=== PATIENT | male | born 1935 | race Caucasian/White ===

== ENCOUNTER → 2020-09-22 10:49 | Outpatient (BNVA) | payer MEDICARE, SELFPAY | PROVIDERS: Visit Provider Family Medicine | DX: Z79.01 Long term (current) use of anticoagulants (principal) | CPT/HCPCS: 85610 ==

== ENCOUNTER → 2020-10-21 08:36 | Outpatient (BNVA) | payer MEDICARE, SELFPAY | PROVIDERS: PCP Family Medicine; Visit Provider Emergency Medicine | DX: Z86.711 Personal history of pulmonary embolism (principal) | CPT/HCPCS: 85610 ==

== ENCOUNTER → 2020-11-01 10:21 | Outpatient (BNVA) | payer MEDICARE, SELFPAY | PROVIDERS: PCP Family Medicine; Visit Provider Student in an Organized Health Care Education/Training Program | DX: D89.89 Other specified disorders involving the immune mechanism, not elsewhere classified (principal); M32.19 Other organ or system involvement in systemic lupus erythematosus | CPT/HCPCS: 80053; 85025; 86140; 86160 ==

== ENCOUNTER → 2020-11-21 10:30 | Outpatient (BNVA) | payer MEDICARE, SELFPAY | PROVIDERS: PCP Family Medicine; Referring Provider Family Medicine; Visit Provider Family Medicine | DX: Z79.01 Long term (current) use of anticoagulants (principal) | CPT/HCPCS: 85610 ==

== ENCOUNTER → 2020-12-05 10:45 | Outpatient (BNVA) | payer MEDICARE, SELFPAY | PROVIDERS: PCP Family Medicine; Visit Provider Family Medicine | DX: Z79.01 Long term (current) use of anticoagulants (principal) | CPT/HCPCS: 85610 ==

== ENCOUNTER 2020-12-29 13:26 | Emergency (ER) | payer MEDICARE, SELFPAY ==
[2020-12-29 13:37] VITALS: BP 161/71; PULSE 69; RESP 16; TEMP 35.9; O2SAT 96; BMI 20.7
--- NOTE | 2020-12-29 14:05 | CT_ITS ---
WS: [id number] CT HEAD TECHNIQUE: Noncontrast CT of the head obtained from the skullbase to the vertex. CLINICAL INFORMATION: fall on coumadin COMPARISON: None. DLP: 914.[address] scans at [facility] use at least one of these dose optimization techniques: automated e xposure control; mA and/or kV adjustment per patient size (includes targeted exams where dose is matc hed to clinical indication); or iterative reconstruction. FINDINGS: No evidence of intracranial hemorrhage or mass effect. Ventricular system and basal cisterns are seg[place] nt. Moderate small vessel changes with moderate parenchymal volume loss. Tiny chronic lacunar infarct right thalamus. No extra-axial fluid collections. No evidence of mass or mass effect. Normal garcia-wh ite differentiation. Mastoid air cells are well aerated. Mild mucosal thickening paranasal sinuses. Partial opacification the right sphenoid sinus with inspissated secretions. CT/CT head wo con* [id number] IMPRESSION: 1. No evidence of intracranial hemorrhage or mass effect. 2. Moderate small vessel changes. Moderate parenchymal volume loss. 3. Inspissated secretions right sphenoid sinus. 4. No acute intracranial findings.
--- NOTE | 2020-12-29 14:05 | CT_ITS ---
WS: [id number] CT FACIAL BONES TECHNIQUE: Noncontrast facial bones with coronal and sagittal reformatted images. CLINICAL INFORMATION: fall COMPARISON: None. DLP: 744.[address] scans at [facility] use at least one of these dose optimization techniques: automated e xposure control; mA and/or kV adjustment per patient size (includes targeted exams where dose is matc hed to clinical indication); or iterative reconstruction. FINDINGS: Mild soft tissue edema overlying the right orbit. Frontal sinuses are well aerated. Mild mucosal thic kening in the ethmoid air cells. Inspissated secretions in the right sphenoid sinus. Nasal bones are normal. Normal pterygoid plates. No evidence of mandibular fracture dislocation. Lateral orbits are n ormal in appearance. Normal sphenoid wing. Orbits are normal in appearance. Normal lamina papyracea. Inferior orbits are normal in appearance. N o acute facial fractures. CT/CT facial bones wo con* [id number] IMPRESSION: 1. No acute facial fractures. 2. Soft tissue edema overlying the right orbit. 3. Inspissated secretions right sphenoid sinus.
--- NOTE | 2020-12-29 14:12 | ED_ITS ---
HPI - Fall General: Chief Complaint: Fall Stated Complaint: Fell, abrasions along left eye Time Seen by Provider: 12/29/20 13:48 History of Present Illness: HPI Narrative: 85-year-old male presents emergency room after a fall. Patient was at a he was standing outside of the [facility] service he felt hot and uncomfortable lightheaded and dizzy fell had a brief loss of consciousness. Bystanders assisted him. He is not sure how long he was down. He does have quite an abrasion with avulsion of skin above his left eye. Patient is normally on Coumadin for previous PE. He has no deficits has not had vomiting or diarrhea cough shortness of breath not had any chest pain at all. No difficulty with speech or swallowing. MD complaint: fall Fall from: standing Fall witnessed: yes, by bystander Place fall occurred: other Loss of consciousness: Unsure Prolonged down time: no Symptoms prior to fall: lightheadedness and dizziness Context: other (Prolonged standing in the heat, orthostatic) Location of injury: head Severity: mild Associated symptoms-after fall: Denies abdominal pain, chest pain, confusion, difficulty walking, headache(s), hematuria, lightheadedness, neck pain, numbness, short of breath, vertigo or weakness Review of Systems Const: Denies: fever(s), chills, body aches, change in appetite, fatigue or malaise ENMT: Denies: throat pain, ear or mastoid pain, nasal discharge or nasal congestion Card: Denies: chest pain or lightheadedness Resp: Denies: dyspnea, productive cough or non-productive cough GI: Denies: abdominal pain : Denies: hematuria Musc: Denies: neck pain Skin/Breast: Denies: rash or pruritus Neuro: Denies: headache(s), difficulty walking, vertigo or confusion PFSH ED PFSH: Medical History Allergic rhinitis Chronic anticoagulation INR goal 2-3 Chronic neck pain Hx of basal cell carcinoma Hx pulmonary embolism Hypertension Type 2 diabetes mellitus Diet managed Surgical History Hx of cataract surgery Family History Other CAD (coronary artery disease) Diabetes Social History Smoking and tobacco status: former smoker Alcohol intake: current Alcohol intake frequency: holidays/special occasions only Physical Exam Const: COMMON NORMALS: no acute distress GENERAL APPEARANCE: cooperative and comfortable ORIENTATION/CONSCIOUSNESS: Yes awake, Yes oriented to person, Yes oriented to place and Yes oriented to time HENMT: COMMON NORMALS: normocephalic, hearing grossly normal bilaterally, external ears normal, EAC's normal, TM's normal bilaterally, Normal nasal mucous membranes and turbinates present, moist oral mucous membranes and oropharynx normal HEAD & SCALP: normocephalic NOSE: Normal nasal mucous membranes and turbinates present EXTERNAL EAR: Yes external ears normal EXTERNAL AUDITORY CANAL: EAC's normal TYMPANIC MEMBRANE: TM's normal bilaterally OTHER: Overall nausea skin at the left lateral supraorbital ridge. Nothing amenable to suturing superficial skin is avulsed completely off in several areas very irregular Eye: COMMON NORMALS: Equal, round and reactive pupils present, EOMs intact bilaterally, conjunctivae normal and no scleral icterus CONJUNCTIVA: Yes conjunctivae normal PUPIL: Yes Equal, round and reactive pupils present Neck/C-Spine: COMMON NORMALS: full ROM, no lymphadenopathy, supple and no JVD OTHER: C-spine cleared clinically no range of motion pain or discomfort no pain on palpation Lymph: LYMPHATIC: no lymphadenopathy noted and no lymphedema noted Resp: COMMON NORMALS: normal respiratory effort, No retractions, No use of accessory muscles and clear to auscultation bilaterally AUSCULTATION: clear to auscultation bilaterally Cardio: COMMON NORMALS: no JVD, regular rate, regular rhythm and No murmurs present (Cardio) RATE: regular rate RHYTHM: regular rhythm GI: COMMON NORMALS: Soft to palpation and No hepatosplenomegaly present AUSCULTATION: Yes normoactive bowel sounds PALPATION: Yes Soft to palpation, No Tenderness to palpation present (GI), No Guarding due to palpation present (GI) and Yes No hepatosplenomegaly present Extremity: COMMON NORMALS: normal to inspection, capillary refill normal, no clubbing, cyanosis or edema, no calf tenderness and no pedal edema Neuro: SENSORIUM/ORIENTATION: Yes oriented to person, Yes oriented to place and Yes oriented to time Skin: COMMON NORMALS: no rashes or lesions noted GENERAL SKIN EXAM: no rashes or lesions noted Course Vital Signs: Vital signs: Vital Signs Temperature 96.7 F L 12/29/20 13:37 Pulse Rate 63 12/29/20 16:32 Respiratory Rate 19 H 12/29/20 16:32 Blood Pressure 160/78 12/29/20 16:32 Pulse Oximetry 96 12/29/20 16:32 MDM - Fall MDM Narrative: Medical decision making narrative: CTs are unremarkable patient awake alert and oriented no other injuries. We will go and discharge him home. Lab Data: Labs: Lab Results 12/29/20 12/29/20 12/29/20 Range/Units 14:47 14:47 14:47 WBC 8.5 (4.0-10.0) 10^3/ uL RBC 3.78 L (4.1-5.3) 10^6/u L Hgb 10.7 L (11.7-16.6) g/dL Hct 33.5 L (42.0-52.0) % MCV 88.6 (80-94) fl MCH 28.3 (28.0-34.0) pg MCHC 31.9 (30.0-36.0) g/dL RDW 14.6 (12.1-15.1) % Plt Count 230 (130-400) 10^3/c mm MPV 10.6 H (7.4-10.4) fL Neut % (Auto) 77.1 % Lymph % (Auto) 9.0 % [place] % (Auto) 9.6 % Eos % (Auto) 3.4 % Baso % (Auto) 0.4 % Neut # (Auto) 6.59 (1.8-7.7) 10^3/u L Lymph # (Auto) 0.8 (0.8-4.8) 10^3/u L [place] # (Auto) 0.8 (0.2-0.9) 10^3/u L Eos # (Auto) 0.3 (0.0-0.8) 10^3/u L Baso # (Auto) 0.0 (0.0-0.1) 10^3/u L Nucleated RBC % (a uto) 0 % Nucleated RBCs # 0.0 /100WBC PT 27.70 H (12.1-14.9) SECO NDS INR 2.53 H (0.8-1.2) Sodium 130 L (136-145) mmol/L Potassium 3.7 (3.5-5.1) mmol/L Chloride 97 L (98-107) mmol/L Carbon Dioxide 23 (22-29) mmol/L Anion Gap 13.7 (5-19) BUN 18 (8-23) mg/dL Creatinine 1.0 (0.7-1.2) mg/dL GFR Calculation Not Reportable Glucose 118 H (65-115) mg/dL Calculated Osmolal ity 273 L (285-295) mOsm/k g Calcium 8.3 L (8.5-10.5) mg/dL Total Bilirubin 0.2 (0.15-1.2) mg/dL AST 32 (0-40) U/L ALT 31 (0-41) U/L Alkaline Phosphata se 69 (40-130) IU/L Total Protein 7.1 (6.6-8.7) g/dL Albumin 3.7 (3.5-5.2) g/dL Globulin 3.4 (1.3-4.6) g/dL Discharge Plan Discharge Patient Disposition: Home Clinical Impression: Syncope Condition: Stable Prescriptions: New mupirocin 2 % ointment 1 applic topical BID Qty: 22 RF: 0 No Action lisinopril 40 mg tablet 40 mg PO DAILY RF: 0 amlodipine 5 mg tablet 5 mg PO DAILY RF: 0 metoprolol tartrate 25 mg tablet 25 mg PO DAILY RF: 0 fluoxetine 20 mg capsule 20 mg PO DAILY MDD see pharmacy comment RF: 0 warfarin 5 mg tablet See Rx Instructions mg PO DAILY RF: 0 hydroxychloroquine 200 mg tablet 200 mg PO BID RF: 0 Discharge Orders: Discharge ED (Routine); Ordered 12/29/20 Ordered By: Basilio Quintero Referrals: Giana Marie MD [Primary Care Provider] - Discharge Diet: Usual diet Discharge Activity: Increase activity as tolerated Patient Instructions: Opioid Safety Activity Restrictions/Additional Instructions: Follow-up with your primary care doctor in 5 to 7 days. Coding Level of Care Code ED Software Systems Engineer for Steffany Fwd Exam Comprehensive
[2020-12-29 14:21] VITALS: BP 160/73; PULSE 60; RESP 15; O2SAT 94
[2020-12-29 14:56] LABS: Basophils % 0.4 %; Eosinophils # 0.3 10^3/uL (0.0-0.8); Eosinophils % 3.4 %; Hematocrit 33.5 % (42.0-52.0); Hemoglobin 10.7 g/dL (11.7-16.6); Lymphocytes # 0.8 10^3/uL (0.8-4.8); Mean Corpuscular HGB Conc 31.9 g/dL (30.0-36.0); Mean Corpuscular Hemoglobin 28.3 pg (28.0-34.0); Mean Corpuscular Volume 88.6 fl (80-94); Mean Platelet Volume 10.6 fL (7.4-10.4); Monocytes # 0.8 10^3/uL (0.2-0.9); Monocytes % 9.6 %; Neutrophils # 6.59 10^3/uL (1.8-7.7); Neutrophils % 77.1 %; Nucleated Red Blood Cells % 0 %; Platelet Count 230 10^3/cmm (130-400); Red Blood Count 3.78 10^6/uL (4.1-5.3); Red Cell Distribution Width 14.6 % (12.1-15.1); White Blood Count 8.5 10^3/uL (4.0-10.0)
[2020-12-29 15:10] LABS: INR 2.53 (0.8-1.2)
[2020-12-29 15:14] LABS: Alanine Aminotransferase 31 U/L (0-41); Albumin Level 3.7 g/dL (3.5-5.2); Alkaline Phosphatase 69 IU/L (40-130); Anion Gap 13.7 (5-19); Aspartate Amino Transferase 32 U/L (0-40); Blood Urea Nitrogen 18 mg/dL (8-23); Calcium 8.3 mg/dL (8.5-10.5); Carbon Dioxide 23 mmol/L (22-29); Chloride 97 mmol/L (98-107); Globulin 3.4 g/dL (1.3-4.6); Glucose 118 mg/dL (65-115); Osmolality Calculated 273 mOsm/kg (285-295); Potassium 3.7 mmol/L (3.5-5.1); Sodium 130 mmol/L (136-145); Total Bilirubin 0.2 mg/dL (0.15-1.2); Total Protein 7.1 g/dL (6.6-8.7)
[2020-12-29 15:20] VITALS: PULSE 65; RESP 22; O2SAT 99
--- NOTE | 2020-12-29 15:22 | PC.NURSE ---
PATIENT ABRASION CLEANED WITH STERILE WATER AND STERILE 4X4 GAUZE. PATIENT SUTURE REMOVAL KIT USED TO REMOVE SCABBED SKIN. NEOSPORIN APPLIED TO LACERATION. PATIENT TOLERATED WELL.
[2020-12-29] MEDS: neomycin-poly-bacitracin oint 0.9 gm Pkt 2 APPLIC TOPICAL (15:25)
[2020-12-29 15:48] VITALS: BP 182/86; PULSE 65; RESP 17; O2SAT 98
[2020-12-29 16:32] VITALS: BP 160/78; PULSE 63; RESP 19; O2SAT 96
== END 2020-12-29 16:33 | disposition home or self-care (01) ==
PROVIDERS: Emergency Provider Family Medicine; PCP Family Medicine
DX: R55 Syncope and collapse (principal); Z79.01 Long term (current) use of anticoagulants; Z86.711 Personal history of pulmonary embolism; I10 Essential (primary) hypertension; E11.9 Type 2 diabetes mellitus without complications; Z87.891 Personal history of nicotine dependence
CPT/HCPCS: 70450; 70486; 80053; 85025; 85610; 99283

== ENCOUNTER → 2021-01-20 10:35 | Outpatient (BNVA) | payer MEDICARE, SELFPAY | PROVIDERS: PCP Family Medicine; Visit Provider Family Medicine | DX: Z79.01 Long term (current) use of anticoagulants (principal); Z86.711 Personal history of pulmonary embolism | CPT/HCPCS: 85610 ==

== ENCOUNTER → 2021-01-23 11:18 | Outpatient (BNVA) | payer MEDICARE, SELFPAY | PROVIDERS: PCP Family Medicine; Visit Provider Family Medicine | DX: K11.7 Disturbances of salivary secretion (principal) | CPT/HCPCS: 80053; 86235 ==

== ENCOUNTER → 2021-02-20 10:40 | Outpatient (BNVA) | payer MEDICARE, SELFPAY | PROVIDERS: PCP Family Medicine; Referring Provider Family Medicine; Visit Provider Family Medicine | DX: Z79.01 Long term (current) use of anticoagulants (principal) | CPT/HCPCS: 85610 ==

== ENCOUNTER → 2021-03-27 09:19 | Outpatient (BNVA) | payer MEDICARE, SELFPAY | PROVIDERS: PCP Family Medicine; Visit Provider Family Medicine | DX: Z86.711 Personal history of pulmonary embolism (principal); I34.0 Nonrheumatic mitral (valve) insufficiency | CPT/HCPCS: 85610 ==

== ENCOUNTER → 2021-04-23 10:30 | Outpatient (BNVA) | payer MEDICARE, SELFPAY | PROVIDERS: PCP Family Medicine; Visit Provider Emergency Medicine | DX: Z86.711 Personal history of pulmonary embolism (principal); I34.0 Nonrheumatic mitral (valve) insufficiency; I10 Essential (primary) hypertension; E11.9 Type 2 diabetes mellitus without complications; R10.9 Unspecified abdominal pain; R10.11 Right upper quadrant pain | CPT/HCPCS: 80053; 83690; 83880 ==

== ENCOUNTER → 2021-04-24 11:04 | Outpatient (BNVA) | payer MEDICARE, SELFPAY | PROVIDERS: PCP Family Medicine; Visit Provider Emergency Medicine | DX: E11.9 Type 2 diabetes mellitus without complications (principal); Z79.01 Long term (current) use of anticoagulants | CPT/HCPCS: 85610 ==

== ENCOUNTER → 2021-06-07 10:26 | Outpatient (BNVA) | payer MEDICARE, SELFPAY | PROVIDERS: PCP Family Medicine; Visit Provider Family Medicine | DX: Z79.01 Long term (current) use of anticoagulants (principal); Z86.711 Personal history of pulmonary embolism | CPT/HCPCS: 85610 ==

== ENCOUNTER → 2021-06-24 09:32 | Outpatient (BNVA) | payer MEDICARE, SELFPAY | PROVIDERS: PCP Family Medicine; Referring Provider Nurse Practitioner Family; Visit Provider Nurse Practitioner Family | DX: R19.8 Other specified symptoms and signs involving the digestive system and abdomen (principal); K21.9 Gastro-esophageal reflux disease without esophagitis; R14.3 Flatulence | CPT/HCPCS: 83630; 87338 ==

== ENCOUNTER → 2021-06-26 09:23 | Outpatient (BNVA) | payer MEDICARE, SELFPAY | PROVIDERS: PCP Family Medicine; Visit Provider Internal Medicine | DX: M35.0C Sjogren syndrome with dental involvement (principal); Z11.59 Encounter for screening for other viral diseases; Z11.1 Encounter for screening for respiratory tuberculosis; Z87.891 Personal history of nicotine dependence | CPT/HCPCS: 99204 ==

== ENCOUNTER → 2021-06-28 10:53 | Outpatient (BNVA) | payer MEDICARE, SELFPAY | PROVIDERS: PCP Family Medicine; Visit Provider Internal Medicine | DX: M35.0C Sjogren syndrome with dental involvement (principal); I10 Essential (primary) hypertension; Z79.01 Long term (current) use of anticoagulants; D89.89 Other specified disorders involving the immune mechanism, not elsewhere classified; Z11.59 Encounter for screening for other viral diseases | CPT/HCPCS: 84443; 85610; 85651; 86140; 86160; 86162; 86235; 86255; 86376; 86480; 86704; 86803; 87340 ==

== ENCOUNTER → 2021-07-18 09:56 | Outpatient (BNVA) | payer MEDICARE, SELFPAY | PROVIDERS: PCP Family Medicine; Visit Provider Family Medicine | DX: Z86.711 Personal history of pulmonary embolism (principal); Z79.01 Long term (current) use of anticoagulants; K63.89 Other specified diseases of intestine | CPT/HCPCS: 85610 ==

== ENCOUNTER 2021-08-08 12:26 | Outpatient (CLI) | payer MEDICARE, SELFPAY ==
--- NOTE | 2021-08-08 | USCV_ITS ---
Moiz Hernandez Age: 86 Gender: M : 1935 Exam Date: 08/08/2021 13:15 Ordering Phys: Giana Marie MD Technologist: VLADIMIR Exam Location: [facility] [place] Indication: NONRHEUMATIC MITRAL VALVE INSUFFICIENCY BP: 144 / 77 HR: 61 Rhythm: Sinus Technical Quality: Adequate MEASUREMENTS (Male / Female) Normal Values 2D ECHO LV Diastolic Diameter PLAX 5.3 cm 4.2 - 5.9 / 3.9 - 5.3 cm LV Systolic Diameter PLAX 3.2 cm IVS Diastolic Thickness 1.0 cm 0.6 - 1.0 / 0.6 - 0.9 cm IVS Systolic Thickness 1.9 cm LVPW Diastolic Thickness 1.3 cm 0.6 - 1.0 / 0.6 - 0.9 cm LVPW Systolic Thickness 1.4 cm RV Chamber Size 3.3 cm LVOT Diameter 2.1 cm LV Ejection Fraction 2D Teich 71.3 % LV Ejection Fraction MOD 2C 66.3 % LV Ejection Fraction 2C AL 66.4 % LA Diameter 4.7 cm LA Width 4.7 cm LA Height 5.1 cm RA Width 4.2 cm RA Height 6.2 cm Aorta at Sinotubular Diameter 3.2 cm M-MODE Aortic Annulus Diameter 3.2 cm LA Ao Ratio MM 1.4 MV E Point Septal Separation 0.5 cm DOPPLER AV Peak Velocity 314.0 cm/s LVOT Peak Velocity 109.0 cm/s AV Area Cont Eq vti 1.1 cm squared AV Area Cont Eq pk 1.2 cm squared MV Area PHT 5.0 cm squared MV E' Velocity 79.5 cm/s Mitral E to MV E' Ratio 10.0 Mitral E to LV E' Lateral Ratio 9.3 Mitral E to LV E' Septal Ratio 10.9 TR Peak Velocity 324.0 cm/s TR Peak Gradient 42.0 mmHg TR Mean Velocity 232.7 cm/s TR Mean Gradient 24.5 mmHg TR Velocity Time Integral 111.5 cm TV Peak E Velocity 62.0 cm/s PV Peak Velocity 89.0 cm/s RV Acceleration Time 0.1 s RV Ejection Time 0.3 s RV AcT/ET 0.3 FINDINGS Left Ventricle Normal left ventricular size. LV systolic function is normal with EF of 55-60%. No regional wall motion abnormalities. Right Ventricle The right ventricle is normal in size and function. Right Atrium The right atrium is normal in size. Left Atrium The left atrium is dilated Mitral Valve Moderate mitral annular calcification and thickened mitral valve without significant stenosis or prolapse. There is moderate to severe mitral regurgitation. Aortic Valve Aortic valve is thickened. Mild to moderarte aortic stenosis. Aortic valve area of 1.06cm2 with mean gradient of 20mmHg. There is mild to moderate aortic regurgitation. Tricuspid Valve Structurally normal tricuspid valve without significant stenosis. Moderate tricuspid regurgitation. RVSP is 40-45mmHg. This is consistent with mild pulmonary hypertension Pulmonic Valve Structurally normal pulmonic valve without significant stenosis. There is mild pulmonic regurgitation. Pericardium Normal pericardium without effusion. Aorta Normal ascending aorta dimension. CONCLUSIONS LV systolic function is normal with EF of 55-60% Left atrial enlargement Moderate mitral annular calcification and thickened mitral valve without significant stenosis or prolapse. There is moderate to severe mitral regurgitation. Aortic valve is thickened. Mild to moderarte aortic stenosis. Aortic valve area of 1.06cm2 with mean gradient of 20mmHg. There is mild to moderate aortic regurgitation. Structurally normal tricuspid valve without significant stenosis. Moderate tricuspid regurgitation. RVSP is 40-45mmHg. This is consistent with mild pulmonary hypertension There is mild pulmonic regurgitation. No comparison studies are available Andrew Decker MD (Electronically Signed) Final Date: 21 Aug 2021 10:14 S
--- NOTE | 2021-08-08 14:10 | XR_ITS ---
WS: [id number] LEFT RIBS, MULTIPLE VIEWS HISTORY: CHEST PAIN COMPARISON: None available. Ribs: No rib fractures or bone destruction identified. Lungs and mediastinum: Visualized lung is clear. Atherosclerotic changes within the aorta. Osteopenia. Moderate facet joint arthritis and spondylitic changes throughout the thoracic spine. XR/XR ribs LT 2V* [id number] IMPRESSION: No LEFT rib fractures identified.
== END 2021-08-08 12:27 | disposition home or self-care (01) ==
LOC: RAD 12:27
PROVIDERS: PCP Family Medicine; Visit Provider Family Medicine
DX: I34.0 Nonrheumatic mitral (valve) insufficiency (principal)
CPT/HCPCS: 71100; 93306

== ENCOUNTER → 2021-08-10 10:38 | Outpatient (BNVA) | payer MEDICARE, SELFPAY | PROVIDERS: PCP Family Medicine; Visit Provider Internal Medicine | DX: M35.0C Sjogren syndrome with dental involvement (principal); D89.89 Other specified disorders involving the immune mechanism, not elsewhere classified; Z79.899 Other long term (current) drug therapy; Z87.891 Personal history of nicotine dependence | CPT/HCPCS: 99214 ==

== ENCOUNTER → 2021-09-12 10:12 | Outpatient (BNVA) | payer MEDICARE, SELFPAY | PROVIDERS: PCP Family Medicine; Visit Provider Emergency Medicine | DX: Z79.01 Long term (current) use of anticoagulants (principal); Z86.711 Personal history of pulmonary embolism; I10 Essential (primary) hypertension | CPT/HCPCS: 85610 ==

== ENCOUNTER → 2021-10-20 09:52 | Outpatient (BNVA) | payer MEDICARE, SELFPAY | PROVIDERS: PCP Family Medicine; Visit Provider Family Medicine | DX: M35.0C Sjogren syndrome with dental involvement (principal); E11.9 Type 2 diabetes mellitus without complications; I10 Essential (primary) hypertension; Z13.220 Encounter for screening for lipoid disorders; Z13.6 Encounter for screening for cardiovascular disorders; Z79.01 Long term (current) use of anticoagulants | CPT/HCPCS: 80048; 80061; 83036; 85610; 85651; 86140 ==

== ENCOUNTER 2021-12-22 09:12 | Emergency (ER) | payer MEDICARE, SELFPAY ==
[2021-12-22 09:16] VITALS: BP 129/65; PULSE 80; RESP 18; TEMP 36.3; O2SAT 95
[2021-12-22 09:24] VITALS: O2SAT 95
--- NOTE | 2021-12-22 09:32 | XR_ITS ---
WS: [id number] Exam: XR chest 1V portable [id number] Date/Time of Exam: 12/22/2021 9:37 AM Reason For Exam: SOB, cough, probable COvid No priors. The lungs are fully expanded and clear. Normal cardiomediastinal silhouette. No pleural effusions. Re gional bony elements appear normal. XR/XR chest 1V portable [id number] IMPRESSION: 1. No acute cardiopulmonary finding.
--- NOTE | 2021-12-22 09:33 | ED_ITS ---
HPI - COVID General: Chief Complaint: COVID symptoms Stated Complaint: low o2, chills Time Seen by Provider: 12/22/21 09:13 Source: patient Mode of arrival: ambulatory Limitations: no limitations Triage information: No fever, cough or shortness of breath . Exposure to COVID + person last 14 days History of Present Illness: 86-year-old male presents to the ER today with for fever, body aches, chills, congestion, cough, chest congestion x24 hours. Patient reports his had COVID last week. He reports he has been not feeling well for couple of days but last night his symptoms really worsened. Patient reports he did not sleep much last night due to the chills and body aches. Patient reports he feels like his chest is tight and he has a nonproductive cough. Patient has been taking Mucinex at home but denies any other [id number] medications. COVID Results: SARS-CoV-2 Antigen (Rapid) Positive (Negative) H 12/22/21 10:0 0 Review of Systems General: Reports: 10 or more systems reviewed and unremarkable except in HPI and below PFSH ED PFSH: Medical History Allergic rhinitis Chronic anticoagulation INR goal 2-3 Chronic neck pain Hx of basal cell carcinoma Hx pulmonary embolism Hypertension Type 2 diabetes mellitus Diet managed Surgical History Hx of cataract surgery Family History Other CAD (coronary artery disease) Cancer Diabetes Heart attack Hyperlipidemia Hypertension Rheumatoid arthritis Stroke Denies family history of Lupus Chronic kidney disease (CKD) Social History Smoking and tobacco status: former smoker Alcohol intake: current Alcohol intake frequency: few times a week History of recent travel: No Physical Exam Const: COMMON NORMALS: no acute distress, average body habitus, patient orient ed x3, no limitations, healthy appearing, alert and well nourished HENMT: COMMON NORMALS: normocephalic, atraumatic, external ears normal, Normal external nose present, Normal nasal mucous membranes and turbinates present and moist oral mucous membranes HEAD & SCALP: normocephalic and atraumatic NOSE: Normal external nose present and Normal nasal mucous membranes and turbinates present EXTERNAL EAR: Yes external ears normal Eye: COMMON NORMALS: conjunctivae normal CONJUNCTIVA: Yes conjunctivae normal Neck/C-Spine: COMMON NORMALS: full ROM and no lymphadenopathy Resp: COMMON NORMALS: normal respiratory effort and No retractions AUSCULTATION: no rales, rhonchi lower bilaterally and no wheezes Cardio: COMMON NORMALS: regular rate and regular rhythm; negative for No murmurs present (Cardio) RATE: regular rate RHYTHM: regular rhythm HEART SOUNDS: Murmur heart sound present GI: COMMON NORMALS: Normal to inspection, nondistended, normoactive bowel soun ds present, Soft to palpation and non-tender PALPATION: Yes Soft to palpation Extremity: COMMON NORMALS: normal to inspection and full ROM Neuro: COMMON NORMALS: patient oriented x3 SENSORIUM/ORIENTATION: Yes alert Psych: COMMON NORMALS: mental status grossly normal, Normal thought process present and cooperative THOUGHT PROCESS: Normal thought process present Skin: COMMON NORMALS: no rashes or lesions noted GENERAL SKIN EXAM: no rashes or lesions noted Course ED course: 86-year-old male presents to the ER today with for possible COVID. Patient reports his had COVID last week. He reports last night his symptoms really worsened. He reports fever, chills, body aches, cough, congestion, chest congestion. Patient reports has been taken Mucinex with minimal improvement at home. We will do a COVID swab and labs today. Patient does have some abnormal breath sounds we will do a chest x-ray also. Vital Signs: Vital signs: Vital Signs Temperature 97.3 F L 12/22/21 09:16 Pulse Rate 80 12/22/21 10:58 Respiratory Rate 15 12/22/21 10:58 Blood Pressure 133/68 12/22/21 10:58 Pulse Oximetry 95 12/22/21 10:58 Oxygen Delivery Me thod 12/22/21 10:58 MDM - COVID Medical Decision Making 86-year-old male presents to the ER today with for possible COVID. Patient reports his had COVID last week. He reports last night his symptoms really worsened. He reports fever, chills, body aches, cough, congestion, chest congestion. Patient reports has been taken Mucinex with minimal improvement at home. We will do a COVID swab and labs today. Patient does have some abnormal breath sounds we will do a chest x-ray also. Labs are mostly unremarkable. Chest x-ray is normal. Patient was COVID+. He is stable and vitals are stable. We discussed treatments for COVID including Paxlovid that however patient does not wish to have the Paxlovid that at this time. Recommended patient take [id number] medications for symptomatic relief. Alternate Tylenol and ibuprofen for pain and chills. Take Mucinex 1200 mg twice daily. Follow-up with PCP in 5 to 7 days if no improvement. Return to the ER with any new or worsening symptoms. Patient verbalized understanding was in agreement with the treatment plan. Lab Data : 12/22/21 10:00 12/22/21 10:00 Radiology Impressions Chest X-Ray 12/22/21 09:32 IMPRESSION: 1. No acute cardiopulmonary finding. Laboratory Results WBC 9.4 10^3/uL (4.0-10.0) 12/22/21 10:00 RBC 4.37 10^6/uL (4.1-5.3) 12/22/21 10:00 Hgb 11.9 g/dL (11.7-16.6) 12/22/21 10:00 Hct 37.4 % (42.0-52.0) L 12/22/21 10:00 MCV 85.6 fl (80-94) 12/22/21 10:00 MCH 27.2 pg (28.0-34.0) L 12/22/21 10:00 MCHC 31.8 g/dL (30.0-36.0) 12/22/21 10:00 RDW 14.9 % (12.1-15.1) 12/22/21 10:00 Plt Count 273 10^3/cmm (130-400) 12/22/21 10:00 MPV 10.5 fL (7.4-10.4) H 12/22/21 10:00 Neut % (Auto) 85.1 % 12/22/21 10:00 Lymph % (Auto) 9.0 % 12/22/21 10:00 [place] % (Auto) 5.1 % 12/22/21 10:00 Eos % (Auto) 0.1 % 12/22/21 10:00 Baso % (Auto) 0.1 % 12/22/21 10:00 Neut # (Auto) 7.98 10^3/uL (1.8-7.7) H 12/22/21 10:00 Lymph # (Auto) 0.8 10^3/uL (0.8-4.8) 12/22/21 10:00 [place] # (Auto) 0.5 10^3/uL (0.2-0.9) 12/22/21 10:00 Eos # (Auto) 0.0 10^3/uL (0.0-0.8) 12/22/21 10:00 Baso # (Auto) 0.0 10^3/uL (0.0-0.1) 12/22/21 10:00 Nucleated RBC % (auto) 0 % 12/22/21 10:00 Nucleated RBCs # 0.0 /100WBC 12/22/21 10:00 Sodium 133 mmol/L (136-145) L 12/22/21 10:00 Potassium 4.6 mmol/L (3.5-5.1) 12/22/21 10:00 Chloride 97 mmol/L (98-107) L 12/22/21 10:00 Carbon Dioxide 24 mmol/L (22-29) 12/22/21 10:00 Anion Gap 16.6 (5-19) 12/22/21 10:00 BUN 23 mg/dL (8-23) 12/22/21 10:00 Creatinine 1.1 mg/dL (0.7-1.2) 12/22/21 10:00 GFR Calculation Not Reportable 12/22/21 10:00 Glucose 128 mg/dL (65-115) H 12/22/21 10:00 Calculated Osmolality 281 mOsm/kg (285-295) L 12/22/21 10:00 Calcium 8.7 mg/dL (8.5-10.5) 12/22/21 10:00 Total Bilirubin 0.4 mg/dL (0.15-1.2) 12/22/21 10:00 AST 38 U/L (0-40) 12/22/21 10:00 ALT 36 U/L (0-41) 12/22/21 10:00 Alkaline Phosphatase 82 U/L (40-130) 12/22/21 10:00 Total Protein 9.0 g/dL (6.6-8.7) H 12/22/21 10:00 Albumin 3.8 g/dL (3.5-5.2) 12/22/21 10:00 Globulin 5.2 g/dL (1.3-4.6) H 12/22/21 10:00 SARS-CoV-2 Ag (Rapid) Positive (Negative) H 12/22/21 10:00 SARS-CoV-2 Antigen (Rapid) Positive (Negative) H 12/22/21 10:0 0 Critical Care Time Critical Care Time: Critical Care Time: No Discharge Plan Discharge Patient Disposition: Home Clinical Impression: COVID-19 Condition: Stable Prescriptions: No Action warfarin 5 mg tablet See Rx Instructions PO DAILY Protocol: Dose Management Condition: Saturday Dose/Route: 5 mg Instruction: 1 x 5 mg tablet Condition: Saturday Dose/Route: 7.5 mg Instruction: 1.5 x 5 mg tablets Condition: Saturday Dose/Route: 5 mg Instruction: 1 x 5 mg tablet Condition: Saturday Dose/Route: 5 mg Instruction: 1 x 5 mg tablet Condition: Dose/Route: 5 mg Instruction: 1 x 5 mg tablet Condition: Saturday Dose/Route: 7.5 mg Instruction: 1.5 x 5 mg tablets Condition: Saturday Dose/Route: 5 mg Instruction: 1 x 5 mg tablet Protocol Text: Adjustment Start Date: Saturday07/18/21 INR Value: 27.1 Seconds INR Date: 07/18/21 Recheck Date: 08/17/21 Rx Instructions: 5mg on Sat, , , Sat, Sat 7.5mg on , & Sat tamsulosin [Flomax] 0.4 mg capsule 0.4 mg PO DAILY Qty: 60 0RF Hold Instructions: Home Medication placed on hold at Doctor's office hydroxychloroquine 200 mg tablet 200 mg PO BID Qty: 60 3RF amlodipine 10 mg tablet 10 mg PO DAILY 90 Days Qty: 90 1RF fluticasone propionate [Flonase Allergy Relief] 50 mcg/actuation spra y,suspension 1 spray intranasal BID Qty: 16 5RF Rx Instructions: administer into each nostril lisinopril 40 mg tablet 40 mg PO DAILY 90 Days Qty: 90 1RF metoprolol succinate 25 mg tablet extended release 24 hr 25 mg PO DAILY 90 Days Qty: 90 1RF omeprazole 40 mg capsule,delayed release(DR/EC) 40 mg PO BID 90 Days Qty: 180 1RF fluoxetine 20 mg capsule 20 mg PO DAILY 30 Days Qty: 30 1RF Hold Instructions: Home Medication placed on hold at Doctor's office Discharge Orders: Discharge ED (Routine); Ordered 12/22/21 Ordered By: Jo-Ann Kemp Referrals: Giana Marie MD [Primary Care Provider] - Discharge Diet: Usual diet Discharge Activity: Increase activity as tolerated Patient Instructions: Opioid Safety Activity Restrictions/Additional Instructions: Take Mucinex 1200 mg twice daily as discussed. Push fluids. Alternate Tylenol and ibuprofen for pain and fevers. Follow-up with PCP in 5 to 7 days if no improvement. Return to the ER with new or worsening symptoms. Coding Level of Care Code ED Organic Preparation Technician for Steffany Redmond Exam Comprehensive
[2021-12-22 10:10] LABS: Basophils % 0.1 %; Eosinophils % 0.1 %; Hematocrit 37.4 % (42.0-52.0); Hemoglobin 11.9 g/dL (11.7-16.6); Lymphocytes # 0.8 10^3/uL (0.8-4.8); Mean Corpuscular HGB Conc 31.8 g/dL (30.0-36.0); Mean Corpuscular Hemoglobin 27.2 pg (28.0-34.0); Mean Corpuscular Volume 85.6 fl (80-94); Mean Platelet Volume 10.5 fL (7.4-10.4); Monocytes # 0.5 10^3/uL (0.2-0.9); Monocytes % 5.1 %; Neutrophils # 7.98 10^3/uL (1.8-7.7); Neutrophils % 85.1 %; Nucleated Red Blood Cells % 0 %; Platelet Count 273 10^3/cmm (130-400); Red Blood Count 4.37 10^6/uL (4.1-5.3); Red Cell Distribution Width 14.9 % (12.1-15.1); White Blood Count 9.4 10^3/uL (4.0-10.0)
[2021-12-22 10:30] LABS: Alanine Aminotransferase 36 U/L (0-41); Albumin Level 3.8 g/dL (3.5-5.2); Alkaline Phosphatase 82 U/L (40-130); Blood Urea Nitrogen 23 mg/dL (8-23); Calcium 8.7 mg/dL (8.5-10.5); Carbon Dioxide 24 mmol/L (22-29); Chloride 97 mmol/L (98-107); Globulin 5.2 g/dL (1.3-4.6); Glucose 128 mg/dL (65-115); Osmolality Calculated 281 mOsm/kg (285-295); Sodium 133 mmol/L (136-145); Total Bilirubin 0.4 mg/dL (0.15-1.2)
[2021-12-22 10:41] LABS: Anion Gap 16.6 (5-19); Aspartate Amino Transferase 38 U/L (0-40); Potassium 4.6 mmol/L (3.5-5.1)
[2021-12-22 10:58] VITALS: BP 133/68; PULSE 80; RESP 15; O2SAT 95
[2021-12-22 11:04] LABS: SARS Covid-2 Antigen Positive (Negative)
== END 2021-12-22 11:00 | disposition home or self-care (01) ==
PROVIDERS: Emergency Provider Physician Assistant; PCP Family Medicine
DX: U07.1 COVID-19 (principal); Z79.01 Long term (current) use of anticoagulants; I10 Essential (primary) hypertension; E11.9 Type 2 diabetes mellitus without complications; Z87.891 Personal history of nicotine dependence
CPT/HCPCS: 71045; 80053; 85025; 87426; 99284

== ENCOUNTER → 2021-12-27 10:46 | Outpatient (BNVA) | payer MEDICARE, SELFPAY | PROVIDERS: PCP Family Medicine; Visit Provider Emergency Medicine | DX: R10.9 Unspecified abdominal pain (principal); R39.11 Hesitancy of micturition; R35.1 Nocturia; N39.9 Disorder of urinary system, unspecified; R19.8 Other specified symptoms and signs involving the digestive system and abdomen; R19.4 Change in bowel habit; Z79.01 Long term (current) use of anticoagulants | CPT/HCPCS: 80053; 81000; 85025; 85610; 87086; G0103 ==

== ENCOUNTER → 2021-12-28 09:27 | Outpatient (BNVA) | payer MEDICARE, SELFPAY | PROVIDERS: PCP Family Medicine; Visit Provider Emergency Medicine | DX: R10.9 Unspecified abdominal pain (principal); R39.11 Hesitancy of micturition; R35.1 Nocturia; N39.9 Disorder of urinary system, unspecified; R19.8 Other specified symptoms and signs involving the digestive system and abdomen; R19.4 Change in bowel habit; Z79.01 Long term (current) use of anticoagulants | CPT/HCPCS: 82270 ==

== ENCOUNTER → 2022-01-04 12:39 | Outpatient (BNVA) | payer MEDICARE, SELFPAY | PROVIDERS: PCP Family Medicine; Visit Provider Surgery | DX: R14.0 Abdominal distension (gaseous) (principal); R10.13 Epigastric pain | CPT/HCPCS: 99203 ==

== ENCOUNTER → 2022-01-12 10:10 | Outpatient (BNVA) | payer MEDICARE, SELFPAY | PROVIDERS: PCP Family Medicine; Visit Provider Family Medicine | DX: Z79.01 Long term (current) use of anticoagulants (principal) | CPT/HCPCS: 85610 ==

== ENCOUNTER 2022-02-05 10:04 | Outpatient (CLI) | payer MEDICARE, SELFPAY ==
--- NOTE | 2022-02-05 10:30 | US_ITS ---
WS: [id number] RIGHT UPPER QUADRANT ULTRASOUND HISTORY: abd discomfort COMPARISON: None available. Liver: 17.0 cm in length. Liver is slightly enlarged. No mass or bile duct dilatation. The entire latha er is difficult to visualize due to patient's body habitus. No bile duct dilatation. Portal Vein: Normal hepatopetal flow with monophasic waveform. Gallbladder: Normally distended gallbladder with no stones or wall thickening. CBD: 0.7 cm Pancreas: Poorly visualized. The head is obscured by bowel gas. Tail is also obscured. Body is normal . Right kidney: 11.4 cm in length. Normal size kidney. Simple cyst in the upper pole measures 2.7 x 3.5 x 2.5 cm. Aorta and IVC: Mild atherosclerosis aorta. No ascites. US/US gall bladder [id number] IMPRESSION: 1. Normal gallbladder. 2. Mild hepatomegaly. 3. Simple RIGHT renal cyst.
== END 2022-02-05 10:05 | disposition home or self-care (01) ==
LOC: RAD 10:05
PROVIDERS: PCP Family Medicine; Visit Provider Surgery
DX: R10.9 Unspecified abdominal pain (principal); N28.1 Cyst of kidney, acquired; R16.0 Hepatomegaly, not elsewhere classified
CPT/HCPCS: 76705

== ENCOUNTER → 2022-02-08 12:10 | Outpatient (BNVA) | payer MEDICARE, SELFPAY | PROVIDERS: PCP Family Medicine; Visit Provider Family Medicine | DX: Z79.01 Long term (current) use of anticoagulants (principal); I35.0 Nonrheumatic aortic (valve) stenosis | CPT/HCPCS: 85610 ==

== ENCOUNTER → 2022-02-14 10:04 | Outpatient (BNVA) | payer MEDICARE, SELFPAY | PROVIDERS: PCP Family Medicine; Visit Provider Surgery | DX: Z09 Encounter for follow-up examination after completed treatment for conditions other than malignant neoplasm (principal); R14.0 Abdominal distension (gaseous) | CPT/HCPCS: 99213 ==

== ENCOUNTER → 2022-02-22 11:46 | Outpatient (BNVA) | payer MEDICARE, SELFPAY | PROVIDERS: PCP Family Medicine; Visit Provider Family Medicine | DX: Z79.01 Long term (current) use of anticoagulants (principal); I35.0 Nonrheumatic aortic (valve) stenosis | CPT/HCPCS: 85610 ==

== ENCOUNTER 2022-03-02 08:22 | Outpatient (CLI) | payer MEDICARE, SELFPAY ==
--- NOTE | 2022-03-02 08:29 | FL_ITS ---
WS: [id number] Barium Enema TECHNICAL: Double contrast barium enema. FLUOROSCOPY TIME: 5min [id number] # of spot films: 29 CLINICAL INFORMATION: ABDOMINAL BLOATING COMPARISON: None. FINDINGS: Tortuous sigmoid colon. Prominent sigmoid and descending colon diverticulosis. Additional d iverticulosis in the transverse colon. No evidence of high-grade stricture or obstructing mass. Evide nce of prior diverticulitis with mild stricturing in the sigmoid colon. Normal ileocecal valve. Contr ast rapidly travels to the ileocecal valve without evidence of obstructing stricture or mass. No susp icious high-grade filling defects. Osteopenia. No other suspicious findings. FL/FL barium enema w air* [id number] IMPRESSION: 1. Extensive colonic diverticulosis more prominent in the descending colon and sigmoid colon. 2. Evidence of prior sigmoid diverticulitis with mild stricturing of the sigmo id colon. No obstruction. 3. Tortuous somewhat patulous sigmoid colon. 4. No evidence of high-grade stricture or obstructing mass. 5. Normal ileocecal valve. 6. No other significant findings.
== END 2022-03-02 08:23 | disposition home or self-care (01) ==
LOC: RAD 08:22
PROVIDERS: PCP Family Medicine; Visit Provider Surgery
DX: R14.0 Abdominal distension (gaseous) (principal); K57.90 Diverticulosis of intestine, part unspecified, without perforation or abscess without bleeding
CPT/HCPCS: 74280

== ENCOUNTER 2022-03-07 09:30 | Outpatient (CLI) | payer MEDICARE, SELFPAY ==
--- NOTE | 2022-03-07 10:00 | NM_ITS ---
WS: [id number] NUCLEAR MEDICINE HIDA SCAN CLINICAL INFORMATION: abd pain TECHNIQUE: Following intravenous administration of 4.8 mCi of technetium 99m mebrofenin, images of th e abdomen were obtained over the course of 60 minutes. Next, gallbladder ejection fraction was determ ined by obtaining preprandial and one-hour postprandial images of the gallbladder following oral janette stion of Ensure. COMPARISON: February 05, 2022 FINDINGS: Normal hepatic uptake at 5 minutes. Mild hepatomegaly. Normal hepatic excretion. Gallbladder is visua lized by 30 minutes. No evidence of acute cholecystitis. Normal common bile duct and small bowel acti vity. Gallbladder ejection fraction 94% within normal limits. No evidence of chronic cholecystitis. NM/NM hepatobiliary w phar* [id number] IMPRESSION: Normal HIDA scan
== END 2022-03-07 09:31 | disposition home or self-care (01) ==
LOC: RAD 09:31
PROVIDERS: PCP Family Medicine; Visit Provider Surgery
DX: R10.9 Unspecified abdominal pain (principal); R14.0 Abdominal distension (gaseous)
CPT/HCPCS: 78227; A9537

== ENCOUNTER → 2022-03-09 11:37 | Outpatient (BNVA) | payer MEDICARE, SELFPAY | PROVIDERS: PCP Family Medicine; Referring Provider Family Medicine; Visit Provider Family Medicine | DX: I35.0 Nonrheumatic aortic (valve) stenosis (principal); Z79.01 Long term (current) use of anticoagulants | CPT/HCPCS: 85610 ==

== ENCOUNTER → 2022-03-21 14:22 | Outpatient (BNVA) | payer MEDICARE, SELFPAY | PROVIDERS: PCP Family Medicine; Visit Provider Surgery | DX: Z09 Encounter for follow-up examination after completed treatment for conditions other than malignant neoplasm (principal); R14.0 Abdominal distension (gaseous) | CPT/HCPCS: 99213 ==

== ENCOUNTER 2022-03-29 15:38 | Emergency (ER) | payer MEDICARE, SELFPAY ==
[2022-03-29 15:51] VITALS: BP 167/83; PULSE 79; RESP 14; TEMP 36.9; O2SAT 98; BMI 20.7
--- NOTE | 2022-03-29 16:24 | CTR_ITS ---
PROCEDURE INFORMATION: Exam: CT Head Without Contrast Exam date and time: 03/29/2022 4:37 PM Age: 86 years old Clinical indication: Injury or trauma; Fall; Blunt trauma (contusions or hematomas); Additional info: Fall/trauma TECHNIQUE: Imaging protocol: Computed tomography of the head without contrast. Radiation optimization: All CT scans at this facility use at least one of these dose optimization techniques: automated exposure control; mA and/or kV adjustment per patient size (includes targeted exams where dose is matched to clinical indication); or iterative reconstruction. COMPARISON: CT head wo con* [id number] 12/29/2020 2:10 PM RADIATION DOSE METRICS: Total DLP (mGy-cm): 1049.58 FINDINGS: Brain: No hemorrhage. No edema. Moderate diffuse cerebral atrophy and mild sequela of chronic small vessel ischemic disease. No mass effect. Cerebral ventricles: No ventriculomegaly. Paranasal sinuses: Partially opacified right sphenoid sinus. The rest of the paranasal sinuses are well pneumatized. Mastoid air cells: Visualized mastoid air cells are well aerated. Bones/joints: Unremarkable. No acute fracture. Soft tissues: Right forehead/periorbital hematoma. CT/CT head wo con* [id number] IMPRESSION: No acute intracranial abnormality.
--- NOTE | 2022-03-29 16:24 | CTR_ITS ---
PROCEDURE INFORMATION: Exam: CT Maxillofacial Without Contrast Exam date and time: 03/29/2022 4:43 PM Age: 86 years old Clinical indication: Injury or trauma; Fall; Blunt trauma (contusions or hematomas); Ocular (eye or eyeball); Right; Additional info: Fall/trauma; R periorbital hematoma TECHNIQUE: Imaging protocol: Computed tomography of the face without contrast. Radiation optimization: All CT scans at this facility use at least one of these dose optimization techniques: automated exposure control; mA and/or kV adjustment per patient size (includes targeted exams where dose is matched to clinical indication); or iterative reconstruction. COMPARISON: CT head wo con* [id number] 03/29/2022 4:37 PM RADIATION DOSE METRICS: Total DLP (mGy-cm): 172.97 FINDINGS: Orbital cavities: Orbits are normal. Globes are unremarkable. Bones/joints: No acute fracture. Paranasal sinuses: Partially opacified right sphenoid sinus. The rest of the paranasal sinuses are well pneumatized. Soft tissues: Right forehead/periorbital hematoma. CT/CT facial bones wo con* [id number] IMPRESSION: No acute osseous abnormalities of the maxillofacial structures.
--- NOTE | 2022-03-29 16:24 | CTR_ITS ---
PROCEDURE INFORMATION: Exam: CT Cervical Spine Without Contrast Exam date and time: 03/29/2022 4:40 PM Age: 86 years old Clinical indication: Injury or trauma; Fall; Blunt trauma; Additional info: Fall/trauma TECHNIQUE: Imaging protocol: Computed tomography of the cervical spine without contrast. Radiation optimization: All CT scans at this facility use at least one of these dose optimization techniques: automated exposure control; mA and/or kV adjustment per patient size (includes targeted exams where dose is matched to clinical indication); or iterative reconstruction. COMPARISON: CT head wo con* [id number] 03/29/2022 4:37 PM RADIATION DOSE METRICS: Total DLP (mGy-cm): 172.97 FINDINGS: Bones/joints: No acute fracture. Normal alignment. No significant disc protrusion. No severe spinal canal stenosis. Lungs: Lung apices are normal. Soft tissues: Unremarkable. CT/CT cervical spin wo con* [id number] IMPRESSION: No acute findings.
--- NOTE | 2022-03-29 16:25 | ED_ITS ---
Documented by User: NAI Naranjo 03/31/22 07:03 HPI - Head Injury General: Chief complaint: Head Injury Stated complaint: fall, head injury Time Seen by Provider: 03/29/22 16:07 Source: patient and family Mode of arrival: ambulatory Limitations: no limitations History of Present Illness: Patient is a nice 86-year-old male who presents to ED today with a complaint of a head and face injury. Patient tells me earlier today he accidentally tripped stating I just did not pick my feet up far enough and fell face first onto the floor. Patient sustained a fairly large right periorbital hematoma. Patient states he is concerned because he is on warfarin and wanted to make sure he did not have an intracranial bleed. Patient has not had any altered mental status. No nausea or vomiting. He denies any other injuries sustained during his fall. Denied LOC. Denies neck pain. MD Complaint: head injury Onset (ago): hour(s) Mechanism of Injury: fall Place: home Loss of Consciousness: no Location of injury: face Radiation: none Other Injuries: none Context: on warfarin [facility] ED PFSH: Medical History Abdominal discomfort Allergic rhinitis Change in stool habits Chronic anticoagulation INR goal 2-3 Chronic neck pain Hx of basal cell carcinoma Hx pulmonary embolism Hypertension Nocturia more than twice per night Type 2 diabetes mellitus Diet managed Urinary hesitancy Surgical History Hx of cataract surgery Family History Other CAD (coronary artery disease) Cancer Diabetes Heart attack Hyperlipidemia Hypertension Rheumatoid arthritis Stroke Denies family history of Lupus Chronic kidney disease (CKD) Social History Smoking and tobacco status: never smoked Alcohol intake: current Alcohol intake frequency: few times a week History of recent travel: No Course ED course: Care was transferred to MARIA C Mcdonald pending CT imaging. Vital Signs: Vital signs: Vital Signs Temperature 98.5 F 03/29/22 15:51 Pulse Rate 76 03/29/22 17:57 Respiratory Rate 14 03/29/22 17:57 Blood Pressure 150/82 03/29/22 17:57 Pulse Oximetry 97 03/29/22 17:57 Oxygen Delivery Me thod 03/29/22 15:51 MDM - Head Injury Lab Data Radiology Impressions Cervical Spine CT 03/29/22 16:24 IMPRESSION: No acute findings. Face CT 03/29/22 16:24 IMPRESSION: No acute osseous abnormalities of the maxillofacial structures. Head CT 03/29/22 16:24 IMPRESSION: No acute intracranial abnormality. Discharge Plan Discharge Patient Disposition: Home Clinical Impression: Closed head injury Qualifiers: Encounter type: initial encounter Qualified Code(s): S09.90XA - Unspecified injury of head, initial encounter Facial hematoma Qualifiers: Encounter type: initial encounter Qualified Code(s): S00.83XA - Contusion of other part of head, initial encounter Condition: Stable Prescriptions: No Action warfarin 5 mg tablet See Rx Instructions PO DAILY Protocol: Dose Management Condition: Saturday Dose/Route: 5 mg Instruction: 1 x 5 mg tablet Condition: Saturday Dose/Route: 5 mg Instruction: 1 x 5 mg tablet Condition: Saturday Dose/Route: 7.5 mg Instruction: 1.5 x 5 mg tablets Condition: Saturday Dose/Route: 5 mg Instruction: 1 x 5 mg tablet Condition: Dose/Route: 5 mg Instruction: 1 x 5 mg tablet Condition: Saturday Dose/Route: 7.5 mg Instruction: 1.5 x 5 mg tablets Condition: Saturday Dose/Route: 5 mg Instruction: 1 x 5 mg tablet Protocol Text: Adjustment Start Date: 02/22/22 INR Value: 29.2 Seconds INR Date: 02/22/22 Recheck Date: 03/24/22 Rx Instructions: 5mg on Sat, , , Sat, Sun 7.5mg on , & Sat hydroxychloroquine 200 mg tablet 200 mg PO BID Qty: 60 3RF amlodipine 10 mg tablet 10 mg PO DAILY 90 Days Qty: 90 1RF fluticasone propionate [Flonase Allergy Relief] 50 mcg/actuation spray,suspension 1 spray intranasal BID Qty: 16 5RF Rx Instructions: administer into each nostril lisinopril 40 mg tablet 40 mg PO DAILY 90 Days Qty: 90 1RF metoprolol succinate 25 mg tablet extended release 24 hr 25 mg PO DAILY 90 Days Qty: 90 1RF omeprazole 40 mg capsule,delayed release(DR/EC) 40 mg PO BID 90 Days Qty: 180 1RF fluoxetine 20 mg capsule 20 mg PO DAILY 30 Days Qty: 30 1RF Hold Instructions: Home Medication placed on hold at Doctor's office tamsulosin [Flomax] 0.4 mg capsule 0.4 mg PO DAILY Qty: 60 0RF Hold Instructions: Home Medication placed on hold at Doctor's office Discharge Orders: Discharge ED (Routine); Ordered 03/29/22 Ordered By: Eva Ulrich Referrals: Giana Marie MD [Primary Care Provider] - Discharge Diet: Usual diet Discharge Activity: Increase activity as tolerated Patient Instructions: Head Injury (ED), Hematoma (ED) Activity Restrictions/Additional Instructions: [id number] Tylenol as needed for pain. Monitor closely for any worsening symptoms including, but not limited to, worsening head pain, confusion, weakness, visual disturbance. Return to the ER as needed for any new or worsening symptoms. Sign Out Sign Out Data: Patient Sign Out occurred on 03/30/22 at 06:45. Patient's care was discussed, and care was transferred from to Basilio Quintero DO. Coding Level of Care Code ED Wildlife Photographer for Chg Fwd Exam Expanded Problem Focused Documented by User: MITESH McdonaldP-Sarah 03/29/22 17:43 HPI - Head Injury General: Chief complaint: Head Injury Stated complaint: fall, head injury Time Seen by Provider: 03/29/22 16:07 History of Present Illness: Associated symptoms: Deny confusion, nausea or vomiting Review of Systems Const: Denies: fever(s) or chills ENMT: Reports: other (Large hematoma surrounding right orbit) Card: Denies: chest pain or palpitations Resp: Denies: dyspnea, productive cough or non-productive cough GI: Denies: abdominal pain, nausea or vomiting Neuro: Reports: headache(s) (Patient reports tolerable pain to her right orbit hematoma); Denies: numbness in extremities, sensory changes, lack of coordination, dizziness, confusion or Slurred speech present PFSH ED PFSH: Medical History Abdominal discomfort Allergic rhinitis Change in stool habits Chronic anticoagulation INR goal 2-3 Chronic neck pain Hx of basal cell carcinoma Hx pulmonary embolism Hypertension Nocturia more than twice per night Type 2 diabetes mellitus Diet managed Urinary hesitancy Surgical History Hx of cataract surgery Family History Other CAD (coronary artery disease) Cancer Diabetes Heart attack Hyperlipidemia Hypertension Rheumatoid arthritis Stroke Denies family history of Lupus Chronic kidney disease (CKD) Social History Smoking and tobacco status: never smoked Alcohol intake: current Alcohol intake frequency: few times a week History of recent travel: No Physical Exam Const: COMMON NORMALS: no acute distress, patient oriented x3 and alert HENMT: OTHER: Patient has large hematoma surrounding right orbit and above right eyebrow. This is slightly tender to palpation. EOMs within normal limits bilateral. Patient denies any visual disturbance. No subconjunctival hemorrhage noted to the eye. Resp: COMMON NORMALS: normal respiratory effort and No use of accessory muscles Neuro: COMMON NORMALS: patient oriented x3, CN's II-XII intact bilaterally, moves all extremities, no focal motor deficits and no sensory deficits noted SENSORIUM/ORIENTATION: Yes alert Course Vital Signs: Vital signs: Vital Signs Temperature 98.5 F 03/29/22 15:51 Pulse Rate 76 03/29/22 17:57 Respiratory Rate 14 03/29/22 17:57 Blood Pressure 150/82 03/29/22 17:57 Pulse Oximetry 97 03/29/22 17:57 Oxygen Delivery Me thod 03/29/22 15:51 MDM - Head Injury Medcial Decision Making Consider hematoma, long-term use of anticoagulants, intracranial bleed, fracture orbit CT cervical spine face and head?no acute findings. Patient reports he is up-to-date on tetanus vaccination Patient states his pain is tolerable and he just wanted to make sure he did not have a bleed in his brain given that he is on blood thinners. Patient request discharge to home. Discharge patient to home in stable condition. Discussed conservative care at home. Discussed monitoring for any changes in neurologic status, worsening symptoms. Lab Data Radiology Impressions Cervical Spine CT 03/29/22 16:24 IMPRESSION: No acute findings. Face CT 03/29/22 16:24 IMPRESSION: No acute osseous abnormalities of the maxillofacial structures. Head CT 03/29/22 16:24 IMPRESSION: No acute intracranial abnormality. Discharge Plan Discharge Patient Disposition: Home Clinical Impression: Closed head injury Qualifiers: Encounter type: initial encounter Qualified Code(s): S09.90XA - Unspecified injury of head, initial encounter Facial hematoma Qualifiers: Encounter type: initial encounter Qualified Code(s): S00.83XA - Contusion of other part of head, initial encounter Condition: Stable Prescriptions: No Action warfarin 5 mg tablet See Rx Instructions PO DAILY Protocol: Dose Management Condition: Saturday Dose/Route: 5 mg Instruction: 1 x 5 mg tablet Condition: Saturday Dose/Route: 5 mg Instruction: 1 x 5 mg tablet Condition: Saturday Dose/Route: 7.5 mg Instruction: 1.5 x 5 mg tablets Condition: Saturday Dose/Route: 5 mg Instruction: 1 x 5 mg tablet Condition: Dose/Route: 5 mg Instruction: 1 x 5 mg tablet Condition: Saturday Dose/Route: 7.5 mg Instruction: 1.5 x 5 mg tablets Condition: Saturday Dose/Route: 5 mg Instruction: 1 x 5 mg tablet Protocol Text: Adjustment Start Date: 02/22/22 INR Value: 29.2 Seconds INR Date: 02/22/22 Recheck Date: 03/24/22 Rx Instructions: 5mg on Sat, , , Sat, Sun 7.5mg on , & Sat hydroxychloroquine 200 mg tablet 200 mg PO BID Qty: 60 3RF amlodipine 10 mg tablet 10 mg PO DAILY 90 Days Qty: 90 1RF fluticasone propionate [Flonase Allergy Relief] 50 mcg/actuation spray,suspension 1 spray intranasal BID Qty: 16 5RF Rx Instructions: administer into each nostril lisinopril 40 mg tablet 40 mg PO DAILY 90 Days Qty: 90 1RF metoprolol succinate 25 mg tablet extended release 24 hr 25 mg PO DAILY 90 Days Qty: 90 1RF omeprazole 40 mg capsule,delayed release(DR/EC) 40 mg PO BID 90 Days Qty: 180 1RF fluoxetine 20 mg capsule 20 mg PO DAILY 30 Days Qty: 30 1RF Hold Instructions: Home Medication placed on hold at Doctor's office tamsulosin [Flomax] 0.4 mg capsule 0.4 mg PO DAILY Qty: 60 0RF Hold Instructions: Home Medication placed on hold at Doctor's office Discharge Orders: Discharge ED (Routine); Ordered 03/29/22 Ordered By: Eva Ulrich Referrals: Giana Marie MD [Primary Care Provider] - Discharge Diet: Usual diet Discharge Activity: Increase activity as tolerated Patient Instructions: Head Injury (ED), Hematoma (ED) Activity Restrictions/Additional Instructions: [id number] Tylenol as needed for pain. Monitor closely for any worsening symptoms including, but not limited to, worsening head pain, confusion, weakness, visual disturbance. Return to the ER as needed for any new or worsening symptoms. Sign Out Sign Out Data: Patient Sign Out occurred on 03/30/22 at 06:45. Patient's care was discussed, and care was transferred from to Basilio Quintero DO. Coding Level of Care Code ED Wildlife Photographer for Chg Fwd Exam Expanded Problem Focused Documented by User: Basilio Quintero DO 03/30/22 06:47 HPI - Head Injury General: Chief complaint: Head Injury Stated complaint: fall, head injury Time Seen by Provider: 03/29/22 16:07 PFSH ED PFSH: Medical History Abdominal discomfort Allergic rhinitis Change in stool habits Chronic anticoagulation INR goal 2-3 Chronic neck pain Hx of basal cell carcinoma Hx pulmonary embolism Hypertension Nocturia more than twice per night Type 2 diabetes mellitus Diet managed Urinary hesitancy Surgical History Hx of cataract surgery Family History Other CAD (coronary artery disease) Cancer Diabetes Heart attack Hyperlipidemia Hypertension Rheumatoid arthritis Stroke Denies family history of Lupus Chronic kidney disease (CKD) Social History Smoking and tobacco status: never smoked Alcohol intake: current Alcohol intake frequency: few times a week History of recent travel: No Course Vital Signs: Vital signs: Vital Signs Temperature 98.5 F 03/29/22 15:51 Pulse Rate 76 03/29/22 17:57 Respiratory Rate 14 03/29/22 17:57 Blood Pressure 150/82 03/29/22 17:57 Pulse Oximetry 97 03/29/22 17:57 Oxygen Delivery Me thod 03/29/22 15:51 MDM - Head Injury Medcial Decision Making Consider hematoma, long-term use of anticoagulants, intracranial bleed, fracture orbit CT cervical spine face and head?no acute findings. Patient reports he is up-to-date on tetanus vaccination Patient states his pain is tolerable and he just wanted to make sure he did not have a bleed in his brain given that he is on blood thinners. Patient request discharge to home. Discharge patient to home in stable condition. Discussed conservative care at home. Discussed monitoring for any changes in neurologic status, worsening symptoms. Chart reviewed and patient discussed with midlevel. Agree with assessment and plan. Lab Data Radiology Impressions Cervical Spine CT 03/29/22 16:24 IMPRESSION: No acute findings. Face CT 03/29/22 16:24 IMPRESSION: No acute osseous abnormalities of the maxillofacial structures. Head CT 03/29/22 16:24 IMPRESSION: No acute intracranial abnormality. Discharge Plan Discharge Patient Disposition: Home Clinical Impression: Closed head injury Qualifiers: Encounter type: initial encounter Qualified Code(s): S09.90XA - Unspecified injury of head, initial encounter Facial hematoma Qualifiers: Encounter type: initial encounter Qualified Code(s): S00.83XA - Contusion of other part of head, initial encounter Condition: Stable Prescriptions: No Action warfarin 5 mg tablet See Rx Instructions PO DAILY Protocol: Dose Management Condition: Saturday Dose/Route: 5 mg Instruction: 1 x 5 mg tablet Condition: Saturday Dose/Route: 5 mg Instruction: 1 x 5 mg tablet Condition: Saturday Dose/Route: 7.5 mg Instruction: 1.5 x 5 mg tablets Condition: Saturday Dose/Route: 5 mg Instruction: 1 x 5 mg tablet Condition: Dose/Route: 5 mg Instruction: 1 x 5 mg tablet Condition: Saturday Dose/Route: 7.5 mg Instruction: 1.5 x 5 mg tablets Condition: Saturday Dose/Route: 5 mg Instruction: 1 x 5 mg tablet Protocol Text: Adjustment Start Date: 02/22/22 INR Value: 29.2 Seconds INR Date: 02/22/22 Recheck Date: 03/24/22 Rx Instructions: 5mg on Sat, , , Sat, Sun 7.5mg on , & Sat hydroxychloroquine 200 mg tablet 200 mg PO BID Qty: 60 3RF amlodipine 10 mg tablet 10 mg PO DAILY 90 Days Qty: 90 1RF fluticasone propionate [Flonase Allergy Relief] 50 mcg/actuation spray,suspension 1 spray intranasal BID Qty: 16 5RF Rx Instructions: administer into each nostril lisinopril 40 mg tablet 40 mg PO DAILY 90 Days Qty: 90 1RF metoprolol succinate 25 mg tablet extended release 24 hr 25 mg PO DAILY 90 Days Qty: 90 1RF omeprazole 40 mg capsule,delayed release(DR/EC) 40 mg PO BID 90 Days Qty: 180 1RF fluoxetine 20 mg capsule 20 mg PO DAILY 30 Days Qty: 30 1RF Hold Instructions: Home Medication placed on hold at Doctor's office tamsulosin [Flomax] 0.4 mg capsule 0.4 mg PO DAILY Qty: 60 0RF Hold Instructions: Home Medication placed on hold at Doctor's office Discharge Orders: Discharge ED (Routine); Ordered 03/29/22 Ordered By: Eva Ulrich Referrals: Giana Marie MD [Primary Care Provider] - Discharge Diet: Usual diet Discharge Activity: Increase activity as tolerated Patient Instructions: Head Injury (ED), Hematoma (ED) Activity Restrictions/Additional Instructions: [id number] Tylenol as needed for pain. Monitor closely for any worsening symptoms including, but not limited to, worsening head pain, confusion, weakness, visual disturbance. Return to the ER as needed for any new or worsening symptoms. Sign Out Sign Out Data: Patient Sign Out occurred on 03/30/22 at 06:45. Patient's care was discussed, and care was transferred from to Basilio Quintero DO. Coding Level of Care Code ED Wildlife Photographer for Chg Fwd Exam Expanded Problem Focused
[2022-03-29 17:57] VITALS: BP 150/82; PULSE 76; RESP 14; O2SAT 97
== END 2022-03-29 17:54 | disposition home or self-care (01) ==
PROVIDERS: Emergency Provider Family Medicine; PCP Family Medicine
DX: S09.8XXA Other specified injuries of head, initial encounter (principal); S00.83XA Contusion of other part of head, initial encounter; I10 Essential (primary) hypertension; E11.9 Type 2 diabetes mellitus without complications; W01.0XXA Fall on same level from slipping, tripping and stumbling without subsequent striking against object, initial encounter; Z79.01 Long term (current) use of anticoagulants
CPT/HCPCS: 70450; 70486; 72125; 99284

== ENCOUNTER → 2022-04-26 09:47 | Outpatient (BNVA) | payer MEDICARE, SELFPAY | PROVIDERS: PCP Family Medicine; Visit Provider Emergency Medicine | DX: I35.0 Nonrheumatic aortic (valve) stenosis (principal) | CPT/HCPCS: 85610 ==

== ENCOUNTER → 2022-05-23 12:25 | Outpatient (BNVA) | payer MEDICARE, SELFPAY | PROVIDERS: PCP Family Medicine; Visit Provider Emergency Medicine | DX: I35.0 Nonrheumatic aortic (valve) stenosis (principal) | CPT/HCPCS: 85610 ==

== ENCOUNTER → 2022-05-31 10:49 | Outpatient (BNVA) | payer MEDICARE, SELFPAY | PROVIDERS: PCP Family Medicine; Visit Provider Internal Medicine | DX: M35.0C Sjogren syndrome with dental involvement (principal); M54.2 Cervicalgia; G89.29 Other chronic pain | CPT/HCPCS: 99213 ==

== ENCOUNTER 2022-06-02 07:39 | Emergency (ER) | payer MEDICARE, SELFPAY ==
[2022-06-02] VITALS (7 sets, daily range): BP systolic 133–157; BP diastolic 88–106; PULSE 106–121; RESP 13–19; TEMP 36.3; O2SAT 95–100
--- NOTE | 2022-06-02 07:40 | ED_ITS ---
HPI - Fall General: Chief Complaint: Fall Stated Complaint: RIB PAIN S/P FALL Time Seen by Provider: 06/02/22 07:40 History of Present Illness: Mr. Hernandez is a 86-year-old gentleman with history of diabetes, balance impairment, valvular heart disease, history of pulmonary embolism on chronic anticoagulation with warfarin presenting to the emergency department due to fall with loss of consciousness. He reports being out of his baseline health the past few days. He got up and felt okay and was in the kitchen starting the cushion mat maker when he had onset of lightheadedness and presyncopal type feeling. He must have walked the hallway however does not recall this and woke up on the ground. Currently endorses some left-sided head pain and left-sided rib/abdominal pain. Intensity symptoms moderate. Worse with palpation and movement. No other specific changes in health, exacerbating, or alleviating factors identified. Onset (ago): minute(s) Fall from: standing Place fall occurred: home Loss of consciousness: Yes Prolonged down time: no Symptoms prior to fall: lightheadedness Location of injury: head, chest and abdomen Severity: moderate Quality: sharp and aching Review of Systems General: Reports: 10 or more systems reviewed and unremarkable except in HPI and below PFSH ED PFSH: Medical History Abdominal discomfort Allergic rhinitis Change in stool habits Chronic anticoagulation INR goal 2-3 Chronic neck pain Hx of basal cell carcinoma Hx pulmonary embolism Hypertension Impairment of balance Left inguinal hernia Nocturia more than twice per night Sleeplessness Type 2 diabetes mellitus Diet managed Urinary hesitancy Surgical History Hx of cataract surgery Family History Other CAD (coronary artery disease) Cancer Diabetes Heart attack Hyperlipidemia Hypertension Rheumatoid arthritis Stroke Denies family history of Lupus Chronic kidney disease (CKD) Social History Smoking and tobacco status: never smoked Alcohol intake: current Alcohol intake frequency: few times a week Physical Exam Const: COMMON NORMALS: alert GENERAL APPEARANCE: cooperative and well developed HENMT: COMMON NORMALS: normocephalic HEAD & SCALP: normocephalic THROAT: posterior oropharynx normal OTHER: Contusion with small skin tear to left anterior temporal region. No hurtado signs or raccoon eyes. No hemotympanum. No otorrhea or rhinorrhea. Jaw alignment normal. Dentition baseline. No obvious bony step-offs. No septal hematoma. No evidence of ocular entrapment. Eye: COMMON NORMALS: conjunctivae normal CONJUNCTIVA: Yes conjunctivae normal SCLERA: sclerae normal Neck/C-Spine: COMMON NORMALS: supple GENERAL: Yes trachea midline CERVICAL SPINE: No Cervical spine tenderness Chest: OTHER: Left anterior lateral chest wall tenderness palpation without obvious deformity or crepitus Resp: COMMON NORMALS: clear to auscultation bilaterally EFFORT & INSP ECTION: Yes able to speak in complete sentences AUSCULTATION: clear to auscultation bilaterally Cardio: COMMON NORMALS: regular rate and regular rhythm RATE: regular rate RHYTHM: regular rhythm GI: COMMON NORMALS: Soft to palpation PALPATION: Yes Soft to palpation, Yes Tenderness to palpation present (GI) Details: LUQ, No Guarding due to palpation present (GI) and No Rigid due to palpation Back/Pelvis: COMMON NORMALS: no thoracic nor lumbar tenderness Extremity: GENERAL: Yes normal exam except as noted and No edema Neuro: COMMON NORMALS: moves all extremities SENSORIUM/ORIENTATION: Yes alert and No Orientation impaired Psych: COMMON NORMALS: mental status grossly normal and Normal thought process present THOUGHT PROCESS: Normal thought process present Skin: NARRATIVE SKIN EXAM: Skin tears bilateral upper extremities, contusions to bilateral upper extremities more prominent on the right than left Course Vital Signs: Vital signs: Vital Signs Temperature 97.3 F L 06/02/22 07:42 Pulse Rate 119 H 06/02/22 09:00 Respiratory Rate 16 06/02/22 09:08 Blood Pressure 142/100 06/02/22 09:00 Pulse Oximetry 98 06/02/22 09:08 Oxygen Delivery Me thod 06/02/22 08:38 MDM - Fall Medical Decision Making 86-year-old gentleman with history of anticoagulation for pulmonary embolism presenting to the emergency department due to fall. Patient does have history of falls. Patient had head strike and positive loss of consciousness. Otherwise reports some left-sided rib and abdominal pain. Skin tears without active hemorrhage requiring intervention. Neuro intact. Head to toe exam performed EKG notable for atrial fibrillation which may be new for patient, no STEMI Labs with no leukocytosis, normocytic anemia, normal platelet count. Anemia similar to prior. Electrolyte panel without significant derangement of electrolytes. BUN is elevated however creatinine is within normal range. Initial troponin elevated with repeat pending, no recent comparison. INR 2.46. CT head imaging notable for intraparenchymal hemorrhage. Given elevated INR and use of warfarin as well as intraparenchymal hemorrhage with potential worsening I believe that Kcentra is appropriate for reversal of anticoagulation. Discussed with patient and patient's family. Patient requires evaluation by neurosurgery which we do not have at our facility. Patient accepted as a trauma transfer to [facility] ER and given traumatic injury parenchymal hemorrhage requires expedient transfer for further evaluation. Medical Records I reviewed the patient's medical records. Lab Data I reviewed the patient's lab results. 06/02/22 07:50 06/02/22 07:50 Radiology Impressions Cervical Spine CT 06/02/22 07:44 IMPRESSION: 1. No acute cervical spine pathology. 2. Increased density seen within the right sphenoid sinus most likely represents inspissated secretions. Hemorrhage and or fungal sinusitis could give a similar appearance. Chest/Abdomen/Pelvis CT 06/02/22 07:44 IMPRESSION: 1. Acute nondisplaced left anterolateral 4th through 6th rib fractures. 2. No sign of significant intrathoracic injury. 3. Incidental findings above. IMPRESSION: 1. No sign of acute traumatic injury in the abdomen or pelvis. 2. 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 3. Incidental findings above. COMMENTS: Consistent with the [employer]'s Incidental Findings Committee white paper (J Am Zia Radiol 2018): Any incidental renal lesion less than 1 cm or classified as too small to characterize, or any incidental cystic renal lesion characterized as simple-appearing, is likely benign. No follow-up imaging is recommended for these lesions per consensus recommendations based on imaging criteria. Head CT 06/02/22 07:44 IMPRESSION: Two Intraparenchymal hematomas anteriorly within the left frontal lobe measures 1.3 x 1.2 x 1.6 cm and 1.8 x 0.9 x 1.5 cm. Both have a small amount of adjacent edema. ADDENDUM: 06/02/22 0829 THIS REPORT CONTAINS FINDINGS THAT MAY BE CRITICAL TO PATIENT CARE. 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 The findings were acknowledged and understood. Laboratory Results WBC 8.7 10^3/uL (4.0-10.0) 06/02/22 07:50 RBC 4.02 10^6/uL (4.1-5.3) L 06/02/22 07:50 Hgb 10.6 g/dL (11.7-16.6) L 06/02/22 07:50 Hct 34.1 % (42.0-52.0) L 06/02/22 07:50 MCV 84.8 fl (80-94) 06/02/22 07:50 MCH 26.4 pg (28.0-34.0) L 06/02/22 07:50 MCHC 31.1 g/dL (30.0-36.0) 06/02/22 07:50 RDW 14.4 % (12.1-15.1) 06/02/22 07:50 Plt Count 311 10^3/cmm (130-400) 06/02/22 07:50 MPV 10.0 fL (7.4-10.4) 06/02/22 07:50 Neut % (Auto) 76.2 % 06/02/22 07:50 Lymph % (Auto) 15.1 % 06/02/22 07:50 [place] % (Auto) 8.1 % 06/02/22 07:50 Eos % (Auto) 0.2 % 06/02/22 07:50 Baso % (Auto) 0.1 % 06/02/22 07:50 Neut # (Auto) 6.62 10^3/uL (1.8-7.7) 06/02/22 07:50 Lymph # (Auto) 1.3 10^3/uL (0.8-4.8) 06/02/22 07:50 [place] # (Auto) 0.7 10^3/uL (0.2-0.9) 06/02/22 07:50 Eos # (Auto) 0.0 10^3/uL (0.0-0.8) 06/02/22 07:50 Baso # (Auto) 0.0 10^3/uL (0.0-0.1) 06/02/22 07:50 Nucleated RBC % (auto) 0 % 06/02/22 07:50 Nucleated RBCs # 0.0 /100WBC 06/02/22 07:50 PT 27.60 SECONDS (12.1-14.9) H 06/02/22 07:50 INR 2.46 (0.8-1.2) H 06/02/22 07:50 Sodium 136 mmol/L (136-145) 06/02/22 07:50 Potassium 4.5 mmol/L (3.5-5.1) 06/02/22 07:50 Chloride 102 mmol/L (98-107) 06/02/22 07:50 Carbon Dioxide 22 mmol/L (22-29) 06/02/22 07:50 Anion Gap 16.5 (5-19) 06/02/22 07:50 BUN 29 mg/dL (8-23) H 06/02/22 07:50 Creatinine 1.2 mg/dL (0.7-1.2) 06/02/22 07:50 GFR Calculation Not Reportable 06/02/22 07:50 Glucose 125 mg/dL (65-115) H 06/02/22 07:50 Calculated Osmolality 289 mOsm/kg (285-295) 06/02/22 07:50 Calcium 8.7 mg/dL (8.5-10.5) 06/02/22 07:50 Total Bilirubin 0.2 mg/dL (0.15-1.2) 06/02/22 07:50 AST 23 U/L (0-40) 06/02/22 07:50 ALT 15 U/L (0-41) 06/02/22 07:50 Alkaline Phosphatase 100 U/L (40-130) 06/02/22 07:50 Troponin T Baseline 26 ng/L (0-15) H 06/02/22 07:50 Total Protein 8.5 g/dL (6.6-8.7) 06/02/22 07:50 Albumin 3.7 g/dL (3.5-5.2) 06/02/22 07:50 Globulin 4.8 g/dL (1.3-4.6) H 06/02/22 07:50 Discharge Plan Discharge Patient Disposition: Transfer to ED Clinical Impression: Traumatic cerebral intraparenchymal hemorrhage, Chronic anticoagulation, Atrial fibrillation, new onset, Atrial fibrillation with RVR, Chronic anemia, Multiple fractures of ribs of left side Condition: Stable Prescriptions: No Action warfarin 5 mg tablet See Rx Instructions PO DAILY Protocol: Dose Management Condition: Saturday Dose/Route: 5 mg Instruction: 1 x 5 mg tablet Condition: Saturday Dose/Route: 5 mg Instruction: 1 x 5 mg tablet Condition: Saturday Dose/Route: 7.5 mg Instruction: 1.5 x 5 mg tablets Condition: Saturday Dose/Route: 5 mg Instruction: 1 x 5 mg tablet Condition: Dose/Route: 5 mg Instruction: 1 x 5 mg tablet Condition: Saturday Dose/Route: 7.5 mg Instruction: 1.5 x 5 mg tablets Condition: Saturday Dose/Route: 5 mg Instruction: 1 x 5 mg tablet Protocol Text: Adjustment Start Date: Saturday05/23/22 INR Value: 31.50 SECONDS INR Date: 05/23/22 Recheck Date: 06/22/22 Rx Instructions: 5mg on Sat, , , Sat, Sun 7.5mg on , & Sat fluticasone propionate [Flonase Allergy Relief] 50 mcg/actuation spray,s uspension 1 spray intranasal BID Qty: 16 5RF Rx Instructions: administer into each nostril lisinopril 40 mg tablet 40 mg PO DAILY 90 Days Qty: 90 1RF metoprolol succinate 25 mg tablet extended release 24 hr 25 mg PO DAILY 90 Days Qty: 90 1RF omeprazole 40 mg capsule,delayed release(DR/EC) 40 mg PO BID 90 Days Qty: 180 1RF hydroxychloroquine 200 mg tablet 200 mg PO BID Qty: 60 3RF amoxicillin 500 mg tablet 500 mg PO BID 10 Days Qty: 20 0RF [id number] [Bromfed DM] 2-30-10 mg/5 mL syrup 5 ml PO Q6H PRN (Reason: cold symptoms) Qty: 118 0RF fluoxetine 20 mg capsule 20 mg PO DAILY 30 Days Qty: 30 1RF Hold Instructions: Home Medication placed on hold at Doctor's office tamsulosin [Flomax] 0.4 mg capsule 0.4 mg PO DAILY Qty: 60 0RF Hold Instructions: Home Medication placed on hold at Doctor's office (DME) Contour Next Test Strips Strip See Rx Instructions .Route Qty: 50 11RF Rx Instructions: use to test blood sugar once daily amlodipine 10 mg tablet See Rx Instructions .ROUTE .COMPLEX Qty: 30 0RF Dose Instruction: TAKE ONE TABLET BY MOUTH DAILY Rx Instructions: TAKE ONE TABLET BY MOUTH DAILY Referrals: Giana Marie MD [Primary Care Provider] - Coding Level of Care Code ED Military Source Operations Officer for Joseg Ruy
--- NOTE | 2022-06-02 07:44 | CTR_ITS ---
PROCEDURE INFORMATION: Exam: CT Head Without Contrast Exam date and time: 06/02/2022 8:08 AM Age: 86 years old Clinical indication: Injury or trauma; Fall; Blunt trauma (contusions or hematomas); With loss of consciousness; Loss of consciousness 31-59 minutes; Additional info: Fall on warfarin, loc TECHNIQUE: Imaging protocol: Computed tomography of the head without contrast. Total images: 2 Radiation optimization: All CT scans at this facility use at least one of these dose optimization techniques: automated exposure control; mA and/or kV adjustment per patient size (includes targeted exams where dose is matched to clinical indication); or iterative reconstruction. Other protocol: This patient has received 3 known CTs and 0 known cardiac nuclear medicine studies in the 12 months prior to the current study. COMPARISON: CT head wo con* [id number] 03/29/2022 4:37 PM RADIATION DOSE METRICS: Total DLP (mGy-cm): 1240.87 FINDINGS: Brain: Two Intraparenchymal hematomas anteriorly within the left frontal lobe measures 1.3 x 1.2 x 1.6 cm and 1.8 x 0.9 x 1.5 cm. Both have a small amount of adjacent edema. Global brain atrophy and chronic white matter ischemic changes are present. Cerebral ventricles: Ventricles are appropriate in size for degree of atrophy. Paranasal sinuses: Mild mucosal thickening of the paranasal sinuses. Mastoid air cells: Visualized mastoid air cells are well aerated. Bones/joints: Unremarkable. No acute fracture. Soft tissues: Unremarkable. CT/CT head wo con* [id number] IMPRESSION: Two Intraparenchymal hematomas anteriorly within the left frontal lobe measures 1.3 x 1.2 x 1.6 cm and 1.8 x 0.9 x 1.5 cm. Both have a small amount of adjacent edema.
--- NOTE | 2022-06-02 07:44 | CTR_ITS ---
PROCEDURE INFORMATION: Exam: CT Cervical Spine Without Contrast Exam date and time: 06/02/2022 8:08 AM Age: 86 years old Clinical indication: Injury or trauma; Fall; Blunt trauma; Additional info: Fall on warfarin, loc TECHNIQUE: Imaging protocol: Computed tomography of the cervical spine without contrast. Total images: 1 Radiation optimization: All CT scans at this facility use at least one of these dose optimization techniques: automated exposure control; mA and/or kV adjustment per patient size (includes targeted exams where dose is matched to clinical indication); or iterative reconstruction. Other protocol: This patient has received 5 known CTs and 0 known cardiac nuclear medicine studies in the 12 months prior to the current study. COMPARISON: CT cervical spin wo con* [id number] 03/29/2022 4:40 PM RADIATION DOSE METRICS: Total DLP (mGy-cm): 196.7 FINDINGS: Bones/joints: Facet joint degenerative changes are present. C2-4 and C5-7 degenerative disc disease with disc space narrowing and osteophyte formation. Uncovertebral joint degeneration is present. Paranasal sinuses: Mild mucosal thickening of the paranasal sinuses. Increased density seen within the right sphenoid sinus most likely represents inspissated secretions. Hemorrhage and or fungal sinusitis could give a similar appearance. Lungs: Benign granulomatous disease of the lung is noted. Vasculature: Moderate atherosclerotic disease is evident. Calcified atherosclerotic plaque is noted at the carotid bifurcations bilaterally. Soft tissues: Unremarkable. Other findings: Streak artifact from dental amalgam. CT/CT cervical spin wo con* [id number] IMPRESSION: 1. No acute cervical spine pathology. 2. Increased density seen within the right sphenoid sinus most likely represents inspissated secretions. Hemorrhage and or fungal sinusitis could give a similar appearance.
--- NOTE | 2022-06-02 07:44 | CTR_ITS ---
PROCEDURE INFORMATION: Exam: CT Chest Without Contrast; Diagnostic Exam date and time: 06/02/2022 8:15 AM Age: 86 years old Clinical indication: Injury or trauma; Fall; Generalized; Blunt trauma (contusions or hematomas); Additional info: Fall on warfarin, L sided rib/abd pain TECHNIQUE: Imaging protocol: Diagnostic computed tomography of the chest without contrast. Radiation optimization: All CT scans at this facility use at least one of these dose optimization techniques: automated exposure control; mA and/or kV adjustment per patient size (includes targeted exams where dose is matched to clinical indication); or iterative reconstruction. Other protocol: This patient has received 5 known CTs and 0 known cardiac nuclear medicine studies in the 12 months prior to the current study. COMPARISON: CR XR chest 1V portable [id number] 12/22/2021 9:42 AM RADIATION DOSE METRICS: Total DLP (mGy-cm): 658.19 FINDINGS: Lungs: There are scattered calcified granulomas in both lungs. There is subsegmental atelectasis in the lung bases. There is no consolidation. Pleural spaces: There is no pleural effusion or pneumothorax. Heart: There is mild cardiac enlargement. There is no pericardial effusion. Coronary arteries: There is severe coronary artery calcification. Mediastinal space: No mediastinal hematoma. Lymph nodes: There is no mediastinal or hilar lymphadenopathy. Vasculature: There is moderate aortic atherosclerotic disease. Bones/joints: There are chronic fractures of the posterior and posteromedial left 10th and 11th ribs. There are acute nondisplaced fractures of the left anterolateral 4th through 6th ribs. There is a healed fracture of the right distal clavicle. No acute fracture in the clavicles, shoulders, scapulae, sternum or spine. Soft tissues: The extrathoracic soft tissues are unremarkable. PROCEDURE INFORMATION: Exam: CT Abdomen And Pelvis Without Contrast Exam date and time: 06/02/2022 8:15 AM Age: 86 years old Clinical indication: Injury or trauma; Fall; Generalized; Blunt trauma (contusions or hematomas); Additional info: Fall on warfarin, L sided rib/abd pain TECHNIQUE: Imaging protocol: Computed tomography of the abdomen and pelvis without contrast. Radiation optimization: All CT scans at this facility use at least one of these dose optimization techniques: automated exposure control; mA and/or kV adjustment per patient size (includes targeted exams where dose is matched to clinical indication); or iterative reconstruction. Other protocol: This patient has received 5 known CTs and 0 known cardiac nuclear medicine studies in the 12 months prior to the current study. COMPARISON: NM hepatobiliary w phar* [id number] 03/07/2022 10:00 AM RADIATION DOSE METRICS: Total DLP (mGy-cm): 658.19 FINDINGS: Liver: There is a simple cyst in the liver. Gallbladder and bile ducts: The gallbladder is normal. There is no biliary dilation. Pancreas: The pancreas is unremarkable. Spleen: The spleen is unremarkable. Adrenal glands: The adrenal glands are unremarkable. Kidneys and ureters: There is a simple cyst in the right kidney. There is a 3 mm nonobstructive stone in the right upper pole collecting system. There is no hydronephrosis or ureteral dilation. There is a solitary nonobstructive 2 mm stone in the left lower pole collecting system. No hydronephrosis. Stomach and bowel: The stomach is decompressed, preventing meaningful evaluation of wall thickness. There is a non-inflamed diverticulum in the proximal duodenum. The small bowel is nondilated. There is moderate distal descending and sigmoid colonic diverticulosis without evidence of diverticulitis. Appendix: The appendix is normal. Intraperitoneal space: There is no free air or significant intraperitoneal free fluid. Vasculature: There is moderate aortic atherosclerotic disease. Lymph nodes: There is no lymphadenopathy in the retroperitoneum, mesentery, pelvis or inguinal regions. Urinary bladder: The urinary bladder is unremarkable. Reproductive: There is nonspecific moderate enlargement of the prostate gland. Bones/joints: There are chronic bilateral L5 pars defects with grade 2 anterolisthesis of L5 on S1. The pelvis and hips are unremarkable. No acute fracture. Soft tissues: There is a small fat containing right inguinal hernia. Moderate size left inguinal hernia containing nondistended sigmoid colon. There is a small fat containing umbilical hernia. There is laxity of the pelvic floor. CT/[place] [id number] IMPRESSION: 1. Acute nondisplaced left anterolateral 4th through 6th rib fractures. 2. No sign of significant intrathoracic injury. 3. Incidental findings above. IMPRESSION: 1. No sign of acute traumatic injury in the abdomen or pelvis. 2. 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 3. Incidental findings above. COMMENTS: Consistent with the [employer]'s Incidental Findings Committee white paper (J Am Zia Radiol 2018): Any incidental renal lesion less than 1 cm or classified as too small to characterize, or any incidental cystic renal lesion characterized as simple-appearing, is likely benign. No follow-up imaging is recommended for these lesions per consensus recommendations based on imaging criteria.
--- NOTE | 2022-06-02 07:45 | ECG_ITS ---
[facility] Test Date: 2022-06-02 Pat Name: Moiz Hernandez Department: Room: Gender: Male Director Client: : [id number] Requested By: Michael Connolly Order Number: [id number] [place] MD: Chidi Aguilar M.D. Measurements Intervals [place] Rate: 114 P: 0 WI: 0 QRS: 46 QRSD: 88 T: 42 QT: 326 QTc: 450 Interpretive Statements ATRIAL FIBRILLATION WITH RAPID VENTRICULAR RESPONSE MODERATE ST DEPRESSION [0.05+ mV ST DEPRESSION] No previous ECG available for comparison Electronically Signed On 06-02-2022 8:37:13 [employer]OKER[employer] AGENT by Chidi Aguilar M.D. [id number]
--- NOTE | 2022-06-02 07:57 | PC.NURSE ---
Patient has a moderate skin tear on his R upper arm, small skin tear on L forearm and a hematomy on his L forehead.
[2022-06-02 08:01] LABS: Basophils % 0.1 %; Eosinophils % 0.2 %; Hematocrit 34.1 % (42.0-52.0); Hemoglobin 10.6 g/dL (11.7-16.6); Lymphocytes # 1.3 10^3/uL (0.8-4.8); Lymphocytes % 15.1 %; Mean Corpuscular HGB Conc 31.1 g/dL (30.0-36.0); Mean Corpuscular Hemoglobin 26.4 pg (28.0-34.0); Mean Corpuscular Volume 84.8 fl (80-94); Monocytes # 0.7 10^3/uL (0.2-0.9); Monocytes % 8.1 %; Neutrophils # 6.62 10^3/uL (1.8-7.7); Neutrophils % 76.2 %; Nucleated Red Blood Cells % 0 %; Platelet Count 311 10^3/cmm (130-400); Red Blood Count 4.02 10^6/uL (4.1-5.3); Red Cell Distribution Width 14.4 % (12.1-15.1); White Blood Count 8.7 10^3/uL (4.0-10.0)
[2022-06-02 08:25] LABS: Alanine Aminotransferase 15 U/L (0-41); Albumin Level 3.7 g/dL (3.5-5.2); Alkaline Phosphatase 100 U/L (40-130); Anion Gap 16.5 (5-19); Aspartate Amino Transferase 23 U/L (0-40); Blood Urea Nitrogen 29 mg/dL (8-23); Calcium 8.7 mg/dL (8.5-10.5); Carbon Dioxide 22 mmol/L (22-29); Chloride 102 mmol/L (98-107); Globulin 4.8 g/dL (1.3-4.6); Glucose 125 mg/dL (65-115); Osmolality Calculated 289 mOsm/kg (285-295); Potassium 4.5 mmol/L (3.5-5.1); Sodium 136 mmol/L (136-145); Total Bilirubin 0.2 mg/dL (0.15-1.2); Total Protein 8.5 g/dL (6.6-8.7)
[2022-06-02 08:26] LABS: INR 2.46 (0.8-1.2); Troponin(5th) Baseline 26 ng/L (0-15)
[2022-06-02] MEDS: phytonadione (ADULT) 5 MG in sodium chloride 0.9% 50 ML 151.5 MG IV (08:36)
[2022-06-02] MEDS: tetanus-dipt-pertussis 0.5 mL SDV IM (08:42)
[2022-06-02] MEDS: metoprolol tartrate 1 mg/1 mL SDV 5 mL 2.5 MG IVP ×2 (08:49→09:20)
[2022-06-02] MEDS: fentaNYL 50 mcg/mL INJ 2mL 25 MCG IVP (09:08)
--- NOTE | 2022-06-02 09:25 | PC.NURSE ---
Used one ABD pad to cover the patient's skin tear on his R upper arm.
[2022-06-02] MEDS: hum prothrombin cplx(pcc)4fact 1,000 UNIT, hum prothrombin cplx(pcc)4fact 500 UNIT in e... 400 UNIT IV (09:30)
== END 2022-06-02 09:28 ==
PROVIDERS: Emergency Provider Emergency Medicine; PCP Family Medicine
DX: S06.2X9A Diffuse traumatic brain injury with loss of consciousness of unspecified duration, initial encounter (principal); Z79.01 Long term (current) use of anticoagulants; I48.20 Chronic atrial fibrillation, unspecified; D64.89 Other specified anemias; S22.42XA Multiple fractures of ribs, left side, initial encounter for closed fracture; W18.39XA Other fall on same level, initial encounter; I10 Essential (primary) hypertension; E11.9 Type 2 diabetes mellitus without complications; Z23 Encounter for immunization
CPT/HCPCS: 70450; 71250; 72125; 74176; 80053; 84484; 85025; 85610; 90471; 90715; 93005; 96365; 96375; 96376; 99285; J3010; J3430; J3490; J7168

== ENCOUNTER 2022-07-02 11:05 | Outpatient (CLI) | payer MEDICARE, SELFPAY ==
--- NOTE | 2022-07-02 11:25 | CT_ITS ---
WS: [id number] CT HEAD TECHNIQUE: Noncontrast CT of the head obtained from the skullbase to the vertex. CLINICAL INFORMATION: TRAUMATIC HEMORRHAGE OF CEREBRUM W/LOSS OF CONSCIOUSNESS COMPARISON: CT June 02, 2022 DLP: 1041.[address] scans at [facility] use at least one of these dose optimization techniques: automated e xposure control; mA and/or kV adjustment per patient size (includes targeted exams where dose is matc hed to clinical indication); or iterative reconstruction. FINDINGS: Previously described intraparenchymal hemorrhage in the LEFT frontal lobe has essentially resolved si nce June 02, 2022. Small amount of associated encephalomalacia. No evidence of new or progressive hemorrhage. Moderate to advanced small vessel changes. Moderate parenchymal volume loss. Mastoid air cells are well aerated. Inspissated secretions in the RIGHT sphenoid sinus. Paranasal sin uses are well aerated. Normal posterior nasopharynx. Vascular calcification. Tiny chronic lacunar inf arct in the RIGHT thalamus. CT/CT head wo con* [id number] IMPRESSION: 1. Previously described intraparenchymal hematomas in the LEFT frontal lobe cantu ve essentially resolved compared to previous. 2. No new or progressive hemorrhage. 3. Associated encephalomalacia in the LEFT frontal lobe. 4. Moderate to advanced small vessel changes with moderate parenchymal volume loss unchanged. 5. Inspissated secretions in the RIGHT sphenoid sinus.
== END 2022-07-02 11:06 | disposition home or self-care (01) ==
PROVIDERS: PCP Family Medicine; Visit Provider Physician Assistant
DX: S06.361A Traumatic hemorrhage of cerebrum, unspecified, with loss of consciousness of 30 minutes or less, initial encounter (principal); G93.89 Other specified disorders of brain; X58.XXXA Exposure to other specified factors, initial encounter
CPT/HCPCS: 70450

== ENCOUNTER 2023-01-03 15:23 | Emergency (ER) | payer MEDICARE, SELFPAY ==
[2023-01-03] VITALS (8 sets, daily range): BP systolic 115–132; BP diastolic 56–68; PULSE 50–60; RESP 18; TEMP 36.6–36.8; O2SAT 96–100; BMI 21.2
[2023-01-03 16:03] LABS: Basophils % 0.4 %; Eosinophils % 0.2 %; Lymphocytes # 1.2 10^3/uL (0.8-4.8); Lymphocytes % 22.3 %; Mean Corpuscular HGB Conc 29.6 g/dL (30-55); Mean Corpuscular Hemoglobin 23.1 pg (27-33); Mean Corpuscular Volume 78.2 fl (82-101); Mean Platelet Volume 10.6 fL (7.4-10.4); Monocytes # 0.8 10^3/uL (0.2-0.9); Monocytes % 13.6 %; Neutrophils # 3.49 10^3/uL (1.8-7.7); Neutrophils % 63.1 %; Nucleated Red Blood Cells % 0 %; Platelet Count 241 10^3/cmm (157-399); Red Blood Count 2.94 10^6/uL (3.85-5.65); Red Cell Distribution Width 19.6 % (12.1-15.1); White Blood Count 5.52 10^3/uL (3.29-11.43)
[2023-01-03 16:30] LABS: Alanine Aminotransferase 17 U/L (0-41); Albumin Level 3.4 g/dL (3.5-5.2); Alkaline Phosphatase 113 U/L (40-130); Anion Gap 15.5 (5-19); Aspartate Amino Transferase 25 U/L (0-40); Blood Urea Nitrogen 55 mg/dL (8-23); Calcium 8.4 mg/dL (8.5-10.5); Carbon Dioxide 24 mmol/L (22-29); Chloride 97 mmol/L (98-107); Globulin 6.4 g/dL (1.3-4.6); Glucose 95 mg/dL (65-115); Osmolality Calculated 291 mOsm/kg (285-295); Potassium 3.5 mmol/L (3.5-5.1); Sodium 133 mmol/L (136-145); Total Bilirubin 1.2 mg/dL (0.15-1.2); Total Protein 9.8 g/dL (6.6-8.7)
--- NOTE | 2023-01-03 17:50 | W.ED.RECABL ---
HPI - Recheck/Abnormal Lab/Rx General: Chief Complaint: Recheck/Abnormal Lab/Rx Stated Complaint: blood transfusion Time Seen by Provider: 01/03/23 17:34 History of Present Illness: 87-year-old male presents emergency room due to abnormal labs. Patient reviews that he was seen and evaluated by his cardiology Saturday and received a call today due to abnormal labs. According to patient he was told he has low hemoglobin. Patient denies any abdominal pain, rectal bleeding, coughing up blood or vomiting blood. Patient had colonoscopy done few months ago which was negative according to the patient. Patient denies any shortness of breath, chest pain, fever or chills. Review of Systems General: Reports: 10 or more systems reviewed and unremarkable except in HPI and below Const: Reports: fatigue; Denies: fever(s), chills, body aches, change in appetite, change in weight, malaise, night sweats, diaphoresis, change in sleep pattern, daytime sleepiness or snoring Card: Denies: chest pain or palpitations Resp: Denies: dyspnea, productive cough, non-productive cough, wheezing, stridor, pain on inspiration, change in phlegm color, hemoptysis or chest congestion GI: Denies: abdominal pain, nausea, vomiting, hematemesis, coffee ground emesis, dysphagia, heartburn, early satiety, diarrhea, constipation, bloating, GI cramping, belching, excessive flatus, fecal incontinence, change in bowel habits, pain on defecation or rectal pain Neuro: Reports: dizziness; Denies: headache(s), sensory changes, lack of coordination, difficulty walking or confusion PFS ED PFSH: Medical History (Updated 01/03/23 @ 22:58 by Gladis Scott MD) Abdominal discomfort Allergic rhinitis Change in stool habits Chronic anticoagulation INR goal 2-3 Chronic neck pain History of colon polyps Hx of basal cell carcinoma Hx pulmonary embolism Hypertension Impairment of balance Left inguinal hernia Nocturia more than twice per night Sleeplessness Type 2 diabetes mellitus Diet managed Urinary hesitancy Surgical History (Updated 06/30/22 @ 11:44 by Giana Marie MD) History of colonoscopy History of esophagogastroduodenoscopy Hx of cataract surgery Family History Other CAD (coronary artery disease) Cancer Diabetes Heart attack Hyperlipidemia Hypertension Rheumatoid arthritis Stroke Denies family history of Lupus Chronic kidney disease (CKD) Social History Smoking and tobacco status: never smoked Alcohol intake: current Alcohol intake frequency: few times a week Substance/Drug Use: never Physical Exam Const: COMMON NORMALS: no acute distress, average body habitus, patient oriented x3, no limitations, healthy appearing, alert and well nourished HENMT: COMMON NORMALS: normocephalic, atraumatic, hearing grossly normal bilaterally, external ears normal, EAC's normal, TM's normal bilaterally, Normal external nose present, Normal nasal mucous membranes and turbinates present, moist oral mucous membranes, oropharynx normal, dentition normal and gingiva normal HEAD & SCALP: normocephalic and atraumatic NOSE: Normal external nose present and Normal nasal mucous membranes and turbinates present EXTERNAL EAR: Yes external ears normal EXTERNAL AUDITORY CANAL: EAC's normal TYMPANIC MEMBRANE: TM's normal bilaterally Chest: COMMONS NORMALS: normal inspection of the chest, normal palpation of entire chest wall, normal inspection of the breasts and normal palpation of the breasts Breast/axilla inspection: Yes normal inspection of the breasts BREAST/AXILLA PALPATION: Yes normal palpation of the breasts Resp: COMMON NORMALS: normal respiratory effort, No retractions, No use of accessory muscles, clear to auscultation bilaterally and percussion normal AUSCULTATION: clear to auscultation bilaterally PERCUSSION: percussion normal GI: COMMON NORMALS: Normal to inspection, nondistended, normoactive bowel sounds present, Soft to palpation, non-tender, No hepatosplenomegaly present, no masses and no bruits PALPATION: Yes Soft to palpation and Yes No hepatosplenomegaly present Extremity: COMMON NORMALS: normal to inspection, full ROM, capillary refill normal, no joint enlargement, no clubbing, cyanosis or edema, no calf tenderness and no pedal edema Neuro: COMMON NORMALS: patient oriented x3 SENSORIUM/ORIENTATION: Yes alert Course Vital Signs: Vital signs: Vital Signs Temperature 98.0 F 01/03/23 21:29 Pulse Rate 50 L 01/03/23 21:29 Respiratory Rate 18 01/03/23 21:29 Blood Pressure 123/58 01/03/23 21:29 Pulse Oximetry 96 09/14/23 21:29 Oxygen Delivery Me thod Room Air 01/03/23 18:29 MDM - Recheck/Abnormal Lab/Rx Medical Decision Making Patient was made comfortable emergency room. Patient had extensive work-up including CBC, CMP and was given 1 unit of packed red blood cells. Hemoglobin improved with current treatment. Differential Diagnosis Likely warfarin-induced coagulopathy (Upper GI bleed, lower GI bleed anemia) Lab Data 01/03/23 22:06 01/03/23 15:42 Laboratory Results WBC 5.52 10^3/uL (3.29-11.43) 01/03/23 15:42 RBC 2.94 10^6/uL (3.85-5.65) L 01/03/23 15:42 Hgb 7.30 g/dL (11.27-16.99) L 01/03/23 22:06 Hct 24.2 % (37-53) L 01/03/23 22:06 MCV 78.2 fl (82-101) L 01/03/23 15:42 MCH 23.1 pg (27-33) L 01/03/23 15:42 MCHC 29.6 g/dL (30-55) L 01/03/23 15:42 RDW 19.6 % (12.1-15.1) H 01/03/23 15:42 Plt Count 241 10^3/cmm (157-399) 01/03/23 15:42 MPV 10.6 fL (7.4-10.4) H 01/03/23 15:42 Neut % (Auto) 63.1 % 01/03/23 15:42 Lymph % (Auto) 22.3 % 01/03/23 15:42 [place] % (Auto) 13.6 % 01/03/23 15:42 Eos % (Auto) 0.2 % 01/03/23 15:42 Baso % (Auto) 0.4 % 01/03/23 15:42 Neut # (Auto) 3.49 10^3/uL (1.8-7.7) 01/03/23 15:42 Lymph # (Auto) 1.2 10^3/uL (0.8-4.8) 01/03/23 15:42 [place] # (Auto) 0.8 10^3/uL (0.2-0.9) 01/03/23 15:42 Eos # (Auto) 0.0 10^3/uL (0.0-0.8) 01/03/23 15:42 Baso # (Auto) 0.0 10^3/uL (0.0-0.1) 01/03/23 15:42 Nucleated RBC % (auto) 0 % 01/03/23 15:42 Nucleated RBCs # 0.0 /100WBC 01/03/23 15:42 Sodium 133 mmol/L (136-145) L 01/03/23 15:42 Potassium 3.5 mmol/L (3.5-5.1) 01/03/23 15:42 Chloride 97 mmol/L (98-107) L 01/03/23 15:42 Carbon Dioxide 24 mmol/L (22-29) 01/03/23 15:42 Anion Gap 15.5 (5-19) 01/03/23 15:42 BUN 55 mg/dL (8-23) H 01/03/23 15:42 Creatinine 1.5 mg/dL (0.7-1.2) H 01/03/23 15:42 GFR Calculation Not Reportable 01/03/23 15:42 Glucose 95 mg/dL (65-115) 01/03/23 15:42 Calculated Osmolality 291 mOsm/kg (285-295) 01/03/23 15:42 Calcium 8.4 mg/dL (8.5-10.5) L 01/03/23 15:42 Total Bilirubin 1.2 mg/dL (0.15-1.2) 01/03/23 15:42 AST 25 U/L (0-40) 01/03/23 15:42 ALT 17 U/L (0-41) 01/03/23 15:42 Alkaline Phosphatase 113 U/L (40-130) 01/03/23 15:42 Total Protein 9.8 g/dL (6.6-8.7) H 01/03/23 15:42 Albumin 3.4 g/dL (3.5-5.2) L 01/03/23 15:42 Globulin 6.4 g/dL (1.3-4.6) H 01/03/23 15:42 Blood Type A Negative 01/03/23 17:50 Rho(D) Type Negative 01/03/23 17:50 Antibody Screen Negative 01/03/23 17:50 Crossmatch See Detail 01/03/23 17:50 No radiology studies performed this visit Critical Care Time Critical Care Time: Critical Care Time: Yes Total Critical Care Time: 40 Attestation: Patient was made comfortable emergency room. Patient was given 1 unit of packed red blood cells. Patient reassessed while emergency room Discharge Plan Discharge Patient Disposition: Home Clinical Impression: Anemia Condition: Stable Prescriptions: No Action fluticasone propionate [Flonase Allergy Relief] 50 mcg/actuation spray,suspension 1 spray intranasal BID Qty: 16 5RF Rx Instructions: administer into each nostril lisinopril 40 mg tablet 40 mg PO DAILY 90 Days Qty: 90 1RF omeprazole 40 mg capsule,delayed release(DR/EC) 40 mg PO BID 90 Days Qty: 180 1RF fluoxetine 20 mg capsule 20 mg PO DAILY 30 Days Qty: 30 1RF Hold Instructions: Home Medication placed on hold at Doctor's office tamsulosin [Flomax] 0.4 mg capsule 0.4 mg PO DAILY Qty: 60 0RF Hold Instructions: Home Medication placed on hold at Doctor's office (DME) Contour Next Test Strips Strip See Rx Instructions .Route Qty: 50 11RF Rx Instructions: use to test blood sugar once daily amlodipine 10 mg tablet See Rx Instructions .ROUTE .COMPLEX Qty: 30 0RF Dose Instruction: TAKE ONE TABLET BY MOUTH DAILY Rx Instructions: TAKE ONE TABLET BY MOUTH DAILY metoprolol succinate 25 mg tablet extended release 24 hr See Rx Instructions .ROUTE .COMPLEX Qty: 90 0RF Dose Instruction: TAKE ONE TABLET BY MOUTH DAILY Rx Instructions: TAKE ONE TABLET BY MOUTH DAILY hydroxychloroquine 200 mg tablet 200 mg PO BID Qty: 60 3RF Discharge Orders: Discharge ED (Routine); Ordered 01/03/23 Ordered By: Gladis Scott Referrals: Srinivasa Anderson MD [Primary Care Provider] - Discharge Diet: Advance as tolerated Discharge Activity: Resume usual activity Patient Instructions: Opioid Safety, Pain Management Coding Level of Care Code [facility] [employer] for Steffany Redmond
--- NOTE | 2023-01-03 20:16 | PC.NURSE ---
Blood administration started. Pt. is alert and oriented and has no complaints or needs. Nurse is at bedside for initial 15 minutes of transfusion for observation.
[2023-01-03 22:21] LABS: Hematocrit 24.2 % (37-53)
== END 2023-01-03 23:42 | disposition home or self-care (01) ==
PROVIDERS: Emergency Medicine; Emergency Provider Family Medicine; PCP Family Medicine
DX: D64.9 Anemia, unspecified (principal); Z86.711 Personal history of pulmonary embolism; I10 Essential (primary) hypertension; E11.9 Type 2 diabetes mellitus without complications
CPT/HCPCS: 36415; 36430; 80053; 85014; 85018; 85025; 86850; 86900; 86920; 99284; P9016

== ENCOUNTER 2024-01-24 04:55 | Observation (INO) | payer MEDICARE, SELFPAY ==
[2024-01-24] VITALS (10 sets, daily range): BP systolic 153–200; BP diastolic 77–102; PULSE 48–61; RESP 15–20; TEMP 36.4–36.6; O2SAT 96–98; BMI 21.9
--- NOTE | 2024-01-24 05:23 | W.ED.GIBLEED ---
Documented by User: Judson Anaya DO 01/24/24 05:26 HPI - GI Bleed General: Chief complaint: GI Bleed Stated complaint: bleeding from rectum Time Seen by Provider: 01/24/24 05:10 History of Present Illness: Patient woke this morning approximate 330 with bright red blood coming out of his rectum. Patient does state he has a history of hemorrhoids. Patient denies any abdominal pain rectal pain nausea vomiting diarrhea constipation fever chills. Patient is on no anticoagulation. Related Data Home Medications Medication Instructions Recorded Confirmed acetaminophen 325 mg tablet 325 mg PO QID PRN Pain 01/24/24 01/24/24 (Tylenol) fluticasone propionate 50 1 spray intranasal BID PRN 01/24/24 01/24/24 mcg/actuation nasal allergies spray,suspension (Flonase Allergy Relief) losartan 100 mg tablet 100 mg PO DAILY 01/24/24 01/24/24 prednisone 5 mg tablet 5 mg PO DAILY 01/24/24 01/24/24 tamsulosin 0.4 mg capsule 0.4 mg PO DAILY 01/24/24 01/24/24 trazodone 100 mg tablet 100 mg PO DAILY PRN sleep 01/24/24 01/24/24 Previous Rx's Medication Instructions Recorded blood sugar diagnostic (Contour #50 ea 05/18/22 Next Test Strips) Allergies Allergy/AdvReac Type Severity Reaction Status Date / Time No Known Allergies Allergy Verified 01/03/23 16:00 Review of Systems General: Reports: 10 or more systems reviewed and unremarkable except in HPI and below PFSH ED PFSH: Medical History (Updated 01/24/24 @ 10:42 by Basilio Quintero DO) History of transcatheter aortic valve replacement (TAVR) History of colon polyps Impairment of balance Sleeplessness Left inguinal hernia Urinary hesitancy Nocturia more than twice per night Change in stool habits Abdominal discomfort Hx of basal cell carcinoma Allergic rhinitis Chronic neck pain Type 2 diabetes mellitus Diet managed Chronic anticoagulation INR goal 2-3 Hx pulmonary embolism Hypertension Surgical History (Updated 01/24/24 @ 10:08 by PAULO Sterling) History of inguinal hernia repair History of mitral valve repair History of colonoscopy History of esophagogastroduodenoscopy Hx of cataract surgery Family History Other CAD (coronary artery disease) Cancer Diabetes Heart attack Hyperlipidemia Hypertension Rheumatoid arthritis Stroke Denies family history of Lupus Chronic kidney disease (CKD) Social History (Updated 01/24/24 @ 10:05 by PAULO Sterling STD) Smoking and tobacco/nicotine status: former use of tobacco/nicotine Quit status (tobacco/nicotine): has quit using Former quit date comment: over 40 years ago Alcohol intake: current Alcohol intake frequency: few times a week Substance/Drug Use: never Physical Exam Const: COMMON NORMALS: no acute distress, average body habitus, patient oriented x3, no limitations, healthy appearing, alert and well nourished HENMT: COMMON NORMALS: normocephalic, atraumatic, hearing grossly normal bilaterally, external ears normal, Normal external nose present and moist oral mucous membranes HEAD & SCALP: normocephalic and atraumatic NOSE: Normal external nose present EXTERNAL EAR: Yes external ears normal Neck/C-Spine: COMMON NORMALS: no JVD Chest: COMMONS NORMALS: normal inspection of the chest and normal palpation of entire chest wall Resp: COMMON NORMALS: normal respiratory effort, No retractions, No use of accessory muscles and clear to auscultation bilaterally AUSCULTATION: clear to auscultation bilaterally Cardio: COMMON NORMALS: no JVD, regular rate, regular rhythm, S1 normal heart sound present, S2 normal heart sound present, No gallops present (Cardio), No clicks present (Cardio), No murmurs present (Cardio) and No rub (Cardio) RATE: regular rate RHYTHM: regular rhythm HEART SOUNDS: S1 normal heart sound present and S2 normal heart sound present GI: COMMON NORMALS: Normal to inspection, nondistended, normoactive bowel sounds present, Soft to palpation, non-tender, No hepatosplenomegaly present and no masses PALPATION: Yes Soft to palpation and Yes No hepatosplenomegaly present Neuro: COMMON NORMALS: patient oriented x3 SENSORIUM/ORIENTATION: Yes alert Course Vital Signs: Vital signs: Vital Signs Temperature 98 F 01/24/24 05:16 Pulse Rate 60 01/24/24 10:00 Respiratory Rate 20 H 01/24/24 05:16 Blood Pressure 167/94 01/24/24 10:00 Pulse Oximetry 98 01/24/24 10:00 MDM - GI Bleed Medical Records I reviewed the patient's medical records. Lab Data I reviewed the patient's lab results. 01/24/24 08:24 01/24/24 05:30 Radiology Impressions Abdomen/Pelvis CT 01/24/24 05:42 IMPRESSION: 1. Diverticulosis without secondary evidence of acute diverticulitis. Multiple radiodense foci within the colon primarily within the diverticuli. Please note that these cannot be fully differentiated from hemorrhage, if there is concern for ongoing hemorrhage would recommend consideration for formal pre and post-contrast GI bleeding CT scan or nuclear GI bleeding scan. 2. Cholelithiasis without secondary evidence of acute cholecystitis. Stable 6 mm right lower lobe pulmonary nodule as this is stable from 06/02/2022, it fulfills the relevant Fleischner guidelines which are given below for reference: For patients at low risk (minimal or absent history of smoking and of other known risk factors), recommend CT Chest at 6-12 months, then consider CT Chest at 18-24 months. For patients at high risk (history of smoking or of other known risk factors), recommend CT Chest at 6-12 months, then CT Chest at 18-24 months. Please note that these recommendations do not apply to lung cancer screening, patients with immunosuppression, or patients with known primary cancer. (Reference: Drew). 4. Please see above additional comments. References: Drew H, et al. Guidelines for Management of Incidental Pulmonary Nodules Detected on CT Images: From the Fleischner Society 2017. Radiology. 2017;284(1):228-243. . Laboratory Results WBC 4.62 10^3/uL (3.29-11.43) 01/24/24 08:24 RBC 3.55 10^6/uL (3.85-5.65) L 01/24/24 08:24 Hgb 10.00 g/dL (11.27-16.99) L 01/24/24 08:24 Hct 32.2 % (37-53) L 01/24/24 08:24 MCV 90.7 fl (82-101) 01/24/24 08:24 MCH 28.2 pg (27-33) 01/24/24 08:24 MCHC 31.1 g/dL (30-55) 01/24/24 08:24 RDW 16.0 % (12.1-15.1) H 01/24/24 08:24 Plt Count 125 10^3/cmm (157-399) L 01/24/24 08:24 MPV 11.1 fL (7.4-10.4) H 01/24/24 08:24 Neut % (Auto) 65.9 % 01/24/24 08:24 Lymph % (Auto) 22.1 % 01/24/24 08:24 [place] % (Auto) 10.8 % 01/24/24 08:24 Eos % (Auto) 0.4 % 01/24/24 08: Baso % (Auto) 0.4 % 01/24/24 08:24 Neut # (Auto) 3.04 10^3/uL (1.8-7.7) 01/24/24 08: Lymph # (Auto) 1.0 10^3/uL (0.8-4.8) 01/24/24 08:24 [place] # (Auto) 0.5 10^3/uL (0.2-0.9) 01/24/24 08: Eos # (Auto) 0.0 10^3/uL (0.0-0.8) 01/24/24 08: Baso # (Auto) 0.0 10^3/uL (0.0-0.1) 01/24/24 08:24 Nucleated RBC % (auto) 0 % 01/24/24 08: Nucleated RBCs # 0.0 /100WBC 01/24/24 08:24 PT 15.50 SECONDS (12.1-14.9) H 01/24/24 05:30 INR 1.19 (0.8-1.2) 01/24/24 05:30 Sodium 142 mmol/L (136-145) 01/24/24 05:30 Potassium 4.5 mmol/L (3.5-5.1) 01/24/24 05:30 Chloride 109 mmol/L (98-107) H 01/24/24 05:30 Carbon Dioxide 24 mmol/L (22-29) 01/24/24 05:30 Anion Gap 13.5 (5-19) 01/24/24 05:30 BUN 32 mg/dL (8-23) H 01/24/24 05:30 Creatinine 1.3 mg/dL (0.7-1.2) H 01/24/24 05:30 GFR Calculation Not Reportable 01/24/24 05:30 Glucose 101 mg/dL (65-115) 01/24/24 05:30 Calculated Osmolality 301 mOsm/kg (285-295) H 01/24/24 05:30 Calcium 8.6 mg/dL (8.5-10.5) 01/24/24 05:30 Total Bilirubin 0.6 mg/dL (0.15-1.2) 01/24/24 05:30 AST 29 U/L (0-40) 01/24/24 05:30 ALT 27 U/L (0-41) 01/24/24 05:30 Alkaline Phosphatase 108 U/L (40-130) 01/24/24 05:30 Total Protein 8.5 g/dL (6.6-8.7) 01/24/24 05:30 Albumin 3.7 g/dL (3.5-5.2) 01/24/24 05:30 Globulin 4.8 g/dL (1.3-4.6) H 01/24/24 05:30 Discharge Plan Discharge Patient Disposition: Placed in Observation Admit Provider: Elie Rosario Clinical Impression: GI bleed, Anemia, A-fib Condition: Stable Sign Out Sign Out Data: Patient Sign Out occurred on 01/24/24 at 06:13. Patient's care was discussed, and care was transferred from Judson Anaya DO to Basilio Quintero DO. Coding Level of Care Code ED Asset Protection Detective for Chg Fwd Documented by User: Basilio Quintero DO 01/24/24 10:42 HPI - GI Bleed General: Chief complaint: GI Bleed Stated complaint: bleeding from rectum Time Seen by Provider: 01/24/24 05:10 Related Data Home Medications Medication Instructions Recorded Confirmed acetaminophen 325 mg tablet 325 mg PO QID PRN Pain 01/24/24 01/24/24 (Tylenol) fluticasone propionate 50 1 spray intranasal BID PRN 01/24/24 01/24/24 mcg/actuation nasal allergies spray,suspension (Flonase Allergy Relief) losartan 100 mg tablet 100 mg PO DAILY 01/24/24 01/24/24 prednisone 5 mg tablet 5 mg PO DAILY 01/24/24 01/24/24 tamsulosin 0.4 mg capsule 0.4 mg PO DAILY 01/24/24 01/24/24 trazodone 100 mg tablet 100 mg PO DAILY PRN sleep 01/24/24 01/24/24 Previous Rx's Medication Instructions Recorded blood sugar diagnostic (Contour #50 ea 05/18/22 Next Test Strips) Allergies Allergy/AdvReac Type Severity Reaction Status Date / Time No Known Allergies Allergy Verified 01/03/23 16:00 [facility] ED PFSH: Medical History (Updated 01/24/24 @ 10:42 by Basilio Quintero DO) History of transcatheter aortic valve replacement (TAVR) History of colon polyps Impairment of balance Sleeplessness Left inguinal hernia Urinary hesitancy Nocturia more than twice per night Change in stool habits Abdominal discomfort Hx of basal cell carcinoma Allergic rhinitis Chronic neck pain Type 2 diabetes mellitus Diet managed Chronic anticoagulation INR goal 2-3 Hx pulmonary embolism Hypertension Surgical History (Updated 01/24/24 @ 10:08 by Arcelia Todd MED STDSANG) History of inguinal hernia repair History of mitral valve repair History of colonoscopy History of esophagogastroduodenoscopy Hx of cataract surgery Family History Other CAD (coronary artery disease) Cancer Diabetes Heart attack Hyperlipidemia Hypertension Rheumatoid arthritis Stroke Denies family history of Lupus Chronic kidney disease (CKD) Social History (Updated 01/24/24 @ 10:05 by Arcelia Todd MED STDNT) Smoking and tobacco/nicotine status: former use of tobacco/nicotine Quit status (tobacco/nicotine): has quit using Former quit date comment: over 40 years ago Alcohol intake: current Alcohol intake frequency: few times a week Substance/Drug Use: never Course Vital Signs: Vital signs: Vital Signs Temperature 98 F 01/24/24 05:16 Pulse Rate 60 01/24/24 10:00 Respiratory Rate 20 H 01/24/24 05:16 Blood Pressure 167/94 01/24/24 10:00 Pulse Oximetry 98 01/24/24 10:00 MDM - GI Bleed Medical Decision Making Care assumed at change of shift. Patient has not had any further bleeding but did have significant amount when he woke up in the large amount shortly after he woke up and he went to the shower. He has had significant bleeding the past point was gotten down to a hemoglobin of 6. He currently has a Watchman device he has previously been on Coumadin but was taken off because of frequent falls in addition he has had a TAVR done is also had mitral valve procedure done. None of them are mechanical valves. CT did not show any acute diverticulitis but did show diverticulosis. Suspect he may be bleeding from the diverticuli may have a subclinical infection we will start him on Cipro and Flagyl metronidazole. Will place him on observation on recheck was hemoglobin had dropped nearly a point. He did have a colonoscopy within the last year and a half and prior to that had a barium enema those were reviewed on the chart. Discussed with the hospitalist orders written. Lab Data 01/24/24 08:24 01/24/24 05:30 Radiology Impressions Abdomen/Pelvis CT 01/24/24 05:42 IMPRESSION: 1. Diverticulosis without secondary evidence of acute diverticulitis. Multiple radiodense foci within the colon primarily within the diverticuli. Please note that these cannot be fully differentiated from hemorrhage, if there is concern for ongoing hemorrhage would recommend consideration for formal pre and post-contrast GI bleeding CT scan or nuclear GI bleeding scan. 2. Cholelithiasis without secondary evidence of acute cholecystitis. Stable 6 mm right lower lobe pulmonary nodule as this is stable from 06/02/2022, it fulfills the relevant Fleischner guidelines which are given below for reference: For patients at low risk (minimal or absent history of smoking and of other known risk factors), recommend CT Chest at 6-12 months, then consider CT Chest at 18-24 months. For patients at high risk (history of smoking or of other known risk factors), recommend CT Chest at 6-12 months, then CT Chest at 18-24 months. Please note that these recommendations do not apply to lung cancer screening, patients with immunosuppression, or patients with known primary cancer. (Reference: Drew). 4. Please see above additional comments. References: Drew Ponce, et al. Guidelines for Management of Incidental Pulmonary Nodules Detected on CT Images: From the Fleischner Society 2017. Radiology. 2017;284(1):228-243. . Laboratory Results WBC 4.62 10^3/uL (3.29-11.43) 01/24/24 08: RBC 3.55 10^6/uL (3.85-5.65) L 01/24/24 08:24 Hgb 10.00 g/dL (11.27-16.99) L 01/24/24 08:24 Hct 32.2 % (37-53) L 01/24/24 08:24 MCV 90.7 fl (82-101) 01/24/24 08: MCH 28.2 pg (27-33) 01/24/24 08: MCHC 31.1 g/dL (30-55) 01/24/24 08: RDW 16.0 % (12.1-15.1) H 01/24/24 08:24 Plt Count 125 10^3/cmm (157-399) L 01/24/24 08:24 MPV 11.1 fL (7.4-10.4) H 01/24/24 08:24 Neut % (Auto) 65.9 % 01/24/24 08:24 Lymph % (Auto) 22.1 % 01/24/24 08: [place] % (Auto) 10.8 % 01/24/24 08: Eos % (Auto) 0.4 % 01/24/24:24 Baso % (Auto) 0.4 % 01/24/24 08:24 Neut # (Auto) 3.04 10^3/uL (1.8-7.7) 01/24/24 08:24 Lymph # (Auto) 1.0 10^3/uL (0.8-4.8) 01/24/24 08:24 [place] # (Auto) 0.5 10^3/uL (0.2-0.9) 01/24/24 08: Eos # (Auto) 0.0 10^3/uL (0.0-0.8) 01/24/24 08:24 Baso # (Auto) 0.0 10^3/uL (0.0-0.1) 01/24/24 08:24 Nucleated RBC % (auto) 0 % 01/24/24 08:24 Nucleated RBCs # 0.0 /100WBC 01/24/24 08:24 PT 15.50 SECONDS (12.1-14.9) H 01/24/24 05:30 INR 1.19 (0.8-1.2) 01/24/24 05:30 Sodium 142 mmol/L (136-145) 01/24/24 05:30 Potassium 4.5 mmol/L (3.5-5.1) 01/24/24 05:30 Chloride 109 mmol/L (98-107) H 01/24/24 05:30 Carbon Dioxide 24 mmol/L (22-29) 01/24/24 05:30 Anion Gap 13.5 (5-19) 01/24/24 05:30 BUN 32 mg/dL (8-23) H 01/24/24 05:30 Creatinine 1.3 mg/dL (0.7-1.2) H 01/24/24 05:30 GFR Calculation Not Reportable 01/24/24 05:30 Glucose 101 mg/dL (65-115) 01/24/24 05:30 Calculated Osmolality 301 mOsm/kg (285-295) H 01/24/24 05:30 Calcium 8.6 mg/dL (8.5-10.5) 01/24/24 05:30 Total Bilirubin 0.6 mg/dL (0.15-1.2) 01/24/24 05:30 AST 29 U/L (0-40) 01/24/24 05:30 ALT 27 U/L (0-41) 01/24/24 05:30 Alkaline Phosphatase 108 U/L (40-130) 01/24/24 05:30 Total Protein 8.5 g/dL (6.6-8.7) 01/24/24 05:30 Albumin 3.7 g/dL (3.5-5.2) 01/24/24 05:30 Globulin 4.8 g/dL (1.3-4.6) H 01/24/24 05:30 All radiology interpretation(s) finalized by discharge Discharge Plan Discharge Patient Disposition: Placed in Observation Admit Provider: Elie Rosario Clinical Impression: GI bleed, Anemia, A-fib Condition: Stable Sign Out Sign Out Data: Patient Sign Out occurred on 01/24/24 at 06:13. Patient's care was discussed, and care was transferred from Judson Anaya DO to Basilio Quintero DO. Coding Level of Care Code ED Asset Protection Detective for Steffany Redmond
[2024-01-24] MEDS: cloNIDine 0.1 mg Tablet 0.2 MG PO (05:40)
[2024-01-24 05:41] LABS: Basophils % 0.2 %; Eosinophils # 0.1 10^3/uL (0.0-0.8); Eosinophils % 1.4 %; Hematocrit 34.5 % (37-53); Lymphocytes # 1.4 10^3/uL (0.8-4.8); Lymphocytes % 31.4 %; Mean Corpuscular HGB Conc 31.6 g/dL (30-55); Mean Corpuscular Hemoglobin 28.3 pg (27-33); Mean Corpuscular Volume 89.6 fl (82-101); Mean Platelet Volume 10.4 fL (7.4-10.4); Monocytes # 0.4 10^3/uL (0.2-0.9); Neutrophils # 2.54 10^3/uL (1.8-7.7); Neutrophils % 57.5 %; Nucleated Red Blood Cells % 0 %; Platelet Count 138 10^3/cmm (157-399); Red Blood Count 3.85 10^6/uL (3.85-5.65); White Blood Count 4.42 10^3/uL (3.29-11.43)
--- NOTE | 2024-01-24 05:42 | CTR_ITS ---
PROCEDURE INFORMATION: Exam: CT Abdomen And Pelvis With Contrast Exam date and time: 01/24/2024 6:13 AM Age: 88 years old Clinical indication: Other: Lower gi bleed; Prior surgery; Surgery date: 6+ months; Surgery type: Hernia TECHNIQUE: Imaging protocol: Computed tomography of the abdomen and pelvis with contrast. Total images: 231 Radiation optimization: All CT scans at this facility use at least one of these dose optimization techniques: automated exposure control; mA and/or kV adjustment per patient size (includes targeted exams where dose is matched to clinical indication); or iterative reconstruction. Contrast material: OMNI 350; Contrast volume: 75 ml; Contrast route: INTRAVENOUS (IV); COM[place]ISON: [place] [id number] 06/02/2022 8:15 AM RADIATION DOSE METRICS: Total DLP (mGy-cm): 569.92 FINDINGS: Tubes, catheters and devices: An aortic valve prosthesis is present. Implanted device within the right ventricle is also newly demonstrated from previous. Lungs: The imaged lung bases demonstrate bibasilar densities suggesting atelectasis and/or scarring. A stable 6 mm right lower lobe nodule is present at the costophrenic angle. There is a small area of consolidation within the inferior lingula now demonstrated. Pleural spaces: Minimal bilateral pleural effusions. Heart: Heart is incompletely imaged but is enlarged. Coronary arteries: Coronary artery atherosclerosis. Liver: The liver contains a 4.2 cm water attenuation cyst. The liver appears mildly enlarged measuring approximately 16 cm in span along the midclavicular line. Gallbladder and biliary ducts: Phrygian cap of the gallbladder. Small calcified gallstones without definite secondary acute inflammatory changes. The gallbladder is mildly distended however. No biliary ductal dilatation identified. Pancreas: The pancreas appears unremarkable. Spleen: Unremarkable. Adrenal glands: Not enlarged. Kidneys and ureters: No hydronephrosis of either kidney. Punctate nonobstructive right intrarenal calculus. 3.4 cm water attenuation right renal cyst with no complicating features identified. Stomach and bowel: A medial duodenal diverticulum is present. No small bowel obstruction identified. Large amount of retained stool. Colonic diverticulosis. Multiple diverticuli containing radiodense material. Appendix: No acute inflammatory change of the appendix identified. Intraperitoneal space: No significant volume of free fluid identified. Vasculature: Atherosclerosis present in major vasculature with mild atherosclerotic ectasia of the infrarenal abdominal aorta at 2.4 cm diameter and of the proximal aorta at 2.5 cm diameter. Consider follow-up imaging in five years for further assessment of this finding. Lymph nodes: No adenopathy noted. Urinary bladder: Unremarkable as visualized. Reproductive: Prostate gland is moderately enlarged. Bones/joints: Osseous structures demonstrate osteopenia. 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 There is also mild retrolisthesis of L4 on L5 which also appears similar to previous. Scattered age consistent degenerative changes. Soft tissues: Prominent fat within the inguinal canals bilaterally. CT/CT abdomen pelvis w con* [id number] IMPRESSION: 1. Diverticulosis without secondary evidence of acute diverticulitis. Multiple radiodense foci within the colon primarily within the diverticuli. Please note that these cannot be fully differentiated from hemorrhage, if there is concern for ongoing hemorrhage would recommend consideration for formal pre and post-contrast GI bleeding CT scan or nuclear GI bleeding scan. 2. Cholelithiasis without secondary evidence of acute cholecystitis. Stable 6 mm right lower lobe pulmonary nodule as this is stable from 06/02/2022, it fulfills the relevant Fleischner guidelines which are given below for reference: For patients at low risk (minimal or absent history of smoking and of other known risk factors), recommend CT Chest at 6-12 months, then consider CT Chest at 18-24 months. For patients at high risk (history of smoking or of other known risk factors), recommend CT Chest at 6-12 months, then CT Chest at 18-24 months. Please note that these recommendations do not apply to lung cancer screening, patients with immunosuppression, or patients with known primary cancer. (Reference: Drew). 4. Please see above additional comments. References: Drew Ponce et al. Guidelines for Management of Incidental Pulmonary Nodules Detected on CT Images: From the Fleischner Society 2017. Radiology. 2017;284(1):228-243. .
[2024-01-24 05:53] LABS: INR 1.19 (0.8-1.2)
[2024-01-24 05:57] LABS: Alanine Aminotransferase 27 U/L (0-41); Albumin Level 3.7 g/dL (3.5-5.2); Alkaline Phosphatase 108 U/L (40-130); Anion Gap 13.5 (5-19); Aspartate Amino Transferase 29 U/L (0-40); Blood Urea Nitrogen 32 mg/dL (8-23); Calcium 8.6 mg/dL (8.5-10.5); Carbon Dioxide 24 mmol/L (22-29); Chloride 109 mmol/L (98-107); Creatinine Clr Calc Pharmacy 48.8878; Globulin 4.8 g/dL (1.3-4.6); Glucose 101 mg/dL (65-115); Osmolality Calculated 301 mOsm/kg (285-295); Potassium 4.5 mmol/L (3.5-5.1); Sodium 142 mmol/L (136-145); Total Bilirubin 0.6 mg/dL (0.15-1.2); Total Protein 8.5 g/dL (6.6-8.7)
[2024-01-24] MEDS: iohexol 350 mg/mL 500 mL Btl (per mL) IV (06:17)
[2024-01-24 08:30] LABS: Basophils % 0.4 %; Eosinophils % 0.4 %; Hematocrit 32.2 % (37-53); Lymphocytes % 22.1 %; Mean Corpuscular HGB Conc 31.1 g/dL (30-55); Mean Corpuscular Hemoglobin 28.2 pg (27-33); Mean Corpuscular Volume 90.7 fl (82-101); Mean Platelet Volume 11.1 fL (7.4-10.4); Monocytes # 0.5 10^3/uL (0.2-0.9); Monocytes % 10.8 %; Neutrophils # 3.04 10^3/uL (1.8-7.7); Neutrophils % 65.9 %; Nucleated Red Blood Cells % 0 %; Platelet Count 125 10^3/cmm (157-399); Red Blood Count 3.55 10^6/uL (3.85-5.65); White Blood Count 4.62 10^3/uL (3.29-11.43)
[2024-01-24] MEDS: ciprofloxacin 400 MG/200 ML PREMIX 200 MG IV (09:35)
--- NOTE | 2024-01-24 09:45 | P.HP_ITS ---
Documented by User: PAULO Sterling STD 01/24/24 10:58 Providers/Chief Complaint 2 Primary Care Provider: Srinivasa Anderson MD Chief Complaint: bleeding from rectum History of Present Illness Moiz Hernandez is a 88 year old male with PMH of TAVR, Mitral valve repair, HTN, GERD, history of PE, history GI ulcers, and history of diverticulitis, represents for bleeding from rectal. Patient reports that he woke up around 3:30am and found a small pool on blood on the bed. Patient went to the shower to clean up and experienced an episode of rapid, nonpainful burst of a quart of bright red blood from his rectal without voluntary straining, lose of consciousness, or dizziness. Patient states he has not experienced this amount of blood from rectum before. Patient denies chest pain, SOB, headache, lightheadedness, vision changes, fever, diarrhea, constipation, Nausea, vomiting, abdominal or rectal pain. Patient is not on aspirin or anticoagulants. Review of Systems 2 General: Reports: 10 or more systems reviewed and unremarkable except in HPI and below Medications/Allergies Home Medications Medication Instructions Recorded Confirmed Last Taken Type blood sugar diagnostic (Contour #50 ea 05/18/22 01/24/24 Unknown Rx Next Test Strips) acetaminophen 325 mg tablet 325 mg PO QID PRN Pain 01/24/24 01/24/24 Unknown History (Tylenol) fluticasone propionate 50 1 spray intranasal BID PRN 01/24/24 01/24/24 Unknown History mcg/actuation nasal allergies spray,suspension (Flonase Allergy Relief) losartan 100 mg tablet 100 mg PO DAILY 01/24/24 01/24/24 01/23/24 History prednisone 5 mg tablet 5 mg PO DAILY 01/24/24 01/24/24 01/23/24 History tamsulosin 0.4 mg capsule 0.4 mg PO DAILY 01/24/24 01/24/24 01/23/24 History trazodone 100 mg tablet 100 mg PO DAILY PRN sleep 01/24/24 01/24/24 Unknown History Allergies Allergy/AdvReac Type Severity Reaction Status Date / Time No Known Allergies Allergy Verified 01/03/23 16:00 PFSH Acute 2 PFSH: Medical History History of transcatheter aortic valve replacement (TAVR) History of colon polyps Impairment of balance Sleeplessness Left inguinal hernia Urinary hesitancy Nocturia more than twice per night Change in stool habits Abdominal discomfort Hx of basal cell carcinoma Allergic rhinitis Chronic neck pain Type 2 diabetes mellitus Diet managed Chronic anticoagulation INR goal 2-3 Hx pulmonary embolism Hypertension Surgical History History of inguinal hernia repair History of mitral valve repair History of colonoscopy History of esophagogastroduodenoscopy Hx of cataract surgery Family History Other CAD (coronary artery disease) Cancer Diabetes Heart attack Hyperlipidemia Hypertension Rheumatoid arthritis Stroke Denies family history of Lupus Chronic kidney disease (CKD) Social History Smoking and tobacco/nicotine status: former use of tobacco/nicotine Quit status (tobacco/nicotine): has quit using Former quit date comment: over 40 years ago Alcohol intake: current Alcohol intake frequency: few times a week Substance/Drug Use: never Vitals/I&O/Wt Last Vital Signs Temp 98 F 01/24/24 05:16 Pulse 60 01/24/24 06:45 Resp 20 H 01/24/24 05:16 BP 157/82 01/24/24 06:45 Pulse Ox 97 01/24/24 06:45 Weight last 48 hrs Weight 180 lb Physical Exam 2 Eye: OTHER: Bilateral watering Neck/C-Spine: OTHER: Supple without thyromegaly Resp: OTHER: Bilateral breath sounds, clear to auscultation with normal chest wall movement Cardio: OTHER: Normal rate and rhythm without gallops or rubs. Systolic murmurs at apex consistent with mitral regurgitation history. Normal radial pulses. GI: OTHER: Soft, nondistended, nontender with bowel sounds : OTHER: Deferred Extremity: OTHER: No significant edema or cyanosis Data 01/24/24 08:24 01/24/24 05:30 A&P Assessment and plan (1) GI bleed: Patient presents with acute onset of bright red blood from rectum that occurred this morning without any more noted being since admission to ED Patient had a colonoscopy and EGD within the last few years CT Abdomen/Pelvis is consistent with diverticulosis without diverticulitis, cholithiasis, and stable solitary lower lobe pulmonary nodule with no changes since 05/2022 CBC shows anemia with hgb of 10 with normal MCV and low platelets Admit for observation Give IV NS 100ml/hr Place on clear liquid diet Avoid GI bleed inducing drugs such as NSAIDs or Aspirin CBC and CMP tomorrow Evaluate for possible need of pill endoscopy outpatient (2) Anemia: Patient has anemia with Hgb of 10 with normal MCV and low platelets, this finding is not new as patient has had anemia for at least 1 year now. Perform iron studies to determine the need for supplementation Monitor for additional acute blood loss and need to transfusion CBC tomorrow (3) Hypertension: Patient has history of HTN Received one dose of clonidine 0.2mg po in the ED BP has remained in 150s-160s/80-90s Start losartan po daily Qualifiers: Hypertension type: essential hypertension Qualified Code(s): I10 - Essential (primary) hypertension Plan Patient has a history of PE, but with current GI bleed, do not give any anticoagulants or aspirin CT Abdomen/Pelvis shows cholithiasis, f/u outpatient for need of cholecystectomy Full code Coding Level of Care Code 49538 Diagnoses GI bleed K92.2 Anemia D64.9 Essential hypertension I10 Hypertension type: essential hypertension Time Spent (min) 47 Documented by User: Elie Rosario MD 01/24/24 10:58 Providers/Chief Complaint 2 Admitting Physician: Elie Rosario MD, hospitalist Chief Complaint: bleeding from rectum History of Present Illness Moiz Hernandez is a 88 year old male with PMH of TAVR, Mitral valve repair, HTN, GERD, history of PE, history GI ulcers, and history of diverticulitis, represents for bleeding from rectum. Patient reports that he woke up around 3:30am and found a small pool on blood on the bed. Patient went to the shower to clean up and experienced an episode of rapid, nonpainful burst of a quart of bright red blood from his rectal without voluntary straining, lose of consciousness, or dizziness. Patient states he has not experienced this amount of blood from rectum before. Patient denies chest pain, SOB, headache, lightheadedness, vision changes, fever, diarrhea, constipation, Nausea, vomiting, abdominal or rectal pain. Patient is not on aspirin or anticoagulants. Patient reports a previous extensive workup for anemia, with upper and lower endoscopy. He has not had a recent endoscopy in the last year but did have a colonoscopy last year. It was recommended he have a pill endoscopy but he never completed this. He cannot tell me confidently his baseline hemoglobin in the last 6 months. Medications/Allergies Home Medications Medication Instructions Recorded Confirmed Last Taken Type blood sugar diagnostic (Contour #50 ea 05/18/22 01/24/24 Unknown Rx Next Test Strips) acetaminophen 325 mg tablet 325 mg PO QID PRN Pain 01/24/24 01/24/24 Unknown History (Tylenol) fluticasone propionate 50 1 spray intranasal BID PRN 01/24/24 01/24/24 Unknown History mcg/actuation nasal allergies spray,suspension (Flonase Allergy Relief) losartan 100 mg tablet 100 mg PO DAILY 01/24/24 01/24/24 01/23/24 History prednisone 5 mg tablet 5 mg PO DAILY 01/24/24 01/24/24 01/23/24 History tamsulosin 0.4 mg capsule 0.4 mg PO DAILY 01/24/24 01/24/24 01/23/24 History trazodone 100 mg tablet 100 mg PO DAILY PRN sleep 01/24/24 01/24/24 Unknown History Allergies Allergy/AdvReac Type Severity Reaction Status Date / Time No Known Allergies Allergy Verified 01/03/23 16:00 PFSH Acute 2 PFSH: Medical History History of transcatheter aortic valve replacement (TAVR) History of colon polyps Impairment of balance Sleeplessness Left inguinal hernia Urinary hesitancy Nocturia more than twice per night Change in stool habits Abdominal discomfort Hx of basal cell carcinoma Allergic rhinitis Chronic neck pain Type 2 diabetes mellitus Diet managed Chronic anticoagulation INR goal 2-3 Hx pulmonary embolism Hypertension Surgical History History of inguinal hernia repair History of mitral valve repair History of colonoscopy History of esophagogastroduodenoscopy Hx of cataract surgery Family History Other CAD (coronary artery disease) Cancer Diabetes Heart attack Hyperlipidemia Hypertension Rheumatoid arthritis Stroke Denies family history of Lupus Chronic kidney disease (CKD) Social History Smoking and tobacco/nicotine status: former use of tobacco/nicotine Quit status (tobacco/nicotine): has quit using Former quit date comment: over 40 years ago Alcohol intake: current Alcohol intake frequency: few times a week Substance/Drug Use: never Physical Exam 2 : OTHER: Deferred I was not able to do an external anal exam at time of interview, but will go back and do so when patient arrives on the floor. Data 01/24/24 08:24 01/24/24 05:30 Other Labs: INR is normal LFTs are normal Albumin and calcium is normal CT abdomen pelvis which I reviewed demonstrates diverticulosis, cholelithiasis. No diverticulitis. Liver cyst and atherosclerotic disease is also noted A&P Assessment and plan (1) GI bleed: History is consistent with a lower GI bleed. Most common would be diverticular bleed followed by AVM in this patient. He had a colonoscopy last year so malignancy is thought less likely. Patient presents with acute onset of bright red blood from rectum that occurred this morning without any more noted being since admission to ED Patient had a colonoscopy and EGD within the last few years CT Abdomen/Pelvis is consistent with diverticulosis without diverticulitis, cholithiasis, and stable solitary lower lobe pulmonary nodule with no changes since 05/2022 CBC shows anemia with hgb of 10 with normal MCV and low platelets Admit for observation Give IV NS 100ml/hr Place on clear liquid diet Serial hemoglobin testing Avoid GI bleed inducing drugs such as NSAIDs or Aspirin CBC and CMP tomorrow Evaluate for possible need of pill endoscopy outpatient Zosyn empirically (2) Anemia: (3) Hypertension: Qualifiers: Hypertension type: essential hypertension Qualified Code(s): I10 - Essential (primary) hypertension Attestations 2 Medical Necessity Statement*: Will need less than 2 midnight stay for evaluation and treatment of GI bleeding, likely lower with need for close follow-up of hemoglobin and assessment of stability. Diagnoses GI bleed K92.2 Anemia D64.9 Essential hypertension I10 Hypertension type: essential hypertension Time Spent (min) 47
[2024-01-24] MEDS: metroNIDAZOLE IV 500 MG/100 ML PREMIX 100 MG IV (10:43)
[2024-01-24 11:12] LABS: Ferritin 416 ng/mL (30-400); Iron 53 ug/dL (59-158); Percent Saturation 21.2 % (20-50); Total Iron Binding Capacity 249 mcg/dl; Unsaturated Iron Binding 196 ug/dL (112-347)
[2024-01-24 12:26] LABS: Hematocrit 35.5 % (37-53)
[2024-01-24] MEDS: sodium chloride 0.9% 1,000 ML 75 ML IV (12:58)
[2024-01-24] MEDS: pantoprazole 40 mg SDV IVP ×2 (12:58→23:23)
[2024-01-24] MEDS: piperacillin-tazobactam 3.375 GM in sodium chloride 0.9% (plus) 50 ML IV ×2 (12:58→20:26)
--- NOTE | 2024-01-24 14:13 | PC.NURSE ---
Notified Dr. Rosario of increased BP, one time dose of Losartan 100mg ordered.
[2024-01-24] MEDS: losartan 50 mg Tablet 100 MG PO (14:51)
[2024-01-24 17:55] LABS: Hematocrit 33.7 % (37-53)
--- NOTE | 2024-01-24 18:14 | PC.NURSE ---
Pt up and down out of bed multiple times to go to restroom, for this reason, pt not on SCDs.
[2024-01-24] MEDS: trazodone 100 mg Tablet PO (22:22)
[2024-01-24 23:32] LABS: Hematocrit 31.5 % (37-53)
[2024-01-25] VITALS: BP 160/83; PULSE 60; RESP 14; TEMP 36.4; O2SAT 97
[2024-01-25] MEDS: sodium chloride 0.9% 1,000 ML 75 ML IV (01:46)
[2024-01-25 03:41] LABS: Basophils % 0.3 %; Eosinophils # 0.1 10^3/uL (0.0-0.8); Eosinophils % 1.5 %; Hematocrit 32.8 % (37-53); Lymphocytes # 0.5 10^3/uL (0.8-4.8); Lymphocytes % 15.6 %; Mean Corpuscular HGB Conc 31.4 g/dL (30-55); Mean Corpuscular Hemoglobin 28.1 pg (27-33); Mean Corpuscular Volume 89.6 fl (82-101); Mean Platelet Volume 10.3 fL (7.4-10.4); Monocytes # 0.3 10^3/uL (0.2-0.9); Neutrophils # 2.45 10^3/uL (1.8-7.7); Nucleated Red Blood Cells % 0 %; Platelet Count 129 10^3/cmm (157-399); Red Blood Count 3.66 10^6/uL (3.85-5.65); Red Cell Distribution Width 15.9 % (12.1-15.1)
[2024-01-25 04:00] VITALS: BP 170/83; PULSE 60; RESP 13; TEMP 36.6; O2SAT 97
[2024-01-25 04:07] LABS: Alanine Aminotransferase 24 U/L (0-41); Albumin Level 3.1 g/dL (3.5-5.2); Alkaline Phosphatase 96 U/L (40-130); Anion Gap 11.9 (5-19); Aspartate Amino Transferase 26 U/L (0-40); Blood Urea Nitrogen 20 mg/dL (8-23); Calcium 8.1 mg/dL (8.5-10.5); Carbon Dioxide 23 mmol/L (22-29); Chloride 110 mmol/L (98-107); Creatinine Clr Calc Pharmacy 63.5541; Globulin 4.4 g/dL (1.3-4.6); Glucose 88 mg/dL (65-115); Osmolality Calculated 294 mOsm/kg (285-295); Potassium 3.9 mmol/L (3.5-5.1); Sodium 141 mmol/L (136-145); Total Bilirubin 0.8 mg/dL (0.15-1.2); Total Protein 7.5 g/dL (6.6-8.7)
[2024-01-25] MEDS: piperacillin-tazobactam 3.375 GM in sodium chloride 0.9% (plus) 50 ML IV ×2 (04:09→11:38)
[2024-01-25 08:00] VITALS: BP 178/81; PULSE 60; RESP 16; TEMP 36.4; O2SAT 97
[2024-01-25 08:58] VITALS: BP 178/81
[2024-01-25] MEDS: losartan 50 mg Tablet 100 MG PO (08:58)
[2024-01-25] MEDS: predniSONE 5 mg Tablet PO (08:58)
[2024-01-25] MEDS: tamsulosin 0.4 mg Capsule PO (08:58)
[2024-01-25] MEDS: amlodipine 5 mg Tablet PO (08:58)
--- NOTE | 2024-01-25 10:55 | P.DS_ITS ---
Discharge Providers Date of Admission: 01/24/24 09:50 Date of Discharge: January 25, 2024 Attending Provider at Admission: Elie Rosario MD Attending Provider at Discharge: Dov Briggs MD Primary Care Provider: Srinivasa Anderson MD Diagnoses at Discharge Discharge Diagnosis (1) GI bleed: Status: Acute (2) Anemia: Status: Acute (3) Hypertension: Status: Acute Qualifiers: Hypertension type: essential hypertension Qualified Code(s): I10 - Essential (primary) hypertension Reason for Visit Reason for Visit: bleeding from rectum Hospital Course Hospital Course This is a 88-year-old male with a past medical history of TAVR, mitral valve repair, hypertension, GERD, history of PE, history of diverticulitis, history of GI ulcers, who presents [facility] for bright red blood per rectum Patient was admitted to [facility] for concerns for lower GI bleed, bright red blood per rectum, likely diverticular bleed, was monitored as inpatient, no bloody or black stools reported, no hemodynamic compromise, also concerns for diverticulitis managed on broad-spectrum antibacterial P, IV fluids CT scan as below CT/CT abdomen pelvis w con* [id number] IMPRESSION: 1. Diverticulosis without secondary evidence of acute diverticulitis. Multiple radiodense foci within the colon primarily within the diverticuli. Please note that these cannot be fully differentiated from hemorrhage, if there is concern for ongoing hemorrhage would recommend consideration for formal pre and post-contrast GI bleeding CT scan or nuclear GI bleeding scan. 2. Cholelithiasis without secondary evidence of acute cholecystitis. Stable 6 mm right lower lobe pulmonary nodule as this is stable from 06/02/2022, it fulfills the relevant Fleischner guidelines which are given below for reference: For patients at low risk (minimal or absent history of smoking and of other known risk factors), recommend CT Chest at 6-12 months, then consider CT Chest at 18-24 months. For patients at high risk (history of smoking or of other known risk factors), recommend CT Chest at 6-12 months, then CT Chest at 18-24 months. Please note that these recommendations do not apply to lung cancer screening, patients with immunosuppression, or patients with known primary cancer. (Reference: Drew). 4. Please see above additional comments. References: Drew Ponce, et al. Guidelines for Management of Incidental Pulmonary Nodules Detected on CT Images: From the Fleischner Society 2017. Radiology. 2017;284(1):228-243. -Patient was seen the morning of 01/25/2024, patient was adamant about going home, I discussed my concerns of him going home early, risk of worsening GI bleed, worsening diverticulitis, morbidity and mortality associated, but was adamant that he was going to go home today, as he could monitor himself at home -On examination he had good bowel sounds in all 4 quadrants, no guarding, rebound, rigidity, no significant abdominal tenderness, no nausea, vomiting, but has not had a bowel movement as of yet, but no blood or black stools reported -On discharge Augmentin for 10 days, GI soft diet, hydrate well, follow-up with general surgery in 2 weeks -Patient was advised if he were to have a lack of stooling over the next 48 hours come back to emergency room if any worsening abdominal pain, bloody stools go to the emergency room - I did also discharge him on MiraLAX to be used as needed if he remains constipated until tomorrow -Patient was also found to have cholelithiasis, no evidence of cholecystitis, no right upper quadrant pain, monitor -Also has a pulmonary nodule, which needs to be followed through primary care as outpatient Physical Exam Const: COMMON NORMALS: no acute distress and patient oriented x3 Resp: COMMON NORMALS: normal respiratory effort, No retractions, No use of accessory muscles and clear to auscultation bilaterally AUSCULTATION: clear to auscultation bilaterally Cardio: COMMON NORMALS: regular rate, regular rhythm, S1 normal heart sound present and S2 normal heart sound present RATE: regular rate RHYTHM: regular rhythm HEART SOUNDS: S1 normal heart sound present and S2 normal heart sound present GI: COMMON NORMALS: Normal to inspection, nondistended, normoactive bowel sounds present and non-tender Extremity: COMMON NORMALS: no pedal edema Neuro: COMMON NORMALS: patient oriented x3 Psych: COMMON NORMALS: mental status grossly normal Discharge Data Studies Completed and Pending Completed Studies During Hospitalization Category Date Time Status CT abdomen pelvis w con* [id number] Stat Cat Scan 01/24/24 05:42 Completed Radiology Impressions Abdomen/Pelvis CT 01/24/24 05:42 IMPRESSION: 1. Diverticulosis without secondary evidence of acute diverticulitis. Multiple radiodense foci within the colon primarily within the diverticuli. Please note that these cannot be fully differentiated from hemorrhage, if there is concern for ongoing hemorrhage would recommend consideration for formal pre and post-contrast GI bleeding CT scan or nuclear GI bleeding scan. 2. Cholelithiasis without secondary evidence of acute cholecystitis. Stable 6 mm right lower lobe pulmonary nodule as this is stable from 06/02/2022, it fulfills the relevant Fleischner guidelines which are given below for reference: For patients at low risk (minimal or absent history of smoking and of other known risk factors), recommend CT Chest at 6-12 months, then consider CT Chest at 18-24 months. For patients at high risk (history of smoking or of other known risk factors), recommend CT Chest at 6-12 months, then CT Chest at 18-24 months. Please note that these recommendations do not apply to lung cancer screening, patients with immunosuppression, or patients with known primary cancer. (Reference: Drew). 4. Please see above additional comments. References: Drew Ponec, et al. Guidelines for Management of Incidental Pulmonary Nodules Detected on CT Images: From the Fleischner Society 2017. Radiology. 2017;284(1):228-243. . Laboratory Results WBC 3.40 10^3/uL (3.29-11.43) 01/25/24 02:55 RBC 3.66 10^6/uL (3.85-5.65) L 01/25/24 02:55 Hgb 10.30 g/dL (11.27-16.99) L 01/25/24 02:55 Hct 32.8 % (37-53) L 01/25/24 02:55 MCV 89.6 fl (82-101) 01/25/24 02:55 MCH 28.1 pg (27-33) 01/25/24 02:55 MCHC 31.4 g/dL (30-55) 01/25/24 02:55 RDW 15.9 % (12.1-15.1) H 01/25/24 02:55 Plt Count 129 10^3/cmm (157-399) L 01/25/24 02:55 MPV 10.3 fL (7.4-10.4) 01/25/24 02:55 Neut % (Auto) 72.0 % 01/25/24 02:55 Lymph % (Auto) 15.6 % 01/25/24 02:55 Major % (Auto) 10.0 % 01/25/24 02:55 Eos % (Auto) 1.5 % 01/25/24 02:55 Baso % (Auto) 0.3 % 01/25/24 02:55 Neut # (Auto) 2.45 10^3/uL (1.8-7.7) 01/25/24 02:55 Lymph # (Auto) 0.5 10^3/uL (0.8-4.8) L 01/25/24 02:55 Major # (Auto) 0.3 10^3/uL (0.2-0.9) 01/25/24 02:55 Eos # (Auto) 0.1 10^3/uL (0.0-0.8) 01/25/24 02:55 Baso # (Auto) 0.0 10^3/uL (0.0-0.1) 01/25/24 02:55 Nucleated RBC % (auto) 0 % 01/25/24 02:55 Nucleated RBCs # 0.0 /100WBC 01/25/24 02:55 PT 15.50 SECONDS (12.1-14.9) H 01/24/24 05:30 INR 1.19 (0.8-1.2) 01/24/24 05:30 Sodium 141 mmol/L (136-145) 01/25/24 02:55 Potassium 3.9 mmol/L (3.5-5.1) 01/25/24 02:55 Chloride 110 mmol/L (98-107) H 01/25/24 02:55 Carbon Dioxide 23 mmol/L (22-29) 01/25/24 02:55 Anion Gap 11.9 (5-19) 01/25/24 02:55 BUN 20 mg/dL (8-23) 01/25/24 02:55 Creatinine 1.0 mg/dL (0.7-1.2) 01/25/24 02:55 GFR Calculation Not Reportable 01/25/24 02:55 Glucose 88 mg/dL (65-115) 01/25/24 02:55 Calculated Osmolality 294 mOsm/kg (285-295) 01/25/24 02:55 Calcium 8.1 mg/dL (8.5-10.5) L 01/25/24 02:55 Iron 53 ug/dL (59-158) L 01/24/24 05:30 TIBC 249 mcg/dl 01/24/24 05:30 % Saturation 21.2 % (20-50) 01/24/24 05:30 Unsat Iron Binding 196 ug/dL (112-347) 01/24/24 05:30 Ferritin 416 ng/mL (30-400) H 01/24/24 05:30 Total Bilirubin 0.8 mg/dL (0.15-1.2) 01/25/24 02:55 AST 26 U/L (0-40) 01/25/24 02:55 ALT 24 U/L (0-41) 01/25/24 02:55 Alkaline Phosphatase 96 U/L (40-130) 01/25/24 02:55 Total Protein 7.5 g/dL (6.6-8.7) 01/25/24 02:55 Albumin 3.1 g/dL (3.5-5.2) L 01/25/24 02:55 Globulin 4.4 g/dL (1.3-4.6) 01/25/24 02:55 Vitals Last Vital Signs Temp 97.6 F 01/25/24 08:00 Pulse 60 01/25/24 08:00 Resp 16 01/25/24 08:00 BP 178/81 01/25/24 08:58 Pulse Ox 97 01/25/24 08:00 O2 Del Method Room Air 01/25/24 08:00 Discharge Plan Discharge Patient Disposition: Home Condition: Stable Prescriptions: New amlodipine 5 mg Tablet 5 mg PO DAILY 30 Days Qty: 30 0RF polyethylene glycol 3350 [Miralax] 17 gram powder in packet 17 g PO DAILY PRN (Reason: constipation) 30 Days Qty: 30 0RF amoxicillin-pot clavulanate 875-125 mg tablet 1 tab PO BID 10 Days Qty: 20 0RF Continued (DME) Contour Next Test Strips Strip See Rx Instructions .Route Qty: 50 11RF Rx Instructions: use to test blood sugar once daily prednisone 5 mg tablet 5 mg PO DAILY tamsulosin 0.4 mg capsule 0.4 mg PO DAILY trazodone 100 mg tablet 100 mg PO DAILY PRN (Reason: sleep ) losartan 100 mg tablet 100 mg PO DAILY fluticasone propionate [Flonase Allergy Relief] 50 mcg/actuation spray,suspens ion 1 spray intranasal BID PRN (Reason: allergies) Rx Instructions: administer into each nostril acetaminophen [Tylenol] 325 mg Tablet 325 mg PO QID PRN (Reason: Pain) Discharge Orders: Discharge Order (Routine); Ordered 01/25/24 Ordered By: Dov Briggs Referrals: Antonio Valdez MD [Physician] - 1 week Srinivasa Anderson MD [Primary Care Provider] - 1-3 days Discharge Diet: GI Soft Discharge Activity: Resume usual activity Patient Instructions: GI (Gastrointestinal) Soft Diet (ED), Opioid Safety Activity Restrictions/Additional Instructions: - Please avoid any NSAIDs -Please monitor for bowel movements -If you have any bloody and black stools go to emergency room -Please take antibiotics as prescribed -If you have any worsening abdominal pain, or bloody stools go to the emergency room -Adhere to a GI soft diet for the next 2 weeks, then advance to a high-fiber diet Discharge Attestations Time Spent in Discharge Care*: greater than 30 min Quality Metrics Clinical Quality Measures [ No reported AMI, CVA or VTE this stay] Coding Level of Care Code 06055 Total time (in minutes) for Discharge: 45 Diagnoses GI bleed K92.2 Anemia D64.9 Essential hypertension I10 Hypertension type: essential hypertension
[2024-01-25] MEDS: pantoprazole 40 mg SDV IVP (11:38)
[2024-01-25 11:54] VITALS: BP 183/88; PULSE 79; RESP 16; TEMP 36.4; O2SAT 97
[2024-01-25 14:18] VITALS: BP 183/88; PULSE 79; RESP 16; TEMP 36.4; O2SAT 97
== END 2024-01-25 14:14 | disposition home or self-care (01) ==
LOC: ER 06:13 → MEDSURG 09:51
PROVIDERS: Emergency Medicine; Admitting Provider Internal Medicine; Emergency Provider Family Medicine; PCP Family Medicine; Visit Provider Family Medicine
DX: K92.2 Gastrointestinal hemorrhage, unspecified (principal); I10 Essential (primary) hypertension; D64.9 Anemia, unspecified; K21.9 Gastro-esophageal reflux disease without esophagitis; Z95.2 Presence of prosthetic heart valve; Z86.711 Personal history of pulmonary embolism; Z79.899 Other long term (current) drug therapy; Z86.0100 Personal history of colon polyps, unspecified; E11.9 Type 2 diabetes mellitus without complications; Z87.891 Personal history of nicotine dependence; Z85.828 Personal history of other malignant neoplasm of skin; R91.1 Solitary pulmonary nodule; K80.20 Calculus of gallbladder without cholecystitis without obstruction; R29.6 Repeated falls; I48.91 Unspecified atrial fibrillation
CPT/HCPCS: 36415; 74177; 80053; 82728; 83540; 83550; 85014; 85018; 85025; 85610; 96365; 96367; 96375; 99285; G0378; J0744; J2470; J2543; J3490; J7030; J7512

== ENCOUNTER → 2024-01-30 14:07 | Outpatient (BNVA) | payer MEDICARE, SELFPAY | PROVIDERS: PCP Family Medicine; Visit Provider Student in an Organized Health Care Education/Training Program | DX: Z09 Encounter for follow-up examination after completed treatment for conditions other than malignant neoplasm (principal) | CPT/HCPCS: 99204; 99214 ==

== ENCOUNTER 2024-03-17 09:07 | Emergency (ER) | payer MEDICARE, SELFPAY ==
--- NOTE | 2024-03-17 09:08 | XRR_ITS ---
PROCEDURE INFORMATION: Exam: XR Abdomen Exam date and time: 03/17/2024 9:27 AM Age: 88 years old Clinical indication: Constipation TECHNIQUE: Imaging protocol: Radiologic exam of the abdomen. Views: Frontal supine view of the abdomen. 1 View. COMPARISON: CT abdomen pelvis w con* [id number] 01/24/2024 6:13 AM FINDINGS: Gastrointestinal tract: No dilated loops of large or small bowel is appreciated. There is a moderate amount of stool within the colon. No pathologic calcifications are noted. Bones/joints: Unremarkable. XR/XR KUB [id number] IMPRESSION: 1. Fecal stasis.
[2024-03-17 09:18] VITALS: BP 165/79; PULSE 78; RESP 18; TEMP 36.7; O2SAT 99; BMI 21.2
[2024-03-17 09:42] VITALS: BP 140/104; PULSE 92; O2SAT 100
--- NOTE | 2024-03-17 09:57 | ED_ITS ---
HPI - Abdominal Pain General: Chief Complaint: Abdominal Pain Stated Complaint: 1wk since bowl movement Time Seen by Provider: 03/17/24 09:11 Source: patient Mode of arrival: ambulatory Limitations: no limitations History of Present Illness: Patient is a nice 88-year-old male who presents to ED today with complaint of constipation. He states this has been a ongoing problem but can normally alleviate his bowels at home. He states he has not had a bowel movement a week. He is not having any abdominal pain. He states he is not had much of an appetite stating I do not want to put anything in if nothing is coming out . He is still passing flatulence. No vomiting. He arrives in no acute distress with stable vital signs. Tried a suppository at home with no relief. MD elicited complaint: other (constipation) Onset (ago): day(s) Pain Consistency: other (no abdominal pain) Radiation: none Migration to: no migration Exacerbating factors: nothing Relieving factors: nothing Associated Symptoms: Reports no associated symptoms and constipation; Denies belching, dysuria, fever(s), hematochezia, fecal incontinence, melena, nausea and vomiting Related Data Home Medications Medication Instructions Recorded Confirmed acetaminophen 325 mg tablet 325 mg PO QID PRN Pain 01/24/24 03/17/24 (Tylenol) fluticasone propionate 50 1 spray intranasal BID PRN 01/24/24 03/17/24 mcg/actuation nasal allergies spray,suspension (Flonase Allergy Relief) losartan 100 mg tablet 100 mg PO DAILY 01/24/24 03/17/24 prednisone 5 mg tablet 5 mg PO DAILY 01/24/24 03/17/24 tamsulosin 0.4 mg capsule 0.4 mg PO DAILY 01/24/24 03/17/24 trazodone 100 mg tablet 100 mg PO DAILY PRN sleep 01/24/24 03/17/24 amlodipine 10 mg tablet 10 mg PO DAILY 03/17/24 03/17/24 furosemide 40 mg tablet 80 mg PO DAILY 03/17/24 03/17/24 Previous Rx's Medication Instructions Recorded blood sugar diagnostic (Contour #50 ea 05/18/22 Next Test Strips) Allergies Allergy/AdvReac Type Severity Reaction Status Date / Time No Known Allergies Allergy Verified 01/30/24 14:09 Review of Systems Const: Denies: fever(s) Card: Denies: chest pain Resp: Denies: dyspnea GI: Reports: constipation; Denies: abdominal pain, nausea, vomiting, belching, fecal incontinence, hematochezia or melena : Denies: flank pain or dysuria Musc: Denies: back pain Neuro: Denies: headache(s) or dizziness PFS ED PFSH: Medical History History of transcatheter aortic valve replacement (TAVR) History of colon polyps Impairment of balance Sleeplessness Left inguinal hernia Urinary hesitancy Nocturia more than twice per night Change in stool habits Abdominal discomfort Hx of basal cell carcinoma Allergic rhinitis Chronic neck pain Type 2 diabetes mellitus Diet managed Chronic anticoagulation INR goal 2-3 Hx pulmonary embolism Hypertension Surgical History History of inguinal hernia repair History of mitral valve repair History of colonoscopy History of esophagogastroduodenoscopy Hx of cataract surgery Family History Other CAD (coronary artery disease) Cancer Diabetes Heart attack Hyperlipidemia Hypertension Rheumatoid arthritis Stroke Denies family history of Lupus Chronic kidney disease (CKD) Social History Smoking and tobacco/nicotine status: former use of tobacco/nicotine Quit status (tobacco/nicotine): has quit using Former quit date comment: over 40 years ago Alcohol intake: current Alcohol intake frequency: few times a week Substance/Drug Use: never Physical Exam Const: COMMON NORMALS: no acute distress, average body habitus, patient oriented x3, no limitations, healthy appearing, alert and well nourished Eye: COMMON NORMALS: no scleral icterus Resp: COMMON NORMALS: normal respiratory effort and clear to auscultation bilaterally AUSCULTATION: clear to auscultation bilaterally Cardio: COMMON NORMALS: regular rate and regular rhythm RATE: regular rate RHYTHM: regular rhythm GI: COMMON NORMALS: Normal to inspection, nondistended, normoactive bowel sounds present, Soft to palpation, non-tender, No hepatosplenomegaly present and no masses INSPECTION: Yes normal to inspection PALPATION: Yes Soft to palpation and Yes No hepatosplenomegaly present : COMMON NORMALS: Yes no CVA tenderness BLADDER/KIDNEY EXAM: Yes no CVA tenderness Back/Pelvis: COMMON NORMALS: no CVA tenderness Neuro: COMMON NORMALS: patient oriented x3 SENSORIUM/ORIENTATION: Yes alert Course Vital Signs: Vital signs: Vital Signs Temperature 98.1 F 03/17/24 09:18 Pulse Rate 92 03/17/24 09:42 Respiratory Rate 18 03/17/24 09:18 Blood Pressure 140/104 03/17/24 09:42 Pulse Oximetry 100 03/17/24 09:42 Oxygen Delivery Me thod Room Air 03/17/24 09:42 MDM - Abdominal Pain Medical Decision Making Patient has no complaints of abdominal pain. KUB XR showing fecal stasis. He was treated with a Fleet enema here with decent results. Patient feels com fortable going home. He was given a mixture of milk of magnesia, mineral oil, lactulose to take when he gets home. Further bowel evacuation instructions were given. Return to ED precautions discussed. Medical Records I reviewed the patient's medical records. Lab Data Labs/Radiology: Radiology Impressions KUB X-Ray 03/17/24 09:08 IMPRESSION: 1. Fecal stasis. All radiology interpretation(s) finalized by discharge Discharge Plan Discharge Patient Disposition: Home Clinical Impression: Constipation Qualifiers: Constipation type: unspecified constipation type Qualified Code(s): K59.00 - Constipation, unspecified Condition: Stable Prescriptions: No Action (DME) Contour Next Test Strips Strip See Rx Instructions .Route Qty: 50 11RF Rx Instructions: use to test blood sugar once daily prednisone 5 mg tablet 5 mg PO DAILY tamsulosin 0.4 mg capsule 0.4 mg PO DAILY trazodone 100 mg tablet 100 mg PO DAILY PRN (Reason: sleep ) losartan 100 mg tablet 100 mg PO DAILY fluticasone propionate [Flonase Allergy Relief] 50 mcg/actuation spray,suspension 1 spray intranasal BID PRN (Reason: allergies) Rx Instructions: administer into each nostril acetaminophen [Tylenol] 325 mg Tablet 325 mg PO QID PRN (Reason: Pain) furosemide 40 mg tablet 80 mg PO DAILY amlodipine 10 mg tablet 10 mg PO DAILY Discharge Orders: Discharge ED (Routine); Ordered 03/17/24 Ordered By: Shira Rivera Referrals: Srinivasa Anderson MD [Primary Care Provider] - Patient Instructions: Constipation (DC) Activity Restrictions/Additional Instructions: Your x-ray today did confirm constipation. You were given an enema with some degree of relief here. We have mixed up an oral solution for you to drink when you get home. Following this you need to begin taking a capful of MiraLAX twice a daily over the next week. You also need to begin taking Colace twice daily as well for the next week to help continue further evacuation of your bowels. You may follow-up with your primary care provider. You may return to the emergency department for onset of severe abdominal pain, inability to pass stool or gas, repetitive episodes of vomiting, fevers, or any other concerns you may have. Coding Level of Care Code ED [place] Program Coordinator for Steffany Redmond
[2024-03-17] MEDS: Fleet Enema 133 mL Enema PR (10:44)
[2024-03-17] MEDS: magnesium hydroxide 30 mL UDC PO (11:49)
[2024-03-17] MEDS: lactulose oral liq 20 gm/30 mL UDC 30 GM PO (11:49)
[2024-03-17] MEDS: mineral oil 30 mL UDC PO (11:49)
[2024-03-17 11:53] VITALS: BP 125/59; PULSE 64; O2SAT 98
== END 2024-03-17 11:54 | disposition home or self-care (01) ==
PROVIDERS: Emergency Provider Physician Assistant; PCP Family Medicine
DX: K59.00 Constipation, unspecified (principal); Z87.891 Personal history of nicotine dependence; E11.9 Type 2 diabetes mellitus without complications; I10 Essential (primary) hypertension; Z86.711 Personal history of pulmonary embolism
CPT/HCPCS: 74018; 99283

== ENCOUNTER 2024-03-22 09:44 | Emergency (ER) | payer MEDICARE, SELFPAY ==
[2024-03-22 10:05] VITALS: BP 139/73; PULSE 74; RESP 16; TEMP 36.6; O2SAT 98; BMI 21.2
[2024-03-22 11:30] LABS: Covid PCR NEGATIVE (Negative); Influenza A NEGATIVE (Negative); Influenza B NEGATIVE (Negative); Respiratory Syncytial Virus Ce NEGATIVE (Negative)
[2024-03-22 12:09] VITALS: BP 144/84; PULSE 60; O2SAT 98
--- NOTE | 2024-03-22 12:20 | XRR_ITS ---
PROCEDURE INFORMATION: Exam: XR Chest Exam date and time: 03/22/2024 1:24 PM Age: 88 years old Clinical indication: Cough TECHNIQUE: Imaging protocol: Radiologic exam of the chest. Views: 2 views. COMPARISON: [place] [id number] 06/02/2022 8:15 AM FINDINGS: Lungs: No pulmonary consolidation. Pleural spaces: No pneumothorax or pleural effusion. Heart/Mediastinum: Cardiomegaly. Vasculature: Postsurgical changes suggesting aortic valve repair. There is a 1.8 x 0.7 cm device overlapping a cardiac ventricle. These both appear new from prior comparison. Correlate clinically for recent prior procedure. Bones/joints: Scattered spinal degenerative changes. XR/XR chest 2V* [id number] IMPRESSION: 1. Interval aortic valve repair and small device which appears to be overlapping/within a cardiac ventricle requiring clinical correlation for recent prior procedure. 2. No evidence of acute pulmonary disease.
[2024-03-22 13:16] LABS: Basophils % 0.1 %; Eosinophils % 0.2 %; Hematocrit 38.2 % (37-53); Lymphocytes # 1.4 10^3/uL (0.8-4.8); Lymphocytes % 17.6 %; Mean Corpuscular HGB Conc 32.5 g/dL (30-55); Mean Corpuscular Hemoglobin 29.4 pg (27-33); Mean Corpuscular Volume 90.5 fl (82-101); Monocytes # 0.8 10^3/uL (0.2-0.9); Monocytes % 9.2 %; Neutrophils # 5.85 10^3/uL (1.8-7.7); Nucleated Red Blood Cells % 0 %; Platelet Count 215 10^3/cmm (157-399); Red Blood Count 4.22 10^6/uL (3.85-5.65); Red Cell Distribution Width 14.9 % (12.1-15.1); White Blood Count 8.13 10^3/uL (3.29-11.43)
[2024-03-22 13:39] LABS: Alanine Aminotransferase 30 U/L (0-41); Alkaline Phosphatase 150 U/L (40-130); Aspartate Amino Transferase 34 U/L (0-40); Blood Urea Nitrogen 28 mg/dL (8-23); Calcium 9.1 mg/dL (8.5-10.5); Carbon Dioxide 23 mmol/L (22-29); Chloride 101 mmol/L (98-107); Creatinine Clr Calc Pharmacy 57.1579; Globulin 5.3 g/dL (1.3-4.6); Glucose 125 mg/dL (65-115); Osmolality Calculated 289 mOsm/kg (285-295); Sodium 136 mmol/L (136-145); Total Bilirubin 0.8 mg/dL (0.15-1.2); Total Protein 9.3 g/dL (6.6-8.7)
--- NOTE | 2024-03-22 13:49 | ED_ITS ---
HPI - URI/Sore Throat 2 General: Chief Complaint: Upper Respiratory Infection Stated Complaint: severe congestion Time Seen by Provider: 03/22/24 12:14 History of Present Illness: This patient is an 88 year old presenting with cough and URI symptoms. He reports symptoms for over a week, and they have now settled in his chest. He denies SOB or fever. Normal appetite. He says that his made him come in. He thinks that he needs an antibiotic. Related Data Home Medications Medication Instructions Recorded Confirmed acetaminophen 325 mg tablet 325 mg PO QID PRN Pain 01/24/24 03/17/24 (Tylenol) fluticasone propionate 50 1 spray intranasal BID PRN 01/24/24 03/17/24 mcg/actuation nasal allergies spray,suspension (Flonase Allergy Relief) losartan 100 mg tablet 100 mg PO DAILY 01/24/24 03/17/24 prednisone 5 mg tablet 5 mg PO DAILY 01/24/24 03/17/24 tamsulosin 0.4 mg capsule 0.4 mg PO DAILY 01/24/24 03/17/24 trazodone 100 mg tablet 100 mg PO DAILY PRN sleep 01/24/24 03/17/24 amlodipine 10 mg tablet 10 mg PO DAILY 03/17/24 03/17/24 furosemide 40 mg tablet 80 mg PO DAILY 03/17/24 03/17/24 Previous Rx's Medication Instructions Recorded blood sugar diagnostic (Contour #50 ea 05/18/22 Next Test Strips) azithromycin 250 mg tablet See Rx Instructions PO .COMPLEX #6 03/22/24 (Zithromax Z-Sarkis) tabs Allergies Allergy/AdvReac Type Severity Reaction Status Date / Time No Known Allergies Allergy Verified 01/30/24 14:09 [facility] ED 2 PFSH: Medical History History of transcatheter aortic valve replacement (TAVR) History of colon polyps Impairment of balance Sleeplessness Left inguinal hernia Urinary hesitancy Nocturia more than twice per night Change in stool habits Abdominal discomfort Hx of basal cell carcinoma Allergic rhinitis Chronic neck pain Type 2 diabetes mellitus Diet managed Chronic anticoagulation INR goal 2-3 Hx pulmonary embolism Hypertension Surgical History History of inguinal hernia repair History of mitral valve repair History of colonoscopy History of esophagogastroduodenoscopy Hx of cataract surgery Family History Other CAD (coronary artery disease) Cancer Diabetes Heart attack Hyperlipidemia Hypertension Rheumatoid arthritis Stroke Denies family history of Lupus Chronic kidney disease (CKD) Social History Smoking and tobacco/nicotine status: former use of tobacco/nicotine Quit status (tobacco/nicotine): has quit using Former quit date comment: over 40 years ago Alcohol intake: current Alcohol intake frequency: few times a week Substance/Drug Use: never Physical Exam 2 Const: COMMON NORMALS: no acute distress, patient oriented x3, no limitations and alert GENERAL APPEARANCE: cooperative and comfortable HENMT: HEAD & SCALP: normal to inspection FACE & SINUS: normal facial exam Eye: GENERAL EYE: appearance normal, both eyes and all related structures Neck/C-Spine: COMMON NORMALS: supple, no meningeal signs and no JVD Chest: COMMONS NORMALS: normal inspection of the chest Resp: COMMON NORMALS: normal respiratory effort, No use of accessory muscles and clear to auscultation bilaterally AUSCULTATION: clear to auscultation bilaterally Cardio: COMMON NORMALS: no JVD, regular rate, regular rhythm and No murmurs present (Cardio) RATE: regular rate RHYTHM: regular rhythm GI: COMMON NORMALS: Normal to inspection, nondistended, normoactive bowel sounds present, Soft to palpation and non-tender INSPECTION: Yes normal to inspection AUSCULTATION: Yes normoactive bowel sounds PALPATION: Yes Soft to palpation Back/Pelvis: COMMON NORMALS: thoracic and lumbar spine normal to inspection Extremity: COMMON NORMALS: normal to inspection Neuro: COMMON NORMALS: patient oriented x3, moves all extremities, no focal motor deficits and no sensory deficits noted SENSORIUM/ORIENTATION: Yes alert MENINGEAL SIGNS: Yes no meningeal signs Psych: COMMON NORMALS: mental status grossly normal, cooperative and normal affect Skin: COMMON NORMALS: no rashes or lesions noted and turgor normal GENERAL SKIN EXAM: no rashes or lesions noted and turgor normal Course 2 Vital Signs: Vital signs: Vital Signs Temperature 97.9 F 03/22/24 10:05 Pulse Rate 60 03/22/24 12:09 Respiratory Rate 16 03/22/24 10:05 Blood Pressure 144/84 03/22/24 12:09 Pulse Oximetry 98 03/22/24 12:09 Oxygen Delivery Me thod Room Air 03/22/24 12:09 MDM - URI/Sore Throat Medical Decision Making Benign physical exam. CXR without an obvious infiltrate. He has had ongoing symptoms and an antibiotic is not unreasonable. Outpatient management and close follow up with PCP. Lab Data 03/22/24 13:04 03/22/24 13:04 Radiology Impressions Chest X-Ray 03/22/24 12:20 IMPRESSION: 1. Interval aortic valve repair and small device which appears to be overlapping/within a cardiac ventricle requiring clinical correlation for recent prior procedure. 2. No evidence of acute pulmonary disease. Laboratory Results WBC 8.13 10^3/uL (3.29-11.43) 03/22/24 13:04 RBC 4.22 10^6/uL (3.85-5.65) 03/22/24 13:04 Hgb 12.40 g/dL (11.27-16.99) 03/22/24 13:04 Hct 38.2 % (37-53) 03/22/24 13:04 MCV 90.5 fl (82-101) 03/22/24 13:04 MCH 29.4 pg (27-33) 03/22/24 13:04 MCHC 32.5 g/dL (30-55) 03/22/24 13:04 RDW 14.9 % (12.1-15.1) 03/22/24 13:04 Plt Count 215 10^3/cmm (157-399) 03/22/24 13:04 MPV 10.0 fL (7.4-10.4) 03/22/24 13:04 Neut % (Auto) 72.0 % 03/22/24 13:04 Lymph % (Auto) 17.6 % 03/22/24 13:04 Webb % (Auto) 9.2 % 03/22/24 13:04 Eos % (Auto) 0.2 % 03/22/24 13:04 Baso % (Auto) 0.1 % 03/22/24 13:04 Neut # (Auto) 5.85 10^3/uL (1.8-7.7) 03/22/24 13:04 Lymph # (Auto) 1.4 10^3/uL (0.8-4.8) 03/22/24 13:04 Webb # (Auto) 0.8 10^3/uL (0.2-0.9) 03/22/24 13:04 Eos # (Auto) 0.0 10^3/uL (0.0-0.8) 03/22/24 13:04 Baso # (Auto) 0.0 10^3/uL (0.0-0.1) 03/22/24 13:04 Nucleated RBC % (auto) 0 % 03/22/24 13:04 Nucleated RBCs # 0.0 /100WBC 03/22/24 13:04 Sodium 136 mmol/L (136-145) 03/22/24 13:04 Potassium 4.0 mmol/L (3.5-5.1) 03/22/24 13:04 Chloride 101 mmol/L (98-107) 03/22/24 13:04 Carbon Dioxide 23 mmol/L (22-29) 03/22/24 13:04 Anion Gap 16.0 (5-19) 03/22/24 13:04 BUN 28 mg/dL (8-23) H 03/22/24 13:04 Creatinine 1.1 mg/dL (0.7-1.2) 03/22/24 13:04 GFR Calculation Not Reportable 03/22/24 13:04 Glucose 125 mg/dL (65-115) H 03/22/24 13:04 Calculated Osmolality 289 mOsm/kg (285-295) 03/22/24 13:04 Calcium 9.1 mg/dL (8.5-10.5) 03/22/24 13:04 Total Bilirubin 0.8 mg/dL (0.15-1.2) 03/22/24 13:04 AST 34 U/L (0-40) 03/22/24 13:04 ALT 30 U/L (0-41) 03/22/24 13:04 Alkaline Phosphatase 150 U/L (40-130) H 03/22/24 13:04 Total Protein 9.3 g/dL (6.6-8.7) H 03/22/24 13:04 Albumin 4.0 g/dL (3.5-5.2) 03/22/24 13:04 Globulin 5.3 g/dL (1.3-4.6) H 03/22/24 13:04 Coronavirus (PCR) Negative (Negative) 03/22/24 10:51 Influenza A (PCR) Negative (Negative) 03/22/24 10:51 Influenza Type B (PCR) Negative (Negative) 03/22/24 10:51 RSV (PCR) Negative (Negative) 03/22/24 10:51 All radiology interpretation(s) finalized by discharge Discharge Plan Discharge Patient Disposition: Home Clinical Impression: Bronchitis, Upper respiratory infection Condition: Stable Prescriptions: New azithromycin [Zithromax Z-Sarkis] 250 mg tablet See Rx Instructions .ROUTE .COMPLEX Qty: 6 0RF Rx Instructions: For 250 mg dose pack: take 500 mg today (day 1), then 250 mg for 4 days (days 2-5) No Action (DME) Contour Next Test Strips Strip See Rx Instructions .Route Qty: 50 11RF Rx Instructions: use to test blood sugar once daily prednisone 5 mg tablet 5 mg PO DAILY tamsulosin 0.4 mg capsule 0.4 mg PO DAILY trazodone 100 mg tablet 100 mg PO DAILY PRN (Reason: sleep ) losartan 100 mg tablet 100 mg PO DAILY fluticasone propionate [Flonase Allergy Relief] 50 mcg/actuation spray,suspension 1 spray intranasal BID PRN (Reason: allergies) Rx Instructions: administer into each nostril acetaminophen [Tylenol] 325 mg Tablet 325 mg PO QID PRN (Reason: Pain) furosemide 40 mg tablet 80 mg PO DAILY amlodipine 10 mg tablet 10 mg PO DAILY Discharge Orders: Discharge ED (Routine); Ordered 03/22/24 Ordered By: Chetna Reddy Referrals: Srinivasa Anderson MD [Primary Care Provider] - Patient Instructions: Opioid Safety, Pain Management Coding Level of Care Code ED Formula Technician for Steffany Redmond
== END 2024-03-22 14:03 | disposition home or self-care (01) ==
PROVIDERS: Emergency Medicine; Emergency Provider Emergency Medicine; PCP Family Medicine
DX: J40 Bronchitis, not specified as acute or chronic (principal); J06.9 Acute upper respiratory infection, unspecified; Z11.52 Encounter for screening for COVID-19; Z87.891 Personal history of nicotine dependence; Z85.828 Personal history of other malignant neoplasm of skin; E11.9 Type 2 diabetes mellitus without complications; I10 Essential (primary) hypertension; Z86.711 Personal history of pulmonary embolism
CPT/HCPCS: 0241U; 71046; 80053; 85025; 99284

== ENCOUNTER → 2024-04-02 14:07 | Outpatient (BNVA) | payer MEDICARE, SELFPAY | PROVIDERS: PCP Family Medicine; Visit Provider Podiatrist Foot & Ankle Surgery | DX: L60.3 Nail dystrophy (principal); G62.9 Polyneuropathy, unspecified; I73.9 Peripheral vascular disease, unspecified; M20.41 Other hammer toe(s) (acquired), right foot; M20.42 Other hammer toe(s) (acquired), left foot; L97.512 Non-pressure chronic ulcer of other part of right foot with fat layer exposed; E11.42 Type 2 diabetes mellitus with diabetic polyneuropathy; E11.621 Type 2 diabetes mellitus with foot ulcer; L84 Corns and callosities | CPT/HCPCS: 11055; 11721; 99213 ==

== ENCOUNTER → 2024-04-29 10:15 | Outpatient (BNVA) | payer MEDICARE, SELFPAY | PROVIDERS: PCP Family Medicine; Referring Provider Family Medicine; Visit Provider Nurse Practitioner Family | DX: H02.105 Unspecified ectropion of left lower eyelid (principal); L82.1 Other seborrheic keratosis; Z85.820 Personal history of malignant melanoma of skin; Z08 Encounter for follow-up examination after completed treatment for malignant neoplasm; Z85.828 Personal history of other malignant neoplasm of skin; L57.0 Actinic keratosis; D48.5 Neoplasm of uncertain behavior of skin | CPT/HCPCS: 11102; 17004; 99203 ==

== ENCOUNTER 2024-06-01 10:02 | Emergency (ER) | payer MEDICARE, SELFPAY ==
--- NOTE | 2024-06-01 10:19 | XR_ITS ---
WS: [id number] XR chest 1V portable [id number] REASON FOR EXAM: cough FINDINGS: Aortic valve stent graft. Left endobronchial occlusive device. Small left chest wall implanted cardiac device. Moderate tortuosity of the thoracic aorta. The heart is at the upper limits of normal in size. Calcified granulomatous disease bilaterally. There is blunting of the right costophrenic angle and an opacity in the right lower lung laterally which may represent atelectasis. These right chest findings were not present on previous examination of 03/22/2024. XR/XR chest 1V portable [id number] IMPRESSION: Interval change in the right lower hemithorax suggestive of right pleural effus ion and right lower lung atelectasis.
[2024-06-01 10:34] VITALS: BP 152/72; PULSE 85; RESP 20; TEMP 36.5; O2SAT 98; BMI 21.2
--- NOTE | 2024-06-01 10:55 | ECG_ITS ---
[facility] Pat Name: Moiz Hernandez Department: Room: Gender: Male Resort Host: : [id number] Requested By: Basilio Davis Order Number: [id number] [place] MD: Patricia Soto M.D. Measurements Intervals [place] Rate: 63 P: 0 DC: 0 QRS: -89 QRSD: 173 T: 91 QT: 487 QTc: 499 Interpretive Statements ELECTRONIC VENTRICULAR PACEMAKER ABNORMAL RHYTHM ECG Compared to ECG 06/02/2022 08:01:39 Atrial fibrillation no longer present ST (T wave) deviation no longer present Electronically Signed On 06-03-2024 17:59:59 CARDIOVASCULAR OPERATING ROOM NURSE by Patricia Soto M.D. [email or web address]
--- NOTE | 2024-06-01 12:46 | W.ED.URI ---
HPI - URI/Sore Throat General: Chief Complaint: Upper Respiratory Infection Stated Complaint: deep cough, thick mucas Time Seen by Provider: 06/01/24 12:38 Source: patient Mode of arrival: ambulatory Limitations: no limitations History of Present Illness: Patient is a nice 88-year-old male who presents to ED today along with his significant other for a complaint of a productive cough and congestion over the past week. He has not been running fevers. No known sick contacts. He is not a smoker. Patient feels like his phlegm is dark yellow and thick. He denies significant shortness of breath or chest pain. States he had similar symptoms a few months ago and was seen here. MD elicited complaint: cough and nasal congestion Onset (ago): week(s) Consistency: constant Severity: mild Description of mucous: yellow Able to tolerate fluids by mouth: Yes Exacerbating factors: nothing Relieving factors: nothing Associated symptoms: Reports nasal congestion; Deny abdominal pain, chills, chest pain, diarrhea, ear or mastoid pain, fever(s), headache(s), nausea, sinus pain or vomiting Treatments prior to arrival: none Related Data Home Medications ?Medication ?Instructions ?Recorded ?Confirmed acetaminophen 325 mg tablet 325 mg PO QID PRN Pain 01/24/24 04/02/24 (Tylenol) fluticasone propionate 50 1 spray intranasal BID PRN 01/24/24 04/02/24 mcg/actuation nasal allergies spray,suspension (Flonase Allergy Relief) losartan 100 mg tablet 100 mg PO DAILY 01/24/24 04/02/24 prednisone 5 mg tablet 5 mg PO DAILY 01/24/24 04/02/24 tamsulosin 0.4 mg capsule 0.4 mg PO DAILY 01/24/24 04/02/24 trazodone 100 mg tablet 100 mg PO DAILY PRN sleep 01/24/24 04/02/24 amlodipine 10 mg tablet 10 mg PO DAILY 03/17/24 04/02/24 furosemide 40 mg tablet 80 mg PO DAILY 03/17/24 04/02/24 Previous Rx's ?Medication ?Instructions ?Recorded blood sugar diagnostic (Contour #50 ea 05/18/22 Next Test Strips) azithromycin 250 mg tablet See Rx Instructions PO .COMPLEX #6 06/01/24 tabs doxycycline monohydrate 100 mg 100 mg PO Q12H 7 days #14 caps 06/01/24 capsule Allergies Allergy/AdvReac Type Severity Reaction Status Date / Time No Known Allergies Allergy Verified 04/02/24 14:20 Review of Systems Const: Denies: fever(s), chills, body aches, fatigue or malaise Eyes: Denies: change in vision, blurry vision or photophobia ENMT: Reports: throat pain, odynophagia, nasal discharge and nasal congestion; Denies: ear or mastoid pain or sinus pain Card: Denies: chest pain, palpitations, irregular heart rhythm, lightheadedness, syncope or dyspnea on exertion Resp: Reports: dyspnea, non-productive cough, change in phlegm color and chest congestion; Denies: productive cough, wheezing, pain on inspiration or hemoptysis GI: Denies: abdominal pain, nausea, vomiting, heartburn or diarrhea : Denies: difficulty urinating or dysuria Musc: Denies: neck pain, back pain or joint pain Skin/Breast: Denies: rash Neuro: Denies: headache(s), numbness in extremities, weakness in extremities, sensory changes or dizziness PFS ED PFSH: Medical History History of transcatheter aortic valve replacement (TAVR) History of colon polyps Impairment of balance Sleeplessness Left inguinal hernia Urinary hesitancy Nocturia more than twice per night Change in stool habits Abdominal discomfort Hx of basal cell carcinoma Allergic rhinitis Chronic neck pain Type 2 diabetes mellitus Diet managed Chronic anticoagulation INR goal 2-3 Hx pulmonary embolism Hypertension Surgical History History of inguinal hernia repair History of mitral valve repair History of colonoscopy History of esophagogastroduodenoscopy Hx of cataract surgery Family History Other CAD (coronary artery disease) Cancer Diabetes Heart attack Hyperlipidemia Hypertension Rheumatoid arthritis Stroke Denies family history of Lupus Chronic kidney disease (CKD) Social History Smoking and tobacco/nicotine status: never used tobacco/nicotine Quit status (tobacco/nicotine): has quit using Former quit date comment: over 40 years ago Alcohol intake: current Alcohol intake frequency: few times a week Substance/Drug Use: never Course Vital Signs: Vital signs: Vital Signs Temperature 97.7 F 06/01/24 10:34 Pulse Rate 66 06/01/24 13:09 Respiratory Rate 18 06/01/24 13:09 Blood Pressure 152/72 06/01/24 10:34 Pulse Oximetry 99 06/01/24 13:09 Oxygen Delivery Me thod Room Air 06/01/24 13:09 MDM - URI/Sore Throat Medical Decision Making Patient clinically appears well. His vital signs are stable. Results of his COVID/influenza/RSV are still pending. He does not want to stay for these results. Will contact if positive. Due to age and underlying comorbidities, we will go ahead and treat symptoms with antibiotics. Recommend follow up with PCP in 1-2 weeks if symptoms are not improving. Differential Diagnosis Likely upper respiratory infection, viral infection and bronchitis Medical Records I reviewed the patient's medical records. Lab Data I reviewed the patient's lab results. Radiology Impressions Chest X-Ray 06/01/24 10:19 IMPRESSION: Interval change in the right lower hemithorax suggestive of right pleural effusion and right lower lung atelectasis. All radiology interpretation(s) finalized by discharge Discharge Plan Discharge Patient Disposition: Home Clinical Impression: Bronchitis Condition: Stable Prescriptions: New azithromycin 250 mg tablet See Rx Instructions .ROUTE .COMPLEX Qty: 6 0RF Rx Instructions: take 500 mg today (day 1), then 250 mg for 4 days (days 2-5) doxycycline monohydrate 100 mg capsule 100 mg PO Q12H 7 Days Qty: 14 0RF No Action (DME) Contour Next Test Strips Strip See Rx Instructions .Route Qty: 50 11RF Rx Instructions: use to test blood sugar once daily prednisone 5 mg tablet 5 mg PO DAILY tamsulosin 0.4 mg capsule 0.4 mg PO DAILY trazodone 100 mg tablet 100 mg PO DAILY PRN (Reason: sleep ) losartan 100 mg tablet 100 mg PO DAILY fluticasone propionate [Flonase Allergy Relief] 50 mcg/actuation spray,suspension 1 spray intranasal BID PRN (Reason: allergies) Rx Instructions: administer into each nostril acetaminophen [Tylenol] 325 mg Tablet 325 mg PO QID PRN (Reason: Pain) furosemide 40 mg tablet 80 mg PO DAILY amlodipine 10 mg tablet 10 mg PO DAILY Discharge Orders: Discharge ED (Routine); Ordered 06/01/24 Ordered By: Shira Rivera Referrals: Srinivasa Anderson MD [Primary Care Provider] - Patient Instructions: Bronchitis (Acute) - Adult, Acute Bronchitis (ED) Print Language: French Coding Level of Care Code ED Sewer Separation Designer for Steffany Redmond
[2024-06-01 13:09] VITALS: PULSE 66; RESP 18; O2SAT 99
[2024-06-01 13:46] LABS: Covid PCR NEGATIVE (Negative); Influenza A NEGATIVE (Negative); Influenza B NEGATIVE (Negative)
[2024-06-01 13:52] LABS: Respiratory Syncytial Virus Ce POSITIVE (Negative)
[2024-06-01 14:16] VITALS: BP 145/75; PULSE 61; O2SAT 96
== END 2024-06-01 14:10 | disposition home or self-care (01) ==
PROVIDERS: Emergency Provider Physician Assistant; PCP Family Medicine
DX: J40 Bronchitis, not specified as acute or chronic (principal); Z87.891 Personal history of nicotine dependence; I10 Essential (primary) hypertension; E11.9 Type 2 diabetes mellitus without complications
CPT/HCPCS: 71045; 87637; 93005; 99284

== ENCOUNTER → 2024-06-24 08:39 | Outpatient (BNVA) | payer MEDICARE, SELFPAY | PROVIDERS: PCP Family Medicine; Visit Provider Podiatrist Foot & Ankle Surgery | DX: E11.42 Type 2 diabetes mellitus with diabetic polyneuropathy (principal); L60.3 Nail dystrophy; E11.621 Type 2 diabetes mellitus with foot ulcer; L97.512 Non-pressure chronic ulcer of other part of right foot with fat layer exposed; G62.9 Polyneuropathy, unspecified; I73.9 Peripheral vascular disease, unspecified; M20.41 Other hammer toe(s) (acquired), right foot; M20.42 Other hammer toe(s) (acquired), left foot | CPT/HCPCS: 11721; 87070; 87075; 87205; 99213 ==

== ENCOUNTER → 2024-07-07 09:25 | Outpatient (BNVA) | payer MEDICARE, SELFPAY | PROVIDERS: PCP Family Medicine; Visit Provider Podiatrist Foot & Ankle Surgery | DX: M20.41 Other hammer toe(s) (acquired), right foot (principal); M20.42 Other hammer toe(s) (acquired), left foot; E11.42 Type 2 diabetes mellitus with diabetic polyneuropathy; L60.3 Nail dystrophy; G62.9 Polyneuropathy, unspecified; I73.9 Peripheral vascular disease, unspecified; L97.512 Non-pressure chronic ulcer of other part of right foot with fat layer exposed; E11.621 Type 2 diabetes mellitus with foot ulcer | CPT/HCPCS: 28011 ==

== ENCOUNTER → 2024-07-16 09:58 | Outpatient (BNVA) | payer MEDICARE, SELFPAY | PROVIDERS: PCP Family Medicine; Visit Provider Podiatrist Foot & Ankle Surgery | DX: M20.41 Other hammer toe(s) (acquired), right foot (principal); M20.42 Other hammer toe(s) (acquired), left foot; L60.3 Nail dystrophy; E11.9 Type 2 diabetes mellitus without complications; G62.9 Polyneuropathy, unspecified; I73.9 Peripheral vascular disease, unspecified; L97.512 Non-pressure chronic ulcer of other part of right foot with fat layer exposed; E11.42 Type 2 diabetes mellitus with diabetic polyneuropathy; E11.621 Type 2 diabetes mellitus with foot ulcer | CPT/HCPCS: 99024 ==

== ENCOUNTER → 2024-08-26 08:52 | Outpatient (BNVA) | payer MEDICARE, SELFPAY | PROVIDERS: PCP Family Medicine; Visit Provider Podiatrist Foot & Ankle Surgery | DX: E11.42 Type 2 diabetes mellitus with diabetic polyneuropathy (principal); L60.3 Nail dystrophy; L84 Corns and callosities; E11.8 Type 2 diabetes mellitus with unspecified complications; M20.41 Other hammer toe(s) (acquired), right foot; M20.42 Other hammer toe(s) (acquired), left foot; G62.9 Polyneuropathy, unspecified; I73.9 Peripheral vascular disease, unspecified; E11.621 Type 2 diabetes mellitus with foot ulcer; L97.512 Non-pressure chronic ulcer of other part of right foot with fat layer exposed; G57.90 Unspecified mononeuropathy of unspecified lower limb | CPT/HCPCS: 11056; 11721; 99213 ==

== ENCOUNTER 2024-09-02 13:09 | Inpatient (IN) | payer MEDICARE, SELFPAY ==
[2024-09-02] VITALS (9 sets, daily range): BP systolic 117–127; BP diastolic 49–96; PULSE 60–94; RESP 14–27; TEMP 36.9–39.3; O2SAT 90–93; BMI 20.7
--- NOTE | 2024-09-02 13:29 | ECG_ITS ---
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
--- NOTE | 2024-09-02 13:29 | XR_ITS ---
WS: [id number] Exam: XR chest 2V* [id number] Date/Time of Exam: 09/02/2024 2:01 PM Reason For Exam: shortness of breath x 3 weeks Comparison 06/01/2024. The lungs are fully expanded and clear. Heart size top limits normal. Signs of previous cardiac valve replacement. Chronic changes in the RIGHT base. Bony structures are intact. XR/XR chest 2V* [id number] IMPRESSION: 1. No acute process noted. 2. Chronic RIGHT basilar changes noted.
--- NOTE | 2024-09-02 13:44 | W.ED.URI ---
HPI - URI/Sore Throat General: Chief Complaint: Upper Respiratory Infection Stated Complaint: high fever, green mucus Time Seen by Provider: 09/02/24 13:12 History of Present Illness: Patient is a 89-year-old gentleman with history of hypertension, RA, on Prednisone 5 mg, TAVR, secondary DM, presented to the ED due to 2-3 weeks of cough, fever, green mucus. Patient is having coughing fits associated with incontinence, and chest tightness. Denies specific chest discomfort. Shortness of breath is worse with exertion. Endorses upper respiratory symptoms, runny nose, watery eyes. He has not seen a doctor/pcp prior to evaluation today Associated symptoms: Reports chills, fever(s) and nausea; Deny abdominal pain, chest pain, headache(s) or vomiting Related Data Home Medications ?Medication ?Instructions ?Recorded ?Confirmed acetaminophen 325 mg tablet 325 mg PO QID PRN Pain 01/24/24 09/02/24 (Tylenol) fluticasone propionate 50 1 spray intranasal BID PRN 01/24/24 09/02/24 mcg/actuation nasal allergies spray,suspension (Flonase Allergy Relief) losartan 100 mg tablet 100 mg PO DAILY 01/24/24 09/02/24 prednisone 5 mg tablet 5 mg PO DAILY 01/24/24 09/02/24 tamsulosin 0.4 mg capsule 0.4 mg PO DAILY 01/24/24 09/02/24 trazodone 100 mg tablet 100 mg PO DAILY PRN sleep 01/24/24 09/02/24 amlodipine 10 mg tablet 10 mg PO DAILY 03/17/24 09/02/24 furosemide 40 mg tablet 40 mg PO DAILY 03/17/24 09/02/24 guaifenesin 600 mg tablet, 600 mg PO BID 09/02/24 09/02/24 extended release 12 hr (Mucinex) Previous Rx's ?Medication ?Instructions ?Recorded blood sugar diagnostic (Contour #50 ea 05/18/22 Next Test Strips) Allergies Allergy/AdvReac Type Severity Reaction Status Date / Time No Known Allergies Allergy Verified 09/02/24 13:19 Review of Systems General: Reports: 10 or more systems reviewed and unremarkable except in HPI and below Const: Reports: fever(s), chills, body aches, change in appetite and malaise Eyes: Reports: increased production of tears; Denies: change in vision or blurry vision ENMT: Denies: throat pain or odynophagia Card: Reports: dyspnea on exertion, orthopnea and other (chest tightness with coughing); Denies: chest pain, palpitations, swelling of feet/ankles or leg pain with exertion Resp: Reports: dyspnea, productive cough, wheezing and chest congestion GI: Reports: nausea; Denies: abdominal pain or vomiting : Reports: urinary incontinence (with coughing); Denies: flank pain or difficulty urinating Musc: Denies: neck pain, back pain or joint pain Neuro: Denies: headache(s) or lack of coordination Psych: Denies: anxiety or depression PFSH ED PFSH: Medical History History of transcatheter aortic valve replacement (TAVR) History of colon polyps Impairment of balance Sleeplessness Left inguinal hernia Urinary hesitancy Nocturia more than twice per night Change in stool habits Abdominal discomfort Hx of basal cell carcinoma Allergic rhinitis Chronic neck pain Type 2 diabetes mellitus Diet managed Chronic anticoagulation INR goal 2-3 Hx pulmonary embolism Hypertension Surgical History History of inguinal hernia repair History of mitral valve repair History of colonoscopy History of esophagogastroduodenoscopy Hx of cataract surgery Family History Other CAD (coronary artery disease) Cancer Diabetes Heart attack Hyperlipidemia Hypertension Rheumatoid arthritis Stroke Denies family history of Lupus Chronic kidney disease (CKD) Social History Smoking and tobacco/nicotine status: former use of tobacco/nicotine Quit status (tobacco/nicotine): has quit using Former quit date comment: over 40 years ago Alcohol intake: current Alcohol intake frequency: few times a week Substance/Drug Use: never Physical Exam Const: COMMON NORMALS: patient oriented x3 HENMT: COMMON NORMALS: normocephalic, atraumatic, hearing grossly normal bilaterally, external ears normal, EAC's normal, TM's normal bilaterally, Normal nasal mucous membranes and turbinates present and oropharynx normal; oral mucous membranes not moist (dry) HEAD & SCALP: normocephalic and atraumatic FACE & SINUS: normal facial exam NOSE: Normal nasal mucous membranes and turbinates present EXTERNAL EAR: Yes external ears normal EXTERNAL AUDITORY CANAL: EAC's normal TYMPANIC MEMBRANE: TM's normal bilaterally Eye: COMMON NORMALS: Equal, round and reactive pupils present and EOMs intact bilaterally CONJUNCTIVA: Yes conjunctival abnormal positive left discharge SCLERA: scleral abnormal PUPIL: Yes Equal, round and reactive pupils present Neck/C-Spine: COMMON NORMALS: no JVD Chest: COMMONS NORMALS: normal inspection of the chest Resp: EFFORT & INSPECTION: Yes able to speak in complete sentences and Yes respiratory distress (conversational dyspnea) AUSCULTATION: rales (LLL, RLL, KAMARI) and wheezes (mild expiratory) Cardio: COMMON NORMALS: no JVD, regular rate, regular rhythm and Peripheral pulses 2+ throughout RATE: regular rate RHYTHM: regular rhythm HEART SOUNDS: Murmur heart sound present PERIPHERAL PULSES: Peripheral pulses 2+ throughout GI: COMMON NORMALS: Normal to inspection, nondistended, normoactive bowel sounds present and Soft to palpation PALPATION: Yes Soft to palpation and No Tenderness to palpation present (GI) : COMMON NORMALS: Yes no CVA tenderness BLADDER/KIDNEY EXAM: Yes no CVA tenderness Back/Pelvis: COMMON NORMALS: no CVA tenderness Extremity: COMMON NORMALS: normal to inspection and full ROM Neuro: COMMON NORMALS: patient oriented x3, CN's II-XII intact bilaterally and moves all extremities Psych: COMMON NORMALS: mental status grossly normal and Normal thought process present THOUGHT PROCESS: Normal thought process present Skin: COMMON NORMALS: no rashes or lesions noted and no wounds GENERAL SKIN EXAM: no rashes or lesions noted Course Reevaluation(s): Reevaluation #1: [id number]: improved per patient. O2 Sao2 89% on O2, will ask for hospitalist c/s for admission Consultations: Consultation #1: [id number]: Dr. Dillon with hospitalist group did accept patient Vital Signs: Vital signs: Vital Signs Temperature 102.8 F H 09/02/24 13:14 Pulse Rate 60 09/02/24 15:24 Respiratory Rate 27 H 09/02/24 14:19 Blood Pressure 121/61 09/02/24 14:19 Pulse Oximetry 90 09/02/24 15:24 Oxygen Delivery Me thod Room Air 09/02/24 15:24 MDM - URI/Sore Throat Medical Decision Making Patient is a 89-year-old gentleman with multiple comorbidities that presents with 2-3 weeks, and patient thinks closer to 3 weeks, with cough, fever, now sputum change associated with fever. He does not have chest discomfort however he has chest tightness. EKG shows AV paced A-fib. Breath sounds are C/W multilobar pneumonia. Chest x-ray is pending. Initial O2 sat is 91% on room air. Suspect patient will need admission, antibiotic coverage. Blood cultures will be drawn, sputum, lactic acid. Will start coverage with cefepime and doxycycline. Given his wheezing, and long-term use of prednisone, will utilize Solu-Medrol for stress dose, as well as treatment. Since he does not have any chest pain, will await further cardiac enzymes for any concern of adding aspirin. Considerations are CHF, however mucous membranes are dry, and HJR is negative as well as JVD. Discussed with hospitalist, that has excepted admission. Clinically, patient has pneumonia with fever, sputum change. This is worsened over the course the last 3 weeks. On physical examination Multi lobar what is suspected given breath sounds. Given his chronic prednisone, immunosuppression, started with cefepime for coverage, and doxycycline. As well, patient has conjunctival injection left eye therefore pseudomonal coverage was utilized. Differential Diagnosis Likely upper respiratory infection and viral infection Lab Data 09/02/24 13:53 09/02/24 13:53 Radiology Impressions Chest X-Ray 09/02/24 13:29 IMPRESSION: 1. No acute process noted. 2. Chronic RIGHT basilar changes noted. Laboratory Results WBC 11.00 10^3/uL (3.29-11.43) 09/02/24 13:53 RBC 3.99 10^6/uL (3.85-5.65) 09/02/24 13:53 Hgb 11.00 g/dL (11.27-16.99) L 09/02/24 13:53 Hct 34.7 % (37-53) L 09/02/24 13:53 MCV 87.0 fl (82-101) 09/02/24 13:53 MCH 27.6 pg (27-33) 09/02/24 13:53 MCHC 31.7 g/dL (30-55) 09/02/24 13:53 RDW 15.7 % (12.1-15.1) H 09/02/24 13:53 Plt Count 201 10^3/cmm (157-399) 09/02/24 13:53 MPV 10.4 fL (7.4-10.4) 09/02/24 13:53 Neut % (Auto) 93.5 % 09/02/24 13:53 Lymph % (Auto) 2.7 % 09/02/24 13:53 [place] % (Auto) 3.2 % 09/02/24 13:53 Eos % (Auto) 0.0 % 09/02/24 13:53 Baso % (Auto) 0.1 % 09/02/24 13:53 Neut # (Auto) 10.28 10^3/uL (1.8-7.7) H 09/02/24 13:53 Lymph # (Auto) 0.3 10^3/uL (0.8-4.8) L 09/02/24 13:53 [place] # (Auto) 0.4 10^3/uL (0.2-0.9) 09/02/24 13:53 Eos # (Auto) 0.0 10^3/uL (0.0-0.8) 09/02/24 13:53 Baso # (Auto) 0.0 10^3/uL (0.0-0.1) 09/02/24 13:53 Nucleated RBC % (auto) 0 % 09/02/24 13:53 Nucleated RBCs # 0.0 /100WBC 09/02/24 13:53 D-Dimer 2.24 ug/mLFEU (0-0.59) H 09/02/24 13:53 Sodium 137 mmol/L (136-145) 09/02/24 13:53 Potassium 4.2 mmol/L (3.5-5.1) 09/02/24 13:53 Chloride 102 mmol/L (98-107) 09/02/24 13:53 Carbon Dioxide 22 mmol/L (22-29) 09/02/24 13:53 Anion Gap 17.2 (5-19) 09/02/24 13:53 BUN 38 mg/dL (8-23) H 09/02/24 13:53 Creatinine 1.5 mg/dL (0.7-1.2) H 09/02/24 13:53 GFR Calculation Not Reportable 09/02/24 13:53 Glucose 135 mg/dL (65-115) H 09/02/24 13:53 Calculated Osmolality 295 mOsm/kg (285-295) 09/02/24 13:53 Lactic Acid 1.9 mmol/L (0.5-2.2) 09/02/24 13:53 Calcium 8.7 mg/dL (8.5-10.5) 09/02/24 13:53 Magnesium 2.0 mg/dL (1.7-2.3) 09/02/24 13:53 Total Bilirubin 1.0 mg/dL (0.15-1.2) 09/02/24 13:53 AST 36 U/L (0-40) 09/02/24 13:53 ALT 33 U/L (0-41) 09/02/24 13:53 Alkaline Phosphatase 131 U/L (40-130) H 09/02/24 13:53 Troponin T Baseline 102 ng/L (0-15) H* 09/02/24 13:53 NT-Pro-B Natriuret Pep 5079 pg/mL (0-450) H 09/02/24 13:53 Total Protein 9.4 g/dL (6.6-8.7) H 09/02/24 13:53 Albumin 3.6 g/dL (3.5-5.2) 09/02/24 13:53 Globulin 5.8 g/dL (1.3-4.6) H 09/02/24 13:53 XR interpretation done by ED provider, pending radiology final review ED provider radiology interpretation(s): multilobar infiltrate EKG Data EKG 1: Interpretation: av paced, afib, left axis, rate 61, qtc 457, no st elevation Computer Generated Interpretation: Electronic ventricular pacemaker, abnormal rhythm EKG, unconfirmed report Discharge Plan Discharge Patient Disposition: Admitted As Inpatient Clinical Impression: Multilobar lung infiltrate, Acute non-ST elevation myocardial infarction (NSTEMI) Condition: Stable Coding Level of Care Code ED School Psychometrist for Steffany Redmond
[2024-09-02] MEDS: methylPREDNISolone sod succ 125 mg/2 mL INJ 80 MG IV (13:55)
[2024-09-02 14:04] LABS: Basophils % 0.1 %; Hematocrit 34.7 % (37-53); Lymphocytes # 0.3 10^3/uL (0.8-4.8); Lymphocytes % 2.7 %; Mean Corpuscular HGB Conc 31.7 g/dL (30-55); Mean Corpuscular Hemoglobin 27.6 pg (27-33); Mean Platelet Volume 10.4 fL (7.4-10.4); Monocytes # 0.4 10^3/uL (0.2-0.9); Monocytes % 3.2 %; Neutrophils # 10.28 10^3/uL (1.8-7.7); Neutrophils % 93.5 %; Nucleated Red Blood Cells % 0 %; Platelet Count 201 10^3/cmm (157-399); Red Blood Count 3.99 10^6/uL (3.85-5.65); Red Cell Distribution Width 15.7 % (12.1-15.1)
[2024-09-02 14:24] LABS: Lactic Sepsis W/Reflex 1.9 mmol/L (0.5-2.2)
[2024-09-02 14:29] LABS: Alanine Aminotransferase 33 U/L (0-41); Albumin Level 3.6 g/dL (3.5-5.2); Alkaline Phosphatase 131 U/L (40-130); Anion Gap 17.2 (5-19); Aspartate Amino Transferase 36 U/L (0-40); Blood Urea Nitrogen 38 mg/dL (8-23); Calcium 8.7 mg/dL (8.5-10.5); Carbon Dioxide 22 mmol/L (22-29); Chloride 102 mmol/L (98-107); Creatinine Clr Calc Pharmacy 41.8168; Globulin 5.8 g/dL (1.3-4.6); Glucose 135 mg/dL (65-115); NT Pro B Type Natriuretic Pept 5079 pg/mL (0-450); Osmolality Calculated 295 mOsm/kg (285-295); Potassium 4.2 mmol/L (3.5-5.1); Sodium 137 mmol/L (136-145); Total Protein 9.4 g/dL (6.6-8.7)
[2024-09-02 14:33] LABS: Troponin(5th) Baseline 102 ng/L (0-15)
--- NOTE | 2024-09-02 15:09 | USCV_ITS ---
Moiz Hernandez Age: 89 Gender: M : 1935 Exam Date: 09/02/2024 19:04 Ordering Phys: Marissa Joel MD Technologist: RICHELLE Exam Location: [facility] [place] Indication: NSTEMI, hx TAVR with MV stapling 2022, HTN, febrile 102, SOB, bilateral LE 3+ pitting edema BP: 125 / 69 HR: 58 Rhythm: Paced rhythm with Atrial fibrillation Technical Quality: Adequate MEASUREMENTS (Male / Female) Normal Values 2D ECHO LV Diastolic Diameter PLAX 4.8 cm 4.2 - 5.9 / 3.9 - 5.3 cm IVS Diastolic Thickness 1.4 cm 0.6 - 1.0 / 0.6 - 0.9 cm IVS Systolic Thickness 1.1 cm LVPW Diastolic Thickness 1.3 cm 0.6 - 1.0 / 0.6 - 0.9 cm LVPW Systolic Thickness 2.0 cm LVOT Diameter 2.3 cm LV Ejection Fraction 2D Teich 58.4 % LV Ejection Fraction MOD 4C 56.9 % LV Ejection Fraction MOD 2C 66.6 % LV Ejection Fraction 2C AL 67.4 % LA Diameter 6.5 cm Aorta at Sinotubular Diameter 2.9 cm IVC Diameter 3.0 cm M-MODE LA Ao Ratio MM 1.8 AV Cusp Separation MM 1.5 cm DOPPLER AV Peak Velocity 197.7 cm/s LVOT Peak Velocity 72.0 cm/s AV Area Cont Eq vti 1.6 cm squared AV Area Cont Eq pk 1.5 cm squared MV Peak Velocity 207.0 cm/s MV Area PHT 1.6 cm squared Mitral E to A Ratio 0.0 TV Peak Velocity 247.3 cm/s TR Peak Velocity 300.0 cm/s TR Peak Gradient 36.0 mmHg TV Peak E Velocity 81.0 cm/s PV Peak Velocity 98.0 cm/s FINDINGS Left Ventricle Normal left ventricular size, systolic function and wall thickness, with no regional wall motion abnormalities. Left ventricular ejection fraction is estimated at 60 %. Grade III/IV diastolic dysfunction (restrictive filling pattern), severely elevated filling pressures. Grade IV/IV diastolic dysfunction (irreversible restrictive filling pattern), severely elevated filling pressures. Right Ventricle Moderately increased right ventricular size. Right Atrium Moderately increased right atrial size. Left Atrium The left atrium is normal in size. Mitral Valve Severely thickened mitral valve. Severe mitral annular calcification. Aortic Valve Normal prosthetic aortic valve sitting in a normal position without valvular and paravalvular leak. Tricuspid Valve Thickened tricuspid valve. Severe tricuspid valve regurgitation. Pulmonic Valve pulmonary valve regurgitation. Pericardium Normal pericardium without effusion. Aorta Normal ascending aorta dimension. IVC Dilated IVC with decreased respiratory variation. CONCLUSIONS Normal left ventricular size, systolic function and wall thickness, with no regional wall motion abnormalities. Left ventricular ejection fraction is estimated at 60 %. Grade III/IV diastolic dysfunction (restrictive filling pattern), severely elevated filling pressures. Grade IV/IV diastolic dysfunction (irreversible restrictive filling pattern), severely elevated filling pressures. Moderately increased right atrial size. Severely thickened mitral valve. Severe mitral annular calcification. Normal prosthetic aortic valve sitting in a normal position without valvular and paravalvular leak. Thickened tricuspid valve. Severe tricuspid valve regurgitation. There is no pericardial effusion. Right atrial pressure is around 10 mm of mercury. Cely Nguyễn MD (Electronically Signed) Final Date: 03 Sep 2024 12:59 S
[2024-09-02] MEDS: doxycycline 100 MG in sodium chloride 0.9% (plus) 100 ML IV (15:11)
[2024-09-02] MEDS: aspirin 81 mg Chew Tablet 324 MG PO (15:11)
[2024-09-02] MEDS: cefepime 2,000 mg SDV 2000 MG IVP (15:11)
--- NOTE | 2024-09-02 15:13 | PM.HP ---
Providers/Chief Complaint Primary Care Provider: Srinivasa Anderson MD Chief Complaint: high fever, green mucus History of Present Illness Moiz Hernandez is a 89 year old male with a past medical history of TAVR, mitral valve repair, hypertension, GERD, history of PE, history of diverticulitis, history of GI ulcers presenting to the hospital with cough and shortness of breath. Patient states he has been unwell for the last 2 weeks. He started to have cough and expectoration over the past 2 weeks along with generalized weakness. Today he developed a fever up to 102 Fahrenheit and developed more shortness of breath therefore presented into the emergency room. He was noted to have O2 sat of 90% on room air, however dropping to about 87% with minimal exertion. He takes as needed Lasix at home. He has noticed increasing swelling over his lower extremity with pitting edema therefore he took Lasix 40 mg orally overnight however states that the swelling has not gone down this time. He denies any chest pain. Denies any palpitations. Denies any nausea vomiting or diarrhea. Past medical history is notable for Sjogren syndrome for which patient is on prednisone 5 mg p.o. daily. Denies any recent use of high-dose steroids. Review of Systems General: Reports: 10 or more systems reviewed and unremarkable except in HPI and below Const: Denies: fever(s), chills or body aches Eyes: Denies: change in vision, blurry vision or photophobia ENMT: Reports: hoarseness; Denies: throat pain, enlarged tonsils, odynophagia or nasal congestion Card: Denies: chest pain, palpitations, irregular heart rhythm, edema, swelling of feet/ankles, lightheadedness, pre-syncope, dyspnea on exertion or orthopnea Resp: Denies: dyspnea, productive cough, non-productive cough, wheezing, stridor, pain on inspiration, change in phlegm color, hemoptysis or chest congestion GI: Denies: abdominal pain, nausea, vomiting, hematemesis, coffee ground emesis, dysphagia, heartburn, diarrhea, constipation, GI cramping, change in stool character, hematochezia or melena : Denies: flank pain, dysuria, urinary frequency, urinary urgency, urinary hesitancy or hematuria Musc: Denies: neck pain, back pain, extremity pain, joint swelling, joint warmth or deformity Neuro: Denies: headache(s), numbness in extremities, weakness in extremities, sensory changes, difficulty walking, frequent falls, dizziness, vertigo, behavioral changes, Slurred speech present or seizure-like activity Psych: Denies: anxiety, depression, suicidal ideation or homicidal ideation Endo: Denies: polyuria, polydipsia, tired all the time, cold intolerance or hot flashes Rajan/Lymph: Denies: easy bruising or easy bleeding Medications/Allergies Home Medications ?Medication ?Instructions ?Recorded ?Confirmed ?Last Taken ?Type blood sugar diagnostic (Contour #[id number] ea 05/18/22 09/02/24 Unknown Rx Next Test Strips) acetaminophen 325 mg tablet 325 mg PO QID PRN Pain 01/24/24 09/02/24 09/02/24 History (Tylenol) fluticasone propionate 50 1 spray intranasal BID PRN 01/24/24 09/02/24 Unknown History mcg/actuation nasal allergies spray,suspension (Flonase Allergy Relief) losartan 100 mg tablet 100 mg PO DAILY 01/24/24 09/02/24 09/02/24 History prednisone 5 mg tablet 5 mg PO DAILY 01/24/24 09/02/24 09/02/24 History tamsulosin 0.4 mg capsule 0.4 mg PO DAILY 01/24/24 09/02/24 03/16/24 History trazodone 100 mg tablet 100 mg PO DAILY PRN sleep 01/24/24 09/02/24 03/16/24 History amlodipine 10 mg tablet 10 mg PO DAILY 03/17/24 09/02/24 09/02/24 History furosemide 40 mg tablet 40 mg PO DAILY 03/17/24 09/02/24 09/02/24 History guaifenesin 600 mg tablet, 600 mg PO BID 09/02/24 09/02/24 09/02/24 History extended release 12 hr (Mucinex) Allergies Allergy/AdvReac Type Severity Reaction Status Date / Time No Known Allergies Allergy Verified 09/02/24 13:19 PFSH Acute PFSH: Medical History History of transcatheter aortic valve replacement (TAVR) History of colon polyps Impairment of balance Sleeplessness Left inguinal hernia Urinary hesitancy Nocturia more than twice per night Change in stool habits Abdominal discomfort Hx of basal cell carcinoma Allergic rhinitis Chronic neck pain Type 2 diabetes mellitus Diet managed Chronic anticoagulation INR goal 2-3 Hx pulmonary embolism Hypertension Surgical History History of inguinal hernia repair History of mitral valve repair History of colonoscopy History of esophagogastroduodenoscopy Hx of cataract surgery Family History Other CAD (coronary artery disease) Cancer Diabetes Heart attack Hyperlipidemia Hypertension Rheumatoid arthritis Stroke Denies family history of Lupus Chronic kidney disease (CKD) Social History Smoking and tobacco/nicotine status: former use of tobacco/nicotine Quit status (tobacco/nicotine): has quit using Former quit date comment: over 40 years ago Alcohol intake: current Alcohol intake frequency: few times a week Substance/Drug Use: never Vitals/I&O/Wt Last Vital Signs Temp 102.8 F H 09/02/24 13:14 Pulse 60 09/02/24 14:19 Resp 27 H 09/02/24 14:19 BP 121/61 09/02/24 14:19 Pulse Ox 90 09/02/24 14:19 O2 Del Method Room Air 09/02/24 14:19 09/02/24 09/02/24 09/02/24 06:59 14:59 22:59 Intake Total 0 / 0 Balance 0 / 0 Weight last 48 hrs Weight 79.379 kg Physical Exam Narrative: General: No acute distress, AO x3 HEENT: PERRLA, pupils bilaterally equal and reactive, pallors not present Chest: Normal vesicular breath sounds, no added sounds, equal good air entry bilaterally CVS: S1-S2 regular, no murmurs, no tachycardia, no gallops, no rubs Abdomen: Soft, nontender, no organomegaly, bowel sounds present Neuro: No focal deficits, no facial deformity, AO x3, power 5/5 in all limbs Data 09/02/24 13:53 09/02/24 13:53 Micro: Microbiology 09/02/24 14:16 Blood Culture - Preliminary Blood SPECIMEN COLLECTED 09/02/24 13:53 Blood Culture - Preliminary Blood SPECIMEN COLLECTED Other data: Radiology Impressions Chest X-Ray 09/02/24 13:29 IMPRESSION: 1. No acute process noted. 2. Chronic RIGHT basilar changes noted. Chest CT 09/02/24 15:48 IMPRESSION: 1. Patchy opacification in the superior segment of the left lower lobe concerning for an infiltrate. 2. Moderate cardiomegaly. 3. Trace right-sided pleural effusion. 4. Other nonacute findings as above. COMMENTS: Consistent with the [employer]'s Incidental Findings Committee white paper (J Am Zia Radiol 2018): Any incidental renal lesion less than 1 cm or classified as too small to characterize, or any incidental cystic renal lesion characterized as simple-appearing, is likely benign. No follow-up imaging is recommended for these lesions per consensus recommendations based on imaging criteria. Laboratory Results WBC 11.00 10^3/uL (3.29-11.43) 09/02/24 13:53 RBC 3.99 10^6/uL (3.85-5.65) 09/02/24 13:53 Hgb 11.00 g/dL (11.27-16.99) L 09/02/24 13:53 Hct 34.7 % (37-53) L 09/02/24 13:53 MCV 87.0 fl (82-101) 09/02/24 13:53 MCH 27.6 pg (27-33) 09/02/24 13:53 MCHC 31.7 g/dL (30-55) 09/02/24 13:53 RDW 15.7 % (12.1-15.1) H 09/02/24 13:53 Plt Count 201 10^3/cmm (157-399) 09/02/24 13:53 MPV 10.4 fL (7.4-10.4) 09/02/24 13:53 Neut % (Auto) 93.5 % 09/02/24 13:53 Lymph % (Auto) 2.7 % 09/02/24 13:53 [place] % (Auto) 3.2 % 09/02/24 13:53 Eos % (Auto) 0.0 % 09/02/24 13:53 Baso % (Auto) 0.1 % 09/02/24 13:53 Neut # (Auto) 10.28 10^3/uL (1.8-7.7) H 09/02/24 13:53 Lymph # (Auto) 0.3 10^3/uL (0.8-4.8) L 09/02/24 13:53 [place] # (Auto) 0.4 10^3/uL (0.2-0.9) 09/02/24 13:53 Eos # (Auto) 0.0 10^3/uL (0.0-0.8) 09/02/24 13:53 Baso # (Auto) 0.0 10^3/uL (0.0-0.1) 09/02/24 13:53 Nucleated RBC % (auto) 0 % 09/02/24 13:53 Nucleated RBCs # 0.0 /100WBC 09/02/24 13:53 D-Dimer 2.24 ug/mLFEU (0-0.59) H 09/02/24 13:53 Sodium 137 mmol/L (136-145) 09/02/24 13:53 Potassium 4.2 mmol/L (3.5-5.1) 09/02/24 13:53 Chloride 102 mmol/L (98-107) 09/02/24 13:53 Carbon Dioxide 22 mmol/L (22-29) 09/02/24 13:53 Anion Gap 17.2 (5-19) 09/02/24 13:53 BUN 38 mg/dL (8-23) H 09/02/24 13:53 Creatinine 1.5 mg/dL (0.7-1.2) H 09/02/24 13:53 GFR Calculation Not Reportable 09/02/24 13:53 Glucose 135 mg/dL (65-115) H 09/02/24 13:53 Calculated Osmolality 295 mOsm/kg (285-295) 09/02/24 13:53 Lactic Acid 1.9 mmol/L (0.5-2.2) 09/02/24 13:53 Calcium 8.7 mg/dL (8.5-10.5) 09/02/24 13:53 Magnesium 2.0 mg/dL (1.7-2.3) 09/02/24 13:53 Total Bilirubin 1.0 mg/dL (0.15-1.2) 09/02/24 13:53 AST 36 U/L (0-40) 09/02/24 13:53 ALT 33 U/L (0-41) 09/02/24 13:53 Alkaline Phosphatase 131 U/L (40-130) H 09/02/24 13:53 Troponin T Baseline 102 ng/L (0-15) H* 09/02/24 13:53 NT-Pro-B Natriuret Pep 5079 pg/mL (0-450) H 09/02/24 13:53 Total Protein 9.4 g/dL (6.6-8.7) H 09/02/24 13:53 Albumin 3.6 g/dL (3.5-5.2) 09/02/24 13:53 Globulin 5.8 g/dL (1.3-4.6) H 09/02/24 13:53 A&P Assessment and plan (1) Left lower lobe pneumonia: 89-year-old male with Sjogren syndrome, chronically on prednisone 5 mg p.o. daily presenting to the hospital with chief complaints of 2 weeks of worsening cough, sputum production and shortness of breath. Today he has been noted to have left lower lobe pneumonia. In the emergency room, he was noted to be having O2 saturation dropped to 87%. Patient typically is not on any oxygen. Does not have any known history of COPD. CT of the chest showing left lower lobe consolidation. Fever 102.8 Fahrenheit at the time of this exam Since patient has been worsening over the past 2 weeks, now with fever, elevated troponins r and evidence of consolidation with underlying risk factors for Sjogren disease and chronic prednisone use which makes him at a higher risk of complications, we will admit him and start treatment with IV antibiotics. Admit to [facility] Start IV ceftriaxone 1 g every 24 hours and levofloxacin 500 mg p.o. daily for treatment. Sputum culture and Gram stain to be obtained Check respiratory viral panel Check MRSA nasal screen Holding off on systemic steroids for now, closely monitor duoneb q6h as needed (2) Elevated troponin: Elevated baseline troponin of 102 , pending 2-hour and 6-hour trend. Patient denies any current chest pain EKG is showing paced rhythm. Aspirin 325 mg given now. Patient has a history of GI bleeding therefore we need to be very cautious with initiating anticoagulation. Since patient is currently chest pain-free, favor his elevated troponins to be a result of CHF versus type II OR from acute infection. Obtain echocardiogram. In reviewing prior records patient has a history of diverticular bleeding And he states that he has been recommended not to even take aspirin in the past. It appears he was on anticoagulation with warfarin previously but was taken off for this reason. Patient typically follows with cardiology at [place] (3) Chronic CHF: chronic diastolic CHF LE pitting edema noted, will hold off on lasix for now as patient appears clinically dehydrated. (4) A-fib: currently paced off a/c due to history of diverticular GI bleeding. (5) JOSSELYN (acute kidney injury): Creatinine at 1.5 today Bladder scan showing only 150 cc of urine. UA, urine culture Hold off on Lasix today and trend creatinine. Plan DVT prophylaxis: Holding off for now pending creatinine trend given history of GI bleed, if troponin continues to trend up will need to be initiated on full dose anticoagulation versus heparin drip Full code PDMP PDMP Reviewed: Not Reviewed Attestations Medical Necessity Statement*: Greater than 2 midnight stay is anticipated Coding Level of Care Code Acute Code for [facility] Fwd Diagnoses Pneumonia of left lower lobe due to infectious organism J18.9 Pneumonia type: due to unspecified organism Elevated troponin R79.89 Chronic diastolic congestive heart failure I50.32 Heart failure type: diastolic Persistent atrial fibrillation I48.19 Atrial fibrillation type: persistent (not longstanding) JOSSELYN (acute kidney injury) N17.9
[2024-09-02 15:35] LABS: D Dimer 2.24 ug/mLFEU (0-0.59)
--- NOTE | 2024-09-02 15:48 | CTR_ITS ---
PROCEDURE INFORMATION: Exam: CT Chest Without Contrast; Diagnostic Exam date and time: 09/02/2024 3:59 PM Age: 89 years old Clinical indication: Abnormal findings; Abnormal radiologic exam of lung or chest; Prior surgery; Surgery date: 6+ months; Surgery type: Pig valve, watchman; Additional info: Evalute atypical pna, sjogren syndrome on chronic steroids, lll crepts on exam, TECHNIQUE: Imaging protocol: Diagnostic computed tomography of the chest without contrast. Radiation optimization: All CT scans at this facility use at least one of these dose optimization techniques: automated exposure control; mA and/or kV adjustment per patient size (includes targeted exams where dose is matched to clinical indication); or iterative reconstruction. COMPARISON: 1[place] [id number] 06/02/2022 8:15 AM 2. CR XR chest 2V* [id number] 09/02/2024 2:02 PM RADIATION DOSE METRICS: Total DLP (mGy-cm): 424.83 FINDINGS: Lungs: Patchy opacification in the superior segment of the left lower lobe concerning for an infiltrate. No suspicious masses or nodules. Calcified granulomas in the anterior segment of the left upper lobe and in the right middle lobe. Pleural spaces: Trace right-sided pleural effusion. No pneumothorax. Heart: Moderate cardiomegaly. TAVR in place. Left atrial appendage occlusion device in place. No pericardial effusions. Prominent IVC suggestive of right heart dysfunction. Coronary arteries: Moderate atherosclerotic coronary artery calcifications. Lymph nodes: Unremarkable. No enlarged lymph nodes. Vasculature: Atherosclerotic calcifications thoracic aorta without aneurysmal dilatation. Liver: Simple cyst in the left lobe of the liver measuring 4.8 cm. No follow-up indicated. Kidneys: Simple cyst in the posterior aspect of the right kidney measuring 3.1 cm. No follow-up indicated. Bones/joints: Unremarkable. No acute fracture. Soft tissues: Unremarkable. CT/CT chest wo con [id number] IMPRESSION: 1. Patchy opacification in the superior segment of the left lower lobe concerning for an infiltrate. 2. Moderate cardiomegaly. 3. Trace right-sided pleural effusion. 4. Other nonacute findings as above. COMMENTS: Consistent with the [employer]'s Incidental Findings Committee white paper (J Am Zia Radiol 2018): Any incidental renal lesion less than 1 cm or classified as too small to characterize, or any incidental cystic renal lesion characterized as simple-appearing, is likely benign. No follow-up imaging is recommended for these lesions per consensus recommendations based on imaging criteria.
--- NOTE | 2024-09-02 15:55 | PC.NURSE ---
pt had urine output, but forgot about UA sample & dumped down sink; educated again on need for urine sample.
[2024-09-02] MEDS: cefTRIAXone 1,000 mg SDV 1000 MG IVP (16:10)
--- NOTE | 2024-09-02 16:26 | USR_ITS ---
PROCEDURE INFORMATION: Exam: US Duplex Lower Extremity Veins, Bilateral Exam date and time: 09/02/2024 5:42 PM Age: 89 years old Clinical indication: Screening exam; R/O dvt; Additional info: Assess for dvt TECHNIQUE: Imaging protocol: Real-time duplex ultrasound of the bilateral extremities with 2-D garcia scale, color Doppler flow and spectral waveform analysis including responses to compression and other maneuvers (when performed) with image documentation. Complete exam focused on the lower extremity veins. COMPARISON: CT abdomen pelvis w con* [id number] 01/24/2024 6:13 AM FINDINGS: Right deep veins: Unremarkable. The common femoral, femoral, proximal profunda femoral and popliteal veins are patent without thrombus. Normal Doppler waveforms. Normal compressibility and/or augmentation response. Left deep veins: Unremarkable. The common femoral, femoral, proximal profunda femoral and popliteal veins are patent without thrombus. Normal Doppler waveforms. Normal compressibility and/or augmentation response. Superficial veins: Greater saphenous veins at the saphenofemoral junctions are patent bilaterally without thrombus. Soft tissues: Subcutaneous edema at the level of the calves bilaterally. US/CV venous duplex [facility] [id number] IMPRESSION: 1. No evidence of deep vein thrombosis. 2. Subcutaneous edema at the level of the calves bilaterally.
[2024-09-02 16:35] LABS: Troponin 5 2HR 129.1 ng/L (0-15); Troponin 5 2HR Delta 27.1 ABS# (0-10)
[2024-09-02 17:12] LABS: MRSA PCR OZH (swab) NOT DETECTED (Negative)
[2024-09-02 17:50] LABS: Adenovirus Not Detected (NOT DETECT); Chlamydia Pneumoniae Not Detected (NOT DETECT); Coronavirus 229E,HKU1,NL63,OC4 Not Detected (NOT DETECT); Human Metapneumovirus Not Detected (NOT DETECT); Human Rhinovirus/Enterovirus Not Detected (NOT DETECT); Influenza A Not Detected (NOT DETECT); Influenza A H1 Not Detected (NOT DETECT); Influenza A H1-2009 Not Detected (NOT DETECT); Influenza A H3 Not Detected (NOT DETECT); Influenza B Not Detected (NOT DETECT); Mycoplasma Pneumoniae Not Detected (NOT DETECT); Parainfluenza Virus Type 1 Not Detected (NOT DETECT); Parainfluenza Virus Type 2 Not Detected (NOT DETECT); Parainfluenza Virus Type 3 Not Detected (NOT DETECT); Parainfluenza Virus Type 4 Not Detected (NOT DETECT); Respiratory Syncytial Virus A Not Detected (NOT DETECT); Respiratory Syncytial Virus B Not Detected (NOT DETECT); SARS-COV-2 Not Detected (NOT DETECT)
[2024-09-02 20:34] LABS: Glucose Point of Care 187 mg/dL (70-110)
[2024-09-02] MEDS: ciprofloxacin 0.3% Op Soln 2.5 mL Btl 1 DROP EYE-BOTH ×2 (20:49→22:56)
[2024-09-02] MEDS: ipratropium-albuterol 3 mL Neb INHALATION (21:10)
[2024-09-02] MEDS: trazodone 100 mg Tablet PO (22:56)
[2024-09-03] VITALS (13 sets, daily range): BP systolic 106–140; BP diastolic 54–71; PULSE 60–61; RESP 16–26; TEMP 36.3–37.4; O2SAT 93–98
[2024-09-03 00:06] LABS: Troponin T (5th) Once 108 ng/L (0-15)
[2024-09-03] MEDS: ipratropium-albuterol 3 mL Neb INHALATION ×4 (02:26→20:45)
[2024-09-03] MEDS: ciprofloxacin 0.3% Op Soln 2.5 mL Btl 1 DROP EYE-BOTH ×5 (03:35→23:04)
[2024-09-03 04:19] LABS: Basophils % 0.1 %; Hematocrit 30.8 % (37-53); Lymphocytes # 0.5 10^3/uL (0.8-4.8); Mean Corpuscular HGB Conc 32.1 g/dL (30-55); Mean Corpuscular Hemoglobin 27.8 pg (27-33); Mean Corpuscular Volume 86.5 fl (82-101); Mean Platelet Volume 10.8 fL (7.4-10.4); Monocytes # 0.2 10^3/uL (0.2-0.9); Monocytes % 1.1 %; Neutrophils # 15.17 10^3/uL (1.8-7.7); Neutrophils % 95.4 %; Nucleated Red Blood Cells % 0 %; Platelet Count 155 10^3/cmm (157-399); Red Blood Count 3.56 10^6/uL (3.85-5.65); Red Cell Distribution Width 15.7 % (12.1-15.1); White Blood Count 15.89 10^3/uL (3.29-11.43)
[2024-09-03 04:37] LABS: Alanine Aminotransferase 28 U/L (0-41); Albumin Level 3.1 g/dL (3.5-5.2); Alkaline Phosphatase 106 U/L (40-130); Aspartate Amino Transferase 28 U/L (0-40); Blood Urea Nitrogen 44 mg/dL (8-23); Calcium 8.1 mg/dL (8.5-10.5); Carbon Dioxide 20 mmol/L (22-29); Chloride 105 mmol/L (98-107); Creatinine Clr Calc Pharmacy 39.5121; Globulin 4.9 g/dL (1.3-4.6); Glucose 275 mg/dL (65-115); Osmolality Calculated 307 mOsm/kg (285-295); Sodium 138 mmol/L (136-145); Total Bilirubin 0.5 mg/dL (0.15-1.2)
[2024-09-03 05:47] LABS: Glucose Point of Care 293 mg/dL (70-110)
[2024-09-03] MEDS: levoFLOXacin 500 mg Tablet PO (08:21)
[2024-09-03] MEDS: pantoprazole DR 40 mg Tablet PO (08:21)
--- NOTE | 2024-09-03 09:57 | P.CONIM_ITS ---
<Statement entered by Andrew Decker M.D - 09/05/24 13:51> Patient was evaluated and cared for in conjunction with an advanced practice practitioner.? I personally examined the patient and reviewed the chart and all pertinent data including imaging, telemetry, and laboratory results.? I discussed the patient in detail with the advanced practice practitioner.? Please see? their note for complete H&P, testing results and agreed upon plan of care for the patient. Troponin elevation secondary to demand ischemia. no chest pain. EF is normal on echocardiogram. Continue medical therapy with outpatient cardiology follpw up. GENERAL: Patient is alert, awake and oriented x3. HEART: Grade 3/6 systolic murmur LUNGS: Clear to auscultate bilaterally. CENTRAL NERVOUS SYSTEM: Grossly nonfocal. EXTREMITIES: Lower extremities with out edema bilaterally. Providers/Reason For Consult 2 Consulting Physician/Specialty*: Dr Decker, cardiology Reason for Consult*: troponin elevation Requesting Physician: Dr Joel Attending Physician: Marissa Joel MD Primary Care Provider: Srinivasa Anderson MD History of Present Illness History of Present Illness Moiz Hernandez is a 89 year old male with history of TAVR, mitral valve repair (clip), hypertension, PE, history of GI bleed, atrial fibrillation, Micra pacemaker, Sjogren syndrome. He presented to the emergency room yesterday due to weakness, fever, increased edema, worsening shortness of breath. EKG in the emergency room showed ventricular pacing. Labs: Hemoglobin initially 11, down to 9.9 today. WBC 15 today. Today BUN 44, creatinine 1.6 no history of CKD. Troponin series: 102-> 129. BNP 5079. Viral panel negative. Chest CT yesterday showed left lower lobe opacification, trace right-sided pleural effusion. Currently being treated for pneumonia. Of note the CT shows a left atrial appendage occlusion device. Prominent IVC agrees with volume overload. Echocardiogram is pending read. He did not have any chest pain, decreased activity tolerance, worsening shortness of breath prior to this pneumonia illness. He reports some intermittent difficulties with volume overload at times. He notes he did have a coronary angiogram at the time that the valve procedures were done, by his report it was a normal cath, no stenosis. Review of Systems 2 Const: Denies: fever(s), chills, change in weight, fatigue or diaphoresis Eyes: Denies: change in vision ENMT: Denies: epistaxis Card: Reports: edema and dyspnea on exertion; Denies: chest pain, palpitations, irregular heart rhythm, syncope, pre-syncope, orthopnea or leg pain with exertion Resp: Denies: dyspnea, productive cough or wheezing GI: Denies: nausea, vomiting, hematemesis, hematochezia or melena : Denies: hematuria Rajan/Lymph: Denies: easy bruising or easy bleeding Medications/Allergies Home Medications ?Medication ?Instructions ?Recorded ?Confirmed ?Last Taken ?Type blood sugar diagnostic (Contour #[phone] ea 05/18/22 Unknown Rx Next Test Strips) acetaminophen 325 mg tablet 325 mg PO QID PRN Pain 08/1309/02/24 09/02/24 History (Tylenol) fluticasone propionate 50 1 spray intranasal BID PRN 1 09/02/24 Unknown History mcg/actuation nasal allergies spray,suspension (Flonase Allergy Relief) losartan 100 mg tablet 100 mg PO DAILY 01/24/2409/02/24 History prednisone 5 mg tablet 5 mg PO DAILY 01/24/2409/0209/02/24 History tamsulosin 0.4 mg capsule 0.4 mg PO DAILY 01/24/2403/16/24 History trazodone 100 mg tablet 100 mg PO DAILY PRN sleep 09/02/24 03/16/24 History amlodipine 10 mg tablet 10 mg PO DAILY 03/17/2408/2009/02/24 History furosemide 40 mg tablet 40 mg PO DAILY 03/17/2408/2009/02/24 History guaifenesin 600 mg tablet, 600 mg PO BID 09/02/2408/2009/02/24 History extended release 12 hr (Mucinex) Allergies Allergy/AdvReac Type Severity Reaction Status Date / Time No Known Allergies Allergy Verified 09/02/24 13:19 Current Medications Generic Name Dose Route Start Last Admin Trade Name Freq PRN Reason Stop Dose Admin Albuterol/Ipratropium 3 ml 09/02/24 20:00 09/03/24 07:53 Ipratropium-Albuterol 3 Ml Neb INHALATION 3 ml Q6H.RESP BIRDIE Administration Ceftriaxone Sodium 1,000 mg 09/02/24 15:15 09/02/24 16:10 Ceftriaxone 1,000 Mg Sdv IVP 1,000 mg Q24H BIRDIE Administration Protocol Ciprofloxacin HCl 1 drop 09/02/24 19:00 09/03/24 08:20 Ciprofloxacin 0.3% Op Soln 2.5 Ml Btl EYE-BOTH 1 drop Q4H BIRDIE Administration Protocol Levofloxacin 500 mg 09/03/24 09:00 09/03/24 08:21 Levofloxacin 500 Mg Tablet PO 500 mg DAILY BIRDIE Administration Protocol Pantoprazole Sodium 40 mg 09/03/24 09:00 09/03/24 08:[address] 40 Mg Tablet PO 40 mg DAILY BIRDIE Administration Trazodone HCl 100 mg 09/02/24 22:28 09/02/24 22:56 Trazodone 100 Mg Tablet PO 100 mg BEDTIME PRN Administration SLEEP PFSH Acute 2 PFSH: Medical History (Updated 09/03/24 @ 10:11 by MARIA C Piña) History of transcatheter aortic valve replacement (TAVR) History of colon polyps Impairment of balance Sleeplessness Left inguinal hernia Urinary hesitancy Nocturia more than twice per night Change in stool habits Abdominal discomfort Hx of basal cell carcinoma Allergic rhinitis Chronic neck pain Type 2 diabetes mellitus Diet managed Chronic anticoagulation INR goal 2-3 Hx pulmonary embolism Hypertension Surgical History (Updated 09/03/24 @ 10:11 by MARIA C Piña) History of inguinal hernia repair History of mitral valve repair History of colonoscopy History of esophagogastroduodenoscopy Hx of cataract surgery Family History Other CAD (coronary artery disease) Cancer Diabetes Heart attack Hyperlipidemia Hypertension Rheumatoid arthritis Stroke Denies family history of Lupus Chronic kidney disease (CKD) Social History Smoking and tobacco/nicotine status: former use of tobacco/nicotine Quit status (tobacco/nicotine): has quit using Former quit date comment: over 40 years ago Alcohol intake: current Alcohol intake frequency: few times a week Substance/Drug Use: never Vitals/I&O/Wt Last Vital Signs Temp 98.7 F 09/03/24 08:00 Pulse 60 09/03/24 08:00 Resp 24 H 09/03/24 08:00 BP 123/61 09/03/24 08:00 Pulse Ox 95 09/03/24 08:00 O2 Del Method Room Air 09/03/24 08:00 09/02/24 09/03/24 09/03/24 22:59 06:59 14:59 Intake Total 350 / 350 0 / 350 480 / 480 Output Total 600 / 800 200 / 800 120 / 120 Balance -250 / -450 -200 / -450 360 / 360 Weight last 48 hrs Weight 178 lb 11.2 oz Weight 175 lb Physical Exam 2 Const: COMMON NORMALS: no acute distress and patient oriented x3 GENERAL APPEARANCE: cooperative and comfortable ORIENTATION/CONSCIOUSNESS: Yes awake, Yes oriented to person, Yes oriented to place and Yes oriented to time Chest: COMMONS NORMALS: normal inspection of the chest and normal palpation of entire chest wall CHEST: Yes Symmetrical chest wall rise Resp: COMMON NORMALS: normal respiratory effort, No retractions and No use of accessory muscles EFFORT & INSPECTION: Yes symmetric chest movement A USCULTATION: rhonchi Cardio: COMMON NORMALS: regular rate, regular rhythm, S1 normal heart sound present, S2 normal heart sound present, No gallops present (Cardio), No clicks present (Cardio), No murmurs present (Cardio) and No rub (Cardio) RATE: r egular rate RHYTHM: regular rhythm HEART SOUNDS: S1 normal heart sound present and S2 normal heart sound present PERIPHERAL PULSES: radial pulses present Extremity: GENERAL: No edema Neuro: COMMON NORMALS: patient oriented x3 and moves all extremities S ENSORIUM/ORIENTATION: Yes oriented to person, Yes oriented to place and Yes oriented to time Data 09/03/24 03:36 09/03/24 03:36 Micro: Microbiology 09/02/24 14:16 Blood Culture - Preliminary Blood SPECIMEN COLLECTED 09/02/24 13:53 Blood Culture - Preliminary Blood SPECIMEN COLLECTED A&P Assessment and plan (1) Elevated troponin: (2) A-fib: (3) S/P TAVR (transcatheter aortic valve replacement): (4) Presence of Watchman left atrial appendage closure device: (5) Hypertension: Plan Suspect demand ischemia from pneumonia. Will wait for read on echocardiogram, if LV function is normal we will continue with medical management. If LV function has decreased will recommend a stress test. He has good ventricular rates, without a AV ermelinda casey. I do not suspect any A-fib with RVR, interrogation of the device today does not show any arrhythmia events. He appeared volume overloaded yesterday, is better now. BNP may be difficult to interpret with the elevated creatinine. Clinically he does not appear volume overloaded today. Recommend to hold losartan until creatinine improves. If blood pressure becomes elevated could resume amlodipine from his home med list. PDMP PDMP Reviewed: Not Reviewed Consult Attestations 2 Medical Necessity Statement: Per hospitalist Coding Level of Care Code Acute Code for Chg Fwd Diagnoses Elevated troponin R79.89 Persistent atrial fibrillation I48.19 Atrial fibrillation type: persistent (not longstanding) S/P TAVR (transcatheter aortic valve replacement) Z95.2 Presence of Watchman left atrial appendage closure device Z95.818 Essential hypertension I10 Hypertension type: essential hypertension
--- NOTE | 2024-09-03 10:30 | P.PN_ITS ---
Subjective 2 Subjective: Patient states he is breathing easier today. Saturating 96% room air. Troponins continue to be trending at 102--> 120--> 108. Echocardiogram currently pending. Tmax 102.8 Fahrenheit last 24 hours. Wbc count up to 15.8 today Medications: Reviewed: Yes Vitals/I&O/Wt Last Vital Signs Temp 97.6 F 09/03/24 12:00 Pulse 60 09/03/24 13:41 Resp 16 09/03/24 13:41 BP 130/64 09/03/24 12:00 Pulse Ox 96 09/03/24 13:41 O2 Del Method Room Air 09/03/24 13:41 09/02/24 09/03/24 09/03/24 22:59 06:59 14:59 Intake Total 350 / 350 0 / 350 600 / 600 Output Total 600 / 600 200 / 800 240 / 240 Balance -250 / -250 -200 / -450 360 / 360 Weight last 48 hrs Weight 81.057 kg Weight 79.379 kg Physical Exam 2 Narrative: General: No acute distress, AO x3 HEENT: PERRLA, pupils bilaterally equal and reactive, pallors not present Chest: Normal vesicular breath sounds, no added sounds, equal good air entry bilaterally CVS: S1-S2 regular, no murmurs, no tachycardia, no gallops, no rubs Abdomen: Soft, nontender, no organomegaly, bowel sounds present Neuro: No focal deficits, no facial deformity, AO x3, power 5/5 in all limbs Data 09/03/24 03:36 09/03/24 03:36 Micro: Microbiology 09/02/24 14:16 Blood Culture - Preliminary Blood SPECIMEN COLLECTED 09/02/24 13:53 Blood Culture - Preliminary Blood SPECIMEN COLLECTED A&P Assessment and plan (1) Left lower lobe pneumonia: 89-year-old male with Sjogren syndrome, chronically on prednisone 5 mg p.o. daily presenting to the hospital with chief complaints of 2 weeks of worsening cough, sputum production and shortness of breath. Today he has been noted to have left lower lobe pneumonia. In the emergency room, he was noted to be having O2 saturation dropped to 87%. Patient typically is not on any oxygen. Does not have any known history of COPD. CT of the chest showing left lower lobe consolidation. Fever 102.8 Fahrenheit at the time of this exam Since patient has been worsening over the past 2 weeks, now with fever, elevated troponins r and evidence of consolidation with underlying risk factors for Sjogren disease and chronic prednisone use which makes him at a higher risk of complications, we will admit him and start treatment with IV antibiotics. Admit to [facility] Start IV ceftriaxone 1 g every 24 hours and levofloxacin 500 mg p.o. daily for treatment. Sputum culture and Gram stain to be obtained Check respiratory viral panel Check MRSA nasal screen Holding off on systemic steroids for now, closely monitor duoneb q6h as needed (2) Elevated troponin: Elevated baseline troponin of 102 , pending 2-hour and 6-hour trend. Patient denies any current chest pain EKG is showing paced rhythm. Aspirin 325 mg given now. Patient has a history of GI bleeding therefore we need to be very cautious with initiating anticoagulation. Since patient is currently chest pain-free, favor his elevated troponins to be a result of CHF versus type II MS from acute infection. Obtain echocardiogram. In reviewing prior records patient has a history of diverticular bleeding And he states that he has been recommended not to even take aspirin in the past. It appears he was on anticoagulation with warfarin previously but was taken off for this reason. Patient typically follows with cardiology at [place] (3) Chronic CHF: chronic diastolic CHF LE pitting edema noted, will hold off on lasix for now as patient appears clinically dehydrated. (4) A-fib: currently paced off a/c due to history of diverticular GI bleeding. (5) JOSSELYN (acute kidney injury): Creatinine at 1.5 today Bladder scan showing only 150 cc of urine. UA, urine culture Hold off on Lasix today and trend creatinine. Plan DVT prophylaxis: Holding off for now pending creatinine trend given history of GI bleed, if troponin continues to trend up will need to be initiated on full dose anticoagulation versus heparin drip Full code 09/03/2024 Tmax of 102.8 Fahrenheit last 24 hours. White count up to 15,000 today. States that his breathing is feeling slightly better today. Continue IV antibiotics as started yesterday. Echocardiogram currently remains pending. Overnight troponin trend was at 102--> 120--> 108. Echocardiogram currently pending. Favored this to be a type II MS due to acute infection. Patient is currently chest pain-free. Will consult cardiology given elevated troponins. Holding off on anticoagulation until cardiology recommendations as overall patient reports a history of GI bleed and is very hesitant to begin anticoagulation. DVT prophylaxis with SCDs only for this reason. PDMP PDMP Reviewed: Not Reviewed Attestations 2 Medical Necessity Statement*: pending echo, awaiting 24 hr afebrile period, awaiting downtrending leukocytosis Coding Level of Care Code Acute Code for Chg Fwd Diagnoses Pneumonia of left lower lobe due to infectious organism J18.9 Pneumonia type: due to unspecified organism Elevated troponin R79.89 Chronic diastolic congestive heart failure I50.32 Heart failure type: diastolic Persistent atrial fibrillation I48.19 Atrial fibrillation type: persistent (not longstanding) JOSSELYN (acute kidney injury) N17.9
--- NOTE | 2024-09-03 11:05 | PC.CHAP ---
Pastoral Care Encounter/Spiritual Assessment Type of Contact [] Declined acetylene cylinder packing mixer visit [] Patient/Family/Request visit [] Outpatient visit [] Follow-up visit [] Physician referral [] Code/Alert [x] Routine visit [] Staff referral [] Actively dying [] Patient sleeping [] Family support [] [] Out of room [] Palliative care [] [] Receiving care in room [] Pre-surgical visit [] Trauma [] Long length of stay [] ICU visit [] Other: Relational/Emotional Strength [x] Patient feels connected with others/family/visitors/staff [] Distress [] Loneliness/isolation [] Abandonment Spirituality of Patient [x] Person of Sultana [] Attends Hoahaoism of their Sultana [x] Believes in Prayer [] Reads Bible or Voodoo materials [] There are Spiritual issues to be addressed Sat Math Tutor Interventions [x] Prayer [x] Active listening [] Non-anxious presence [x] Spiritual/emotional support [] Crisis/trauma care [] Spiritual counseling [] Bereavement support [] Provided bereavement packet [] Provided Bible/devotional materials [] Provided toy/stuffed animal, coloring book to patient or family member [] Provided Communion [] Anointing/[place] [] Salvation [x] Completed spiritual assessment [] Other: Impact on Illness or Injury [] Angry [] Fearful [] Anxious [] Often cries [] Exhaustion [] Unable to work [] Unable to attend presybeterian [] Unable to walk/stand [] Unable to read [] Unable to drive [] Unable to eat/drink [] Unable to sleep [] Unable to be with family [] Patient intubated [] Other: Summary Time spent with patient 5 min
[2024-09-03 12:04] LABS: Glucose Point of Care 181 mg/dL (70-110)
[2024-09-03] MEDS: cefTRIAXone 1,000 mg SDV 1000 MG IVP (15:22)
[2024-09-03] MEDS: predniSONE 5 mg Tablet PO (15:23)
[2024-09-03 17:38] LABS: Glucose Point of Care 179 mg/dL (70-110)
[2024-09-03] MEDS: trazodone 100 mg Tablet PO (23:04)
[2024-09-04] VITALS: BP 120/64; PULSE 60; RESP 24; TEMP 36.7; O2SAT 91
[2024-09-04 02:04] VITALS: PULSE 60; RESP 17; O2SAT 94
[2024-09-04] MEDS: ipratropium-albuterol 3 mL Neb INHALATION ×2 (02:04→08:47)
[2024-09-04 02:10] VITALS: PULSE 60
[2024-09-04 04:00] VITALS: BP 121/63; PULSE 60; RESP 22; TEMP 37.1; O2SAT 90
[2024-09-04 05:02] LABS: Basophils % 0.1 %; Hematocrit 29.5 % (37-53); Lymphocytes # 0.4 10^3/uL (0.8-4.8); Lymphocytes % 3.2 %; Mean Corpuscular HGB Conc 30.8 g/dL (30-55); Mean Corpuscular Hemoglobin 27.2 pg (27-33); Mean Corpuscular Volume 88.3 fl (82-101); Mean Platelet Volume 10.9 fL (7.4-10.4); Monocytes # 0.6 10^3/uL (0.2-0.9); Monocytes % 4.1 %; Neutrophils # 12.57 10^3/uL (1.8-7.7); Nucleated Red Blood Cells % 0 %; Platelet Count 157 10^3/cmm (157-399); Red Blood Count 3.34 10^6/uL (3.85-5.65); Red Cell Distribution Width 15.9 % (12.1-15.1); White Blood Count 13.66 10^3/uL (3.29-11.43)
[2024-09-04 05:12] LABS: Alanine Aminotransferase 30 U/L (0-41); Alkaline Phosphatase 94 U/L (40-130); Aspartate Amino Transferase 28 U/L (0-40); Blood Urea Nitrogen 51 mg/dL (8-23); Calcium 8.5 mg/dL (8.5-10.5); Carbon Dioxide 20 mmol/L (22-29); Chloride 106 mmol/L (98-107); Creatinine Clr Calc Pharmacy 39.6039; Globulin 4.8 g/dL (1.3-4.6); Glucose 142 mg/dL (65-115); Osmolality Calculated 300 mOsm/kg (285-295); Sodium 137 mmol/L (136-145); Total Bilirubin 0.3 mg/dL (0.15-1.2); Total Protein 7.8 g/dL (6.6-8.7)
[2024-09-04] MEDS: ciprofloxacin 0.3% Op Soln 2.5 mL Btl 1 DROP EYE-BOTH ×2 (05:12→09:12)
[2024-09-04 08:00] VITALS: BP 140/71; PULSE 60; RESP 18; RESP 20; TEMP 36.6; O2SAT 96
[2024-09-04] MEDS: levoFLOXacin 250 mg Tablet PO (09:13)
[2024-09-04] MEDS: FUROsemide 40 mg Tablet 20 MG PO (09:13)
[2024-09-04] MEDS: tamsulosin 0.4 mg Capsule PO (09:14)
[2024-09-04] MEDS: predniSONE 5 mg Tablet PO (09:14)
[2024-09-04] MEDS: amlodipine 10 mg Tablet PO (09:14)
[2024-09-04] MEDS: pantoprazole DR 40 mg Tablet PO (09:14)
--- NOTE | 2024-09-04 09:21 | PC.SOCIAL ---
IMM Update Pg 2 of IMM updated and reviewed with patient, who verbalized understanding. Copy provided.
[2024-09-04 10:18] VITALS: BP 140/71; PULSE 60; RESP 20; O2SAT 96
--- NOTE | 2024-09-04 11:15 | PC.NURSE ---
discharge medications provided by meds to beds.discharge instructions given and explained.pt and son verb understanding of instructions.discharged via w/c to exit at this time.
--- NOTE | 2024-09-04 15:32 | P.DS_ITS ---
Discharge Providers Date of Admission: 09/02/24 17:26 Date of Discharge: September 04, 2024 Attending Provider at Admission: Marissa Joel MD Attending Provider at Discharge: Marissa Joel MD Primary Care Provider: Srinivasa Anderson MD Diagnoses at Discharge Discharge Diagnosis (1) Left lower lobe pneumonia: Status: Acute Qualifiers: Pneumonia type: due to unspecified organism Qualified Code(s): J18.9 - Pneumonia, unspecified organism (2) Elevated troponin: Status: Acute (3) Chronic CHF: Status: Acute Qualifiers: Heart failure type: diastolic Qualified Code(s): I50.32 - Chronic diastolic (congestive) heart failure (4) A-fib: Status: Acute Qualifiers: Atrial fibrillation type: persistent (not longstanding) Qualified Cod e(s): I48.19 - Other persistent atrial fibrillation (5) JOSSELYN (acute kidney injury): Status: Acute Reason for Visit Reason for Visit: high fever, green mucus Brief History: 89 year old male with a past medical his tory of TAVR, mitral valve repair, hypertension, GERD, history of PE, history of diverticulitis, history of GI ulcers presented to the hospital with cough and shortness of breath. Patient had been unwell for the last 2 weeks. He started to have cough and expectoration over the past 2 weeks along with generalized weakness. Then he developed a fever up to 102 Fahrenheit and developed more shortness of breath therefore presented into the emergency room. He was noted to have O2 sat of 90% on room air, however dropping to about 87% with minimal exertion therefore he was admitted. Ct chest revealed a LLL pneumonia. He was started on treatment for community-acquired pneumonia with ceftriaxone 1 g IV every 24 hours and levofloxacin 750 mg p.o. daily. Sputum culture remains pending at the time of this discharge. His white count bumped up to 15.8, now downtrending at 13.6. Patient was febrile to 102 Fahrenheit, however has been afebrile after the first day of admission. Patient's course was also notable for elevated troponins with a trend of 102--120--108. Echocardiogram was performed which showed normal left ventricular size systolic function and wall thickness without regional wall motion abnormalities. LVEF was at 60%. Grade 3 diastolic dysfunction was noted, however patient did not have any current signs of decompensated heart failure. He was maintained on his usual dose of Lasix 40 mg p.o. daily. He had severe tricuspid valve regurgitation which was not new. Cardiology service was consulted. Patient remained chest pain-free during the course of entire admission. Elevated troponins were thought to be a result of type II IA from acute infection. No ischemic evaluation was indicated for now. Patient declined addition of aspirin to his regimen stating he had a history of GI bleed and is not comfortable taking any antiplatelet agents. He is recommended to follow-up with his primary care physician within 3 to 4 days of discharge and then with cardiology as an outpatient Physical Exam Narrative: General: No acute distress, AO x3 HEENT: PERRLA, pupils bilaterally equal and reactive, pallors not present Chest: Normal vesicular breath sounds, no added sounds, equal good air entry bilaterally CVS: S1-S2 regular, no murmurs, no tachycardia, no gallops, no rubs Abdomen: Soft, nontender, no organomegaly, bowel sounds present Neuro: No focal deficits, no facial deformity, AO x3, power 5/5 in all limbs Discharge Data Studies Completed and Pending Completed Studies During Hospitalization Category Date Time Status CT chest wo con [id number] Routine Cat Scan 09/02/24 15:48 Completed XR chest 2V* [id number] Stat Exams 09/02/24 13:29 [place] [id number] Routine Ultrasound 09/02/24 16:26 Completed CV. echo complete* [id number] Routine Ultrasound 09/02/24 15:09 Completed Pending at discharge Category Date Time Status Blood Culture Stat Lab 09/02/24 14:16 Results Sputum Culture and Gram Stain Stat Lab 09/02/24 23:26 Results Radiology Impressions Chest X-Ray 09/02/24 13:29 IMPRESSION: 1. No acute process noted. 2. Chronic RIGHT basilar changes noted. Chest CT 09/02/24 15:48 IMPRESSION: 1. Patchy opacification in the superior segment of the left lower lobe concerning for an infiltrate. 2. Moderate cardiomegaly. 3. Trace right-sided pleural effusion. 4. Other nonacute findings as above. COMMENTS: Consistent with the [employer]'s Incidental Findings Committee white paper (J Am Zia Radiol 2018): Any incidental renal lesion less than 1 cm or classified as too small to characterize, or any incidental cystic renal lesion characterized as simple-appearing, is likely benign. No follow-up imaging is recommended for these lesions per consensus recommendations based on imaging criteria. Venous Duplex 09/02/24 16:26 IMPRESSION: 1. No evidence of deep vein thrombosis. 2. Subcutaneous edema at the level of the calves bilaterally. Laboratory Results WBC 13.66 10^3/uL (3.29-11.43) H 09/04/24 04:37 RBC 3.34 10^6/uL (3.85-5.65) L 09/04/24 04:37 Hgb 9.10 g/dL (11.27-16.99) L 09/04/24 04:37 Hct 29.5 % (37-53) L 09/04/24 04:37 MCV 88.3 fl (82-101) 09/04/24 04:37 MCH 27.2 pg (27-33) 09/04/24 04:37 MCHC 30.8 g/dL (30-55) 09/04/24 04:37 RDW 15.9 % (12.1-15.1) H 09/04/24 04:37 Plt Count 157 10^3/cmm (157-399) 09/04/24 04:37 MPV 10.9 fL (7.4-10.4) H 09/04/24 04:37 Neut % (Auto) 92.0 % 09/04/24 04:37 Lymph % (Auto) 3.2 % 09/04/24 04:37 [place] % (Auto) 4.1 % 09/04/24 04:37 Eos % (Auto) 0.0 % 09/04/24 04:37 Baso % (Auto) 0.1 % 09/04/24 04:37 Neut # (Auto) 12.57 10^3/uL (1.8-7.7) H 09/04/24 04:37 Lymph # (Auto) 0.4 10^3/uL (0.8-4.8) L 09/04/24 04:37 [place] # (Auto) 0.6 10^3/uL (0.2-0.9) 09/04/24 04:37 Eos # (Auto) 0.0 10^3/uL (0.0-0.8) 09/04/24 04:37 Baso # (Auto) 0.0 10^3/uL (0.0-0.1) 09/04/24 04:37 Nucleated RBC % (auto) 0 % 09/04/24 04:37 Nucleated RBCs # 0.0 /100WBC 09/04/24 04:37 D-Dimer 2.24 ug/mLFEU (0-0.59) H 09/02/24 13:53 Sodium 137 mmol/L (136-145) 09/04/24 04:37 Potassium 4.0 mmol/L (3.5-5.1) 09/04/24 04:37 Chloride 106 mmol/L (98-107) 09/04/24 04:37 Carbon Dioxide 20 mmol/L (22-29) L 09/04/24 04:37 Anion Gap 15.0 (5-19) 09/04/24 04:37 BUN 51 mg/dL (8-23) H 09/04/24 04:37 Creatinine 1.6 mg/dL (0.7-1.2) H 09/04/24 04:37 GFR Calculation Not Reportable 09/04/24 04:37 Glucose 142 mg/dL (65-115) H 09/04/24 04:37 POC Glucose 179 mg/dL (70-110) H 09/03/24 16:34 Calculated Osmolality 300 mOsm/kg (285-295) H 09/04/24 04:37 Lactic Acid 1.9 mmol/L (0.5-2.2) 09/02/24 13:53 Calcium 8.5 mg/dL (8.5-10.5) 09/04/24 04:37 Magnesium 2.0 mg/dL (1.7-2.3) 09/02/24 13:53 Total Bilirubin 0.3 mg/dL (0.15-1.2) 09/04/24 04:37 AST 28 U/L (0-40) 09/04/24 04:37 ALT 30 U/L (0-41) 09/04/24 04:37 Alkaline Phosphatase 94 U/L (40-130) 09/04/24 04:37 Troponin T 5th Gen ng/L 108 ng/L (0-15) H* 09/02/24 23:20 Troponin T Baseline 102 ng/L (0-15) H* 09/02/24 13:53 Troponin T 120 Minute 129.1 ng/L (0-15) H 09/02/24 15:43 Delta Troponin T 27.1 ABS# (0-10) H* 09/02/24 15:43 NT-Pro-B Natriuret Pep 5079 pg/mL (0-450) H 09/02/24 13:53 Total Protein 7.8 g/dL (6.6-8.7) 09/04/24 04:37 Albumin 3.0 g/dL (3.5-5.2) L 09/04/24 04:37 Globulin 4.8 g/dL (1.3-4.6) H 09/04/24 04:37 Nasal MRSA (PCR) Not detected (Negative) 09/02/24 15:54 Adenovirus (PCR) Not detected (NOT DETECT) 09/02/24 15:54 C. pneumoniae DNA (PCR) Not detected (NOT DETECT) 09/02/24 15:54 Coronavirus 229E (PCR) Not detected (NOT DETECT) 09/02/24 15:54 Human Metapneumovir PCR Not detected (NOT DETECT) 09/02/24 15:54 Influenza A (H1) PCR Not detected (NOT DETECT) 09/02/24 15:54 Influ A (H1/09) PCR Not detected (NOT DETECT) 09/02/24 15:54 Influenza A (H3) PCR Not detected (NOT DETECT) 09/02/24 15:54 Influenza Type A (PCR) Not detected (NOT DETECT) 09/02/24 15:54 Influenza Type B (PCR) Not detected (NOT DETECT) 09/02/24 15:54 M. pneumoniae (PCR) Not detected (NOT DETECT) 09/02/24 15:54 Parainfluenza 1 (PCR) Not detected (NOT DETECT) 09/02/24 15:54 Parainfluenza 2 (PCR) Not detected (NOT DETECT) 09/02/24 15:54 Parainfluenza 3 (PCR) Not detected (NOT DETECT) 09/02/24 15:54 Parainfluenza 4 (PCR) Not detected (NOT DETECT) 09/02/24 15:54 RSV Type A (PCR) Not detected (NOT DETECT) 09/02/24 15:54 RSV Type B (PCR) Not detected (NOT DETECT) 09/02/24 15:54 Entero/Rhino (PCR) Not detected (NOT DETECT) 09/02/24 15:54 SARS-CoV-2 (PCR) Not detected (NOT DETECT) 09/02/24 15:54 Vitals Last Vital Signs Temp 97.8 F 09/04/24 08:00 Pulse 60 09/04/24 10:18 Resp 20 H 09/04/24 10:18 BP 140/71 09/04/24 10:18 Pulse Ox 96 09/04/24 10:18 O2 Del Method Room Air 09/04/24 08:00 Discharge Plan Discharge Patient Disposition: Home Condition: Stable Prescriptions: New levofloxacin 250 mg Tablet 250 mg PO DAILY 5 Days Qty: 5 0RF amoxicillin-pot clavulanate 875-125 mg tablet 1 tab PO BID 5 Days Qty: 10 0RF fluticasone propion-salmeterol [Advair Diskus] 500-50 mcg/dose blister with device 1 inh inhalation BID 7 Days Qty: 60 0RF Continued (DME) Contour Next Test Strips Strip See Rx Instructions .Route Qty: 50 11RF Rx Instructions: use to test blood sugar once daily prednisone 5 mg tablet 5 mg PO DAILY tamsulosin 0.4 mg capsule 0.4 mg PO DAILY trazodone 100 mg tablet 100 mg PO DAILY PRN (Reason: sleep ) losartan 100 mg tablet 100 mg PO DAILY fluticasone propionate [Flonase Allergy Relief] 50 mcg/actuation spray,suspension 1 spray intranasal BID PRN (Reason: allergies) Rx Instructions: administer into each nostril acetaminophen [Tylenol] 325 mg Tablet 325 mg PO QID PRN (Reason: Pain) furosemide 40 mg tablet 40 mg PO DAILY amlodipine 10 mg tablet 10 mg PO DAILY guaifenesin [Mucinex] 600 mg Tablet Extended Release 12hr 600 mg PO BID Discharge Orders: Discharge Order (Routine); Ordered 09/04/24 Ordered By: Marissa Joel Referrals: Srinivasa Anderson MD [Primary Care Provider, Family Practice] - 09/07/24 1:00 pm Referral Note: hospital discharge follow up for pneumonia Discharge Diet: Cardiac Discharge Activity: Resume usual activity Patient Instructions: Amoxicillin (By mouth), Fluticasone (By breathing), Levofloxacin (By mouth), Heart Failure (DC), Acute Kidney Injury (DC), Community Acquired Pneumonia (DC), CHF Stoplight, Chest Pain Stoplight, Opioid Safety, Pneumonia Stoplight Discharge Attestations Time Spent in Discharge Care*: greater than 30 min Quality Metrics Clinical Quality Measures [ No reported AMI, CVA or VTE this stay] Coding Level of Care Code Acute Code for Chg Fwd Diagnoses Pneumonia of left lower lobe due to infectious organism J18.9 Pneumonia type: due to unspecified organism Elevated troponin R79.89 Chronic diastolic congestive heart failure I50.32 Heart failure type: diastolic Persistent atrial fibrillation I48.19 Atrial fibrillation type: persistent (not longstanding) JOSSELYN (acute kidney injury) N17.9
== END 2024-09-04 11:16 | disposition home or self-care (01) | DRG 193 ==
LOC: ER 15:19 → CSU 17:27
PROVIDERS: Admitting Provider Student in an Organized Health Care Education/Training Program; Emergency Provider Physician Assistant; PCP Family Medicine; Visit Provider Student in an Organized Health Care Education/Training Program
DX: J18.9 Pneumonia, unspecified organism (principal); I21.A1 Myocardial infarction type 2; I48.19 Other persistent atrial fibrillation; N17.9 Acute kidney failure, unspecified; I50.32 Chronic diastolic (congestive) heart failure; I11.0 Hypertensive heart disease with heart failure; Z95.2 Presence of prosthetic heart valve; E11.9 Type 2 diabetes mellitus without complications; K21.9 Gastro-esophageal reflux disease without esophagitis; Z86.711 Personal history of pulmonary embolism; Z87.11 Personal history of peptic ulcer disease; Z79.891 Long term (current) use of opiate analgesic; M06.9 Rheumatoid arthritis, unspecified; M35.00 Sjogren syndrome, unspecified; Z87.891 Personal history of nicotine dependence
CPT/HCPCS: 36415; 36416; 51798; 71046; 71250; 80053; 82962; 83605; 83735; 83880; 84484; 85025; 85378; 87040; 87070; 87086; 87205; 87486; 87581; 87633; 93005; 93306; 93970; 94640; 96365; 96375; 99285; J0692; J0696; J2919; J3490; J7512; J9999

== ENCOUNTER 2024-09-20 12:08 | Emergency (ER) | payer MEDICARE, SELFPAY ==
[2024-09-20 12:10] VITALS: BP 117/64; PULSE 69; RESP 16; TEMP 36.7; O2SAT 97; BMI 21.2
--- NOTE | 2024-09-20 13:06 | W.ED.SKABFB ---
HPI - Skin/Abscess/Foreign Bdy General: Chief complaint: Skin/Abscess/Foreign Body Stated complaint: insect bite rt ankle Time Seen by Provider: 09/20/24 13:02 History of Present Illness: 89-year-old male patient presents to the emergency department complaints of bug bite to left lower extremity patient states he woke up today and there was some redness and warmth around the bug bite and he is concerned for infection. Patient denies any denies any calf pain patient denies any history of blood clots. Patient denies any chest pain or shortness of breath. Patient denies any fevers. Related Data Home Medications ?Medication ?Instructions ?Recorded ?Confirmed acetaminophen 325 mg tablet 325 mg PO QID PRN Pain 01/24/24 09/02/24 (Tylenol) fluticasone propionate 50 1 spray intranasal BID PRN 01/24/24 09/02/24 mcg/actuation nasal allergies spray,suspension (Flonase Allergy Relief) losartan 100 mg tablet 100 mg PO DAILY 01/24/24 09/02/24 prednisone 5 mg tablet 5 mg PO DAILY 01/24/24 09/02/24 tamsulosin 0.4 mg capsule 0.4 mg PO DAILY 01/24/24 09/02/24 trazodone 100 mg tablet 100 mg PO DAILY PRN sleep 01/24/24 09/02/24 amlodipine 10 mg tablet 10 mg PO DAILY 03/17/24 09/02/24 furosemide 40 mg tablet 40 mg PO DAILY 03/17/24 09/02/24 guaifenesin 600 mg tablet, 600 mg PO BID 09/02/24 09/02/24 extended release 12 hr (Mucinex) Previous Rx's ?Medication ?Instructions ?Recorded blood sugar diagnostic (Contour #50 ea 05/18/22 Next Test Strips) clindamycin HCl 300 mg capsule 300 mg PO Q8H 10 days #30 caps 09/20/24 (Cleocin HCl) Allergies Allergy/AdvReac Type Severity Reaction Status Date / Time No Known Allergies Allergy Verified 09/20/24 12:17 Review of Systems General: Reports: 10 or more systems reviewed and unremarkable except in HPI and below PFSH ED PFSH: Medical History (Updated 09/20/24 @ 13:12 by Rebekah Rich NP) History of transcatheter aortic valve replacement (TAVR) History of colon polyps Impairment of balance Sleeplessness Left inguinal hernia Urinary hesitancy Nocturia more than twice per night Change in stool habits Abdominal discomfort Hx of basal cell carcinoma Allergic rhinitis Chronic neck pain Type 2 diabetes mellitus Diet managed Chronic anticoagulation INR goal 2-3 Hx pulmonary embolism Hypertension Surgical History (Updated 09/05/24 @ 00:00 by AUTUMN Horton) History of inguinal hernia repair History of mitral valve repair History of colonoscopy History of esophagogastroduodenoscopy Hx of cataract surgery Family History Other CAD (coronary artery disease) Cancer Diabetes Heart attack Hyperlipidemia Hypertension Rheumatoid arthritis Stroke Denies family history of Lupus Chronic kidney disease (CKD) Social History Smoking and tobacco/nicotine status: former use of tobacco/nicotine Quit status (tobacco/nicotine): has quit using Former quit date comment: over 40 years ago Alcohol intake: current Alcohol intake frequency: few times a week Substance/Drug Use: never Physical Exam Const: COMMON NORMALS: patient oriented x3 Cardio: COMMON NORMALS: regular rate and regular rhythm RATE: regular rate RHYTHM: regular rhythm Extremity: COMMON NORMALS: normal to inspection and full ROM Neuro: COMMON NORMALS: patient oriented x3, CN's II-XII intact bilaterally and moves all extremities Psych: COMMON NORMALS: mental status grossly normal and Normal thought process present THOUGHT PROCESS: Normal thought process present Skin: COMMON NORMALS: no wounds Course Vital Signs: Vital signs: Vital Signs Temperature 98.1 F 09/20/24 12:10 Pulse Rate 69 09/20/24 12:10 Respiratory Rate 16 09/20/24 12:10 Blood Pressure 117/64 09/20/24 12:10 Pulse Oximetry 97 09/20/24 12:10 MDM - Skin/Abscess/Foreign Bdy Medicial Decision Making Patient is well-appearing nontoxic in no acute distress. 89-year-old male patient presents to the emergency department complaints of bug bite to left lower extremity patient states he woke up today and there was some redness and warmth around the bug bite and he is concerned for infection. Patient denies any denies any calf pain patient denies any history of blood clots. Patient denies any chest pain or shortness of breath. Patient denies any fevers. Patient has about a 4 cm erythemic area surrounding what patient suspects to be a bug bite. I have marked this for reference for patient to monitor for spreading of cellulitis. Patient does not have any calf tenderness or calf swelling the erythema is isolated to the area of concern for a bug bite. Patient is afebrile. Patient vital signs are stable. Given the concerns for cellulitis I will go ahead and place patient on clindamycin at this time. I have advised patient of home care instructions as well as follow-up and return precautions. No radiology studies performed this visit Discharge Plan Discharge Patient Disposition: Home Clinical Impression: Cellulitis Condition: Stable Prescriptions: New clindamycin HCl [Cleocin HCl] 300 mg capsule 300 mg PO Q8H 10 Days Qty: 30 0RF No Action (DME) Contour Next Test Strips Strip See Rx Instructions .Route Qty: 50 11RF Rx Instructions: use to test blood sugar once daily prednisone 5 mg tablet 5 mg PO DAILY tamsulosin 0.4 mg capsule 0.4 mg PO DAILY trazodone 100 mg tablet 100 mg PO DAILY PRN (Reason: sleep ) losartan 100 mg tablet 100 mg PO DAILY fluticasone propionate [Flonase Allergy Relief] 50 mcg/actuation spray,suspension 1 spray intranasal BID PRN (Reason: allergies) Rx Instructions: administer into each nostril acetaminophen [Tylenol] 325 mg Tablet 325 mg PO QID PRN (Reason: Pain) furosemide 40 mg tablet 40 mg PO DAILY amlodipine 10 mg tablet 10 mg PO DAILY guaifenesin [Mucinex] 600 mg Tablet Extended Release 12hr 600 mg PO BID Discharge Orders: Discharge ED (Routine); Ordered 09/20/24 Ordered By: Rebekah Rich Referrals: Srinivasa Anderson MD [Primary Care Provider, Family Practice] Discharge Diet: Advance as tolerated Discharge Activity: Increase activity as tolerated Patient Instructions: Opioid Safety, Pain Management, Cellulitis (ED) Activity Restrictions/Additional Instructions: Please take medications as prescribed. Please follow discharge care instructions as well as home care. Please return to the emergency department with any worsening of symptoms or concerns. Print Language: Spanish Coding Level of Care Code ED Geology Technician for Steffany Redmond
[2024-09-20 13:21] VITALS: BP 137/64; PULSE 66; O2SAT 96
--- NOTE | 2024-09-20 13:23 | PC.NURSE ---
PT WOUND BORDERS MARKED PRIOR TO D/C.
== END 2024-09-20 13:23 | disposition home or self-care (01) ==
PROVIDERS: Emergency Provider Registered Nurse; PCP Family Medicine
DX: L03.116 Cellulitis of left lower limb (principal); E11.9 Type 2 diabetes mellitus without complications; I10 Essential (primary) hypertension; Z87.891 Personal history of nicotine dependence
CPT/HCPCS: 99283

== ENCOUNTER 2024-09-25 21:24 | Emergency (ER) | payer MEDICARE, SELFPAY ==
[2024-09-25 21:25] VITALS: BP 156/81; PULSE 67; RESP 16; TEMP 36.7; O2SAT 98; BMI 21.2
--- NOTE | 2024-09-26 00:27 | W.ED.SKABFB ---
HPI - Skin/Abscess/Foreign Bdy General: Chief complaint: Skin/Abscess/Foreign Body Stated complaint: recluse bite worse since antibiotics Time Seen by Provider: 09/26/24 00:02 History of Present Illness: Patient comes in with concerns for possible worsening infection of his lower right leg. States that he was seen here about 6 days ago after what he suspects was a brown recluse bite. At that time he had erythema surrounding the bite region and was started on clindamycin. He states that the redness does not seem to be getting better. On physical exam he does have a less than half centimeter indurated region on his right lower anterior leg with surrounding erythema. It does not look significantly worse than the description from 6 days ago. He however does have some fluctuance in the middle of the indurated region. Related Data Home Medications ?Medication ?Instructions ?Recorded ?Confirmed acetaminophen 325 mg tablet 325 mg PO QID PRN Pain 01/24/24 09/02/24 (Tylenol) fluticasone propionate 50 1 spray intranasal BID PRN 01/24/24 09/02/24 mcg/actuation nasal allergies spray,suspension (Flonase Allergy Relief) losartan 100 mg tablet 100 mg PO DAILY 01/24/24 09/02/24 prednisone 5 mg tablet 5 mg PO DAILY 01/24/24 09/02/24 tamsulosin 0.4 mg capsule 0.4 mg PO DAILY 01/24/24 09/02/24 trazodone 100 mg tablet 100 mg PO DAILY PRN sleep 01/24/24 09/02/24 amlodipine 10 mg tablet 10 mg PO DAILY 03/17/24 09/02/24 furosemide 40 mg tablet 40 mg PO DAILY 03/17/24 09/02/24 guaifenesin 600 mg tablet, 600 mg PO BID 09/02/24 09/02/24 extended release 12 hr (Mucinex) Previous Rx's ?Medication ?Instructions ?Recorded blood sugar diagnostic (Contour #50 ea 05/18/22 Next Test Strips) clindamycin HCl 300 mg capsule 300 mg PO Q8H 10 days #30 caps 09/20/24 (Cleocin HCl) cephalexin 500 mg capsule 500 mg PO BID 10 days #20 caps 09/26/24 Allergies Allergy/AdvReac Type Severity Reaction Status Date / Time No Known Allergies Allergy Verified 09/20/24 12:17 Review of Systems Skin/Breast: Reports: other (Redness, swelling of right lower leg, with abscess) PFSH ED PFSH: Medical History (Updated 09/26/24 @ 00:31 by Onesimo Pinto MD) History of transcatheter aortic valve replacement (TAVR) History of colon polyps Impairment of balance Sleeplessness Left inguinal hernia Urinary hesitancy Nocturia more than twice per night Change in stool habits Abdominal discomfort Hx of basal cell carcinoma Allergic rhinitis Chronic neck pain Type 2 diabetes mellitus Diet managed Chronic anticoagulation INR goal 2-3 Hx pulmonary embolism Hypertension Surgical History (Updated 09/05/24 @ 00:00 by AUTUMN Horton) History of inguinal hernia repair History of mitral valve repair History of colonoscopy History of esophagogastroduodenoscopy Hx of cataract surgery Family History Other CAD (coronary artery disease) Cancer Diabetes Heart attack Hyperlipidemia Hypertension Rheumatoid arthritis Stroke Denies family history of Lupus Chronic kidney disease (CKD) Social History Smoking and tobacco/nicotine status: former use of tobacco/nicotine Quit status (tobacco/nicotine): has quit using Former quit date comment: over 40 years ago Alcohol intake: current Alcohol intake frequency: few times a week Substance/Drug Use: never Physical Exam Const: COMMON NORMALS: no acute distress and healthy appearing HENMT: COMMON NORMALS: normocephalic and atraumatic HEAD & SCALP: normocephalic and atraumatic Extremity: COMMON NORMALS: full ROM Skin: NARRATIVE SKIN EXAM: less than half centimeter indurated region on his right lower anterior leg with surrounding erythema Procedures Abscess I/D Site: lower extremity Side (if applicable): right Technique: incised with #11 blade Amount of fluid expressed (mL): 2 Packing used?: none Complications: other (None) Course Vital Signs: Vital signs: Vital Signs Temperature 98.0 F 09/25/24 21:25 Pulse Rate 67 09/25/24 21:25 Respiratory Rate 16 09/25/24 21:25 Blood Pressure 156/81 09/25/24 21:25 Pulse Oximetry 98 09/25/24 21:25 Oxygen Delivery Me thod Room Air 09/25/24 21:25 MDM - Skin/Abscess/Foreign Bdy Medicial Decision Making I gently opened the indurated region and expressed purulent material. We will change him to Keflex and discharged with precautions to return for worsening or changing symptoms. We discussed wound care. We also discussed symptoms that should prompt immediate return to the emergency department. No radiology studies performed this visit Discharge Plan Discharge Patient Disposition: Home Clinical Impression: Cellulitis Condition: Stable Prescriptions: New cephalexin 500 mg capsule 500 mg PO BID 10 Days Qty: 20 0RF No Action (DME) Contour Next Test Strips Strip See Rx Instructions .Route Qty: 50 11RF Rx Instructions: use to test blood sugar once daily prednisone 5 mg tablet 5 mg PO DAILY tamsulosin 0.4 mg capsule 0.4 mg PO DAILY trazodone 100 mg tablet 100 mg PO DAILY PRN (Reason: sleep ) losartan 100 mg tablet 100 mg PO DAILY fluticasone propionate [Flonase Allergy Relief] 50 mcg/actuation spray,suspension 1 spray intranasal BID PRN (Reason: allergies) Rx Instructions: administer into each nostril acetaminophen [Tylenol] 325 mg Tablet 325 mg PO QID PRN (Reason: Pain) furosemide 40 mg tablet 40 mg PO DAILY amlodipine 10 mg tablet 10 mg PO DAILY guaifenesin [Mucinex] 600 mg Tablet Extended Release 12hr 600 mg PO BID clindamycin HCl [Cleocin HCl] 300 mg capsule 300 mg PO Q8H 10 Days Qty: 30 0RF Discharge Orders: Discharge ED (Routine); Ordered 09/26/24 Ordered By: Onesimo Pinto Referrals: Srinivasa Anderson MD [Primary Care Provider, Family Practice] Patient Instructions: Cellulitis Print Language: Jamaican Coding Level of Care Code ED Guzzler Builder for Steffany Redmond
[2024-09-26 00:47] LABS: Basophils % 0.3 %; Eosinophils # 0.2 10^3/uL (0.0-0.8); Eosinophils % 3.1 %; Hematocrit 30.2 % (37-53); Lymphocytes # 0.9 10^3/uL (0.8-4.8); Lymphocytes % 14.1 %; Mean Corpuscular HGB Conc 31.8 g/dL (30-55); Mean Corpuscular Volume 85.1 fl (82-101); Mean Platelet Volume 9.6 fL (7.4-10.4); Monocytes # 0.7 10^3/uL (0.2-0.9); Monocytes % 11.1 %; Neutrophils # 4.31 10^3/uL (1.8-7.7); Neutrophils % 70.4 %; Nucleated Red Blood Cells % 0 %; Platelet Count 200 10^3/cmm (157-399); Red Blood Count 3.55 10^6/uL (3.85-5.65); Red Cell Distribution Width 15.6 % (12.1-15.1); White Blood Count 6.12 10^3/uL (3.29-11.43)
[2024-09-26] MEDS: cephALEXin 500 mg Capsule PO (00:51)
[2024-09-26 01:05] LABS: Anion Gap 14.4 (5-19); Blood Urea Nitrogen 30 mg/dL (8-23); Calcium 8.7 mg/dL (8.5-10.5); Carbon Dioxide 22 mmol/L (22-29); Chloride 104 mmol/L (98-107); Creatinine Clr Calc Pharmacy 47.4687; Glucose 112 mg/dL (65-115); Osmolality Calculated 289 mOsm/kg (285-295); Potassium 4.4 mmol/L (3.5-5.1); Sodium 136 mmol/L (136-145)
[2024-09-26 01:22] VITALS: BP 153/74; PULSE 60; RESP 17; O2SAT 97
--- NOTE | 2024-09-26 01:25 | PC.NURSE ---
Wound dressed with non adherent dressing and held in place with leoncio wrap.
== END 2024-09-26 01:15 | disposition home or self-care (01) ==
PROVIDERS: Emergency Provider Emergency Medicine; PCP Family Medicine
DX: L03.115 Cellulitis of right lower limb (principal); Z87.891 Personal history of nicotine dependence; E11.9 Type 2 diabetes mellitus without complications; I10 Essential (primary) hypertension
CPT/HCPCS: 10060; 36415; 80048; 85025; 99283; J9999

== ENCOUNTER → 2024-09-29 10:48 | Outpatient (BNVA) | payer MEDICARE, SELFPAY | PROVIDERS: PCP Family Medicine; Visit Provider Nurse Practitioner Family | DX: L72.0 Epidermal cyst (principal); H02.105 Unspecified ectropion of left lower eyelid; L82.1 Other seborrheic keratosis; D18.01 Hemangioma of skin and subcutaneous tissue; Z85.820 Personal history of malignant melanoma of skin; Z08 Encounter for follow-up examination after completed treatment for malignant neoplasm; Z85.828 Personal history of other malignant neoplasm of skin; T63.331A Toxic effect of venom of brown recluse spider, accidental (unintentional), initial encounter; X58.XXXA Exposure to other specified factors, initial encounter; L57.0 Actinic keratosis | CPT/HCPCS: 17000; 99213 ==

== ENCOUNTER 2024-10-05 09:09 | Emergency (ER) | payer MEDICARE, SELFPAY ==
[2024-10-05 09:22] VITALS: BP 147/59; PULSE 77; RESP 17; TEMP 36.4; O2SAT 99; BMI 21.2
--- NOTE | 2024-10-05 10:16 | XRR_ITS ---
PROCEDURE INFORMATION: Exam: XR Right Ankle Exam date and time: 10/05/2024 10:38 AM Age: 89 years old Clinical indication: Pain; Ankle; Right TECHNIQUE: Imaging protocol: Radiologic exam of the right ankle. Views: 3 or more views. COMPARISON: [place] [id number] 09/02/2024 5:42 PM FINDINGS: Bones/joints: Negative for acute bone abnormality. Soft tissues: Vascular calcifications posterior ankle XR/XR ankle RT min 3V* [id number] IMPRESSION: 1. No acute findings. 2. Vascular calcifications posterior ankle
[2024-10-05 11:34] LABS: Basophils % 0.5 %; Eosinophils % 0.3 %; Hematocrit 36.5 % (37-53); Lymphocytes # 1.4 10^3/uL (0.8-4.8); Lymphocytes % 24.1 %; Mean Corpuscular HGB Conc 30.7 g/dL (30-55); Mean Platelet Volume 12.9 fL (7.4-10.4); Monocytes # 0.5 10^3/uL (0.2-0.9); Monocytes % 8.1 %; Neutrophils % 65.7 %; Nucleated Red Blood Cells % 0 %; Platelet Count 129 10^3/cmm (157-399); Positive C 1; Red Blood Count 4.15 10^6/uL (3.85-5.65); Red Cell Distribution Width 16.2 % (12.1-15.1); White Blood Count 5.94 10^3/uL (3.29-11.43)
[2024-10-05 11:54] LABS: Alanine Aminotransferase 19 U/L (0-41); Albumin Level 3.6 g/dL (3.5-5.2); Alkaline Phosphatase 125 U/L (40-130); Anion Gap 16.3 (5-19); Aspartate Amino Transferase 27 U/L (0-40); Blood Urea Nitrogen 21 mg/dL (8-23); Calcium 9.2 mg/dL (8.5-10.5); Carbon Dioxide 20 mmol/L (22-29); Chloride 107 mmol/L (98-107); Creatinine Clr Calc Pharmacy 61.7094; Globulin 5.6 g/dL (1.3-4.6); Glucose 105 mg/dL (65-115); Osmolality Calculated 291 mOsm/kg (285-295); Potassium 4.3 mmol/L (3.5-5.1); Sodium 139 mmol/L (136-145); Total Bilirubin 0.6 mg/dL (0.15-1.2); Total Protein 9.2 g/dL (6.6-8.7)
--- NOTE | 2024-10-05 12:12 | W.ED.EXTPRO ---
HPI - Extremity Problem General: Chief complaint: Extremity Problem,Nontraumatic Stated complaint: Cellulitis Time Seen by Provider: 10/05/24 09:10 Source: patient Mode of arrival: ambulatory Limitations: no limitations History of Present Illness: 89-year-old male states he been having some erythema to his right lower leg over the last 2 weeks states has been on antibiotics did not had improved but overnight had some slight more erythema he denies any fevers. Has had no drainage denies any pain. Denies any injuries Associated symptoms: Reports rash; Deny chest pain or fever(s) Related Data Home Medications ?Medication ?Instructions ?Recorded ?Confirmed acetaminophen 325 mg tablet 325 mg PO QID PRN Pain 01/24/24 09/02/24 (Tylenol) fluticasone propionate 50 1 spray intranasal BID PRN 01/24/24 09/02/24 mcg/actuation nasal allergies spray,suspension (Flonase Allergy Relief) losartan 100 mg tablet 100 mg PO DAILY 01/24/24 09/02/24 prednisone 5 mg tablet 5 mg PO DAILY 01/24/24 09/02/24 tamsulosin 0.4 mg capsule 0.4 mg PO DAILY 01/24/24 09/02/24 trazodone 100 mg tablet 100 mg PO DAILY PRN sleep 01/24/24 09/02/24 amlodipine 10 mg tablet 10 mg PO DAILY 03/17/24 09/02/24 furosemide 40 mg tablet 40 mg PO DAILY 03/17/24 09/02/24 guaifenesin 600 mg tablet, 600 mg PO BID 09/02/24 09/02/24 extended release 12 hr (Mucinex) Previous Rx's ?Medication ?Instructions ?Recorded blood sugar diagnostic (Contour #[id number] ea 05/18/22 Next Test Strips) cephalexin 500 mg capsule 500 mg PO BID 10 days #20 caps 09/26/24 amoxicillin 500 mg-potassium 1 tab PO BID #14 tabs 10/05/24 clavulanate 125 mg tablet (Augmentin) Allergies Allergy/AdvReac Type Severity Reaction Status Date / Time No Known Allergies Allergy Verified 09/20/24 12:17 Review of Systems Const: Denies: fever(s), chills, body aches or change in appetite ENMT: Denies: throat pain or dental pain Card: Denies: chest pain Resp: Denies: dyspnea GI: Denies: abdominal pain, nausea, vomiting or diarrhea Musc: Denies: neck pain or back pain Skin/Breast: Reports: rash and erythema Neuro: Denies: headache(s) PFSH ED PFSH: Medical History History of transcatheter aortic valve replacement (TAVR) History of colon polyps Impairment of balance Sleeplessness Left inguinal hernia Urinary hesitancy Nocturia more than twice per night Change in stool habits Abdominal discomfort Hx of basal cell carcinoma Allergic rhinitis Chronic neck pain Type 2 diabetes mellitus Diet managed Chronic anticoagulation INR goal 2-3 Hx pulmonary embolism Hypertension Surgical History History of inguinal hernia repair History of mitral valve repair History of colonoscopy History of esophagogastroduodenoscopy Hx of cataract surgery Family History Other CAD (coronary artery disease) Cancer Diabetes Heart attack Hyperlipidemia Hypertension Rheumatoid arthritis Stroke Denies family history of Lupus Chronic kidney disease (CKD) Social History Smoking and tobacco/nicotine status: former use of tobacco/nicotine Quit status (tobacco/nicotine): has quit using Former quit date comment: over 40 years ago Alcohol intake: current Alcohol intake frequency: few times a week Substance/Drug Use: never Physical Exam Const: COMMON NORMALS: no acute distress, patient oriented x3 and healthy appearing HENMT: COMMON NORMALS: normocephalic and atraumatic HEAD & SCALP: normocephalic and atraumatic Eye: COMMON NORMALS: conjunctivae normal CONJUNCTIVA: Yes conjunctivae normal Neck/C-Spine: COMMON NORMALS: full ROM and supple Chest: COMMONS NORMALS: normal inspection of the chest Resp: COMMON NORMALS: normal respiratory effort Cardio: COMMON NORMALS: regular rate RATE: regular rate Extremity: NARRATIVE EXTREMITY EXAM: Erythema noted to right lower ankle slightly warm to touch distal pulse sensation intact no abscess formation Neuro: COMMON NORMALS: patient oriented x3, moves all extremities and no focal motor deficits Psych: COMMON NORMALS: mental status grossly normal, Normal thought process present and cooperative THOUGHT PROCESS: Normal thought process present Skin: COMMON NORMALS: no rashes or lesions noted and no wounds GENERAL SKIN EXAM: no rashes or lesions noted Course Vital Signs: Vital signs: Vital Signs Temperature 97.6 F 10/05/24 09:22 Pulse Rate 77 10/05/24 09:22 Respiratory Rate 17 10/05/24 09:22 Blood Pressure 147/59 10/05/24 09:22 Pulse Oximetry 99 10/05/24 09:22 Oxygen Delivery Me thod Room Air 10/05/24 09:22 MDM - Extremity (Nontraumatic) Medical Decision Making Patient presents here with mild cellulitis white counts normal we will start him on Augmentin he is follow-up with PCP and returning worsening. Medical Records I reviewed the patient's medical records. Lab Data I reviewed the patient's lab results. 10/05/24 11:00 10/05/24 11:00 Radiology Impressions Ankle X-Ray 10/05/24 10:16 IMPRESSION: 1. No acute findings. 2. Vascular calcifications posterior ankle Laboratory Results WBC 5.94 10^3/uL (3.29-11.43) 10/05/24 11:00 RBC 4.15 10^6/uL (3.85-5.65) 10/05/24 11:00 Hgb 11.20 g/dL (11.27-16.99) L 10/05/24 11:00 Hct 36.5 % (37-53) L 10/05/24 11:00 MCV 88.0 fl (82-101) 10/05/24 11:00 MCH 27.0 pg (27-33) 10/05/24 11:00 MCHC 30.7 g/dL (30-55) 10/05/24 11:00 RDW 16.2 % (12.1-15.1) H 10/05/24 11:00 Plt Count 129 10^3/cmm (157-399) L 10/05/24 11:00 MPV 12.9 fL (7.4-10.4) H 10/05/24 11:00 Neut % (Auto) 65.7 % 10/05/24 11:00 Lymph % (Auto) 24.1 % 10/05/24 11:00 [place] % (Auto) 8.1 % 10/05/24 11:00 Eos % (Auto) 0.3 % 10/05/24 11:00 Baso % (Auto) 0.5 % 10/05/24 11:00 Neut # (Auto) 3.90 10^3/uL (1.8-7.7) 10/05/24 11:00 Lymph # (Auto) 1.4 10^3/uL (0.8-4.8) 10/05/24 11:00 [place] # (Auto) 0.5 10^3/uL (0.2-0.9) 10/05/24 11:00 Eos # (Auto) 0.0 10^3/uL (0.0-0.8) 10/05/24 11:00 Baso # (Auto) 0.0 10^3/uL (0.0-0.1) 10/05/24 11:00 Nucleated RBC % (auto) 0 % 10/05/24 11:00 Nucleated RBCs # 0.0 /100WBC 10/05/24 11:00 Sodium 139 mmol/L (136-145) 10/05/24 11:00 Potassium 4.3 mmol/L (3.5-5.1) 10/05/24 11:00 Chloride 107 mmol/L (98-107) 10/05/24 11:00 Carbon Dioxide 20 mmol/L (22-29) L 10/05/24 11:00 Anion Gap 16.3 (5-19) 10/05/24 11:00 BUN 21 mg/dL (8-23) 10/05/24 11:00 Creatinine 1.0 mg/dL (0.7-1.2) 10/05/24 11:00 GFR Calculation Not Reportable 10/05/24 11:00 Glucose 105 mg/dL (65-115) 10/05/24 11:00 Calculated Osmolality 291 mOsm/kg (285-295) 10/05/24 11:00 Calcium 9.2 mg/dL (8.5-10.5) 10/05/24 11:00 Total Bilirubin 0.6 mg/dL (0.15-1.2) 10/05/24 11:00 AST 27 U/L (0-40) 10/05/24 11:00 ALT 19 U/L (0-41) 10/05/24 11:00 Alkaline Phosphatase 125 U/L (40-130) 10/05/24 11:00 Total Protein 9.2 g/dL (6.6-8.7) H 10/05/24 11:00 Albumin 3.6 g/dL (3.5-5.2) 10/05/24 11:00 Globulin 5.6 g/dL (1.3-4.6) H 10/05/24 11:00 All radiology interpretation(s) finalized by discharge Discharge Plan Discharge Patient Disposition: Home Clinical Impression: Cellulitis of leg, right Condition: Stable Prescriptions: New amoxicillin-pot clavulanate [Augmentin] 500-125 mg tablet 1 tab PO BID Qty: 14 0RF No Action (DME) Contour Next Test Strips Strip See Rx Instructions .Route Qty: 50 11RF Rx Instructions: use to test blood sugar once daily prednisone 5 mg tablet 5 mg PO DAILY tamsulosin 0.4 mg capsule 0.4 mg PO DAILY trazodone 100 mg tablet 100 mg PO DAILY PRN (Reason: sleep ) losartan 100 mg tablet 100 mg PO DAILY fluticasone propionate [Flonase Allergy Relief] 50 mcg/actuation spray,suspension 1 spray intranasal BID PRN (Reason: allergies) Rx Instructions: administer into each nostril acetaminophen [Tylenol] 325 mg Tablet 325 mg PO QID PRN (Reason: Pain) furosemide 40 mg tablet 40 mg PO DAILY amlodipine 10 mg tablet 10 mg PO DAILY guaifenesin [Mucinex] 600 mg Tablet Extended Release 12hr 600 mg PO BID cephalexin 500 mg capsule 500 mg PO BID 10 Days Qty: 20 0RF Discharge Orders: Discharge ED (Routine); Ordered 10/05/24 Ordered By: Allyssa Chaves Referrals: Srinivasa Anderson MD [Primary Care Provider, Family Practice] - 4-7 days Discharge Diet: Advance as tolerated Discharge Activity: Resume usual activity Patient Instructions: Cellulitis (ED) Print Language: Telugu Coding Level of Care Code ED Mailing Machine Helper for Steffany Redmond
[2024-10-05 12:23] VITALS: BP 141/65; PULSE 62; RESP 16; O2SAT 96
== END 2024-10-05 12:31 | disposition home or self-care (01) ==
PROVIDERS: Family Medicine; Emergency Provider Emergency Medicine; PCP Family Medicine
DX: L03.115 Cellulitis of right lower limb (principal); Z87.891 Personal history of nicotine dependence; E11.9 Type 2 diabetes mellitus without complications; I10 Essential (primary) hypertension
CPT/HCPCS: 36415; 73610; 80053; 85025; 99284

== ENCOUNTER → 2024-10-08 10:11 | Outpatient (BNVA) | payer MEDICARE, SELFPAY | PROVIDERS: PCP Family Medicine; Visit Provider Podiatrist Foot & Ankle Surgery | DX: L97.512 Non-pressure chronic ulcer of other part of right foot with fat layer exposed (principal); G62.9 Polyneuropathy, unspecified; I73.9 Peripheral vascular disease, unspecified | CPT/HCPCS: 99214 ==

== ENCOUNTER → 2024-10-22 09:03 | Outpatient (BNVA) | payer MEDICARE, SELFPAY | PROVIDERS: PCP Family Medicine; Visit Provider Podiatrist Foot & Ankle Surgery | DX: I73.9 Peripheral vascular disease, unspecified (principal); L97.512 Non-pressure chronic ulcer of other part of right foot with fat layer exposed; G62.9 Polyneuropathy, unspecified | CPT/HCPCS: 11721; 99214 ==

== ENCOUNTER → 2024-10-28 10:33 | Outpatient (BNVA) | payer MEDICARE, SELFPAY | PROVIDERS: PCP Family Medicine; Visit Provider Nurse Practitioner Family | DX: L57.8 Other skin changes due to chronic exposure to nonionizing radiation (principal); Z85.820 Personal history of malignant melanoma of skin; Z08 Encounter for follow-up examination after completed treatment for malignant neoplasm; Z85.828 Personal history of other malignant neoplasm of skin; T63.331A Toxic effect of venom of brown recluse spider, accidental (unintentional), initial encounter; L82.0 Inflamed seborrheic keratosis; R58 Hemorrhage, not elsewhere classified; R20.8 Other disturbances of skin sensation; L53.8 Other specified erythematous conditions; L29.89 Other pruritus; Z78.9 Other specified health status; L57.0 Actinic keratosis | CPT/HCPCS: 17000; 17110; 99214 ==

== ENCOUNTER 2024-11-02 09:09 | Emergency (ER) | payer MEDICARE, SELFPAY ==
[2024-11-02 09:13] VITALS: BP 147/70; PULSE 64; RESP 16; TEMP 36.4; O2SAT 97; BMI 21.2
--- OUTSIDE RECORDS SUMMARY | 2024-11-02 09:15 | XMS_ITS | Encounter Summary ---
Author Organization [facility] Address [address] [place] [address] Care Team Providers Care Drapery And Upholstery Measurer Name Role Phone Srinivasa Anderson MD Primary Care Provider [phone] Reason for Visit * Reason Comments Needs Orders Written Encounter Details Date Type Department Care Team (Late st Contact Info) Description 10/30/2024 Telephone [facility] [employer]*[facility] [place] [place] [phone] rSinivasa Anderson MD [address] [place] [address] Needs Orders Written Social History Tobacco Use Types Packs/Day Years Used Date Smoking Tobacco: Never Smokeless Tobacco: Former Alcohol Use Standard Drinks/Week Comments Yes 0 (1 standard drink = 0.6 oz pur e alcohol) occ Feeling Safe Answer Date Recorded Are you in a relationship wi th someone who hurts you emotionally and/or physically? 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 The extent of imaging needed will depend a bit on his examination * Telephone Encounter - Giana Chapa LPN - 10/30/2024 9:35 AM CDT 10/30/2024 9:35 AM Person calling: Sultana Provider: Dr Anderson Called and talked to patients and she states that he slipped and twisted his left knee last week. He states that its still painful after a week of resting it. She states that he is able to walk on it but it is painful. She reports that its still swollen and discolored. She is requesting a CT or MRI of the knee. Advised that he will need to be evaluated before imagining. She states that she can't drive in [place] and wants Dr Anderson to order imaging at [facility]. Requesting: Advise. Giana CRAIN * Telephone Encounter - Elisa Lai - 10/30/2024 9:01 AM CDT Copied from [facility] #[id number]. Topic: CPA Information Request - Order or Referral Request >> Oct 30, 2024 9:00 AM Elisa Suero wrote: Caller Name: Sultana (Spouse) on [facility] Patient/Caregiver Callback Number: [phone] Call Notes: Spouse would like a call. Caller is requesting: New Non Lab Order Has the patient been seen for this issue? Yes Order: MRI or CT Scan on L Knee Reason for Request: Soft Tissue Damage, Fall from last week Preferred Facility/Location: [facility] documented in this encounter Plan of Treatment Upcoming Encounters Date Type Department Care Team (Late st Contact Info) Description 11/20/2024 9:20 AM CDT Office Visit [facility] [address] [place] [phone] Giana FowlerMARIA C [address] [place] [phone] 12/25/2024 1:30 PM CDT Office Visit [facility] [place] [facility] [place] [address] [place] [address] Srinivasa Anderson MD [address] [place] [address] 03/04/2025 11:00 AM ARMORED VEHICLE OFFICER Office Visit [facility] [address] [place] [address] [phone] Kodak Samuel MD [address] [place] [phone] 03/11/2025 1:00 PM ARMORED VEHICLE OFFICER Office Visit [facility] [address] [place] [phone] Mariela Stone MD [address] [place] [address] [phone] Bennett NP NO ADDRESS ON FILE documented as of this encounter Visit Diagnoses Not on filedocumented in this encounter Care Teams Drapery And Upholstery Measurer Relationship Specialty Start Date End Date Srinivasa Anderson MD [address] [place] [address] PCP - General Family Practice 05/18/24 documented as of this encounter
--- OUTSIDE RECORDS SUMMARY | 2024-11-02 09:15 | XMS_ITS | Encounter Summary ---
Author Organization [facility] Address [address] [place] [address] Care Team Providers Care Product Specialist Name Role Phone Srinivasa Anderson MD Primary Care Provider [phone] Encounter Details Date Type Department Care Team (Latest Contact Info) Description 09/26/2006 Outpatient Historical [facility] [place] [place] [address] Srinivasa Anderson MD [address] [place] [address] Other Testicular Hypofunction (Primary Dx) Social History Tobacco Use Types Packs/Day Years Used Date Smoking Tobacco: Never Assessed Sex and Gender Information Value Date Recorded Sex Assigned at Not on file 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
--- OUTSIDE RECORDS SUMMARY | 2024-11-02 09:15 | XMS_ITS | Encounter Summary ---
Author Organization [facility] Address [address] [place] [address] Care Team Providers Care Corn Miller Name Role Phone Srinivasa Anderson MD Primary Care Provider [phone] Encounter Details Date Type Department Care Team (Latest Contact Info) Description 01/16/2007 Outpatient Historical [facility] [place] [place] [address] Srinivasa Anderson MD [address] [place] [address] Other Abnormal Blood Chemistry (Primary Dx); Iatrogenic Pulmonary Embolism and Infarction (CMS/HCC); Other and Unspecified Hyperlipidemia; Other Testicular Hypofunction Social History Tobacco Use Types Packs/Day Years Used Date Smoking Tobacco: Never Assessed Sex and Gender Information Value Date Recorded Sex Assigned at Not on file 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 Gender Identity Not on file Sexual Orientation Not on file documented as of this encounter Plan of Treatment Not on file documented as of this encounter Visit Diagnoses Diagnosis Other abnormal blood chemistry- Primary Iatrogenic pulmonary embolism and infarction (CMS/HCC) Iatrogenic pulmonary embolism and infarction Other and unspecified hyperlipidemia Other testicular hypofunction documented in this encounter Care Teams Corn Miller Relationship Specialty Start Date End Date Srinivasa Anderson MD [address] [place] [phone] PCP - General 07/18/04 documented as of this encounter
--- OUTSIDE RECORDS SUMMARY | 2024-11-02 09:15 | XMS_ITS | Encounter Summary ---
Author Organization [facility] Address [address] [facility] [place] [address] Care Team Providers Care Oyster Farmer Name Role Phone Srinivasa Anderson MD Primary Care Provider [phone] Encounter Details Date Type Department Care Team (Latest Contact Info) Description 10/24/2006 Outpatient Historical [facility] [place] [place] [address] Srinivasa Anderson MD [address] [place] [address] Other Testicular Hypofunction (Primary Dx) Social History Tobacco Use Types Packs/Day Years Used Date Smoking Tobacco: Never Assessed Sex and Gender Information Value Date Recorded Sex Assigned at Not on file 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
--- OUTSIDE RECORDS SUMMARY | 2024-11-02 09:15 | XMS_ITS | Encounter Summary ---
Author Organization [facility] Address [address] [place] [address] Care Team Providers Care Supervisor [place] Name Role Phone Srinivasa Anderson MD Primary Care Provider [phone] Encounter Details Date Type Department Care Team (Latest Contact Info) Description 11/21/2006 Outpatient Historical [facility] [place] [place] [address] Srinivasa Anderson MD [address] [place] [address] Other Testicular Hypofunction (Primary Dx) Social History Tobacco Use Types Packs/Day Years Used Date Smoking Tobacco: Never Assessed Sex and Gender Information Value Date Recorded Sex Assigned at Not on file Legal Sex Male 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
--- OUTSIDE RECORDS SUMMARY | 2024-11-02 09:15 | XMS_ITS | Encounter Summary ---
Author Organization [facility] Address [address] [facility] [address] Care Team Providers Care Manager Retirement Name Role Phone Srinivasa Anderson MD Primary Care Provider Encounter Details Date Type Department Care Team (Latest Contact Info) Description 10/10/2006 Outpatient Historical [facility] D[facility]- [facility] [place] [address] [place] [phone] Zoltan Mahoney MD NO ADDRESS ON FILE Actinic Keratosis (Primary Dx); Other Seborrheic Keratosis; Benign John Scalp/Skin Neck Social History Tobacco Use Types Packs/Day Years Used Date Smoking Tobacco: Never Assessed Sex and Gender Information Value Date Recorded Sex Assigned at Not on file Legal Sex Male 3:08 AM CONTACT CENTER MANAGER Gender Identity Not on file Sexual Orientation Not on file documented as of this encounter Plan of Treatment Not on file documented as of this encounter Visit Diagnoses Diagnosis Actinic keratosis- Primary Other seborrheic keratosis Benign john scalp/skin neck Benign neoplasm of scalp and skin of neck documented in this encounter Care Teams Manager Retirement Relationship Specialty Start Date End Date Srinivasa Anderson MD [address] [place] [phone] PCP - General 07/18/04 documented as of this encounter
--- OUTSIDE RECORDS SUMMARY | 2024-11-02 09:15 | XMS_ITS | Encounter Summary ---
Author Organization [facility] Address [address] [place] [address] Care Team Providers Care Lead Instructor/Flight Attendant Name Role Phone Srinivasa Anderson MD Primary Care Provider [phone] Encounter Details Date Type Department Care Team (Latest Contact Info) Description 12/19/2006 Outpatient Historical [facility] [place] [place] [address] Srinivasa Anderson MD [address] [place] [address] Other Testicular Hypofunction (Primary Dx) Social History Tobacco Use Types Packs/Day Years Used Date Smoking Tobacco: Never Assessed Sex and Gender Information Value Date Recorded Sex Assigned at Not on file 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
--- NOTE | 2024-11-02 09:16 | XR_ITS ---
WS: [id number] XR knee LT 1-2V [id number] REASON FOR EXAM: PAIN, FALL FINDINGS: Possible small joint effusion. No acute fracture identified. Tibial plateaus and patella are intact. 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 Extensive arterial vascular calcifications of the SFA, popliteal, and distal arterial branches. XR/XR knee LT 1-2V [id number] IMPRESSION: No acute abnormality.
--- OUTSIDE RECORDS SUMMARY | 2024-11-02 09:16 | XMS_ITS | Encounter Summary ---
Author Organization [facility] Address [address] [place] [address] Care Team Providers Care Trapeze Artist Name Role Phone Srinivasa Anderson MD Primary Care Provider [phone] Encounter Details Date Type Department Care Team (Latest Contact Info) Description 03/20/2007 Outpatient Historical [facility] [place] [place] [address] Srinivasa Anderson MD [address] [place] [address] Other Testicular Hypofunction (Primary Dx) Social History Tobacco Use Types Packs/Day Years Used Date Smoking Tobacco: Never Assessed Sex and Gender Information Value Date Recorded Sex Assigned at Not on file Legal Sex Male 3:08 AM TABLE HAND Gender Identity Not on file Sexual Orientation Not on file documented as of this encounter Plan of Treatment Not on file documented as of this encounter Visit Diagnoses Diagnosis Other testicular hypofunction- Primary documented in this encounter Care Teams Trapeze Artist Relationship Specialty Start Date End Date Srinivasa Anderson MD [address] [place] [address] PCP - General 07/18/04 documented as of this encounter
--- OUTSIDE RECORDS SUMMARY | 2024-11-02 09:16 | XMS_ITS | Encounter Summary ---
Author Organization [facility] Address [address] [facility] [address] Care Team Providers Care Restaurant Cook Name Role Phone Srinivasa Anderson MD Primary Care Provider [phone] Encounter Details Date Type Department Care Team (Latest Contact Info) Description 07/25/2006 Outpatient Historical [facility] [place] [place] [address] Srinivasa Anderson MD [address] [place] [address] Other Abnormal Blood Chemistry (Primary Dx); Osteoarth NOS-Unspec; 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 Social History Tobacco Use Types Packs/Day Years Used Date Smoking Tobacco: Never Assessed Sex and Gender Information Value Date Recorded Sex Assigned at Not on file Legal Sex Male 3:08 AM CAPACITY PLANNING ENGINEER Gender Identity Not on file Sexual Orientation Not on file documented as of this encounter Plan of Treatment Not on file documented as of this encounter Visit Diagnoses Diagnosis Other abnormal blood chemistry- Primary Osteoarthrosis, unspecified whether generalized or localized, unspecified site Unspecified disorder of male genital organs documented in this encounter Care Teams Restaurant Cook Relationship Specialty Start Date End Date Srinivasa Anderson MD [address] [place] [address] PCP - General 07/18/04 documented as of this encounter
--- OUTSIDE RECORDS SUMMARY | 2024-11-02 09:16 | XMS_ITS | Encounter Summary ---
Author Organization [facility] Address [address] [place] [address] Care Team Providers Care Cinder Man Name Role Phone Srinivasa Anderson MD Primary Care Provider [phone] Encounter Details Date Type Department Care Team (Latest Contact Info) Description 07/25/2005 Outpatient Historical [facility] Dermatology- [facility] [address] [place] [address] Zoltan Mahoney MD NO ADDRESS ON FILE Malig John Skin Arm (Primary Dx); Other Seborrheic Keratosis Social History Tobacco Use Types Packs/Day Years Used Date Smoking Tobacco: Never Assessed Sex and Gender Information Value Date Recorded Sex Assigned at Not on file Legal Sex Male 3:08 AM HAND FORMER Gender Identity Not on file Sexual Orientation Not on file documented as of this encounter Plan of Treatment Not on file documented as of this encounter Visit Diagnoses Diagnosis Malig john skin arm- Primary 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
--- OUTSIDE RECORDS SUMMARY | 2024-11-02 09:16 | XMS_ITS | Encounter Summary ---
Author Organization [facility] Address [address] [place] [address] Care Team Providers Care Documentation Consultant Name Role Phone Srinivasa Anderson MD Primary Care Provider [phone] Encounter Details Date Type Department Care Team (Late st Contact Info) Description 05/15/2007 Outpatient [facility] [place] [place] [address] Srinivasa Anderson MD [address] [place] [address] Social History Tobacco Use Types Packs/Day Years Used Date Smoking Tobacco: Never Assessed Sex and Gender Information Value Date Recorded Sex Assigned at Not on file 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
--- OUTSIDE RECORDS SUMMARY | 2024-11-02 09:16 | XMS_ITS | Encounter Summary ---
Author Organization [facility] Address [address] [place] [address] Care Team Providers Care Marketing Campaign Analyst Name Role Phone Srinivasa Anderson MD Primary Care Provider [phone] Encounter Details Date Type Department Care Team (Latest Contact Info) Description 04/11/2006 Outpatient Historical [facility] Dermatology- [facility] [address] [place] [address] Zoltan Mahoney MD NO ADDRESS ON FILE Malig John Skin Ear (Primary Dx); Actinic Keratosis; Other Seborrheic Keratosis Social History Tobacco Use Types Packs/Day Years Used Date Smoking Tobacco: Never Assessed Sex and Gender Information Value Date Recorded Sex Assigned at Not on file 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
--- OUTSIDE RECORDS SUMMARY | 2024-11-02 09:16 | XMS_ITS | Encounter Summary ---
Author Organization [facility] Address [address] [place] [address] Care Team Providers Care Caramel Candy Maker Helper Name Role Phone Srinivasa Anderson MD Primary Care Provider [phone] Encounter Details Date Type Department Care Team (Latest Contact Info) Description 09/27/2005 Outpatient Historical [facility] Dermatology- [facility] [address] [place] [address] Zoltan Mahoney MD NO ADDRESS ON FILE Malig John Skin Arm (Primary Dx); Actinic Keratosis; Other Seborrheic Keratosis Social History Tobacco Use Types Packs/Day Years Used Date Smoking Tobacco: Never Assessed Sex and Gender Information Value Date Recorded Sex Assigned at Not on file 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
--- OUTSIDE RECORDS SUMMARY | 2024-11-02 09:16 | XMS_ITS | Encounter Summary ---
Author Organization [facility] Address [address] [place] [address] Care Team Providers Care Supervisor Elementary Education Name Role Phone Srinivasa Anderson MD Primary Care Provider [phone] Encounter Details Date Type Department Care Team (Latest Contact Info) Description 11/22/2005 Outpatient Historical [facility] [place] [place] [address] Nati Espinoza MD [address] [place] [address] Other Testicular Hypofunction (Primary Dx) Social History Tobacco Use Types Packs/Day Years Used Date Smoking Tobacco: Never Assessed Sex and Gender Information Value Date Recorded Sex Assigned at Not on file 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
--- OUTSIDE RECORDS SUMMARY | 2024-11-02 09:16 | XMS_ITS | Encounter Summary ---
Author Organization [facility] Address [address] [place] [address] Care Team Providers Care Talent Acquisition Lead Name Role Phone Srinivasa Anderson MD Primary Care Provider [phone] Encounter Details Date Type Department Care Team (Latest Contact Info) Description 03/10/2007 Outpatient Historical [facility] [address] 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
--- OUTSIDE RECORDS SUMMARY | 2024-11-02 09:16 | XMS_ITS | Encounter Summary ---
Author Organization [facility] Address [address] [facility] [place] [address] Care Team Providers Care Observation Assistant Name Role Phone Srinivasa Anderson MD Primary Care Provider [phone] Encounter Details Date Type Department Care Team (Latest Contact Info) Description 09/04/2005 Outpatient Historical [facility] [place] [place] [address] Srinivasa Anderson MD [address] [place] [address] Unspecified Essential Hypertension (Primary Dx); Other and Unspecified Hyperlipidemia; Abdominal Pain, Unspecified Site; Depressive Disorder, not Elsewhere Classified Social History Tobacco Use Types Packs/Day Years Used Date Smoking Tobacco: Never Assessed Sex and Gender Information Value Date Recorded Sex Assigned at Not on file 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
--- OUTSIDE RECORDS SUMMARY | 2024-11-02 09:16 | XMS_ITS ---
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 There was mild stenosis. Mean gradient: 11mm Hg (S). Peak gradient: 22mm Hg (S). 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 Past Treatment and Therapy Plans No past plan information found. Lifetime Dose Tracking * Chemical Lifetime Dose Automatic Entry Manual Entr y Effective Dose 1.8 mSv 1.8 mSv 0 mSv Total DLP 756 DLP 756 DLP 0 DLP CTDIvol Max 93.7 mGy 93.7 mGy 0 mGy CTDIvol Min 27.8 mGy 27.8 mGy 0 mGy Resolved Problems Problem Noted Date Diagnosed Date Resolved Date Nummular eczema 08/18/2009 06/30/2010 Intradermal nevus 11/30/2008 06/30/2010 Actinic keratosis 10/16/2007 06/30/2010 Inflamed seborrheic keratosis 10/16/2007 06/30/2010 Other seborrheic keratosis 10/16/2007 0 06/30/2010 Anxiety state, unspecified 0 04/30/2018 Other abnormal blood chemistry 12/23/2013
--- OUTSIDE RECORDS SUMMARY | 2024-11-02 09:16 | XMS_ITS | Encounter Summary ---
Author Organization [facility] Address [address] [place] [address] Care Team Providers Care Manager Mobility Name Role Phone Srinivasa Anderson MD Primary Care Provider [phone] Encounter Details Date Type Department Care Team (Latest Contact Info) Description 04/11/2006 Outpatient Historical [facility] [address] 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
--- OUTSIDE RECORDS SUMMARY | 2024-11-02 09:16 | XMS_ITS | Encounter Summary ---
Author Organization [facility] Address [address] [place] [address] Care Team Providers Care Medical Office Administrator Name Role Phone Srinivasa Anderson MD Primary Care Provider [phone] Encounter Details Date Type Department Care Team (Latest Contact Info) Description 04/25/2006 Outpatient Historical [facility] [place] [place] [address] Srinivasa Anderson MD [address] [place] [address] Acute Sinusitis, Unspecified (Primary Dx) Social History Tobacco Use Types Packs/Day Years Used Date Smoking Tobacco: Never Assessed Sex and Gender Information Value Date Recorded Sex Assigned at Not on file 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
--- OUTSIDE RECORDS SUMMARY | 2024-11-02 09:16 | XMS_ITS | Clinical Summary ---
Author Organization [facility] Address [address] [place] [address] Care Team Providers Care Vegetable Washing Machine Operator Name Role Phone Srinivasa Anderson MD Primary Care Provider [phone] Allergies No known active allergies Medications SACCHAROMYCES BOULARDII (PROBIOTIC, S.BOULARDII, ORAL) Take by mouth. Activ e TRUEPLUS LANCETS 28 gauge TESTING GLUCOSE TWICE DAILY 100 Each 12 8 Active acetaminophen (TYLENOL) 500 mg tablet Take 500 mg by mouth every 6 hours as needed. Active clobetasoL (TEMOVATE) 0.05 % Cream 0 Active Syringe with Needle, Disp, (BD Luer-Adi Syringe) 3 mL 25 x 5/8 Syringe Inject 1ml every 30 days 50 Each 0 Active predniSONE (DELTASONE) 5 mg tablet Take 0.5-1 Tablets (2.5-5 mg) by mouth daily. 90 Tablet 0 Active amLODIPine (NORVASC) 5 mg tablet Take 1 tablet by mouth once daily 90 Tablet 3 1 Active cyanocobalamin (VITAMIN B-12) 1,000 mcg/mL Solution Inject 1 mL (1,000 mcg) by intramuscular injection every 30 days. INJECT 1 ML BY IM EVERY 30 DAYS 10 mL 1 1 Active warfarin (COUMADIN) 5 mg tablet Take 1 Tablet (5 mg) by mouth daily. Except 7.5 mg on Sundays 145 Tablet 5 1 Active metoprolol succinate (TOPROL XL) 25 mg Extended Release 24 hour tablet Take 1 Tablet (25 mg) by mouth daily. 90 Tablet 3 1 Active lisinopriL (PRINIVIL) 40 mg tablet Take 1 Tablet (40 mg) by mouth daily. 90 Tablet 3 1 Active FLUoxetine (PROzac) 20 mg capsule Take 2 Capsules (40 mg) by mouth daily. 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 (CMS/HCC),Rash 60 mg IM ONE TIME ONLY 12/09/2019 Active Active Problems Problem Noted Date Diagnosed Date [...] Other testicular hypofunction Hyperlipidemia Essential hypertension, benign Resolved Problems Problem Noted Date Diagnosed Date Resolved Date Nummular eczema 08/18/2009 06/30/2010 Intradermal nevus 11/30/2008 06/30/2010 Actinic keratosis 10/16/2007 06/30/2010 Inflamed seborrheic keratosis 10/16/2007 06/30/2010 Other seborrheic keratosis 10/16/2007 0 06/30/2010 Anxiety state, unspecified 0 04/30/2018 Other abnormal blood chemistry 12/23/2013 Immunizations Immunization Administration Dates Next Due (ADACEL/BOOSTRIX)(10 YR UP) TDAP VACCINE, 0.5ML, IM 05/25/2008 (PNEUMOVAX 23)(50 YRS UP) PN EUMOCOCCAL POLYSACCHARIDE (PPV23) 0.5 ML, IM 06/23/2009,11/06/2002 (PREVNAR 13)(6 WKS UP) PNEUM OCOCCAL CONJUGATE (PCV13) 0.5 ML, IM 01/12/2020,06/03/2014 Influenza Seasonal Unspecifi ed Formulation IM 02/20/2007,03/26/2006,02/14/2005,02/07,02/11/2003,02/24/2001 Influenza Vaccine High Dose 65+ Yrs IM 0 01/12/2020,01/21/2019,01/24/2018,12/31,01/26/2016,02/01/2015,01/28/2014 ,01/16/2011 Influenza Vaccine Split 3+ Yrs IM 02/24/2009, Influenza Vaccine Split 3+ Yrs PF IM 01/22/2013, 01/31/2012,01/18/2010 Zoster Vaccine Live SQ Patie nt Supplied 12/20/2011 Family History Medical History Relation Name Comments Cancer Father Diabetes Mother Heart Disease Mother Macular Degen Mother Breast Cancer Neg Hx Relation Name Status Comments Father Mother Social History Tobacco Use Types Packs/Day Years Used Date Smoking Tobacco: Former Cigarettes 0.5 30 0 04/22/1962 - 04/22/1992 Smokeless Tobacco: Former Tobacco Cessation:Counseling Given: No Alcohol Use Standard Drinks/Week Comments Yes 0 (1 standard drink = 0.6 oz pur e alcohol) Sex and Gender Information Value Date Recorded Sex Assigned at Not on file 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 Gender Identity Not on file Sexual Orientation Not on file Occupation Industry Job Start Date Job End Date Not on file Not on file Not on file Not on file Last Filed Vital Signs Vital Sign Reading Time Taken Comments Blood Pressure 118/84 06/23/2020 11:43 AM [employer] HAZMAT TANKER DRIVER Pulse 60 06/23/2020 11:43 AM [employer] HA[employer]MAT TANKER DRIVER Temperature 36.4 C (97.6 F) 02/19/2020 3:25 PM CDT Respiratory Rate 16 02/19/2020 3:25 PM CDT Oxygen Saturation 99% 06/23/2020 11:43 AM [employer] HAZMAT TANKER DRIVER Inhaled Oxygen Concentration - - Weight 78.5 kg (173 lb) 06/23/2020 11:43 AM [employer] HAZMAT TANKER DRIVER Height 191.8 cm (6' 3.5 ) 06/23/2020 11:43 AM CS T Body Mass Index 21.34 06/23/2020 11:43 AM [employer] HAZMAT TANKER DRIVER Plan of Treatment Health Maintenance Due Date Last Done Comments ZOSTER VACCINE (1 of 2) 02/14/2012 12/20/2011 RSV VACCINE (60+ or ) (1 - 1-dose 75+ series) 2012 DIABETES ANNUAL FOOT EXAM 03/19/20182016, 01/26/2016, 08/01/2010, Additional history exists DTAP/TDAP/TD VACCINES (2 - T d or Tdap) 05/25/2018 05/25/2008 Traditional Medicare (O) A nnual Wellness Visit 10/15/2020 10/15/2019, 10/09/2018, 10/03/2017, Additional history exists DIABETES MICROALBUMIN ANNUAL SCREEN 11/08/2020 11/09/2019, 12/19/2018, 08/20/2018, Additional history exists LDL CHOLESTEROL ANNUAL 11/08/2020 0, 10/09/2018, 03/19/2017, Additional history exists DIABETES HBA1C Q 6 MONTHS 05/31/20232022, 11/09/2019, 11/09/2019, Additional history exists DIABETES ANNUAL RETINAL EXAM 07/17/2023, 05/01/2021, 09/03/2019, Additional history exists INFLUENZA VACCINE (#1) 2024 0, 01/21/2019, 01/24/2018, Additional history exists COLORECTAL SCREENING 12/01/2027 11/30/2022, 08/12/2009, 08/12/2009, Additional history exists PNEUMOCOCCAL VACCINE 50+ YEARS Completed 0 01/12/2020, 06/03/2014, 06/23/2009, Additional history exists Medical Devices Implanted Type Area Animal Husbandry Worker Device Identifier Shelf Expiration Date Model / Serial / Lot Lens Io Tecnis 1pc 22.0 [id number] - [id number] Implanted:Qty: 1 on 08/23/2016 by Dominic Peralta MD at [facility] Left: Eye [employer] 10/20/2019 [id number] / [id number] / Lens Io Tecnis 1pc 22.5 [id number] - [id number] Implanted:Qty: 1 on 09/06/2016 by Dominic Peralta MD at [facility] Right: Eye [employer] 12/19/2019 [id number] / [id number] / Procedures Procedure Name Priority Date/Time Associated Diagnosis Comments MICROALBUMIN/CREATI NINE RATIO, RANDOM UR Routine 11/09/2019 9:43 AM CDT Diabetic polyneuropathy associated with type 2 diabetes mellitus ([facility]) LIPID PANEL Routine 11/09/2019 9:43 AM CDT Diabetic polyneuropathy associated with type 2 diabetes mellitus ([facility]/HCC) HEMOGLOBIN A1C Routine 11/09/2019 9:43 AM CDT Diabetic polyneuropathy associated with type 2 diabetes mellitus ([facility]/HCC) HM DIABETES EYE EXAM Routine 11/17/2018 ENDOSCOPY, COLON, SCREENING Routine 08/12/2009 10:57 AM CDT Special Screening for Malignant Neoplasms, Colon from Last 3 Months or Most Recently Relevant to Health Maintenance Results * (ABNORMAL) MICROALBUMIN/CREATININE RATIO, RANDOM UR (11/09/2019 9:43 AM CDT) MICROALBUMIN, URINE 5.3 No Reference Range mg/dL 11/09/2019 9:33 PM CDT [facility] CREATININE, URINE 139.7 40.0 - 278.0 mg/dL 11/09/2019 9:33 PM CDT [facility] Comment:Reference Range vari es with fluid intake and diet. MICROALBUMIN/ CREAT RATIO, UR 37.9(H) <17.0 mg/g 11/09/2019 9:33 PM CDT [facility] Urine URINE SPECIMEN OBTAINED BY CLEAN CATCH PROCEDURE / Unknown Collection / Unknown 11/09/2019 9:43 AM CDT 11/09/2019 8:[address] [facility] - 11/09/2019 9:33 PM CDT Condition Microalbumin/Creat ratio Normal Males <17 Normal Females <25 Microalbuminuria Males 17-299 Microalbuminuria Females 25-299 Overt proteinuria >=300 us Srinivasa Anderson MD URINE ORDERABLES Final Result [facility] CLIA# [id number] [facility] [place] [address] * (ABNORMAL) HEMOGLOBIN A1C (11/09/2019 9:43 AM CDT) HEMOGLOBIN A1C 6.2(H) See Comment % 11/09/2019 9:37 PM CDT [facility] EST. AVG GLUCOSE, A1C 131 mg/dL 11/09/2019 9:37 PM CDT [facility] Blood Venipuncture / Unknown 11/09/2019 9:43 AM CDT 11/09/2019 8:23 PM CDT Narrative [facility] - 11/09/2019 9:37 PM CDT HGB A1C INTERPRETATION NORMAL: <5.7% PRE-DIABETES: 5.7 - 6.4% DIABETES: 6.5% OR GREATER Falsely low A1C measurements can occur when: 1. Anemia and/or hemolytic anemia is present. 2. Hemoglobin variants present. 3. Renal failure. 4. Transfusion of blood product in the last 120 days. We recommend ordering a fructosamine test([id number]) to more accurately assess glycemic status if any of the above conditions are present. us Srinivasa Anderson MD CHEMISTRY ORDERABLES Final Resul t [facility] CLIA# [id number] [address] [place] [address] * (ABNORMAL) LIPID PANEL (11/09/2019 9:43 AM CDT) [facility] CHOLESTEROL 189 <200 mg/dL 11/09/2019 9:10 PM CDT [facility] TRIGLYCERIDE 102 <150 mg/dL 11/09/2019 9:10 PM T [facility] HDL 47 40 - 59 mg/dL 11/09/2019 9:10 PM T [facility] LDL CALCULATED 122(H) <100 mg/dL 11/09/2019 9:10 PM T [facility] NON-HDL CHOLESTEROL 142(H) <130 mg/dL 11/09/2019 9:10 PM T [facility] Blood Venipuncture / Unknown 11/09/2019 9:43 AM CDT 11/09/2019 8:[address] [facility] - 11/09/2019 9:10 PM CDT TOTAL CHOLESTEROL mg/dL Desirable <200 Borderline high 200-239 High >=240 TRIGLYCERIDES mg/dL Normal <150 Borderline high 150-199 High 200-499 Very high >=500 HDL CHOLESTEROL mg/dL Low <40 Normal 40-59 Desirable >=60 NON HDL CHOLESTEROL mg/dL Optimal <130 Near Optimal 130-159 Borderline High 160-189 Very High >=190 CALCULATED LDL mg/dL LDL <70, OPTIMAL if have Atherosclerotic cardiovascular disease (ASCVD) or intermediate or higher (>7.5%) 10 year risk of ASCVD including most adults with diabetes. LDL <100, Optimal in adult patients with low (<7.5%) 10 year ASCVD risk LDL 100-160, Suboptimal LDL >160, High LDL >190, Very high ATPIII Guidelines Reference Ranges for Lipid Panels (NCEP/AMA) . us Srinivasa Anderson MD CHEMISTRY ORDERABLES Final Resul t [facility]# [id number] [address] [place] [address] * DIABETES EYE EXAM (11/17/2018) us Abstract Spg Provider HEALTH MAINTENANCE Final R esult from Last 3 Months or Most Recently Relevant to Health Maintenance Insurance [address] [place] [address] MEDICARE PART A AND B [facility] [address] [place] [address] RX [employer] RX Member Subscriber Plan / Payer (Ef fective 2005-Present) Name:Moiz Hernandez Relation to Subscriber:Self Name:Moiz Hernandez Payer ID:Not on file Group ID:[id number] Type:RX Medicare Part D Address: [place] [place] [address] [facility] DATA Medicare Part B Advance Directives For more information, please contact: [phone] Documents on File Type Date Recorded Patient Research Greenhouse Supervisor Expl anation Advance Directive Living Will 07/23/2012 9:25 AM Advance Directive Living Will (Signed0 08/04/1992 Advance Directive POA 01/03/2012 12:13 PM Advance Directive POA (signed) 08/04/1992 * Full Code (Latest Code Status on File) Date Activated Date Inactivated Comments 09/06/2016 9:22 AM 09/06/2016 12:23 PM * Full Code Date Activated Date Inactivated Comments 08/23/2016 9:48 AM 08/23/2016 1:48 PM * Full Code Date Activated Date Inactivated Comments 08/12/2009 10:57 AM 08/13/2009 2:32 AM Care Teams Vegetable Washing Machine Operator Relationship Specialty Start Date End Date Srinivasa Anderson MD [address] [place] [address] PCP - General 07/18/04
--- OUTSIDE RECORDS SUMMARY | 2024-11-02 09:16 | XMS_ITS | Encounter Summary ---
Author Organization [facility] Address [address] [place] [address] Care Team Providers Care Financial Services Officer Name Role Phone Srinivasa Anderson MD Primary Care Provider [phone] Encounter Details Date Type Department Care Team (Latest Contact Info) Description 02/07/2006 Outpatient Historical [facility] [address] [place] [address] Srinivasa Anderson MD [address] [place] [phone] Other Testicular Hypofunction (Primary Dx) Social History Tobacco Use Types Packs/Day Years Used Date Smoking Tobacco: Never Assessed Sex and Gender Information Value Date Recorded Sex Assigned at Not on file Legal Sex Male 3:08 AM EXTENSION ASSOCIATE Gender Identity Not on file Sexual Orientation Not on file documented as of this encounter Plan of Treatment Not on file documented as of this encounter Visit Diagnoses Diagnosis Other testicular hypofunction- Primary documented in this encounter Care Teams Financial Services Officer Relationship Specialty Start Date End Date Srinivasa Anderson MD [address] [place] [address] PCP - General 07/18/04 documented as of this encounter
--- OUTSIDE RECORDS SUMMARY | 2024-11-02 09:16 | XMS_ITS | Encounter Summary ---
Author Organization [facility] Address [address] [facility] [place] [address] Care Team Providers Care C Web Developer Name Role Phone Srinivasa Anderson MD Primary Care Provider [phone] Encounter Details Date Type Department Care Team (Latest Contact Info) Description 07/25/2005 Outpatient Historical [facility] [address] 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
--- OUTSIDE RECORDS SUMMARY | 2024-11-02 09:16 | XMS_ITS | Encounter Summary ---
Author Organization 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
--- OUTSIDE RECORDS SUMMARY | 2024-11-02 09:16 | XMS_ITS | Encounter Summary ---
Author Organization [facility] Address [address] [place] [address] Care Team Providers Care Upsetter Helper Name Role Phone Srinivasa Anderson MD Primary Care Provider [phone] Encounter Details Date Type Department Care Team (Latest Contact Info) Description 06/19/2006 Outpatient Historical [facility] [address] [place] [address] Srinivasa Anderson MD [address] [place] [address] Other Testicular Hypofunction (Primary Dx) Social History Tobacco Use Types Packs/Day Years Used Date Smoking Tobacco: Never Assessed Sex and Gender Information Value Date Recorded Sex Assigned at Not on file Legal Sex Male 3:08 AM RECONDITIONER Gender Identity Not on file Sexual Orientation Not on file documented as of this encounter Plan of Treatment Not on file documented as of this encounter Visit Diagnoses Diagnosis Other testicular hypofunction- Primary documented in this encounter Care Teams Upsetter Helper Relationship Specialty Start Date End Date Srinivasa Anderson MD [address] [place] [address] PCP - General 07/18/04 documented as of this encounter
--- OUTSIDE RECORDS SUMMARY | 2024-11-02 09:16 | XMS_ITS | Encounter Summary ---
Author Organization [facility] Address [address] [facility] [place] [address] Care Team Providers Care Lvn Lpn Name Role Phone Srinivasa Anderson MD Primary Care Provider [phone] Encounter Details Date Type Department Care Team (Latest Contact Info) Description 01/18/2006 Outpatient Historical [facility] [address] [place] [address] Srinivasa Anderson MD [address] [place] [address] Other Testicular Hypofunction (Primary Dx) Social History Tobacco Use Types Packs/Day Years Used Date Smoking Tobacco: Never Assessed Sex and Gender Information Value Date Recorded Sex Assigned at Not on file Legal Sex Male 3:08 AM SITE SUPERVISOR Gender Identity Not on file Sexual Orientation Not on file documented as of this encounter Plan of Treatment Not on file documented as of this encounter Visit Diagnoses Diagnosis Other testicular hypofunction- Primary documented in this encounter Care Teams Lvn Lpn Relationship Specialty Start Date End Date Srinivasa Anderson MD [address] [place] [address] PCP - General 07/18/04 documented as of this encounter
--- OUTSIDE RECORDS SUMMARY | 2024-11-02 09:16 | XMS_ITS | Encounter Summary ---
Author Organization [facility] Address [address] [facility] [place] [address] Care Team Providers Care Child Care Worker Name Role Phone Srinivasa Anderson MD Primary Care Provider [phone] Encounter Details Date Type Department Care Team (Late st Contact Info) Description 04/02/2006 Outpatient Historical [facility] Social History Tobacco Use Types Packs/Day Years Used Date Smoking Tobacco: Never Assessed Sex and Gender Information Value Date Recorded Sex Assigned at Not on file Legal Sex Male 3:08 AM TEST DECK SUPERVISOR Gender Identity Not on file Sexual Orientation Not on file documented as of this encounter Plan of Treatment Not on file documented as of this encounter Visit Diagnoses Not on filedocumented in this encounter Care Teams Child Care Worker Relationship Specialty Start Date End Date Srinivasa Anderson MD [address] [place] [phone] PCP - General 07/18/04 documented as of this encounter
--- OUTSIDE RECORDS SUMMARY | 2024-11-02 09:16 | XMS_ITS | Encounter Summary ---
Author Organization [facility] Address [address] [place] [address] Care Team Providers Care Flour Broker Name Role Phone Srinivasa Anderson MD Primary Care Provider [phone] Encounter Details Date Type Department Care Team (Late st Contact Info) Description 04/17/2007 Outpatient Historical [facility] [place] [phone] Srinivasa Anderson MD [address] [place] [address] Social History Tobacco Use Types Packs/Day Years Used Date Smoking Tobacco: Never Assessed Sex and Gender Information Value Date Recorded Sex Assigned at Not on file Legal Sex Male 3:08 AM AUTHORS MOTIVATIONAL Gender Identity Not on file Sexual Orientation Not on file documented as of this encounter Plan of Treatment Not on file documented as of this encounter Visit Diagnoses Not on filedocumented in this encounter Care Teams Flour Broker Relationship Specialty Start Date End Date Srinivasa Anderson MD [address] [place] [phone] PCP - General 07/18/04 documented as of this encounter
--- OUTSIDE RECORDS SUMMARY | 2024-11-02 09:16 | XMS_ITS | Encounter Summary ---
Author Organization [facility] Address [address] [place] [address] Care Team Providers Care Police Lieutenant Name Role Phone Srinivasa Anderson MD Primary Care Provider [phone] Reason for Referral * Outpatient Services (Routine) - Closed Specialty Diagnoses / Procedures Referred By Contac t Referred To Contact Diagnoses Breast swelling Procedures MAMMO DIGITAL DIAG BILAT Srinivasa Anderson MD [address] [place] [address] Phone: tel: fax: Referral ID Status Reason Start Date Expiration Date Visits Re quested Visits Authorized [id number] Closed 04/08/2012 04/08/2013 1 1 ING MACHINE SET UP MECHANIC Encounter Details Date Type Department Care Team (Late st Contact Info) Description 04/08/2012 Ancillary Orders [facility] [place] [place] [address] Srinivasa Anderson MD [address] [place] [address] Breast swelling Social History Tobacco Use Types Packs/Day Years Used Date Smoking Tobacco: Former Cigarettes 0.5 30 0 04/22/1962 - 04/22/1992 Smokeless Tobacco: Never Alcohol Use Standard Drinks/Week Comments No 0 (1 standard drink = 0.6 oz pur e alcohol) Sex and Gender Information Value Date Recorded Sex Assigned at Not on file Legal Sex Male 3:08 AM FILLING MACHINE SET UP MECHANIC Gender Identity Not on file Sexual Orientation Not on file Occupation Industry Job Start Date Job End Date Not on file Not on file Not on file Not on file documented as of this encounter Plan of Treatment Not on file documented as of this encounter Results * MAMMO DIGITAL DIAG BILAT (04/08/2012 11:03 AM FILLING MACHINE SET UP MECHANIC) Anatomical Region Laterality Modality Breast Bilateral Mammography 04/08/2012 10:0 1 AM FILLING MACHINE SET UP MECHANIC Impressions 04/08/2012 8:55 PM FILLING MACHINE SET UP MECHANIC IMPRESSION: Bilateral diagnostic exam and directed left breast ultrasound was performed today. The mammogram is unremarkable as well as the directed left breast ultrasound. Therefore clinical correlation is recommended regarding the reported symptoms. Patient received the result and recommendation letter. Spencer 1140 AM - uploaded from [employer] - Narrative 04/08/2012 8:55 PM FILLING MACHINE SET UP MECHANIC REASON FOR EXAM: Patient is reporting to the [facility] because of left pain and swelling approximately at the 2 to 3 o'clock location. I did review the recent clinical breast exam performed 04/04/2012. IMAGING PERFORMED: Standard bilateral four view mammogram plus exaggerated left lateral CC view. COMPARISON(S): There are no prior films for comparison. TISSUE COMPOSITION: Fatty. FAMILY HX.-BREAST Ca: Negative. MAMMOGRAPHIC FINDINGS: RIGHT BREAST: There is a minimal amount of gynecomastia in the subareolar region on the right. No suspicious findings are identified. LEFT BREAST: The left breast is predominantly fatty replaced. There are no suspicious masses or calcifications identified. This digital mammogram was also analyzed by the Computer Aided Detection System (CAD), Alere ImageChecker, Version 8.3. LEFT BREAST ULTRASOUND: Sonographic evaluation was carried out in the upper outer quadrant and there were no cystic or solid masses identified. PHYSICAL EXAM: On physical exam, no suspicious palpable lumps were noted. Procedure Note Gwen Ortega MD - 04/08/2012 REASON FOR EXAM: Patient is reporting to the Breast Center because of left pain and swelling approximately at the 2 to 3 o'clock location. I did review the recent clinical breast exam performed 04/04/2012. IMAGING PERFORMED: Standard bilateral four view mammogram plus exaggerated left lateral CC view. COMPARISON(S): There are no prior films for comparison. TISSUE COMPOSITION: Fatty. FAMILY HX.-BREAST Ca: Negative. MAMMOGRAPHIC FINDINGS: RIGHT BREAST: There is a minimal amount of gynecomastia in the subareolar region on the right. No suspicious findings are identified. LEFT BREAST: The left breast is predominantly fatty replaced. There are no suspicious masses or calcifications identified. This digital mammogram was also analyzed by the Computer Aided Detection System (CAD), Alere ImageiCrumzcker, Version 8.3. LEFT BREAST ULTRASOUND: Sonographic evaluation was carried out in the upper outer quadrant and there were no cystic or solid masses identified. PHYSICAL EXAM: On physical exam, no suspicious palpable lumps were noted. IMPRESSION IMPRESSION: Bilateral diagnostic exam and directed left breast ultrasound was performed today. The mammogram is unremarkable as well as the directed left breast ultrasound. Therefore clinical correlation is recommended regarding the reported symptoms. Patient received the result and recommendation letter. DB/allie 1140 AM - uploaded from [employer] - us Srinivasa Anderson MD MAMMO ORDERABLES Final Result documented in this encounter Visit Diagnoses Diagnosis Breast swelling Lump or mass in breast Breast swelling Lump or mass in breast documented in this encounter Care Teams Police Lieutenant Relationship Specialty Start Date End Date Srinivasa Andreson MD [address] [address] PCP - General 07/18/04 documented as of this encounter
--- OUTSIDE RECORDS SUMMARY | 2024-11-02 09:16 | XMS_ITS | Encounter Summary ---
Author Organization [facility] Address [address] [place] [address] Care Team Providers Care Inkjet Operator Name Role Phone Srinivasa Anderson MD Primary Care Provider [phone] Encounter Details Date Type Department Care Team (Latest Contact Info) Description 04/02/2006 Outpatient Historical [facility] [address] 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, Uncontrolled (Primary Dx) Social History Tobacco Use Types Packs/Day Years Used Date Smoking Tobacco: Never Assessed Sex and Gender Information Value Date Recorded Sex Assigned at Not on file Legal Sex Male 3:08 AM PRODUCT SAFETY TECHNICAL ASSISTANT Gender Identity Not on file Sexual Orientation Not on file documented as of this encounter Plan of Treatment Not on file documented as of this encounter Visit Diagnoses Diagnosis Type I (juvenile type) diabetes mellitus without mention of complication, uncontrolled- Primary documented in this encounter Care Teams Inkjet Operator Relationship Specialty Start Date End Date Srinivasa Anderson MD [address] [facility] [address] [place] [address] PCP - General 07/18/04 documented as of this encounter
--- OUTSIDE RECORDS SUMMARY | 2024-11-02 09:16 | XMS_ITS | Encounter Summary ---
Author Organization [facility] Address [address] [place] [address] Care Team Providers Care Horticultural Agent Name Role Phone Srinivasa Anderson MD Primary Care Provider [phone] Encounter Details Date Type Department Care Team (Latest Contact Info) Description 04/19/2006 Outpatient Historical [facility] [place] [place] [address] Srinivasa Anderson MD [address] [place] [address] Other Testicular Hypofunction (Primary Dx) Social History Tobacco Use Types Packs/Day Years Used Date Smoking Tobacco: Never Assessed Sex and Gender Information Value Date Recorded Sex Assigned at Not on file Legal Sex Male 3:08 AM PAINTINGS CONSERVATOR Gender Identity Not on file Sexual Orientation Not on file documented as of this encounter Plan of Treatment Not on file documented as of this encounter Visit Diagnoses Diagnosis Other testicular hypofunction- Primary documented in this encounter Care Teams Horticultural Agent Relationship Specialty Start Date End Date Srinivasa Anderson MD [address] [place] [address] PCP - General 07/18/04 documented as of this encounter
--- OUTSIDE RECORDS SUMMARY | 2024-11-02 09:16 | XMS_ITS | Encounter Summary ---
Author Organization [facility] Address [address] [address] Care Team Providers Care Chemist Water Purification Name Role Phone Srinivasa Anderson MD Primary Care Provider [phone] Encounter Details Date Type Department Care Team (Latest Contact Info) Description 08/16/2005 Outpatient Historical [facility] [place] [place] [address] Srinivasa Anderson MD [address] [place] [address] Other Testicular Hypofunction (Primary Dx) Social History Tobacco Use Types Packs/Day Years Used Date Smoking Tobacco: Never Assessed Sex and Gender Information Value Date Recorded Sex Assigned at Not on file 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
--- OUTSIDE RECORDS SUMMARY | 2024-11-02 09:16 | XMS_ITS | Encounter Summary ---
Author Organization [facility] Address [address] [facility] [place] [address] Care Team Providers Care Cigar Making Machine Supervisor Name Role Phone Srinivasa Anderson MD Primary Care Provider [phone] Encounter Details Date Type Department Care Team (Latest Contact Info) Description 2006 Outpatient Historical [facility] [place] [place] [address] Srinivasa Anderson MD [address] [place] [address] Other Testicular Hypofunction (Primary Dx) Social History Tobacco Use Types Packs/Day Years Used Date Smoking Tobacco: Never Assessed Sex and Gender Information Value Date Recorded Sex Assigned at Not on file Legal Sex Male 3:08 AM SCRAP METAL BURNER Gender Identity Not on file Sexual Orientation Not on file documented as of this encounter Plan of Treatment Not on file documented as of this encounter Visit Diagnoses Diagnosis Other testicular hypofunction- Primary documented in this encounter Care Teams Cigar Making Machine Supervisor Relationship Specialty Start Date End Date Srinivasa Anderson MD [address] [place] [address] PCP - General 07/18/04 documented as of this encounter
--- OUTSIDE RECORDS SUMMARY | 2024-11-02 09:16 | XMS_ITS | Encounter Summary ---
Author Organization [facility] Address [address] [place] [address] Care Team Providers Care Adult Live In Caregiver Name Role Phone Srinivasa Anderson MD Primary Care Provider [phone] Encounter Details Date Type Department Care Team (Latest Contact Info) Description 10/10/2005 Outpatient Historical [facility] [address] [place] [address] [place] [id number] Zoltan Mahoney MD NO ADDRESS ON FILE Actinic Keratosis (Primary Dx) Social History Tobacco Use Types Packs/Day Years Used Date Smoking Tobacco: Never Assessed Sex and Gender Information Value Date Recorded Sex Assigned at Not on file Legal Sex Male 3:08 AM PATHOLOGIST Gender Identity Not on file Sexual Orientation Not on file documented as of this encounter Plan of Treatment Not on file documented as of this encounter Visit Diagnoses Diagnosis Actinic keratosis- Primary documented in this encounter Care Teams Adult Live In Caregiver Relationship Specialty Start Date End Date Srinivasa Anderson MD [address] [address] PCP - General 07/18/04 documented as of this encounter
--- OUTSIDE RECORDS SUMMARY | 2024-11-02 09:16 | XMS_ITS | Encounter Summary ---
Author Organization [facility] Address [address] [address] Care Team Providers Care Hat Copyist Name Role Phone Srinivasa Anderson MD Primary Care Provider [phone] Encounter Details Date Type Department Care Team (Latest Contact Info) Description 08/15/2006 Outpatient Historical [facility] [place] [place] [address] Srinivasa Anderson MD [address] [place] [address] Other Testicular Hypofunction (Primary Dx) Social History Tobacco Use Types Packs/Day Years Used Date Smoking Tobacco: Never Assessed Sex and Gender Information Value Date Recorded Sex Assigned at Not on file Legal Sex Male 3:08 AM SPRING MACHINE OPERATOR Gender Identity Not on file Sexual Orientation Not on file documented as of this encounter Plan of Treatment Not on file documented as of this encounter Visit Diagnoses Diagnosis Other testicular hypofunction- Primary documented in this encounter Care Teams Hat Copyist Relationship Specialty Start Date End Date Srinivasa Anderson MD [address] [place] [address] PCP - General 07/18/04 documented as of this encounter
--- OUTSIDE RECORDS SUMMARY | 2024-11-02 09:16 | XMS_ITS | Encounter Summary ---
Author Organization [facility] Address [address] [facility] [place] [address] Care Team Providers Care Printing Machinist Name Role Phone Srinivasa Anderson MD Primary Care Provider [phone] Encounter Details Date Type Department Care Team (Latest Contact Info) Description 12/21/2005 Outpatient Historical [facility] [place] [place] [address] Srinivasa Anderson MD [address] [place] [address] Other Malaise and Fatigue (Primary Dx); Other Testicular Hypofunction; Depressive Disorder, not Elsewhere Classified Social History Tobacco Use Types Packs/Day Years Used Date Smoking Tobacco: Never Assessed Sex and Gender Information Value Date Recorded Sex Assigned at Not on file Legal Sex Male 3:08 AM HOSPITAL DIRECTOR Gender Identity Not on file Sexual Orientation Not on file documented as of this encounter Plan of Treatment Not on file documented as of this encounter Visit Diagnoses Diagnosis Other malaise and fatigue- Primary Other testicular hypofunction Depressive disorder, not elsewhere classified documented in this encounter Care Teams Printing Machinist Relationship Specialty Start Date End Date Srinivasa Anderson MD [address] [place] [address] PCP - General 07/18/04 documented as of this encounter
--- OUTSIDE RECORDS SUMMARY | 2024-11-02 09:16 | XMS_ITS | Encounter Summary ---
Author Organization [facility] Address [address] [place] [address] Care Team Providers Care Patient Svcs Mgr Name Role Phone Srinivasa Anderson MD Primary Care Provider Encounter Details Date Type Department Care Team (Latest Contact Info) Description 05/15/2006 Outpatient Historical [facility] [place] [place] [address] Srinivasa Anderson MD [address] [place] [address] Other Testicular Hypofunction (Primary Dx) Social History Tobacco Use Types Packs/Day Years Used Date Smoking Tobacco: Never Assessed Sex and Gender Information Value Date Recorded Sex Assigned at Not on file Legal Sex Male 3:08 AM GEAR ROLLER Gender Identity Not on file Sexual Orientation Not on file documented as of this encounter Plan of Treatment Not on file documented as of this encounter Visit Diagnoses Diagnosis Other testicular hypofunction- Primary documented in this encounter Care Teams Patient Svcs Mgr Relationship Specialty Start Date End Date Srinivasa Anderson MD [address] [place] [address] PCP - General 07/18/04 documented as of this encounter
--- OUTSIDE RECORDS SUMMARY | 2024-11-02 09:16 | XMS_ITS | Encounter Summary ---
Author Organization [facility] Address [address] [facility] [place] [address] Care Team Providers Care Lathe Mechanic Name Role Phone Srinivasa Anderson MD Primary Care Provider [phone] Encounter Details Date Type Department Care Team (Latest Contact Info) Description 03/26/2006 Outpatient [facility] [place] [place] [address] Srinivasa Anderson MD [address] [place] [address] Other Testicular Hypofunction (Primary Dx); Vaccine for influenza; Lumbago Social History Tobacco Use Types Packs/Day Years Used Date Smoking Tobacco: Never Assessed Sex and Gender Information Value Date Recorded Sex Assigned at Not on file Legal Sex Male 3:08 AM DIRECTOR NEW PRODUCT Gender Identity Not on file Sexual Orientation Not on file documented as of this encounter Plan of Treatment Not on file documented as of this encounter Visit Diagnoses Diagnosis Other testicular hypofunction- Primary Vaccine for influenza Need for prophylactic vaccination and inoculation against influenza Lumbago documented in this encounter Care Teams Lathe Mechanic Relationship Specialty Start Date End Date Srinivasa Anderson MD [address] [place] [address] PCP - General 07/18/04 documented as of this encounter
--- OUTSIDE RECORDS SUMMARY | 2024-11-02 09:16 | XMS_ITS | Encounter Summary ---
Author Organization [facility] Address [address] [facility] [facility] [place] [address] Care Team Providers Care Peripheral Equipment Operator Name Role Phone Srinivasa Anderson MD Primary Care Provider [phone] Encounter Details Date Type Department Care Team (Latest Contact Info) Description 10/19/2005 Outpatient Historical [facility] [place] [place] [address] Srinivasa Anderson MD [address] [place] [address] Other Testicular Hypofunction (Primary Dx) Social History Tobacco Use Types Packs/Day Years Used Date Smoking Tobacco: Never Assessed Sex and Gender Information Value Date Recorded Sex Assigned at Not on file Legal Sex Male 3:08 AM SAFETY SPECIALIST Gender Identity Not on file Sexual Orientation Not on file documented as of this encounter Plan of Treatment Not on file documented as of this encounter Visit Diagnoses Diagnosis Other testicular hypofunction- Primary documented in this encounter Care Teams Peripheral Equipment Operator Relationship Specialty Start Date End Date Srinivasa Anderson MD [address] [place] [address] PCP - General 07/18/04 documented as of this encounter
--- OUTSIDE RECORDS SUMMARY | 2024-11-02 09:16 | XMS_ITS | Encounter Summary ---
Author Organization [facility] Address [address] [place] [address] Care Team Providers Care Engraver Tire Mold Name Role Phone Srinivasa Anderson MD Primary Care Provider [phone] Reason for Referral * Outpatient Services (Routine) - Closed Specialty Diagnoses / Procedures Referred By Contac t Referred To Contact Diagnoses Breast swelling Procedures MAMMO BREAST US LT Srinivasa Anderson MD [address] [place] [address] Phone: tel: fax: Referral ID Status Reason Start Date Expiration Date Visits Re quested Visits Authorized [id number] Closed 04/08/2012 04/08/2013 1 1 EMIC COMPUTING DIRECTOR Encounter Details Date Type Department Care Team (Late st Contact Info) Description 04/08/2012 [facility] [place] [place] [address] Srinivasa Anderson MD [address] [place] [address] Breast swelling Social History Tobacco Use Types Packs/Day Years Used Date Smoking Tobacco: Former Cigarettes 0.5 30 0 04/22/1962 - 04/22/1992 Smokeless Tobacco: Never Alcohol Use Standard Drinks/Week Comments No 0 (1 standard drink = 0.6 oz pur e alcohol) Sex and Gender Information Value Date Recorded Sex Assigned at Not on file Legal Sex Male 3:08 AM ACADEMIC COMPUTING DIRECTOR Gender Identity Not on file Sexual Orientation Not on file Occupation Industry Job Start Date Job End Date Not on file Not on file Not on file Not on file documented as of this encounter Plan of Treatment Not on file documented as of this encounter Results * MAMMO BREAST US LT (04/08/2012 11:31 AM ACADEMIC COMPUTING DIRECTOR) Anatomical Region Laterality Modality Breast Left Ultrasound 04/08/2012 11:1 3 AM ACADEMIC COMPUTING DIRECTOR Impressions 04/08/2012 8:55 PM ACADEMIC COMPUTING DIRECTOR IMPRESSION: Bilateral diagnostic exam and directed left breast ultrasound was performed today. The mammogram is unremarkable as well as the directed left breast ultrasound. Therefore clinical correlation is recommended regarding the reported symptoms. Patient received the result and recommendation letter. Spencer 1140 AM - uploaded from [employer] 04/08/2012 8:55 PM ACADEMIC COMPUTING DIRECTOR REASON FOR EXAM: Patient is reporting to [...] by the Computer Aided Detection System (CAD), twtrland ImageChecker, Version 8.3. LEFT BREAST ULTRASOUND: Sonographic [...] by the Computer Aided Detection System (CAD), twtrland [employer]cker, Version 8.3. LEFT BREAST ULTRASOUND: Sonographic evaluation [...] letter. DB/allie 1140 AM - uploaded from [employer] - us Srinivasa Anderson MD MAMMO ORDERABLES Final Result documented in this encounter Visit Diagnoses Diagnosis Breast swelling Lump or mass in breast Breast swelling Lump or mass in breast documented in this encounter Care Teams Engraver Tire Mold Relationship Specialty Start Date End Date Srinivasa Anderson MD [address] [address] PCP - General 07/18/04 documented as of this encounter
--- OUTSIDE RECORDS SUMMARY | 2024-11-02 09:16 | XMS_ITS | Encounter Summary ---
Author Organization 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); Depressive Disorder, not Elsewhere Classified Social History Tobacco Use Types Packs/Day Years Used Date Smoking Tobacco: Never Assessed Sex and Gender Information Value Date Recorded Sex Assigned at Not on file Legal Sex Male 3:08 AM FBI SPECIAL AGENT Gender Identity Not on file Sexual Orientation Not on file documented as of this encounter Plan of Treatment Not on file documented as of this encounter Visit Diagnoses Diagnosis Type II or unspecified type diabetes mellitus without mention of complication, not stated as uncontrolled- Primary Depressive disorder, not elsewhere classified documented in this encounter Care Teams Television Servicer Relationship Specialty Start Date End Date Srinivasa Anderson MD [address] [place] [address] PCP - General 07/18/04 documented as of this encounter
--- OUTSIDE RECORDS SUMMARY | 2024-11-02 09:16 | XMS_ITS | Encounter Summary ---
Author Organization [facility] Address [address] [place] [address] Care Team Providers Care Control System Computer Scientist Name Role Phone Srinivasa Anderson MD Primary Care Provider [phone] Encounter Details Date Type Department Care Team (Late st Contact Info) Description 05/03/2006 Outpatient Historical [facility] [address] [place] [address] Srinivasa Anderson MD [address] [id number] Social History Tobacco Use Types Packs/Day Years Used Date Smoking Tobacco: Never Assessed Sex and Gender Information Value Date Recorded Sex Assigned at Not on file Legal Sex Male 3:08 AM VIDEO GAME REPAIR TECHNICIAN Gender Identity Not on file Sexual Orientation Not on file documented as of this encounter Plan of Treatment Not on file documented as of this encounter Visit Diagnoses Not on filedocumented in this encounter Care Teams Control System Computer Scientist Relationship Specialty Start Date End Date Srinivasa Anderson MD [address] [facility] [address] [place] [address] PCP - General 07/18/04 documented as of this encounter
--- OUTSIDE RECORDS SUMMARY | 2024-11-02 09:16 | XMS_ITS | Encounter Summary ---
Author Organization [facility] Address [address] [facility] [place] [facility] [place] [address] Care Team Providers Care Reagent Tender Name Role Phone Srinivasa Anderson MD Primary Care Provider [phone] Encounter Details Date Type Department Care Team (Latest Contact Info) Description 10/10/2005 Outpatient Historical [facility] Dermatology- [facility] Marek [address] [place] [address] Zoltan Mahoney MD NO ADDRESS ON FILE Malig John Skin Ear (Primary Dx); Malig John Skin Arm Social History Tobacco Use Types Packs/Day Years Used Date Smoking Tobacco: Never Assessed Sex and Gender Information Value Date Recorded Sex Assigned at Not on file Legal Sex Male 3:08 AM DRAW END HAND Gender Identity Not on file Sexual Orientation Not on file documented as of this encounter Plan of Treatment Not on file documented as of this encounter Visit Diagnoses Diagnosis Malig john skin ear- Primary 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
--- OUTSIDE RECORDS SUMMARY | 2024-11-02 09:17 | XMS_ITS | Encounter Summary ---
Author Organization [facility] Address [address] [facility] [place] [address] Care Team Providers Care Freelance Operator Name Role Phone Srinivasa Anderson MD Primary Care Provider [phone] Encounter Details Date Type Department Care Team (Latest Contact Info) Description 12/27/2004 Outpatient Historical [facility] [place] [place] [address] Srinivasa Anderson MD [address] [place] [address] TESTICULAR HYPOFUNC NEC (Primary Dx) Social History Tobacco Use Types Packs/Day Years Used Date Smoking Tobacco: Never Assessed Sex and Gender Information Value Date Recorded Sex Assigned at Not on file Legal Sex Male 3:08 AM CURING ROOM WORKER Gender Identity Not on file Sexual Orientation Not on file documented as of this encounter Plan of Treatment Not on file documented as of this encounter Visit Diagnoses Diagnosis Other testicular hypofunction- Primary documented in this encounter Care Teams Freelance Operator Relationship Specialty Start Date End Date Srinivasa Anderson MD [address] [place] [address] PCP - General 07/18/04 documented as of this encounter
--- OUTSIDE RECORDS SUMMARY | 2024-11-02 09:17 | XMS_ITS | Encounter Summary ---
Author Organization [facility] Address [address] [facility] [place] [address] Care Team Providers Care Look Out Tower Fire Watcher Name Role Phone Srinivasa Anderson MD Primary Care Provider [phone] Encounter Details Date Type Department Care Team (Latest Contact Info) Description 08/30/2003 Outpatient Historical [facility] Int [facility] [place] [place] [address] Mark Lux MD [address] [place] [address] ABDOMINAL PAIN UNSPEC SITE (Primary Dx) Social History Tobacco Use Types Packs/Day Years Used Date Smoking Tobacco: Never Assessed Sex and Gender Information Value Date Recorded Sex Assigned at Not on file Legal Sex Male 3:08 AM BOBBIN LOOSE END FINDER Gender Identity Not on file Sexual Orientation Not on file documented as of this encounter Plan of Treatment Not on file documented as of this encounter Visit Diagnoses Diagnosis Abdominal pain, unspecified site- Primary documented in this encounter Care Teams Look Out Tower Fire Watcher Relationship Specialty Start Date End Date Srinivasa Anderson MD [address] [place] [address] PCP - General 07/18/04 documented as of this encounter
--- OUTSIDE RECORDS SUMMARY | 2024-11-02 09:17 | XMS_ITS | Encounter Summary ---
Author Organization [facility] Address [address] [facility] [address] [place] [address] Care Team Providers Care Barrel Cap Setter Name Role Phone Srinivasa Anderson MD Primary Care Provider [phone] Encounter Details Date Type Department Care Team (Latest Contact Info) Description 11/10/2003 Outpatient Historical [facility] Imaging Services-Nilay Robles [place] [address] [place] [address] Mark Lux MD [address] [place] [address] HYPERTENSION NOS (Primary Dx) Social History Tobacco Use Types Packs/Day Years Used Date Smoking Tobacco: Never Assessed Sex and Gender Information Value Date Recorded Sex Assigned at Not on file Legal Sex Male 3:08 AM ASSOCIATE PROFESSOR OF VIOLIN Gender Identity Not on file Sexual Orientation Not on file documented as of this encounter Plan of Treatment Not on file documented as of this encounter Visit Diagnoses Diagnosis Unspecified essential hypertension- Primary documented in this encounter Care Teams Barrel Cap Setter Relationship Specialty Start Date End Date Srinivasa Anderson MD [address] [place] [address] PCP - General 07/18/04 documented as of this encounter
--- OUTSIDE RECORDS SUMMARY | 2024-11-02 09:17 | XMS_ITS | Encounter Summary ---
Author Organization [facility] Address [address] [facility] [address] Care Team Providers Care Private Chef Name Role Phone Srinivasa Anderson MD Primary Care Provider [phone] Encounter Details Date Type Department Care Team (Latest Contact Info) Description 05/30/1998 Outpatient Historical [facility] Dermatology- [facility] Marek [address] [place] [address] Zoltan Mahoney MD NO ADDRESS ON FILE Other seborrheic keratosis (Primary Dx) Social History Tobacco Use Types Packs/Day Years Used Date Smoking Tobacco: Never Assessed Sex and Gender Information Value Date Recorded Sex Assigned at Not on file Legal Sex Male 3:08 AM FIRE PROTECTION ENGINEER Gender Identity Not on file Sexual Orientation Not on file documented as of this encounter Plan of Treatment Not on file documented as of this encounter Visit Diagnoses Diagnosis Other seborrheic keratosis- Primary documented in this encounter Care Teams Private Chef Relationship Specialty Start Date End Date Srinivasa Anderson MD [address] [place] [address] PCP - General 07/18/04 documented as of this encounter
--- OUTSIDE RECORDS SUMMARY | 2024-11-02 09:17 | XMS_ITS | Encounter Summary ---
Author Organization [facility] Address [address] [facility] [address] Care Team Providers Care Child And Family Therapist Name Role Phone Srinivasa Anderson MD Primary Care Provider Encounter Details Date Type Department Care Team (Latest Contact Info) Description 06/29/1999 Outpatient Historical [facility] Dermatology- [facility] Marek [address] [place] [address] Zoltan Mahoney MD NO ADDRESS ON FILE Actinic keratosis (Primary Dx); Malig amado skin arm; Inflamed seborr keratos Social History Tobacco Use Types Packs/Day Years Used Date Smoking Tobacco: Never Assessed Sex and Gender Information Value Date Recorded Sex Assigned at Not on file Legal Sex Male 3:08 AM SHIPPING ROOM HELPER Gender Identity Not on file Sexual Orientation Not on file documented as of this encounter Plan of Treatment Not on file documented as of this encounter Visit Diagnoses Diagnosis Actinic keratosis- Primary Malig amado skin arm 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
--- OUTSIDE RECORDS SUMMARY | 2024-11-02 09:17 | XMS_ITS | Encounter Summary ---
Author Organization [facility] Address [address] [place] [address] Care Team Providers Care Procurement Consultant Name Role Phone Srinivasa Anderson MD Primary Care Provider [phone] Encounter Details Date Type Department Care Team (Latest Contact Info) Description 11/06/2002 Outpatient [facility] Int [facility] [place] [place] [address] Mark Lux MD [address] [place] [address] HYPERTENSION NOS (Primary Dx); Pure hypercholesterolem; OTHER MALAISE AND FATIGUE; VACCINE FOR STREP PNEUMONIAE Social History Tobacco Use Types Packs/Day Years Used Date Smoking Tobacco: Never Assessed Sex and Gender Information Value Date Recorded Sex Assigned at Not on file Legal Sex Male 3:08 AM CORRECTIONAL SUBSTANCE ABUSE COUNSELOR Gender Identity Not on file Sexual Orientation Not on file documented as of this encounter Plan of Treatment Not on file documented as of this encounter Visit Diagnoses Diagnosis Unspecified essential hypertension- Primary Pure hypercholesterolem Pure hypercholesterolemia Other malaise and fatigue Need for prophylactic vaccination against Streptococcus pneumoniae (pneumococcus) Need for prophylactic vaccination against streptococcus pneumoniae (pneumococcus) documented in this encounter Care Teams Procurement Consultant Relationship Specialty Start Date End Date Srinivasa Anderson MD [address] [place] [address] PCP - General 07/18/04 documented as of this encounter
--- OUTSIDE RECORDS SUMMARY | 2024-11-02 09:17 | XMS_ITS | Encounter Summary ---
Author Organization [facility] Address [address] [facility] [place] [address] Care Team Providers Care Underwear Hemmer Name Role Phone Srinivasa Anderson MD Primary Care Provider [phone] Encounter Details Date Type Department Care Team (Latest Contact Info) Description 02/08/2004 Outpatient Historical [facility] Imaging Services-Nilay Robles [place] [address] [place] [address] Mark Lux MD [address] [place] [address] HEMATURIA (Primary Dx) Social History Tobacco Use Types Packs/Day Years Used Date Smoking Tobacco: Never Assessed Sex and Gender Information Value Date Recorded Sex Assigned at Not on file Legal Sex Male 3:08 AM NETWORK OPERATIONS CENTER ENGINEER Gender Identity Not on file Sexual Orientation Not on file documented as of this encounter Plan of Treatment Not on file documented as of this encounter Visit Diagnoses Diagnosis Hematuria- Primary documented in this encounter Care Teams Underwear Hemmer Relationship Specialty Start Date End Date Srinivasa Anderson MD [address] [place] [address] PCP - General 07/18/04 documented as of this encounter
--- OUTSIDE RECORDS SUMMARY | 2024-11-02 09:17 | XMS_ITS | Encounter Summary ---
Author Organization [facility] Address [address] [place] [facility] [place] [address] Care Team Providers Care Sampler Ovens Name Role Phone Srinivasa Anderson MD Primary Care Provider [phone] Encounter Details Date Type Department Care Team (Late st Contact Info) Description 03/30/2004 Outpatient Historical [facility]rology- [place] [address] [facility] [address] 3[address] [place] [address] Erasmo Rosas MD NO ADDRESS ON FILE OTHER SPEC DISORDER URINARY TRACT (Primary Dx) Social History Tobacco Use Types Packs/Day Years Used Date Smoking Tobacco: Never Assessed Sex and Gender Information Value Date Recorded Sex Assigned at Not on file Legal Sex Male 3:08 AM DIRECTOR FURNITURE Gender Identity Not on file Sexual Orientation Not on file documented as of this encounter Plan of Treatment Not on file documented as of this encounter Visit Diagnoses Diagnosis Other specified disorders of urinary tract- Primary documented in this encounter Care Teams Sampler Ovens Relationship Specialty Start Date End Date Srinivasa Anderson MD [address] [place] [address] PCP - General 07/18/04 documented as of this encounter
--- OUTSIDE RECORDS SUMMARY | 2024-11-02 09:17 | XMS_ITS | Encounter Summary ---
Author Organization [facility] Address [address] [facility] [place] [address] Care Team Providers Care Fashion Designer Name Role Phone Srinivasa Anderson MD Primary Care Provider [phone] Encounter Details Date Type Department Care Team (Late st Contact Info) Description 02/17/[address] [facility] Imaging Services-[place] Carrie [address] [place] [address] Yfn Hahn MD [address] [place] [address] COUGH (Primary Dx); RESPIRATORY ABNORM NEC Social History Tobacco Use Types Packs/Day Years Used Date Smoking Tobacco: Never Assessed Sex and Gender Information Value Date Recorded Sex Assigned at Not on file Legal Sex Male 3:08 AM RN TELEPHONIC Gender Identity Not on file Sexual Orientation Not on file documented as of this encounter Plan of Treatment Not on file documented as of this encounter Visit Diagnoses Diagnosis Cough- Primary Other dyspnea and respiratory abnormality documented in this encounter Care Teams Fashion Designer Relationship Specialty Start Date End Date Srinivasa Anderson MD [address] [place] [address] PCP - General 07/18/04 documented as of this encounter
--- OUTSIDE RECORDS SUMMARY | 2024-11-02 09:17 | XMS_ITS | Encounter Summary ---
Author Organization [facility] Address [address] [place] [address] Care Team Providers Care Performing Artist Name Role Phone Srinivasa Anderson MD Primary Care Provider [phone] Encounter Details Date Type Department Care Team (Latest Contact Info) Description 09/01/2002 Outpatient Historical [facility] Imaging Services [address] [place] [address] Mark Lux MD [address] [place] [address] JOINT PAIN-PELVIS (Primary Dx) Social History Tobacco Use Types Packs/Day Years Used Date Smoking Tobacco: Never Assessed Sex and Gender Information Value Date Recorded Sex Assigned at Not on file Legal Sex Male 3:08 AM E COMMERCE DIRECTOR Gender Identity Not on file Sexual Orientation Not on file documented as of this encounter Plan of Treatment Not on file documented as of this encounter Visit Diagnoses Diagnosis Pain in joint, pelvic region and thigh- Primary documented in this encounter Care Teams Performing Artist Relationship Specialty Start Date End Date Srinivasa Anderson MD [address] [place] [address] PCP - General 07/18/04 documented as of this encounter
--- OUTSIDE RECORDS SUMMARY | 2024-11-02 09:17 | XMS_ITS | Encounter Summary ---
Author Organization [facility] Address [address] [facility] [place] [address] Care Team Providers Care Second Ride Fare Collector Name Role Phone Srinivasa Anderson MD Primary Care Provider [phone] Encounter Details Date Type Department Care Team (Latest Contact Info) Description 04/05/2003 Outpatient Historical [facility] Imaging Services-Nilay Robles [place] [address] [place] [address] Mark Lux MD [address] [place] [address] ABDOMINAL PAIN EPIGASTRIC (Primary Dx) Social History Tobacco Use Types Packs/Day Years Used Date Smoking Tobacco: Never Assessed Sex and Gender Information Value Date Recorded Sex Assigned at Not on file Legal Sex Male 3:08 AM FERMENTER WINE Gender Identity Not on file Sexual Orientation Not on file documented as of this encounter Plan of Treatment Not on file documented as of this encounter Visit Diagnoses Diagnosis Abdominal pain, epigastric- Primary documented in this encounter Care Teams Second Ride Fare Collector Relationship Specialty Start Date End Date Srinivasa Anderson MD [address] [place] [address] PCP - General 07/18/04 documented as of this encounter
--- OUTSIDE RECORDS SUMMARY | 2024-11-02 09:17 | XMS_ITS | Encounter Summary ---
Author Organization [facility] Address [address] [facility] [place] [address] Care Team Providers Care Newcomer Hostess Name Role Phone Srinivasa Anderson MD Primary Care Provider [phone] Encounter Details Date Type Department Care Team (Latest Contact Info) Description 05/07/2003 Outpatient Historical [facility] Int [facility] [place] [place] [address] Mark Lux MD [address] [place] [address] HYPERTENSION NOS (Primary Dx); Pure hypercholesterolem Social History Tobacco Use Types Packs/Day Years Used Date Smoking Tobacco: Never Assessed Sex and Gender Information Value Date Recorded Sex Assigned at Not on file Legal Sex Male 3:08 AM PLYWOOD LAYUP LINE BACK FEEDER Gender Identity Not on file Sexual Orientation Not on file documented as of this encounter Plan of Treatment Not on file documented as of this encounter Visit Diagnoses Diagnosis Unspecified essential hypertension- Primary Pure hypercholesterolem Pure hypercholesterolemia documented in this encounter Care Teams Newcomer Hostess Relationship Specialty Start Date End Date Srinivasa Anderson MD [address] [place] [address] PCP - General 07/18/04 documented as of this encounter
--- OUTSIDE RECORDS SUMMARY | 2024-11-02 09:17 | XMS_ITS | Encounter Summary ---
Author Organization [facility] Address [address] [facility] [address] Care Team Providers Care Mobile Manager Name Role Phone Srinivasa Anderson MD Primary Care Provider Encounter Details Date Type Department Care Team (Late st Contact Info) Description 11/27/2000 Outpatient Historical [facility] Yfn Hahn MD [address] [place], [place] [id number] Other pulmonary embolism and infarction (CMS/HCC) (Primary Dx) Social History Tobacco Use Types Packs/Day Years Used Date Smoking Tobacco: Never Assessed Sex and Gender Information Value Date Recorded Sex Assigned at Not on file Legal Sex Male 3:08 AM JAVASCRIPT UI DEVELOPER Gender Identity Not on file Sexual Orientation Not on file documented as of this encounter Plan of Treatment Not on file documented as of this encounter Visit Diagnoses Diagnosis Other pulmonary embolism and infarction (CMS/HCC)- Primary Other pulmonary embolism and infarction documented in this encounter Care Teams Mobile Manager Relationship Specialty Start Date End Date Srinivasa Anderson MD [address] [place] [address] PCP - General 07/18/04 documented as of this encounter
--- OUTSIDE RECORDS SUMMARY | 2024-11-02 09:17 | XMS_ITS | Encounter Summary ---
Author Organization [facility] Address [address] [facility] [place] [address] Care Team Providers Care Oracle Adf Developer Name Role Phone Srinivasa Anderson MD Primary Care Provider [phone] Encounter Details Date Type Department Care Team (Latest Contact Info) Description 06/03/1997 Outpatient Historical [facility] [address] [place] [address] Zoltan Mahoney MD NO ADDRESS ON FILE 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 (Primary Dx); Inflamed seborr keratos; Other seborrheic keratosis Social History Tobacco Use Types Packs/Day Years Used Date Smoking Tobacco: Never Assessed Sex and Gender Information Value Date Recorded Sex Assigned at Not on file 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 Sex 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
--- OUTSIDE RECORDS SUMMARY | 2024-11-02 09:17 | XMS_ITS | Encounter Summary ---
Author Organization [facility] Address [address] [place] [address] Care Team Providers Care Stock Patch Sawyer Name Role Phone Srinivasa Anderson MD Primary Care Provider Encounter Details Date Type Department Care Team (Latest Contact Info) Description 10/26/2004 Outpatient Historical [facility] [address] [place] 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
--- OUTSIDE RECORDS SUMMARY | 2024-11-02 09:17 | XMS_ITS | Encounter Summary ---
Author Organization [facility] Address [address] [place] [address] Care Team Providers Care Electrical Lineman Name Role Phone Srinivasa Anderson MD Primary Care Provider [phone] Encounter Details Date Type Department Care Team (Latest Contact Info) Description 09/23/2002 Outpatient Historical [facility] Dermatology- [facility] [place] [address] [place] [id number] Zoltan Mahoney MD NO ADDRESS ON FILE ACTINIC KERATOSIS (Primary Dx); MALIG NEOPLASM SKIN FACE NEC; Inflamed seborr keratos Social History Tobacco Use Types Packs/Day Years Used Date Smoking Tobacco: Never Assessed Sex and Gender Information Value Date Recorded Sex Assigned at Not on file Legal Sex Male 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
--- OUTSIDE RECORDS SUMMARY | 2024-11-02 09:17 | XMS_ITS | Encounter Summary ---
Author Organization [facility] Address [address] [place] [address] Care Team Providers Care Sales Development Representative Name Role Phone Srinivasa Anderson MD Primary Care Provider [phone] Encounter Details Date Type Department Care Team (Late st Contact Info) Description 11/05/2000 Outpatient Historical [facility] [place] [place] [address] Yfn Hahn MD [address] [place] [address] Allergic rhinitis, cause unspecified (Primary Dx); Unspecified essential hypertension Social History Tobacco Use Types Packs/Day Years Used Date Smoking Tobacco: Never Assessed Sex and Gender Information Value Date Recorded Sex Assigned at Not on file 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
--- OUTSIDE RECORDS SUMMARY | 2024-11-02 09:17 | XMS_ITS | Encounter Summary ---
Author Organization [facility] Address [address] [place] [address] Care Team Providers Care Regulatory Affairs Internship Name Role Phone Srinivasa Anderson MD Primary Care Provider [phone] Encounter Details Date Type Department Care Team (Latest Contact Info) Description 08/04/2002 Outpatient Historical [facility] Imaging Services-Nilay Robles [place] [address] [place] [address] Mark Lux MD [address] [place] [address] JOINT PAIN-PELVIS (Primary Dx) Social History Tobacco Use Types Packs/Day Years Used Date Smoking Tobacco: Never Assessed Sex and Gender Information Value Date Recorded Sex Assigned at Not on file 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
--- OUTSIDE RECORDS SUMMARY | 2024-11-02 09:17 | XMS_ITS | Encounter Summary ---
Author Organization [facility] Address [address] [facility] [place] [address] Care Team Providers Care Foot Press Operator Name Role Phone Srinivasa Anderson MD Primary Care Provider [phone] Encounter Details Date Type Department Care Team (Latest Contact Info) Description 09/11/2002 Outpatient Historical [facility] Dermatology- [facility] M[address] [place] [id number] Zoltan Mahoney MD NO ADDRESS ON FILE ACTINIC KERATOSIS (Primary Dx); Malig amado scalp/skin neck; SEBORRHEIC KERATOSIS NOS Social History Tobacco Use Types Packs/Day Years Used Date Smoking Tobacco: Never Assessed Sex and Gender Information Value Date Recorded Sex Assigned at Not on file 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
--- OUTSIDE RECORDS SUMMARY | 2024-11-02 09:17 | XMS_ITS | Encounter Summary ---
Author Organization [facility] Address [address] 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
--- OUTSIDE RECORDS SUMMARY | 2024-11-02 09:17 | XMS_ITS | Encounter Summary ---
Author Organization [facility] Address [address] [facility] [place] [address] Care Team Providers Care Reinforcing Steel Worker Name Role Phone Srinivasa Anderson MD Primary Care Provider [phone] Encounter Details Date Type Department Care Team (Latest Contact Info) Description 02/08/2004 Outpatient Historical [facility] Int [facility] [place] [place] [address] Mark Lux MD [address] [place] [address] HEMATURIA (Primary Dx); LUMBAGO; Vaccine for influenza Social History Tobacco Use Types Packs/Day Years Used Date Smoking Tobacco: Never Assessed Sex and Gender Information Value Date Recorded Sex Assigned at Not on file Legal Sex Male 3: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
--- OUTSIDE RECORDS SUMMARY | 2024-11-02 09:17 | XMS_ITS ---
Author Organization [facility] Address [address] [place] [address] Phone Care Team Providers Care Track Fitter Name Role Phone Srinivasa Anderson MD Primary Care Provider [phone] Active Problems Problem Noted Date Diagnosed Date Urinary hesitancy 07/02/2023 Aortic stenosis 07/02/2023 Nocturia more than twice per night 07/02/2023 Depression 07/02/2023 Chronic neck pain 07/02/2023 Allergic rhinitis 07/02/2023 Abdominal discomfort 07/02/2023 Bilateral inguinal hernia 05/29/2023 Status post implantation of mitral valve leaflet clip 03/29/2023 Cardiac pacemaker in situ 03/21/2023 Syncope and collapse 03/21/2023 Pulmonary hypertension 01/25/2023 Other ascites 01/24/2023 Acute cystitis 01/24/2023 Acute on chronic combined sy stolic and diastolic congestive heart failure 01/24/2023 Stage 3a chronic kidney disease 01/21/2023 Pulmonary emphysema 01/21/2023 Lupus erythematosus overlap syndrome 01/21/2023 Hiatal hernia 01/21/2023 Peripheral edema 01/21/2023 S/P placement of leadless cardiac pacemaker 11/20 Anemia 11/29/2022 JOSSELYN (acute kidney injury) 11/29/2022 Acute blood loss anemia 11/29/2022 Complete heart block 10/30/2022 Chronic diastolic congestive heart failure 10/30 Presence of Watchman left atrial appendage closu re device 08/14/2022 At high risk for bleeding 08/14/2022 Persistent atrial fibrillation 06/11/2022 Fall 06/02/2022 Intraparenchymal hemorrhage of brain 06/02/2022 HTN (hypertension), benign 06/02/2022 DM (diabetes mellitus), type 2 06/02/2022 Closed fracture of multiple ribs of left side Skin tear of upper extremity--small, bilateral 0 06/02/2022 Contusion of face 06/02/2022 Vertigo 06/02/2022 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 Pseudophakia of right eye 09/06/2016 Combined forms of age-related cataract of right eye 08/30/2016 Pseudophakia of left eye 08/23/2016 Severe mitral valve regurgitation 06/15/2016 Weight loss, non-intentional 05/29/2016 History of pulmonary embolus (PE) 01/27/2016 Diabetic polyneuropathy asso ciated with type 2 diabetes mellitus 01/26/2016 S/P TAVR (transcatheter aortic valve replacement ) 06/30/2015 Overview (01/23/2023): >>OVERVIEW FOR SEVERE AORTIC VALVE STENOSIS WRITTEN ON 10/31/2022 11:36 AM BY GABRIELA EWING FNP 10/30/22: 34 mm Medtronic EvolutFx porcine prosthesis Pernicious anemia 01/28/2014 Dupuytren's disease of palm 01/14/2014 Rheumatoid arthritis 01/31/2012 Other and unspecified malign ant neoplasm of scalp and skin of neck 12/01/2009 Basal cell epithelioma, face 12/01/2009 Other malignant neoplasm of skin of trunk, excep t scrotum 12/01/2009 Asteatosis 06/02/2009 Personal history of other malignant neoplasm of skin 06/02/2009 Basal cell epithelioma, ear 01/27/2008 Squamous cell carcinoma, trunk 01/27/2008 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 Past Treatment and Therapy Plans Lifetime Dose Tracking * Chemical Lifetime Dose Automatic Entry Manual Entr y Effective Dose 146.42 mSv 144.62 mSv 1.8 mSv Total DLP 7,964.98 DLP 7,208.98 DLP 756 DLP CTDIvol Max 290.34 mGy 196.64 mGy 93.7 mGy CTDIvol Min 55.66 mGy 27.86 mGy 27.8 mGy Air Kerma 1,300 mGy 0 mGy 1,300 mGy Dose Area Product (DAP) 4,115.13 Gy-cm2 0 Gy-cm2 4 ,115.13 Gy-cm2 Resolved Problems Problem Noted Date Diagnosed Date Resolved Date Moderate protein-calorie malnutrition 01/29/2023 02/01/2023 Cirrhosis of liver with ascites 01/25/2023 02/01/2023 Thrombocytopenia 01/21/2023 11/19/2023 Atrial fibrillation with RVR 06/02/2022 06/06/2022 Traumatic hemorrhage of cere helio with loss of consciousness of 30 minutes or less 06/02/2022 07/3 Chronic anticoagulation 03/20/2016 07/0 05/2022 Nummular eczema 08/18/2009 06/30/2010 Intradermal nevus 11/30/2008 06/30/2010 Actinic keratosis 10/16/2007 06/30/2010 Inflamed seborrheic keratosis 10/16/2007 06/30/2010 Other seborrheic keratosis 10/16/2007 0 06/30/2010 Other abnormal blood chemistry 12/23/2013 Anxiety state, unspecified 0 04/30/2018
--- OUTSIDE RECORDS SUMMARY | 2024-11-02 09:17 | XMS_ITS | Encounter Summary ---
Author Organization [facility] Address [address] [place] [address] Care Team Providers Care Radio News Writer Name Role Phone Srinivasa Anderson MD Primary Care Provider [phone] Encounter Details Date Type Department Care Team (Latest Contact Info) Description 02/08/2004 Outpatient Historical [facility] Imaging Services-Nilay Robles [place] [address] [place] [address] Mark Lux MD [address] [place] [address] HEMATURIA (Primary Dx) Social History Tobacco Use Types Packs/Day Years Used Date Smoking Tobacco: Never Assessed Sex and Gender Information Value Date Recorded Sex Assigned at Not on file Legal Sex Male 3:08 AM 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
--- OUTSIDE RECORDS SUMMARY | 2024-11-02 09:17 | XMS_ITS | Encounter Summary ---
Author Organization [facility] Address [address] [facility] [place] [address] Care Team Providers Care Abstract Manager Name Role Phone Srinivasa Anderson MD Primary Care Provider [phone] Encounter Details Date Type Department Care Team (Latest Contact Info) Description 04/18/2005 Outpatient Historical [facility] [place] [place] [address] Srinivasa Anderson MD [address] [place] [address] TESTICULAR HYPOFUNC NEC (Primary Dx) Social History Tobacco Use Types Packs/Day Years Used Date Smoking Tobacco: Never Assessed Sex and Gender Information Value Date Recorded Sex Assigned at Not on file Legal Sex Male 3:08 AM 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
--- OUTSIDE RECORDS SUMMARY | 2024-11-02 09:17 | XMS_ITS | Encounter Summary ---
Author Organization [facility] Address [address] [place] [address] Care Team Providers Care Motor Grader Operator Name Role Phone Srinivasa Anderson MD Primary Care Provider [phone] Encounter Details Date Type Department Care Team (Latest Contact Info) Description 07/18/2004 Outpatient Historical 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
--- OUTSIDE RECORDS SUMMARY | 2024-11-02 09:17 | XMS_ITS | Encounter Summary ---
Author Organization [facility] Address [address] [facility] [place] [address] Care Team Providers Care Financial Cost Analyst Name Role Phone Srinivasa Anderson MD Primary Care Provider [phone] Encounter Details Date Type Department Care Team (Latest Contact Info) Description 01/17/2005 Outpatient Historical [facility] Imaging Services-Nilay Robles [place] [address] [place] [address] Juma Eng, DPM [address] [place] [address] BUNION (Primary Dx) Social History Tobacco Use Types Packs/Day Years Used Date Smoking Tobacco: Never Assessed Sex and Gender Information Value Date Recorded Sex Assigned at Not on file Legal Sex Male 3:08 AM RENEWALS SPECIALIST Gender Identity Not on file Sexual Orientation Not on file documented as of this encounter Plan of Treatment Not on file documented as of this encounter Visit Diagnoses Diagnosis Bunion- Primary documented in this encounter Care Teams Financial Cost Analyst Relationship Specialty Start Date End Date Srinivasa Anderson MD [address] [place] [address] PCP - General 07/18/04 documented as of this encounter
--- OUTSIDE RECORDS SUMMARY | 2024-11-02 09:17 | XMS_ITS | Encounter Summary ---
Author Organization [facility] Address [address] [facility] [place] [address] Care Team Providers Care Trucksmith Name Role Phone Srinivasa Anderson MD Primary Care Provider [phone] Encounter Details Date Type Department Care Team (Latest Contact Info) Description 11/24/2004 Outpatient Historical [facility] [place] [place] [address] Srinivasa Anderson MD [address] [place] [address] TESTICULAR HYPOFUNC NEC (Primary Dx) Social History Tobacco Use Types Packs/Day Years Used Date Smoking Tobacco: Never Assessed Sex and Gender Information Value Date Recorded Sex Assigned at Not on file 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
--- OUTSIDE RECORDS SUMMARY | 2024-11-02 09:17 | XMS_ITS | Encounter Summary ---
Author Organization [facility] Address [address] 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
--- OUTSIDE RECORDS SUMMARY | 2024-11-02 09:17 | XMS_ITS | Encounter Summary ---
Author Organization [facility] Address [address] [facility] [address] Care Team Providers Care Cream Buyer Name Role Phone Srinivasa Anderson MD Primary Care Provider [phone] Encounter Details Date Type Department Care Team (Latest Contact Info) Description 06/28/2004 Outpatient Historical [facility] [place] [place] [address] Srinivasa Anderson MD [address] [place] [address] PULM EMBOLISM/INFARCT IATROGENIC (CMS/HCC) (Primary Dx); PERNICIOUS ANEMIA; Benign amado lg bowel; NOCTURIA Social History Tobacco Use Types Packs/Day Years Used Date Smoking Tobacco: Never Assessed Sex and Gender Information Value Date Recorded Sex Assigned at Not on file Legal Sex Male 3:08 AM STAFF 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
--- OUTSIDE RECORDS SUMMARY | 2024-11-02 09:17 | XMS_ITS | Encounter Summary ---
Author Organization [facility] Address [address] [place] [address] Care Team Providers Care Inset Cutter Name Role Phone Srinivasa Anderson MD Primary Care Provider [phone] Encounter Details Date Type Department Care Team (Latest Contact Info) Description 02/18/[address] [facility] [address] [place] [address] Zoltan Mahoney MD NO ADDRESS ON FILE PERS HX SKIN MALIGNANCY NEC (Primary Dx); SEBORRHEIC KERATOSIS NOS; ACTINIC KERATOSIS Social History Tobacco Use Types Packs/Day Years Used Date Smoking Tobacco: Never Assessed Sex and Gender Information Value Date Recorded Sex Assigned at Not on file Legal Sex Male 3:08 AM VP COMPLIANCE Gender Identity Not on file Sexual Orientation Not on file documented as of this encounter Plan of Treatment Not on file documented as of this encounter Visit Diagnoses Diagnosis Personal history of other malignant neoplasm of skin- Primary Other seborrheic keratosis Actinic keratosis documented in this encounter Care Teams Inset Cutter Relationship Specialty Start Date End Date Srinivasa Anderson MD [address] [place] [address] PCP - General 07/18/04 documented as of this encounter
--- OUTSIDE RECORDS SUMMARY | 2024-11-02 09:17 | XMS_ITS | Encounter Summary ---
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 Social History Tobacco Use Types Packs/Day Years Used Date Smoking Tobacco: Never Assessed Sex and Gender Information Value Date Recorded Sex Assigned at Not on file 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
--- OUTSIDE RECORDS SUMMARY | 2024-11-02 09:17 | XMS_ITS | Encounter Summary ---
Author Organization [facility] Address [address] [facility] [place] [address] Care Team Providers Care Technical Intern Name Role Phone Srinivasa Anderson MD Primary Care Provider [phone] Encounter Details Date Type Department Care Team (Latest Contact Info) Description 01/17/2005 Outpatient Historical [facility] Podiatry-Nilay Robles [address] [place] [address] Juma Eng, DPM [address] [place] [address] GANGLION OF JOINT (Primary Dx); BUNION; EXOSTOSIS, SITE NOS Social History Tobacco Use Types Packs/Day Years Used Date Smoking Tobacco: Never Assessed Sex and Gender Information Value Date Recorded Sex Assigned at Not on file 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
--- OUTSIDE RECORDS SUMMARY | 2024-11-02 09:17 | XMS_ITS | Encounter Summary ---
Author Organization [facility] Address [address] [place] [address] Care Team Providers Care Seamless Tube Mill Operator Name Role Phone Srinivasa Anderson MD Primary Care Provider [phone] Encounter Details Date Type Department Care Team (Latest Contact Info) Description 05/08/2001 Outpatient Historical [facility] Int [facility] [place] [place] [address] Mark Lux MD [address] [place] [address] HYPERTENSION NOS (Primary Dx); 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 ANTICOAG USE; PULM EMBOLISM/INFARCT IATROGENIC (CMS/HCC) Social History Tobacco Use Types Packs/Day Years Used Date Smoking Tobacco: Never Assessed Sex and Gender Information Value Date Recorded Sex Assigned at Not on file 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 Gender Identity Not on file Sexual Orientation Not on file documented as of this encounter Plan of Treatment Not on file documented as of this encounter Visit Diagnoses Diagnosis Unspecified essential hypertension- Primary skilled nursing (current) use of anticoagulants Long-term (current) use of anticoagulants 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
--- OUTSIDE RECORDS SUMMARY | 2024-11-02 09:17 | XMS_ITS | Encounter Summary ---
Author Organization [facility] Address [address] [place] [address] Care Team Providers Care Home Weatherizing Worker Name Role Phone Srinivasa Anderson MD Primary Care Provider [phone] Encounter Details Date Type Department Care Team (Latest Contact Info) Description 11/06/2002 Outpatient Historical [facility] Imaging Services-Nilay Robles [place] [address] [place] [address] Mark Lux MD [address] [place] [address] HYPERTENSION NOS (Primary Dx) Social History Tobacco Use Types Packs/Day Years Used Date Smoking Tobacco: Never Assessed Sex and Gender Information Value Date Recorded Sex Assigned at Not on file 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
--- OUTSIDE RECORDS SUMMARY | 2024-11-02 09:17 | XMS_ITS | Encounter Summary ---
Author Organization [facility] Address [address] [facility] [place] [address] Care Team Providers Care Hobbies And Crafts Sales Representative Name Role Phone Srinivasa Anderson MD Primary Care Provider [phone] Encounter Details Date Type Department Care Team (Latest Contact Info) Description 09/08/2002 Outpatient Historical [facility] Robbi Post MD [address] [place] [phone] Spondylolisthesis (Primary Dx); JOINT PAIN-PELVIS; LUMBAGO Social History Tobacco Use Types Packs/Day Years Used Date Smoking Tobacco: Never Assessed Sex and Gender Information Value Date Recorded Sex Assigned at Not on file 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
--- OUTSIDE RECORDS SUMMARY | 2024-11-02 09:17 | XMS_ITS | Encounter Summary ---
Author Organization [facility] Address [address] [facility] [place] [address] Care Team Providers Care Journeyman Wireman Name Role Phone Srinivasa Anderson MD Primary Care Provider [phone] Encounter Details Date Type Department Care Team (Latest Contact Info) Description 01/26/2005 Outpatient Historical [facility] [place] [place] [address] Srinivasa Anderson MD [address] [place] [address] ANXIETY STATE NOS (Primary Dx); IMPOTENCE, ORGANIC ORIGN; MALAISE AND FATIGUE NEC; TESTICULAR HYPOFUNC NEC Social History Tobacco Use Types Packs/Day Years Used Date Smoking Tobacco: Never Assessed Sex and Gender Information Value Date Recorded Sex Assigned at Not on file 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
--- OUTSIDE RECORDS SUMMARY | 2024-11-02 09:17 | XMS_ITS | Encounter Summary ---
Author Organization [facility] Address [address] [facility] [place] [address] Care Team Providers Care Log Peeler Name Role Phone Srinivasa Anderson MD Primary Care Provider [phone] Encounter Details Date Type Department Care Team (Latest Contact Info) Description 10/26/2004 Outpatient Historical [facility] [place] [place] [address] Srinivasa Anderson MD [address] [place] [address] TESTICULAR HYPOFUNC NEC (Primary Dx) Social History Tobacco Use Types Packs/Day Years Used Date Smoking Tobacco: Never Assessed Sex and Gender Information Value Date Recorded Sex Assigned at Not on file 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
--- OUTSIDE RECORDS SUMMARY | 2024-11-02 09:17 | XMS_ITS | Encounter Summary ---
Author Organization [facility] Address [address] [facility] [place] [address] Care Team Providers Care Restaurant Service Manager Name Role Phone Srinivasa Anderson MD Primary Care Provider [phone] Encounter Details Date Type Department Care Team (Late st Contact Info) Description 10/21/2000 Outpatient Historical [facility] Int [facility] [place] [place] [address] Yfn Hahn MD [address] [place] [address] Routine medical exam (Primary Dx) Social History Tobacco Use Types Packs/Day Years Used Date Smoking Tobacco: Never Assessed Sex and Gender Information Value Date Recorded Sex Assigned at Not on file 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
--- OUTSIDE RECORDS SUMMARY | 2024-11-02 09:17 | XMS_ITS | Encounter Summary ---
Author Organization [facility] Address [address] [place] [address] Care Team Providers Care Wax Blender Name Role Phone Srinivasa Anderson MD Primary Care Provider [phone] Encounter Details Date Type Department Care Team (Latest Contact Info) Description 09/23/2002 Outpatient Historical [facility] Dermatology- [facility] [address] [place] [address] Zoltan Mahoney MD NO ADDRESS ON FILE MALIG NEOPLASM SKIN EAR (Primary Dx) Social History Tobacco Use Types Packs/Day Years Used Date Smoking Tobacco: Never Assessed Sex and Gender Information Value Date Recorded Sex Assigned at Not on file Legal Sex Male 3: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
--- OUTSIDE RECORDS SUMMARY | 2024-11-02 09:17 | XMS_ITS | Encounter Summary ---
Author Organization [facility] Address [address] [facility] [place] [address] Care Team Providers Care Supermarket Manager Name Role Phone Srinivasa Anderson MD Primary Care Provider [phone] Encounter Details Date Type Department Care Team (Latest Contact Info) Description 08/04/2002 Outpatient Historical [facility] Int [facility] [place] [place] [address] Mark Lux MD [address] [place] [address] JOINT PAIN-PELVIS (Primary Dx) Social History Tobacco Use Types Packs/Day Years Used Date Smoking Tobacco: Never Assessed Sex and Gender Information Value Date Recorded Sex Assigned at Not on file 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
--- OUTSIDE RECORDS SUMMARY | 2024-11-02 09:17 | XMS_ITS | Encounter Summary ---
Author Organization [facility] Address [address] [facility] [place] [address] Care Team Providers Care Lens Blocker Name Role Phone Srinivasa Anderson MD Primary Care Provider [phone] Encounter Details Date Type Department Care Team (Latest Contact Info) Description 12/02/2001 Outpatient Historical [facility] Int [facility] [place] [place] [address] Mark Lux MD [address] [place] [address] Pure hypercholesterolem (Primary Dx); HYPERTENSION NOS Social History Tobacco Use Types Packs/Day Years Used Date Smoking Tobacco: Never Assessed Sex and Gender Information Value Date Recorded Sex Assigned at Not on file 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
--- OUTSIDE RECORDS SUMMARY | 2024-11-02 09:17 | XMS_ITS | Encounter Summary ---
Author Organization [facility] Address [address] [facility] [place] [address] Care Team Providers Care Eyeglass Cutter Name Role Phone Srinivasa Anderson MD Primary Care Provider [phone] Encounter Details Date Type Department Care Team (Latest Contact Info) Description 03/27/2005 Outpatient Historical [facility] Dermatology- 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 Gender Identity Not on file Sexual Orientation Not on file documented as of this encounter Plan of Treatment Not on file documented as of this encounter Visit Diagnoses Diagnosis Actinic keratosis- Primary Inflamed seborr keratos Inflamed seborrheic keratosis Other seborrheic keratosis Malig amado skin arm 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
--- OUTSIDE RECORDS SUMMARY | 2024-11-02 09:17 | XMS_ITS | Encounter Summary ---
Author Organization [facility] Address [address] [facility] [place] [address] Care Team Providers Care Bowling Floor Manager Name Role Phone Srinivasa Anderson MD Primary Care Provider [phone] Encounter Details Date Type Department Care Team (Late st Contact Info) Description 10/21/2000 Outpatient Historical [facility] Yfn Hahn MD [address] [place], [place] [id number] Unspecified essential hypertension (Primary Dx); Other vitamin B12 deficiency anemia; Routine medical exam; Special screening for malignant neoplasm of prostate; Femoral vein phlebitis (CMS/HCC) Social History Tobacco Use Types Packs/Day Years Used Date Smoking Tobacco: Never Assessed Sex and Gender Information Value Date Recorded Sex Assigned at Not on file 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 Gender Identity Not on file Sexual Orientation Not on file documented as of this encounter Plan of Treatment Not on file documented as of this encounter Visit Diagnoses Diagnosis Unspecified essential hypertension- Primary Other vitamin B12 deficiency anemia Routine medical exam Routine general medical examination at a health care facility Special screening for malignant neoplasm of prostate Femoral vein phlebitis (CMS/HCC) Phlebitis and thrombophlebitis of femoral vein (deep) (superficial) documented in this encounter Care Teams Bowling Floor Manager Relationship Specialty Start Date End Date Srinivasa Anderson MD [address] [address] PCP - General 07/18/04 documented as of this encounter
--- OUTSIDE RECORDS SUMMARY | 2024-11-02 09:17 | XMS_ITS | Encounter Summary ---
Author Organization [facility] Address [address] [place] [facility] [address] Care Team Providers Care Cloth Covered Helmet Puller Name Role Phone Srinivasa Anderson MD Primary Care Provider [phone] Encounter Details Date Type Department Care Team (Late st Contact Info) Description 02/17/2001 Outpatient [facility] [place] [address] Yfn Hahn MD [address] [place] [address] ACUTE BRONCHITIS (Primary Dx); THROMBOPHLEBITIS LEG NOS Social History Tobacco Use Types Packs/Day Years Used Date Smoking Tobacco: Never Assessed Sex and Gender Information Value Date Recorded Sex Assigned at Not on file 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
--- OUTSIDE RECORDS SUMMARY | 2024-11-02 09:17 | XMS_ITS | Encounter Summary ---
Author Organization [facility] Address [address] [place] [address] Care Team Providers Care Cyber Security Administrator Name Role Phone Srinivasa Anderson MD Primary Care Provider [phone] Encounter Details Date Type Department Care Team (Latest Contact Info) Description 02/15/2004 Outpatient Historical [facility] Imaging Services-Nilay Robles [place] [address] [place] [address] Mark Lux MD [address] [place] [address] HEMATURIA (Primary Dx) Social History Tobacco Use Types Packs/Day Years Used Date Smoking Tobacco: Never Assessed Sex and Gender Information Value Date Recorded Sex Assigned at Not on file Legal Sex Male 3:08 AM SURG RN Gender Identity Not on file Sexual Orientation Not on file documented as of this encounter Plan of Treatment Not on file documented as of this encounter Visit Diagnoses Diagnosis Hematuria- Primary documented in this encounter Care Teams Cyber Security Administrator Relationship Specialty Start Date End Date Srinivasa Anderson MD [address] [place] [address] PCP - General 07/18/04 documented as of this encounter
--- OUTSIDE RECORDS SUMMARY | 2024-11-02 09:17 | XMS_ITS | Encounter Summary ---
Author Organization [facility] Address [address] [facility] [place] [address] Care Team Providers Care Wet Process Technician Name Role Phone Srinivasa Anderson MD Primary Care Provider [phone] Encounter Details Date Type Department Care Team (Latest Contact Info) Description 10/14/2001 Outpatient Historical [facility] Imaging Services-Nilay Robles [place] [address] [place] [address] Mark Lux MD [address] [place] [address] HYPERTENSION NOS (Primary Dx) Social History Tobacco Use Types Packs/Day Years Used Date Smoking Tobacco: Never Assessed Sex and Gender Information Value Date Recorded Sex Assigned at Not on file 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
--- OUTSIDE RECORDS SUMMARY | 2024-11-02 09:17 | XMS_ITS | Encounter Summary ---
Author Organization [facility] Address [address] [place] [address] Care Team Providers Care Home Organizer Name Role Phone Srinivasa Anderson MD Primary Care Provider Encounter Details Date Type Department Care Team (Latest Contact Info) Description 10/26/2004 Outpatient Historical [facility] Dermatology- [facility] [address] [place] [phone] Zoltan Mahoney MD NO ADDRESS ON FILE Malig amado skin arm (Primary Dx); ACTINIC KERATOSIS; Inflamed seborr keratos; SEBORRHEIC KERATOSIS NOS Social History Tobacco Use Types Packs/Day Years Used Date Smoking Tobacco: Never Assessed Sex and Gender Information Value Date Recorded Sex Assigned at Not on file 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 Gender Identity Not on file Sexual Orientation Not on file documented as of this encounter Plan of Treatment Not on file documented as of this encounter Visit Diagnoses Diagnosis Malig amado skin arm- Primary 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
--- OUTSIDE RECORDS SUMMARY | 2024-11-02 09:17 | XMS_ITS | Encounter Summary ---
Author Organization [facility] Address [address] [place] [address] Care Team Providers Care Laborer Airport Maintenance Name Role Phone Srinivasa Anderson MD Primary Care Provider Encounter Details Date Type Department Care Team (Latest Contact Info) Description 04/25/2004 Outpatient Historical [facility] [place] [place] [address] Srinivasa Anderson MD [address] [place] [address] PULM EMBOLISM/INFARCT NOS (CMS/HCC) (Primary Dx); HYPERTENSION NOS Social History Tobacco Use Types Packs/Day Years Used Date Smoking Tobacco: Never Assessed Sex and Gender Information Value Date Recorded Sex Assigned at Not on file 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
--- OUTSIDE RECORDS SUMMARY | 2024-11-02 09:17 | XMS_ITS | Encounter Summary ---
Author Organization [facility] Address [address] [facility] [place] [address] Care Team Providers Care Insurance Claims Examiner Name Role Phone Srinivasa Anderson MD Primary Care Provider [phone] Encounter Details Date Type Department Care Team (Latest Contact Info) Description 10/24/2001 Outpatient Historical [facility] [place] [place] [address] Mark Lux MD [address] [place] [address] HYPERTENSION NOS (Primary Dx); Pure hypercholesterolem; OSTEOARTHROS NOS-UNSPEC Social History Tobacco Use Types Packs/Day Years Used Date Smoking Tobacco: Never Assessed Sex and Gender Information Value Date Recorded Sex Assigned at Not on file 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
--- OUTSIDE RECORDS SUMMARY | 2024-11-02 09:17 | XMS_ITS | Encounter Summary ---
Author Organization [facility] Address [address] [place] [address] Care Team Providers Care Protection Engineer Name Role Phone Srinivasa Anderson MD Primary Care Provider [phone] Encounter Details Date Type Department Care Team (Latest Contact Info) Description 11/10/2003 Outpatient Historical [facility] [place] [place] [address] Mark Lux MD [address] [place] [address] HYPERTENSION NOS (Primary Dx); Pure hypercholesterolem; B12 DEFIC ANEMIA NEC Social History Tobacco Use Types Packs/Day Years Used Date Smoking Tobacco: Never Assessed Sex and Gender Information Value Date Recorded Sex Assigned at Not on file 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
--- OUTSIDE RECORDS SUMMARY | 2024-11-02 09:17 | XMS_ITS | Encounter Summary ---
Author Organization [facility] Address [address] [place] [address] Care Team Providers Care Electronic Technician Name Role Phone Srinivasa Anderson MD Primary Care Provider [phone] Encounter Details Date Type Department Care Team (Latest Contact Info) Description 02/17/2004 Outpatient Historical [facility] [address] [place] [address] Mark Lux MD [address] [place] [address] ABNORMAL FINDINGS- ORGANS (Primary Dx) Social History Tobacco Use Types Packs/Day Years Used Date Smoking Tobacco: Never Assessed Sex and Gender Information Value Date Recorded Sex Assigned at Not on file 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
--- OUTSIDE RECORDS SUMMARY | 2024-11-02 09:17 | XMS_ITS | Encounter Summary ---
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 Social History Tobacco Use Types Packs/Day Years Used Date Smoking Tobacco: Never Assessed Sex and Gender Information Value Date Recorded Sex Assigned at Not on file 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
--- OUTSIDE RECORDS SUMMARY | 2024-11-02 09:17 | XMS_ITS | Encounter Summary ---
Author Organization [facility] Address [address] [facility] [place] [place] [address] Care Team Providers Care Energy Risk Management Analyst Name Role Phone Srinivasa Anderson MD Primary Care Provider [phone] Encounter Details Date Type Department Care Team (Late st Contact Info) Description 12/30/2000 Outpatient Historical [facility] Yfn Hahn MD [address] [place], [place] [id number] Other pulmonary embolism and infarction (CMS/HCC) (Primary Dx) Social History Tobacco Use Types Packs/Day Years Used Date Smoking Tobacco: Never Assessed Sex and Gender Information Value Date Recorded Sex Assigned at Not on file 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
--- OUTSIDE RECORDS SUMMARY | 2024-11-02 09:17 | XMS_ITS | Encounter Summary ---
Author Organization [facility] Address [address] [place] [address] Care Team Providers Care Factory Superintendent Name Role Phone Srinivasa Anderson MD Primary Care Provider [phone] Encounter Details Date Type Department Care Team (Latest Contact Info) Description 03/04/2003 Outpatient Historical [facility] [place] [place] [address] Mark Lux MD [address] [place] [address] ABDOMINAL PAIN UNSPEC SITE (Primary Dx); LUMBAGO; ANXIETY STATE NOS Social History Tobacco Use Types Packs/Day Years Used Date Smoking Tobacco: Never Assessed Sex and Gender Information Value Date Recorded Sex Assigned at Not on file 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
--- OUTSIDE RECORDS SUMMARY | 2024-11-02 09:17 | XMS_ITS | Encounter Summary ---
Author Organization [facility] Address [address] [address] Care Team Providers Care Flight Technician Name Role Phone Srinivasa Anderson MD Primary Care Provider [phone] Encounter Details Date Type Department Care Team (Latest Contact Info) Description 08/19/2001 Outpatient Historical [facility] Dermatology- [facility] [address] [place] [phone] Zoltan Mahoney MD NO ADDRESS ON FILE Malig amado scalp/skin neck (Primary Dx); SEBORRHEIC KERATOSIS NOS Social History Tobacco Use Types Packs/Day Years Used Date Smoking Tobacco: Never Assessed Sex and Gender Information Value Date Recorded Sex Assigned at Not on file 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
--- OUTSIDE RECORDS SUMMARY | 2024-11-02 09:17 | XMS_ITS | Encounter Summary ---
Author Organization [facility] Address [address] [facility] [address] Care Team Providers Care Etl Consultant Name Role Phone Srinivasa Anderson MD Primary Care Provider [phone] Encounter Details Date Type Department Care Team (Latest Contact Info) Description 11/30/2003 Outpatient Historical [facility] Dermatology- [facility] [address] [place] [address] Zoltan Mahoney MD NO ADDRESS ON FILE ACTINIC KERATOSIS (Primary Dx); Inflamed seborr keratos; SEBORRHEIC KERATOSIS NOS Social History Tobacco Use Types Packs/Day Years Used Date Smoking Tobacco: Never Assessed Sex and Gender Information Value Date Recorded Sex Assigned at Not on file 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
--- OUTSIDE RECORDS SUMMARY | 2024-11-02 09:17 | XMS_ITS | Clinical Summary ---
Author Organization [facility] Address [address] [place] [address] Phone Care Team Providers Care Foxer Name Role Phone Srinivasa Anderson MD Primary Care Provider [phone] Allergies No known active allergies Medications Syringe with Needle, Disp, (BD Luer-Adi Syringe) 3 mL 25 x 5/8 Syringe Inject 1ml every 30 days 50 Each 0 0 Active acetaminophen (TYLENOL) 500 mg tablet Take 500 mg by mouth every 6 hours as needed. 0 Active blood sugar diagnostic (Contour Next Test Strips) Strip CHECK BLOOD SUGAR 2 TIMES DAILY DIRECTED DXE11.9 100 Strip 12 1 Active cyanocobalamin (VITAMIN B-12) 1,000 mcg/mL Solution INJECT 1 ML BY IM EVERY 30 DAYS. 10 mL 11 1 Active lancets (TRUEplus Lancets) 28 gauge TESTING GLUCOSE TWICE DAILY 100 Each 12 8 Active carboxymethylcell ulose sodium (REFRESH PLUS) 0.5 % solution Administer 2 Drops in left eye every 4 hours as needed for Discomfort. 1 Each 3 Active fluticasone propionate (FLONASE) 50 mcg/spray [place], Suspension nasal inhaler 1 SPRAY EACH NOSTRIL TWICE A DAY 2 Active traMADoL (ULTRAM) 50 mg tablet Take 50 mg by mouth every 6 hours as needed for Pain. Active polyethylene glycol 3350 (MIRALAX) 17 gram/dose PowderIndications :Constipation, unspecified constipation type Take 1 Scoop (17 Grams) by mouth 2 times daily. Dissolve in 8 ounces of fluid and drink entire liquid 510 Gram 1 4 Active losartan (COZAAR) 100 mg tablet Take 1 Tablet (100 mg) by mouth daily. 90 Tablet 3 4 Active amLODIPine (NORVASC) 10 mg tablet Take 1 Tablet (10 mg) by mouth daily. 90 Tablet 3 4 Active predniSONE (DELTASONE) 5 mg tablet TAKE 1 TABLET BY MOUTH DAILY 90 Tablet 1 5 Active tamsulosin (FLOMAX) 0.4 mg capsule TAKE ONE CAPSULE BY MOUTH DAILY 90 Capsule 1 5 Active traZODone (DESYREL) 100 mg tablet TAKE ONE TABLET DAILY AT BEDTIME 30 Tablet 5 5 Active levoFLOXacin (LEVAQUIN) 250 mg tablet Take 1 Tablet by mouth daily. 5 Active Breo Ellipta 100-25 mcg/dose Disk with Device INHALE 1 PUFF BY MOUTH DAILY for 30 days 5 Active amoxicillin-clavu lanate (AUGMENTIN) 875-125 mg tablet Take 1 Tablet by mouth 2 times daily. 5 Active Active Problems Problem Noted Date Diagnosed [...] STENOSIS WRITTEN ON 10/31/2022 11:36 AM BY NUBIA EWING, MARIA C 10/30/22: 34 mm Medtronic EvolutFx porcine prosthesis [...] history of unspecified circulatory dise ase Hyperlipidemia Resolved Problems Problem Noted Date Diagnosed Date Resolved Date Moderate protein-calorie malnutrition 01/29/2023 02/01/2023 Cirrhosis of liver with ascites 01/25/2023 02/01/2023 Thrombocytopenia 01/21/2023 11/19/2023 Atrial fibrillation with RVR 06/02/2022 06/06/2022 Traumatic hemorrhage of cere helio with loss of consciousness of 30 minutes or less 06/02/2022 073 Chronic anticoagulation 03/20/2016 07/0 05/2022 Nummular eczema 08/18/2009 06/30/2010 Intradermal nevus 11/30/2008 06/30/2010 Actinic keratosis 10/16/2007 06/30/2010 Inflamed seborrheic keratosis 10/16/2007 06/30/2010 Other seborrheic keratosis 10/16/2007 0 06/30/2010 Other abnormal blood chemistry 12/23/2013 Anxiety state, unspecified 0 04/30/2018 Encounters Date Type Department Care Team Description 10/30/2024 Telephone [facility] [place] [phone] [place] [address] Srinivasa Anderson MD Needs Orders Written 10/27/2024 External Device Data [facility] ABSTRACTION Provider, Abstract 10/12/2024 Orders Only [facility] [address] [place] [address] Provider, Abstract 09/29/2024 External Device Data [place] ABSTRACTION Provider, Abstract 09/15/2024 Orders Only [facility] [address] [place] [address] Provider, Abstract 09/10/2024 External Device Data [facility] [place]STRACTION Provider, Abstract 09/07/2024 1:00 PM CDT Video Visit [facility] [place] [phone] [place] [address] Srinivasa Anderson MD Rheumatoid arthritis, involving unspecified site, unspecified whether rheumatoid factor present (CMS/HCC) (Primary Dx); Persistent atrial fibrillation ([facility]); Type 2 diabetes mellitus without complication, without long-term current use of insulin ([facility]); Pulmonary emphysema, unspecified emphysema type ([facility]); Lupus erythematosus overlap syndrome ([facility]); S/P placement of leadless cardiac pacemaker; Acute on chronic combined systolic and diastolic congestive heart failure ([facility]); Type 2 diabetes mellitus with diabetic polyneuropathy, without long-term current use of insulin ([facility]); Stage 3a chronic kidney disease ([facility]) 09/07/2024 Telephone [facility] Fannin [phone] [place] [address] Srinivasa Anderson MD Primary Care Outreach 09/07/2024 Telephone [facility] [place] [phone] [place] [phone] Srinivasa Anderson MD Appointment Notification 08/25/2024 External Device Data ST[place] ABSTRACTION Provider, Abstract 08/20/2024 1:00 PM CDT Office Visit [facility] [address] [place] [address] Nubia Ewing FNP S/P TAVR (transcatheter aortic valve replacement) (Primary Dx) 08/20/2024 Telephone [facility] [address] [place] [address] Master Brown, RN Information 08/19/2024 Telephone [facility] [address] [place] [phone] Master Brown, RN Follow Up 08/10/2024 Refill [facility]annin [place] [phone] [place] [phone] Srinivasa Anderson MD 08/04/2024 Results Follow-Up [facility] Travis [phone] [place] [address] Srinivasa Anderson MD HEMOGLOBIN A1C, CBC WITH DIFFERENTIAL, COMPREHENSIVE METABOLIC PANEL, LIPID PANEL from Last 3 Months Immunizations Immunization Administration Dates Next Due (ADACEL/BOOSTRIX)(10 YR UP) TDAP VACCINE, 0.5ML, IM 06/02/2022,05/25/2008 (PNEUMOVAX 23)(50 YRS UP) PN EUMOCOCCAL POLYSACCHARIDE (PPV23) 0.5 ML, IM 06/23/2009,11/06/2002 (PREVNAR 13)(6 WKS UP) PNEUM OCOCCAL CONJUGATE (PCV13) 0.5 ML, IM 01/12/2020,06/03/2014 INFLUENZA VACCINE HIGH DOSE QUADRIVALENT 65 YR UP PF IM 03/25/2023,02/08/2022,01/21/2019,01/24,12/31/2016,01/26/2016,02/01/2015 INFLUENZA VACCINE HIGH DOSE TRIVALENT SPLIT VIRUS, (65 YR UP), 0.5ML (PF), IM 02/03/2024 INFLUENZA VACCINE QUADRIVALE NT ADJ 65 YR UP PF IM 02/09/2021 Influenza Seasonal Unspecifi ed Formulation IM 02/20/2007,03/26/2006,02/14/2005,02/07,02/11/2003,02/24/2001 Influenza Vaccine High Dose 65+ Yrs IM 0 01/12/2020,01/21/2019,01/24/2018,12/31,01/26/2016,02/01/2015,01/28/2014 ,01/16/2011 Influenza Vaccine Split 3+ Yrs IM 02/24/2009, Influenza Vaccine Split 3+ Yrs PF IM 01/22/2013, 01/31/2012,01/18/2010 PREVNAR (PCV13) pneumococcal 13-valent conjugate Vaccine 01/12/2020,06/03/2014 Zoster Vaccine Live SQ Patie nt Supplied 12/20/2011 Family History Medical History Relation Name Comments No Known Problems Daughter Cancer Father small intestine Diabetes Mother Heart Disease Mother Macular Degen Mother No Known Problems Son Breast Cancer Neg Hx Relation Name Status Comments Daughter Alive Father Mother Son Alive Social History Tobacco Use Types Packs/Day Years Used Date Smoking Tobacco: Never Smokeless Tobacco: Former Tobacco Cessation:Counseling Given: Not Answered Alcohol Use Standard Drinks/Week Comments Yes 0 [...] on file 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 Gender Identity Not on file Sexual Orientation Not on file Last Filed Vital Signs Vital Sign Reading Time Taken Comments Blood Pressure 136/74 08/20/2024 12:51 PM CDT Pulse 64 08/20/2024 12:51 PM CDT Temperature 36.3 C (97.3 F) 02/03/2024 11:27 AM CDT Respiratory Rate 16 02/03/2024 11:27 AM CDT Oxygen Saturation 99% 02/03/2024 11:27 AM CDT Inhaled Oxygen Concentration - - Weight 78 kg (172 lb) 09/07/2024 12:07 PM CDT Height 193 cm (6' 4 ) 09/07/2024 12:07 PM CDT Body Mass Index 20.94 09/07/2024 12:07 PM CDT Plan of Treatment Upcoming Encounters Date Type Department Care Team (Late st Contact Info) Description 11/20/2024 9:20 AM CDT Office Visit [facility] [address] [place] [address] Giana Fowler FNP [address] [place] [address] 12/25/2024 1:30 PM CDT Office Visit [facility] Jeffrey Robles [phone] [place] [phone] Srinivasa Anderson MD [address] [place] [address] 03/04/2025 11:00 AM 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 PRODUCTION OPERATOR Office Visit [facility] [address] [place] [address] Kodak Samuel MD [address] [place] [address] 03/11/2025 1:00 PM 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 PRODUCTION OPERATOR Office Visit [facility] [address] [place] [address] Mariela Stone MD [address] [place] [address] Kay Bennett NP NO ADDRESS ON FILE Health Maintenance Due Date Last Done Comments ZOSTER VACCINE (2 of 3) 02/14/2012 12/20/2011 RSV VACCINE (60+ or ) (1 - 1-dose 75+ series) 2012 DIABETES ANNUAL FOOT EXAM 03/19/2018 03/19/2017, 09/2015 DIABETES MICROALBUMIN ANNUAL SCREEN 11/08/2020 11/09/2019, 12/19/2018, 08/20/2018, Additional history exists DIABETES ANNUAL RETINAL EXAM 07/17/2023, 05/01/2021, 09/03/2019, Additional history exists COVID-19 Vaccine (3 2023-2 5 season) 2023 11/08/2020, 07/15/2020 Traditional Medicare (ACO) A nnual Wellness Visit 06/13/2024 06/12/2023 INFLUENZA VACCINE (#1) 2024 , 03/25/2023, 02/08/2022, Additional history exists DIABETES HBA1C Q 6 MONTHS 02/02/20252024, 12/18/2023, 11/28/2022, Additional history exists DIABETES: A1C (Auto Order) 08/03/202508/03, 12/18/2023, 11/28/2022, Additional history exists LDL CHOLESTEROL ANNUAL 08/03/2025 , 11/09/2019, 10/09/2018, Additional history exists COLORECTAL SCREENING 12/01/2027 11/30/2022, 11/30/2022, 08/12/2009 DTAP/TDAP/TD VACCINES (3 - T d or Tdap) 06/02/2032 06/02/2022, 05/25/2008 PNEUMOCOCCAL VACCINE 50+ YEARS Completed 0 01/12/2020, 01/12/2020, 06/03/2014, Additional history exists Medical Devices Implanted Type Area Footwear Machinery Instructor Device Identifier Shelf Expiration Date Model / Serial / Lot Dev Naomi Closure 35mm Watchman Flx [id number] - [id number] Implanted:Qty : 1 on 08/13/2022 at [facility] Cardiovascular Device N/A: Heart [employer] MARIE 10/25/2023 [id number] / [id number] / [id number] Mitraclip G4 Dlvry Sys Ntw No Chrg [id number] - [id number] Implanted:Qty : 1 on 02/18/2023 at [facility] Cardiovascular Device Right: Heart [employer] 08/22/2023 [id number] / [id number] / [id number] Closure Perclose Prostyle Sut Mediate 68439-99 - [id number] Implanted:Qty : 1 on 08/13/2022 by Jaden Vital MD at [facility] Closure Device Right: Groin [employer]- VASC DEVICE 04/21/2024 [id number] / / [id number] Manta Vasc Closure 18fr 211 - [id number] Implanted:Qty : 1 on 10/30/2022 at [facility] Closure Device Right: Groin [employer]LE[employer] INC 04/05/2023 [id number] / / [id number] Dev Sealangio Vip 8fr [id number] - [id number] Implanted:Qty : 1 on 10/30/2022 at [facility] Closure Device Left: Groin [employer] 11/19/2022 [id number] / / [id number] Closure Perclose Prostyle Sut Mediate 08492-64 - [id number] Implanted:Qty : 1 on 02/18/2023 at [facility] Closure Device Right: Groin [employer]- VASC DEVICE 10/19/2024 23180-43 / / [id number] Closure Perclose Prostyle Sut Mediate 09651-75 - [id number] Implanted:Qty : 1 on 02/18/2023 at [facility] Closure Device Right: Groin [employer]- VASC DEVICE 10/19/2024 54235-12 / / [id number] Lens Io Tecnis 1pc 22.0 [id number] - [id number] Implanted:Qty : 1 on 08/23/2016 by Dominic Peralta MD Eye Left: Eye [employer] 10/20/2019 [id number] 20 / [id number] / Lens Io Tecnis 1pc 22.5 [id number] - [id number] Implanted:Qty : 1 on 09/06/2016 by Dominic Peralta MD Eye Right: Eye [employer] 12/19/2019 [id number] 25 / [id number] / Mesh Plug Perfix Xlg [id number] - [id number] Implanted:Qty : 1 on 08/13/2023 by Franci Kaplan Jr., MD at [facility] Mesh Left: Abdomen BARD DAVOL [id number] 01/18/2028 [id number] / / [id number] Pacemaker Micra Vr 23fr 105cm Transcath Pacing Sys [id number] - [id number] Implanted:Qty : 1 on 10/30/2022 by Mariela Stone MD at [facility] Pacemaker Heart [employer] 01/04/2024 [id number] / [id number] / Vlv Aort Evolut Fx Tavr 34mm Evolutfx-34 - [id number] Implanted:Qty : 1 on 10/30/2022 at [facility] Valve N/A: Heart [employer]- HEART VALVE 06/07/2024 EVOLUTFX -34 / [id number] / Dlvry Sys Evolut Fx 34mm [id number] - S\E\240d-Evol utfx-34 Implanted:Qty : 1 on 10/30/2022 at [facility] Valve N/A: Heart [employer]- HEART VALVE 02/02/2024 D-EVOLUT FX-34 / \E\240D- EVOLUTFX -34 / [id number] Leadless Ppm Procedures Procedure Name Priority Date/Time Associated Diagnosis Comments COMPREHENSIVE METABOLIC PANEL Routine 10/05/2024 9:58 AM CDT COMPREHENSIVE METABOLIC PANEL Routine 09/02/2024 9:11 AM CDT LIPID PANEL Routine 08/03/2024 11:38 AM CDT Mixed hyperlipidemia COMPREHENSIVE METABOLIC PANEL Routine 08/03/2024 11:38 AM CDT Essential hypertension, benign CBC WITH DIFFERENTIAL Routine 08/03/2024 11:38 AM CDT Essential hypertension, benign HEMOGLOBIN A1C Routine 08/03/2024 11:38 AM CDT Type 2 diabetes mellitus without complication, without long-term current use of insulin ([facility]) COLONOSCOPY REPORT 11/30/2022 11 :16 AM CDT HM DIABETES EYE EXAM Routine 07/16/2022 10:57 AM CDT MICROALBUMIN/CREATINI NE RATIO, RANDOM UR Routine 11/09/2019 9:43 AM CDT from Last 3 Months or Most Recently Relevant to Health Maintenance Results * COMPREHENSIVE METABOLIC PANEL (10/05/2024 9:58 AM CDT) Only the most recent of3 resultswithin the time period is included. Blood us Abstract Provider CHEMISTRY ORDERABLES Final Res ult * (ABNORMAL) CBC WITH DIFFERENTIAL (08/03/2024 11:38 AM CDT) WBC 5.0 3.8 - 10.8 Thousand/u L [facility] RBC 3.88(L) 4.20 - 5.80 Million/uL [facility] HEMOGLOBIN 10.6(L) 13.2 - 17.1 g/dL [facility] HEMATOCRIT 34.6(L) 38.5 - 50.0 % [facility] MCV 89.2 80.0 - 100.0 fL [facility] MCH 27.3 27.0 - 33.0 pg [facility] MCHC 30.6(L) 32.0 - 36.0 g/dL [facility] Comment: For adults, a slight decrease in the calculated MCHC value (in the range of 30 to 32 g/dL) is most likely not clinically significant; however, it should be interpreted with caution in correlation with other red cell parameters and the patient's clinical condition. RDW 15.2(H) 11.0 - 15.0 % [facility] PLATELETS 211 140 - 400 Thousand/u L [facility] MPV 10.9 7.5 - 12.5 fL [facility] NEUTROPHIL ABSOLUTE 3,170 1,500 - 7,800 cells/uL [facility] LYMPHOCYTE ABSOLUTE 1,350 850 - 3,900 cells/uL [facility] MONOCYTE ABSOLUTE 450 200 - 950 cells/uL [facility] EOSINOPHIL ABSOLUTE 10(L) 15 - 500 cells/uL [facility] BASOPHILS ABSOLUTE 20 0 - 200 cells/uL [facility] NEUTROPHIL 63.4 % [facility] LYMPHOCYTES 27.0 % [facility] MONOCYTE 9.0 % [facility] EOSINOPHILS 0.2 % [facility] BASOPHILS 0.4 % [facility] Comment: FASTING:YES FASTING: YES Test Performed at: [facility] [address] [place] [address] Александр Oviedo Blood 08/03/2024 11:3 8 AM CDT 08/03/2024 11:38 AM CDT us Srinivasa Anderson MD HEMATOLOGY ORDERABLES Final Resu lt Performing Organization Address City/[facility]/ZIP Co de Phone Number [facility] [phone] [facility] [address] [place] [address] * (ABNORMAL) HEMOGLOBIN A1C (08/03/2024 11:38 AM CDT) HEMOGLOBIN A1C 6.2(H) <5.7 % [facility] Comment: For someone without known diabetes, a hemoglobin A1c value between 5.7% and 6.4% is consistent with prediabetes and should be confirmed with a follow-up test. For someone with known diabetes, a value <7% indicates that their diabetes is well controlled. A1c targets should be individualized based on duration of diabetes, age, comorbid conditions, and other considerations. This assay result is consistent with an increased risk of diabetes. Currently, no consensus exists regarding use of hemoglobin A1c for diagnosis of diabetes for children. ESTIMATED AVERAGE GLUCOSE (MG/DL) 131 mg/dL [facility] ESTIMATED AVERAGE GLUCOSE (MMOL/L) 7.3 mmol/L [facility] Comment: FASTING:YES FASTING: YES Test Performed at: [facility] [address] [place] [address] Arminda Velasco MD Blood 08/03/2024 11:3 8 AM CDT 08/03/2024 11:38 AM CDT us Srinivasa Anderson MD CHEMISTRY ORDERABLES Final Resul t [facility] [phone] [facility] [address] [place] [address] * (ABNORMAL) LIPID PANEL (08/03/2024 11:38 AM CDT) CHOLESTEROL 133 <200 mg/dL [facility] HDL 36(L) > OR = 40 mg/dL [facility] RR TRIGLYCERIDE 71 <150 mg/dL [facility] RR LDL CALCULATED 82 mg/dL (calc) [facility] Comment: Reference range: <100 Desirable range <100 mg/dL for primary prevention; <70 mg/dL for patients with CHD or diabetic patients with > or = 2 CHD risk factors. LDL-C is now calculated using the Celine calculation, which is a validated novel method providing better accuracy than the Friedewald equation in the estimation of LDL-C. Wilber SS et al. MAGDA. 2013;310(19): 0854-3582 (http://education.TribeHR/faq/NEE627) CHOL/HDL RATIO 3.7 <5.0 (calc) [facility] NON-HDL CHOLESTEROL 97 <130 mg/dL (calc) [facility] Comment: For patients with diabetes plus 1 major ASCVD risk factor, treating to a non-HDL-C goal of <100 mg/dL (LDL-C of <70 mg/dL) is considered a therapeutic option. Test Performed at: [facility] [address] [place] [address] Александр Oviedo Blood 08/03/2024 11:3 8 AM CDT 08/03/2024 11:38 AM CDT Srinivasa Anderson MD CHEMISTRY ORDERABLES Final Resul t [facility] [phone] [facility] [address] [place] [address] * COLONOSCOPY REPORT (11/30/2022 11:16 AM CDT) Narrative Procedure Note Herman Schmitz MD - 11/30/2022 11:16 AM CDT [facility] GI Patient Name: Franci Hernandez Procedure Date: 11/30/2022 Date of : 1935 Admit Type: Outpatient Age: 87 Attending MD: Herman Schmitz , , Procedure: Colonoscopy Indications: Iron deficiency anemia Providers: Herman Schmitz Referring MD: Medicines: Monitored Anesthesia Care Complications: No immediate complications. Procedure: After I obtained informed consent, the scope was passed under direct vision. Throughout the procedure, the patient's blood pressure, pulse, and oxygen saturations were monitored continuously. The Colonoscope was introduced through the anus and advanced to the terminal ileum, with identification of the appendiceal orifice and IC valve. The colonoscopy was performed without difficulty. The patient tolerated the procedure well. The quality of the bowel preparation was evaluated using the BBPS ([place] Bowel Preparation Scale) with scores of: Right Colon = 2 (minor amount of residual staining, small fragments of stool and/or opaque liquid, but mucosa seen well), Transverse Colon = 2 (minor amount of residual staining, small fragments of stool and/or opaque liquid, but mucosa seen well) and Left Colon = 2 (minor amount of residual staining, small fragments of stool and/or opaque liquid, but mucosa seen well). The total BBPS score equals 6. The quality of the bowel preparation was fair. Estimated Blood Loss: Estimated blood loss was minimal. Findings: Many small-mouthed diverticula were found in the sigmoid colon. Internal hemorrhoids were found during retroflexion. The hemorrhoids were moderate. Six sessile polyps were found in the transverse colon, ascending colon and cecum. The polyps were 3 to 20 mm in size. These polyps were removed with a cold snare. Resection and retrieval were complete. Four sessile polyps were found in the descending colon. The polyps were 3 to 5 mm in size. These polyps were removed with a cold snare. Resection and retrieval were complete. The exam was otherwise without abnormality on direct and retroflexion views. Impression: - Preparation of the colon was fair. - Diverticulosis in the sigmoid colon. - Internal hemorrhoids. - Six 3 to 20 mm polyps in the transverse colon, in the ascending colon and in the cecum, removed with a cold snare. Resected and retrieved. - Four 3 to 5 mm polyps in the descending colon, removed with a cold snare. Resected and retrieved. - The examination was otherwise normal on direct and retroflexion views. Recommendation: - Await pathology results. - Pending path from the upper will consider outpatient capsule study. - Ok for diet and discharge from a GI standpoint, will sign off, call back if issues arise. Herman Schmitz, 11/30/2022 11:16:37 AM Number of Addenda: 0 Note Initiated On: 11/30/2022 10:45 AM Scope Withdrawal Time 0 hours 18 minutes 26 seconds Scope In: 10:47:43 AM Scope Out: 11:13:34 AM [address] [place], [place] Herman Schmitz MD GI PROCEDURE ORDERABLES Final Result * DIABETES EYE EXAM (07/16/2022 10:57 AM CDT) Abstract Provider HEALTH MAINTENANCE Final Resul t * (ABNORMAL) MICROALBUMIN/CREATININE RATIO, RANDOM UR (11/09/2019 9:43 AM CDT) MICROALBUMIN, URINE 5.3 No Reference Range mg/dL 11/09/2019 9:33 PM CDT [facility] CREATININE, URINE 139.7 40.0 - 278.0 mg/dL 11/09/2019 9:33 PM CDT [facility] Comment:Reference Range vari es with fluid intake and diet. MICROALBUMIN/ CREAT RATIO, UR 37.9(H) <17.0 mg/g 11/09/2019 9:33 PM CDT [facility] Urine URINE SPECIMEN OBTAINED BY CLEAN CATCH PROCEDURE / Unknown Collection / Unknown 11/09/2019 9:43 AM CDT 11/09/2019 8:19 PM CDT Narrative [facility] - 11/09/2019 9:33 PM CDT Condition Microalbumin/Creat ratio Normal Males <17 Normal Females <25 Microalbuminuria Males 17-299 Microalbuminuria Females 25-299 Overt proteinuria >=300 us Srinivasa Anderson MD URINE ORDERABLES Final Result [facility] IBARRA# [id number] [place] [place] [address] from Last 3 Months or Most Recently Relevant to Health Maintenance Insurance [address] [place] [id number] [facility] [address] [place] [address] MEDICARE PART A AND B * Guarantor: FRANCI HERNANDEZ Account Type Relation to Patient Date of Phone Billing Address Personal/Family [address] [place] [address] RX ALLWIN DATA Medicare Part B RX DANIELS PLANS (INTERNAL) [facility] RX EXPRESS SCRIPTS Medicare Part D Advance Directives For more information, please contact: [phone] * Full Code (Latest Code Status on File) Date Activated Date Inactivated Comments 08/13/2023 5:27 AM 08/13/2023 4:13 PM * Full Code Date Activated Date Inactivated Comments 07/02/2023 1:35 PM 07/02/2023 11:23 PM * Full Code Date Activated Date Inactivated Comments 07/02/2023 12:21 PM 07/02/2023 1:35 PM * Full Code Date Activated Date Inactivated Comments 02/18/2023 6:09 AM 02/19/2023 7:39 PM * Full Code Date Activated Date Inactivated Comments 01/21/2023 5:53 PM 01/29/2023 5:47 PM Care Teams Foxer Relationship Specialty Start Date End Date Srinivasa Anderson MD [address] [address] PCP - General Family Practice 05/18/24
--- OUTSIDE RECORDS SUMMARY | 2024-11-02 09:17 | XMS_ITS | Encounter Summary ---
Author Organization [facility] Address [address] [facility] [place] [address] Care Team Providers Care Scenery Builder Name Role Phone Srinivasa Anderson MD Primary Care Provider Encounter Details Date Type Department Care Team (Latest Contact Info) Description 03/25/2003 Outpatient Historical [facility]- [facility] [place] [address] [place] [phone] Zoltan Mahoney MD NO ADDRESS ON FILE ACTINIC KERATOSIS (Primary Dx); Inflamed seborr keratos; SEBORRHEIC KERATOSIS NOS Social History Tobacco Use Types Packs/Day Years Used Date Smoking Tobacco: Never Assessed Sex and Gender Information Value Date Recorded Sex Assigned at Not on file 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
--- OUTSIDE RECORDS SUMMARY | 2024-11-02 09:17 | XMS_ITS | Encounter Summary ---
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 (Primary Dx); Other seborrheic keratosis Social History Tobacco Use Types Packs/Day Years Used Date Smoking Tobacco: Never Assessed Sex and Gender Information Value Date Recorded Sex Assigned at Not on file 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
--- OUTSIDE RECORDS SUMMARY | 2024-11-02 09:17 | XMS_ITS | Encounter Summary ---
Author Organization [facility] Address [address] [facility] [place] [address] Care Team Providers Care Rn Teacher Name Role Phone Srinivasa Anderson MD Primary Care Provider [phone] Encounter Details Date Type Department Care Team (Latest Contact Info) Description 07/18/2004 Outpatient [facility]- [place] [address] [place] [address] Ar Stanton MD NO ADDRESS ON FILE FOLLOW-UP EXAM NOS (Primary Dx); PERS HX COLONIC POLYPS; Diverticulosis of colon; INT HEMORRHOID W/O COMPL Social History Tobacco Use Types Packs/Day Years Used Date Smoking Tobacco: Never Assessed Sex and Gender Information Value Date Recorded Sex Assigned at Not on file 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 Gender Identity Not on file Sexual Orientation Not on file documented as of this encounter Plan of Treatment Not on file documented as of this encounter Visit Diagnoses Diagnosis Unspecified follow-up examination- Primary Personal history of colonic polyps Diverticulosis of colon Diverticulosis of colon (without mention of hemorrhage) Internal hemorrhoids without mention of complication documented in this encounter Care Teams Rn Teacher Relationship Specialty Start Date End Date Srinivasa Anderson MD [address] [place] [phone] PCP - General 07/18/04 documented as of this encounter
--- OUTSIDE RECORDS SUMMARY | 2024-11-02 09:17 | XMS_ITS | Encounter Summary ---
Author Organization [facility] Address [address] [facility] [place] [address] Care Team Providers Care Cooker Meal Name Role Phone Srinivasa Anderson MD Primary Care Provider Encounter Details Date Type Department Care Team (Latest Contact Info) Description 10/03/2004 Outpatient Historical [facility] [place] [place] [address] Srinivasa Anderson MD [address] [place] [address] HYPERTENSION NOS (Primary Dx); Plantar fibromatosis; OTHER MALAISE AND FATIGUE; Toxic effect venom Social History Tobacco Use Types Packs/Day Years Used Date Smoking Tobacco: Never Assessed Sex and Gender Information Value Date Recorded Sex Assigned at Not on file Legal Sex Male 3:08 AM L D RN Gender Identity Not on file Sexual Orientation Not on file documented as of this encounter Plan of Treatment Not on file documented as of this encounter Visit Diagnoses Diagnosis Unspecified essential hypertension- Primary Plantar fibromatosis Plantar fascial fibromatosis Other malaise and fatigue Toxic effect venom Toxic effect of venom documented in this encounter Care Teams Cooker Meal Relationship Specialty Start Date End Date Srinivasa Anderson MD [address] [place] [address] PCP - General 07/18/04 documented as of this encounter
--- OUTSIDE RECORDS SUMMARY | 2024-11-02 09:18 | XMS_ITS | Encounter Summary ---
Author Organization [facility] Address [address] [place] [address] Care Team Providers Care Smooth Plater Name Role Phone Srinivasa Anderson MD Primary Care Provider [phone] Reason for Visit * Reason Onset Date Comments Question 09/13/2022 Encounter Details Date Type Department Care Team (Late st Contact Info) Description 09/13/2022 Telephone [facility] [address] [facility] [address] [place] [address] Jaden Vital MD NO ADDRESS ON FILE Question Social History Tobacco Use Types Packs/Day Years Used Date Smoking Tobacco: Never Smokeless Tobacco: Former Alcohol Use Standard Drinks/Week Comments Yes 1 (1 standard drink = 0.6 oz pur e alcohol) Sex and Gender Information Value Date Recorded Sex Assigned at Not on file Legal Sex Male 6:28 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 No / Unsure 08/17/2022 9:12 AM CDT documented as of this encounter Miscellaneous Notes * Telephone Encounter - Lesley Knapp - 09/13/2022 10:36 AM CDT Provider: Zahraa Person calling: Sultana Phone #: [phone] Relationship to patient: , PHI not signed by pt, signed by Post op watchman 08/27/22 Pt's states her is doing ok in the morning but she has been having him take 40 mg of Lasix at that time because he starts having swelling in late afternoon, SOB and is exhausted. She says he then has to prop himself up on 3 pillows to breathe at night and has swelling is in his fee. states he needs some help. -Lesley Knapp documented in this encounter Plan of Treatment Upcoming Encounters Date Type Department Care Team (Late st Contact Info) Description 11/20/2024 9:20 AM CDT Office Visit [facility] [address] [place] [address] Giana Fowelr FNP [address] [place] [address] 12/25/2024 1:30 PM CDT Office Visit [facility] Juan Luis-Nilay Robles [address] [place] [address] Srinivasa Anderson MD [address] [place] [address] 03/04/2025 11:00 AM LITHOGRAPH PRESS OPERATOR Office Visit [facility] [address] [place] [address] Kodak Samuel MD [address] [place] [address] 03/11/2025 1:00 PM LITHOGRAPH PRESS OPERATOR Office Visit [facility] [address] [place] [address] Mariela Stone MD [address] [place] [address] Kay Bennett, VERONIQUE NO ADDRESS ON FILE documented as of this encounter Visit Diagnoses Not on filedocumented in this encounter Care Teams Smooth Plater Relationship Specialty Start Date End Date Srinivasa Anderson MD [address] [phone] PCP - General Family Practice 05/18/24 documented as of this encounter
--- OUTSIDE RECORDS SUMMARY | 2024-11-02 09:18 | XMS_ITS | Encounter Summary ---
Author Organization [facility] Address [address] [place] [address] Care Team Providers Care Die Drawing Checker Name Role Phone Srinivasa Anderson MD Primary Care Provider [phone] Encounter Details Date Type Department Care Team (Late st Contact Info) Description 10/27/2024 External Device Data [facility] ABSTRACTION Provider, Abstract NO ADDRESS ON FILE Social History Tobacco [...] on file Legal Sex Male 6:28 AM TECHNICAL SERVICES ANALYST Gender Identity Not on file Sexual Orientation Not on file documented as of this encounter Plan of Treatment Upcoming Encounters Date Type Department Care Team (Late st Contact Info) Description 11/20/2024 9:20 AM CDT Office Visit [facility] [address] [facility] [address] [place] [address] Giana Fowler FNP [address] [place] [address] 12/25/2024 1:30 PM CDT Office Visit [facility] [place] [place] [address] Srinivasa Anderson MD [address] [place] [address] 03/04/2025 11:00 AM TECHNICAL SERVICES ANALYST Office Visit [facility] [address] [place] [address] Kodak Samuel MD [address] [place] [address] 03/11/2025 1:00 PM TECHNICAL SERVICES ANALYST Office Visit [facility] [address] [place] [address] Mariela Stone MD [address] [place] [address] Kay Bennett NP NO ADDRESS ON FILE documented as of this encounter Visit Diagnoses Not on filedocumented in this encounter Care Teams Die Drawing Checker Relationship Specialty Start Date End Date Srinivasa Anderson MD [address] [place] [address] PCP - General Family Practice 05/18/24 documented as of this encounter
--- OUTSIDE RECORDS SUMMARY | 2024-11-02 09:18 | XMS_ITS | Encounter Summary ---
Author Organization [facility] Address [address] [place] [address] Care Team Providers Care Accounts Payable Clerk Name Role Phone Srinivasa Anderson MD Primary Care Provider [phone] Encounter Details Date Type Department Care Team (Latest Contact Info) Description 03/27/2005 Outpatient Historical [facility] [address] 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
--- OUTSIDE RECORDS SUMMARY | 2024-11-02 09:18 | XMS_ITS | Encounter Summary ---
Author Organization [facility] Address [address] [place] [address] Care Team Providers Care Teamcenter Consultant Name Role Phone Srinivasa Anderson MD Primary Care Provider [phone] Encounter Details Date Type Department Care Team (Latest Contact Info) Description 06/13/2005 Outpatient Historical [facility] [place] [place] [address] Srinivasa Anderson MD [address] [place] [address] TESTICULAR HYPOFUNC NEC (Primary Dx) Social History Tobacco Use Types Packs/Day Years Used Date Smoking Tobacco: Never Assessed Sex and Gender Information Value Date Recorded Sex Assigned at Not on file 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
--- OUTSIDE RECORDS SUMMARY | 2024-11-02 09:18 | XMS_ITS | Encounter Summary ---
Author Organization [facility] Address [address] [facility] [place] [address] Care Team Providers Care Extrusion Supervisor Name Role Phone Srinivasa Anderson MD Primary Care Provider [phone] Encounter Details Date Type Department Care Team (Latest Contact Info) Description 05/22/2005 Outpatient Historical [facility] [place] [place] [address] Srinivasa Anderson MD [address] [place] [address] TESTICULAR HYPOFUNC NEC (Primary Dx); FOLLOW-UP EXAM NOS Social History Tobacco Use Types Packs/Day Years Used Date Smoking Tobacco: Never Assessed Sex and Gender Information Value Date Recorded Sex Assigned at Not on file 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
--- OUTSIDE RECORDS SUMMARY | 2024-11-02 09:18 | XMS_ITS | Encounter Summary ---
Author Organization [facility] Address [address] [place] [address] Care Team Providers Care Contact Center Consultant Name Role Phone Srinivasa Anderson MD Primary Care Provider [phone] Encounter Details Date Type Department Care Team (Latest Contact Info) Description 2005 Outpatient Historical [facility] [place] [place] [address] Srinivasa Anderson MD [address] [place] [address] Other Testicular Hypofunction (Primary Dx) Social History Tobacco Use Types Packs/Day Years Used Date Smoking Tobacco: Never Assessed Sex and Gender Information Value Date Recorded Sex Assigned at Not on file 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
--- OUTSIDE RECORDS SUMMARY | 2024-11-02 09:18 | XMS_ITS | Encounter Summary ---
Author Organization [facility] Address [address] [place] [address] Care Team Providers Care Truck Rental Clerk Name Role Phone Srinivasa Anderson MD Primary Care Provider [phone] Encounter Details Date Type Department Care Team (Latest Contact Info) Description 02/14/2005 Outpatient Historical [facility] [place] [place] [address] Srinivasa Anderson MD [address] [place] [address] TESTICULAR HYPOFUNC NEC (Primary Dx); Vaccine for influenza Social History Tobacco Use Types Packs/Day Years Used Date Smoking Tobacco: Never Assessed Sex and Gender Information Value Date Recorded Sex Assigned at Not on file 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
--- OUTSIDE RECORDS SUMMARY | 2024-11-02 09:18 | XMS_ITS | Encounter Summary ---
Author Organization [facility] Address [address] [place] [address] Care Team Providers Care Financial Planning Assistant Name Role Phone Srinivasa Anderson MD Primary Care Provider [phone] Encounter Details Date Type Department Care Team (Latest Contact Info) Description 02/14/2005 Outpatient Historical [facility] Services [address] [place] [address] Shelia Alberto, RN NO ADDRESS ON FILE SCREENING-CARDIOVAS C NEC (Primary Dx) Social History Tobacco Use Types Packs/Day Years Used Date Smoking Tobacco: Never Assessed Sex and Gender Information Value Date Recorded Sex Assigned at Not on file 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
--- OUTSIDE RECORDS SUMMARY | 2024-11-02 09:18 | XMS_ITS | Encounter Summary ---
Author Organization [facility] Address [address] [facility] [place] [address] Care Team Providers Care Drawing Instructor Name Role Phone Srinivasa Anderson MD Primary Care Provider [phone] Encounter Details Date Type Department Care Team (Latest Contact Info) Description 03/09/2005 Outpatient Historical [facility] [place] [place] [address] Srinivasa Anderson MD [address] [place] [address] TESTICULAR HYPOFUNC NEC (Primary Dx) Social History Tobacco Use Types Packs/Day Years Used Date Smoking Tobacco: Never Assessed Sex and Gender Information Value Date Recorded Sex Assigned at Not on file Legal Sex Male 3:08 AM DIRECT SUPPORT PROFESSIONAL Gender Identity Not on file Sexual Orientation Not on file documented as of this encounter Plan of Treatment Not on file documented as of this encounter Visit Diagnoses Diagnosis Other testicular hypofunction- Primary documented in this encounter Care Teams Drawing Instructor Relationship Specialty Start Date End Date Srinivasa Anderson MD [address] [place] [address] PCP - General 07/18/04 documented as of this encounter
--- NOTE | 2024-11-02 10:15 | W.ED.EXTPRO ---
HPI - Extremity Problem General: Chief complaint: Extremity Injury, Lower Stated complaint: fall, L leg pain Time Seen by Provider: 11/02/24 09:14 History of Present Illness: 89-year-old male fell about a week ago has been ambulating since he still has some pain in the medial aspect of his knee. No further injury no previous injury to the knee or surgery to that particular knee he has been ambulating although it has mild pain particularly later in the day first thing the morning he states it does not bother her nearly as much. No swelling in the leg. Associated symptoms: Deny chest pain, fever(s) or rash Related Data Home Medications ?Medication ?Instructions ?Recorded ?Confirmed acetaminophen 325 mg tablet 325 mg PO QID PRN Pain 01/24/24 11/02/24 (Tylenol) fluticasone propionate 50 1 spray intranasal BID PRN 01/24/24 11/02/24 mcg/actuation nasal allergies spray,suspension (Flonase Allergy Relief) losartan 100 mg tablet 100 mg PO DAILY 01/24/24 11/02/24 prednisone 5 mg tablet 5 mg PO DAILY 01/24/24 11/02/24 tamsulosin 0.4 mg capsule 0.4 mg PO DAILY 01/24/24 11/02/24 trazodone 100 mg tablet 100 mg PO DAILY PRN sleep 01/24/24 11/02/24 amlodipine 10 mg tablet 10 mg PO DAILY 03/17/24 11/02/24 guaifenesin 600 mg tablet, 600 mg PO BID 09/02/24 11/02/24 extended release 12 hr (Mucinex) fluorouracil 5 % topical cream 1 applic topical BID 11/02/24 11/02/24 Previous Rx's ?Medication ?Instructions ?Recorded blood sugar diagnostic (Contour #50 ea 05/18/22 Next Test Strips) diclofenac sodium 75 mg 75 mg PO Q12H PRN pain #20 tabs 11/02/24 tablet,delayed release Allergies Allergy/AdvReac Type Severity Reaction Status Date / Time No Known Allergies Allergy Verified 10/22/24 09:05 Review of Systems Const: Denies: fever(s) or chills Card: Denies: chest pain Resp: Denies: dyspnea GI: Denies: abdominal pain : Denies: dysuria, urinary frequency or urinary urgency Musc: Denies: neck pain or back pain Skin/Breast: Denies: rash PFSH ED PFSH: Medical History History of transcatheter aortic valve replacement (TAVR) History of colon polyps Impairment of balance Sleeplessness Left inguinal hernia Urinary hesitancy Nocturia more than twice per night Change in stool habits Abdominal discomfort Hx of basal cell carcinoma Allergic rhinitis Chronic neck pain Type 2 diabetes mellitus Diet managed Chronic anticoagulation INR goal 2-3 Hx pulmonary embolism Hypertension Surgical History History of inguinal hernia repair History of mitral valve repair History of colonoscopy History of esophagogastroduodenoscopy Hx of cataract surgery Family History Other CAD (coronary artery disease) Cancer Diabetes Heart attack Hyperlipidemia Hypertension Rheumatoid arthritis Stroke Denies family history of Lupus Chronic kidney disease (CKD) Social History Smoking and tobacco/nicotine status: never used tobacco/nicotine Quit status (tobacco/nicotine): has quit using Former quit date comment: over 40 years ago Alcohol intake: current Alcohol intake frequency: few times a week Substance/Drug Use: never Physical Exam Const: GENERAL APPEARANCE: cooperative ORIENTATION/CONSCIOUSNESS: Yes awake, Yes oriented to person, Yes oriented to place and Yes oriented to time HENMT: COMMON NORMALS: normocephalic, atraumatic and hearing grossly normal bilaterally HEAD & SCALP: normocephalic and atraumatic Resp: COMMON NORMALS: normal respiratory effort, No retractions, No use of accessory muscles and clear to auscultation bilaterally AUSCULTATION: clear to auscultation bilaterally Cardio: COMMON NORMALS: regular rate, regular rhythm and No murmurs present (Cardio) RATE: regular rate RHYTHM: regular rhythm GI: COMMON NORMALS: Soft to palpation and No hepatosplenomegaly present AUSCULTATION: Yes normoactive bowel sounds PALPATION: Yes Soft to palpation, No Tenderness to palpation present (GI), No Guarding due to palpation present (GI) and Yes No hepatosplenomegaly present Extremity: COMMON NORMALS: normal to inspection, capillary refill normal, no clubbing, cyanosis or edema, no calf tenderness and no pedal edema OTHER: Examination of the patient's left knee no ligamentous instability or laxity drawer Akbar's negative no laxity with varus or valgus stress. No joint effusion no obvious deformity Neuro: SENSORIUM/ORIENTATION: Yes oriented to person, Yes oriented to place and Yes oriented to time Skin: COMMON NORMALS: no rashes or lesions noted GENERAL SKIN EXAM: no rashes or lesions noted Course Vital Signs: Vital signs: Vital Signs Temperature 97.5 F L 11/02/24 09:13 Pulse Rate 60 11/02/24 10:21 Respiratory Rate 16 11/02/24 09:13 Blood Pressure 147/70 11/02/24 10:21 Pulse Oximetry 96 11/02/24 10:21 Oxygen Delivery Me thod Room Air 11/02/24 09:13 MDM - Extremity (Nontraumatic) Medical Decision Making Fall with left knee pain. Ground-level mechanical fall. No evidence of fracture on the x-ray. On exam there is no evidence of ligamentous injury or instability. His plain film does have a large amount of osteoarthritis and a very impressive amount of peripheral vascular disease. Encourage patient to take 81 mg aspirin daily follow-up with his primary care doctor think his pain is a combination of acute injury and chronic arthritis follow-up with his primary care regarding this as well. Can use diclofenac prescribed Lab Data Radiology Impressions Knee X-Ray 11/02/24 09:16 IMPRESSION: No acute abnormality. All radiology interpretation(s) finalized by discharge Discharge Plan Discharge Patient Disposition: Home Clinical Impression: Left knee sprain Condition: Stable Prescriptions: New diclofenac sodium 75 mg tablet,delayed release (DR/EC) 75 mg PO Q12H PRN (Reason: pain) Qty: 20 0RF No Action (DME) Contour Next Test Strips Strip See Rx Instructions .Route Qty: 50 11RF Rx Instructions: use to test blood sugar once daily prednisone 5 mg tablet 5 mg PO DAILY tamsulosin 0.4 mg capsule 0.4 mg PO DAILY trazodone 100 mg tablet 100 mg PO DAILY PRN (Reason: sleep ) losartan 100 mg tablet 100 mg PO DAILY fluticasone propionate [Flonase Allergy Relief] 50 mcg/actuation spray,suspension 1 spray intranasal BID PRN (Reason: allergies) Rx Instructions: administer into each nostril acetaminophen [Tylenol] 325 mg Tablet 325 mg PO QID PRN (Reason: Pain) fluorouracil 5 % cream 1 applic TOPICAL BID amlodipine 10 mg tablet 10 mg PO DAILY guaifenesin [Mucinex] 600 mg Tablet Extended Release 12hr 600 mg PO BID Discharge Orders: Discharge ED (Routine); Ordered 11/02/24 Ordered By: Basilio Quintero Referrals: Srinivasa Anderson MD [Primary Care Provider, Family Practice] Patient Instructions: Opioid Safety, Pain Management, Patient Portal & Jenna Instructions Activity Restrictions/Additional Instructions: Thank you for choosing [facility] for your healthcare needs today. It is very important that you follow up as instructed or that you return to the Emergency Department should you have concerns or if your condition changes or worsens in any way. You are seen with knee pain. X-ray was normal. Exam does not show any ligamentous injury. Print Language: Israeli Coding Level of Care Code ED Resident Care Associate for Steffany Redmond
[2024-11-02 10:21] VITALS: BP 147/70; PULSE 60; O2SAT 96
== END 2024-11-02 10:22 | disposition home or self-care (01) ==
PROVIDERS: Emergency Provider Family Medicine; PCP Family Medicine
DX: S83.92XA Sprain of unspecified site of left knee, initial encounter (principal); Z87.891 Personal history of nicotine dependence; E11.9 Type 2 diabetes mellitus without complications; I10 Essential (primary) hypertension; W19.XXXA Unspecified fall, initial encounter
CPT/HCPCS: 73560; 99283

== ENCOUNTER 2024-11-06 12:50 | Emergency (ER) | payer MEDICARE, SELFPAY ==
[2024-11-06 12:53] VITALS: BP 124/63; PULSE 69; RESP 16; TEMP 36.4; O2SAT 98; BMI 21.2
--- OUTSIDE RECORDS SUMMARY | 2024-11-06 12:55 | XMS_ITS | Encounter Summary ---
Author Organization [facility] Address [address] [facility] [place] [address] Care Team Providers Care Epic Prelude Analyst Name Role Phone Srinivasa Anderson MD Primary Care Provider [phone] Encounter Details Date Type Department Care Team (Latest Contact Info) Description 04/19/2006 Outpatient Historical [facility] [place] [place] [address] Srinivasa Anderson MD [address] [place] [address] Other Testicular Hypofunction (Primary Dx) Social History Tobacco Use Types Packs/Day Years Used Date Smoking Tobacco: Never Assessed Sex and Gender Information Value Date Recorded Sex Assigned at Not on file 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
--- OUTSIDE RECORDS SUMMARY | 2024-11-06 12:55 | XMS_ITS | Encounter Summary ---
Author Organization [facility] Address [address] [facility] [place] [address] Care Team Providers Care Door Machine Operator Name Role Phone Srinivasa Anderson MD Primary Care Provider [phone] Encounter Details Date Type Department Care Team (Latest Contact Info) Description 11/21/2006 Outpatient Historical [facility] [place] [place] [address] Srinivasa Anderson MD [address] [place] [address] Other Testicular Hypofunction (Primary Dx) Social History Tobacco Use Types Packs/Day Years Used Date Smoking Tobacco: Never Assessed Sex and Gender Information Value Date Recorded Sex Assigned at Not on file 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
--- OUTSIDE RECORDS SUMMARY | 2024-11-06 12:55 | XMS_ITS | Encounter Summary ---
Author Organization [facility] Address [address] [facility] [place] [address] Care Team Providers Care Shuttle Fitting Supervisor Name Role Phone Srinivasa Anderson MD Primary Care Provider [phone] Encounter Details Date Type Department Care Team (Latest Contact Info) Description 08/15/2006 Outpatient Historical [facility] [place] [place] [address] Srinivasa Anderson MD [address] [place] [address] Other Testicular Hypofunction (Primary Dx) Social History Tobacco Use Types Packs/Day Years Used Date Smoking Tobacco: Never Assessed Sex and Gender Information Value Date Recorded Sex Assigned at Not on file 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
--- OUTSIDE RECORDS SUMMARY | 2024-11-06 12:55 | XMS_ITS | Encounter Summary ---
Author Organization [facility] Address [address] [facility] [place] [address] Care Team Providers Care Automobile Body Customizer Name Role Phone Srinivasa Anderson MD Primary Care Provider [phone] Encounter Details Date Type Department Care Team (Latest Contact Info) Description 04/11/2006 Outpatient Historical [facility] Dermatology- [facility] [address] [place] [address] Zoltan Mahoney MD NO ADDRESS ON FILE Malig John Skin Ear (Primary Dx); Actinic Keratosis; Other Seborrheic Keratosis Social History Tobacco Use Types Packs/Day Years Used Date Smoking Tobacco: Never Assessed Sex and Gender Information Value Date Recorded Sex Assigned at Not on file 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
--- OUTSIDE RECORDS SUMMARY | 2024-11-06 12:55 | XMS_ITS | Encounter Summary ---
Author Organization [facility] Address [address] [place] [address] Care Team Providers Care Stone Sandblaster Name Role Phone Srinivasa Anderson MD Primary Care Provider [phone] Encounter Details Date Type Department Care Team (Latest Contact Info) Description 11/22/2005 Outpatient Historical [facility] [place] [place] [address] Nati Espinoza MD [address] [place] [address] Other Testicular Hypofunction (Primary Dx) Social History Tobacco Use Types Packs/Day Years Used Date Smoking Tobacco: Never Assessed Sex and Gender Information Value Date Recorded Sex Assigned at Not on file 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
--- OUTSIDE RECORDS SUMMARY | 2024-11-06 12:55 | XMS_ITS | Encounter Summary ---
Author Organization [facility] Address [address] [place] [address] Care Team Providers Care Associate Property Manager Name Role Phone Srinivasa Anderson MD Primary Care Provider [phone] Encounter Details Date Type Department Care Team (Latest Contact Info) Description 10/10/2006 Outpatient Historical [facility] Dermatology- [facility] [address] [place] [id number] Zoltan Mahoney MD NO ADDRESS ON FILE Actinic Keratosis (Primary Dx); Other Seborrheic Keratosis; Benign John Scalp/Skin Neck Social History Tobacco Use Types Packs/Day Years Used Date Smoking Tobacco: Never Assessed Sex and Gender Information Value Date Recorded Sex Assigned at Not on file 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
--- OUTSIDE RECORDS SUMMARY | 2024-11-06 12:55 | XMS_ITS | Encounter Summary ---
Author Organization [facility] Address [address] [facility] [facility] [place] [address] Care Team Providers Care Director Of Student Affairs Name Role Phone Srinivasa Anderson MD Primary Care Provider [phone] Encounter Details Date Type Department Care Team (Latest Contact Info) Description 07/25/2006 Outpatient Historical [facility] [place] [place] [address] Srinivasa Anderson MD [address] [place] [address] Other Abnormal Blood Chemistry (Primary Dx); Osteoarth NOS-Unspec; 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 Social History Tobacco Use Types Packs/Day Years Used Date Smoking Tobacco: Never Assessed Sex and Gender Information Value Date Recorded Sex Assigned at Not on file 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
--- OUTSIDE RECORDS SUMMARY | 2024-11-06 12:55 | XMS_ITS | Encounter Summary ---
Author Organization [facility] Address [address] [place] [address] Care Team Providers Care Roller Die Cutting Machine Operator Name Role Phone Srinivasa Anderson MD Primary Care Provider [phone] Encounter Details Date Type Department Care Team (Latest Contact Info) Description 04/25/2006 Outpatient Historical [facility] [place] [place] [address] Srinivasa Anderson MD [address] [place] [address] Acute Sinusitis, Unspecified (Primary Dx) Social History Tobacco Use Types Packs/Day Years Used Date Smoking Tobacco: Never Assessed Sex and Gender Information Value Date Recorded Sex Assigned at Not on file 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
--- OUTSIDE RECORDS SUMMARY | 2024-11-06 12:55 | XMS_ITS | Encounter Summary ---
Author Organization [facility] Address [address] [place] [address] Care Team Providers Care Corporate Webmaster Name Role Phone Srinivasa Anderson MD Primary Care Provider [phone] Encounter Details Date Type Department Care Team (Late st Contact Info) Description 05/03/2006 Outpatient Historical [facility] [address] [place] [address] Srinivasa Anderson MD [address] [address] Social History Tobacco Use Types Packs/Day Years Used Date Smoking Tobacco: Never Assessed Sex and Gender Information Value Date Recorded Sex Assigned at Not on file 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
--- OUTSIDE RECORDS SUMMARY | 2024-11-06 12:55 | XMS_ITS | Encounter Summary ---
Author Organization [facility] Address [address] [place] [address] Care Team Providers Care Dance Hall Host/Hostess Name Role Phone Srinivasa Anderson MD Primary Care Provider [phone] Encounter Details Date Type Department Care Team (Latest Contact Info) Description 12/21/2005 Outpatient Historical [facility] [place] [place] [address] Srinivasa Anderson MD [address] [place] [address] Other Malaise and Fatigue (Primary Dx); Other Testicular Hypofunction; Depressive Disorder, not Elsewhere Classified Social History Tobacco Use Types Packs/Day Years Used Date Smoking Tobacco: Never Assessed Sex and Gender Information Value Date Recorded Sex Assigned at Not on file 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
--- OUTSIDE RECORDS SUMMARY | 2024-11-06 12:55 | XMS_ITS | Encounter Summary ---
Author Organization [facility] Address [address] [place] [address] Care Team Providers Care Laundry Operator Name Role Phone Srinivasa Anderson MD Primary Care Provider [phone] Encounter Details Date Type Department Care Team (Latest Contact Info) Description 10/10/2005 Outpatient Historical [facility] [address] 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
--- OUTSIDE RECORDS SUMMARY | 2024-11-06 12:55 | XMS_ITS | Encounter Summary ---
Author Organization [facility] Address [address] [facility] [facility] [place] [address] Care Team Providers Care Buttonhole Maker Hand Name Role Phone Srinivasa Anderson MD Primary Care Provider [phone] Encounter Details Date Type Department Care Team (Latest Contact Info) Description 09/27/2005 Outpatient Historical [facility] Dermatology- [facility] [address] [place] [address] Zoltan Mahoney MD NO ADDRESS ON FILE Malig John Skin Arm (Primary Dx); Actinic Keratosis; Other Seborrheic Keratosis Social History Tobacco Use Types Packs/Day Years Used Date Smoking Tobacco: Never Assessed Sex and Gender Information Value Date Recorded Sex Assigned at Not on file 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
--- OUTSIDE RECORDS SUMMARY | 2024-11-06 12:55 | XMS_ITS | Encounter Summary ---
Author Organization [facility] Address [address] [place] [address] Care Team Providers Care Body Hanger Name Role Phone Srinivasa Anderson MD Primary Care Provider [phone] Encounter Details Date Type Department Care Team (Latest Contact Info) Description 12/19/2006 Outpatient Historical [facility] [place] [place] [address] Srinivasa Anderson MD [address] [place] [address] Other Testicular Hypofunction (Primary Dx) Social History Tobacco Use Types Packs/Day Years Used Date Smoking Tobacco: Never Assessed Sex and Gender Information Value Date Recorded Sex Assigned at Not on file 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
--- OUTSIDE RECORDS SUMMARY | 2024-11-06 12:55 | XMS_ITS | Encounter Summary ---
Author Organization [facility] Address [address] [facility] [place] [address] Care Team Providers Care Gas Tester Name Role Phone Srinivasa Anderson MD Primary Care Provider [phone] Encounter Details Date Type Department Care Team (Latest Contact Info) Description 06/19/2006 Outpatient Historical [facility] [place] [place] [address] Srinivasa Anderson MD [address] [place] [address] Other Testicular Hypofunction (Primary Dx) Social History Tobacco Use Types Packs/Day Years Used Date Smoking Tobacco: Never Assessed Sex and Gender Information Value Date Recorded Sex Assigned at Not on file 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
--- OUTSIDE RECORDS SUMMARY | 2024-11-06 12:55 | XMS_ITS | Encounter Summary ---
Author Organization [facility] Address [address] [place] [address] Care Team Providers Care Outsole Cementer Name Role Phone Srinivasa Anderson MD Primary Care Provider [phone] Encounter Details Date Type Department Care Team (Latest Contact Info) Description 07/25/2005 Outpatient Historical [facility] Dermatology- [facility] [address] [place] [address] Zoltan Mahoney MD NO ADDRESS ON FILE Malig John Skin Arm (Primary Dx); Other Seborrheic Keratosis Social History Tobacco Use Types Packs/Day Years Used Date Smoking Tobacco: Never Assessed Sex and Gender Information Value Date Recorded Sex Assigned at Not on file 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
--- OUTSIDE RECORDS SUMMARY | 2024-11-06 12:55 | XMS_ITS | Encounter Summary ---
Author Organization [facility] Address [address] [place] [place] [address] Care Team Providers Care Trust Manager Name Role Phone Srinivasa Anderson MD Primary Care Provider Encounter Details Date Type Department Care Team (Latest Contact Info) Description 07/25/2005 Outpatient Historical [facility] [address] 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
--- OUTSIDE RECORDS SUMMARY | 2024-11-06 12:55 | XMS_ITS | Encounter Summary ---
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, Uncontrolled (Primary Dx) Social History Tobacco Use Types Packs/Day Years Used Date Smoking Tobacco: Never Assessed Sex and Gender Information Value Date Recorded Sex Assigned at Not on file 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
--- OUTSIDE RECORDS SUMMARY | 2024-11-06 12:55 | XMS_ITS | Encounter Summary ---
Author Organization [facility] Address [address] [facility] [address] Care Team Providers Care Director Of Email Marketing Name Role Phone Srinivasa Anderson MD Primary Care Provider [phone] Encounter Details Date Type Department Care Team (Latest Contact Info) Description 10/24/2006 Outpatient Historical [facility] [place] [place] [address] Srinivasa Anderson MD [address] [place] [address] Other Testicular Hypofunction (Primary Dx) Social History Tobacco Use Types Packs/Day Years Used Date Smoking Tobacco: Never Assessed Sex and Gender Information Value Date Recorded Sex Assigned at Not on file 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
--- OUTSIDE RECORDS SUMMARY | 2024-11-06 12:55 | XMS_ITS | Encounter Summary ---
Author Organization [facility] Address [address] [place] [facility] [place] [address] Care Team Providers Care Mobile Equipment Mechanic Name Role Phone Srinivasa Anderson MD Primary Care Provider [phone] Encounter Details Date Type Department Care Team (Latest Contact Info) Description 01/16/2007 Outpatient Historical [facility] [place] [place] [address] Srinivasa Anderson MD [address] [place] [address] Other Abnormal Blood Chemistry (Primary Dx); Iatrogenic Pulmonary Embolism and Infarction (CMS/HCC); Other and Unspecified Hyperlipidemia; Other Testicular Hypofunction Social History Tobacco Use Types Packs/Day Years Used Date Smoking Tobacco: Never Assessed Sex and Gender Information Value Date Recorded Sex Assigned at Not on file 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 TECHNICIAN Gender Identity Not on file Sexual Orientation Not on file documented as of this encounter Plan of Treatment Not on file documented as of this encounter Visit Diagnoses Diagnosis Other abnormal blood chemistry- Primary 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
--- OUTSIDE RECORDS SUMMARY | 2024-11-06 12:55 | XMS_ITS | Encounter Summary ---
Author Organization [facility] Address [address] [place] [address] Care Team Providers Care Voip Engineer Name Role Phone Srinivasa Anderson MD Primary Care Provider [phone] Encounter Details Date Type Department Care Team (Latest Contact Info) Description 09/26/2006 Outpatient Historical [facility] [place] [place] [address] Srinivasa Anderson MD [address] [place] [address] Other Testicular Hypofunction (Primary Dx) Social History Tobacco Use Types Packs/Day Years Used Date Smoking Tobacco: Never Assessed Sex and Gender Information Value Date Recorded Sex Assigned at Not on file 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
--- OUTSIDE RECORDS SUMMARY | 2024-11-06 12:55 | XMS_ITS | Encounter Summary ---
Author Organization [facility] Address [address] [place] [address] Care Team Providers Care Lead Data Entry Operator Name Role Phone Srinivasa Anderson MD Primary Care Provider [phone] Encounter Details Date Type Department Care Team (Late st Contact Info) Description 06/03/2006 Outpatient Historical [facility] [address] [place] [address] Srinivasa Anderson MD [address] [phone] Social History Tobacco Use Types Packs/Day Years Used Date Smoking Tobacco: Never Assessed Sex and Gender Information Value Date Recorded Sex Assigned at Not on file 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
--- OUTSIDE RECORDS SUMMARY | 2024-11-06 12:55 | XMS_ITS | Encounter Summary ---
Author Organization [facility] Address [address] [place] [address] Care Team Providers Care Pizza Cook Name Role Phone Srinivasa Anderson MD Primary Care Provider [phone] Encounter Details Date Type Department Care Team (Latest Contact Info) Description 08/16/2005 Outpatient Historical [facility] [place] [place] [address] Srinivasa Anderson MD [address] [place] [address] Other Testicular Hypofunction (Primary Dx) Social History Tobacco Use Types Packs/Day Years Used Date Smoking Tobacco: Never Assessed Sex and Gender Information Value Date Recorded Sex Assigned at Not on file 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
--- OUTSIDE RECORDS SUMMARY | 2024-11-06 12:55 | XMS_ITS | Encounter Summary ---
Author Organization [facility] Address [address] [facility] [facility] [place] [address] Care Team Providers Care Medical Billing And Coding Specialist Name Role Phone Srinivasa Anderson MD Primary Care Provider [phone] Encounter Details Date Type Department Care Team (Latest Contact Info) Description 10/10/2005 Outpatient Historical [facility] Dermatology- [facility] [address] [place] [address] Zoltan Mahoney MD NO ADDRESS ON FILE Malig John Skin Ear (Primary Dx); Malig John Skin Arm Social History Tobacco Use Types Packs/Day Years Used Date Smoking Tobacco: Never Assessed Sex and Gender Information Value Date Recorded Sex Assigned at Not on file 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
--- OUTSIDE RECORDS SUMMARY | 2024-11-06 12:55 | XMS_ITS | Encounter Summary ---
Author Organization [facility] Address [address] [facility] [place] [address] Care Team Providers Care Security Alarm Technician Name Role Phone Srinivasa Anderson MD Primary Care Provider [phone] Encounter Details Date Type Department Care Team (Latest Contact Info) Description 01/18/2006 Outpatient Historical [facility] [place] [place] [address] Srinivasa Anderson MD [address] [place] [address] Other Testicular Hypofunction (Primary Dx) Social History Tobacco Use Types Packs/Day Years Used Date Smoking Tobacco: Never Assessed Sex and Gender Information Value Date Recorded Sex Assigned at Not on file 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
--- OUTSIDE RECORDS SUMMARY | 2024-11-06 12:55 | XMS_ITS | Encounter Summary ---
Author Organization [facility] Address [address] [place] [address] Care Team Providers Care Auto Slip Cover Installer Name Role Phone Srinivasa Anderson MD Primary Care Provider [phone] Encounter Details Date Type Department Care Team (Latest Contact Info) Description 2006 Outpatient Historical [facility] [place] [place] [address] Srinivasa Anderson MD [address] [place] [address] Other Testicular Hypofunction (Primary Dx) Social History Tobacco Use Types Packs/Day Years Used Date Smoking Tobacco: Never Assessed Sex and Gender Information Value Date Recorded Sex Assigned at Not on file 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
--- OUTSIDE RECORDS SUMMARY | 2024-11-06 12:55 | XMS_ITS | Encounter Summary ---
Author Organization [facility] Address [address] [facility] [place] [address] Care Team Providers Care Reconciliation Accountant Name Role Phone Srinivasa Anderson MD Primary Care Provider [phone] Encounter Details Date Type Department Care Team (Latest Contact Info) Description 09/04/2005 Outpatient Historical [facility] [place] [place] [address] Srinivasa Anderson MD [address] [place] [address] Unspecified Essential Hypertension (Primary Dx); Other and Unspecified Hyperlipidemia; Abdominal Pain, Unspecified Site; Depressive Disorder, not Elsewhere Classified Social History Tobacco Use Types Packs/Day Years Used Date Smoking Tobacco: Never Assessed Sex and Gender Information Value Date Recorded Sex Assigned at Not on file 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
--- OUTSIDE RECORDS SUMMARY | 2024-11-06 12:55 | XMS_ITS | Encounter Summary ---
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); Depressive Disorder, not Elsewhere Classified Social History Tobacco Use Types Packs/Day Years Used Date Smoking Tobacco: Never Assessed Sex and Gender Information Value Date Recorded Sex Assigned at Not on file 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
--- OUTSIDE RECORDS SUMMARY | 2024-11-06 12:55 | XMS_ITS | Encounter Summary ---
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
--- OUTSIDE RECORDS SUMMARY | 2024-11-06 12:55 | XMS_ITS | Encounter Summary ---
Author Organization [facility] Address [address] [place] [address] Care Team Providers Care Registered Dietetic Technician Name Role Phone Srinivasa Anderson MD Primary Care Provider [phone] Encounter Details Date Type Department Care Team (Latest Contact Info) Description 03/10/2007 Outpatient Historical [facility] [address] 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
--- OUTSIDE RECORDS SUMMARY | 2024-11-06 12:55 | XMS_ITS | Encounter Summary ---
Author Organization [facility] Address [address] [place] [address] Care Team Providers Care Stamping Die Try Out Worker Name Role Phone Srinivasa Anderson MD Primary Care Provider [phone] Reason for Visit * Reason Comments Needs Orders Written Encounter Details Date Type Department Care Team (Late st Contact Info) Description 10/30/2024 Telephone [facility] [place] [place] [address] Srinivasa Anderson MD [address] [place] [address] Needs Orders Written Social History Tobacco Use Types Packs/Day Years Used Date Smoking Tobacco: Never Smokeless Tobacco: Former Alcohol Use Standard Drinks/Week Comments Yes 0 (1 standard drink = 0.6 oz pur e alcohol) occ Sex and Gender Information Value Date Recorded Sex Assigned at Not on file Legal Sex Male 6:28 AM CURRICULUM COUNSELOR Gender Identity Not on file Sexual Orientation Not on file documented as of this encounter Miscellaneous Notes * Telephone Encounter - Giana Chapa LPN - 11/03/2024 10:15 AM CDT 11/03/2024 10:15 AM Patient called and updated. Giana CRAIN * Telephone Encounter - Srinivasa Anderson MD - 10/30/2024 11:28 AM CDT I think it would be best to have him evaluated at the ER in [place]. The extent of imaging needed will depend [...] She states that she [place] drive in [place] and wants Dr Anderson to order imaging at [facility]. Requesting: Advise. Giana CRAIN * Telephone Encounter - Elisa Lai - 10/30/2024 9:01 AM CDT Copied from [facility] #[id number]. Topic: CPA Information Request - Order or Referral Request >> Oct 30, 2024 9:00 AM Elisa Suero wrote: Caller Name: Sultana (Spouse) on [facility] Patient/Caregiver Callback Number: [phone] Call Notes: Spouse would like a call. Caller is requesting: New Non Lab Order Has the patient been seen for this issue? Yes Order: MRI or CT Scan on L Knee Reason for Request: Soft Tissue Damage, Fall from last week Preferred Facility/Location: [facility] documented in this encounter Plan of Treatment Upcoming Encounters Date Type Department Care Team (Late st Contact Info) Description 11/20/2024 9:20 AM CDT Office Visit [facility] [address] [place] [phone] Giana FowlerMARIA C [address] [place] [phone] 12/25/2024 1:30 PM CDT Office Visit [facility] [place] [place] [address] Srinivasa Anderson MD [address] [place] [address] 03/04/2025 11:00 AM CURRICULUM COUNSELOR Office Visit [facility] [address] [place] [phone] Kodak Samuel MD [address] [place] [phone] 03/11/2025 1:00 PM CURRICULUM COUNSELOR Office Visit [facility] [address] [place] [phone] Mariela Stone MD [address] [place] [phone] Kay Bennett NP NO ADDRESS ON FILE documented as of this encounter Visit Diagnoses Not on filedocumented in this encounter Care Teams Stamping Die Try Out Worker Relationship Specialty Start Date End Date Srinivasa Anderson MD [address] [place] [address] PCP - General Family Practice 05/18/24 documented as of this encounter
--- OUTSIDE RECORDS SUMMARY | 2024-11-06 12:55 | XMS_ITS | Encounter Summary ---
Author Organization [facility] Address [address] [place] [address] Care Team Providers Care Industrial Chemist Name Role Phone Srinivasa Anderson MD Primary Care Provider [phone] Encounter Details Date Type Department Care Team (Latest Contact Info) Description 02/07/2006 Outpatient Historical [facility] [place] [place] [address] Srinivasa Anderson MD [address] [place] [address] Other Testicular Hypofunction (Primary Dx) Social History Tobacco Use Types Packs/Day Years Used Date Smoking Tobacco: Never Assessed Sex and Gender Information Value Date Recorded Sex Assigned at Not on file 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
--- OUTSIDE RECORDS SUMMARY | 2024-11-06 12:55 | XMS_ITS | Encounter Summary ---
Author Organization [facility] Address [address] [place] [address] Care Team Providers Care Key Person Name Role Phone Srinivasa Anedrson MD Primary Care Provider [phone] Encounter Details Date Type Department Care Team (Latest Contact Info) Description 03/26/2006 Outpatient [facility] [place] [place] [address] Srinivasa Anderson MD [address] [place] [address] Other Testicular Hypofunction (Primary Dx); Vaccine for influenza; Lumbago Social History Tobacco Use Types Packs/Day Years Used Date Smoking Tobacco: Never Assessed Sex and Gender Information Value Date Recorded Sex Assigned at Not on file 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
--- OUTSIDE RECORDS SUMMARY | 2024-11-06 12:55 | XMS_ITS | Encounter Summary ---
Author Organization [facility] Address [address] [place] [address] Care Team Providers Care Glaze Grinder Name Role Phone Srinivasa Anderson MD Primary Care Provider [phone] Encounter Details Date Type Department Care Team (Latest Contact Info) Description 05/15/2006 Outpatient Historical [facility] [place] [place] [address] Srinivasa Anderson MD [address] [place] [address] Other Testicular Hypofunction (Primary Dx) Social History Tobacco Use Types Packs/Day Years Used Date Smoking Tobacco: Never Assessed Sex and Gender Information Value Date Recorded Sex Assigned at Not on file 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
--- OUTSIDE RECORDS SUMMARY | 2024-11-06 12:55 | XMS_ITS | Encounter Summary ---
Author Organization [facility] Address [address] [facility] [place] [address] Care Team Providers Care Fruit Or Nut Grower Name Role Phone Srinivasa Anderson MD Primary Care Provider [phone] Encounter Details Date Type Department Care Team (Latest Contact Info) Description 10/19/2005 Outpatient Historical [facility] [place] [place] [address] Srinivasa Anderson MD [address] [place] [address] Other Testicular Hypofunction (Primary Dx) Social History Tobacco Use Types Packs/Day Years Used Date Smoking Tobacco: Never Assessed Sex and Gender Information Value Date Recorded Sex Assigned at Not on file 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
--- OUTSIDE RECORDS SUMMARY | 2024-11-06 12:55 | XMS_ITS | Encounter Summary ---
Author Organization [facility] Address [address] [place] [address] Care Team Providers Care Sales Agent Insurance Name Role Phone Srinivasa Anderson MD Primary Care Provider [phone] Encounter Details Date Type Department Care Team (Latest Contact Info) Description 04/11/2006 Outpatient Historical [facility] [address] 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
--- OUTSIDE RECORDS SUMMARY | 2024-11-06 12:55 | XMS_ITS | Encounter Summary ---
Author Organization [facility] Address [address] [facility] [address] Care Team Providers Care Quality Assurance Representative Name Role Phone Srinivasa Anderson MD Primary Care Provider [phone] Reason for Referral * Outpatient Services (Routine) - Closed Specialty Diagnoses / Procedures Referred By Contac t Referred To Contact Diagnoses Breast swelling Procedures MAMMO DIGITAL DIAG BILAT Srinivasa Anderson MD [address] [place] [address] Phone: tel: fax: Referral ID Status Reason Start Date Expiration Date Visits Re quested Visits Authorized [id number] Closed 04/08/2012 04/08/2013 1 1 PLATE PLYWOOD PRESS OPERATOR Encounter Details Date Type Department Care Team (Late st Contact Info) Description 04/08/2012 Ancillary Orders [facility] [place] [place] [address] Srinivasa Anderson MD [address] [place] [address] Breast swelling Social History Tobacco Use Types Packs/Day Years Used Date Smoking Tobacco: Former Cigarettes 0.5 30 0 04/22/1962 - 04/22/1992 Smokeless Tobacco: Never Alcohol Use Standard Drinks/Week Comments No 0 (1 standard drink = 0.6 oz pur e alcohol) Sex and Gender Information Value Date Recorded Sex Assigned at Not on file Legal Sex Male 3:08 AM HOT PLATE PLYWOOD PRESS OPERATOR Gender Identity Not on file Sexual Orientation Not on file Occupation Industry Job Start Date Job End Date Not on file Not on file Not on file Not on file documented as of this encounter Plan of Treatment Not on file documented as of this encounter Results * MAMMO DIGITAL DIAG BILAT (04/08/2012 11:03 AM HOT PLATE PLYWOOD PRESS OPERATOR) Anatomical Region Laterality Modality Breast Bilateral Mammography 04/08/2012 10:0 1 AM HOT PLATE PLYWOOD PRESS OPERATOR Impressions 04/08/2012 8:55 PM HOT PLATE PLYWOOD PRESS OPERATOR IMPRESSION: Bilateral diagnostic exam and directed left breast ultrasound was performed today. The mammogram is unremarkable as well as the directed left breast ultrasound. Therefore clinical correlation is recommended regarding the reported symptoms. Patient received the result and recommendation letter. Spencer 1140 AM - uploaded from [employer] - Narrative 04/08/2012 8:55 PM HOT PLATE PLYWOOD PRESS OPERATOR REASON FOR EXAM: Patient is reporting to [...] by the Computer Aided Detection System (CAD), E[employer] Gl[employer] ImageChecker, Version 8.3. LEFT BREAST ULTRASOUND: Sonographic [...] by the Computer Aided Detection System (CAD), Ebook Glue Image360Tcker, Version 8.3. LEFT BREAST ULTRASOUND: Sonographic evaluation [...] letter. DB/allie 1140 AM - uploaded from [employer] - us Srinivasa Anderson MD MAMMO ORDERABLES Final Result documented in this encounter Visit Diagnoses Diagnosis Breast swelling Lump or mass in breast Breast swelling Lump or mass in breast documented in this encounter Care Teams Quality Assurance Representative Relationship Specialty Start Date End Date Srinivasa Anderson MD [address] [address] PCP - General 07/18/04 documented as of this encounter
--- OUTSIDE RECORDS SUMMARY | 2024-11-06 12:55 | XMS_ITS | Encounter Summary ---
Author Organization [facility] Address [address] [place] [address] Care Team Providers Care Galley Stripper Name Role Phone Srinivasa Anderson MD Primary Care Provider [phone] Reason for Referral * Outpatient Services (Routine) - Closed Specialty Diagnoses / Procedures Referred By Contac t Referred To Contact Diagnoses Breast swelling Procedures MAMMO BREAST US LT Srinivasa Anderson MD [address] [place] [address] Phone: tel: fax: Referral ID Status Reason Start Date Expiration Date Visits Re quested Visits Authorized [id number] Closed 04/08/2012 04/08/2013 1 1 LIFE MANAGER Encounter Details Date Type Department Care Team (Late st Contact Info) Description 04/08/2012 [facility] [place] [place] [address] Srinivasa Anderson MD [address] [place] [address] Breast swelling Social History Tobacco Use Types Packs/Day Years Used Date Smoking Tobacco: Former Cigarettes 0.5 30 0 04/22/1962 - 04/22/1992 Smokeless Tobacco: Never Alcohol Use Standard Drinks/Week Comments No 0 (1 standard drink = 0.6 oz pur e alcohol) Sex and Gender Information Value Date Recorded Sex Assigned at Not on file Legal Sex Male 3:08 AM WILDLIFE MANAGER Gender Identity Not on file Sexual Orientation Not on file Occupation Industry Job Start Date Job End Date Not on file Not on file Not on file Not on file documented as of this encounter Plan of Treatment Not on file documented as of this encounter Results * MAMMO BREAST US LT (04/08/2012 11:31 AM WILDLIFE MANAGER) Anatomical Region Laterality Modality Breast Left Ultrasound 04/08/2012 11:1 3 AM WILDLIFE MANAGER Impressions 04/08/2012 8:55 PM WILDLIFE MANAGER IMPRESSION: Bilateral diagnostic exam and directed left breast ultrasound was performed today. The mammogram is unremarkable as well as the directed left breast ultrasound. Therefore clinical correlation is recommended regarding the reported symptoms. Patient received the result and recommendation letter. Spencer 1140 AM - uploaded from [email or web address] 04/08/2012 8:55 PM WILDLIFE MANAGER REASON FOR EXAM: Patient is reporting to [...] by the Computer Aided Detection System (CAD), Renrendai ImageChecker, Version 8.3. LEFT BREAST ULTRASOUND: Sonographic [...] by the Computer Aided Detection System (CAD), Renrendai ImageFlocationscker, Version 8.3. LEFT BREAST ULTRASOUND: Sonographic evaluation [...] letter. DB/allie 1140 AM - uploaded from [email or web address] - us Srinivasa Anderson MD MAMMO ORDERABLES Final Result documented in this encounter Visit Diagnoses Diagnosis Breast swelling Lump or mass in breast Breast swelling Lump or mass in breast documented in this encounter Care Teams Galley Stripper Relationship Specialty Start Date End Date Srinivasa Anderson MD [address] [address] PCP - General 07/18/04 documented as of this encounter
--- OUTSIDE RECORDS SUMMARY | 2024-11-06 12:56 | XMS_ITS | Encounter Summary ---
Author Organization [facility] Address [address] [facility] [place] [address] Care Team Providers Care Wire Frame Lamp Shade Maker Name Role Phone Srinivasa Anderson MD Primary Care Provider [phone] Encounter Details Date Type Department Care Team (Latest Contact Info) Description 08/04/2002 Outpatient Historical [facility] Int [facility] [place] [place] [address] Mark Lux MD [address] [place] [address] JOINT PAIN-PELVIS (Primary Dx) Social History Tobacco Use Types Packs/Day Years Used Date Smoking Tobacco: Never Assessed Sex and Gender Information Value Date Recorded Sex Assigned at Not on file 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
--- OUTSIDE RECORDS SUMMARY | 2024-11-06 12:56 | XMS_ITS | Encounter Summary ---
Author Organization [facility] Address [address] [facility] [place] [address] Care Team Providers Care Adult Neurologist Name Role Phone Srinivasa Anderson MD Primary Care Provider [phone] Encounter Details Date Type Department Care Team (Latest Contact Info) Description 11/10/2003 Outpatient Historical [facility] Int [facility] [place] [place] [address] Mark Lux MD [address] [place] [address] HYPERTENSION NOS (Primary Dx); Pure hypercholesterolem; B12 DEFIC ANEMIA NEC Social History Tobacco Use Types Packs/Day Years Used Date Smoking Tobacco: Never Assessed Sex and Gender Information Value Date Recorded Sex Assigned at Not on file Legal Sex Male 3:08 AM DETAIL MANAGER Gender Identity Not on file Sexual Orientation Not on file documented as of this encounter Plan of Treatment Not on file documented as of this encounter Visit Diagnoses Diagnosis Unspecified essential hypertension- Primary Pure hypercholesterolem Pure hypercholesterolemia Other vitamin B12 deficiency anemia documented in this encounter Care Teams Adult Neurologist Relationship Specialty Start Date End Date Srinivasa Anderson MD [address] [place] [address] PCP - General 07/18/04 documented as of this encounter
--- OUTSIDE RECORDS SUMMARY | 2024-11-06 12:56 | XMS_ITS | Encounter Summary ---
Author Organization [facility] Address [address] [place] [address] Care Team Providers Care Tombstone Erector Helper Name Role Phone Srinivasa Anderson MD Primary Care Provider Encounter Details Date Type Department Care Team (Latest Contact Info) Description 10/26/2004 Outpatient Historical [facility] [address] 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
--- OUTSIDE RECORDS SUMMARY | 2024-11-06 12:56 | XMS_ITS | Encounter Summary ---
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); Inflamed seborr keratos; Other seborrheic keratosis Social History Tobacco Use Types Packs/Day Years Used Date Smoking Tobacco: Never Assessed Sex and Gender Information Value Date Recorded Sex Assigned at Not on file 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 Male 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 Gender Identity Not on file Sexual Orientation Not on file documented as of this encounter Plan of Treatment Not on file documented as of this encounter Visit Diagnoses Diagnosis 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
--- OUTSIDE RECORDS SUMMARY | 2024-11-06 12:56 | XMS_ITS | Encounter Summary ---
Author Organization [facility] Address [address] [facility] [place] [address] Care Team Providers Care Windows Support Engineer Name Role Phone Srinivasa Anderson MD Primary Care Provider [phone] Encounter Details Date Type Department Care Team (Latest Contact Info) Description 08/30/2003 Outpatient Historical [facility] Int [facility] [place] [place] [address] Mark Lux MD [address] [place] [address] ABDOMINAL PAIN UNSPEC SITE (Primary Dx) Social History Tobacco Use Types Packs/Day Years Used Date Smoking Tobacco: Never Assessed Sex and Gender Information Value Date Recorded Sex Assigned at Not on file Legal Sex Male 3:08 AM 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
--- OUTSIDE RECORDS SUMMARY | 2024-11-06 12:56 | XMS_ITS | Encounter Summary ---
Author Organization [facility] Address [address] [facility] [facility] [place] [address] Care Team Providers Care Legal Receptionist Name Role Phone Srinivasa Anderson MD Primary Care Provider [phone] Encounter Details Date Type Department Care Team (Late st Contact Info) Description 10/21/2000 Outpatient Historical [facility] Int [facility] [address] [place] [address] Yfn Hahn MD [address] [place] [address] Routine medical exam (Primary Dx) Social History Tobacco Use Types Packs/Day Years Used Date Smoking Tobacco: Never Assessed Sex and Gender Information Value Date Recorded Sex Assigned at Not on file Legal Sex Male 3:08 AM 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
--- OUTSIDE RECORDS SUMMARY | 2024-11-06 12:56 | XMS_ITS | Encounter Summary ---
Author Organization [facility] Address [address] [place] [address] Care Team Providers Care Adoption Agent Name Role Phone Srinivasa Anderson MD Primary Care Provider [phone] Encounter Details Date Type Department Care Team (Latest Contact Info) Description 02/08/2004 Outpatient Historical [facility] Imaging Services-Nilay Robles [place] [address] [place] [address] Mark Lux MD [address] [place] [address] HEMATURIA (Primary Dx) Social History Tobacco Use Types Packs/Day Years Used Date Smoking Tobacco: Never Assessed Sex and Gender Information Value Date Recorded Sex Assigned at Not on file 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
--- OUTSIDE RECORDS SUMMARY | 2024-11-06 12:56 | XMS_ITS | Encounter Summary ---
Author Organization [facility] Address [address] [place] [address] Care Team Providers Care Center Receptionist Name Role Phone Srinivasa Anderson MD Primary Care Provider [phone] Encounter Details Date Type Department Care Team (Latest Contact Info) Description 08/04/2002 Outpatient Historical [facility] Imaging Services-Nilay Robles [place] [address] [place] [address] Mark Lux MD [address] [place] [address] JOINT PAIN-PELVIS (Primary Dx) Social History Tobacco Use Types Packs/Day Years Used Date Smoking Tobacco: Never Assessed Sex and Gender Information Value Date Recorded Sex Assigned at Not on file 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
--- OUTSIDE RECORDS SUMMARY | 2024-11-06 12:56 | XMS_ITS | Encounter Summary ---
Author Organization [facility] Address [address] [facility] [address] Care Team Providers Care Epic Ambulatory Analyst Name Role Phone Srinivasa Anderson MD Primary Care Provider [phone] Encounter Details Date Type Department Care Team (Late st Contact Info) Description 03/30/2004 Outpatient Historical [facility] Urology- [place] [address], 3rd [place] [address] Erasmo Rosas MD NO ADDRESS ON FILE OTHER SPEC DISORDER URINARY TRACT (Primary Dx) Social History Tobacco Use Types Packs/Day Years Used Date Smoking Tobacco: Never Assessed Sex and Gender Information Value Date Recorded Sex Assigned at Not on file Legal Sex Male 3:08 AM CAKE STRIPPER Gender Identity Not on file Sexual Orientation Not on file documented as of this encounter Plan of Treatment Not on file documented as of this encounter Visit Diagnoses Diagnosis Other specified disorders of urinary tract- Primary documented in this encounter Care Teams Epic Ambulatory Analyst Relationship Specialty Start Date End Date Srinivasa Anderson MD [address] [place] [address] PCP - General 07/18/04 documented as of this encounter
--- OUTSIDE RECORDS SUMMARY | 2024-11-06 12:56 | XMS_ITS | Encounter Summary ---
Author Organization [facility] Address [address] [place] [address] Care Team Providers Care Lumber Carrier Operator Name Role Phone Srinivasa Andersno MD Primary Care Provider Encounter Details Date Type Department Care Team (Late st Contact Info) Description 04/17/2007 Outpatient Historical [facility] [address] [place] [address] Srinivasa Anderson MD [address] [place] [address] Social History Tobacco Use Types Packs/Day Years Used Date Smoking Tobacco: Never Assessed Sex and Gender Information Value Date Recorded Sex Assigned at Not on file Legal Sex Male 3:08 AM ADMINISTRATIVE SUPPORT ASSOCIATE Gender Identity Not on file Sexual Orientation Not on file documented as of this encounter Plan of Treatment Not on file documented as of this encounter Visit Diagnoses Not on filedocumented in this encounter Care Teams Lumber Carrier Operator Relationship Specialty Start Date End Date Srinivasa Anderson MD [address] [place] [address] PCP - General 07/18/04 documented as of this encounter
--- OUTSIDE RECORDS SUMMARY | 2024-11-06 12:56 | XMS_ITS | Encounter Summary ---
Author Organization [facility] Address [address] [facility] [place] [address] Care Team Providers Care Special Education Tutor Name Role Phone Srinivasa Anderson MD Primary Care Provider [phone] Encounter Details Date Type Department Care Team (Late st Contact Info) Description 02/17/2001 Outpatient Historical [facility] Imaging Services-[place] [address] [place] [address] Yfn Hahn MD [address] [place] [address] COUGH (Primary Dx); RESPIRATORY ABNORM NEC Social History Tobacco Use Types Packs/Day Years Used Date Smoking Tobacco: Never Assessed Sex and Gender Information Value Date Recorded Sex Assigned at Not on file Legal Sex Male 3: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
--- OUTSIDE RECORDS SUMMARY | 2024-11-06 12:56 | XMS_ITS | Encounter Summary ---
Author Organization [facility] Address [address] [place] [address] Care Team Providers Care Physical Therapy Supervisor Name Role Phone Srinivasa Anderson MD Primary Care Provider [phone] Encounter Details Date Type Department Care Team (Latest Contact Info) Description 10/01/1997 Outpatient Historical [facility] [address] [address] [place] [address] Zoltan Mahoney MD NO ADDRESS ON FILE Actinic keratosis (Primary Dx); 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 Social History Tobacco Use Types Packs/Day Years Used Date Smoking Tobacco: Never Assessed Sex and Gender Information Value Date Recorded Sex Assigned at Not on file Legal Sex Male 3:08 AM SEAL SKINNER Gender Identity Not on file Sexual Orientation Not on file documented as of this encounter Plan of Treatment Not on file documented as of this encounter Visit Diagnoses Diagnosis Actinic keratosis- Primary 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
--- OUTSIDE RECORDS SUMMARY | 2024-11-06 12:56 | XMS_ITS | Encounter Summary ---
Author Organization [facility] Address [address] [facility] [place] [address] Care Team Providers Care Skatesman Name Role Phone Srinivasa Anderson MD Primary Care Provider [phone] Encounter Details Date Type Department Care Team (Latest Contact Info) Description 07/18/2004 Outpatient [facility] Gastroenterology- [place] [address] [address] [place] [address] Ar Stanton MD NO ADDRESS ON FILE FOLLOW-UP EXAM NOS (Primary Dx); PERS HX COLONIC POLYPS; Diverticulosis of colon; INT HEMORRHOID W/O COMPL Social History Tobacco Use Types Packs/Day Years Used Date Smoking Tobacco: Never Assessed Sex and Gender Information Value Date Recorded Sex Assigned at Not on file 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 Male 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 Gender Identity Not on file Sexual Orientation Not on file documented as of this encounter Plan of Treatment Not on file documented as of this encounter Visit Diagnoses Diagnosis Unspecified follow-up examination- Primary Personal history of colonic polyps Diverticulosis of colon Diverticulosis of colon (without mention of hemorrhage) Internal hemorrhoids without mention of complication documented in this encounter Care Teams Skatesman Relationship Specialty Start Date End Date Srinivasa Anderson MD [address] [place] [address] PCP - General 07/18/04 documented as of this encounter
--- OUTSIDE RECORDS SUMMARY | 2024-11-06 12:56 | XMS_ITS | Encounter Summary ---
Author Organization [facility] Address [address] [place] [address] Care Team Providers Care Labor And Delivery Registered Nurse Name Role Phone Srinivasa Anderson MD Primary Care Provider [phone] Encounter Details Date Type Department Care Team (Latest Contact Info) Description 02/15/2004 Outpatient Historical [facility] Imaging Services-Nilay Robles [place] [address] [place] [address] Mark Lux MD [address] [place] [address] HEMATURIA (Primary Dx) Social History Tobacco Use Types Packs/Day Years Used Date Smoking Tobacco: Never Assessed Sex and Gender Information Value Date Recorded Sex Assigned at Not on file 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
--- OUTSIDE RECORDS SUMMARY | 2024-11-06 12:56 | XMS_ITS | Encounter Summary ---
Author Organization [facility] Address [address] [place] [address] Care Team Providers Care Manager Sales Training Name Role Phone Srinivasa Anderson MD Primary Care Provider [phone] Encounter Details Date Type Department Care Team (Late st Contact Info) Description 10/21/2000 Outpatient Historical [facility] Yfn Hahn MD [address] [place], [place] [id number] Unspecified essential hypertension (Primary Dx); Other vitamin B12 deficiency anemia; Routine medical exam; Special screening for malignant neoplasm of prostate; Femoral vein phlebitis (CMS/HCC) Social History Tobacco Use Types Packs/Day Years Used Date Smoking Tobacco: Never Assessed Sex and Gender Information Value Date Recorded Sex Assigned at Not on file Legal Sex Male 3:08 AM 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
--- OUTSIDE RECORDS SUMMARY | 2024-11-06 12:56 | XMS_ITS | Encounter Summary ---
Author Organization [facility] Address [address] [facility] [place] [address] Care Team Providers Care Certified Surgical Tech/First Assistant Name Role Phone Srinivasa Anderson MD Primary Care Provider [phone] Encounter Details Date Type Department Care Team (Latest Contact Info) Description 06/28/2004 Outpatient Historical [facility] [place] [place] [address] Srinivasa Anderson MD [address] [place] [address] PULM EMBOLISM/INFARCT IATROGENIC (CMS/HCC) (Primary Dx); PERNICIOUS ANEMIA; Benign amado lg bowel; NOCTURIA Social History Tobacco Use Types Packs/Day Years Used Date Smoking Tobacco: Never Assessed Sex and Gender Information Value Date Recorded Sex Assigned at Not on file Legal Sex Male 3:08 AM PACK CHANGER Gender Identity Not on file Sexual Orientation Not on file documented as of this encounter Plan of Treatment Not on file documented as of this encounter Visit Diagnoses Diagnosis 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
--- OUTSIDE RECORDS SUMMARY | 2024-11-06 12:56 | XMS_ITS | Encounter Summary ---
Author Organization [facility] Address [address] [facility] [address] Care Team Providers Care Sheet Metal Supervisor Name Role Phone Srinivasa Anderson MD Primary Care Provider [phone] Encounter Details Date Type Department Care Team (Latest Contact Info) Description 04/05/2003 Outpatient Historical [facility] Imaging Services-Nilay Robles [place] [address] [place] [address] Mark Lux MD [address] [place] [address] ABDOMINAL PAIN EPIGASTRIC (Primary Dx) Social History Tobacco Use Types Packs/Day Years Used Date Smoking Tobacco: Never Assessed Sex and Gender Information Value Date Recorded Sex Assigned at Not on file Legal Sex Male 3:08 AM RN TRAUMA Gender Identity Not on file Sexual Orientation Not on file documented as of this encounter Plan of Treatment Not on file documented as of this encounter Visit Diagnoses Diagnosis Abdominal pain, epigastric- Primary documented in this encounter Care Teams Sheet Metal Supervisor Relationship Specialty Start Date End Date Srinivasa Anderson MD [address] [place] [address] PCP - General 07/18/04 documented as of this encounter
--- OUTSIDE RECORDS SUMMARY | 2024-11-06 12:56 | XMS_ITS | Encounter Summary ---
Author Organization [facility] Address [address] [facility] [place] [address] Care Team Providers Care Creative Strategist Name Role Phone Srinivasa Anderson MD Primary Care Provider [phone] Encounter Details Date Type Department Care Team (Late st Contact Info) Description 11/05/2000 Outpatient Historical [facility] Int [facility] [address] [place] [address] Yfn Hahn MD [address] [place] [address] Allergic rhinitis, cause unspecified (Primary Dx); Unspecified essential hypertension Social History Tobacco Use Types Packs/Day Years Used Date Smoking Tobacco: Never Assessed Sex and Gender Information Value Date Recorded Sex Assigned at Not on file 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
--- OUTSIDE RECORDS SUMMARY | 2024-11-06 12:56 | XMS_ITS | Encounter Summary ---
Author Organization [facility] Address [address] [facility] [place] [place] [address] Care Team Providers Care Millstone Cleaner Name Role Phone Srinivasa Anderson MD Primary Care Provider [phone] Encounter Details Date Type Department Care Team (Latest Contact Info) Description 10/03/2004 Outpatient [facility] [place] [place] [address] Srinivasa Anderson MD [address] [place] [address] HYPERTENSION NOS (Primary Dx); Plantar fibromatosis; OTHER MALAISE AND FATIGUE; Toxic effect venom Social History Tobacco Use Types Packs/Day Years Used Date Smoking Tobacco: Never Assessed Sex and Gender Information Value Date Recorded Sex Assigned at Not on file 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 Sex Male 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
--- OUTSIDE RECORDS SUMMARY | 2024-11-06 12:56 | XMS_ITS | Encounter Summary ---
Author Organization [facility] Address [address] [place] [address] Care Team Providers Care Leather Production Artisan Name Role Phone Srinivasa Anderson MD Primary Care Provider [phone] Encounter Details Date Type Department Care Team (Latest Contact Info) Description 11/30/2003 Outpatient Historical [facility] Dermatology- [facility] [address] [place] [address] Zoltan Mahoney MD NO ADDRESS ON FILE ACTINIC KERATOSIS (Primary Dx); Inflamed seborr keratos; SEBORRHEIC KERATOSIS NOS Social History Tobacco Use Types Packs/Day Years Used Date Smoking Tobacco: Never Assessed Sex and Gender Information Value Date Recorded Sex Assigned at Not on file 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
--- OUTSIDE RECORDS SUMMARY | 2024-11-06 12:56 | XMS_ITS | Encounter Summary ---
Author Organization [facility] Address [address] [place] [address] Care Team Providers Care Senior Sales Operations Manager Name Role Phone Srinivasa Anderson MD Primary Care Provider Encounter Details Date Type Department Care Team (Latest Contact Info) Description 11/06/2002 Outpatient Historical [facility] Int [facility] [place] [place] [address] Mark Lux MD [address] [place] [address] HYPERTENSION NOS (Primary Dx); Pure hypercholesterolem; OTHER MALAISE AND FATIGUE; VACCINE FOR STREP PNEUMONIAE Social History Tobacco Use Types Packs/Day Years Used Date Smoking Tobacco: Never Assessed Sex and Gender Information Value Date Recorded Sex Assigned at Not on file 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 Gender Identity Not on file Sexual Orientation Not on file documented as of this encounter Plan of Treatment Not on file documented as of this encounter Visit Diagnoses Diagnosis Unspecified essential hypertension- Primary Pure hypercholesterolem Pure hypercholesterolemia Other malaise and fatigue Need for prophylactic vaccination against Streptococcus pneumoniae (pneumococcus) Need for prophylactic vaccination against streptococcus pneumoniae (pneumococcus) documented in this encounter Care Teams Senior Sales Operations Manager Relationship Specialty Start Date End Date Srinivasa Anderson MD [address] [place] [address] PCP - General 07/18/04 documented as of this encounter
--- OUTSIDE RECORDS SUMMARY | 2024-11-06 12:56 | XMS_ITS | Encounter Summary ---
Author Organization [facility] Address [address] [facility] [address] Care Team Providers Care Driver Courier Name Role Phone Srinivasa Anderson MD Primary Care Provider [phone] Encounter Details Date Type Department Care Team (Latest Contact Info) Description 08/19/2001 Outpatient Historical [facility] Dermatology- [facility] [address] [place] [address] Zoltan Mahoney MD NO ADDRESS ON FILE Malig amado scalp/skin neck (Primary Dx); SEBORRHEIC KERATOSIS NOS Social History Tobacco Use Types Packs/Day Years Used Date Smoking Tobacco: Never Assessed Sex and Gender Information Value Date Recorded Sex Assigned at Not on file 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
--- OUTSIDE RECORDS SUMMARY | 2024-11-06 12:56 | XMS_ITS | Encounter Summary ---
Author Organization [facility] Address [address] [place] [address] Care Team Providers Care Steamboat Pilot Name Role Phone Srinivasa Anderson MD Primary Care Provider [phone] Encounter Details Date Type Department Care Team (Latest Contact Info) Description 05/07/2003 Outpatient Historical [facility] [place] [place] [address] Mark Lux MD [address] [place] [address] HYPERTENSION NOS (Primary Dx); Pure hypercholesterolem Social History Tobacco Use Types Packs/Day Years Used Date Smoking Tobacco: Never Assessed Sex and Gender Information Value Date Recorded Sex Assigned at Not on file Legal Sex Male 3:[address] Gender Identity Not on file Sexual Orientation Not on file documented as of this encounter Plan of Treatment Not on file documented as of this encounter Visit Diagnoses Diagnosis Unspecified essential hypertension- Primary Pure hypercholesterolem Pure hypercholesterolemia documented in this encounter Care Teams Steamboat Pilot Relationship Specialty Start Date End Date Srinivasa Anderson MD [address] [place] [address] PCP - General 07/18/04 documented as of this encounter
--- OUTSIDE RECORDS SUMMARY | 2024-11-06 12:56 | XMS_ITS | Encounter Summary ---
Author Organization [facility] Address [address] [facility] [place] [address] Care Team Providers Care Food And Beverage Director Name Role Phone Srinivasa Anderson MD Primary Care Provider [phone] Encounter Details Date Type Department Care Team (Latest Contact Info) Description 02/08/2004 Outpatient Historical [facility] Imaging Services-Nilay Robles Sharkey [address] [place] [address] Mark Lux MD [address] [place] [address] HEMATURIA (Primary Dx) Social History Tobacco Use Types Packs/Day Years Used Date Smoking Tobacco: Never Assessed Sex and Gender Information Value Date Recorded Sex Assigned at Not on file 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
--- OUTSIDE RECORDS SUMMARY | 2024-11-06 12:56 | XMS_ITS | Encounter Summary ---
Author Organization [facility] Address [address] [facility] [place] [address] Care Team Providers Care Professor Of Fine Art Name Role Phone Srinivasa Anderson MD Primary Care Provider [phone] Encounter Details Date Type Department Care Team (Latest Contact Info) Description 02/08/2004 Outpatient Historical [facility] [place] [place] [address] Mark Lux MD [address] [place] [address] HEMATURIA (Primary Dx); LUMBAGO; Vaccine for influenza Social History Tobacco Use Types Packs/Day Years Used Date Smoking Tobacco: Never Assessed Sex and Gender Information Value Date Recorded Sex Assigned at Not on file 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
--- OUTSIDE RECORDS SUMMARY | 2024-11-06 12:56 | XMS_ITS | Encounter Summary ---
Author Organization [facility] Address [address] [facility] [place] [address] Care Team Providers Care Concrete Batching Plant Operator Name Role Phone Srinivasa Anderson MD Primary Care Provider [phone] Encounter Details Date Type Department Care Team (Late st Contact Info) Description 02/17/2001 Outpatient -[address] [place] [address] Yfn Hahn MD [address] [place] [address] ACUTE BRONCHITIS (Primary Dx); THROMBOPHLEBITIS LEG NOS Social History Tobacco Use Types Packs/Day Years Used Date Smoking Tobacco: Never Assessed Sex and Gender Information Value Date Recorded Sex Assigned at Not on file 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
--- OUTSIDE RECORDS SUMMARY | 2024-11-06 12:56 | XMS_ITS | Encounter Summary ---
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 (Primary Dx); Other seborrheic keratosis Social History Tobacco Use Types Packs/Day Years Used Date Smoking Tobacco: Never Assessed Sex and Gender Information Value Date Recorded Sex Assigned at Not on file 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
--- OUTSIDE RECORDS SUMMARY | 2024-11-06 12:56 | XMS_ITS | Encounter Summary ---
Author Organization [facility] Address [address] [facility] [facility] [place] [place] [address] Care Team Providers Care Curator Herbarium Name Role Phone Srinivasa Anderson MD Primary Care Provider [phone] Encounter Details Date Type Department Care Team (Latest Contact Info) Description 03/25/2003 Outpatient Historical [facility] Derm[facility]- [facility] M[address] [place] [address] Zoltan Mahoney MD NO ADDRESS ON FILE ACTINIC KERATOSIS (Primary Dx); Inflamed seborr keratos; SEBORRHEIC KERATOSIS NOS Social History Tobacco Use Types Packs/Day Years Used Date Smoking Tobacco: Never Assessed Sex and Gender Information Value Date Recorded Sex Assigned at Not on file 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
--- OUTSIDE RECORDS SUMMARY | 2024-11-06 12:56 | XMS_ITS | Encounter Summary ---
Author Organization [facility] Address [address] [facility] [place] [address] Care Team Providers Care Christian Ministries Professor Name Role Phone Srinivasa Anderson MD Primary Care Provider [phone] Encounter Details Date Type Department Care Team (Latest Contact Info) Description 12/27/2004 Outpatient Historical [facility] [place] [place] [address] Srinivasa Anderson MD [address] [place] [address] TESTICULAR HYPOFUNC NEC (Primary Dx) Social History Tobacco Use Types Packs/Day Years Used Date Smoking Tobacco: Never Assessed Sex and Gender Information Value Date Recorded Sex Assigned at Not on file Legal Sex Male 3: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
--- OUTSIDE RECORDS SUMMARY | 2024-11-06 12:56 | XMS_ITS | Encounter Summary ---
Author Organization [facility] Address [address] [place] [address] Care Team Providers Care Burial Vault Maker Name Role Phone Srinivasa Anderson MD Primary Care Provider [phone] Encounter Details Date Type Department Care Team (Latest Contact Info) Description 09/01/2002 Outpatient Historical [facility] Imaging Services [address] 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
--- OUTSIDE RECORDS SUMMARY | 2024-11-06 12:56 | XMS_ITS | Encounter Summary ---
Author Organization [facility] Address [address] [facility] [place] [address] Care Team Providers Care Adobe Ball Mixer Name Role Phone Srinivasa Anderson MD Primary Care Provider [phone] Encounter Details Date Type Department Care Team (Latest Contact Info) Description 09/23/2002 Outpatient [facility] [address] [place] [address] Zoltan Mahoney MD NO ADDRESS ON FILE ACTINIC KERATOSIS (Primary Dx); MALIG NEOPLASM SKIN FACE NEC; Inflamed seborr keratos Social History Tobacco Use Types Packs/Day Years Used Date Smoking Tobacco: Never Assessed Sex and Gender Information Value Date Recorded Sex Assigned at Not on file 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 Sex Male 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
--- OUTSIDE RECORDS SUMMARY | 2024-11-06 12:56 | XMS_ITS | Encounter Summary ---
Author Organization [facility] Address [address] [facility] [place] [address] Care Team Providers Care Tester Sound Name Role Phone Srinivasa Anderson MD Primary Care Provider [phone] Encounter Details Date Type Department Care Team (Latest Contact Info) Description 10/24/2001 Outpatient Historical [facility] [place] [place] [address] Mark Lux MD [address] [place] [address] HYPERTENSION NOS (Primary Dx); Pure hypercholesterolem; OSTEOARTHROS NOS-UNSPEC Social History Tobacco Use Types Packs/Day Years Used Date Smoking Tobacco: Never Assessed Sex and Gender Information Value Date Recorded Sex Assigned at Not on file 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
--- OUTSIDE RECORDS SUMMARY | 2024-11-06 12:56 | XMS_ITS | Encounter Summary ---
Author Organization [facility] Address [address] [place] [address] Care Team Providers Care Oim Architect Name Role Phone Srinivasa Anderson MD Primary Care Provider [phone] Encounter Details Date Type Department Care Team (Latest Contact Info) Description 11/10/2003 Outpatient Historical [facility] Imaging Services-Nilay Robles [place] [address] [place] [address] Mark Lux MD [address] [place] [address] HYPERTENSION NOS (Primary Dx) Social History Tobacco Use Types Packs/Day Years Used Date Smoking Tobacco: Never Assessed Sex and Gender Information Value Date Recorded Sex Assigned at Not on file 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
--- OUTSIDE RECORDS SUMMARY | 2024-11-06 12:56 | XMS_ITS | Encounter Summary ---
Author Organization [facility] Address [address] [facility] [place] [address] Care Team Providers Care Armature Inspector Name Role Phone Srinivasa Anderson MD Primary Care Provider [phone] Encounter Details Date Type Department Care Team (Latest Contact Info) Description 09/08/2002 Outpatient Historical [facility] Robbi Post MD [address] [facility] [place] [phone] Spondylolisthesis (Primary Dx); JOINT PAIN-PELVIS; LUMBAGO Social History Tobacco Use Types Packs/Day Years Used Date Smoking Tobacco: Never Assessed Sex and Gender Information Value Date Recorded Sex Assigned at Not on file 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
--- OUTSIDE RECORDS SUMMARY | 2024-11-06 12:56 | XMS_ITS | Encounter Summary ---
Author Organization [facility] Address [address] [place] [place] [address] Care Team Providers Care Oil Well Engineer Name Role Phone Srinivasa Anderson MD Primary Care Provider [phone] Encounter Details Date Type Department Care Team (Late st Contact Info) Description 05/15/2007 Outpatient [facility] [place] [place] [address] Srinivasa Anderosn MD [address] [place] [address] Social History Tobacco Use Types Packs/Day Years Used Date Smoking Tobacco: Never Assessed Sex and Gender Information Value Date Recorded Sex Assigned at Not on file 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
--- OUTSIDE RECORDS SUMMARY | 2024-11-06 12:56 | XMS_ITS | Encounter Summary ---
Author Organization [facility] Address [address] [place] [place] [address] Care Team Providers Care Labor Gang Supervisor Name Role Phone Srinivasa Anderson MD Primary Care Provider [phone] Encounter Details Date Type Department Care Team (Latest Contact Info) Description 10/26/2004 Outpatient Historical [facility] Dermatology- [facility] Marek [address] [place] [address] Zoltan Mahoney MD NO ADDRESS ON FILE Malig amado skin arm (Primary Dx); ACTINIC KERATOSIS; Inflamed seborr keratos; SEBORRHEIC KERATOSIS NOS Social History Tobacco Use Types Packs/Day Years Used Date Smoking Tobacco: Never Assessed Sex and Gender Information Value Date Recorded Sex Assigned at Not on file 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 Gender Identity Not on file Sexual Orientation Not on file documented as of this encounter Plan of Treatment Not on file documented as of this encounter Visit Diagnoses Diagnosis Malig amado skin arm- Primary 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
--- OUTSIDE RECORDS SUMMARY | 2024-11-06 12:56 | XMS_ITS | Encounter Summary ---
Author Organization [facility] Address [address] [place] [address] Care Team Providers Care Casino Cashier Manager Name Role Phone Srinivasa Anderson MD Primary Care Provider [phone] Encounter Details Date Type Department Care Team (Latest Contact Info) Description 10/26/2004 Outpatient Historical [facility] [place]-[address] [place] [address] Srinivasa Anderson MD [address] [place] [address] TESTICULAR HYPOFUNC NEC (Primary Dx) Social History Tobacco Use Types Packs/Day Years Used Date Smoking Tobacco: Never Assessed Sex and Gender Information Value Date Recorded Sex Assigned at Not on file Legal Sex Male 3:08 AM PLEATER Gender Identity Not on file Sexual Orientation Not on file documented as of this encounter Plan of Treatment Not on file documented as of this encounter Visit Diagnoses Diagnosis Other testicular hypofunction- Primary documented in this encounter Care Teams Casino Cashier Manager Relationship Specialty Start Date End Date Srinivasa Anderson MD [address] [place] [address] PCP - General 07/18/04 documented as of this encounter
--- OUTSIDE RECORDS SUMMARY | 2024-11-06 12:56 | XMS_ITS | Encounter Summary ---
Author Organization [facility] Address [address] Kenny: Epic Prelude [place]T [place] [address] Care Team Providers Care Emergency Medical Service Coordinator Name Role Phone Srinivasa Anderson MD Primary Care Provider [phone] Encounter Details Date Type Department Care Team (Late st Contact Info) Description 08/20/2001 Outpatient Historical Zoltan Mahoney MD NO ADDRESS ON FILE Social History Tobacco Use Types Packs/Day Years Used Date Smoking Tobacco: Never Assessed Sex and Gender Information Value Date Recorded Sex Assigned at Not on file Legal Sex Male 3:08 AM PATHOLOGY TRANSCRIPTIONIST Gender Identity Not on file Sexual Orientation Not on file documented as of this encounter Plan of Treatment Not on file documented as of this encounter Visit Diagnoses Not on filedocumented in this encounter Care Teams Emergency Medical Service Coordinator Relationship Specialty Start Date End Date Srinivasa Anderson MD [address] [facility] [address] [place] [address] PCP - General 07/18/04 documented as of this encounter
--- OUTSIDE RECORDS SUMMARY | 2024-11-06 12:56 | XMS_ITS | Encounter Summary ---
Author Organization [facility] Address [address] [place] [address] Care Team Providers Care Poultry Husbandman Name Role Phone Srinivasa Anderson MD Primary Care Provider [phone] Encounter Details Date Type Department Care Team (Latest Contact Info) Description 02/17/2004 Outpatient Historical [facility] Imaging Services-Nilay Gantaway [address] [place] [address] Mark Lux MD [address] [place] [address] ABNORMAL FINDINGS- ORGANS (Primary Dx) Social History Tobacco Use Types Packs/Day Years Used Date Smoking Tobacco: Never Assessed Sex and Gender Information Value Date Recorded Sex Assigned at Not on file Legal Sex Male 3:08 AM 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
--- OUTSIDE RECORDS SUMMARY | 2024-11-06 12:56 | XMS_ITS | Clinical Summary ---
Author Organization [facility] Address [address] [place] [address] Phone Care Team Providers Care Cloth Handler Name Role Phone Srinivasa Anderson MD Primary Care Provider [phone] Allergies No known active allergies Medications Syringe [...] 3 Active fluticasone propionate (FLONASE) 50 mcg/spray [place], Suspension nasal inhaler 1 SPRAY EACH NOSTRIL [...] Type Department Care Team Description 10/30/2024 Telephone [facility] Eve Cannon-Mohit [address] [place] [address] Srinivasa Anderson MD Needs Orders Written 10/27/2024 External Device Data STL ABSTRACTION Provider, Abstract 10/12/2024 Orders Only [facility] Scopis Denton [address] [place] [address] Provider, Abstract 09/29/2024 External Device Data STL ABSTRACTION Provider, Abstract 09/15/2024 Orders Only [facility] Scopis Denton [address] [place] [address] Provider, Abstract 09/10/2024 External Device Data STL ABSTRACTION Provider, Abstract 09/07/2024 1:00 PM CDT Video Visit [facility] Eve Cannon-Mohit [address] [place] [address] Srinivasa Anderson MD Rheumatoid arthritis, involving unspecified site, unspecified whether rheumatoid factor present (CMS/HCC) (Primary Dx); Persistent atrial fibrillation ([facility]); Type 2 diabetes mellitus without complication, without long-term current use of insulin ([facility]); Pulmonary emphysema, unspecified emphysema type ([facility]); Lupus erythematosus overlap syndrome ([facility]); S/P placement of leadless cardiac pacemaker; Acute on chronic combined systolic and diastolic congestive heart failure ([facility]); Type 2 diabetes mellitus with diabetic polyneuropathy, without long-term current use of insulin ([facility]); Stage 3a chronic kidney disease ([facility]) 09/07/2024 Telephone [facility] Marek-Mohit [address] [facility] [address] [place] [address] Srinivasa Anderson MD Primary Care Outreach 09/07/2024 Telephone [facility] Overhead[facility]fmnn Cannon-Mohit [address] [address] Srinivasa Anderson MD Appointment Notification 08/25/2024 External Device Data STL ABSTRACTION Provider, Abstract 08/20/2024 1:00 PM CDT Office Visit [place] [address] [place] [address] Nubia Ewing FNP S/P TAVR (transcatheter aortic valve replacement) (Primary Dx) 08/20/2024 Telephone [place] [address] [place] [address] Master Brown, RN Information 08/19/[address] [facility] [address] [place] [phone] Master Brown, RN Follow Up 08/10/2024 Refill [facility] Overhead[facility]nn Cannon-[address]it [address] [phone] Srinivasa Anderson MD from Last 3 Months Immunizations Immunization Administration [...] on file Legal Sex Male 6:28 AM RENT CONTROL OFFICE MANAGER Gender Identity Not on file Sexual [...] 11/20/2024 9:20 AM CDT Office Visit [facility] [address] [place] [address] Giana Fowler FNP [address] [place] [address] 12/25/2024 1:30 PM CDT Office Visit [facility] Marek-Mohit [address] [place] [address] Srinivasa Anderson MD [address] [place] [address] 03/04/2025 11:00 AM RENT CONTROL OFFICE MANAGER Office Visit [facility] [address] [place] [address] Kodak Samuel MD [address] [place] [address] 03/11/2025 1:00 PM RENT CONTROL OFFICE MANAGER Office Visit [facility] [address] [place] [address] Mariela Stone MD [address] [place] [address] Kay Bennett NP NO ADDRESS [...] 05/01/2021, 09/03/2019, Additional history exists COVID-19 Vaccine ( - 2023-2 5 season) 2023 11/08/2020, 07/15/2020 Traditional Medicare (ACO) A nnual Wellness Visit 06/13/2024 06/12/2023 INFLUENZA VACCINE (#1) 2024 4, 03/25/2023, 02/08/2022, Additional history exists DIABETES HBA1C Q 6 MONTHS 02/02/20252024, 12/18/2023, 11/28/2022, Additional history exists DIABETES: A1C (Auto Order) 08/03/202508/03, 12/18/2023, 11/28/2022, Additional history exists LDL CHOLESTEROL ANNUAL 08/03/2025 5, 11/09/2019, 10/09/2018, Additional history exists COLORECTAL SCREENING 12/01/2027 11/30/2022, 11/30/2022, 08/12/2009 DTAP/TDAP/TD VACCINES (3 - T d or Tdap) 06/02/2032 06/02/2022, 05/25/2008 PNEUMOCOCCAL VACCINE 50+ YEARS Completed 0 01/12/2020, 01/12/2020, 06/03/2014, Additional history exists Medical Devices Implanted Type Area Recruiting Manager Device Identifier Shelf Expiration Date Model / Serial / Lot Dev Naomi Closure 35mm Watchman Flx [id number] - [id number] Implanted:Qty : 1 on 08/13/2022 at [facility] Cardiovascular Device N/A: Heart [employer] 10/25/2023 [id number] 350 / [id number] / [id number] Mitraclip G4 Dlvry Sys Ntw No Chrg [id number] - [id number] Implanted:Qty : 1 on 02/18/2023 at [facility] Cardiovascular Device Right: Heart [employer] 08/22/2023 [id number] / [id number] / [id number] Closure Perclose Prostyle Sut Mediate 12418-19 - [id number] Implanted:Qty : 1 on 08/13/2022 by Jaden Vital MD at [facility] Closure Device Right: Groin [employer]- VASC DEVICE 04/21/2024 [id number] / / [id number] Dev Manta Vasc Closure 18fr 2114 [id number] Implanted:Qty : 1 on 10/30/2022 at [facility] Closure Device Right: Groin [employer] 04/05/2023 [id number] / / [id number] Dev Sealangio Vip 8fr [id number] - [id number] Implanted:Qty : 1 on 10/30/2022 at [facility] Closure Device Left: Groin [facility] 11/19/2022 [id number] / / [id number] Closure Perclose Prostyle Sut Mediate 39465-50 - [id number] Implanted:Qty : 1 on 02/18/2023 at [facility] Closure Device Right: Groin [employer] VASC DEV[employer] 10/19/2024 39159-65 / / [id number] Closure Perclose Prostyle Sut Mediate 96966-95 - [id number] Implanted:Qty : 1 on 02/18/2023 at [facility] Closure Device Right: Groin [employer]- VASC DEV[employer] 10/19/2024 14237-19 / / [id number] Lens Io Tecnis 1pc 22.0 [id number] - [id number] Implanted:Qty : 1 on 08/23/2016 by Dominic Peralta MD Eye Left: Eye [employer] 10/20/2019 [id number] 20 / [id number] / Lens Io Tecnis 1pc 22.5 [id number] - [id number] Implanted:Qty : 1 on 09/06/2016 by Dominic Peralta MD Eye Right: Eye [employer] 12/19/2019 [id number] / [id number] / Mesh Plug Perfix Xlg [id number] - [id number] Implanted:Qty : 1 on 08/13/2023 by Franci Kaplan Jr., MD at [facility] Mesh Left: Abdomen BARD [employer] [id number] 01/18/2028 [id number] / / [id number] Pacemaker Micra Vr 23fr 105cm Transcath Pacing Sys [id number] - [id number] Implanted:Qty : 1 on 10/30/2022 by Mariela Stone MD at [facility] Pacemaker Heart [employer] 01/04/2024 [id number] S / [id number] / Vlv Aort Evolut Fx Tavr 34mm Evolutfx-34 - [id number] Implanted:Qty : 1 on 10/30/2022 at [facility] Valve N/A: Heart [employer]- HEART VALVE 06/07/2024 EVOLUTFX -34 / [id number] / Dlvry Sys Evolut Fx 34mm Y-Dhsznsom-13 - S\E\240d-Evol utfx-34 Implanted:Qty : 1 on 10/30/2022 at [facility] Valve N/A: Heart [employer]- HEART VALVE 02/02/2024 D-EVOLUT FX-34 / \E\240D- EVOLUTFX -34 / [id number] Leadless Ppm Procedures Procedure Name Priority Date/Time Associated Diagnosis Comments COMPREHENSIVE METABOLIC PANEL Routine 10/05/2024 9:58 AM CDT COMPREHENSIVE METABOLIC PANEL Routine 09/02/2024 9:11 AM CDT LIPID PANEL Routine 08/03/2024 11:38 AM CDT Mixed hyperlipidemia HEMOGLOBIN A1C Routine 08/03/2024 11:38 AM CDT Type 2 diabetes mellitus without complication, without long-term current use of insulin ([facility]) COLONOSCOPY REPORT 11/30/2022 11 :16 AM CDT HM DIABETES EYE EXAM Routine 07/16/2022 10:57 AM CDT MICROALBUMIN/CREATINI NE RATIO, RANDOM UR Routine 11/09/2019 9:43 AM CDT from Last 3 Months or Most Recently Relevant to Health Maintenance Results * COMPREHENSIVE METABOLIC PANEL (10/05/2024 9:58 AM CDT) Only the most recent of2 resultswithin the time period is included. Blood us Abstract Provider CHEMISTRY ORDERABLES Final Res ult * (ABNORMAL) HEMOGLOBIN A1C (08/03/2024 11:38 AM CDT) HEMOGLOBIN A1C 6.2(H) <5.7 % [facility] Comment: For someone without known diabetes, [...] Comment: FASTING:YES FASTING: YES Test Performed at: [facility] [address] [address] Arminda Velasco MD Blood 08/03/2024 11:3 8 AM CDT 08/03/2024 11:38 AM CDT us Srinivasa Anderson MD CHEMISTRY ORDERABLES Final Resul t Performing Organization Address City/[facility]/ZIP Co de Phone Number [facility] [phone] [facility] [address] [address] [facility] [place] [address] * (ABNORMAL) LIPID PANEL (08/03/2024 11:38 AM CDT) CHOLESTEROL 133 <200 mg/dL [facility] HDL 36(L) > OR = 40 mg/dL [facility] TRIGLYCERIDE 71 <150 mg/dL [facility] LDL CALCULATED 82 mg/dL (calc) [facility] Comment: Reference range: <100 Desirable range <100 mg/dL for primary prevention; <70 mg/dL for patients with CHD or diabetic patients with > or = 2 CHD risk factors. LDL-C is now calculated using the Celine calculation, which is a validated novel method providing better accuracy than the Friedewald equation in the estimation of LDL-C. Wilber HOOD et al. MAGDA. 2013;310(19): 1583-6213 (http://education.Askablogr/faq/RUG340) CHOL/HDL RATIO 3.7 <5.0 (calc) [facility] NON-HDL CHOLESTEROL 97 <130 mg/dL (calc) [facility] Comment: For patients with diabetes plus 1 major ASCVD risk factor, treating to a non-HDL-C goal of <100 mg/dL (LDL-C of <70 mg/dL) is considered a therapeutic option. Test Performed at: [facility] [address] [place] [address] Александр Oviedo Blood 08/03/2024 11:3 8 AM CDT 08/03/2024 11:38 AM CDT us Srinivasa Anderson MD CHEMISTRY ORDERABLES Final Resul t [facility] [phone] [facility] [address] [place] [address] * COLONOSCOPY REPORT (11/30/2022 11:16 AM CDT) Narrative Procedure Note Herman Schmitz MD - 11/30/2022 11:16 AM CDT [facility] GI Patient Name: Franci Hernandez Procedure [...] bowel preparation was evaluated using the BBPS ([place] Bowel Preparation Scale) with scores of: Right [...] AM Scope Out: 11:13:34 AM [address] [place], [place] Herman Schmitz MD GI PROCEDURE ORDERABLES Final Result * DIABETES EYE EXAM (07/16/2022 10:57 AM CDT) Abstract Provider HEALTH MAINTENANCE Final Resul t * (ABNORMAL) MICROALBUMIN/CREATININE RATIO, RANDOM UR (11/09/2019 9:43 AM CDT) MICROALBUMIN, URINE 5.3 No Reference Range mg/dL 11/09/2019 9:33 PM T [facility] CREATININE, URINE 139.7 40.0 - 278.0 mg/dL 11/09/2019 9:33 PM T [facility] Comment:Reference Range vari es with fluid intake and diet. MICROALBUMIN/ CREAT RATIO, UR 37.9(H) <17.0 mg/g 11/09/2019 9:33 PM T [facility] Urine URINE SPECIMEN OBTAINED BY CLEAN CATCH PROCEDURE / Unknown Collection / Unknown 11/09/2019 9:43 AM CDT 11/09/2019 8:19 PM CDT Narrative [facility] - 11/09/2019 9:33 PM CDT Condition Microalbumin/Creat ratio Normal Males <17 Normal Females <25 Microalbuminuria Males 17-299 Microalbuminuria Females 25-299 Overt proteinuria >=300 Srinivasa Anderson MD URINE ORDERABLES Final Result [facility] CLIA# [id number] [address] [address] [id number] from Last 3 Months or Most Recently Relevant to Health Maintenance Insurance [address] [place] [address] [facility] [id number] MEDICARE PART A AND B * Guarantor: FRANCI HERNANDEZ Account Type Relation to Patient Date of Phone Billing Address Personal/Family [address] [place] [address] [facility] DATA Medicare Part B RX [employer] PLANS (INTERNAL) [facility] Internal Plans RX [employer] Medicare Part D Advance Directives For more information, please contact: [phone] * Full Code (Latest Code Status on [...] 5:53 PM 01/29/2023 5:47 PM Care Teams Cloth Handler Relationship Specialty Start Date End Date Srinivasa Anderson MD [address] [address] PCP - General Family Practice 05/18/24
--- OUTSIDE RECORDS SUMMARY | 2024-11-06 12:56 | XMS_ITS | Encounter Summary ---
Author Organization [facility] Address [address] [facility] [place] [address] Care Team Providers Care Director Of Restaurant Name Role Phone Srinivasa Anderson MD Primary Care Provider [phone] Encounter Details Date Type Department Care Team (Latest Contact Info) Description 12/02/2001 Outpatient [facility] Mckenna-Mohit [address] [place] [address] Mark Lux MD [address] [place] [address] Pure hypercholesterolem (Primary Dx); HYPERTENSION NOS Social History Tobacco Use Types Packs/Day Years Used Date Smoking Tobacco: Never Assessed Sex and Gender Information Value Date Recorded Sex Assigned at Not on file Legal Sex Male 3:08 AM BUILDING AND CONSTRUCTION MANAGER Gender Identity Not on file Sexual Orientation Not on file documented as of this encounter Plan of Treatment Not on file documented as of this encounter Visit Diagnoses Diagnosis Pure hypercholesterolem- Primary Pure hypercholesterolemia Unspecified essential hypertension documented in this encounter Care Teams Director Of Restaurant Relationship Specialty Start Date End Date Srinivasa Anderson MD [address] [place] [address] PCP - General 07/18/04 documented as of this encounter
--- OUTSIDE RECORDS SUMMARY | 2024-11-06 12:56 | XMS_ITS | Encounter Summary ---
Author Organization [facility] Address [address] [place] [address] Care Team Providers Care Electric Meter Reader Name Role Phone Srinivasa Anderson MD Primary Care Provider [phone] Encounter Details Date Type Department Care Team (Latest Contact Info) Description 05/08/2001 Outpatient Historical [facility] Int [facility] Cato[address] [place] [address] Mark Lux MD [address] [place] [address] HYPERTENSION NOS (Primary Dx); AFTERCARE PROGRESS MAN ANTICOAG USE; PULM EMBOLISM/INFARCT IATROGENIC (CMS/HCC) Social History Tobacco Use Types Packs/Day Years Used Date Smoking Tobacco: Never Assessed Sex and Gender Information Value Date Recorded Sex Assigned at Not on file Legal Sex Male 3:08 AM 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 SLICING MACHINE OPERATOR Gender Identity Not on file Sexual Orientation Not on file documented as of this encounter Plan of Treatment Not on file documented as of this encounter Visit Diagnoses Diagnosis Unspecified essential hypertension- Primary halfway (current) use of anticoagulants Long-term (current) use of anticoagulants 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
--- OUTSIDE RECORDS SUMMARY | 2024-11-06 12:56 | XMS_ITS | Encounter Summary ---
Author Organization [facility] Address [address] [facility] [place] [address] Care Team Providers Care Electrical Controls Technician Name Role Phone Srinivasa Anderson MD Primary Care Provider [phone] Encounter Details Date Type Department Care Team (Latest Contact Info) Description 10/14/2001 Outpatient Historical [facility] Imaging Services-[facility]ay Robles [place] [address] [place] [address] Mark Lux MD [address] [place] [address] HYPERTENSION NOS (Primary Dx) Social History Tobacco Use Types Packs/Day Years Used Date Smoking Tobacco: Never Assessed Sex and Gender Information Value Date Recorded Sex Assigned at Not on file Legal Sex Male 3:08 AM LAY OUT MACHINE OPERATOR Gender Identity Not on file Sexual Orientation Not on file documented as of this encounter Plan of Treatment Not on file documented as of this encounter Visit Diagnoses Diagnosis Unspecified essential hypertension- Primary documented in this encounter Care Teams Electrical Controls Technician Relationship Specialty Start Date End Date Srinivasa Anderson MD [address] [place] [address] PCP - General 07/18/04 documented as of this encounter
--- OUTSIDE RECORDS SUMMARY | 2024-11-06 12:56 | XMS_ITS | Encounter Summary ---
Author Organization [facility] Address [address] [facility] [place] [address] Care Team Providers Care Granulator Operator Name Role Phone Srinivasa Anderson MD Primary Care Provider [phone] Encounter Details Date Type Department Care Team (Latest Contact Info) Description 05/30/1998 Outpatient Historical [facility] Derm[facility]- [facility] Marek [address] [place] [address] Zoltan Mahoney MD NO ADDRESS ON FILE Other seborrheic keratosis (Primary Dx) Social History Tobacco Use Types Packs/Day Years Used Date Smoking Tobacco: Never Assessed Sex and Gender Information Value Date Recorded Sex Assigned at Not on file Legal Sex Male 3:08 AM TAPPER SUPERVISOR Gender Identity Not on file Sexual Orientation Not on file documented as of this encounter Plan of Treatment Not on file documented as of this encounter Visit Diagnoses Diagnosis Other seborrheic keratosis- Primary documented in this encounter Care Teams Granulator Operator Relationship Specialty Start Date End Date Srinivasa Anderson MD [address] [place] [address] PCP - General 07/18/04 documented as of this encounter
--- OUTSIDE RECORDS SUMMARY | 2024-11-06 12:56 | XMS_ITS | Encounter Summary ---
Author Organization [facility] Address [address] [place] [address] Care Team Providers Care Reservoir Caretaker Name Role Phone Srinivasa Anderson MD Primary Care Provider [phone] Encounter Details Date Type Department Care Team (Latest Contact Info) Description 09/23/2002 Outpatient Historical [facility] Dermatology- [facility] Marek [address] [place] [address] Zoltan Mahoney MD NO ADDRESS ON FILE MALIG NEOPLASM SKIN EAR (Primary Dx) Social History Tobacco Use Types Packs/Day Years Used Date Smoking Tobacco: Never Assessed Sex and Gender Information Value Date Recorded Sex Assigned at Not on file Legal Sex Male 3:08 AM HONING MACHINE SET UP OPERATOR Gender Identity Not on file Sexual Orientation Not on file documented as of this encounter Plan of Treatment Not on file documented as of this encounter Visit Diagnoses Diagnosis 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
--- OUTSIDE RECORDS SUMMARY | 2024-11-06 12:56 | XMS_ITS | Encounter Summary ---
Author Organization [facility] Address [address] [place] [address] Care Team Providers Care Telegraphic Service Dispatcher Name Role Phone Srinivasa Anderson MD Primary Care Provider [phone] Encounter Details Date Type Department Care Team (Latest Contact Info) Description 01/17/2005 Outpatient Historical [facility] Podiatry-Nilay Robles Marek [address] [place] [address] Juma Eng, DPM [address] [place] [address] GANGLION OF JOINT (Primary Dx); BUNION; EXOSTOSIS, SITE NOS Social History Tobacco Use Types Packs/Day Years Used Date Smoking Tobacco: Never Assessed Sex and Gender Information Value Date Recorded Sex Assigned at Not on file Legal Sex Male 3: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
--- OUTSIDE RECORDS SUMMARY | 2024-11-06 12:56 | XMS_ITS | Encounter Summary ---
Author Organization [facility] Address [address] 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
--- OUTSIDE RECORDS SUMMARY | 2024-11-06 12:56 | XMS_ITS ---
Author Organization [facility] Address [address] [place] [address] Phone Care Team Providers Care Store Leader Name Role Phone Srinivasa Anderson MD Primary Care Provider [phone] Active Problems Problem Noted Date Diagnosed Date [...]
--- OUTSIDE RECORDS SUMMARY | 2024-11-06 12:56 | XMS_ITS | Encounter Summary ---
Author Organization [facility] Address [address] [place] [address] Care Team Providers Care Forms Examiner Name Role Phone Srinivasa Anderson MD Primary Care Provider [phone] Encounter Details Date Type Department Care Team (Latest Contact Info) Description 07/18/2004 Outpatient Historical [facility] [place] [address] [facility] [address] [place] [address] Ar Stanton MD NO ADDRESS ON FILE INT HEMORRHOID W/O COMPL (Primary Dx) Social History Tobacco Use Types Packs/Day Years Used Date Smoking Tobacco: Never Assessed Sex and Gender Information Value Date Recorded Sex Assigned at Not on file 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
--- OUTSIDE RECORDS SUMMARY | 2024-11-06 12:56 | XMS_ITS | Encounter Summary ---
Author Organization [facility] Address [address] [place] [address] Care Team Providers Care Bender Hand Name Role Phone Srinivasa Anderson MD Primary Care Provider [phone] Encounter Details Date Type Department Care Team (Latest Contact Info) Description 04/25/2004 Outpatient Historical [facility] [place] [place] [address] Srinivasa Anderson MD [address] [place] [address] PULM EMBOLISM/INFARCT NOS (CMS/HCC) (Primary Dx); HYPERTENSION NOS Social History Tobacco Use Types Packs/Day Years Used Date Smoking Tobacco: Never Assessed Sex and Gender Information Value Date Recorded Sex Assigned at Not on file 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
--- OUTSIDE RECORDS SUMMARY | 2024-11-06 12:56 | XMS_ITS | Encounter Summary ---
Author Organization [facility] Address [address] [facility] [place] [address] Care Team Providers Care Wood Club Neck Whipper Name Role Phone Srinivasa Anderson MD Primary Care Provider [phone] Encounter Details Date Type Department Care Team (Latest Contact Info) Description 03/20/2007 Outpatient Historical [facility] [place] [place] [address] Srinivasa Anderson MD [address] [place] [address] Other Testicular Hypofunction (Primary Dx) Social History Tobacco Use Types Packs/Day Years Used Date Smoking Tobacco: Never Assessed Sex and Gender Information Value Date Recorded Sex Assigned at Not on file Legal Sex Male 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
--- OUTSIDE RECORDS SUMMARY | 2024-11-06 12:56 | XMS_ITS | Encounter Summary ---
Author Organization [facility] Address [address] [facility] [address] Care Team Providers Care Hadoop Developer Name Role Phone Srinivasa Anderson MD Primary Care Provider [phone] Encounter Details Date Type Department Care Team (Latest Contact Info) Description 11/06/2002 Outpatient Historical [facility] Imaging Services-Nilay Robles Hodgeman [address] [place] [address] Mark Lux MD [address] [place] [address] HYPERTENSION NOS (Primary Dx) Social History Tobacco Use Types Packs/Day Years Used Date Smoking Tobacco: Never Assessed Sex and Gender Information Value Date Recorded Sex Assigned at Not on file 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
--- OUTSIDE RECORDS SUMMARY | 2024-11-06 12:56 | XMS_ITS | Encounter Summary ---
Author Organization [facility] Address [address] [facility] [place] [address] Care Team Providers Care Account Executive Metalworking Name Role Phone Srinivasa Anderson MD Primary Care Provider Encounter Details Date Type Department Care Team (Latest Contact Info) Description 01/26/2005 Outpatient Historical [facility] [place] [place] [address] Srinivasa Anderson MD [address] [place] [address] ANXIETY STATE NOS (Primary Dx); IMPOTENCE, ORGANIC ORIGN; MALAISE AND FATIGUE NEC; TESTICULAR HYPOFUNC NEC Social History Tobacco Use Types Packs/Day Years Used Date Smoking Tobacco: Never Assessed Sex and Gender Information Value Date Recorded Sex Assigned at Not on file 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
--- OUTSIDE RECORDS SUMMARY | 2024-11-06 12:56 | XMS_ITS | Encounter Summary ---
Author Organization [facility] Address [address] [facility] [place] [address] Care Team Providers Care Muffler Tender Name Role Phone Srinivasa Anderson MD Primary Care Provider [phone] Encounter Details Date Type Department Care Team (Latest Contact Info) Description 11/24/2004 Outpatient Historical [facility] [place] [place] [address] Srinivasa Anderson MD [address] [place] [address] TESTICULAR HYPOFUNC NEC (Primary Dx) Social History Tobacco Use Types Packs/Day Years Used Date Smoking Tobacco: Never Assessed Sex and Gender Information Value Date Recorded Sex Assigned at Not on file 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
--- OUTSIDE RECORDS SUMMARY | 2024-11-06 12:56 | XMS_ITS | Clinical Summary ---
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 Gender Identity Not on file Sexual Orientation Not on file Occupation Industry Job Start Date Job End Date Not on file Not on file Not on file Not on file Last Filed Vital Signs Vital Sign Reading Time Taken Comments Blood Pressure 118/84 06/23/2020 11:43 AM INSULATION BOARD BACK TENDER Pulse 60 06/23/2020 11:43 AM INSULATION BOARD BACK TENDER Temperature 36.4 C (97.6 F) 02/19/2020 3:25 PM CDT Respiratory Rate 16 02/19/2020 3:25 PM CDT Oxygen Saturation 99% 06/23/2020 11:43 AM INSULATION BOARD BACK TENDER Inhaled Oxygen Concentration - - Weight 78.5 kg (173 lb) 06/23/2020 11:43 AM INSULATION BOARD BACK TENDER Height 191.8 cm (6' 3.5 ) 06/23/2020 11:43 AM CS T Body Mass Index 21.34 06/23/2020 11:43 AM INSULATION BOARD BACK TENDER Plan of Treatment Health Maintenance Due Date [...] history exists Medical Devices Implanted Type Area Gold Charmer Device Identifier Shelf Expiration Date Model / Serial / Lot Lens Io Tecnis 1pc 22.0 [id number] - [id number] Implanted:Qty: 1 on 08/23/2016 by Dominic Peralta MD at [facility] Left: Eye [employer] 10/20/2019 [id number] / [id number] / Lens Io Tecnis 1pc 22.5 [id number] - [id number] Implanted:Qty: 1 on 09/06/2016 by Dominic Peralta MD at [facility] Right: Eye [employer] 12/19/2019 [id number] / [id number] / Procedures Procedure Name Priority Date/Time Associated Diagnosis Comments MICROALBUMIN/CREATI NINE RATIO, RANDOM UR Routine 11/09/2019 9:43 AM CDT Diabetic polyneuropathy associated with type 2 diabetes mellitus ([facility]/HCC) LIPID PANEL Routine 11/09/2019 9:43 AM CDT Diabetic polyneuropathy associated with type 2 diabetes mellitus ([facility]/HCC) HEMOGLOBIN A1C Routine 11/09/2019 9:43 AM CDT Diabetic polyneuropathy associated with type 2 diabetes mellitus ([facility]/HCC) HM DIABETES EYE EXAM Routine 11/17/2018 ENDOSCOPY, COLON, SCREENING Routine 08/12/2009 10:57 AM CDT Special Screening for Malignant Neoplasms, Colon from Last 3 Months or Most Recently Relevant to Health Maintenance Results * (ABNORMAL) MICROALBUMIN/CREATININE RATIO, RANDOM UR (11/09/2019 9:43 AM CDT) MICROALBUMIN, URINE 5.3 No Reference Range mg/dL 11/09/2019 9:33 PM CDT [facility] CREATININE, URINE 139.7 40.0 - 278.0 mg/dL 11/09/2019 9:33 PM CDT [facility] Comment:Reference Range vari es with fluid intake and diet. MICROALBUMIN/ CREAT RATIO, UR 37.9(H) <17.0 mg/g 11/09/2019 9:33 PM CDT [facility] Urine URINE SPECIMEN OBTAINED BY CLEAN CATCH PROCEDURE / Unknown Collection / Unknown 11/09/2019 9:43 AM CDT 11/09/2019 8:19 PM CDT [facility]AT[facility] - 11/09/2019 9:33 PM CDT Condition Microalbumin/Creat ratio Normal Males <17 Normal Females <25 Microalbuminuria Males 17-299 Microalbuminuria Females 25-299 Overt proteinuria >=300 us Srinivasa Anderson MD URINE ORDERABLES Final Result [facility] CLIA# [id number] [facility] [place] [address] * (ABNORMAL) HEMOGLOBIN A1C (11/09/2019 9:43 AM CDT) HEMOGLOBIN A1C 6.2(H) See Comment % 11/09/2019 9:37 PM CDT [facility] EST. AVG GLUCOSE, A1C 131 mg/dL 11/09/2019 9:37 PM CDT [facility] Blood Venipuncture / Unknown 11/09/2019 9:43 AM CDT 11/09/2019 8:23 PM CDT Narrative [facility] - 11/09/2019 9:37 PM CDT HGB A1C INTERPRETATION NORMAL: <5.7% PRE-DIABETES: 5.7 - 6.4% DIABETES: 6.5% OR GREATER Falsely low A1C measurements can occur when: 1. Anemia and/or hemolytic anemia is present. 2. Hemoglobin variants present. 3. Renal failure. 4. Transfusion of blood product in the last 120 days. We recommend ordering a fructosamine test([id number]) to more accurately assess glycemic status if any of the above conditions are present. us Srinivasa Anderson MD CHEMISTRY ORDERABLES Final Resul t [facility] CLIA# [id number] [address] [place] [address] * (ABNORMAL) LIPID PANEL (11/09/2019 9:43 AM CDT) [facility] CHOLESTEROL 189 <200 mg/dL 11/09/2019 9:10 PM CDT [facility] TRIGLYCERIDE 102 <150 mg/dL 11/09/2019 9:10 PM T [facility] HDL 47 40 - 59 mg/dL 11/09/2019 9:10 PM T [facility] LDL CALCULATED 122(H) <100 mg/dL 11/09/2019 9:10 PM T [facility] NON-HDL CHOLESTEROL 142(H) <130 mg/dL 11/09/2019 9:10 PM T [facility] Blood Venipuncture / Unknown 11/09/2019 9:43 AM CDT 11/09/2019 8:24 PM CDT [facility]ATORY SERVICES-[facility] B[facility] - 11/09/2019 9:10 PM [...] Anderson MD CHEMISTRY ORDERABLES Final Resul t [facility]# [id number] [address] [place] [address] * DIABETES EYE EXAM (11/17/2018) us Abstract Spg Provider HEALTH MAINTENANCE Final R esult from Last 3 Months or Most Recently Relevant to Health Maintenance Insurance [address] [place] [address] MEDICARE PART A AND B [facility] [address] [place] [address] RX [employer] RX Member Subscriber Plan / Payer (Ef fective 2005-Present) Name:Moiz Hernandez Relation to Subscriber:Self Name:Moiz Hernandez Payer ID:Not on file Group ID:[id number] Type:RX Medicare Part D Address: [place] RX [facility] DATA Medicare Part B Advance Directives For more information, please contact: [phone] Documents on File Type Date Recorded Patient Environmental Protection Economist Expl anation Advance Directive Living Will 07/23/2012 [...] 10:57 AM 08/13/2009 2:32 AM Care Teams Leather Cleaner Relationship Specialty Start Date End Date Srinivasa Anderson MD [address] [place] [address] PCP - General 07/18/04
--- OUTSIDE RECORDS SUMMARY | 2024-11-06 12:56 | XMS_ITS | Encounter Summary ---
Author Organization [facility] Address [address] [facility] [place] [address] Care Team Providers Care Hay Stacker Name Role Phone Srinivasa Anderson MD Primary Care Provider [phone] Encounter Details Date Type Department Care Team (Late st Contact Info) Description 11/27/2000 Outpatient Historical [facility] Yfn Hahn MD [address] [place], [place] [id number] Other pulmonary embolism and infarction (CMS/HCC) (Primary Dx) Social History Tobacco Use Types Packs/Day Years Used Date Smoking Tobacco: Never Assessed Sex and Gender Information Value Date Recorded Sex Assigned at Not on file 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
--- OUTSIDE RECORDS SUMMARY | 2024-11-06 12:56 | XMS_ITS | Encounter Summary ---
Author Organization [facility] Address [address] [place] [address] Care Team Providers Care Radiation Technician Name Role Phone Srinivasa Anderson MD Primary Care Provider [phone] Encounter Details Date Type Department Care Team (Latest Contact Info) Description 02/18/2001 Outpatient Historical [facility] [address] [place] [address] Zoltan Mahoney MD NO ADDRESS ON FILE PERS HX SKIN MALIGNANCY NEC (Primary Dx); SEBORRHEIC KERATOSIS NOS; ACTINIC KERATOSIS Social History Tobacco Use Types Packs/Day Years Used Date Smoking Tobacco: Never Assessed Sex and Gender Information Value Date Recorded Sex Assigned at Not on file 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
--- OUTSIDE RECORDS SUMMARY | 2024-11-06 12:56 | XMS_ITS | Encounter Summary ---
Author Organization [facility] Address [address] [facility] [place] [address] Care Team Providers Care Hunting And Fishing Guide Name Role Phone Srinivasa Anderson MD Primary Care Provider [phone] Encounter Details Date Type Department Care Team (Latest Contact Info) Description 09/11/2002 Outpatient Historical [facility] Dermatology- [facility] Marek [address] [place] [address] Zoltan Mahoney MD NO ADDRESS ON FILE ACTINIC KERATOSIS (Primary Dx); Malig amado scalp/skin neck; SEBORRHEIC KERATOSIS NOS Social History Tobacco Use Types Packs/Day Years Used Date Smoking Tobacco: Never Assessed Sex and Gender Information Value Date Recorded Sex Assigned at Not on file 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
--- OUTSIDE RECORDS SUMMARY | 2024-11-06 12:56 | XMS_ITS | Encounter Summary ---
Author Organization [facility] Address [address] [facility] [place] [address] Care Team Providers Care Mud Logger Name Role Phone Srinivasa Anderson MD Primary Care Provider [phone] Encounter Details Date Type Department Care Team (Latest Contact Info) Description 01/17/2005 Outpatient Historical [facility] Imaging Services-Nilay Robles Levy [address] [place] [address] Juma Eng, DPM [address] [place] [address] BUNION (Primary Dx) Social History Tobacco Use Types Packs/Day Years Used Date Smoking Tobacco: Never Assessed Sex and Gender Information Value Date Recorded Sex Assigned at Not on file 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
--- OUTSIDE RECORDS SUMMARY | 2024-11-06 12:56 | XMS_ITS ---
Author Organization [facility] Address [address] [address] Care Team Providers Care Clinical Nutrition Manager Name Role Phone Srinivasa Anderson MD Primary Care Provider [phone] Active Problems Problem Noted Date Diagnosed Date [...]
--- OUTSIDE RECORDS SUMMARY | 2024-11-06 12:56 | XMS_ITS | Encounter Summary ---
Author Organization [facility] Address [address] [facility] [place] [address] Care Team Providers Care Category Specialist Name Role Phone Srinivasa Anderson MD Primary Care Provider [phone] Encounter Details Date Type Department Care Team (Late st Contact Info) Description 12/30/2000 Outpatient Historical [facility] Yfn Hahn MD [address] [place], [place] [id number] Other pulmonary embolism and infarction (CMS/HCC) (Primary Dx) Social History Tobacco Use Types Packs/Day Years Used Date Smoking Tobacco: Never Assessed Sex and Gender Information Value Date Recorded Sex Assigned at Not on file 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
--- OUTSIDE RECORDS SUMMARY | 2024-11-06 12:56 | XMS_ITS | Encounter Summary ---
Author Organization [facility] Address [address] [place] [address] Care Team Providers Care Information Systems Coordinator Name Role Phone Srinivasa Anderson MD Primary Care Provider [phone] Encounter Details Date Type Department Care Team (Latest Contact Info) Description 06/29/1999 Outpatient Historical [facility] Dermatology- [facility] [address] [place] [address] Zoltan Mahoney MD NO ADDRESS ON FILE Actinic keratosis (Primary Dx); Malig amado skin arm; Inflamed seborr keratos Social History Tobacco Use Types Packs/Day Years Used Date Smoking Tobacco: Never Assessed Sex and Gender Information Value Date Recorded Sex Assigned at Not on file 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 Sex Male 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
--- OUTSIDE RECORDS SUMMARY | 2024-11-06 12:56 | XMS_ITS | Encounter Summary ---
Author Organization [facility] Address [address] [address] Care Team Providers Care Roll Forming Supervisor Name Role Phone Srinivasa Anderson MD Primary Care Provider [phone] Encounter Details Date Type Department Care Team (Latest Contact Info) Description 03/04/2003 Outpatient Historical [facility] Int [facility] [place] [place] [address] Mark Lux MD [address] [place] [address] ABDOMINAL PAIN UNSPEC SITE (Primary Dx); LUMBAGO; ANXIETY STATE NOS Social History Tobacco Use Types Packs/Day Years Used Date Smoking Tobacco: Never Assessed Sex and Gender Information Value Date Recorded Sex Assigned at Not on file 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
--- OUTSIDE RECORDS SUMMARY | 2024-11-06 12:57 | XMS_ITS | Encounter Summary ---
Author Organization [facility] Address [address] [place] [address] Care Team Providers Care Credit Negotiator Name Role Phone Srinivasa Anderson MD Primary Care Provider [phone] Reason for Visit * Reason Onset Date Comments Question 09/13/2022 Encounter Details Date Type Department Care Team (Late st Contact Info) Description 09/13/2022 Telephone [facility] [address] [address] [facility] [address] [place] [address] Jaden Vital MD NO ADDRESS ON FILE Question Social History Tobacco Use Types Packs/Day Years Used Date Smoking Tobacco: Never Smokeless Tobacco: Former Alcohol Use Standard Drinks/Week Comments Yes 1 (1 standard drink = 0.6 oz pur e alcohol) Sex and Gender Information Value Date Recorded Sex Assigned at Not on file Legal Sex Male 6:28 AM GELATIN PLANT SUPERVISOR Gender Identity Not on file [...] Provider: Zahraa Person calling: Sultana Phone #: [phone] Relationship to patient: , PHI not signed [...] Description 11/20/2024 9:20 AM CDT Office Visit [facility] [address] [place] [address] Giana Fowler FNP [address] [place] [address] 12/25/2024 1:30 PM CDT Office Visit [facility] Juan Luis-Nilay Robles [address] [place] [address] Srinivasa Anderson MD [address] [place] [address] 03/04/2025 11:00 AM GELATIN PLANT SUPERVISOR Office Visit [facility] [address] [place] [address] Kodak Samuel MD [address] [place] [address] 03/11/2025 1:00 PM GELATIN PLANT SUPERVISOR Office Visit [facility] [address] [place] [address] Mariela Stone MD [address] [place] [address] Kay Bennett, VERONIQUE NO ADDRESS ON FILE documented as of this encounter Visit Diagnoses Not on filedocumented in this encounter Care Teams Credit Negotiator Relationship Specialty Start Date End Date Srinivasa Anderson MD [address] [phone] PCP - General Family Practice 05/18/24 documented as of this encounter
--- OUTSIDE RECORDS SUMMARY | 2024-11-06 12:57 | XMS_ITS | Encounter Summary ---
Author Organization [facility] Address [address] [place] [address] Care Team Providers Care Nurse Behavioral Health Care Name Role Phone Srinivasa Anderson MD Primary Care Provider [phone] Encounter Details Date Type Department Care Team (Latest Contact Info) Description 2005 Outpatient Historical [facility] [place] [place] [address] Srinivasa Anderson MD [address] [place] [address] Other Testicular Hypofunction (Primary Dx) Social History Tobacco Use Types Packs/Day Years Used Date Smoking Tobacco: Never Assessed Sex and Gender Information Value Date Recorded Sex Assigned at Not on file 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
--- OUTSIDE RECORDS SUMMARY | 2024-11-06 12:57 | XMS_ITS | Encounter Summary ---
Author Organization [facility] Address [address] [facility] [address] [place] [address] Care Team Providers Care Horseshoer Name Role Phone Srinivasa Anderson MD Primary Care Provider [phone] Encounter Details Date Type Department Care Team (Latest Contact Info) Description 02/14/2005 Outpatient Historical [facility] [place] [place] [address] Srinivasa Anderson MD [address] [place] [address] TESTICULAR HYPOFUNC NEC (Primary Dx); Vaccine for influenza Social History Tobacco Use Types Packs/Day Years Used Date Smoking Tobacco: Never Assessed Sex and Gender Information Value Date Recorded Sex Assigned at Not on file 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
--- OUTSIDE RECORDS SUMMARY | 2024-11-06 12:57 | XMS_ITS | Encounter Summary ---
Author Organization [facility] Address [address] [facility] [place] [address] Care Team Providers Care Cracking Unit Operator Name Role Phone Srinivasa Anderson MD Primary Care Provider Encounter Details Date Type Department Care Team (Latest Contact Info) Description 06/13/2005 Outpatient Historical [facility] [place] [place] [address] Srinivasa Anderson MD [address] [place] [address] TESTICULAR HYPOFUNC NEC (Primary Dx) Social History Tobacco Use Types Packs/Day Years Used Date Smoking Tobacco: Never Assessed Sex and Gender Information Value Date Recorded Sex Assigned at Not on file 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
--- OUTSIDE RECORDS SUMMARY | 2024-11-06 12:57 | XMS_ITS | Encounter Summary ---
Author Organization [facility] Address [address] [facility] [place] [address] Care Team Providers Care Melt House Centrifugal Operator Name Role Phone Srinivasa Anderson MD Primary Care Provider [phone] Encounter Details Date Type Department Care Team (Latest Contact Info) Description 03/09/2005 Outpatient Historical [facility] [place] [place] [address] Srinivasa Anderson MD [address] [place] [address] TESTICULAR HYPOFUNC NEC (Primary Dx) Social History Tobacco Use Types Packs/Day Years Used Date Smoking Tobacco: Never Assessed Sex and Gender Information Value Date Recorded Sex Assigned at Not on file 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
--- OUTSIDE RECORDS SUMMARY | 2024-11-06 12:57 | XMS_ITS | Encounter Summary ---
Author Organization [facility] Address [address] [facility] [place] [address] Care Team Providers Care Chicken Cleaner Name Role Phone Srinivasa Anderson MD Primary Care Provider [phone] Encounter Details Date Type Department Care Team (Latest Contact Info) Description 04/18/2005 Outpatient Historical [facility] [place] [place] [address] Srinivasa Anderson MD [address] [place] [address] TESTICULAR HYPOFUNC NEC (Primary Dx) Social History Tobacco Use Types Packs/Day Years Used Date Smoking Tobacco: Never Assessed Sex and Gender Information Value Date Recorded Sex Assigned at Not on file 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
--- OUTSIDE RECORDS SUMMARY | 2024-11-06 12:57 | XMS_ITS | Encounter Summary ---
Author Organization [facility] Address [address] [place] [address] Care Team Providers Care Machine Sole Leveler Name Role Phone Srinivasa Anderson MD Primary Care Provider [phone] Encounter Details Date Type Department Care Team (Latest Contact Info) Description 03/27/2005 Outpatient Historical [facility] [address] 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
--- OUTSIDE RECORDS SUMMARY | 2024-11-06 12:57 | XMS_ITS | Encounter Summary ---
Author Organization [facility] Address [address] [place] [address] Care Team Providers Care Grades 7 And 8 Teacher Name Role Phone Srinivasa Anderson MD Primary Care Provider [phone] Encounter Details Date Type Department Care Team (Latest Contact Info) Description 02/14/2005 Outpatient Historical [facility] [address] [place] [address] Shelia Alberto, RN NO ADDRESS ON FILE SCREENING-CARDIOVAS C NEC (Primary Dx) Social History Tobacco Use Types Packs/Day Years Used Date Smoking Tobacco: Never Assessed Sex and Gender Information Value Date Recorded Sex Assigned at Not on file 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
--- OUTSIDE RECORDS SUMMARY | 2024-11-06 12:57 | XMS_ITS | Encounter Summary ---
Author Organization [facility] Address [address] [facility] [place] [address] Care Team Providers Care Buffing Wheel Operator Name Role Phone Srinivasa Anderson MD Primary Care Provider [phone] Encounter Details Date Type Department Care Team (Latest Contact Info) Description 03/27/2005 Outpatient Historical [facility] Dermatology- [facility] [address] [place] [address] Zoltan Mahoney MD NO ADDRESS ON FILE ACTINIC KERATOSIS (Primary Dx); Inflamed seborr keratos; SEBORRHEIC KERATOSIS NOS; Malig amado skin arm Social History Tobacco Use Types Packs/Day Years Used Date Smoking Tobacco: Never Assessed Sex and Gender Information Value Date Recorded Sex Assigned at Not on file 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 Gender Identity Not on file Sexual Orientation Not on file documented as of this encounter Plan of Treatment Not on file documented as of this encounter Visit Diagnoses Diagnosis Actinic keratosis- Primary Inflamed seborr keratos Inflamed seborrheic keratosis Other seborrheic keratosis Malig amado skin arm 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
--- OUTSIDE RECORDS SUMMARY | 2024-11-06 12:57 | XMS_ITS | Encounter Summary ---
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 Social History Tobacco Use Types Packs/Day Years Used Date Smoking Tobacco: Never Assessed Sex and Gender Information Value Date Recorded Sex Assigned at Not on file 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
--- OUTSIDE RECORDS SUMMARY | 2024-11-06 12:57 | XMS_ITS | Encounter Summary ---
Author Organization [facility] Address [address] [place] [address] Care Team Providers Care Tie Puller Name Role Phone Srinivasa Anderson MD Primary Care Provider [phone] Encounter Details Date Type Department Care Team (Latest Contact Info) Description 05/22/2005 Outpatient Historical [facility] [place] [place] [address] Srinivasa Anderson MD [address] [place] [address] TESTICULAR HYPOFUNC NEC (Primary Dx); FOLLOW-UP EXAM NOS Social History Tobacco Use Types Packs/Day Years Used Date Smoking Tobacco: Never Assessed Sex and Gender Information Value Date Recorded Sex Assigned at Not on file 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
--- NOTE | 2024-11-06 14:48 | W.ED.SKABFB ---
HPI - Skin/Abscess/Foreign Bdy General: Chief complaint: Skin/Abscess/Foreign Body Stated complaint: lt leg pain Time Seen by Provider: 11/06/24 14:15 Source: patient and family Mode of arrival: ambulatory Limitations: no limitations History of Present Illness: Patient is an 89-year-old male resents to ED today for evaluation of a skin lesion to his left lower leg. Patient states about a month ago he feels like he was bit to something. He feels like the area formed a small pustule and then became very red and hot surrounding it. He states he was treated for cellulitis successfully with antibiotics. He feels like lesion has vastly improved but never fully went away. He states over the past few days it has began draining again and thinks it might be starting to get infected again. states area was warm this morning but this has subsided. MD complaint: lesion Onset (ago): week(s) Tetanus up to date: yes Location: LLE Severity: mild Relieving factors: none Exacerbating factors: none Associated symptoms: Reports no associated symptoms Treatments prior to arrival: none Related Data Home Medications ?Medication ?Instructions ?Recorded ?Confirmed acetaminophen 325 mg tablet 325 mg PO QID PRN Pain 01/24/24 11/02/24 (Tylenol) fluticasone propionate 50 1 spray intranasal BID PRN 01/24/24 11/02/24 mcg/actuation nasal allergies spray,suspension (Flonase Allergy Relief) losartan 100 mg tablet 100 mg PO DAILY 01/24/24 11/02/24 prednisone 5 mg tablet 5 mg PO DAILY 01/24/24 11/02/24 tamsulosin 0.4 mg capsule 0.4 mg PO DAILY 01/24/24 11/02/24 trazodone 100 mg tablet 100 mg PO DAILY PRN sleep 01/24/24 11/02/24 amlodipine 10 mg tablet 10 mg PO DAILY 03/17/24 11/02/24 guaifenesin 600 mg tablet, 600 mg PO BID 09/02/24 11/02/24 extended release 12 hr (Mucinex) fluorouracil 5 % topical cream 1 applic topical BID 11/02/24 11/02/24 Previous Rx's ?Medication ?Instructions ?Recorded blood sugar diagnostic (Contour #50 ea 05/18/22 Next Test Strips) diclofenac sodium 75 mg 75 mg PO Q12H PRN pain #20 tabs 11/02/24 tablet,delayed release doxycycline monohydrate 100 mg 100 mg PO Q12H 7 days #14 caps 11/06/24 capsule Allergies Allergy/AdvReac Type Severity Reaction Status Date / Time No Known Allergies Allergy Verified 11/06/24 12:55 Review of Systems Musc: Reports: extremity swelling (mild leg swelling-chronic); Denies: extremity pain, joint pain or joint swelling Skin/Breast: Reports: new lesions Neuro: Denies: headache(s), numbness in extremities, weakness in extremities or sensory changes PFSH ED PFSH: Medical History History of transcatheter aortic valve replacement (TAVR) History of colon polyps Impairment of balance Sleeplessness Left inguinal hernia Urinary hesitancy Nocturia more than twice per night Change in stool habits Abdominal discomfort Hx of basal cell carcinoma Allergic rhinitis Chronic neck pain Type 2 diabetes mellitus Diet managed Chronic anticoagulation INR goal 2-3 Hx pulmonary embolism Hypertension Surgical History History of inguinal hernia repair History of mitral valve repair History of colonoscopy History of esophagogastroduodenoscopy Hx of cataract surgery Family History Other CAD (coronary artery disease) Cancer Diabetes Heart attack Hyperlipidemia Hypertension Rheumatoid arthritis Stroke Denies family history of Lupus Chronic kidney disease (CKD) Social History Smoking and tobacco/nicotine status: never used tobacco/nicotine Quit status (tobacco/nicotine): has quit using Former quit date comment: over 40 years ago Alcohol intake: current Alcohol intake frequency: few times a week Substance/Drug Use: never Physical Exam Const: COMMON NORMALS: no acute distress, average body habitus, no limitations, healthy appearing, alert and well nourished Extremity: GENERAL: Yes normal exam except as noted OTHER: chronic varicosities; mild symmetrical lower extremity edema; small skin lesion to anterior L lower leg about 4mm that is ulcerative; not actively draining; no surrounding cellulitis/warmth/streaking Neuro: COMMON NORMALS: moves all extremities, no focal motor deficits and no sensory deficits noted SENSORIUM/ORIENTATION: Yes alert Course Vital Signs: Vital signs: Vital Signs Temperature 97.5 F L 11/06/24 12:53 Pulse Rate 73 11/06/24 15:00 Respiratory Rate 16 11/06/24 15:00 Blood Pressure 118/60 11/06/24 15:00 Pulse Oximetry 99 11/06/24 15:00 Oxygen Delivery Me thod Room Air 11/06/24 12:53 MDM - Skin/Abscess/Foreign Bdy Medicial Decision Making Discussed at this time I do not see any evidence of active cellulitis. Told him I would write for some antibiotics but that I would not recommend taking them unless lesion began to appear red and warm. Patient is agreeable to this plan. He can otherwise follow-up with primary care if lesion continues to not improve. Medical Records I reviewed the patient's medical records. No radiology studies performed this visit Discharge Plan Discharge Patient Disposition: Home Clinical Impression: Skin lesion Condition: Stable Prescriptions: New doxycycline monohydrate 100 mg capsule 100 mg PO Q12H 7 Days Qty: 14 0RF No Action (DME) Contour Next Test Strips Strip See Rx Instructions .Route Qty: 50 11RF Rx Instructions: use to test blood sugar once daily prednisone 5 mg tablet 5 mg PO DAILY tamsulosin 0.4 mg capsule 0.4 mg PO DAILY trazodone 100 mg tablet 100 mg PO DAILY PRN (Reason: sleep ) losartan 100 mg tablet 100 mg PO DAILY fluticasone propionate [Flonase Allergy Relief] 50 mcg/actuation spray,suspension 1 spray intranasal BID PRN (Reason: allergies) Rx Instructions: administer into each nostril acetaminophen [Tylenol] 325 mg Tablet 325 mg PO QID PRN (Reason: Pain) diclofenac sodium 75 mg tablet,delayed release (DR/EC) 75 mg PO Q12H PRN (Reason: pain) Qty: 20 0RF fluorouracil 5 % cream 1 applic TOPICAL BID amlodipine 10 mg tablet 10 mg PO DAILY guaifenesin [Mucinex] 600 mg Tablet Extended Release 12hr 600 mg PO BID Discharge Orders: Discharge ED (Routine); Ordered 11/06/24 Ordered By: Shira Rivera Referrals: Srinivasa Anderson MD [Primary Care Provider, Family Practice] Patient Instructions: Patient Portal & Jenna Instructions Print Language: Hebrew Coding Level of Care Code ED Post Partum Nurse for Steffany Redmond
[2024-11-06 15:00] VITALS: BP 118/60; PULSE 73; RESP 16; O2SAT 99
== END 2024-11-06 15:00 | disposition home or self-care (01) ==
PROVIDERS: Emergency Provider Physician Assistant; PCP Family Medicine
DX: L98.8 Other specified disorders of the skin and subcutaneous tissue (principal); Z87.891 Personal history of nicotine dependence; E78.5 Hyperlipidemia, unspecified; I10 Essential (primary) hypertension
CPT/HCPCS: 99283

== ENCOUNTER → 2024-11-26 12:45 | Outpatient (BNVA) | payer MEDICARE, SELFPAY | PROVIDERS: PCP Family Medicine; Visit Provider Podiatrist Foot & Ankle Surgery | DX: L97.512 Non-pressure chronic ulcer of other part of right foot with fat layer exposed (principal); G62.9 Polyneuropathy, unspecified; I73.9 Peripheral vascular disease, unspecified | CPT/HCPCS: 99214 ==

== ENCOUNTER → 2024-12-04 09:04 | Outpatient (BNVA) | payer MEDICARE, SELFPAY | PROVIDERS: PCP Family Medicine; Visit Provider Podiatrist Foot & Ankle Surgery | DX: M20.41 Other hammer toe(s) (acquired), right foot (principal); I73.9 Peripheral vascular disease, unspecified; G62.9 Polyneuropathy, unspecified | CPT/HCPCS: 28011; 99214; A6219 ==

== ENCOUNTER 2024-12-09 12:44 | Emergency (ER) | payer MEDICARE, SELFPAY ==
[2024-12-09 12:48] VITALS: BP 142/68; PULSE 85; RESP 16; TEMP 36.5; O2SAT 96
--- OUTSIDE RECORDS SUMMARY | 2024-12-09 12:53 | XMS_ITS | Encounter Summary ---
Author Organization [facility] Address [address] [place] [address] Care Team Providers Care Telephone Appointment Clerk Name Role Phone Srinivasa Anderson MD Primary Care Provider [phone] Encounter Details Date Type Department Care Team (Latest Contact Info) Description 12/19/2006 Outpatient Historical [facility] [place] [place] [address] Srinivasa Anderson MD [address] [place] [address] Other Testicular Hypofunction (Primary Dx) Social History Tobacco Use Types Packs/Day Years Used Date Smoking Tobacco: Never Assessed Sex and Gender Information Value Date Recorded Sex Assigned at Not on file 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
--- OUTSIDE RECORDS SUMMARY | 2024-12-09 12:53 | XMS_ITS | Encounter Summary ---
Author Organization [facility] Address [address] [facility] [place] [address] Care Team Providers Care Varitype Operator Name Role Phone Srinivasa Anderson MD Primary Care Provider [phone] Encounter Details Date Type Department Care Team (Latest Contact Info) Description 12/21/2005 Outpatient Historical [facility] [place] [place] [address] Srinivasa Anderson MD [address] [place] [address] Other Malaise and Fatigue (Primary Dx); Other Testicular Hypofunction; Depressive Disorder, not Elsewhere Classified Social History Tobacco Use Types Packs/Day Years Used Date Smoking Tobacco: Never Assessed Sex and Gender Information Value Date Recorded Sex Assigned at Not on file 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
--- OUTSIDE RECORDS SUMMARY | 2024-12-09 12:53 | XMS_ITS | Encounter Summary ---
Author Organization [facility] Address [address] [facility] [address] [place] [address] Care Team Providers Care Chief Resource Officer Name Role Phone Srinivasa Anderson MD Primary Care Provider [phone] Reason for Referral * Outpatient Services (Routine) - Closed Specialty Diagnoses / Procedures Referred By Contac t Referred To Contact Diagnoses Breast swelling Procedures MAMMO BREAST US LT Srinivasa Anderson MD [address] [place] [address] Phone: tel: fax: Referral ID Status Reason Start Date Expiration Date Visits Re quested Visits Authorized [id number] Closed 04/08/2012 04/08/2013 1 1 TYPE TECHNICIAN Encounter Details Date Type Department Care Team (Late st Contact Info) Description 04/08/2012 [facility] [place] [place] [address] Srinivasa Anderson MD [address] [place] [address] Breast swelling Social History Tobacco Use Types Packs/Day Years Used Date Smoking Tobacco: Former Cigarettes 0.5 30 0 04/22/1962 - 04/22/1992 Smokeless Tobacco: Never Alcohol Use Standard Drinks/Week Comments No 0 (1 standard drink = 0.6 oz pur e alcohol) Sex and Gender Information Value Date Recorded Sex Assigned at Not on file 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 Sex Male 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 The mammogram is unremarkable as well as the directed left breast ultrasound. Therefore clinical correlation is recommended regarding the reported symptoms. Patient received the result and recommendation letter. Spencer 1140 AM - uploaded from [employer] - WP Fail-Safe 04/08/2012 8:55 PM TELETYPE TECHNICIAN REASON FOR EXAM: Patient is reporting to [...] by the Computer Aided Detection System (CAD), [employer] ImageChecker, Version 8.3. LEFT BREAST ULTRASOUND: Sonographic [...] by the Computer Aided Detection System (CAD), [employer] ImageImagine Communicationscker, Version 8.3. LEFT BREAST ULTRASOUND: Sonographic evaluation [...] letter. DB/allie 1140 AM - uploaded from [employer] - us Srinivasa Anderson MD MAMMO ORDERABLES Final Result documented in this encounter Visit Diagnoses Diagnosis Breast swelling Lump or mass in breast Breast swelling Lump or mass in breast documented in this encounter Care Teams Chief Resource Officer Relationship Specialty Start Date End Date Srinivasa Anderson MD [address] [address] PCP - General 07/18/04 documented as of this encounter
--- OUTSIDE RECORDS SUMMARY | 2024-12-09 12:53 | XMS_ITS | Encounter Summary ---
Author Organization [facility] Address [address] [place] [place] [address] Care Team Providers Care Salesperson Automobiles Name Role Phone Srinivasa Anderson MD Primary Care Provider [phone] Encounter Details Date Type Department Care Team (Latest Contact Info) Description 09/27/2005 Outpatient Historical [facility] [place] [address] [place] [address] Zoltan Mahoney MD NO ADDRESS ON FILE Malig John Skin Arm (Primary Dx); Actinic Keratosis; Other Seborrheic Keratosis Social History Tobacco Use Types Packs/Day Years Used Date Smoking Tobacco: Never Assessed Sex and Gender Information Value Date Recorded Sex Assigned at Not on file 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
--- OUTSIDE RECORDS SUMMARY | 2024-12-09 12:53 | XMS_ITS | Encounter Summary ---
Author Organization [facility] Address [address] [place] [address] Care Team Providers Care Form Presser Name Role Phone Srinivasa Anderson MD Primary Care Provider [phone] Encounter Details Date Type Department Care Team (Latest Contact Info) Description 10/19/2005 Outpatient Historical [facility] [place] [place] [address] Srinivasa Anderson MD [address] [place] [address] Other Testicular Hypofunction (Primary Dx) Social History Tobacco Use Types Packs/Day Years Used Date Smoking Tobacco: Never Assessed Sex and Gender Information Value Date Recorded Sex Assigned at Not on file 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
--- OUTSIDE RECORDS SUMMARY | 2024-12-09 12:53 | XMS_ITS | Encounter Summary ---
Author Organization [facility] Address [address] [facility] [address] Care Team Providers Care Yarn Winder Name Role Phone Srinivasa Anderson MD Primary Care Provider [phone] Encounter Details Date Type Department Care Team (Latest Contact Info) Description 02/07/2006 Outpatient Historical [facility] [place] [place] [address] Srinivasa Anderson MD [address] [place] [address] Other Testicular Hypofunction (Primary Dx) Social History Tobacco Use Types Packs/Day Years Used Date Smoking Tobacco: Never Assessed Sex and Gender Information Value Date Recorded Sex Assigned at Not on file 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
--- OUTSIDE RECORDS SUMMARY | 2024-12-09 12:53 | XMS_ITS | Encounter Summary ---
Author Organization [facility] Address [address] [facility] [place] [address] Care Team Providers Care Director Of Publications Name Role Phone Srinivasa Anderson MD Primary Care Provider [phone] Encounter Details Date Type Department Care Team (Latest Contact Info) Description 11/22/2005 Outpatient Historical [facility] [place] [place] [address] Nati Espinoza MD [address] [place] [address] Other Testicular Hypofunction (Primary Dx) Social History Tobacco Use Types Packs/Day Years Used Date Smoking Tobacco: Never Assessed Sex and Gender Information Value Date Recorded Sex Assigned at Not on file 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
--- OUTSIDE RECORDS SUMMARY | 2024-12-09 12:53 | XMS_ITS | Encounter Summary ---
Author Organization [facility] Address [address] [place] [address] Care Team Providers Care Suit Attendant Name Role Phone Srinivasa Anderson MD Primary Care Provider [phone] Encounter Details Date Type Department Care Team (Late st Contact Info) Description 05/03/2006 Outpatient Historical [facility] [address] [place] [address] Srinivasa Anderson MD [address] [phone] Social History Tobacco Use Types Packs/Day Years Used Date Smoking Tobacco: Never Assessed Sex and Gender Information Value Date Recorded Sex Assigned at Not on file Legal Sex Male 3:08 AM TANK SHOP SUPERVISOR Gender Identity Not on file Sexual Orientation Not on file documented as of this encounter Plan of Treatment Not on file documented as of this encounter Visit Diagnoses Not on filedocumented in this encounter Care Teams Suit Attendant Relationship Specialty Start Date End Date Srinivasa Anderson MD [address] [facility] [address] [place] [address] PCP - General 07/18/04 documented as of this encounter
--- OUTSIDE RECORDS SUMMARY | 2024-12-09 12:53 | XMS_ITS | Encounter Summary ---
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
--- OUTSIDE RECORDS SUMMARY | 2024-12-09 12:53 | XMS_ITS | Encounter Summary ---
Author Organization [facility] Address [address] [place] [address] Care Team Providers Care Automotive Upholsterer Name Role Phone Srinivasa Anderson MD Primary Care Provider [phone] Encounter Details Date Type Department Care Team (Latest Contact Info) Description 05/15/2006 Outpatient Historical [facility] [place] [place] [address] Srinivasa Anderson MD [address] [place] [address] Other Testicular Hypofunction (Primary Dx) Social History Tobacco Use Types Packs/Day Years Used Date Smoking Tobacco: Never Assessed Sex and Gender Information Value Date Recorded Sex Assigned at Not on file Legal Sex Male 3:08 AM CUT OFF MAN Gender Identity Not on file Sexual Orientation Not on file documented as of this encounter Plan of Treatment Not on file documented as of this encounter Visit Diagnoses Diagnosis Other testicular hypofunction- Primary documented in this encounter Care Teams Automotive Upholsterer Relationship Specialty Start Date End Date Srinivasa Anderson MD [address] [place] [address] PCP - General 07/18/04 documented as of this encounter
--- OUTSIDE RECORDS SUMMARY | 2024-12-09 12:53 | XMS_ITS | Encounter Summary ---
Author Organization [facility] Address [address] [place] [address] Care Team Providers Care Delivery Lead Name Role Phone Srinivasa Anderson MD Primary Care Provider [phone] Encounter Details Date Type Department Care Team (Latest Contact Info) Description 11/21/2006 Outpatient Historical [facility] 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
--- OUTSIDE RECORDS SUMMARY | 2024-12-09 12:53 | XMS_ITS | Encounter Summary ---
Author Organization [facility] Address [address] [facility] [address] [place] [address] Care Team Providers Care Proposal Rep Name Role Phone Srinivasa Anderson MD Primary Care Provider [phone] Encounter Details Date Type Department Care Team (Latest Contact Info) Description 2006 Outpatient Historical [facility] [place] [place] [address] Srinivasa Anderson MD [address] [place] [address] Other Testicular Hypofunction (Primary Dx) Social History Tobacco Use Types Packs/Day Years Used Date Smoking Tobacco: Never Assessed Sex and Gender Information Value Date Recorded Sex Assigned at Not on file 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
--- OUTSIDE RECORDS SUMMARY | 2024-12-09 12:53 | XMS_ITS | Encounter Summary ---
Author Organization [facility] Address [address] [facility] [place] [address] Care Team Providers Care Sheriff Detective Name Role Phone Srinivasa Anderson MD Primary Care Provider [phone] Encounter Details Date Type Department Care Team (Latest Contact Info) Description 09/04/2005 Outpatient Historical [facility] [place] [place] [address] Srinivasa Anderson MD [address] [place] [address] Unspecified Essential Hypertension (Primary Dx); Other and Unspecified Hyperlipidemia; Abdominal Pain, Unspecified Site; Depressive Disorder, not Elsewhere Classified Social History Tobacco Use Types Packs/Day Years Used Date Smoking Tobacco: Never Assessed Sex and Gender Information Value Date Recorded Sex Assigned at Not on file 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 Sex Male 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
--- OUTSIDE RECORDS SUMMARY | 2024-12-09 12:53 | XMS_ITS | Encounter Summary ---
Author Organization [facility] Address [address] [place] [address] Care Team Providers Care Electric Frying Pan Repairer Name Role Phone Srinivasa Anderson MD Primary Care Provider [phone] Encounter Details Date Type Department Care Team (Latest Contact Info) Description 10/10/2005 Outpatient Historical [facility] [address] [place] [address] Zoltan Mahoney MD NO ADDRESS ON FILE Actinic Keratosis (Primary Dx) Social History Tobacco Use Types Packs/Day Years Used Date Smoking Tobacco: Never Assessed Sex and Gender Information Value Date Recorded Sex Assigned at Not on file Legal Sex Male 3:08 AM CERTIFIED NURSING ASSISTANT Gender Identity Not on file Sexual Orientation Not on file documented as of this encounter Plan of Treatment Not on file documented as of this encounter Visit Diagnoses Diagnosis Actinic keratosis- Primary documented in this encounter Care Teams Electric Frying Pan Repairer Relationship Specialty Start Date End Date Srinivasa Anderson MD [address] [address] PCP - General 07/18/04 documented as of this encounter
--- OUTSIDE RECORDS SUMMARY | 2024-12-09 12:53 | XMS_ITS | Encounter Summary ---
Author Organization [facility] Address [address] [facility] [place] [address] Care Team Providers Care Block Sawyer Name Role Phone Srinivasa Anderson MD Primary Care Provider [phone] Encounter Details Date Type Department Care Team (Latest Contact Info) Description 06/19/2006 Outpatient Historical [facility] [place] [place] [address] Srinivasa Anderson MD [address] [place] [address] Other Testicular Hypofunction (Primary Dx) Social History Tobacco Use Types Packs/Day Years Used Date Smoking Tobacco: Never Assessed Sex and Gender Information Value Date Recorded Sex Assigned at Not on file Legal Sex Male 3:08 AM CLOTH 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
--- OUTSIDE RECORDS SUMMARY | 2024-12-09 12:53 | XMS_ITS | Encounter Summary ---
Author Organization [facility] Address [address] [facility] [place] [address] Care Team Providers Care Promotions Assistant Name Role Phone Srinivasa Anderson MD Primary Care Provider [phone] Encounter Details Date Type Department Care Team (Latest Contact Info) Description 01/16/2007 Outpatient Historical [facility] [place] [place] [address] Srinivasa Anderson MD [address] [place] [address] Other Abnormal Blood Chemistry (Primary Dx); Iatrogenic Pulmonary Embolism and Infarction (CMS/HCC); Other and Unspecified Hyperlipidemia; Other Testicular Hypofunction Social History Tobacco Use Types Packs/Day Years Used Date Smoking Tobacco: Never Assessed Sex and Gender Information Value Date Recorded Sex Assigned at Not on file 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 Gender Identity Not on file Sexual Orientation Not on file documented as of this encounter Plan of Treatment Not on file documented as of this encounter Visit Diagnoses Diagnosis Other abnormal blood chemistry- Primary Iatrogenic pulmonary embolism and infarction (CMS/HCC) Iatrogenic pulmonary embolism and infarction Other and unspecified hyperlipidemia Other testicular hypofunction documented in this encounter Care Teams Promotions Assistant Relationship Specialty Start Date End Date Srinivasa Anderson MD [address] [place] [address] PCP - General 07/18/04 documented as of this encounter
--- OUTSIDE RECORDS SUMMARY | 2024-12-09 12:53 | XMS_ITS | Encounter Summary ---
Author Organization [facility] Address [address] [facility] [address] Care Team Providers Care Puppy Sitter Name Role Phone Srinivasa Anderson MD Primary Care Provider [phone] Encounter Details Date Type Department Care Team (Latest Contact Info) Description 08/15/2006 Outpatient Historical [facility] [place] [place] [address] Srinivasa Anderson MD [address] [place] [address] Other Testicular Hypofunction (Primary Dx) Social History Tobacco Use Types Packs/Day Years Used Date Smoking Tobacco: Never Assessed Sex and Gender Information Value Date Recorded Sex Assigned at Not on file 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
--- OUTSIDE RECORDS SUMMARY | 2024-12-09 12:53 | XMS_ITS | Encounter Summary ---
Author Organization [facility] Address [address] [facility] [place] [address] Care Team Providers Care Grain Roaster Name Role Phone Srinivasa Anderson MD Primary Care Provider [phone] Encounter Details Date Type Department Care Team (Latest Contact Info) Description 04/19/2006 Outpatient Historical [facility] [place] [place] [address] Srinivasa Anderson MD [address] [place] [address] Other Testicular Hypofunction (Primary Dx) Social History Tobacco Use Types Packs/Day Years Used Date Smoking Tobacco: Never Assessed Sex and Gender Information Value Date Recorded Sex Assigned at Not on file Legal Sex Male 3: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
--- OUTSIDE RECORDS SUMMARY | 2024-12-09 12:53 | XMS_ITS | Encounter Summary ---
Author Organization [facility] Address [address] [facility] [place] [address] Care Team Providers Care Forestry Farm Laborer Name Role Phone Srinivasa Anderson MD Primary Care Provider [phone] Encounter Details Date Type Department Care Team (Latest Contact Info) Description 08/16/2005 Outpatient Historical [facility] [place] [place] [address] Srinivasa Anderson MD [address] [place] [address] Other Testicular Hypofunction (Primary Dx) Social History Tobacco Use Types Packs/Day Years Used Date Smoking Tobacco: Never Assessed Sex and Gender Information Value Date Recorded Sex Assigned at Not on file 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
--- OUTSIDE RECORDS SUMMARY | 2024-12-09 12:53 | XMS_ITS | Encounter Summary ---
Author Organization [facility] Address [address] [facility] [place] [address] Care Team Providers Care Farm Helper Name Role Phone Srinivasa Anderson MD Primary Care Provider [phone] Encounter Details Date Type Department Care Team (Latest Contact Info) Description 09/26/2006 Outpatient Historical [facility] [place] [place] [address] Srinivasa Anderson MD [address] [place] [address] Other Testicular Hypofunction (Primary Dx) Social History Tobacco Use Types Packs/Day Years Used Date Smoking Tobacco: Never Assessed Sex and Gender Information Value Date Recorded Sex Assigned at Not on file Legal Sex Male 3:[address] MAGISTRATE Gender Identity Not on file Sexual Orientation Not on file documented as of this encounter Plan of Treatment Not on file documented as of this encounter Visit Diagnoses Diagnosis Other testicular hypofunction- Primary documented in this encounter Care Teams Farm Helper Relationship Specialty Start Date End Date Srinivasa Anderson MD [address] [place] [address] PCP - General 07/18/04 documented as of this encounter
--- OUTSIDE RECORDS SUMMARY | 2024-12-09 12:53 | XMS_ITS | Encounter Summary ---
Author Organization [facility] Address [address] [facility] [place] [address] Care Team Providers Care Apparel Pattern Maker Name Role Phone Srinivasa Anderson MD Primary Care Provider [phone] Encounter Details Date Type Department Care Team (Latest Contact Info) Description 07/25/2006 Outpatient Historical [facility] [place] [place] [address] Srinivasa Anderson MD [address] [place] [address] Other Abnormal Blood Chemistry (Primary Dx); Osteoarth NOS-Unspec; 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 Social History Tobacco Use Types Packs/Day Years Used Date Smoking Tobacco: Never Assessed Sex and Gender Information Value Date Recorded Sex Assigned at Not on file 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
--- OUTSIDE RECORDS SUMMARY | 2024-12-09 12:53 | XMS_ITS | Encounter Summary ---
Author Organization [facility] Address [address] [facility] [place] [address] Care Team Providers Care Barber Apprentice Name Role Phone Srinivasa Anderson MD Primary Care Provider [phone] Encounter Details Date Type Department Care Team (Latest Contact Info) Description 03/20/2007 Outpatient Historical [facility] [place] [place] [address] Srinivasa Anderson MD [address] [place] [address] Other Testicular Hypofunction (Primary Dx) Social History Tobacco Use Types Packs/Day Years Used Date Smoking Tobacco: Never Assessed Sex and Gender Information Value Date Recorded Sex Assigned at Not on file 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
--- OUTSIDE RECORDS SUMMARY | 2024-12-09 12:53 | XMS_ITS | Encounter Summary ---
Author Organization [facility] Address [address] [place] [address] Care Team Providers Care Parks Recreation Coordinator Name Role Phone Srinivasa Anderson MD Primary Care Provider [phone] Encounter Details Date Type Department Care Team (Latest Contact Info) Description 03/10/2007 Outpatient Historical [facility] [address] 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
--- OUTSIDE RECORDS SUMMARY | 2024-12-09 12:53 | XMS_ITS | Encounter Summary ---
Author Organization [facility] Address [address] [facility] [address] Care Team Providers Care Professor Of French Name Role Phone Srinivasa Anderson MD Primary Care Provider [phone] Encounter Details Date Type Department Care Team (Latest Contact Info) Description 01/18/2006 Outpatient Historical [facility] [place] [place] [address] Srinivasa Anderson MD [address] [place] [address] Other Testicular Hypofunction (Primary Dx) Social History Tobacco Use Types Packs/Day Years Used Date Smoking Tobacco: Never Assessed Sex and Gender Information Value Date Recorded Sex Assigned at Not on file 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
--- OUTSIDE RECORDS SUMMARY | 2024-12-09 12:53 | XMS_ITS | Encounter Summary ---
Author Organization [facility] Address [address] [facility] [place] [address] Care Team Providers Care Bevel Gear Generator Operator Name Role Phone Srinivasa Anderson MD Primary Care Provider [phone] Encounter Details Date Type Department Care Team (Latest Contact Info) Description 07/25/2005 Outpatient Historical [facility]- [facility] [place] [address] [place] [address] Zoltan Mahoney MD NO ADDRESS ON FILE Malig John Skin Arm (Primary Dx); Other Seborrheic Keratosis Social History Tobacco Use Types Packs/Day Years Used Date Smoking Tobacco: Never Assessed Sex and Gender Information Value Date Recorded Sex Assigned at Not on file 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
--- OUTSIDE RECORDS SUMMARY | 2024-12-09 12:53 | XMS_ITS | Encounter Summary ---
Author Organization [facility] Address [address] [place] [address] Care Team Providers Care Psych Arnp Name Role Phone Srinivasa Anderson MD Primary Care Provider [phone] Encounter Details Date Type Department Care Team (Latest Contact Info) Description 04/11/2006 Outpatient Historical [facility] D[facility]- [facility] [place] [address] [place] [address] Zoltan Mahoney MD NO ADDRESS ON FILE Malig John Skin Ear (Primary Dx); Actinic Keratosis; Other Seborrheic Keratosis Social History Tobacco Use Types Packs/Day Years Used Date Smoking Tobacco: Never Assessed Sex and Gender Information Value Date Recorded Sex Assigned at Not on file 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
--- OUTSIDE RECORDS SUMMARY | 2024-12-09 12:53 | XMS_ITS | Encounter Summary ---
Author Organization [facility] Address [address] [facility] [place] [address] Care Team Providers Care Rn Chemical Dependency Name Role Phone Srinivasa Anderson MD Primary Care Provider [phone] Encounter Details Date Type Department Care Team (Latest Contact Info) Description 10/24/2006 Outpatient Historical [facility] [place] [place] [address] Srinivasa Anderson MD [address] [place] [address] Other Testicular Hypofunction (Primary Dx) Social History Tobacco Use Types Packs/Day Years Used Date Smoking Tobacco: Never Assessed Sex and Gender Information Value Date Recorded Sex Assigned at Not on file 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
--- OUTSIDE RECORDS SUMMARY | 2024-12-09 12:53 | XMS_ITS | Encounter Summary ---
Author Organization [facility] Address [address] [facility] [place] [address] Care Team Providers Care Contribution Solicitor Name Role Phone Srinivasa Anderson MD Primary Care Provider [phone] Reason for Referral * Outpatient Services (Routine) - Closed Specialty Diagnoses / Procedures Referred By Contac t Referred To Contact Diagnoses Breast swelling Procedures MAMMO DIGITAL DIAG BILAT Srinivasa Anderson MD [address] [place] [address] Phone: tel: fax: Referral ID Status Reason Start Date Expiration Date Visits Re quested Visits Authorized [id number] Closed 04/08/2012 04/08/2013 1 1 GROUND DIRECTOR Encounter Details Date Type Department Care Team (Late st Contact Info) Description 04/08/2012 Ancillary Orders [facility] [place] [place] [address] Srinivasa Anderson MD [address] [place] [address] Breast swelling Social History Tobacco Use Types Packs/Day Years Used Date Smoking Tobacco: Former Cigarettes 0.5 30 0 04/22/1962 - 04/22/1992 Smokeless Tobacco: Never Alcohol Use Standard Drinks/Week Comments No 0 (1 standard drink = 0.6 oz pur e alcohol) Sex and Gender Information Value Date Recorded Sex Assigned at Not on file 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 Sex Male 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 The mammogram is unremarkable as well as the directed left breast ultrasound. Therefore clinical correlation is recommended regarding the reported symptoms. Patient received the result and recommendation letter. Spencer 1140 AM - uploaded from [employer] - Narrative 04/08/2012 8:55 PM PLAYGROUND DIRECTOR REASON FOR EXAM: Patient is reporting [...] by the Computer Aided Detection System (CAD), [employer] ImageChecker, Version 8.3. LEFT BREAST ULTRASOUND: Sonographic [...] by the Computer Aided Detection System (CAD), [employer] ImageYupi Studioscker, Version 8.3. LEFT BREAST ULTRASOUND: Sonographic evaluation [...] letter. DB/allie 1140 AM - uploaded from [employer] - us Srinivasa Anderson MD MAMMO ORDERABLES Final Result documented in this encounter Visit Diagnoses Diagnosis Breast swelling Lump or mass in breast Breast swelling Lump or mass in breast documented in this encounter Care Teams Contribution Solicitor Relationship Specialty Start Date End Date Srinivasa Anderson MD [address] [address] PCP - General 07/18/04 documented as of this encounter
--- OUTSIDE RECORDS SUMMARY | 2024-12-09 12:53 | XMS_ITS | Encounter Summary ---
Author Organization [facility] Address [address] [place] [address] Care Team Providers Care Data Quality Consultant Name Role Phone Srinivasa Anderson MD Primary Care Provider [phone] Encounter Details Date Type Department Care Team (Latest Contact Info) Description 10/10/2005 Outpatient Historical [facility] [place] [address] [place] [id number] Zoltan Mahoney MD NO ADDRESS ON FILE Malig John Skin Ear (Primary Dx); Malig John Skin Arm Social History Tobacco Use Types Packs/Day Years Used Date Smoking Tobacco: Never Assessed Sex and Gender Information Value Date Recorded Sex Assigned at Not on file 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
--- OUTSIDE RECORDS SUMMARY | 2024-12-09 12:53 | XMS_ITS | Encounter Summary ---
Author Organization [facility] Address [address] [place] [address] Care Team Providers Care Er Manager Name Role Phone Srinivasa Anderson MD Primary Care Provider [phone] Encounter Details Date Type Department Care Team (Latest Contact Info) Description 04/11/2006 Outpatient Historical [facility] [address] 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
--- OUTSIDE RECORDS SUMMARY | 2024-12-09 12:53 | XMS_ITS | Encounter Summary ---
Author Organization [facility] Address [address] [facility] [place] [address] Care Team Providers Care Minibus Driver Name Role Phone Srinivasa Anderson MD Primary Care Provider [phone] Encounter Details Date Type Department Care Team (Latest Contact Info) Description 07/25/2005 Outpatient Historical [facility] [address] [place] [address] 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
--- OUTSIDE RECORDS SUMMARY | 2024-12-09 12:53 | XMS_ITS | Encounter Summary ---
Author Organization [facility] Address [address] [facility] [place] [address] Care Team Providers Care Chlorinator Operator Name Role Phone Srinivasa Anderson MD Primary Care Provider [phone] Encounter Details Date Type Department Care Team (Latest Contact Info) Description 10/10/2006 Outpatient Historical [facility]- [facility] [place] [address] [place] [address] Zoltan Mahoney MD NO ADDRESS ON FILE Actinic Keratosis (Primary Dx); Other Seborrheic Keratosis; Benign John Scalp/Skin Neck Social History Tobacco Use Types Packs/Day Years Used Date Smoking Tobacco: Never Assessed Sex and Gender Information Value Date Recorded Sex Assigned at Not on file 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
--- OUTSIDE RECORDS SUMMARY | 2024-12-09 12:53 | XMS_ITS | Encounter Summary ---
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, Uncontrolled (Primary Dx) Social History Tobacco Use Types Packs/Day Years Used Date Smoking Tobacco: Never Assessed Sex and Gender Information Value Date Recorded Sex Assigned at Not on file 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
--- OUTSIDE RECORDS SUMMARY | 2024-12-09 12:53 | XMS_ITS | Encounter Summary ---
Author Organization [facility] Address [address] [place] [address] Care Team Providers Care Pipe Foreman Name Role Phone Srinivasa Anderson MD Primary Care Provider [phone] Encounter Details Date Type Department Care Team (Latest Contact Info) Description 03/26/2006 Outpatient [facility] [place] [place] [address] Srinivasa Anderson MD [address] [place] [address] Other Testicular Hypofunction (Primary Dx); Vaccine for influenza; Lumbago Social History Tobacco Use Types Packs/Day Years Used Date Smoking Tobacco: Never Assessed Sex and Gender Information Value Date Recorded Sex Assigned at Not on file 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
--- OUTSIDE RECORDS SUMMARY | 2024-12-09 12:53 | XMS_ITS | Encounter Summary ---
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); Depressive Disorder, not Elsewhere Classified Social History Tobacco Use Types Packs/Day Years Used Date Smoking Tobacco: Never Assessed Sex and Gender Information Value Date Recorded Sex Assigned at Not on file 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
--- OUTSIDE RECORDS SUMMARY | 2024-12-09 12:53 | XMS_ITS | Encounter Summary ---
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
--- OUTSIDE RECORDS SUMMARY | 2024-12-09 12:53 | XMS_ITS | Encounter Summary ---
Author Organization [facility] Address [address] [place] [address] Care Team Providers Care Manager Cancer Name Role Phone Srinivasa Anderson MD Primary Care Provider [phone] Encounter Details Date Type Department Care Team (Latest Contact Info) Description 04/25/2006 Outpatient Historical [facility] [place] [place] [address] Srinivasa Anderson MD [address] [place] [address] Acute Sinusitis, Unspecified (Primary Dx) Social History Tobacco Use Types Packs/Day Years Used Date Smoking Tobacco: Never Assessed Sex and Gender Information Value Date Recorded Sex Assigned at Not on file Legal Sex Male 3:[address] MANAGER Gender Identity Not on file Sexual Orientation Not on file documented as of this encounter Plan of Treatment Not on file documented as of this encounter Visit Diagnoses Diagnosis Acute sinusitis, unspecified- Primary documented in this encounter Care Teams Manager Cancer Relationship Specialty Start Date End Date Srinivasa Anderson MD [address] [place] [address] PCP - General 07/18/04 documented as of this encounter
--- OUTSIDE RECORDS SUMMARY | 2024-12-09 12:54 | XMS_ITS ---
Author Organization [facility] Address [address] [place] [address] Phone Care Team Providers Care Terminal Carman Name Role Phone Srinivasa Anderson MD Primary Care Provider [phone] Active Problems Problem Noted Date Diagnosed Date [...]
--- OUTSIDE RECORDS SUMMARY | 2024-12-09 12:54 | XMS_ITS | Encounter Summary ---
Author Organization [facility] Address [address] [place] [address] Care Team Providers Care Plastic Printer Name Role Phone Srinivasa Anderson MD Primary Care Provider [phone] Encounter Details Date Type Department Care Team (Latest Contact Info) Description 10/26/2004 Outpatient Historical [facility] [address] 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
--- OUTSIDE RECORDS SUMMARY | 2024-12-09 12:54 | XMS_ITS | Encounter Summary ---
Author Organization [facility] Address [address] [place] [address] Care Team Providers Care Steamboat Pilot Name Role Phone Srinivasa Anderson MD Primary Care Provider [phone] Encounter Details Date Type Department Care Team (Latest Contact Info) Description 02/08/2004 Outpatient Historical [facility] Int [facility] [place] [place] [address] Mark Lux MD [address] [place] [address] HEMATURIA (Primary Dx); LUMBAGO; Vaccine for influenza Social History Tobacco Use Types Packs/Day Years Used Date Smoking Tobacco: Never Assessed Sex and Gender Information Value Date Recorded Sex Assigned at Not on file 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
--- OUTSIDE RECORDS SUMMARY | 2024-12-09 12:54 | XMS_ITS | Encounter Summary ---
Author Organization [facility] Address [address] [place] [address] Care Team Providers Care Talkback Host Name Role Phone Srinivasa Anderson MD Primary Care Provider [phone] Encounter Details Date Type Department Care Team (Latest Contact Info) Description 05/07/2003 Outpatient Historical [facility] Int [facility] [place] [place] [address] Mark Lux MD [address] [place] [address] HYPERTENSION NOS (Primary Dx); Pure hypercholesterolem Social History Tobacco Use Types Packs/Day Years Used Date Smoking Tobacco: Never Assessed Sex and Gender Information Value Date Recorded Sex Assigned at Not on file 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
--- OUTSIDE RECORDS SUMMARY | 2024-12-09 12:54 | XMS_ITS | Encounter Summary ---
Author Organization [facility] Address [address] [facility] [place] [address] Care Team Providers Care Sales And Leasing Consultant Name Role Phone Srinivasa Anderson MD Primary Care Provider [phone] Encounter Details Date Type Department Care Team (Latest Contact Info) Description 01/17/2005 Outpatient Historical [facility] Imaging Services-Nilay Robles [place] [address] [place] [address] Juma Eng, DPM [address] [place] [address] BUNION (Primary Dx) Social History Tobacco Use Types Packs/Day Years Used Date Smoking Tobacco: Never Assessed Sex and Gender Information Value Date Recorded Sex Assigned at Not on file 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
--- OUTSIDE RECORDS SUMMARY | 2024-12-09 12:54 | XMS_ITS | Encounter Summary ---
Author Organization [facility] Address [address] [place] [address] Care Team Providers Care File Keeper Name Role Phone Srinivasa Adnerson MD Primary Care Provider [phone] Encounter Details Date Type Department Care Team (Latest Contact Info) Description 11/30/2003 Outpatient Historical [facility]- [facility] [address] [place] [address] Zoltan Mahoney MD NO ADDRESS ON FILE ACTINIC KERATOSIS (Primary Dx); Inflamed seborr keratos; SEBORRHEIC KERATOSIS NOS Social History Tobacco Use Types Packs/Day Years Used Date Smoking Tobacco: Never Assessed Sex and Gender Information Value Date Recorded Sex Assigned at Not on file 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
--- OUTSIDE RECORDS SUMMARY | 2024-12-09 12:54 | XMS_ITS | Encounter Summary ---
Author Organization [facility] Address [address] [place] [address] Care Team Providers Care Business Center Representative Name Role Phone Srinivasa Anderson MD Primary Care Provider [phone] Encounter Details Date Type Department Care Team (Latest Contact Info) Description 11/06/2002 Outpatient Historical [facility] Imaging Services-[facility] Robles [place] [address] [place] [address] Mark Lux MD [address] [place] [address] HYPERTENSION NOS (Primary Dx) Social History Tobacco Use Types Packs/Day Years Used Date Smoking Tobacco: Never Assessed Sex and Gender Information Value Date Recorded Sex Assigned at Not on file 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
--- OUTSIDE RECORDS SUMMARY | 2024-12-09 12:54 | XMS_ITS | Clinical Summary ---
Author Organization [facility] Address [address] [place] [address] Phone Care Team Providers Care Business Process Modeler Name Role Phone Srinivasa Anderson MD Primary Care Provider [phone] Allergies No known active allergies Medications Syringe [...] 3 Active fluticasone propionate (FLONASE) 50 mcg/spray [place], Suspension nasal inhaler 1 SPRAY EACH NOSTRIL [...] WRITTEN ON 10/31/2022 11:36 AM BY GABRIELA EWING, MARIA C 10/30/22: 34 mm Medtronic [...] Type Department Care Team Description 10/30/[address] [facility] [employer] [place] [place] [address] Srinivasa Anderson MD Needs Orders Written 10/27/2024 External Device Data ST[place] ABSTRACTION Provider, Abstract 10/12/2024 Orders Only [facility] Information [facility] [address] [place] [address] Provider, Abstract 09/29/2024 External Device Data STL ABSTRACTION Provider, Abstract 09/15/2024 Orders Only [facility] [employer] [facility] [address] [place] [address] Provider, Abstract 09/10/2024 External Device Data STL ABSTRACTION Provider, Abstract from Last 3 Months Immunizations Immunization Administration [...] on file Legal Sex Male 6:28 AM COMPOSITE ASSEMBLER Gender Identity Not on file Sexual [...] Care Team (Late st Contact Info) Description 12/25/2024 1:30 PM CDT Office Visit [facility] [place] [place] [address] Srinivasa Anderson MD [address] [place] [address] 01/12/2025 8:15 AM CDT Procedure visit [facility] [address] [place] [address] Mariela Stone MD [address] [place] [address] 03/26/2025 11:40 AM COMPOSITE ASSEMBLER Office Visit [facility] [address] [place] [address] Dominic Haskins CRNP [address], [address] [place] [address] 07/08/2025 1:00 PM CDT Office Visit [facility] [address] [place] [address] Kodak Samuel MD [address] [place] [phone] Health Maintenance Due Date Last Done Comments ZOSTER VACCINE (2 of 3) 02/14/2012 12/20/2011 RSV VACCINE (60+ or ) (1 - 1-dose 75+ series) 2012 DIABETES ANNUAL FOOT EXAM 03/19/2018 03/19/2017, 09/2015 DIABETES MICROALBUMIN ANNUAL SCREEN 11/08/2020 11/09/2019, 12/19/2018, 08/20/2018, Additional history exists DIABETES ANNUAL RETINAL EXAM 07/17/2023, 05/01/2021, 09/03/2019, Additional history exists COVID-19 Vaccine (2023-2 5 season) 2023 11/08/2020, 07/15/2020 Traditional Medicare (O) A nnual Wellness Visit 06/13/2024 06/12/2023 INFLUENZA [...] history exists Medical Devices Implanted Type Area Senior Program Manager Device Identifier Shelf Expiration Date Model / Serial / Lot Dev Naomi Closure 35mm Watchman Flx [id number] - [id number] Implanted:Qty : 1 on 08/13/2022 at [facility] Cardiovascular Device N/A: Heart [employer] 10/25/2023 [id number] 350 / [id number] / [id number] Mitraclip G4 Dlvry Sys Ntw No Chrg [id number] - [id number] Implanted:Qty : 1 on 02/18/2023 at [facility] Cardiovascular Device Right: Heart [employer] 08/22/2023 [id number] / [id number] / [id number] Closure Perclose Prostyle Sut Mediate 53967-81 - [id number] Implanted:Qty : 1 on 08/13/2022 by Jaden Vital MD at [facility] Closure Device Right: Groin V[employer]ASCO- VASC DEVICE 04/21/2024 [id number] / / [id number] Dev Manta Vasc Closure 18fr 2114 - [id number] Implanted:Qty : 1 on 10/30/2022 at [facility] Closure Device Right: Groin TELE[employer] INC 04/05/2023 2115 / / [id number] Dev Sealangio Vip 8fr [id number] - [id number] Implanted:Qty : 1 on 10/30/2022 at [facility] Closure Device Left: Groin [facility]ELASCO [facility] [employer] 11/19/2022 [id number] / / [id number] Closure Perclose Prostyle Sut Mediate 76023-73 - [id number] Implanted:Qty : 1 on 02/18/2023 at [facility] Closure Device Right: Groin [employer]- VASC DEVICE 10/19/2024 [id number] / / [id number] Closure Perclose Prostyle Sut Mediate 50193-12 - [id number] Implanted:Qty : 1 on 02/18/2023 at [facility] Closure Device Right: Groin [employer]- VASC DEVICE 10/19/2024 [id number] / / [id number] Lens Io Tecnis 1pc 22.0 [id number] - [id number] Implanted:Qty : 1 on 08/23/2016 by Dominic Peralta MD Eye Left: Eye [employer] 10/20/2019 [id number] 20 / [id number] / Lens Io Tecnis 1pc 22.5 [id number] - [id number] Implanted:Qty : 1 on 09/06/2016 by Dominic Peralta MD Eye Right: Eye [employer] 12/19/2019 [id number] 25 / [id number] / Mesh Plug Perfix Xlg [id number] - [id number] Implanted:Qty : 1 on 08/13/2023 by Franci Kaplan Jr., MD at [facility] Mesh Left: Abdomen BARD DAVOL [id number] 01/18/2028 [id number] / / [id number] Pacemaker Micra Vr 23fr 105cm Transcath Pacing Sys [id number] - [id number] Implanted:Qty : 1 on 10/30/2022 by Mariela Stone MD at [facility] Pacemaker Heart [employer] 01/04/2024 [id number] / [id number] / Vlv Aort Evolut Fx Tavr 34mm Evolutfx-34 - [id number] Implanted:Qty : 1 on 10/30/2022 at [facility] Valve N/A: Heart [employer]- HEART VALVE 06/07/2024 EVOLUTFX -34 / [id number] / Dlvry Sys Evolut Fx 34mm [id number] - [id number]\E\240d-Evol utfx-34 Implanted:Qty : 1 on 10/30/2022 at [facility] Valve N/A: Heart [employer]- HEART VALVE 02/02/2024 D-EVOLUT FX-34 / \E\240D- EVOLUTFX -34 / [id number] Leadless Ppm Procedures Procedure Name Priority Date/Time Associated Diagnosis Comments COMPREHENSIVE METABOLIC PANEL Routine 10/05/2024 9:58 AM CDT LIPID PANEL Routine 08/03/2024 11:38 AM CDT Mixed hyperlipidemia HEMOGLOBIN A1C Routine 08/03/2024 11:38 AM CDT Type 2 diabetes mellitus without complication, without long-term current use of insulin ([facility]/HCC) COLONOSCOPY REPORT 11/30/2022 11 :16 AM CDT HM DIABETES EYE EXAM Routine 07/16/2022 10:57 AM CDT MICROALBUMIN/CREATINI NE RATIO, RANDOM UR Routine 11/09/2019 9:43 AM CDT from Last 3 Months or Most Recently Relevant to Health Maintenance Results * COMPREHENSIVE METABOLIC PANEL (10/05/2024 9:58 AM CDT) Blood us Abstract Provider CHEMISTRY ORDERABLES Final Res ult * (ABNORMAL) HEMOGLOBIN A1C (08/03/2024 11:38 AM CDT) HEMOGLOBIN A1C 6.2(H) <5.7 % [facility] Comment: For someone without known diabetes, [...] ESTIMATED AVERAGE GLUCOSE (MG/DL) 131 mg/dL [facility] ESTIMATED AVERAGE GLUCOSE (MMOL/L) 7.3 mmol/L [facility] Comment: FASTING:YES FASTING: YES Test Performed at: [facility] [address] [employer] [place] [id number] Arminda Velasco MD Blood 08/03/2024 11:3 8 AM CDT 08/03/2024 11:38 AM CDT us Srinivasa Anderson MD CHEMISTRY ORDERABLES Final Resul t [facility] [phone] [facility] [id number] [address] [phone] * (ABNORMAL) LIPID PANEL (08/03/2024 11:38 AM CDT) CHOLESTEROL 133 <200 mg/dL [facility] RR HDL 36(L) > OR = 40 mg/dL [facility] RR TRIGLYCERIDE 71 <150 mg/dL [facility] RR LDL CALCULATED 82 mg/dL (calc) [facility] RRL Comment: Reference range: <100 Desirable range <100 mg/dL for primary prevention; <70 mg/dL for patients with CHD or diabetic patients with > or = 2 CHD risk factors. LDL-C is now calculated using the eCline calculation, which is a validated novel method providing better accuracy than the Friedewald equation in the estimation of LDL-C. Wilber SS et al. MAGDA. 2013;310(19): 1298-6775 (http://education.Zzish/faq/VSD275) CHOL/HDL RATIO 3.7 <5.0 (calc) [facility] RR NON-HDL CHOLESTEROL 97 <130 mg/dL (calc) [facility] Comment: For patients with diabetes plus 1 major ASCVD risk factor, treating to a non-HDL-C goal of <100 mg/dL (LDL-C of <70 mg/dL) is considered a therapeutic option. Test Performed at: [facility] [address] [place] [address] Александр Oviedo Blood 08/03/2024 11:3 8 AM CDT 08/03/2024 11:38 AM CDT us Srinivasa Anderson MD CHEMISTRY ORDERABLES Final Resul t [facility] [phone] [facility] [address] [place] [address] * COLONOSCOPY REPORT (11/30/2022 11:16 AM CDT) Narrative Procedure Note Herman Schmitz MD - 11/30/2022 11:16 AM CDT [facility] GI Patient Name: Franci Hernandez [...] bowel preparation was evaluated using the BBPS (Gowen Bowel Preparation Scale) with scores of: Right [...] Scope Out: 11:13:34 AM [address] [place], [place] Herman Schmitz MD GI PROCEDURE ORDERABLES Final Result * DIABETES EYE EXAM (07/16/2022 10:57 AM CDT) Abstract Provider HEALTH MAINTENANCE Final Resul t * (ABNORMAL) MICROALBUMIN/CREATININE RATIO, RANDOM UR (11/09/2019 9:43 AM CDT) MICROALBUMIN, URINE 5.3 No Reference Range mg/dL 11/09/2019 9:33 PM CDT [facility] CREATININE, URINE 139.7 40.0 - 278.0 mg/dL 11/09/2019 9:33 PM CDT [facility] Comment:Reference Range vari es with fluid intake and diet. MICROALBUMIN/ CREAT RATIO, UR 37.9(H) <17.0 mg/g 11/09/2019 9:33 PM CDT [facility] Urine URINE SPECIMEN OBTAINED BY CLEAN CATCH PROCEDURE / Unknown Collection / Unknown 11/09/2019 9:43 AM CDT 11/09/2019 8:19 PM CDT Narrative [facility] - 11/09/2019 9:33 PM CDT Condition Microalbumin/Creat ratio Normal Males <17 Normal Females <25 Microalbuminuria Males 17-299 Microalbuminuria Females 25-299 Overt proteinuria >=300 Srinivasa Anderson MD URINE ORDERABLES Final Result [facility]-JESSICA IBARRA# [id number] [address] [place] [address] from Last 3 Months or Most Recently Relevant to Health Maintenance Insurance [address] [place] [address] [facility] [id number] MEDICARE PART A AND B * Guarantor: FRANCI HERNANDEZ Account Type Relation to Patient Date of Phone Billing Address Personal/Family [address] [place] [address] RX ALLWIN DATA Medicare Part B RX DANIELS PLANS (INTERNAL) [facility] Plans RX EXPRESS S[employer]IPTS Medicare Part D Advance Directives For more information, please contact: [phone] * Full Code (Latest Code Status on [...] 5:53 PM 01/29/2023 5:47 PM Care Teams Business Process Modeler Relationship Specialty Start Date End Date Srinivasa Anderson MD [address] [phone] PCP - General Family Practice 05/18/24
--- OUTSIDE RECORDS SUMMARY | 2024-12-09 12:54 | XMS_ITS | Encounter Summary ---
Author Organization [facility] Address [address] [facility] [place] [address] Care Team Providers Care Cordage Sales Representative Name Role Phone Srinivasa Anderson MD Primary Care Provider [phone] Encounter Details Date Type Department Care Team (Latest Contact Info) Description 02/08/2004 Outpatient Historical [facility] Imaging Services-[facility] [address] [place] [address] Mark Lux MD [address] [place] [address] HEMATURIA (Primary Dx) Social History Tobacco Use Types Packs/Day Years Used Date Smoking Tobacco: Never Assessed Sex and Gender Information Value Date Recorded Sex Assigned at Not on file 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
--- OUTSIDE RECORDS SUMMARY | 2024-12-09 12:54 | XMS_ITS | Encounter Summary ---
Author Organization [facility] Address [address] [place] [address] Care Team Providers Care Medical Reviewer Name Role Phone Srinivasa Anderson MD Primary Care Provider [phone] Encounter Details Date Type Department Care Team (Latest Contact Info) Description 09/23/2002 Outpatient Historical [facility] Dermatology- [facility] [place] [address] [place] [address] Zoltan Mahoney MD NO ADDRESS ON FILE MALIG NEOPLASM SKIN EAR (Primary Dx) Social History Tobacco Use Types Packs/Day Years Used Date Smoking Tobacco: Never Assessed Sex and Gender Information Value Date Recorded Sex Assigned at Not on file 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
--- OUTSIDE RECORDS SUMMARY | 2024-12-09 12:54 | XMS_ITS | Encounter Summary ---
Author Organization [facility] Address [address] [place] [address] Care Team Providers Care Magneto Repairer Name Role Phone Srinivasa Anderson MD Primary Care Provider [phone] Encounter Details Date Type Department Care Team (Latest Contact Info) Description 02/08/2004 Outpatient Historical [facility] Imaging Services-Nilay [place]les [place] [address] [place] [address] Mark Lux MD [address] [place] [address] HEMATURIA (Primary Dx) Social History Tobacco Use Types Packs/Day Years Used Date Smoking Tobacco: Never Assessed Sex and Gender Information Value Date Recorded Sex Assigned at Not on file 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
--- OUTSIDE RECORDS SUMMARY | 2024-12-09 12:54 | XMS_ITS | Encounter Summary ---
Author Organization [facility] Address [address] [place] [address] Care Team Providers Care Wreath Machine Operator Name Role Phone Srinivasa Anderson MD Primary Care Provider [phone] Encounter Details Date Type Department Care Team (Latest Contact Info) Description 09/23/2002 Outpatient Historical [facility]- [facility] [place] [address] [place] [phone] Zoltan Mahoney MD NO ADDRESS ON FILE ACTINIC KERATOSIS (Primary Dx); MALIG NEOPLASM SKIN FACE NEC; Inflamed seborr keratos Social History Tobacco Use Types Packs/Day Years Used Date Smoking Tobacco: Never Assessed Sex and Gender Information Value Date Recorded Sex Assigned at Not on file 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 Male 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
--- OUTSIDE RECORDS SUMMARY | 2024-12-09 12:54 | XMS_ITS | Encounter Summary ---
Author Organization [facility] Address [address] [facility] [place] [address] Care Team Providers Care Sort Manager Name Role Phone Srinivasa Anderson MD Primary Care Provider [phone] Encounter Details Date Type Department Care Team (Latest Contact Info) Description 06/28/2004 Outpatient Historical [facility] [place] [place] [address] Srinivasa Anderson MD [address] [place] [address] PULM EMBOLISM/INFARCT IATROGENIC (CMS/HCC) (Primary Dx); PERNICIOUS ANEMIA; Benign amado lg bowel; NOCTURIA Social History Tobacco Use Types Packs/Day Years Used Date Smoking Tobacco: Never Assessed Sex and Gender Information Value Date Recorded Sex Assigned at Not on file 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
--- OUTSIDE RECORDS SUMMARY | 2024-12-09 12:54 | XMS_ITS | Encounter Summary ---
Author Organization [facility] Address [address] [place] [address] Care Team Providers Care Computer Numerical Control Grinder Name Role Phone Srinivasa Anderson MD Primary Care Provider [phone] Encounter Details Date Type Department Care Team (Latest Contact Info) Description 04/25/2004 Outpatient Historical [facility] [place] [place] [address] Srinivasa Anderson MD [address] [place] [address] PULM EMBOLISM/INFARCT NOS (CMS/HCC) (Primary Dx); HYPERTENSION NOS Social History Tobacco Use Types Packs/Day Years Used Date Smoking Tobacco: Never Assessed Sex and Gender Information Value Date Recorded Sex Assigned at Not on file 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
--- OUTSIDE RECORDS SUMMARY | 2024-12-09 12:54 | XMS_ITS | Encounter Summary ---
Author Organization [facility] Address [address] [place] [place] [address] Care Team Providers Care K9 Handler Name Role Phone Srinivasa Anderson MD Primary Care Provider [phone] Encounter Details Date Type Department Care Team (Latest Contact Info) Description 03/25/2003 Outpatient Historical [facility] Dermatology- [facility] [place] [address] [place] [address] Zoltan Mahoney MD NO ADDRESS ON FILE ACTINIC KERATOSIS (Primary Dx); Inflamed seborr keratos; SEBORRHEIC KERATOSIS NOS Social History Tobacco Use Types Packs/Day Years Used Date Smoking Tobacco: Never Assessed Sex and Gender Information Value Date Recorded Sex Assigned at Not on file 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
--- OUTSIDE RECORDS SUMMARY | 2024-12-09 12:54 | XMS_ITS | Encounter Summary ---
Author Organization [facility] Address [address] [facility] [address] Care Team Providers Care Database Designer Name Role Phone Srinivasa Anderson MD Primary Care Provider [phone] Encounter Details Date Type Department Care Team (Latest Contact Info) Description 01/26/2005 Outpatient Historical [facility] [address] [place] [address] Srinivasa Anderson MD [address] [place] [address] ANXIETY STATE NOS (Primary Dx); IMPOTENCE, ORGANIC ORIGN; MALAISE AND FATIGUE NEC; TESTICULAR HYPOFUNC NEC Social History Tobacco Use Types Packs/Day Years Used Date Smoking Tobacco: Never Assessed Sex and Gender Information Value Date Recorded Sex Assigned at Not on file 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
--- OUTSIDE RECORDS SUMMARY | 2024-12-09 12:54 | XMS_ITS | Encounter Summary ---
Author Organization [facility] Address [address] [place] [address] Care Team Providers Care Resin Filterer Name Role Phone Srinivasa Anderson MD Primary Care Provider [phone] Encounter Details Date Type Department Care Team (Latest Contact Info) Description 02/17/2004 Outpatient Historical [facility] Imaging Services-[place] [address] [place] [address] Mark Lux MD [address] [place] [address] ABNORMAL FINDINGS- ORGANS (Primary Dx) Social History Tobacco Use Types Packs/Day Years Used Date Smoking Tobacco: Never Assessed Sex and Gender Information Value Date Recorded Sex Assigned at Not on file 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
--- OUTSIDE RECORDS SUMMARY | 2024-12-09 12:54 | XMS_ITS | Encounter Summary ---
Author Organization [facility] Address [address] [facility] [place] [address] Care Team Providers Care Head Strength And Conditioning Coach Name Role Phone Srinivasa Anderson MD Primary Care Provider [phone] Encounter Details Date Type Department Care Team (Latest Contact Info) Description 02/15/2004 Outpatient Historical [facility] Imaging Services-Nilay Robles [place] [address] [place] [address] Mark Lux MD [address] [place] [address] HEMATURIA (Primary Dx) Social History Tobacco Use Types Packs/Day Years Used Date Smoking Tobacco: Never Assessed Sex and Gender Information Value Date Recorded Sex Assigned at Not on file 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
--- OUTSIDE RECORDS SUMMARY | 2024-12-09 12:54 | XMS_ITS | Encounter Summary ---
Author Organization [facility] Address [address] [facility] [place] [address] Care Team Providers Care Dispatch Officer Name Role Phone Srinivasa Anderson MD Primary Care Provider [phone] Encounter Details Date Type Department Care Team (Latest Contact Info) Description 10/26/2004 Outpatient Historical [facility] [place] [place] [address] Srinivasa Anderson MD [address] [place] [address] TESTICULAR HYPOFUNC NEC (Primary Dx) Social History Tobacco Use Types Packs/Day Years Used Date Smoking Tobacco: Never Assessed Sex and Gender Information Value Date Recorded Sex Assigned at Not on file 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
--- OUTSIDE RECORDS SUMMARY | 2024-12-09 12:54 | XMS_ITS ---
Author Organization [facility] Address [address] [place] [address] Care Team Providers Care Shower Doors And Panels Fabricator Name Role Phone Srinivasa Anderson MD Primary Care Provider [phone] Active Problems Problem Noted Date Diagnosed Date [...]
--- OUTSIDE RECORDS SUMMARY | 2024-12-09 12:54 | XMS_ITS | Encounter Summary ---
Author Organization [facility] Address [address] [facility] [place] [address] Care Team Providers Care Control Systems Engineer Name Role Phone Srinivasa Anderson MD Primary Care Provider [phone] Encounter Details Date Type Department Care Team (Latest Contact Info) Description 12/27/2004 Outpatient Historical [facility] [place] [place] [address] Srinivasa Anderson MD [address] [place] [address] TESTICULAR HYPOFUNC NEC (Primary Dx) Social History Tobacco Use Types Packs/Day Years Used Date Smoking Tobacco: Never Assessed Sex and Gender Information Value Date Recorded Sex Assigned at Not on file 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
--- OUTSIDE RECORDS SUMMARY | 2024-12-09 12:54 | XMS_ITS | Encounter Summary ---
Author Organization [facility] Address [address] [facility] [place] [address] Care Team Providers Care Machine Featheredger And Reducer Name Role Phone Srinivasa Anderson MD Primary Care Provider [phone] Encounter Details Date Type Department Care Team (Latest Contact Info) Description 10/03/2004 Outpatient Historical [facility] [place] [place] [address] Srinivasa Anderson MD [address] [place] [address] HYPERTENSION NOS (Primary Dx); Plantar fibromatosis; OTHER MALAISE AND FATIGUE; Toxic effect venom Social History Tobacco Use Types Packs/Day Years Used Date Smoking Tobacco: Never Assessed Sex and Gender Information Value Date Recorded Sex Assigned at Not on file 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
--- OUTSIDE RECORDS SUMMARY | 2024-12-09 12:54 | XMS_ITS | Encounter Summary ---
Author Organization [facility] Address [address] [place] [facility] [place] [address] Care Team Providers Care Submarine Element Coordinator Name Role Phone Srinivasa Anderson MD Primary Care Provider [phone] Encounter Details Date Type Department Care Team (Late st Contact Info) Description 03/30/2004 Outpatient Historical [facility] Urology- [place] [address] [address] [place] [address] Erasmo Rosas MD NO ADDRESS ON FILE OTHER SPEC DISORDER URINARY TRACT (Primary Dx) Social History Tobacco Use Types Packs/Day Years Used Date Smoking Tobacco: Never Assessed Sex and Gender Information Value Date Recorded Sex Assigned at Not on file 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
--- OUTSIDE RECORDS SUMMARY | 2024-12-09 12:54 | XMS_ITS | Encounter Summary ---
Author Organization [facility] Address [address] [place] [address] Care Team Providers Care Irrigation Installation Specialist Name Role Phone Srinivasa Anderson MD Primary Care Provider [phone] Encounter Details Date Type Department Care Team (Latest Contact Info) Description 11/06/[address] 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 Gender Identity Not on file Sexual Orientation Not on file documented as of this encounter Plan of Treatment Not on file documented as of this encounter Visit Diagnoses Diagnosis Unspecified essential hypertension- Primary Pure hypercholesterolem Pure hypercholesterolemia Other malaise and fatigue Need for prophylactic vaccination against Streptococcus pneumoniae (pneumococcus) Need for prophylactic vaccination against streptococcus pneumoniae (pneumococcus) documented in this encounter Care Teams Irrigation Installation Specialist Relationship Specialty Start Date End Date Srinivasa Anderson MD [address] [place] [address] PCP - General 07/18/04 documented as of this encounter
--- OUTSIDE RECORDS SUMMARY | 2024-12-09 12:54 | XMS_ITS | Encounter Summary ---
Author Organization [facility] Address [address] [facility] [place] [address] Care Team Providers Care Director Shopper Marketing Name Role Phone Srinivasa Anderson MD Primary Care Provider [phone] Encounter Details Date Type Department Care Team (Latest Contact Info) Description 11/10/2003 Outpatient Historical [facility] Imaging Services-Nilay Robles [place] [address] [place] [address] Mark Lux MD [address] [place] [address] HYPERTENSION NOS (Primary Dx) Social History Tobacco Use Types Packs/Day Years Used Date Smoking Tobacco: Never Assessed Sex and Gender Information Value Date Recorded Sex Assigned at Not on file 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
--- OUTSIDE RECORDS SUMMARY | 2024-12-09 12:54 | XMS_ITS | Encounter Summary ---
Author Organization [facility] Address [address] [facility] [address] Care Team Providers Care Delivery Manager Name Role Phone Srinivasa Anderson MD Primary Care Provider [phone] Encounter Details Date Type Department Care Team (Late st Contact Info) Description 04/17/2007 Outpatient Historical [facility] [place] [place] [address] Srinivasa Anderson MD [address] [place] [address] Social History Tobacco Use Types Packs/Day Years Used Date Smoking Tobacco: Never Assessed Sex and Gender Information Value Date Recorded Sex Assigned at Not on file 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
--- OUTSIDE RECORDS SUMMARY | 2024-12-09 12:54 | XMS_ITS | Encounter Summary ---
Author Organization [facility] Address [address] [facility] [place] [address] Care Team Providers Care Room Maid Name Role Phone Srinivasa Anderson MD Primary Care Provider [phone] Encounter Details Date Type Department Care Team (Latest Contact Info) Description 10/26/2004 Outpatient Historical [facility] Dermatology- [facility] [place] [address] [place] [address] Zoltan Mahoney MD NO ADDRESS ON FILE Malig amado skin arm (Primary Dx); ACTINIC KERATOSIS; Inflamed seborr keratos; SEBORRHEIC KERATOSIS NOS Social History Tobacco Use Types Packs/Day Years Used Date Smoking Tobacco: Never Assessed Sex and Gender Information Value Date Recorded Sex Assigned at Not on file 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 Gender Identity Not on file Sexual Orientation Not on file documented as of this encounter Plan of Treatment Not on file documented as of this encounter Visit Diagnoses Diagnosis 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
--- OUTSIDE RECORDS SUMMARY | 2024-12-09 12:54 | XMS_ITS | Encounter Summary ---
Author Organization [facility] Address [address] [place] [address] Care Team Providers Care Dictaphone Mechanic Name Role Phone Srinivasa Anderson MD Primary Care Provider [phone] Encounter Details Date Type Department Care Team (Latest Contact Info) Description 07/18/2004 Outpatient Historical [facility] Endoscopy [place] [address] [facility] [address] [place] [address] Ar Stanton MD NO ADDRESS ON FILE INT HEMORRHOID W/O COMPL (Primary Dx) Social History Tobacco Use Types Packs/Day Years Used Date Smoking Tobacco: Never Assessed Sex and Gender Information Value Date Recorded Sex Assigned at Not on file 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
--- OUTSIDE RECORDS SUMMARY | 2024-12-09 12:54 | XMS_ITS | Encounter Summary ---
Author Organization [facility] Address [address] [place] [facility] [place] [address] Care Team Providers Care Ambulatory Care Coordinator Name Role Phone Srinivasa Anderson MD Primary Care Provider [phone] Encounter Details Date Type Department Care Team (Latest Contact Info) Description 01/17/2005 Outpatient Historical [facility] Podiatry-Nil[place] Robles [place] [address] [place] [address] Juma Eng, DPM [address] [place] [address] GANGLION OF JOINT (Primary Dx); BUNION; EXOSTOSIS, SITE NOS Social History Tobacco Use Types Packs/Day Years Used Date Smoking Tobacco: Never Assessed Sex and Gender Information Value Date Recorded Sex Assigned at Not on file 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
--- OUTSIDE RECORDS SUMMARY | 2024-12-09 12:54 | XMS_ITS | Encounter Summary ---
Author Organization [facility] Address [address] [facility] [place] [address] Care Team Providers Care Contract Project Manager Name Role Phone Srinivasa Anderson MD Primary Care Provider [phone] Encounter Details Date Type Department Care Team (Latest Contact Info) Description 04/05/2003 Outpatient Historical [facility] Imaging Services-Nilay Robles [place] [address] [place] [address] Mark Lux MD [address] [place] [address] ABDOMINAL PAIN EPIGASTRIC (Primary Dx) Social History Tobacco Use Types Packs/Day Years Used Date Smoking Tobacco: Never Assessed Sex and Gender Information Value Date Recorded Sex Assigned at Not on file 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
--- OUTSIDE RECORDS SUMMARY | 2024-12-09 12:54 | XMS_ITS | Encounter Summary ---
Author Organization [facility] Address [address] [place] [address] Care Team Providers Care Food Or Baggage Handling Rampman Name Role Phone Srinivasa Anderson MD Primary Care Provider [phone] Encounter Details Date Type Department Care Team (Late st Contact Info) Description 05/15/2007 Outpatient [facility] [place] [place] [address] Srinivasa Anderson MD [address] [place] [address] Social History Tobacco Use Types Packs/Day Years Used Date Smoking Tobacco: Never Assessed Sex and Gender Information Value Date Recorded Sex Assigned at Not on file 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
--- OUTSIDE RECORDS SUMMARY | 2024-12-09 12:54 | XMS_ITS | Encounter Summary ---
Author Organization [facility] Address [address] [facility] [place] [address] Care Team Providers Care Advertising Operations Manager Name Role Phone Srinivasa Anderson MD Primary Care Provider [phone] Encounter Details Date Type Department Care Team (Latest Contact Info) Description 07/18/2004 Outpatient [facility] Gastroenterology- [place] [address] [place] [address] Ar Stanton MD NO ADDRESS ON FILE FOLLOW-UP EXAM NOS (Primary Dx); PERS HX COLONIC POLYPS; Diverticulosis of colon; INT HEMORRHOID W/O COMPL Social History Tobacco Use Types Packs/Day Years Used Date Smoking Tobacco: Never Assessed Sex and Gender Information Value Date Recorded Sex Assigned at Not on file 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 Gender Identity Not on file Sexual Orientation Not on file documented as of this encounter Plan of Treatment Not on file documented as of this encounter Visit Diagnoses Diagnosis Unspecified follow-up examination- Primary Personal history of colonic polyps Diverticulosis of colon Diverticulosis of colon (without mention of hemorrhage) Internal hemorrhoids without mention of complication documented in this encounter Care Teams Advertising Operations Manager Relationship Specialty Start Date End Date Srinivasa Anderson MD [address] [place] [address] PCP - General 07/18/04 documented as of this encounter
--- OUTSIDE RECORDS SUMMARY | 2024-12-09 12:54 | XMS_ITS | Encounter Summary ---
Author Organization [facility] Address [address] [facility] [facility] [place] [address] Care Team Providers Care Purchase Order Checker Name Role Phone Srinivasa Anderson MD Primary Care Provider Encounter Details Date Type Department Care Team (Latest Contact Info) Description 11/24/2004 Outpatient Historical [facility] [place] [place] [address] Srinivasa Anderson MD [address] [place] [address] TESTICULAR HYPOFUNC NEC (Primary Dx) Social History Tobacco Use Types Packs/Day Years Used Date Smoking Tobacco: Never Assessed Sex and Gender Information Value Date Recorded Sex Assigned at Not on file 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
--- OUTSIDE RECORDS SUMMARY | 2024-12-09 12:54 | XMS_ITS | Encounter Summary ---
Author Organization [facility] Address [address] [place] [address] Care Team Providers Care Proposal Manager Writer Name Role Phone Srinivasa Anderson MD Primary Care Provider [phone] Encounter Details Date Type Department Care Team (Latest Contact Info) Description 03/04/2003 Outpatient Historical [facility] Int [facility] [place] [place] [address] Mark Lux MD [address] [place] [address] ABDOMINAL PAIN UNSPEC SITE (Primary Dx); LUMBAGO; ANXIETY STATE NOS Social History Tobacco Use Types Packs/Day Years Used Date Smoking Tobacco: Never Assessed Sex and Gender Information Value Date Recorded Sex Assigned at Not on file 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
--- OUTSIDE RECORDS SUMMARY | 2024-12-09 12:54 | XMS_ITS | Clinical Summary ---
Author Organization 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 Gender Identity Not on file Sexual Orientation Not on file Occupation Industry Job Start Date Job End Date Not on file Not on file Not on file Not on file Last Filed Vital Signs Vital Sign Reading Time Taken Comments Blood Pressure 118/84 06/23/2020 11:43 AM PERFORMANCE IMPROVEMENT ANALYST Pulse 60 06/23/2020 11:43 AM PERFORMANCE IMPROVEMENT ANALYST Temperature 36.4 C (97.6 F) 02/19/2020 3:25 PM CDT Respiratory Rate 16 02/19/2020 3:25 PM CDT Oxygen Saturation 99% 06/23/2020 11:43 AM PERFORMANCE IMPROVEMENT ANALYST Inhaled Oxygen Concentration - - Weight 78.5 kg (173 lb) 06/23/2020 11:43 AM PERFORMANCE IMPROVEMENT ANALYST Height 191.8 cm (6' 3.5 ) 06/23/2020 11:43 AM CS T Body Mass Index 21.34 06/23/2020 11:43 AM PERFORMANCE IMPROVEMENT ANALYST Plan of Treatment Health Maintenance Due Date [...] history exists Medical Devices Implanted Type Area Store Detective Device Identifier Shelf Expiration Date Model / Serial / Lot Lens Io Tecnis 1pc 22.0 [id number] - [id number] Implanted:Qty: 1 on 08/23/2016 by Dominic Peralta MD at [facility] Left: Eye [employer] 10/20/2019 [id number] / [id number] / Lens Io Tecnis 1pc 22.5 [id number] - [id number] Implanted:Qty: 1 on 09/06/2016 by Dominic Peralta MD at [facility] Right: Eye [employer] 12/19/2019 [id number] / [id number] / Procedures Procedure Name Priority Date/Time Associated Diagnosis Comments MICROALBUMIN/CREATI NINE RATIO, RANDOM UR Routine 11/09/2019 9:43 AM CDT Diabetic polyneuropathy associated with type 2 diabetes mellitus ([facility]) LIPID PANEL Routine 11/09/2019 9:43 AM CDT Diabetic polyneuropathy associated with type 2 diabetes mellitus ([facility]) HEMOGLOBIN A1C Routine 11/09/2019 9:43 AM CDT Diabetic polyneuropathy associated with type 2 diabetes mellitus ([facility]) HM DIABETES EYE EXAM Routine 11/17/2018 ENDOSCOPY, COLON, SCREENING Routine 08/12/2009 10:57 AM CDT Special Screening for Malignant Neoplasms, Colon from Last 3 Months or Most Recently Relevant to Health Maintenance Results * (ABNORMAL) MICROALBUMIN/CREATININE RATIO, RANDOM UR (11/09/2019 9:43 AM CDT) MICROALBUMIN, URINE 5.3 No Reference Range mg/dL 11/09/2019 9:33 PM CDT [facility] CREATININE, URINE 139.7 40.0 - 278.0 mg/dL 11/09/2019 9:33 PM CDT [facility] Comment:Reference Range vari es with fluid intake and diet. MICROALBUMIN/ CREAT RATIO, UR 37.9(H) <17.0 mg/g 11/09/2019 9:33 PM CDT [facility] Urine URINE SPECIMEN OBTAINED BY CLEAN CATCH PROCEDURE / Unknown Collection / Unknown 11/09/2019 9:43 AM CDT 11/09/2019 8:19 PM CDT [facility] - 11/09/2019 9:33 PM CDT Condition Microalbumin/Creat ratio Normal Males <17 Normal Females <25 Microalbuminuria Males 17-299 Microalbuminuria Females 25-299 Overt proteinuria >=300 us Srinivasa Anderson MD URINE ORDERABLES Final Result [facility] CL[facility]# [id number] [facility] [place] [address] * (ABNORMAL) HEMOGLOBIN A1C (11/09/2019 9:43 AM CDT) HEMOGLOBIN A1C 6.2(H) See Comment % 11/09/2019 9:37 PM CDT [facility] EST. AVG GLUCOSE, A1C 131 mg/dL 11/09/2019 9:37 PM CDT [facility] Blood Venipuncture / Unknown 11/09/2019 9:43 AM CDT 11/09/2019 8:23 PM CDT Narrative [facility] - 11/09/2019 9:37 PM CDT HGB A1C INTERPRETATION NORMAL: <5.7% PRE-DIABETES: 5.7 - 6.4% DIABETES: 6.5% OR GREATER Falsely low A1C measurements can occur when: 1. Anemia and/or hemolytic anemia is present. 2. Hemoglobin variants present. 3. Renal failure. 4. Transfusion of blood product in the last 120 days. We recommend ordering a fructosamine test([id number]) to more accurately assess glycemic status if any of the above conditions are present. us Srinivasa Anderson MD CHEMISTRY ORDERABLES Final Resul t [facility] CLIA# [id number] [address] [place] [address] * (ABNORMAL) LIPID PANEL (11/09/2019 9:43 AM CDT) [facility] CHOLESTEROL 189 <200 mg/dL 11/09/2019 9:10 PM CDT [facility] TRIGLYCERIDE 102 <150 mg/dL 11/09/2019 9:10 PM T [facility] HDL 47 40 - 59 mg/dL 11/09/2019 9:10 PM T [facility] LDL CALCULATED 122(H) <100 mg/dL 11/09/2019 9:10 PM T [facility] NON-HDL CHOLESTEROL 142(H) <130 mg/dL 11/09/2019 9:10 PM T [facility] Blood Venipuncture / Unknown 11/09/2019 9:43 AM CDT 11/09/2019 8:24 PM CDT [facility] - 11/09/2019 9:10 [...] Anderson MD CHEMISTRY ORDERABLES Final Resul t [facility]# [id number] [address] [place] [address] * DIABETES EYE EXAM (11/17/2018) us Abstract Spg Provider HEALTH MAINTENANCE Final R esult from Last 3 Months or Most Recently Relevant to Health Maintenance Insurance [address] [place] [address] MEDICARE PART A AND B [facility] [address] [place] [address] RX [employer] RX Member Subscriber Plan / Payer (Ef fective 2005-Present) Name:Moiz Hernandez Relation to Subscriber:Self Name:Moiz Hernandez Payer ID:Not on file Group ID:[id number] Type:RX Medicare Part D Address: [place] [address] [facility] Medicare Part B Advance Directives For more information, please contact: [phone] Documents on File Type Date Recorded 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
--- OUTSIDE RECORDS SUMMARY | 2024-12-09 12:55 | XMS_ITS | Encounter Summary ---
Author Organization [facility] Address [address] [place] [facility] [place] [address] Care Team Providers Care Science Job Titles Name Role Phone Srinivasa Anderson MD Primary Care Provider [phone] Encounter Details Date Type Department Care Team (Latest Contact Info) Description 05/22/2005 Outpatient Historical [facility] [place] [place] [address] Srinivasa Anderson MD [address] [place] [address] TESTICULAR HYPOFUNC NEC (Primary Dx); FOLLOW-UP EXAM NOS Social History Tobacco Use Types Packs/Day Years Used Date Smoking Tobacco: Never Assessed Sex and Gender Information Value Date Recorded Sex Assigned at Not on file 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
--- OUTSIDE RECORDS SUMMARY | 2024-12-09 12:55 | XMS_ITS | Encounter Summary ---
Author Organization [facility] Address [address] [facility] [address] Care Team Providers Care Supervisor Mixing Name Role Phone Srinivasa Anderson MD Primary Care Provider [phone] Encounter Details Date Type Department Care Team (Late st Contact Info) Description 11/05/2000 Outpatient Historical [facility] [place] [place] [address] Yfn Hahn MD [address] [place] [address] Allergic rhinitis, cause unspecified (Primary Dx); Unspecified essential hypertension Social History Tobacco Use Types Packs/Day Years Used Date Smoking Tobacco: Never Assessed Sex and Gender Information Value Date Recorded Sex Assigned at Not on file Legal Sex Male 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
--- OUTSIDE RECORDS SUMMARY | 2024-12-09 12:55 | XMS_ITS | Encounter Summary ---
Author Organization [facility] Address [address] [facility] [address] Care Team Providers Care English As A Second Language Teacher Name Role Phone Srinivasa Anderson MD Primary Care Provider [phone] Encounter Details Date Type Department Care Team (Late st Contact Info) Description 10/21/2000 Outpatient Historical [facility] Int [facility] [place] [place] [address] Yfn Hahn MD [address] [place] [address] Routine medical exam (Primary Dx) Social History Tobacco Use Types Packs/Day Years Used Date Smoking Tobacco: Never Assessed Sex and Gender Information Value Date Recorded Sex Assigned at Not on file 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
--- OUTSIDE RECORDS SUMMARY | 2024-12-09 12:55 | XMS_ITS | Encounter Summary ---
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 Social History Tobacco Use Types Packs/Day Years Used Date Smoking Tobacco: Never Assessed Sex and Gender Information Value Date Recorded Sex Assigned at Not on file 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
--- OUTSIDE RECORDS SUMMARY | 2024-12-09 12:55 | XMS_ITS | Encounter Summary ---
Author Organization [facility] Address [address] [facility] [place] [address] Care Team Providers Care Pharmaceutical Sales Name Role Phone Srinivasa Anderson MD Primary Care Provider [phone] Encounter Details Date Type Department Care Team (Latest Contact Info) Description 09/08/2002 Outpatient Historical [facility] Robbi Post MD [address] 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
--- OUTSIDE RECORDS SUMMARY | 2024-12-09 12:55 | XMS_ITS | Encounter Summary ---
Author Organization [facility] Address [address] [facility] [place] [address] Care Team Providers Care Strategic Consultant Name Role Phone Srinivasa Anderson MD Primary Care Provider [phone] Encounter Details Date Type Department Care Team (Latest Contact Info) Description 11/10/2003 Outpatient Historical [facility] [place] [place] [address] Mark Lux MD [address] [place] [address] HYPERTENSION NOS (Primary Dx); Pure hypercholesterolem; B12 DEFIC ANEMIA NEC Social History Tobacco Use Types Packs/Day Years Used Date Smoking Tobacco: Never Assessed Sex and Gender Information Value Date Recorded Sex Assigned at Not on file 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
--- OUTSIDE RECORDS SUMMARY | 2024-12-09 12:55 | XMS_ITS | Encounter Summary ---
Author Organization [facility] Address [address] [place] [address] Care Team Providers Care Substation Operator Automatic Name Role Phone Srinivasa Anderson MD Primary Care Provider [phone] Encounter Details Date Type Department Care Team (Latest Contact Info) Description 02/14/2005 Outpatient Historical [facility] [address] [place] [address] Shelia Alberto, RN NO ADDRESS ON FILE SCREENING-CARDIOVAS C NEC (Primary Dx) Social History Tobacco Use Types Packs/Day Years Used Date Smoking Tobacco: Never Assessed Sex and Gender Information Value Date Recorded Sex Assigned at Not on file 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
--- OUTSIDE RECORDS SUMMARY | 2024-12-09 12:55 | XMS_ITS | Encounter Summary ---
Author Organization [facility] Address [address] [facility] [place] [address] Care Team Providers Care Slitting Machine Feeder Name Role Phone Srinivasa Anderson MD Primary Care Provider [phone] Encounter Details Date Type Department Care Team (Latest Contact Info) Description 08/04/2002 Outpatient Historical [facility] [place] [place] [address] Mark Lux MD [address] [place] [address] JOINT PAIN-PELVIS (Primary Dx) Social History Tobacco Use Types Packs/Day Years Used Date Smoking Tobacco: Never Assessed Sex and Gender Information Value Date Recorded Sex Assigned at Not on file 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
--- OUTSIDE RECORDS SUMMARY | 2024-12-09 12:55 | XMS_ITS | Encounter Summary ---
Author Organization [facility] Address [address] [facility] [place] [address] Care Team Providers Care Hotel Maid Name Role Phone Srinivasa Anderson MD Primary Care Provider [phone] Encounter Details Date Type Department Care Team (Latest Contact Info) Description 05/08/2001 Outpatient Historical [facility] Int [facility] [place] [place] [address] Mark Lxu MD [address] [place] [address] HYPERTENSION NOS (Primary Dx); AFTERCARE DATA MANAGEMENT SPECIALIST ANTICOAG USE; PULM EMBOLISM/INFARCT IATROGENIC (CMS/HCC) Social History Tobacco Use Types Packs/Day Years Used Date Smoking Tobacco: Never Assessed Sex and Gender Information Value Date Recorded Sex Assigned at Not on file 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 Gender Identity Not on file Sexual Orientation Not on file documented as of this encounter Plan of Treatment Not on file documented as of this encounter Visit Diagnoses Diagnosis Unspecified essential hypertension- Primary vermin exterminator (current) use of anticoagulants Long-term (current) use of anticoagulants 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
--- OUTSIDE RECORDS SUMMARY | 2024-12-09 12:55 | XMS_ITS | Encounter Summary ---
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 (Primary Dx); Other seborrheic keratosis Social History Tobacco Use Types Packs/Day Years Used Date Smoking Tobacco: Never Assessed Sex and Gender Information Value Date Recorded Sex Assigned at Not on file 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
--- OUTSIDE RECORDS SUMMARY | 2024-12-09 12:55 | XMS_ITS | Encounter Summary ---
Author Organization [facility] Address [address] [facility] [place] [address] Care Team Providers Care Lead Architect Name Role Phone Srinivasa Anderson MD Primary Care Provider [phone] Encounter Details Date Type Department Care Team (Latest Contact Info) Description 06/29/1999 Outpatient Historical [facility] Dermat[facility]- [facility] [place] [address] [place] [phone] Zoltan Mahoney MD NO ADDRESS ON FILE Actinic keratosis (Primary Dx); Malig amado skin arm; Inflamed seborr keratos Social History Tobacco Use Types Packs/Day Years Used Date Smoking Tobacco: Never Assessed Sex and Gender Information Value Date Recorded Sex Assigned at Not on file 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
--- OUTSIDE RECORDS SUMMARY | 2024-12-09 12:55 | XMS_ITS | Encounter Summary ---
Author Organization [facility] Address [address] [place] [address] Care Team Providers Care Home Care Manager Rn Name Role Phone Srinivasa Anderson MD Primary Care Provider [phone] Encounter Details Date Type Department Care Team (Latest Contact Info) Description 03/27/2005 Outpatient Historical [facility] Derm[facility]- [facility] [place] [address] [place] [address] Zoltan Mahoney MD NO ADDRESS ON FILE ACTINIC KERATOSIS (Primary Dx); Inflamed seborr keratos; SEBORRHEIC KERATOSIS NOS; Malig amado skin arm Social History Tobacco Use Types Packs/Day Years Used Date Smoking Tobacco: Never Assessed Sex and Gender Information Value Date Recorded Sex Assigned at Not on file 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 Gender Identity Not on file Sexual Orientation Not on file documented as of this encounter Plan of Treatment Not on file documented as of this encounter Visit Diagnoses Diagnosis Actinic keratosis- Primary Inflamed seborr keratos Inflamed seborrheic keratosis Other seborrheic keratosis Malig amado skin arm 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
--- OUTSIDE RECORDS SUMMARY | 2024-12-09 12:55 | XMS_ITS | Encounter Summary ---
Author Organization [facility] Address [address] [place] [address] Care Team Providers Care Erp Engineer Name Role Phone Srinivasa Anderson MD Primary Care Provider [phone] Encounter Details Date Type Department Care Team (Latest Contact Info) Description 10/01/1997 Outpatient Historical [facility] Dermatology- [facility] [place] [address] [place] [phone] Zoltan Mahoney MD NO ADDRESS ON FILE Actinic keratosis (Primary Dx); 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 Social History Tobacco Use Types Packs/Day Years Used Date Smoking Tobacco: Never Assessed Sex and Gender Information Value Date Recorded Sex Assigned at Not on file 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
--- OUTSIDE RECORDS SUMMARY | 2024-12-09 12:55 | XMS_ITS | Encounter Summary ---
Author Organization [facility] Address [address] [place] [address] Care Team Providers Care Africana Studies Professor Name Role Phone Srinivasa Anderson MD Primary Care Provider [phone] Encounter Details Date Type Department Care Team (Latest Contact Info) Description 04/18/2005 Outpatient Historical [facility] [place] [place] [address] Srinivasa Anderson MD [address] [place] [address] TESTICULAR HYPOFUNC NEC (Primary Dx) Social History Tobacco Use Types Packs/Day Years Used Date Smoking Tobacco: Never Assessed Sex and Gender Information Value Date Recorded Sex Assigned at Not on file 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
--- OUTSIDE RECORDS SUMMARY | 2024-12-09 12:55 | XMS_ITS | Encounter Summary ---
Author Organization [facility] Address [address] [place] [address] Care Team Providers Care Passenger Car Cleaning Supervisor Name Role Phone Srinivasa Anderson MD Primary Care Provider [phone] Encounter Details Date Type Department Care Team (Latest Contact Info) Description 08/19/2001 Outpatient Historical [facility]- [facility] [place] [address] [place] [phone] Zoltan Mahoney MD NO ADDRESS ON FILE Malig amado scalp/skin neck (Primary Dx); SEBORRHEIC KERATOSIS NOS Social History Tobacco Use Types Packs/Day Years Used Date Smoking Tobacco: Never Assessed Sex and Gender Information Value Date Recorded Sex Assigned at Not on file 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
--- OUTSIDE RECORDS SUMMARY | 2024-12-09 12:55 | XMS_ITS | Encounter Summary ---
Author Organization [facility] Address [address] [place] [address] Care Team Providers Care Tobacco Checkout Clerk Name Role Phone Srinivasa Anderson MD Primary Care Provider [phone] Encounter Details Date Type Department Care Team (Latest Contact Info) Description 2005 Outpatient Historical [facility] [place] [place] [address] Srinivasa Anderson MD [address] [place] [address] Other Testicular Hypofunction (Primary Dx) Social History Tobacco Use Types Packs/Day Years Used Date Smoking Tobacco: Never Assessed Sex and Gender Information Value Date Recorded Sex Assigned at Not on file 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
--- OUTSIDE RECORDS SUMMARY | 2024-12-09 12:55 | XMS_ITS | Encounter Summary ---
Author Organization [facility] Address [address] [place] [address] Care Team Providers Care Coating Machine Helper Name Role Phone Srinivasa Anderson MD Primary Care Provider [phone] Encounter Details Date Type Department Care Team (Latest Contact Info) Description 03/27/2005 Outpatient Historical [facility] [place] [address] [place] [address] [place] [address] Zoltan Mahoney MD NO ADDRESS ON FILE ACTINIC KERATOSIS (Primary Dx) Social History Tobacco Use Types Packs/Day Years Used Date Smoking Tobacco: Never Assessed Sex and Gender Information Value Date Recorded Sex Assigned at Not on file Legal Sex Male 3:[address]FFIC CONTROLLER Gender Identity Not on file Sexual Orientation Not on file documented as of this encounter Plan of Treatment Not on file documented as of this encounter Visit Diagnoses Diagnosis Actinic keratosis- Primary documented in this encounter Care Teams Coating Machine Helper Relationship Specialty Start Date End Date Srinivasa Anderson MD [address] [address] PCP - General 07/18/04 documented as of this encounter
--- OUTSIDE RECORDS SUMMARY | 2024-12-09 12:55 | XMS_ITS | Encounter Summary ---
Author Organization [facility] Address [address] [facility] [place] [address] Care Team Providers Care Supervisor Wood Crew Name Role Phone Srinivasa Anderson MD Primary Care Provider [phone] Encounter Details Date Type Department Care Team (Late st Contact Info) Description 11/27/2000 Outpatient Historical [facility] Yfn Hahn MD [address] [place], [place] [phone] Other pulmonary embolism and infarction (CMS/HCC) (Primary Dx) Social History Tobacco Use Types Packs/Day Years Used Date Smoking Tobacco: Never Assessed Sex and Gender Information Value Date Recorded Sex Assigned at Not on file 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
--- OUTSIDE RECORDS SUMMARY | 2024-12-09 12:55 | XMS_ITS | Encounter Summary ---
Author Organization [facility] Address [address] [place] [address] Care Team Providers Care Senior Major Gifts Officer Name Role Phone Srinivasa Anderson MD Primary Care Provider [phone] Reason for Visit * Reason Onset Date Comments Question 09/13/2022 Encounter Details Date Type Department Care Team (Late st Contact Info) Description 09/13/2022 Telephone [facility] [address] [facility] [address] [place] [address] Jaden Vital MD NO ADDRESS ON FILE Question Social History Tobacco Use Types Packs/Day Years Used Date Smoking Tobacco: Never Smokeless Tobacco: Former Alcohol Use Standard Drinks/Week Comments Yes 1 (1 standard drink = 0.6 oz pur e alcohol) Sex and Gender Information Value Date Recorded Sex Assigned at Not on file Legal Sex Male 6:28 AM ORDNANCE MECHANIC Gender Identity Not on file Sexual [...] Provider: Zahraa Person calling: Sultana Phone #: [phone] Relationship to patient: , PHI not signed [...] Description 12/25/2024 1:30 PM CDT Office Visit [facility] [place] [place] [address] Srinivasa Anderson MD [address] [facility] [address] [place] [address] 01/12/2025 8:15 AM CDT Procedure visit [facility] [address] [place] [address] Mariela Stone MD [address] [place] [address] 03/26/2025 11:40 AM ORDNANCE MECHANIC Office Visit [facility] [address] [place] [address] Dominic Haskins CRNP [address] [place] [address] 07/08/2025 1:00 PM CDT Office Visit [facility] [address] [place] [address] Kodak Samuel MD [address] [place] [phone] documented as of this encounter Visit Diagnoses Not on filedocumented in this encounter Care Teams Senior Major Gifts Officer Relationship Specialty Start Date End Date Srinivasa Anderson MD [address] [facility] [address] [place] [address] PCP - General Family Practice 05/18/24 documented as of this encounter
--- OUTSIDE RECORDS SUMMARY | 2024-12-09 12:55 | XMS_ITS | Encounter Summary ---
Author Organization [facility] Address [address] [facility] [address] [address] 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
--- OUTSIDE RECORDS SUMMARY | 2024-12-09 12:55 | XMS_ITS | Encounter Summary ---
Author Organization [facility] Address [address] [facility] [place] [address] Care Team Providers Care Transformation Coach Name Role Phone Srinivasa Anderson MD Primary Care Provider [phone] Encounter Details Date Type Department Care Team (Latest Contact Info) Description 06/13/2005 Outpatient Historical [facility] [place] [place] [address] Srinivasa Anderson MD [address] [place] [address] TESTICULAR HYPOFUNC NEC (Primary Dx) Social History Tobacco Use Types Packs/Day Years Used Date Smoking Tobacco: Never Assessed Sex and Gender Information Value Date Recorded Sex Assigned at Not on file 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
--- OUTSIDE RECORDS SUMMARY | 2024-12-09 12:55 | XMS_ITS | Encounter Summary ---
Author Organization [facility] Address [address] [address] Care Team Providers Care Entry Level Mechanical Engineer Name Role Phone Srinivasa Anderson MD Primary Care Provider [phone] Encounter Details Date Type Department Care Team (Latest Contact Info) Description 10/14/2001 Outpatient Historical [facility]-[place] [address] [place] [address] Mark Lux MD [address] [place] [address] HYPERTENSION NOS (Primary Dx) Social History Tobacco Use Types Packs/Day Years Used Date Smoking Tobacco: Never Assessed Sex and Gender Information Value Date Recorded Sex Assigned at Not on file 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
--- OUTSIDE RECORDS SUMMARY | 2024-12-09 12:55 | XMS_ITS | Encounter Summary ---
Author Organization [facility] Address [address] [place] [address] Care Team Providers Care Printed Circuit Board Panels Developer Name Role Phone Srinivasa Anderson MD Primary Care Provider [phone] Encounter Details Date Type Department Care Team (Latest Contact Info) Description 03/09/2005 Outpatient Historical [facility] [place] [place] [address] Srinivasa Anderson MD [address] [place] [address] TESTICULAR HYPOFUNC NEC (Primary Dx) Social History Tobacco Use Types Packs/Day Years Used Date Smoking Tobacco: Never Assessed Sex and Gender Information Value Date Recorded Sex Assigned at Not on file 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
--- OUTSIDE RECORDS SUMMARY | 2024-12-09 12:55 | XMS_ITS | Encounter Summary ---
Author Organization [facility] Address [address] [place] [address] Care Team Providers Care Java Analyst Name Role Phone Srinivasa Anderson MD Primary Care Provider [phone] Encounter Details Date Type Department Care Team (Latest Contact Info) Description 10/24/2001 Outpatient Historical [facility] [place] [place] [address] Mark Lux MD [address] [place] [address] HYPERTENSION NOS (Primary Dx); Pure hypercholesterolem; OSTEOARTHROS NOS-UNSPEC Social History Tobacco Use Types Packs/Day Years Used Date Smoking Tobacco: Never Assessed Sex and Gender Information Value Date Recorded Sex Assigned at Not on file 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
--- OUTSIDE RECORDS SUMMARY | 2024-12-09 12:55 | XMS_ITS | Encounter Summary ---
Author Organization [facility] Address [address] [place] [address] Care Team Providers Care Cat Driver Name Role Phone Srinivasa Anderson MD Primary Care Provider Encounter Details Date Type Department Care Team (Latest Contact Info) Description 05/30/1998 Outpatient Historical [facility] Dermatology- [facility] [place] [address] [place] [address] Zoltan Mahoney MD NO ADDRESS ON FILE Other seborrheic keratosis (Primary Dx) Social History Tobacco Use Types Packs/Day Years Used Date Smoking Tobacco: Never Assessed Sex and Gender Information Value Date Recorded Sex Assigned at Not on file 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
--- OUTSIDE RECORDS SUMMARY | 2024-12-09 12:55 | XMS_ITS | Encounter Summary ---
Author Organization [facility] Address [address] [place] [facility] [place] [address] Care Team Providers Care Authors Motivational Name Role Phone Srinivasa Anderson MD Primary Care Provider [phone] Encounter Details Date Type Department Care Team (Late st Contact Info) Description 02/17/2001 Outpatient [facility] [place] [address] Yfn Hahn MD [address] [place] [address] ACUTE BRONCHITIS (Primary Dx); THROMBOPHLEBITIS LEG NOS Social History Tobacco Use Types Packs/Day Years Used Date Smoking Tobacco: Never Assessed Sex and Gender Information Value Date Recorded Sex Assigned at Not on file Legal Sex Male 3: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
--- OUTSIDE RECORDS SUMMARY | 2024-12-09 12:55 | XMS_ITS | Encounter Summary ---
Author Organization [facility] Address [address] [place] [place] [address] Care Team Providers Care Ship Cleaner Name Role Phone Srinivasa Anderson MD Primary Care Provider Encounter Details Date Type Department Care Team (Late st Contact Info) Description 12/30/2000 Outpatient Historical [facility] Yfn Hahn MD [address] [place], [place] [id number] Other pulmonary embolism and infarction (CMS/HCC) (Primary Dx) Social History Tobacco Use Types Packs/Day Years Used Date Smoking Tobacco: Never Assessed Sex and Gender Information Value Date Recorded Sex Assigned at Not on file 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
--- OUTSIDE RECORDS SUMMARY | 2024-12-09 12:55 | XMS_ITS | Encounter Summary ---
Author Organization [facility] Address [address] [facility] [place] [address] Care Team Providers Care Plaster Mixer Name Role Phone Srinivasa Anderson MD Primary Care Provider [phone] Encounter Details Date Type Department Care Team (Latest Contact Info) Description 08/04/2002 Outpatient Historical [facility] Imaging Services-[place] [address] [place] [address] Mark Lux MD [address] [place] [address] JOINT PAIN-PELVIS (Primary Dx) Social History Tobacco Use Types Packs/Day Years Used Date Smoking Tobacco: Never Assessed Sex and Gender Information Value Date Recorded Sex Assigned at Not on file 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
--- OUTSIDE RECORDS SUMMARY | 2024-12-09 12:55 | XMS_ITS | Encounter Summary ---
Author Organization [facility] Address [address] [place] [address] Care Team Providers Care Director Of Global Sales Name Role Phone Srinivasa Anderson MD Primary Care Provider [phone] Encounter Details Date Type Department Care Team (Latest Contact Info) Description 02/18/2001 Outpatient Historical [facility] [place] [address] [place] [address] Zoltan Mahoney MD NO ADDRESS ON FILE PERS HX SKIN MALIGNANCY NEC (Primary Dx); SEBORRHEIC KERATOSIS NOS; ACTINIC KERATOSIS Social History Tobacco Use Types Packs/Day Years Used Date Smoking Tobacco: Never Assessed Sex and Gender Information Value Date Recorded Sex Assigned at Not on file 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
--- OUTSIDE RECORDS SUMMARY | 2024-12-09 12:55 | XMS_ITS | Encounter Summary ---
Author Organization [facility] Address [address] [facility] [place] [address] Care Team Providers Care Traffic Operations Engineer Name Role Phone Srinivasa Anderson MD Primary Care Provider [phone] Encounter Details Date Type Department Care Team (Latest Contact Info) Description 12/02/2001 Outpatient Historical [facility] Int [facility] [place] [place] [address] Mark Lux MD [address] [place] [address] Pure hypercholesterolem (Primary Dx); HYPERTENSION NOS Social History Tobacco Use Types Packs/Day Years Used Date Smoking Tobacco: Never Assessed Sex and Gender Information Value Date Recorded Sex Assigned at Not on file Legal Sex Male 3:08 AM HEALTH 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
--- OUTSIDE RECORDS SUMMARY | 2024-12-09 12:55 | XMS_ITS | Encounter Summary ---
Author Organization [facility] Address [address] [facility] [place] [address] Care Team Providers Care Compliance Auditor Name Role Phone Srinivasa Anderson MD Primary Care Provider [phone] Encounter Details Date Type Department Care Team (Latest Contact Info) Description 02/14/2005 Outpatient Historical [facility] [place] [place] [address] Srinivasa Anderson MD [address] [place] [address] TESTICULAR HYPOFUNC NEC (Primary Dx); Vaccine for influenza Social History Tobacco Use Types Packs/Day Years Used Date Smoking Tobacco: Never Assessed Sex and Gender Information Value Date Recorded Sex Assigned at Not on file Legal Sex Male 3:08 AM 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
--- OUTSIDE RECORDS SUMMARY | 2024-12-09 12:55 | XMS_ITS | Encounter Summary ---
Author Organization [facility] Address [address] [facility] [facility] [place] [address] Care Team Providers Care Health Care Legal Assistant Name Role Phone Srinivasa Anderson MD Primary Care Provider [phone] Encounter Details Date Type Department Care Team (Late st Contact Info) Description 02/17/2001 Outpatient Historical [facility] [address] [place] [address] Yfn Hahn MD [address] [place] [address] COUGH (Primary Dx); RESPIRATORY ABNORM NEC Social History Tobacco Use Types Packs/Day Years Used Date Smoking Tobacco: Never Assessed Sex and Gender Information Value Date Recorded Sex Assigned at Not on file 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
--- OUTSIDE RECORDS SUMMARY | 2024-12-09 12:55 | XMS_ITS | Encounter Summary ---
Author Organization [facility] Address [address] [facility] [place] [address] Care Team Providers Care Costumer Assistant Name Role Phone Srinivasa Anderson MD Primary Care Provider [phone] Encounter Details Date Type Department Care Team (Latest Contact Info) Description 09/11/2002 Outpatient Historical [facility] D[facility]atology- [facility] [place] [address] [place] [phone] Zoltan Mahoney MD NO ADDRESS ON FILE ACTINIC KERATOSIS (Primary Dx); Malig amado scalp/skin neck; SEBORRHEIC KERATOSIS NOS Social History Tobacco Use Types Packs/Day Years Used Date Smoking Tobacco: Never Assessed Sex and Gender Information Value Date Recorded Sex Assigned at Not on file 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
--- OUTSIDE RECORDS SUMMARY | 2024-12-09 12:55 | XMS_ITS | Encounter Summary ---
Author Organization [facility] Address [address] [facility] [place] [address] Care Team Providers Care Operation Specialist Name Role Phone Srinivasa Anderson MD Primary Care Provider [phone] Encounter Details Date Type Department Care Team (Latest Contact Info) Description 08/30/2003 Outpatient Historical [facility] Int [facility] [place] [place] [address] Mark Lux MD [address] [place] [address] ABDOMINAL PAIN UNSPEC SITE (Primary Dx) Social History Tobacco Use Types Packs/Day Years Used Date Smoking Tobacco: Never Assessed Sex and Gender Information Value Date Recorded Sex Assigned at Not on file 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
--- OUTSIDE RECORDS SUMMARY | 2024-12-09 12:55 | XMS_ITS | Encounter Summary ---
Author Organization [facility] Address [address] [place] [address] Care Team Providers Care Tire Finisher Name Role Phone Srinivasa Anderson MD Primary Care Provider [phone] Encounter Details Date Type Department Care Team (Latest Contact Info) Description 09/01/2002 Outpatient Historical [facility] [address] 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
--- OUTSIDE RECORDS SUMMARY | 2024-12-09 12:55 | XMS_ITS | Encounter Summary ---
Author Organization [facility] Address [address] [place] [facility] [place] [address] Care Team Providers Care Environmental Health Manager Name Role Phone Srinivasa Anderson MD Primary Care Provider [phone] Encounter Details Date Type Department Care Team (Late st Contact Info) Description 10/21/2000 Outpatient Historical [facility] Yfn Hahn MD [address] [place], [place] [id number] Unspecified essential hypertension (Primary Dx); Other vitamin B12 deficiency anemia; Routine medical exam; Special screening for malignant neoplasm of prostate; Femoral vein phlebitis (CMS/HCC) Social History Tobacco Use Types Packs/Day Years Used Date Smoking Tobacco: Never Assessed Sex and Gender Information Value Date Recorded Sex Assigned at Not on file 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
--- OUTSIDE RECORDS SUMMARY | 2024-12-09 12:55 | XMS_ITS | Encounter Summary ---
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 (Primary Dx); Inflamed seborr keratos; Other seborrheic keratosis Social History Tobacco Use Types Packs/Day Years Used Date Smoking Tobacco: Never Assessed Sex and Gender Information Value Date Recorded Sex Assigned at Not on file 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 Sex Male 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 Gender Identity Not on file Sexual Orientation Not on file documented as of this encounter Plan of Treatment Not on file documented as of this encounter Visit Diagnoses Diagnosis 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- Primary Inflamed seborr keratos Inflamed seborrheic keratosis Other seborrheic keratosis documented in this encounter Care Teams Information Systems Security Specialist Relationship Specialty Start Date End Date Srinivasa Anderson MD [address] [place] [phone] PCP - General 07/18/04 documented as of this encounter
--- OUTSIDE RECORDS SUMMARY | 2024-12-09 12:55 | XMS_ITS | Encounter Summary ---
Author Organization [facility] Address [address] [place]: Epic Prelude [place]T [place] [address] Care Team Providers Care Truck Manager Name Role Phone Srinivasa Anderson MD Primary Care Provider [phone] Encounter Details Date Type Department Care Team (Late st Contact Info) Description 06/29/1999 Outpatient Historical Zoltan Mahoney MD NO ADDRESS ON FILE Social History Tobacco Use Types Packs/Day Years Used Date Smoking Tobacco: Never Assessed Sex and Gender Information Value Date Recorded Sex Assigned at Not on file Legal Sex Male 3:08 AM TEST DATA DEVELOPER Gender Identity Not on file Sexual Orientation Not on file documented as of this encounter Plan of Treatment Not on file documented as of this encounter Visit Diagnoses Not on filedocumented in this encounter Care Teams Truck Manager Relationship Specialty Start Date End Date Srinivasa Anderson MD [address] [facility] [address] [place] [address] PCP - General 07/18/04 documented as of this encounter
[2024-12-09 13:38] LABS: Hematocrit 33.7 % (37-53); Hemoglobin 10.70 g/dL (11.27-16.99); Mean Corpuscular HGB Conc 31.8 g/dL (30-55); Mean Corpuscular Hemoglobin 27.9 pg (27-33); Mean Corpuscular Volume 88.0 fl (82-101); Nucleated Red Blood Cells % 0 %; Platelet Count 183 10^3/cmm (157-399); Red Blood Count 3.83 10^6/uL (3.85-5.65); White Blood Count 7.56 10^3/uL (3.29-11.43)
[2024-12-09 13:54] LABS: Alanine Aminotransferase 22 U/L (0-41); Albumin Level 3.7 g/dL (3.5-5.2); Alkaline Phosphatase 97 U/L (40-130); Anion Gap 13.8 (5-19); Aspartate Amino Transferase 21 U/L (0-40); Blood Urea Nitrogen 33 mg/dL (8-23); Calcium 8.9 mg/dL (8.5-10.5); Carbon Dioxide 23 mmol/L (22-29); Chloride 106 mmol/L (98-107); Creatinine Clr Calc Pharmacy 47.4687; Globulin 5.0 g/dL (1.3-4.6); Glucose 97 mg/dL (65-115); Osmolality Calculated 295 mOsm/kg (285-295); Potassium 3.8 mmol/L (3.5-5.1); Sodium 139 mmol/L (136-145); Total Protein 8.7 g/dL (6.6-8.7)
--- NOTE | 2024-12-09 15:47 | W.ED.GENADLT ---
HPI - General Adult General: Chief complaint: General Medical Stated complaint: R leg hurting swollen sore up to the knee Time Seen by Provider: 12/09/24 15:19 History of Present Illness: 89-year-old male presents to the emergency room he is very concerned that he may have a cellulitis. He has been seen regularly by Dr. Rae. He seen Dr. Rae just 5 days ago. He has not had a fever at home he states the area on his right lower leg anteriorly has been inflamed and warm. No drainage from the wound. Associated symptoms: Deny chest pain, dyspnea or rash Related Data Home Medications ?Medication ?Instructions ?Recorded ?Confirmed acetaminophen 325 mg tablet 325 mg PO QID PRN Pain 01/24/24 12/14/24 (Tylenol) fluticasone propionate 50 1 spray intranasal BID PRN 01/24/24 12/14/24 mcg/actuation nasal allergies spray,suspension (Flonase Allergy Relief) losartan 100 mg tablet 50 mg PO DAILY 01/24/24 12/14/24 prednisone 5 mg tablet 5 mg PO DAILY 01/24/24 12/14/24 tamsulosin 0.4 mg capsule 0.4 mg PO DAILY 01/24/24 12/14/24 trazodone 100 mg tablet 100 mg PO BEDTIME PRN sleep 01/24/24 12/14/24 amlodipine 10 mg tablet 10 mg PO DAILY 03/17/24 12/14/24 guaifenesin 600 mg tablet, 600 mg PO BID PRN Congestion 09/02/24 12/14/24 extended release 12 hr (Mucinex) aspirin 81 mg tablet,delayed 81 mg PO DAILY 12/09/24 12/14/24 release Previous Rx's ?Medication ?Instructions ?Recorded blood sugar diagnostic (Contour #[id number] ea 05/18/22 Next Test Strips) pregabalin 75 mg capsule 75 mg PO BID #60 caps 12/09/24 amoxicillin 875 mg-potassium 1 tab PO BID #14 tabs 12/14/24 clavulanate 125 mg tablet Allergies Allergy/AdvReac Type Severity Reaction Status Date / Time No Known Allergies Allergy Verified 12/14/24 14:22 Review of Systems Const: Denies: fever(s) or chills Card: Reports: edema; Denies: chest pain Resp: Denies: dyspnea GI: Denies: abdominal pain : Denies: dysuria, urinary frequency or urinary urgency Musc: Denies: neck pain or back pain Skin/Breast: Denies: rash PFSH ED PFSH: Medical History History of transcatheter aortic valve replacement (TAVR) History of colon polyps Impairment of balance Sleeplessness Left inguinal hernia Urinary hesitancy Nocturia more than twice per night Change in stool habits Abdominal discomfort Hx of basal cell carcinoma Allergic rhinitis Chronic neck pain Type 2 diabetes mellitus Diet managed Chronic anticoagulation INR goal 2-3 Hx pulmonary embolism Hypertension Surgical History History of inguinal hernia repair History of mitral valve repair History of colonoscopy History of esophagogastroduodenoscopy Hx of cataract surgery Family History Other CAD (coronary artery disease) Cancer Diabetes Heart attack Hyperlipidemia Hypertension Rheumatoid arthritis Stroke Denies family history of Lupus Chronic kidney disease (CKD) Social History Smoking and tobacco/nicotine status: former use of tobacco/nicotine Quit status (tobacco/nicotine): has quit using Former quit date comment: over 40 years ago Alcohol intake: current Alcohol intake frequency: few times a week Substance/Drug Use: never Physical Exam Const: GENERAL APPEARANCE: cooperative ORIENTATION/CONSCIOUSNESS: Yes awake, Yes oriented to person, Yes oriented to place and Yes oriented to time HENMT: COMMON NORMALS: normocephalic, atraumatic and hearing grossly normal bilaterally HEAD & SCALP: normocephalic and atraumatic Resp: COMMON NORMALS: normal respiratory effort, No retractions, No use of accessory muscles and clear to auscultation bilaterally AUSCULTATION: clear to auscultation bilaterally Cardio: COMMON NORMALS: regular rate, regular rhythm and No murmurs present (Cardio) RATE: regular rate RHYTHM: regular rhythm GI: COMMON NORMALS: Soft to palpation and No hepatosplenomegaly present AUSCULTATION: Yes normoactive bowel sounds PALPATION: Yes Soft to palpation, No Tenderness to palpation present (GI), No Guarding due to palpation present (GI) and Yes No hepatosplenomegaly present Extremity: COMMON NORMALS: normal to inspection, capillary refill normal, no clubbing, cyanosis or edema, no calf tenderness and no pedal edema Neuro: SENSORIUM/ORIENTATION: Yes oriented to person, Yes oriented to place and Yes oriented to time Skin: OTHER: Chronic skin changes anteriorly there is some areas that are mildly excoriated they are very small in nature there is no drainage no tunneling no induration. It is not reddened or inflamed. Course Vital Signs: Vital signs: Vital Signs Temperature 97.7 F 12/09/24 12:48 Pulse Rate 82 12/09/24 18:13 Respiratory Rate 16 12/09/24 12:48 Blood Pressure 167/80 12/09/24 18:13 Pulse Oximetry 96 12/09/24 18:13 Oxygen Delivery Me thod Room Air 12/09/24 12:48 MDM - General Adult Medical Decision Making Venous duplex negative. Second arterial segmental Dopplers show good blood flow to the area. No leukocytosis mild elevation of his sed rate. He does not appear clinically to have a cellulitis. Would not recommend antibiotics at this time. I talked to Dr. Hamlin he will see the patient tomorrow in the office. Medical Records I reviewed the patient's medical records. Lab Data I reviewed the patient's lab results. 12/09/24 13:30 12/09/24 13:30 Radiology Impressions Venous Duplex 12/09/24 15:49 IMPRESSION: No evidence of deep vein thrombosis. Duplex Scan Lower Extremity Artery 12/09/24 15:57 IMPRESSION: No sign of hemodynamically significant arterial stenosis in the right lower extremity. Laboratory Results WBC 7.56 10^3/uL (3.29-11.43) 12/09/24 13:30 RBC 3.83 10^6/uL (3.85-5.65) L 12/09/24 13:30 Hgb 10.70 g/dL (11.27-16.99) L 12/09/24 13:30 Hct 33.7 % (37-53) L 12/09/24 13:30 MCV 88.0 fl (82-101) 12/09/24 13:30 MCH 27.9 pg (27-33) 12/09/24 13:30 MCHC 31.8 g/dL (30-55) 12/09/24 13:30 RDW 16.6 % (12.1-15.1) H 12/09/24 13:30 Plt Count 183 10^3/cmm (157-399) 12/09/24 13:30 MPV 10.0 fL (7.4-10.4) 12/09/24 13:30 Neut % (Auto) 71.0 % 12/09/24 13:30 Lymph % (Auto) 18.7 % 12/09/24 13:30 Manatee % (Auto) 9.1 % 12/09/24 13:30 Eos % (Auto) 0.4 % 12/09/24 13:30 Baso % (Auto) 0.1 % 12/09/24 13:30 Neut # (Auto) 5.37 10^3/uL (1.8-7.7) 12/09/24 13:30 Lymph # (Auto) 1.4 10^3/uL (0.8-4.8) 12/09/24 13:30 Manatee # (Auto) 0.7 10^3/uL (0.2-0.9) 12/09/24 13:30 Eos # (Auto) 0.0 10^3/uL (0.0-0.8) 12/09/24 13:30 Baso # (Auto) 0.0 10^3/uL (0.0-0.1) 12/09/24 13:30 Nucleated RBC % (auto) 0 % 12/09/24 13:30 Nucleated RBCs # 0.0 /100WBC 12/09/24 13:30 ESR 40 mm/hr (0-10) H 12/09/24 13:30 Sodium 139 mmol/L (136-145) 12/09/24 13:30 Potassium 3.8 mmol/L (3.5-5.1) 12/09/24 13:30 Chloride 106 mmol/L (98-107) 12/09/24 13:30 Carbon Dioxide 23 mmol/L (22-29) 12/09/24 13:30 Anion Gap 13.8 (5-19) 12/09/24 13:30 BUN 33 mg/dL (8-23) H 12/09/24 13:30 Creatinine 1.3 mg/dL (0.7-1.2) H 12/09/24 13:30 GFR Calculation Not Reportable 12/09/24 13:30 Glucose 97 mg/dL (65-115) 12/09/24 13:30 Calculated Osmolality 295 mOsm/kg (285-295) 12/09/24 13:30 Calcium 8.9 mg/dL (8.5-10.5) 12/09/24 13:30 Total Bilirubin 0.5 mg/dL (0.15-1.2) 12/09/24 13:30 AST 21 U/L (0-40) 12/09/24 13:30 ALT 22 U/L (0-41) 12/09/24 13:30 Alkaline Phosphatase 97 U/L (40-130) 12/09/24 13:30 C-Reactive Protein 24.8 mg/L (0.0-4.9) H 12/09/24 13:30 Total Protein 8.7 g/dL (6.6-8.7) 12/09/24 13:30 Albumin 3.7 g/dL (3.5-5.2) 12/09/24 13:30 Globulin 5.0 g/dL (1.3-4.6) H 12/09/24 13:30 All radiology interpretation(s) finalized by discharge Discharge Plan Discharge Patient Disposition: Home Clinical Impression: Neuritis of foot Condition: Stable Prescriptions: New pregabalin 75 mg capsule 75 mg PO BID Qty: 60 0RF No Action amoxicillin-pot clavulanate 875-125 mg tablet 1 tab PO BID Qty: 14 0RF (DME) Contour Next Test Strips Strip See Rx Instructions .Route Qty: 50 11RF Rx Instructions: use to test blood sugar once daily prednisone 5 mg tablet 5 mg PO DAILY tamsulosin 0.4 mg capsule 0.4 mg PO DAILY trazodone 100 mg tablet 100 mg PO BEDTIME PRN (Reason: sleep ) losartan 100 mg tablet 50 mg PO DAILY fluticasone propionate [Flonase Allergy Relief] 50 mcg/actuation spray,suspension 1 spray intranasal BID PRN (Reason: allergies) Rx Instructions: administer into each nostril acetaminophen [Tylenol] 325 mg Tablet 325 mg PO QID PRN (Reason: Pain) aspirin [Aspir-81] 81 mg Tablet,Delayed Release (Dr/Ec) 81 mg PO DAILY amlodipine 10 mg tablet 10 mg PO DAILY guaifenesin [Mucinex] 600 mg Tablet Extended Release 12hr 600 mg PO BID PRN (Reason: Congestion) Discharge Orders: Discharge ED (Routine); Ordered 12/09/24 Ordered By: Basilio Quintero Referrals: Srinivasa Anderson MD [Primary Care Provider, Family Practice] Patient Instructions: Opioid Safety, Pain Management, Patient Portal & Jenna Instructions Activity Restrictions/Additional Instructions: [facility]. It is very important that you follow up as instructed or that you return to the Emergency Department should you have concerns or if your condition changes or worsens in any way. You are seen in the emergency room with concerns of cellulitis in her lower leg. Your white count is normal. Ultrasound of your leg did not show any signs of blood clot and shows good arterial blood flow into your right leg. At this point I believe most of your discomfort is from peripheral neuropathy. Will start you on pregabalin 75 mg 1 pill twice a day recommend that you follow-up with podiatry. I talked to Dr. Rae they will see you tomorrow morning at his office at 8:30 AM. Print Language: Stateless Coding Level of Care Code ED Coffee Farmer for Steffany Redmond
--- NOTE | 2024-12-09 15:49 | USR_ITS ---
PROCEDURE INFORMATION: Exam: US Duplex Right Lower Extremity Veins, Limited Exam date and time: 12/09/2024 4:17 PM Age: 89 years old Clinical indication: Pain; Leg, lower; Right; Additional info: Pain swelling TECHNIQUE: Imaging protocol: Real-time duplex ultrasound of the right extremity with 2-D garcia scale, color Doppler flow and spectral waveform analysis including responses to compression and other maneuvers (when performed) with image documentation. Limited exam was focused on the right lower extremity veins. COMPARISON: CR XR ankle RT min 3V* [id number] 10/05/2024 10:38 AM FINDINGS: Right deep veins: Unremarkable. The common femoral, femoral, proximal profunda femoral and popliteal veins are patent without thrombus. Normal Doppler waveforms. Normal compressibility and/or augmentation response. Superficial veins: Greater saphenous vein at the saphenofemoral junction is patent without thrombus. Soft tissues: Subcutaneous edema in the lower leg. US/[place] [id number] IMPRESSION: No evidence of deep vein thrombosis.
--- NOTE | 2024-12-09 15:57 | USR_ITS ---
PROCEDURE INFORMATION: Exam: US Duplex Right Lower Extremity Arteries Or Arterial Bypass Grafts Exam date and time: 12/09/2024 4:24 PM Age: 89 years old Clinical indication: Pain; Leg, lower; Right TECHNIQUE: Imaging protocol: Right Real-time duplex scan of the arteries or arterial bypass grafts of the right lower extremity with 2-D garcia scale, color Doppler flow and spectral waveform analysis. Images documented and saved. COMPARISON: [place] [id number] 12/09/2024 4:17 PM FINDINGS: Right external iliac artery: No visible luminal narrowing. Normal waveform. Peak velocity 70 cm/s. Right common femoral artery: No visible luminal narrowing. Normal waveform. Peak velocity 94 cm/s. Right superficial femoral artery: No visible luminal narrowing. Normal waveform. Peak velocity 67 cm/second. Right popliteal artery: No visible luminal narrowing. Normal waveform. Peak velocity 34 cm/s. Right calf/foot arteries: Right posterior tibial and dorsalis pedis arteries demonstrate normal waveforms. Soft tissues: Subcutaneous edema in the lower leg. Other findings: Right BRENDAN is 0.96 US/[place] [id number] IMPRESSION: No sign of hemodynamically significant arterial stenosis in the right lower extremity.
[2024-12-09 16:02] VITALS: BP 171/80; PULSE 59; O2SAT 95
[2024-12-09 18:13] VITALS: BP 167/80; PULSE 82; O2SAT 96
== END 2024-12-09 18:15 | disposition home or self-care (01) ==
PROVIDERS: Emergency Medicine; Emergency Provider Family Medicine; PCP Family Medicine
DX: G58.8 Other specified mononeuropathies (principal); Z79.82 Long term (current) use of aspirin; Z87.891 Personal history of nicotine dependence; E11.9 Type 2 diabetes mellitus without complications; I10 Essential (primary) hypertension; Z85.828 Personal history of other malignant neoplasm of skin
CPT/HCPCS: 36415; 80053; 85025; 85651; 86140; 93926; 93971; 99284

== ENCOUNTER → 2024-12-10 08:28 | Outpatient (BNVA) | payer MEDICARE, SELFPAY | PROVIDERS: PCP Family Medicine; Visit Provider Podiatrist Foot & Ankle Surgery | DX: I73.9 Peripheral vascular disease, unspecified (principal); G62.9 Polyneuropathy, unspecified; L03.111 Cellulitis of right axilla | CPT/HCPCS: 99214 ==

== ENCOUNTER → 2024-12-14 15:23 | Outpatient (BNVA) | payer MEDICARE, SELFPAY | PROVIDERS: PCP Family Medicine; Visit Provider Podiatrist Foot & Ankle Surgery | DX: G62.9 Polyneuropathy, unspecified (principal); I73.9 Peripheral vascular disease, unspecified | CPT/HCPCS: 99214 ==

== ENCOUNTER 2024-12-17 10:59 | Emergency (ER) | payer MEDICARE, SELFPAY ==
--- OUTSIDE RECORDS SUMMARY | 2024-12-17 11:05 | XMS_ITS | Encounter Summary ---
Author Organization [facility] Address [address] [place] [address] Care Team Providers Care Wrist Hemmer Name Role Phone Srinivasa Anderson MD Primary Care Provider [phone] Encounter Details Date Type Department Care Team (Latest Contact Info) Description 03/26/2006 Outpatient [facility] [place] [place] [address] Srinivasa Anderson MD [address] [place] [address] Other Testicular Hypofunction (Primary Dx); Vaccine for influenza; Lumbago Social History Tobacco Use Types Packs/Day Years Used Date Smoking Tobacco: Never Assessed Sex and Gender Information Value Date Recorded Sex Assigned at Not on file 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
--- OUTSIDE RECORDS SUMMARY | 2024-12-17 11:05 | XMS_ITS | Encounter Summary ---
Author Organization [facility] Address [address] [place] [facility] [place] [address] Care Team Providers Care Inserter Promotional Item Name Role Phone Srinivasa Anderson MD Primary Care Provider Encounter Details Date Type Department Care Team (Latest Contact Info) Description 01/16/2007 Outpatient Historical [facility] [place] [place] [address] Srinivasa Anderson MD [address] [place] [address] Other Abnormal Blood Chemistry (Primary Dx); Iatrogenic Pulmonary Embolism and Infarction (CMS/HCC); Other and Unspecified Hyperlipidemia; Other Testicular Hypofunction Social History Tobacco Use Types Packs/Day Years Used Date Smoking Tobacco: Never Assessed Sex and Gender Information Value Date Recorded Sex Assigned at Not on file 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 Gender Identity Not on file Sexual Orientation Not on file documented as of this encounter Plan of Treatment Not on file documented as of this encounter Visit Diagnoses Diagnosis Other abnormal blood chemistry- Primary Iatrogenic pulmonary embolism and infarction (CMS/HCC) Iatrogenic pulmonary embolism and infarction Other and unspecified hyperlipidemia Other testicular hypofunction documented in this encounter Care Teams Inserter Promotional Item Relationship Specialty Start Date End Date Srinivasa Anderson MD [address] [place] [address] PCP - General 07/18/04 documented as of this encounter
--- OUTSIDE RECORDS SUMMARY | 2024-12-17 11:05 | XMS_ITS | Encounter Summary ---
Author Organization [facility] Address [address] [place] [address] Care Team Providers Care Tyre Finisher And Examiner Name Role Phone Srinivasa Anderson MD Primary Care Provider [phone] Encounter Details Date Type Department Care Team (Latest Contact Info) Description 04/25/2006 Outpatient Historical [facility] [place] [place] [address] Srinivasa Anderson MD [address] [place] [address] Acute Sinusitis, Unspecified (Primary Dx) Social History Tobacco Use Types Packs/Day Years Used Date Smoking Tobacco: Never Assessed Sex and Gender Information Value Date Recorded Sex Assigned at Not on file 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
--- OUTSIDE RECORDS SUMMARY | 2024-12-17 11:05 | XMS_ITS | Encounter Summary ---
Author Organization [facility] Address [address] [facility] [address] [place] [address] Care Team Providers Care Binder And Box Builder Name Role Phone Srinivasa Anderson MD Primary Care Provider [phone] Encounter Details Date Type Department Care Team (Latest Contact Info) Description 08/15/2006 Outpatient Historical [facility] [place] [place] [address] Srinivasa Anderson MD [address] [place] [address] Other Testicular Hypofunction (Primary Dx) Social History Tobacco Use Types Packs/Day Years Used Date Smoking Tobacco: Never Assessed Sex and Gender Information Value Date Recorded Sex Assigned at Not on file Legal Sex Male 3:08 AM QUALITY ENG Gender Identity Not on file Sexual Orientation Not on file documented as of this encounter Plan of Treatment Not on file documented as of this encounter Visit Diagnoses Diagnosis Other testicular hypofunction- Primary documented in this encounter Care Teams Binder And Box Builder Relationship Specialty Start Date End Date Srinivasa Anderson MD [address] [place] [address] PCP - General 07/18/04 documented as of this encounter
--- OUTSIDE RECORDS SUMMARY | 2024-12-17 11:05 | XMS_ITS | Encounter Summary ---
Author Organization [facility] Address [address] [facility] [address] [place] [address] Care Team Providers Care Sql Server Developer Name Role Phone Srinivasa Anderson MD Primary Care Provider [phone] Encounter Details Date Type Department Care Team (Latest Contact Info) Description 2006 Outpatient Historical [facility] [place] [address] Srinivasa Anderson MD [address] [place] [address] Other Testicular Hypofunction (Primary Dx) Social History Tobacco Use Types Packs/Day Years Used Date Smoking Tobacco: Never Assessed Sex and Gender Information Value Date Recorded Sex Assigned at Not on file 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
--- OUTSIDE RECORDS SUMMARY | 2024-12-17 11:05 | XMS_ITS | Encounter Summary ---
Author Organization [facility] Address [address] [facility] [place] [address] Care Team Providers Care Management Sme Name Role Phone Srinivasa nAderson MD Primary Care Provider Encounter Details Date Type Department Care Team (Latest Contact Info) Description 04/19/2006 Outpatient Historical [facility] [place] [place] [address] Srinivasa Anderson MD [address] [place] [address] Other Testicular Hypofunction (Primary Dx) Social History Tobacco Use Types Packs/Day Years Used Date Smoking Tobacco: Never Assessed Sex and Gender Information Value Date Recorded Sex Assigned at Not on file 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
--- OUTSIDE RECORDS SUMMARY | 2024-12-17 11:05 | XMS_ITS | Encounter Summary ---
Author Organization [facility] Address [address] [place] [address] Care Team Providers Care Docket Specialist Name Role Phone Srinivasa Anderson MD Primary Care Provider [phone] Encounter Details Date Type Department Care Team (Latest Contact Info) Description 05/15/2006 Outpatient Historical [facility] [place] [place] [address] Srinivasa Anderson MD [address] [place] [address] Other Testicular Hypofunction (Primary Dx) Social History Tobacco Use Types Packs/Day Years Used Date Smoking Tobacco: Never Assessed Sex and Gender Information Value Date Recorded Sex Assigned at Not on file 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
--- OUTSIDE RECORDS SUMMARY | 2024-12-17 11:05 | XMS_ITS | Encounter Summary ---
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); Depressive Disorder, not Elsewhere Classified Social History Tobacco Use Types Packs/Day Years Used Date Smoking Tobacco: Never Assessed Sex and Gender Information Value Date Recorded Sex Assigned at Not on file 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
--- OUTSIDE RECORDS SUMMARY | 2024-12-17 11:05 | XMS_ITS | Encounter Summary ---
Author Organization [facility] Address [address] [place] [address] Care Team Providers Care Grading Machine Feeder Name Role Phone Srinivasa Anderson MD Primary Care Provider [phone] Encounter Details Date Type Department Care Team (Latest Contact Info) Description 12/19/2006 Outpatient Historical [facility] [place] [place] [address] Srinivasa Anderson MD [address] [place] [address] Other Testicular Hypofunction (Primary Dx) Social History Tobacco Use Types Packs/Day Years Used Date Smoking Tobacco: Never Assessed Sex and Gender Information Value Date Recorded Sex Assigned at Not on file 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
--- OUTSIDE RECORDS SUMMARY | 2024-12-17 11:05 | XMS_ITS | Encounter Summary ---
Author Organization [facility] Address [address] [place] [address] Care Team Providers Care Supervisor Of Operations Name Role Phone Srinivasa Anderson MD Primary Care Provider [phone] Encounter Details Date Type Department Care Team (Latest Contact Info) Description 06/19/2006 Outpatient Historical [facility] [place] [place] [address] Srinivsaa Anderson MD [address] [place] [address] Other Testicular Hypofunction (Primary Dx) Social History Tobacco Use Types Packs/Day Years Used Date Smoking Tobacco: Never Assessed Sex and Gender Information Value Date Recorded Sex Assigned at Not on file 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
--- OUTSIDE RECORDS SUMMARY | 2024-12-17 11:05 | XMS_ITS | Encounter Summary ---
Author Organization [facility] Address [address] [place] [address] Care Team Providers Care Switch Technician Name Role Phone Srinivasa Anderson MD Primary Care Provider [phone] Encounter Details Date Type Department Care Team (Latest Contact Info) Description 12/21/2005 Outpatient Historical [facility] [place] [place] [address] Srinivasa Anderson MD [address] [place] [address] Other Malaise and Fatigue (Primary Dx); Other Testicular Hypofunction; Depressive Disorder, not Elsewhere Classified Social History Tobacco Use Types Packs/Day Years Used Date Smoking Tobacco: Never Assessed Sex and Gender Information Value Date Recorded Sex Assigned at Not on file 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
--- OUTSIDE RECORDS SUMMARY | 2024-12-17 11:05 | XMS_ITS | Encounter Summary ---
Author Organization [facility] Address [address] [place] [address] Care Team Providers Care Airport Planner Name Role Phone Srinivasa Anderson MD Primary Care Provider [phone] Encounter Details Date Type Department Care Team (Latest Contact Info) Description 11/21/2006 Outpatient Historical [facility] [place] [place] [address] Srinivasa Anderson MD [address] [place] [address] Other Testicular Hypofunction (Primary Dx) Social History Tobacco Use Types Packs/Day Years Used Date Smoking Tobacco: Never Assessed Sex and Gender Information Value Date Recorded Sex Assigned at Not on file Legal Sex Male 3:[address] Gender Identity Not on file Sexual Orientation Not on file documented as of this encounter Plan of Treatment Not on file documented as of this encounter Visit Diagnoses Diagnosis Other testicular hypofunction- Primary documented in this encounter Care Teams Airport Planner Relationship Specialty Start Date End Date Srinivasa Anderson MD [address] [place] [address] PCP - General 07/18/04 documented as of this encounter
--- OUTSIDE RECORDS SUMMARY | 2024-12-17 11:05 | XMS_ITS | Encounter Summary ---
Author Organization [facility] Address [address] [place] [address] Care Team Providers Care Ladle Operator Name Role Phone Srinivasa Anderson MD Primary Care Provider [phone] Encounter Details Date Type Department Care Team (Late st Contact Info) Description 06/03/[address] 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
--- OUTSIDE RECORDS SUMMARY | 2024-12-17 11:05 | XMS_ITS | Encounter Summary ---
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, Uncontrolled (Primary Dx) Social History Tobacco Use Types Packs/Day Years Used Date Smoking Tobacco: Never Assessed Sex and Gender Information Value Date Recorded Sex Assigned at Not on file Legal Sex Male 3:08 AM SEED SORTER Gender Identity Not on file Sexual Orientation Not on file documented as of this encounter Plan of Treatment Not on file documented as of this encounter Visit Diagnoses Diagnosis Type I (juvenile type) diabetes mellitus without mention of complication, uncontrolled- Primary documented in this encounter Care Teams Wheel Loader Operator Relationship Specialty Start Date End Date Srinivasa Anderson MD [address] [facility] [address] [place] [address] PCP - General 07/18/04 documented as of this encounter
--- OUTSIDE RECORDS SUMMARY | 2024-12-17 11:05 | XMS_ITS | Encounter Summary ---
Author Organization [facility] Address [address] [place] [address] Care Team Providers Care Traffic Engineering Director Name Role Phone Srinivasa Anderson MD Primary Care Provider [phone] Encounter Details Date Type Department Care Team (Latest Contact Info) Description 04/11/2006 Outpatient Historical [facility] [address] 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
--- OUTSIDE RECORDS SUMMARY | 2024-12-17 11:05 | XMS_ITS | Encounter Summary ---
Author Organization [facility] Address [address] [facility] [facility] [facility] [place] [address] Care Team Providers Care Loader Semiconductor Dies Name Role Phone Srinivasa Anderson MD Primary Care Provider [phone] Encounter Details Date Type Department Care Team (Latest Contact Info) Description 10/10/2006 Outpatient Historical [facility] [address] [place] [address] Zoltan Mahoney MD NO ADDRESS ON FILE Actinic Keratosis (Primary Dx); Other Seborrheic Keratosis; Benign John Scalp/Skin Neck Social History Tobacco Use Types Packs/Day Years Used Date Smoking Tobacco: Never Assessed Sex and Gender Information Value Date Recorded Sex Assigned at Not on file 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
--- OUTSIDE RECORDS SUMMARY | 2024-12-17 11:05 | XMS_ITS | Encounter Summary ---
Author Organization [facility] Address [address] [facility] [place] [address] Care Team Providers Care Process Controls Technician Name Role Phone Srinivasa Anderson MD Primary Care Provider [phone] Encounter Details Date Type Department Care Team (Latest Contact Info) Description 07/25/2006 Outpatient Historical [facility] [place] [place] [address] Srinivasa Anderson MD [address] [place] [address] Other Abnormal Blood Chemistry (Primary Dx); Osteoarth NOS-Unspec; 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 Social History Tobacco Use Types Packs/Day Years Used Date Smoking Tobacco: Never Assessed Sex and Gender Information Value Date Recorded Sex Assigned at Not on file 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
--- OUTSIDE RECORDS SUMMARY | 2024-12-17 11:05 | XMS_ITS | Encounter Summary ---
Author Organization [facility] Address [address] [facility] [place] [address] Care Team Providers Care Mining And Quarrying Machinery Repairer Name Role Phone Srinivasa Anderson MD Primary Care Provider [phone] Encounter Details Date Type Department Care Team [...] on filedocumented in this encounter Care Teams Mining And Quarrying Machinery Repairer Relationship Specialty Start Date End Date Srinivasa Anderson MD [address] [place] [phone] PCP - General 07/18/04 documented as of this encounter
--- OUTSIDE RECORDS SUMMARY | 2024-12-17 11:05 | XMS_ITS | Encounter Summary ---
Author Organization [facility] Address [address] [facility] [place] [address] Care Team Providers Care Manager It Training Name Role Phone Srinivasa Anderson MD Primary Care Provider [phone] Encounter Details Date Type Department Care Team (Latest Contact Info) Description 09/26/2006 Outpatient Historical [facility] [place] [place] [address] Srinivasa Anderson MD [address] [place] [address] Other Testicular Hypofunction (Primary Dx) Social History Tobacco Use Types Packs/Day Years Used Date Smoking Tobacco: Never Assessed Sex and Gender Information Value Date Recorded Sex Assigned at Not on file 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
--- OUTSIDE RECORDS SUMMARY | 2024-12-17 11:05 | XMS_ITS | Encounter Summary ---
Author Organization [facility] Address [address] [facility] [place] [address] Care Team Providers Care Pest Control Service Technician Name Role Phone Srinivasa Anderson MD Primary Care Provider Encounter Details Date Type Department Care Team (Latest Contact Info) Description 04/11/2006 Outpatient Historical [facility] Dermatology- [facility] [place] [address] [place] [address] Zoltan Mahoney MD NO ADDRESS ON FILE Malig Jhon Skin Ear (Primary Dx); Actinic Keratosis; Other Seborrheic Keratosis Social History Tobacco Use Types Packs/Day Years Used Date Smoking Tobacco: Never Assessed Sex and Gender Information Value Date Recorded Sex Assigned at Not on file Legal Sex Male 3:08 AM HEMP FIBER TAKER OFF Gender Identity Not on file Sexual Orientation Not on file documented as of this encounter Plan of Treatment Not on file documented as of this encounter Visit Diagnoses Diagnosis 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
--- OUTSIDE RECORDS SUMMARY | 2024-12-17 11:05 | XMS_ITS | Encounter Summary ---
Author Organization [facility] Address [address] [facility] [place] [address] Care Team Providers Care Dope Heater Name Role Phone Srinivasa Anderson MD Primary Care Provider [phone] Encounter Details Date Type Department Care Team (Latest Contact Info) Description 10/24/2006 Outpatient Historical [facility] [place] [place] [address] Srinivasa Anderson MD [address] [place] [address] Other Testicular Hypofunction (Primary Dx) Social History Tobacco Use Types Packs/Day Years Used Date Smoking Tobacco: Never Assessed Sex and Gender Information Value Date Recorded Sex Assigned at Not on file 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
--- OUTSIDE RECORDS SUMMARY | 2024-12-17 11:05 | XMS_ITS | Encounter Summary ---
Author Organization [facility] Address [address] [place] [address] Care Team Providers Care Lining Caser Name Role Phone Srinivasa Anderson MD Primary Care Provider [phone] Encounter Details Date Type Department Care Team (Late st Contact Info) Description 05/03/2006 Outpatient Historical [facility] [address] [place] [address] Srinivasa Anderson MD [address] [phone] Social History Tobacco Use Types Packs/Day Years Used Date Smoking Tobacco: Never Assessed Sex and Gender Information Value Date Recorded Sex Assigned at Not on file 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
--- OUTSIDE RECORDS SUMMARY | 2024-12-17 11:06 | XMS_ITS | Clinical Summary ---
Author Organization [facility] Address [address] [place] [address] Phone Care Team Providers Care General Production Laborer Name Role Phone Srinivasa Anderson MD Primary Care Provider [phone] Allergies No known active allergies Medications Syringe [...] 3 Active fluticasone propionate (FLONASE) 50 mcg/spray Vesuvius, Suspension nasal inhaler 1 SPRAY EACH NOSTRIL [...] Type Department Care Team Description 10/30/2024 Telephone [facility] [place] [place] [address] Srinivasa Anderson MD Needs Orders Written 10/27/2024 External Device Data STL ABSTRACTION Provider, Abstract 10/12/2024 Orders Only [facility] Health Information Management [place] [address] [place] [address] Provider, Abstract 09/29/2024 External Device Data STL [...] on file 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 Gender Identity Not on file Sexual [...] 12/25/2024 1:30 PM CDT [facility] [place] [place] [address] Srinivasa Anderson MD [address] [place] [address] 01/12/2025 8:15 AM CDT Procedure visit [facility] [address] [place] [address] Mariela Stone MD [address] [place] [address] 03/26/2025 11:40 AM SCIENCE EDUCATION PROFESSOR Office Visit [facility] [address] [place] [address] Dominic Haskins CRNP [address], [address] [place] [address] 07/08/2025 1:00 PM CDT Office Visit [facility] [address] [place] [address] Kodak Samuel MD [address] [facility] [address] [place] [address] Health Maintenance Due Date Last Done Comments ZOSTER VACCINE (2 of 3) 02/14/2012 12/20/2011 RSV VACCINE (60+ or ) (1 - 1-dose 75+ series) 2012 DIABETES ANNUAL FOOT EXAM 03/19/2018 03/19/2017, 09/2015 DIABETES MICROALBUMIN ANNUAL SCREEN 11/08/2020 11/09/2019, 12/19/2018, 08/20/2018, Additional history exists DIABETES ANNUAL RETINAL EXAM 07/17/2023, 05/01/2021, 09/03/2019, Additional history exists COVID-19 Vaccine (3 - 2023-2 5 season) 2023 11/08/2020, 07/15/2020 [...] history exists Medical Devices Implanted Type Area Maintenance Associate Device Identifier Shelf Expiration Date Model / Serial / Lot Dev Naomi Closure 35mm Watchman Flx [id number] - [id number] Implanted:Qty : 1 on 08/13/2022 at [facility] Cardiovascular Device N/A: Heart [employer] 10/25/2023 [id number] / [id number] / [id number] Mitraclip G4 Dlvry Sys Ntw No Chrg [id number] - [id number] Implanted:Qty : 1 on 02/18/2023 at [facility] Cardiovascular Device Right: Heart [employer] 08/22/2023 [id number] / [id number] / [id number] Closure Perclose Prostyle Sut Mediate 69393-17 - [id number] Implanted:Qty : 1 on 08/13/2022 by Jaden Vital MD at [facility] Closure Device Right: Groin [employer]- VASC DEVICE 04/21/2024 90063-30 / / [id number] Manta Vasc Closure 18fr 2114 [id number] Implanted:Qty : 1 on 10/30/2022 at [facility] Closure Device Right: Groin [employer]LE[employer] 04/05/2023 2115 / / [id number] Dev Sealangio Vip 8fr [id number] - [id number] Implanted:Qty : 1 on 10/30/2022 at [facility] Closure Device Left: Groin [employer] 11/19/2022 [id number] / / [id number] Closure Perclose Prostyle Sut Mediate 70211-77 - [id number] Implanted:Qty : 1 on 02/18/2023 at [facility] Closure Device Right: Groin [employer] VASC DEVICE 10/19/2024 96681-45 / / [id number] Closure Perclose Prostyle Sut Mediate 40185-15 - [id number] Implanted:Qty : 1 on 02/18/2023 at [facility] Closure Device Right: Groin [employer]- VASC DEVICE 10/19/2024 21805-30 / / [id number] Lens Io Tecnis 1pc 22.0 [id number] - [id number] Implanted:Qty : 1 on 08/23/2016 by Dominic ePralta MD Eye Left: Eye [employer] 10/20/2019 [id number] 20 / [id number] / Lens Io Tecjudith 1pc 22.5 [id number] - [id number] Implanted:Qty : 1 on 09/06/2016 by Dominic Peralta MD Eye Right: Eye [employer] 12/19/2019 [id number] 25 / [id number] / Mesh Plug Perfix Xlg [id number] - [id number] Implanted:Qty : 1 on 08/13/2023 by Franci Kaplan Jr., MD at [facility] Mesh Left: Abdomen BARD [employer]OL [id number] 01/18/2028 [id number] / / [id number] Pacemaker Micra Vr 23fr 105cm Transcath Pacing Sys [id number] - [id number] Implanted:Qty : 1 on 10/30/2022 by Mariela Stone MD at [facility] Pacemaker Heart [employer] 01/04/2024 [id number] S / [id number] / Vlv Aort Evolut Fx Tavr 34mm Evolutfx-34 - [id number] Implanted:Qty : 1 on 10/30/2022 at [facility] Valve N/A: Heart [employer]- HEART VALVE 06/07/2024 EVOLUTFX -34 / [id number] / Dlvry Sys Evolut Fx 34mm N-Lzthdndm-70 - S\E\240d-Evol utfx-34 Implanted:Qty : 1 on 10/30/2022 at [facility] Valve N/A: Heart [employer]- HEART VALVE 02/02/2024 D-EVOLUT FX-34 / \E\240D- EVOLUTFX -34 / [id number] Leadless Ppm Procedures Procedure Name Priority Date/Time Associated Diagnosis Comments COMPREHENSIVE METABOLIC PANEL Routine 10/05/2024 9:58 AM CDT LIPID PANEL Routine 08/03/2024 11:38 AM CDT Mixed hyperlipidemia HEMOGLOBIN A1C Routine 08/03/2024 11:38 AM CDT Type 2 diabetes mellitus without complication, without long-term current use of insulin ([facility]) COLONOSCOPY REPORT 11/30/2022 11 :16 [...] Comment: FASTING:YES FASTING: YES Test Performed at: [facility] [address] [place] [address] Arminda Velasco MD Blood 08/03/2024 11:3 8 AM CDT 08/03/2024 11:38 AM CDT us Srinivasa Anderson MD CHEMISTRY ORDERABLES Final Resul t [facility] [phone] [facility] [address] [place] [address] * (ABNORMAL) LIPID PANEL (08/03/2024 11:38 AM CDT) CHOLESTEROL 133 <200 mg/dL [facility] RR HDL 36(L) > OR = 40 mg/dL [facility] TRIGLYCERIDE 71 <150 mg/dL [facility] LDL CALCULATED 82 mg/dL (calc) [facility] RR Comment: Reference range: <100 Desirable range <100 mg/dL for primary prevention; <70 mg/dL for patients with CHD or diabetic patients with > or = 2 CHD risk factors. LDL-C is now calculated using the Celine calculation, which is a validated novel method providing better accuracy than the Friedewald equation in the estimation of LDL-C. Wilber SS et al. MAGDA. 2013;310(19): 0292-6892 (http://education.NXTM/faq/CCE276) CHOL/HDL RATIO 3.7 <5.0 (calc) [facility] RR NON-HDL CHOLESTEROL 97 <130 mg/dL (calc) [facility] RR Comment: For patients with diabetes plus 1 major ASCVD risk factor, treating to a non-HDL-C goal of <100 mg/dL (LDL-C of <70 mg/dL) is considered a therapeutic option. Test Performed at: [facility] [address] [place] [address] Александр Oviedo Blood 08/03/2024 11:3 8 AM CDT 08/03/2024 11:38 AM CDT us Srinivasa Anderson MD CHEMISTRY ORDERABLES Final Resul t [facility] [phone] [facility] [address] [place] [address] * COLONOSCOPY REPORT (11/30/2022 11:16 AM CDT) Narrative Procedure Note Herman Schmitz MD - 11/30/2022 11:16 AM CDT [facility] GI Patient Name: Franci Hernandez Procedure Date: [...] bowel preparation was evaluated using the BBPS (Quail Bowel Preparation Scale) with scores of: Right [...] Scope Out: 11:13:34 AM [address] [place], [place] Heramn Schmitz MD GI PROCEDURE ORDERABLES Final Result * DIABETES EYE EXAM (07/16/2022 10:57 AM CDT) Abstract Provider HEALTH MAINTENANCE Final Resul t * (ABNORMAL) MICROALBUMIN/CREATININE RATIO, RANDOM UR (11/09/2019 9:43 AM CDT) MICROALBUMIN, URINE 5.3 No Reference Range mg/dL 11/09/2019 9:33 PM CDT [facility] CREATININE, URINE 139.7 40.0 - 278.0 mg/dL 11/09/2019 9:33 PM CDT [facility] Comment:Reference Range vari es with fluid intake and diet. MICROALBUMIN/ CREAT RATIO, UR 37.9(H) <17.0 mg/g 11/09/2019 9:33 PM CDT [facility] Urine URINE SPECIMEN OBTAINED BY CLEAN CATCH PROCEDURE / Unknown Collection / Unknown 11/09/2019 9:43 AM CDT 11/09/2019 8:19 PM CDT Narrative [facility] - 11/09/2019 9:33 PM CDT Condition Microalbumin/Creat ratio Normal Males <17 Normal Females <25 Microalbuminuria Males 17-299 Microalbuminuria Females 25-299 Overt proteinuria >=300 Srinivasa Anderson MD URINE ORDERABLES Final Result [facility] DENZEL# [id number] [address] [place] [address] from Last 3 Months or Most Recently Relevant to Health Maintenance Insurance [address] [place] [address] [facility] [address] [place] [id number] MEDICARE PART A AND B * Guarantor: FRANCI HERNANDEZ Account Type Relation to Patient Date of Phone Billing Address Personal/Family RR [address] [place] [address] [facility] DATA Medicare Part B RX DANIEL[employer] PLANS (INTERNAL) [facility] Internal Plans RX [employer] Medicare Part D Advance Directives For more information, please contact: [phone] * Full Code (Latest Code Status on [...] 5:53 PM 01/29/2023 5:47 PM Care Teams General Production Laborer Relationship Specialty Start Date End Date Srinivasa Anderson MD [address] [address] PCP - General Family Practice 05/18/24
--- OUTSIDE RECORDS SUMMARY | 2024-12-17 11:06 | XMS_ITS | Encounter Summary ---
Author Organization [facility] Address [address] [place] [address] Care Team Providers Care Network Diagnostic Support Specialist Name Role Phone Srinivasa Anderson MD Primary Care Provider [phone] Encounter Details Date Type Department Care Team (Latest Contact Info) Description 10/10/2005 Outpatient Historical [facility] [address] 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
--- OUTSIDE RECORDS SUMMARY | 2024-12-17 11:06 | XMS_ITS | Encounter Summary ---
Author Organization [facility] Address [address] [address] Care Team Providers Care Tacker Off Name Role Phone Srinivasa Anderson MD Primary Care Provider [phone] Encounter Details Date Type Department Care Team (Latest Contact Info) Description 10/10/2005 Outpatient Historical [facility]- [facility] [place] [address] [place] [address] Zoltan Mahoney MD NO ADDRESS ON FILE Malig John Skin Ear (Primary Dx); Malig John Skin Arm Social History Tobacco Use Types Packs/Day Years Used Date Smoking Tobacco: Never Assessed Sex and Gender Information Value Date Recorded Sex Assigned at Not on file 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
--- OUTSIDE RECORDS SUMMARY | 2024-12-17 11:06 | XMS_ITS | Encounter Summary ---
Author Organization [facility] Address [address] [place] [facility] [place] [address] Care Team Providers Care Director Summer Sessions Name Role Phone Srinivasa Anderson MD Primary Care Provider [phone] Encounter Details Date Type Department Care Team (Latest Contact Info) Description 01/17/2005 Outpatient Historical [facility] Podiatry-[place] [address] [place] [address] Juma Eng, DPM [address] [place] [address] GANGLION OF JOINT (Primary Dx); BUNION; EXOSTOSIS, SITE NOS Social History Tobacco Use Types Packs/Day Years Used Date Smoking Tobacco: Never Assessed Sex and Gender Information Value Date Recorded Sex Assigned at Not on file 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
--- OUTSIDE RECORDS SUMMARY | 2024-12-17 11:06 | XMS_ITS | Encounter Summary ---
Author Organization [facility] Address [address] [place] [address] Care Team Providers Care Loading Supervisor Name Role Phone Srinivasa Anderson MD Primary Care Provider [phone] Encounter Details Date Type Department Care Team (Latest Contact Info) Description 10/26/2004 Outpatient Historical [facility] [address] 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
--- OUTSIDE RECORDS SUMMARY | 2024-12-17 11:06 | XMS_ITS | Encounter Summary ---
Author Organization [facility] Address [address] [facility] [place] [address] Care Team Providers Care Wheel Lacer And Truer Name Role Phone Srinivasa Anderson MD Primary Care Provider Encounter Details Date Type Department Care Team (Latest Contact Info) Description 03/20/2007 Outpatient Historical [facility] [place] [place] [address] Srinivasa Anderson MD [address] [place] [address] Other Testicular Hypofunction (Primary Dx) Social History Tobacco Use Types Packs/Day Years Used Date Smoking Tobacco: Never Assessed Sex and Gender Information Value Date Recorded Sex Assigned at Not on file 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
--- OUTSIDE RECORDS SUMMARY | 2024-12-17 11:06 | XMS_ITS | Encounter Summary ---
Author Organization [facility] Address [address] [place] [address] Care Team Providers Care Mechanical Test Engineer Name Role Phone Srinivasa Anderson MD Primary Care Provider [phone] Encounter Details Date Type Department Care Team (Latest Contact Info) Description 07/25/2005 Outpatient Historical [facility] Dermatology- [facility] [place] [address] [place] [address] Zoltan Mahoney MD NO ADDRESS ON FILE Malig John Skin Arm (Primary Dx); Other Seborrheic Keratosis Social History Tobacco Use Types Packs/Day Years Used Date Smoking Tobacco: Never Assessed Sex and Gender Information Value Date Recorded Sex Assigned at Not on file Legal Sex Male 3:08 AM 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
--- OUTSIDE RECORDS SUMMARY | 2024-12-17 11:06 | XMS_ITS | Encounter Summary ---
Author Organization [facility] Address [address] [facility] [place] [address] Care Team Providers Care Host Coordinator Name Role Phone Srinivasa Anderson MD Primary Care Provider [phone] Encounter Details Date Type Department Care Team (Latest Contact Info) Description 12/27/2004 Outpatient Historical [facility] [place] [place] [address] Srinivasa Anderson MD [address] [place] [address] TESTICULAR HYPOFUNC NEC (Primary Dx) Social History Tobacco Use Types Packs/Day Years Used Date Smoking Tobacco: Never Assessed Sex and Gender Information Value Date Recorded Sex Assigned at Not on file 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
--- OUTSIDE RECORDS SUMMARY | 2024-12-17 11:06 | XMS_ITS | Encounter Summary ---
Author Organization [facility] Address [address] [facility] [place] [address] Care Team Providers Care Hitcher Name Role Phone Srinivasa Anderson MD Primary Care Provider [phone] Encounter Details Date Type Department Care Team (Latest Contact Info) Description 09/04/2005 Outpatient Historical [facility] [place] [place] [address] Srinivasa Anderson MD [address] [place] [address] Unspecified Essential Hypertension (Primary Dx); Other and Unspecified Hyperlipidemia; Abdominal Pain, Unspecified Site; Depressive Disorder, not Elsewhere Classified Social History Tobacco Use Types Packs/Day Years Used Date Smoking Tobacco: Never Assessed Sex and Gender Information Value Date Recorded Sex Assigned at Not on file 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 Sex Male 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
--- OUTSIDE RECORDS SUMMARY | 2024-12-17 11:06 | XMS_ITS | Encounter Summary ---
Author Organization [facility] Address [address] [place] [address] Care Team Providers Care Multicultural Services Librarian Name Role Phone Srinivasa Anderson MD Primary Care Provider [phone] Encounter Details Date Type Department Care Team (Latest Contact Info) Description 09/27/2005 Outpatient Historical [facility] Dermatology- [facility] [place] [address] [place] [address] Zoltan Mahoney MD NO ADDRESS ON FILE Malig John Skin Arm (Primary Dx); Actinic Keratosis; Other Seborrheic Keratosis Social History Tobacco Use Types Packs/Day Years Used Date Smoking Tobacco: Never Assessed Sex and Gender Information Value Date Recorded Sex Assigned at Not on file 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
--- OUTSIDE RECORDS SUMMARY | 2024-12-17 11:06 | XMS_ITS | Encounter Summary ---
Author Organization [facility] Address [address] [place] [facility] [place] [address] Care Team Providers Care Fusion Operator Name Role Phone Srinivasa Anderson MD Primary Care Provider [phone] Encounter Details Date Type Department Care Team (Latest Contact Info) Description 07/25/2005 Outpatient Historical [facility] [place] [address] 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
--- OUTSIDE RECORDS SUMMARY | 2024-12-17 11:06 | XMS_ITS | Encounter Summary ---
Author Organization [facility] Address [address] [facility] [place] [address] Care Team Providers Care Director Funeral Name Role Phone Srinivasa Anderson MD Primary Care Provider [phone] Encounter Details Date Type Department Care Team (Latest Contact Info) Description 01/26/2005 Outpatient Historical [facility] [place] [place] [address] Srinivasa Anderson MD [address] [place] [address] ANXIETY STATE NOS (Primary Dx); IMPOTENCE, ORGANIC ORIGN; MALAISE AND FATIGUE NEC; TESTICULAR HYPOFUNC NEC Social History Tobacco Use Types Packs/Day Years Used Date Smoking Tobacco: Never Assessed Sex and Gender Information Value Date Recorded Sex Assigned at Not on file 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
--- OUTSIDE RECORDS SUMMARY | 2024-12-17 11:06 | XMS_ITS | Encounter Summary ---
Author Organization [facility] Address [address] [facility] [place] [address] Care Team Providers Care Head Rose Grower Name Role Phone Srinivasa Anderson MD Primary Care Provider [phone] Reason for Referral * Outpatient Services (Routine) - Closed Specialty Diagnoses / Procedures Referred By Contac t Referred To Contact Diagnoses Breast swelling Procedures MAMMO DIGITAL DIAG BILAT Srinivasa Anderson MD [address] [place] [address] Phone: tel: fax: Referral ID Status Reason Start Date Expiration Date Visits Re quested Visits Authorized [id number] Closed 04/08/2012 04/08/2013 1 1 R INSPECTOR Encounter Details Date Type Department Care Team (Late st Contact Info) Description 04/08/2012 Ancillary Orders [facility] [place] [place] [address] Srinivasa Anderson MD [address] [place] [address] Breast swelling Social History Tobacco Use Types Packs/Day Years Used Date Smoking Tobacco: Former Cigarettes 0.5 30 0 04/22/1962 - 04/22/1992 Smokeless Tobacco: Never Alcohol Use Standard Drinks/Week Comments No 0 (1 standard drink = 0.6 oz pur e alcohol) Sex and Gender Information Value Date Recorded Sex Assigned at Not on file Legal Sex Male 3:08 AM UPPER INSPECTOR Gender Identity Not on file Sexual Orientation Not on file Occupation Industry Job Start Date Job End Date Not on file Not on file Not on file Not on file documented as of this encounter Plan of Treatment Not on file documented as of this encounter Results * MAMMO DIGITAL DIAG BILAT (04/08/2012 11:03 AM UPPER INSPECTOR) Anatomical Region Laterality Modality Breast Bilateral Mammography 04/08/2012 10:0 1 AM UPPER INSPECTOR Impressions 04/08/2012 8:55 PM UPPER INSPECTOR IMPRESSION: Bilateral diagnostic exam and directed left breast ultrasound was performed today. The mammogram is unremarkable as well as the directed left breast ultrasound. Therefore clinical correlation is recommended regarding the reported symptoms. Patient received the result and recommendation letter. Spencer 1140 AM - uploaded from [employer] - Narrative 04/08/2012 8:55 PM UPPER INSPECTOR REASON FOR EXAM: Patient is reporting to [...] by the Computer Aided Detection System (CAD), Tooth Bank ImageChecker, Version 8.3. LEFT BREAST ULTRASOUND: Sonographic [...] by the Computer Aided Detection System (CAD), Tooth Bank ImageLaserlikecker, Version 8.3. LEFT BREAST ULTRASOUND: Sonographic evaluation [...] letter. DB/allie 1140 AM - uploaded from [employer] - us Srinivasa Anderson MD MAMMO ORDERABLES Final Result documented in this encounter Visit Diagnoses Diagnosis Breast swelling Lump or mass in breast Breast swelling Lump or mass in breast documented in this encounter Care Teams Head Rose Grower Relationship Specialty Start Date End Date Srinivasa Anderson MD [address] [address] PCP - General 07/18/04 documented as of this encounter
--- OUTSIDE RECORDS SUMMARY | 2024-12-17 11:06 | XMS_ITS | Encounter Summary ---
Author Organization [facility] Address [address] [place] [address] Care Team Providers Care Heavy Equipment Supervisor Name Role Phone Srinivasa Anderson MD Primary Care Provider [phone] Encounter Details Date Type Department Care Team (Latest Contact Info) Description 02/07/2006 Outpatient Historical [facility] [place] [place] [address] Srinivasa Anderson MD [address] [place] [address] Other Testicular Hypofunction (Primary Dx) Social History Tobacco Use Types Packs/Day Years Used Date Smoking Tobacco: Never Assessed Sex and Gender Information Value Date Recorded Sex Assigned at Not on file 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
--- OUTSIDE RECORDS SUMMARY | 2024-12-17 11:06 | XMS_ITS | Encounter Summary ---
Author Organization [facility] Address [address] [facility] [place] [address] Care Team Providers Care Machines Technician Name Role Phone Srinivasa Anderson MD Primary Care Provider [phone] Encounter Details Date Type Department Care Team (Latest Contact Info) Description 11/22/2005 Outpatient Historical [facility] [place] [place] [address] Nati Espinoza MD [address] [place] [address] Other Testicular Hypofunction (Primary Dx) Social History Tobacco Use Types Packs/Day Years Used Date Smoking Tobacco: Never Assessed Sex and Gender Information Value Date Recorded Sex Assigned at Not on file 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
--- OUTSIDE RECORDS SUMMARY | 2024-12-17 11:06 | XMS_ITS | Encounter Summary ---
Author Organization [facility] Address [address] [facility] [place] [address] Care Team Providers Care Neurological Physiotherapist Name Role Phone Srinivasa Anderson MD Primary Care Provider [phone] Encounter Details Date Type Department Care Team (Latest Contact Info) Description 08/16/2005 Outpatient Historical [facility] [place] [place] [address] Srinivasa Anderson MD [address] [place] [address] Other Testicular Hypofunction (Primary Dx) Social History Tobacco Use Types Packs/Day Years Used Date Smoking Tobacco: Never Assessed Sex and Gender Information Value Date Recorded Sex Assigned at Not on file 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
--- OUTSIDE RECORDS SUMMARY | 2024-12-17 11:06 | XMS_ITS | Encounter Summary ---
Author Organization [facility] Address [address] [place] [address] Care Team Providers Care Steel Estimator Name Role Phone Srinivasa Anderson MD Primary Care Provider [phone] Encounter Details Date Type Department Care Team (Latest Contact Info) Description 03/10/2007 Outpatient Historical [facility] [address] 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
--- OUTSIDE RECORDS SUMMARY | 2024-12-17 11:06 | XMS_ITS | Encounter Summary ---
Author Organization [facility] Address [address] [facility] [place] [address] Care Team Providers Care Cleaner Furniture Name Role Phone Srinivasa Anderson MD Primary Care Provider [phone] Encounter Details Date Type Department Care Team (Latest Contact Info) Description 10/19/2005 Outpatient Historical [facility] [place] [place] [address] Srinivasa Anderson MD [address] [place] [address] Other Testicular Hypofunction (Primary Dx) Social History Tobacco Use Types Packs/Day Years Used Date Smoking Tobacco: Never Assessed Sex and Gender Information Value Date Recorded Sex Assigned at Not on file Legal Sex Male 3: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
--- OUTSIDE RECORDS SUMMARY | 2024-12-17 11:06 | XMS_ITS ---
Author Organization [facility] Address [address] [address] Care Team Providers Care Supplier Diversity Director Name Role Phone Srinivasa Anderson MD Primary Care Provider [phone] Active Problems Problem Noted Date Diagnosed Date [...]
--- OUTSIDE RECORDS SUMMARY | 2024-12-17 11:06 | XMS_ITS | Encounter Summary ---
Author Organization [facility] Address [address] [facility] [address] Care Team Providers Care Mechanical Service Specialist Name Role Phone Srinivasa Anderson MD Primary Care Provider [phone] Encounter Details Date Type Department Care Team (Latest Contact Info) Description 01/18/2006 Outpatient Historical [facility] [place] [place] [address] Srinivasa Anderson MD [address] [place] [address] Other Testicular Hypofunction (Primary Dx) Social History Tobacco Use Types Packs/Day Years Used Date Smoking Tobacco: Never Assessed Sex and Gender Information Value Date Recorded Sex Assigned at Not on file 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
--- OUTSIDE RECORDS SUMMARY | 2024-12-17 11:06 | XMS_ITS | Encounter Summary ---
Author Organization [facility] Address [address] [place] [address] Care Team Providers Care Sleep Manager Name Role Phone Srinivasa Anderson MD Primary Care Provider [phone] Encounter Details Date Type Department Care Team (Latest Contact Info) Description 11/24/2004 Outpatient Historical [facility] [place] [place] [address] Srinivasa Anderson MD [address] [place] [address] TESTICULAR HYPOFUNC NEC (Primary Dx) Social History Tobacco Use Types Packs/Day Years Used Date Smoking Tobacco: Never Assessed Sex and Gender Information Value Date Recorded Sex Assigned at Not on file Legal Sex Male 3: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
--- OUTSIDE RECORDS SUMMARY | 2024-12-17 11:06 | XMS_ITS | Encounter Summary ---
Author Organization [facility] Address [address] [place] [address] Care Team Providers Care Teacher [employer]ery [employer] Name Role Phone Srinivasa Anderson MD Primary Care Provider [phone] Encounter Details Date Type Department Care Team (Late st Contact Info) Description 04/17/2007 Outpatient Historical [facility] [place] [place] [address] Srinivasa Anderson MD [address] [place] [address] Social History Tobacco Use Types Packs/Day Years Used Date Smoking Tobacco: Never Assessed Sex and Gender Information Value Date Recorded Sex Assigned at Not on file 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
--- OUTSIDE RECORDS SUMMARY | 2024-12-17 11:06 | XMS_ITS ---
Author Organization [facility] Address [address] [place] [address] Phone Care Team Providers Care Campus President Name Role Phone Srinivasa Anderson MD Primary Care Provider [phone] Active Problems Problem Noted Date Diagnosed Date [...]
--- OUTSIDE RECORDS SUMMARY | 2024-12-17 11:06 | XMS_ITS | Encounter Summary ---
Author Organization [facility] Address [address] [facility] [place] [address] Care Team Providers Care Accountant Bookkeeper Name Role Phone Srinivasa Anderson MD Primary Care Provider [phone] Encounter Details Date Type Department Care Team (Late st Contact Info) Description 05/15/2007 Outpatient [facility] [place] [place] [address] Srinivasa Anderson MD [address] [place] [address] Social History Tobacco Use Types Packs/Day Years Used Date Smoking Tobacco: Never Assessed Sex and Gender Information Value Date Recorded Sex Assigned at Not on file Legal Sex Male 3:08 AM CONFORMAL PAD FORMER Gender Identity Not on file Sexual Orientation Not on file documented as of this encounter Plan of Treatment Not on file documented as of this encounter Visit Diagnoses Not on filedocumented in this encounter Care Teams Accountant Bookkeeper Relationship Specialty Start Date End Date Srinivasa Anderson MD [address] [place] [address] PCP - General 07/18/04 documented as of this encounter
--- OUTSIDE RECORDS SUMMARY | 2024-12-17 11:06 | XMS_ITS | Encounter Summary ---
Author Organization [facility] Address [address] [facility] [place] [address] Care Team Providers Care Prestidigitator Name Role Phone Srinivasa Anderson MD Primary Care Provider [phone] Reason for Referral * Outpatient Services (Routine) - Closed Specialty Diagnoses / Procedures Referred By Contac t Referred To Contact Diagnoses Breast swelling Procedures MAMMO BREAST US LT Srinivasa Anderson MD [address] [place] [address] Phone: tel: fax: Referral ID Status Reason Start Date Expiration Date Visits Re quested Visits Authorized [id number] Closed 04/08/2012 04/08/2013 1 1 TEGY ASSOCIATE Encounter Details Date Type Department Care Team (Late st Contact Info) Description 04/08/2012 [facility] [place] [place] [address] Srinivasa Anderson MD [address] [place] [address] Breast swelling Social History Tobacco Use Types Packs/Day Years Used Date Smoking Tobacco: Former Cigarettes 0.5 30 0 04/22/1962 - 04/22/1992 Smokeless Tobacco: Never Alcohol Use Standard Drinks/Week Comments No 0 (1 standard drink = 0.6 oz pur e alcohol) Sex and Gender Information Value Date Recorded Sex Assigned at Not on file Legal Sex Male 3:08 AM STRATEGY ASSOCIATE Gender Identity Not on file Sexual Orientation Not on file Occupation Industry Job Start Date Job End Date Not on file Not on file Not on file Not on file documented as of this encounter Plan of Treatment Not on file documented as of this encounter Results * MAMMO BREAST US LT (04/08/2012 11:31 AM STRATEGY ASSOCIATE) Anatomical Region Laterality Modality Breast Left Ultrasound 04/08/2012 11:1 3 AM STRATEGY ASSOCIATE Impressions 04/08/2012 8:55 PM STRATEGY ASSOCIATE IMPRESSION: Bilateral diagnostic exam and directed left breast ultrasound was performed today. The mammogram is unremarkable as well as the directed left breast ultrasound. Therefore clinical correlation is recommended regarding the reported symptoms. Patient received the result and recommendation letter. Spencer 1140 AM - uploaded from [employer] 04/08/2012 8:55 PM STRATEGY ASSOCIATE REASON FOR EXAM: Patient is reporting to [...] by the Computer Aided Detection System (CAD), [employer] ImageChecker, Version 8.3. LEFT BREAST ULTRASOUND: Sonographic [...] by the Computer Aided Detection System (CAD), [employer] ImageTrendalyticscker, Version 8.3. LEFT BREAST ULTRASOUND: Sonographic evaluation [...] letter. DB/allie 1140 AM - uploaded from [employer] Srinivasa Anderson MD MAMMO ORDERABLES Final Result documented in this encounter Visit Diagnoses Diagnosis Breast swelling Lump or mass in breast Breast swelling Lump or mass in breast documented in this encounter Care Teams Prestidigitator Relationship Specialty Start Date End Date Srinivasa Anderson MD [address] [address] PCP - General 07/18/04 documented as of this encounter
--- OUTSIDE RECORDS SUMMARY | 2024-12-17 11:06 | XMS_ITS | Clinical Summary ---
Author Organization [facility] Address [address] [place] [address] Care Team Providers Care Perennial House Manager Name Role Phone Srinivasa Anderson MD Primary Care Provider [phone] Allergies No known active allergies Medications SACCHAROMYCES [...] on file Legal Sex Male 3:08 AM PANTOGRAPH WATCHER Gender Identity Not on file Sexual Orientation Not on file Occupation Industry Job Start Date Job End Date Not on file Not on file Not on file Not on file Last Filed Vital Signs Vital Sign Reading Time Taken Comments Blood Pressure 118/84 06/23/2020 11:43 AM PANTOGRAPH WATCHER Pulse 60 06/23/2020 11:43 AM PANTOGRAPH WATCHER Temperature 36.4 C (97.6 F) 02/19/2020 3:25 PM CDT Respiratory Rate 16 02/19/2020 3:25 PM CDT Oxygen Saturation 99% 06/23/2020 11:43 AM PANTOGRAPH WATCHER Inhaled Oxygen Concentration - - Weight 78.5 kg (173 lb) 06/23/2020 11:43 AM PANTOGRAPH WATCHER Height 191.8 cm (6' 3.5 ) 06/23/2020 11:43 AM CS T Body Mass Index 21.34 06/23/2020 11:43 AM PANTOGRAPH WATCHER Plan of Treatment Health Maintenance Due Date [...] history exists Medical Devices Implanted Type Area Program Control Analyst Device Identifier Shelf Expiration Date Model / Serial / Lot Lens Io Tecnis 1pc 22.0 [id number] - [id number] Implanted:Qty: 1 on 08/23/2016 by Dominic Peralta MD at [facility] Left: Eye [employer] 10/20/2019 [id number] / [id number] / Lens Io Tecnis 1pc 22.5 [id number] - [id number] Implanted:Qty: 1 on 09/06/2016 by Dominic Peralta MD at [facility] Right: Eye [employer] 12/19/2019 [id number] / [id number] / Procedures Procedure Name Priority Date/Time Associated Diagnosis Comments MICROALBUMIN/CREATI NINE RATIO, RANDOM UR Routine 11/09/2019 9:43 AM CDT Diabetic polyneuropathy associated with type 2 diabetes mellitus ([facility]/HCC) LIPID PANEL Routine 11/09/2019 9:43 AM CDT Diabetic polyneuropathy associated with type 2 diabetes mellitus ([facility]/HCC) HEMOGLOBIN A1C Routine 11/09/2019 9:43 AM CDT Diabetic polyneuropathy associated with type 2 diabetes mellitus ([facility]/HCC) HM DIABETES EYE EXAM Routine 11/17/2018 ENDOSCOPY, COLON, SCREENING Routine 08/12/2009 10:57 AM CDT Special Screening for Malignant Neoplasms, Colon from Last 3 Months or Most Recently Relevant to Health Maintenance Results * (ABNORMAL) MICROALBUMIN/CREATININE RATIO, RANDOM UR (11/09/2019 9:43 AM CDT) MICROALBUMIN, URINE 5.3 No Reference Range mg/dL 11/09/2019 9:33 PM CDT [facility] CREATININE, URINE 139.7 40.0 - 278.0 mg/dL 11/09/2019 9:33 PM CDT [facility] Comment:Reference Range vari es with fluid intake and diet. MICROALBUMIN/ CREAT RATIO, UR 37.9(H) <17.0 mg/g 11/09/2019 9:33 PM CDT [facility] Urine URINE SPECIMEN OBTAINED BY CLEAN CATCH PROCEDURE / Unknown Collection / Unknown 11/09/2019 9:43 AM CDT 11/09/2019 8:19 PM CDT [facility] - 11/09/2019 9:33 PM CDT Condition Microalbumin/Creat ratio Normal Males <17 Normal Females <25 Microalbuminuria Males 17-299 Microalbuminuria Females 25-299 Overt proteinuria >=300 us Srinivasa Anderson MD URINE ORDERABLES Final Result [facility] CLIA# [id number] [facility] [place] [address] * (ABNORMAL) HEMOGLOBIN A1C (11/09/2019 9:43 AM CDT) HEMOGLOBIN A1C 6.2(H) See Comment % 11/09/2019 9:37 PM CDT [facility] EST. AVG GLUCOSE, A1C 131 mg/dL 11/09/2019 9:37 PM CDT [facility] Blood Venipuncture / Unknown 11/09/2019 9:43 AM CDT 11/09/2019 8:23 PM CDT Narrative [facility] - 11/09/2019 9:37 PM CDT HGB A1C INTERPRETATION NORMAL: <5.7% PRE-DIABETES: 5.7 - 6.4% DIABETES: 6.5% OR GREATER Falsely low A1C measurements can occur when: 1. Anemia and/or hemolytic anemia is present. 2. Hemoglobin variants present. 3. Renal failure. 4. Transfusion of blood product in the last 120 days. We recommend ordering a fructosamine test([id number]) to more accurately assess glycemic status if any of the above conditions are present. us Srinivasa Anderson MD CHEMISTRY ORDERABLES Final Resul t [facility] CLIA# [id number] [address] [place] [address] * (ABNORMAL) LIPID PANEL (11/09/2019 9:43 AM CDT) [facility] CHOLESTEROL 189 <200 mg/dL 11/09/2019 9:10 PM CDT [facility] TRIGLYCERIDE 102 <150 mg/dL 11/09/2019 9:10 PM T [facility] HDL 47 40 - 59 mg/dL 11/09/2019 9:10 PM T [facility] LDL CALCULATED 122(H) <100 mg/dL 11/09/2019 9:10 PM T [facility] NON-HDL CHOLESTEROL 142(H) <130 mg/dL 11/09/2019 9:10 PM T [facility] Blood Venipuncture / Unknown 11/09/2019 9:43 AM CDT 11/09/2019 8:24 PM CDT [facility] - 11/09/2019 9:10 PM [...] Anderson MD CHEMISTRY ORDERABLES Final Resul t [facility]# [id number] [address] [place] [address] * DIABETES EYE EXAM (11/17/2018) us Abstract Spg Provider HEALTH MAINTENANCE Final R esult from Last 3 Months or Most Recently Relevant to Health Maintenance Insurance [address] [place] [address] MEDICARE PART A AND B [facility] [address] [place] [address] RX [employer] RX Member Subscriber Plan / Payer (Ef fective 2005-Present) Name:Moiz Hernandez Relation to Subscriber:Self Name:Moiz Hernandez Payer ID:Not on file Group ID:[id number] Type:RX Medicare Part D Address: [place] RX [facility] DATA Medicare Part B Advance Directives For more information, please contact: [phone] Documents on File Type Date Recorded Patient Rehab Tech Expl anation Advance Directive Living Will 07/23/2012 [...] 10:57 AM 08/13/2009 2:32 AM Care Teams Perennial House Manager Relationship Specialty Start Date End Date Srinivasa Anderson MD [address] [place] [address] PCP - General 07/18/04
--- OUTSIDE RECORDS SUMMARY | 2024-12-17 11:06 | XMS_ITS | Encounter Summary ---
Author Organization [facility] Address [address] [facility] [place] [address] Care Team Providers Care Substation Design Draftsperson Name Role Phone Srinivasa Anderson MD Primary Care Provider [phone] Encounter Details Date Type Department Care Team (Latest Contact Info) Description 01/17/2005 Outpatient Historical [facility] Services-Nilay Robles [place] [address] [place] [address] Juma Eng, DPM [address] [place] [address] BUNION (Primary Dx) Social History Tobacco Use Types Packs/Day Years Used Date Smoking Tobacco: Never Assessed Sex and Gender Information Value Date Recorded Sex Assigned at Not on file 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
--- OUTSIDE RECORDS SUMMARY | 2024-12-17 11:07 | XMS_ITS | Encounter Summary ---
Author Organization [facility] Address [address] [facility] [place] [address] Care Team Providers Care [employer] Name Role Phone Srinivasa Anderson MD Primary Care Provider [phone] Encounter Details Date Type Department Care Team (Latest Contact Info) Description 06/29/1999 Outpatient Historical [facility]- [facility] [place] [address] [place] [phone] Zoltan Mahoney MD NO ADDRESS ON FILE Actinic keratosis (Primary Dx); Malig amado skin arm; Inflamed seborr keratos Social History Tobacco Use Types Packs/Day Years Used Date Smoking Tobacco: Never Assessed Sex and Gender Information Value Date Recorded Sex Assigned at Not on file 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
--- OUTSIDE RECORDS SUMMARY | 2024-12-17 11:07 | XMS_ITS | Encounter Summary ---
Author Organization [facility] Address [address] [facility] [place] [address] Care Team Providers Care Material Damage Appraiser Name Role Phone Srinivasa Anderson MD Primary Care Provider [phone] Encounter Details Date Type Department Care Team (Latest Contact Info) Description 10/01/1997 Outpatient Historical [facility] D[facility]- [facility] [place] [address] [place] [address] Zoltan Mahoney MD NO ADDRESS ON FILE Actinic keratosis (Primary Dx); 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 Social History Tobacco Use Types Packs/Day Years Used Date Smoking Tobacco: Never Assessed Sex and Gender Information Value Date Recorded Sex Assigned at Not on file Legal Sex Male 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
--- OUTSIDE RECORDS SUMMARY | 2024-12-17 11:07 | XMS_ITS | Encounter Summary ---
Author Organization [facility] Address [address] [facility] [place] [address] Care Team Providers Care Social Services Specialist Name Role Phone Srinivasa Anderson MD Primary Care Provider [phone] Encounter Details Date Type Department Care Team (Latest Contact Info) Description 10/26/2004 Outpatient Historical [facility] [place] [address] [place] [address] Zoltan Mahoney MD NO ADDRESS ON FILE Malig amado skin arm (Primary Dx); ACTINIC KERATOSIS; Inflamed seborr keratos; SEBORRHEIC KERATOSIS NOS Social History Tobacco Use Types Packs/Day Years Used Date Smoking Tobacco: Never Assessed Sex and Gender Information Value Date Recorded Sex Assigned at Not on file 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 Gender Identity Not on file Sexual Orientation Not on file documented as of this encounter Plan of Treatment Not on file documented as of this encounter Visit Diagnoses Diagnosis Malig amado skin arm- 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
--- OUTSIDE RECORDS SUMMARY | 2024-12-17 11:07 | XMS_ITS | Encounter Summary ---
Author Organization [facility] Address [address] [facility] [address] Care Team Providers Care Sales Office Assistant Name Role Phone Srinivasa Anderson MD Primary Care Provider [phone] Encounter Details Date Type Department Care Team (Latest Contact Info) Description 11/10/2003 Outpatient Historical [facility] Int [facility] [place] [place] [address] Mark Lux MD [address] [place] [address] HYPERTENSION NOS (Primary Dx); Pure hypercholesterolem; B12 DEFIC ANEMIA NEC Social History Tobacco Use Types Packs/Day Years Used Date Smoking Tobacco: Never Assessed Sex and Gender Information Value Date Recorded Sex Assigned at Not on file 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
--- OUTSIDE RECORDS SUMMARY | 2024-12-17 11:07 | XMS_ITS | Encounter Summary ---
Author Organization [facility] Address [address] [facility] [place] [place] [address] Care Team Providers Care Signs And Displays Sales Representative Name Role Phone Srinivasa Anderson MD Primary Care Provider [phone] Encounter Details Date Type Department Care Team (Latest Contact Info) Description 09/23/2002 Outpatient Historical [facility] Dermatology- [facility] [place] [address] [place] [address] Zoltan Mahoney MD NO ADDRESS ON FILE ACTINIC KERATOSIS (Primary Dx); MALIG NEOPLASM SKIN FACE NEC; Inflamed seborr keratos Social History Tobacco Use Types Packs/Day Years Used Date Smoking Tobacco: Never Assessed Sex and Gender Information Value Date Recorded Sex Assigned at Not on file 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
--- OUTSIDE RECORDS SUMMARY | 2024-12-17 11:07 | XMS_ITS | Encounter Summary ---
Author Organization 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 SERVICE 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 ANTICOAG USE; PULM EMBOLISM/INFARCT IATROGENIC (CMS/HCC) Social History Tobacco Use Types Packs/Day Years Used Date Smoking Tobacco: Never Assessed Sex and Gender Information Value Date Recorded Sex Assigned at Not on file 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 Gender Identity Not on file Sexual Orientation Not on file documented as of this encounter Plan of Treatment Not on file documented as of this encounter Visit Diagnoses Diagnosis Unspecified essential hypertension- Primary lobsterman (current) use of anticoagulants Long-term (current) use of anticoagulants 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
--- OUTSIDE RECORDS SUMMARY | 2024-12-17 11:07 | XMS_ITS | Encounter Summary ---
Author Organization [facility] Address [address] [place] [address] Care Team Providers Care Human Resources Manager Name Role Phone Srinivasa Anderson MD Primary Care Provider [phone] Encounter Details Date Type Department Care Team (Latest Contact Info) Description 08/30/[address] 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
--- OUTSIDE RECORDS SUMMARY | 2024-12-17 11:07 | XMS_ITS | Encounter Summary ---
Author Organization [facility] Address [address] [facility] [place] [address] Care Team Providers Care Hide Tanner Name Role Phone Srinivasa Anderson MD Primary Care Provider [phone] Encounter Details Date Type Department Care Team (Latest Contact Info) Description 10/24/2001 Outpatient Historical [facility] Int [facility] [place] [place] [address] Mark Lux MD [address] [place] [address] HYPERTENSION NOS (Primary Dx); Pure hypercholesterolem; OSTEOARTHROS NOS-UNSPEC Social History Tobacco Use Types Packs/Day Years Used Date Smoking Tobacco: Never Assessed Sex and Gender Information Value Date Recorded Sex Assigned at Not on file 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
--- OUTSIDE RECORDS SUMMARY | 2024-12-17 11:07 | XMS_ITS | Encounter Summary ---
Author Organization [facility] Address [address] [place] [address] Care Team Providers Care Sweat Band Separator Name Role Phone Srinivasa Anderson MD Primary Care Provider [phone] Encounter Details Date Type Department Care Team (Latest Contact Info) Description 02/14/2005 Outpatient Historical [facility] Imaging Services [address] [place] [address] Shelia Alberto, RN NO ADDRESS ON FILE SCREENING-CARDIOVAS C NEC (Primary Dx) Social History Tobacco Use Types Packs/Day Years Used Date Smoking Tobacco: Never Assessed Sex and Gender Information Value Date Recorded Sex Assigned at Not on file 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
--- OUTSIDE RECORDS SUMMARY | 2024-12-17 11:07 | XMS_ITS | Encounter Summary ---
Author Organization [facility] Address [address] [place] [address] Care Team Providers Care Upholstery Trimmer Name Role Phone Srinivasa Anderson MD Primary Care Provider [phone] Encounter Details Date Type Department Care Team (Latest Contact Info) Description 02/17/2004 Outpatient Historical [facility] Imaging Services-[place] [address] [place] [address] Mark Lux MD [address] [place] [address] ABNORMAL FINDINGS- ORGANS (Primary Dx) Social History Tobacco Use Types Packs/Day Years Used Date Smoking Tobacco: Never Assessed Sex and Gender Information Value Date Recorded Sex Assigned at Not on file Legal Sex Male 3:08 AM 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
--- OUTSIDE RECORDS SUMMARY | 2024-12-17 11:07 | XMS_ITS | Encounter Summary ---
Author Organization [facility] Address [address] [facility] [place] [address] Care Team Providers Care Brass Polisher Name Role Phone Srinivasa Anderson MD Primary Care Provider [phone] Encounter Details Date Type Department Care Team (Latest Contact Info) Description 01/23/1999 Outpatient Historical [facility] [place] [address] [place] [address] Zoltan Mahoney MD NO ADDRESS ON FILE 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 (Primary Dx); Other seborrheic keratosis Social History Tobacco Use Types Packs/Day Years Used Date Smoking Tobacco: Never Assessed Sex and Gender Information Value Date Recorded Sex Assigned at Not on file 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
--- OUTSIDE RECORDS SUMMARY | 2024-12-17 11:07 | XMS_ITS | Encounter Summary ---
Author Organization [facility] Address [address] [place] [facility] [place] [address] Care Team Providers Care Product Development Actuary Name Role Phone Srinivasa Anderson MD Primary Care Provider [phone] Encounter Details Date Type Department Care Team (Latest Contact Info) Description 10/03/2004 Outpatient [facility] [place] [place] [address] Srinivasa Anderson MD [address] [place] [address] HYPERTENSION NOS (Primary Dx); Plantar fibromatosis; OTHER MALAISE AND FATIGUE; Toxic effect venom Social History Tobacco Use Types Packs/Day Years Used Date Smoking Tobacco: Never Assessed Sex and Gender Information Value Date Recorded Sex Assigned at Not on file 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
--- OUTSIDE RECORDS SUMMARY | 2024-12-17 11:07 | XMS_ITS | Encounter Summary ---
Author Organization [facility] Address [address] [place] [facility] [place] [address] Care Team Providers Care Community Support Worker Name Role Phone Srinivasa Anderson MD Primary Care Provider [phone] Encounter Details Date Type Department Care Team (Latest Contact Info) Description 05/22/2005 Outpatient Historical [facility] [place] [place] [address] Srinivasa Anderson MD [address] [place] [address] TESTICULAR HYPOFUNC NEC (Primary Dx); FOLLOW-UP EXAM NOS Social History Tobacco Use Types Packs/Day Years Used Date Smoking Tobacco: Never Assessed Sex and Gender Information Value Date Recorded Sex Assigned at Not on file Legal Sex Male 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
--- OUTSIDE RECORDS SUMMARY | 2024-12-17 11:07 | XMS_ITS | Encounter Summary ---
Author Organization [facility] Address [address] [facility] [place] [address] Care Team Providers Care Aircraft Ordnance Technician Name Role Phone Srinivasa Anderson MD Primary Care Provider [phone] Encounter Details Date Type Department Care Team (Late st Contact Info) Description 11/05/2000 Outpatient Historical [facility] Int [facility] [place] [place] [address] Yfn Hahn MD [address] [place] [address] Allergic rhinitis, cause unspecified (Primary Dx); Unspecified essential hypertension Social History Tobacco Use Types Packs/Day Years Used Date Smoking Tobacco: Never Assessed Sex and Gender Information Value Date Recorded Sex Assigned at Not on file 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
--- OUTSIDE RECORDS SUMMARY | 2024-12-17 11:07 | XMS_ITS | Encounter Summary ---
Author Organization [facility] Address [address] [facility] [place] [address] Care Team Providers Care Fashion Buyer Name Role Phone Srinivasa Anderson MD Primary Care Provider [phone] Encounter Details Date Type Department Care Team (Latest Contact Info) Description 06/03/1997 Outpatient Historical [facility] [place] [address] [place] [address] Zoltan Mahoney MD NO ADDRESS ON FILE 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 (Primary Dx); Inflamed seborr keratos; Other seborrheic keratosis Social History Tobacco Use Types Packs/Day Years Used Date Smoking Tobacco: Never Assessed Sex and Gender Information Value Date Recorded Sex Assigned at Not on file 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
--- OUTSIDE RECORDS SUMMARY | 2024-12-17 11:07 | XMS_ITS | Encounter Summary ---
Author Organization [facility] Address [address] [facility] [place] [address] Care Team Providers Care Pottery Decorator Name Role Phone Srinivasa Anderson MD Primary Care Provider [phone] Encounter Details Date Type Department Care Team (Late st Contact Info) Description 02/17/2001 Outpatient Historical [facility] Imaging Services[place] [address] [place] [address] Yfn Hahn MD [address] [place] [address] COUGH (Primary Dx); RESPIRATORY ABNORM NEC Social History Tobacco Use Types Packs/Day Years Used Date Smoking Tobacco: Never Assessed Sex and Gender Information Value Date Recorded Sex Assigned at Not on file 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
--- OUTSIDE RECORDS SUMMARY | 2024-12-17 11:07 | XMS_ITS | Encounter Summary ---
Author Organization [facility] Address [address] [place] [address] Care Team Providers Care Locomotive Firer Name Role Phone Srinivasa Anderson MD Primary Care Provider [phone] Encounter Details Date Type Department Care Team (Latest Contact Info) Description 02/15/2004 Outpatient Historical [facility] Imaging Services-[place] Rob[place] [address] [place] [address] Mark Lux MD [address] [place] [address] HEMATURIA (Primary Dx) Social History Tobacco Use Types Packs/Day Years Used Date Smoking Tobacco: Never Assessed Sex and Gender Information Value Date Recorded Sex Assigned at Not on file Legal Sex Male 3: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
--- OUTSIDE RECORDS SUMMARY | 2024-12-17 11:07 | XMS_ITS | Encounter Summary ---
Author Organization [facility] Address [address] [place] [address] Care Team Providers Care Tobacco Drummer Name Role Phone Srinivasa Anderson MD Primary Care Provider [phone] Encounter Details Date Type Department Care Team (Latest Contact Info) Description 09/01/2002 Outpatient Historical [facility] Imaging Services [address] [place] [address] Mark Lux MD [address] [place] [address] JOINT PAIN-PELVIS (Primary Dx) Social History Tobacco Use Types Packs/Day Years Used Date Smoking Tobacco: Never Assessed Sex and Gender Information Value Date Recorded Sex Assigned at Not on file Legal Sex Male 3:08 AM CARAMEL CUTTER HAND Gender Identity Not on file Sexual Orientation Not on file documented as of this encounter Plan of Treatment Not on file documented as of this encounter Visit Diagnoses Diagnosis Pain in joint, pelvic region and thigh- Primary documented in this encounter Care Teams Tobacco Drummer Relationship Specialty Start Date End Date Srinivasa Anderson MD [address] [facility] [address] [place] [address] PCP - General 07/18/04 documented as of this encounter
--- OUTSIDE RECORDS SUMMARY | 2024-12-17 11:07 | XMS_ITS | Encounter Summary ---
Author Organization [facility] Address [address] [facility] [place] [address] Care Team Providers Care Dog Trainer Name Role Phone Srinivasa Anderson MD Primary Care Provider [phone] Encounter Details Date Type Department Care Team (Latest Contact Info) Description 04/05/2003 Outpatient Historical [facility] Imaging Services-[place] [address] [place] [address] Mark Lux MD [address] [place] [address] ABDOMINAL PAIN EPIGASTRIC (Primary Dx) Social History Tobacco Use Types Packs/Day Years Used Date Smoking Tobacco: Never Assessed Sex and Gender Information Value Date Recorded Sex Assigned at Not on file 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
--- OUTSIDE RECORDS SUMMARY | 2024-12-17 11:07 | XMS_ITS | Encounter Summary ---
Author Organization [facility] Address [address] [facility] [address] Care Team Providers Care Pipe Line Walker Name Role Phone Srinivasa Anderson MD Primary Care Provider [phone] Encounter Details Date Type Department Care Team (Latest Contact Info) Description 08/04/2002 Outpatient Historical [facility] Int [facility] [place] [place] [address] Mark Lux MD [address] [place] [address] JOINT PAIN-PELVIS (Primary Dx) Social History Tobacco Use Types Packs/Day Years Used Date Smoking Tobacco: Never Assessed Sex and Gender Information Value Date Recorded Sex Assigned at Not on file 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
--- OUTSIDE RECORDS SUMMARY | 2024-12-17 11:07 | XMS_ITS | Encounter Summary ---
Author Organization [facility] Address [address] 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
--- OUTSIDE RECORDS SUMMARY | 2024-12-17 11:07 | XMS_ITS | Encounter Summary ---
Author Organization [facility] Address [address] [place] [place] [address] Care Team Providers Care Fish Hatchery Supervisor Name Role Phone Srinivasa Anderson MD Primary Care Provider [phone] Encounter Details Date Type Department Care Team (Latest Contact Info) Description 03/25/2003 Outpatient Historical [facility] Dermatology- [facility] [place] [address] [place] [address] Zoltan Mahoney MD NO ADDRESS ON FILE ACTINIC KERATOSIS (Primary Dx); Inflamed seborr keratos; SEBORRHEIC KERATOSIS NOS Social History Tobacco Use Types Packs/Day Years Used Date Smoking Tobacco: Never Assessed Sex and Gender Information Value Date Recorded Sex Assigned at Not on file 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
--- OUTSIDE RECORDS SUMMARY | 2024-12-17 11:07 | XMS_ITS | Encounter Summary ---
Author Organization 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 Social History Tobacco Use Types Packs/Day Years Used Date Smoking Tobacco: Never Assessed Sex and Gender Information Value Date Recorded Sex Assigned at Not on file 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
--- OUTSIDE RECORDS SUMMARY | 2024-12-17 11:07 | XMS_ITS | Encounter Summary ---
Author Organization [facility] Address [address] [place] [address] Care Team Providers Care Rack Worker Name Role Phone Srinivasa Anderson MD Primary Care Provider [phone] Encounter Details Date Type Department Care Team (Latest Contact Info) Description 07/18/2004 Outpatient Historical [facility] Endoscopy [place] [address] [facility] [address] [place] [address] Ar Stanton MD NO ADDRESS ON FILE INT HEMORRHOID W/O COMPL (Primary Dx) Social History Tobacco Use Types Packs/Day Years Used Date Smoking Tobacco: Never Assessed Sex and Gender Information Value Date Recorded Sex Assigned at Not on file 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
--- OUTSIDE RECORDS SUMMARY | 2024-12-17 11:07 | XMS_ITS | Encounter Summary ---
Author Organization [facility] Address [address] [place] [address] Care Team Providers Care Beater Machine Operator Name Role Phone Srinivasa Anderson MD Primary Care Provider [phone] Encounter Details Date Type Department Care Team (Latest Contact Info) Description 07/18/2004 Outpatient [facility] Gastroenterology- [place] [address] [place] [address] Ar Stanton MD NO ADDRESS ON FILE FOLLOW-UP EXAM NOS (Primary Dx); PERS HX COLONIC POLYPS; Diverticulosis of colon; INT HEMORRHOID W/O COMPL Social History Tobacco Use Types Packs/Day Years Used Date Smoking Tobacco: Never Assessed Sex and Gender Information Value Date Recorded Sex Assigned at Not on file 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 Gender Identity Not on file Sexual Orientation Not on file documented as of this encounter Plan of Treatment Not on file documented as of this encounter Visit Diagnoses Diagnosis Unspecified follow-up examination- Primary Personal history of colonic polyps Diverticulosis of colon Diverticulosis of colon (without mention of hemorrhage) Internal hemorrhoids without mention of complication documented in this encounter Care Teams Beater Machine Operator Relationship Specialty Start Date End Date Srinivasa Anderson MD [address] [place] [address] PCP - General 07/18/04 documented as of this encounter
--- OUTSIDE RECORDS SUMMARY | 2024-12-17 11:07 | XMS_ITS | Encounter Summary ---
Author Organization [facility] Address [address] [place] [address] Care Team Providers Care Twist Tester Name Role Phone Srinivasa Anderson MD Primary Care Provider [phone] Reason for Visit * Reason Onset Date Comments Question 09/13/2022 Encounter Details Date Type Department Care Team (Late st Contact Info) Description 09/13/2022 Telephone [facility] [address] [place] [address] Jaden Vital MD NO ADDRESS ON FILE Question Social History Tobacco Use Types Packs/Day Years Used Date Smoking Tobacco: Never Smokeless Tobacco: Former Alcohol Use Standard Drinks/Week Comments Yes 1 (1 standard drink = 0.6 oz pur e alcohol) Sex and Gender Information Value Date Recorded Sex Assigned at Not on file Legal Sex Male 6:28 AM BEHAVIORAL HEALTH ASSOCIATE Gender Identity Not on file Sexual [...] Provider: Zahraa Person calling: Sultana Phone #: [phone] Relationship to patient: , PHI not signed [...] Description 12/25/2024 1:30 PM CDT Office Visit [facility] Juan [place]ay [place] [place] [address] Srinivasa Anderson MD [address] [facility] [address] [place] [address] 01/12/2025 8:15 AM CDT Procedure visit [facility] [address] [place] [address] Mariela Stone MD [address] [place] [address] 03/26/2025 11:40 AM BEHAVIORAL HEALTH ASSOCIATE Office Visit [facility] [address] [place] [address] Dominic Haskins CRNP [address] [place] [address] 07/08/2025 1:00 PM CDT Office Visit [facility] [address] [place] [address] Kodak Samuel MD [address] [place] [phone] documented as of this encounter Visit Diagnoses Not on filedocumented in this encounter Care Teams Twist Tester Relationship Specialty Start Date End Date Srinivasa Anderson MD [address] [facility] [address] [place] [address] PCP - General Family Practice 05/18/24 documented as of this encounter
--- OUTSIDE RECORDS SUMMARY | 2024-12-17 11:07 | XMS_ITS | Encounter Summary ---
Author Organization [facility] Address [address] [place] [address] Care Team Providers Care Section Housekeeper Name Role Phone Srinivasa Anderson MD Primary Care Provider [phone] Encounter Details Date Type Department Care Team (Latest Contact Info) Description 03/04/2003 Outpatient Historical [facility] Int [facility] [place] [place] [address] Mark Lux MD [address] [place] [address] ABDOMINAL PAIN UNSPEC SITE (Primary Dx); LUMBAGO; ANXIETY STATE NOS Social History Tobacco Use Types Packs/Day Years Used Date Smoking Tobacco: Never Assessed Sex and Gender Information Value Date Recorded Sex Assigned at Not on file 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
--- OUTSIDE RECORDS SUMMARY | 2024-12-17 11:07 | XMS_ITS | Encounter Summary ---
Author Organization [facility] Address [address] [place] [address] Care Team Providers Care Bath Steward Name Role Phone Srinivasa Anderson MD Primary Care Provider [phone] Encounter Details Date Type Department Care Team (Latest Contact Info) Description 03/27/2005 Outpatient Historical [facility] Dermatology[facility] [place] [facility] [place] [address] [place] [address] Zoltan Mahoney MD NO ADDRESS ON FILE ACTINIC KERATOSIS (Primary Dx); Inflamed seborr keratos; SEBORRHEIC KERATOSIS NOS; Malig amado skin arm Social History Tobacco Use Types Packs/Day Years Used Date Smoking Tobacco: Never Assessed Sex and Gender Information Value Date Recorded Sex Assigned at Not on file 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 Gender Identity Not on file Sexual Orientation Not on file documented as of this encounter Plan of Treatment Not on file documented as of this encounter Visit Diagnoses Diagnosis Actinic keratosis- Primary Inflamed seborr keratos Inflamed seborrheic keratosis Other seborrheic keratosis Malig amado skin arm 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
--- OUTSIDE RECORDS SUMMARY | 2024-12-17 11:07 | XMS_ITS | Encounter Summary ---
Author Organization [facility] Address [address] [facility] [place] [address] Care Team Providers Care Terrazzo Helper Name Role Phone Srinivasa Anderson MD Primary Care Provider [phone] Encounter Details Date Type Department Care Team (Latest Contact Info) Description 05/07/2003 Outpatient Historical [facility] Int 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
--- OUTSIDE RECORDS SUMMARY | 2024-12-17 11:07 | XMS_ITS | Encounter Summary ---
Author Organization [facility] Address [address] [address] Care Team Providers Care Business Operations Specialist Name Role Phone Srinivasa Anderson MD Primary Care Provider [phone] Encounter Details Date Type Department Care Team (Latest Contact Info) Description 10/26/2004 Outpatient Historical [facility] [place] [place] [address] Srinivasa Anderson MD [address] [place] [address] TESTICULAR HYPOFUNC NEC (Primary Dx) Social History Tobacco Use Types Packs/Day Years Used Date Smoking Tobacco: Never Assessed Sex and Gender Information Value Date Recorded Sex Assigned at Not on file 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
--- OUTSIDE RECORDS SUMMARY | 2024-12-17 11:07 | XMS_ITS | Encounter Summary ---
Author Organization [facility] Address [address] [place] [address] Care Team Providers Care Campus Monitor Name Role Phone Srinivasa Anderson MD Primary Care Provider [phone] Encounter Details Date Type Department Care Team (Latest Contact Info) Description 2005 Outpatient Historical [facility] [place] [place] [address] Srinivasa Anderson MD [address] [place] [address] Other Testicular Hypofunction (Primary Dx) Social History Tobacco Use Types Packs/Day Years Used Date Smoking Tobacco: Never Assessed Sex and Gender Information Value Date Recorded Sex Assigned at Not on file 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
--- OUTSIDE RECORDS SUMMARY | 2024-12-17 11:07 | XMS_ITS | Encounter Summary ---
Author Organization [facility] Address [address] [place] [address] Care Team Providers Care Claims Examiner Name Role Phone Srinivasa Anderson MD Primary Care Provider [phone] Encounter Details Date Type Department Care Team (Latest Contact Info) Description 11/06/2002 Outpatient Historical [facility] Imaging Services-Nilay Robles [place] [address] [place] [address] Mark Lux MD [address] [place] [address] HYPERTENSION NOS (Primary Dx) Social History Tobacco Use Types Packs/Day Years Used Date Smoking Tobacco: Never Assessed Sex and Gender Information Value Date Recorded Sex Assigned at Not on file 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
--- OUTSIDE RECORDS SUMMARY | 2024-12-17 11:07 | XMS_ITS | Encounter Summary ---
Author Organization [facility] Address [address] [place] [address] Care Team Providers Care Manager Ccu Name Role Phone Srinivasa Anderson MD Primary Care Provider [phone] Encounter Details Date Type Department Care Team (Latest Contact Info) Description 06/13/2005 Outpatient Historical [facility] [place] [place] [address] Srinivasa Anderson MD [address] [place] [address] TESTICULAR HYPOFUNC NEC (Primary Dx) Social History Tobacco Use Types Packs/Day Years Used Date Smoking Tobacco: Never Assessed Sex and Gender Information Value Date Recorded Sex Assigned at Not on file 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
--- OUTSIDE RECORDS SUMMARY | 2024-12-17 11:07 | XMS_ITS | Encounter Summary ---
Author Organization [facility] Address [address] [place] [address] Care Team Providers Care Barrelhead Inspector Name Role Phone Srinivasa Anderson MD Primary Care Provider [phone] Encounter Details Date Type Department Care Team (Late st Contact Info) Description 03/30/2004 Outpatient Historical [facility]rology- [place] [address] [place] [address] Erasmo Rosas MD NO ADDRESS ON FILE OTHER SPEC DISORDER URINARY TRACT (Primary Dx) Social History Tobacco Use Types Packs/Day Years Used Date Smoking Tobacco: Never Assessed Sex and Gender Information Value Date Recorded Sex Assigned at Not on file 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
--- OUTSIDE RECORDS SUMMARY | 2024-12-17 11:07 | XMS_ITS | Encounter Summary ---
Author Organization [facility] Address [address] [place] [address] Care Team Providers Care Asp Net Developer Name Role Phone Srinivasa Anderson MD Primary Care Provider [phone] Encounter Details Date Type Department Care Team (Late st Contact Info) Description 10/21/2000 Outpatient Historical [facility] Int [facility] [place] [place] [address] Yfn Hahn MD [address] [place] [address] Routine medical exam (Primary Dx) Social History Tobacco Use Types Packs/Day Years Used Date Smoking Tobacco: Never Assessed Sex and Gender Information Value Date Recorded Sex Assigned at Not on file 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
--- OUTSIDE RECORDS SUMMARY | 2024-12-17 11:07 | XMS_ITS | Encounter Summary ---
Author Organization [facility] Address [address] [place] [address] Care Team Providers Care Mine Environmental Engineer Name Role Phone Srinivasa Anderson MD Primary Care Provider [phone] Encounter Details Date Type Department Care Team (Latest Contact Info) Description 10/14/2001 Outpatient Historical [facility] Imaging Services-Nilay Robles [place] [address] [place] [address] Mark Lux MD [address] [place] [address] HYPERTENSION NOS (Primary Dx) Social History Tobacco Use Types Packs/Day Years Used Date Smoking Tobacco: Never Assessed Sex and Gender Information Value Date Recorded Sex Assigned at Not on file 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
--- OUTSIDE RECORDS SUMMARY | 2024-12-17 11:07 | XMS_ITS | Encounter Summary ---
Author Organization [facility] Address [address] [place] [address] Care Team Providers Care Air Defence Officer Name Role Phone Srinivasa Anderson MD Primary Care Provider [phone] Encounter Details Date Type Department Care Team (Latest Contact Info) Description 03/09/2005 Outpatient Historical [facility] [place] [place] [address] Srinivasa Anderson MD [address] [place] [address] TESTICULAR HYPOFUNC NEC (Primary Dx) Social History Tobacco Use Types Packs/Day Years Used Date Smoking Tobacco: Never Assessed Sex and Gender Information Value Date Recorded Sex Assigned at Not on file 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
--- OUTSIDE RECORDS SUMMARY | 2024-12-17 11:07 | XMS_ITS | Encounter Summary ---
Author Organization [facility] Address [address] [place] [address] Care Team Providers Care Ornamental Plasterer Helper Name Role Phone Srinivasa Anderson MD Primary Care Provider [phone] Encounter Details Date Type Department Care Team (Latest Contact Info) Description 09/08/2002 Outpatient Historical [facility] Robbi Post MD [address] [facility] [place] [phone] Spondylolisthesis (Primary Dx); JOINT PAIN-PELVIS; LUMBAGO Social History Tobacco Use Types Packs/Day Years Used Date Smoking Tobacco: Never Assessed Sex and Gender Information Value Date Recorded Sex Assigned at Not on file Legal Sex Male 3: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
--- OUTSIDE RECORDS SUMMARY | 2024-12-17 11:07 | XMS_ITS | Encounter Summary ---
Author Organization [facility] Address [address] [place] [address] Care Team Providers Care Collection Systems Worker Name Role Phone Srinivasa Anderson MD Primary Care Provider [phone] Encounter Details Date Type Department Care Team (Latest Contact Info) Description 11/10/2003 Outpatient Historical [facility] Imaging Services-Nilay Robles [place] [address] [place] [address] Mark Lux MD [address] [place] [address] HYPERTENSION NOS (Primary Dx) Social History Tobacco Use Types Packs/Day Years Used Date Smoking Tobacco: Never Assessed Sex and Gender Information Value Date Recorded Sex Assigned at Not on file Legal Sex Male 3: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
--- OUTSIDE RECORDS SUMMARY | 2024-12-17 11:07 | XMS_ITS | Encounter Summary ---
Author Organization [facility] Address [address] [place] [address] Care Team Providers Care Brim Pouncing Machine Operator Name Role Phone Srinivasa Anderson MD Primary Care Provider [phone] Encounter Details Date Type Department Care Team (Latest Contact Info) Description 04/18/2005 Outpatient Historical [facility] [place] [place] [address] Srinivasa Anderson MD [address] [place] [address] TESTICULAR HYPOFUNC NEC (Primary Dx) Social History Tobacco Use Types Packs/Day Years Used Date Smoking Tobacco: Never Assessed Sex and Gender Information Value Date Recorded Sex Assigned at Not on file 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
--- OUTSIDE RECORDS SUMMARY | 2024-12-17 11:07 | XMS_ITS | Encounter Summary ---
Author Organization [facility] Address [address] [place] [address] Care Team Providers Care Truck Driver Flatbed Name Role Phone Srinivasa Anderson MD Primary Care Provider Encounter Details Date Type Department Care Team (Latest Contact Info) Description 12/02/2001 Outpatient Historical [facility] [place] [place] [address] Mark Lux MD [address] [place] [address] Pure hypercholesterolem (Primary Dx); HYPERTENSION NOS Social History Tobacco Use Types Packs/Day Years Used Date Smoking Tobacco: Never Assessed Sex and Gender Information Value Date Recorded Sex Assigned at Not on file Legal Sex Male 3:08 AM EASTER BUNNY Gender Identity Not on file Sexual Orientation Not on file documented as of this encounter Plan of Treatment Not on file documented as of this encounter Visit Diagnoses Diagnosis Pure hypercholesterolem- Primary Pure hypercholesterolemia Unspecified essential hypertension documented in this encounter Care Teams Truck Driver Flatbed Relationship Specialty Start Date End Date Srinivasa Anderson MD [address] [place] [address] PCP - General 07/18/04 documented as of this encounter
--- OUTSIDE RECORDS SUMMARY | 2024-12-17 11:07 | XMS_ITS | Encounter Summary ---
Author Organization [facility] Address [address] [place] [address] Care Team Providers Care Director Federal Name Role Phone Srinivasa Anderson MD Primary Care Provider [phone] Encounter Details Date Type Department Care Team (Latest Contact Info) Description 02/08/2004 Outpatient Historical [facility] Imaging Services-Nilay Robles [place] [address] [place] [address] Mark Lux MD [address] [place] [address] HEMATURIA (Primary Dx) Social History Tobacco Use Types Packs/Day Years Used Date Smoking Tobacco: Never Assessed Sex and Gender Information Value Date Recorded Sex Assigned at Not on file Legal Sex Male 3:08 AM PLASTIC SURGERY MANAGER Gender Identity Not on file Sexual Orientation Not on file documented as of this encounter Plan of Treatment Not on file documented as of this encounter Visit Diagnoses Diagnosis Hematuria- Primary documented in this encounter Care Teams Director Federal Relationship Specialty Start Date End Date Srinivasa Anderson MD [address] [place] [address] PCP - General 07/18/04 documented as of this encounter
--- OUTSIDE RECORDS SUMMARY | 2024-12-17 11:07 | XMS_ITS | Encounter Summary ---
Author Organization [facility] Address [address] [place] [address] Care Team Providers Care Surveillance Sensor Officer Name Role Phone Srinivasa Anderson MD Primary Care Provider [phone] Encounter Details Date Type Department Care Team (Latest Contact Info) Description 05/30/1998 Outpatient Historical [facility] Dermatology- [facility] [place] [address] [place] [address] Zoltan Mahoney MD NO ADDRESS ON FILE Other seborrheic keratosis (Primary Dx) Social History Tobacco Use Types Packs/Day Years Used Date Smoking Tobacco: Never Assessed Sex and Gender Information Value Date Recorded Sex Assigned at Not on file Legal Sex Male 3:08 AM E LEARNING COORDINATOR Gender Identity Not on file Sexual Orientation Not on file documented as of this encounter Plan of Treatment Not on file documented as of this encounter Visit Diagnoses Diagnosis Other seborrheic keratosis- Primary documented in this encounter Care Teams Surveillance Sensor Officer Relationship Specialty Start Date End Date Srinivasa Anderson MD [address] [place] [address] PCP - General 07/18/04 documented as of this encounter
--- OUTSIDE RECORDS SUMMARY | 2024-12-17 11:07 | XMS_ITS | Encounter Summary ---
Author Organization [facility] Address [address] [place] [address] Care Team Providers Care Train Control Technician Name Role Phone Srinivasa Anderson MD Primary Care Provider [phone] Encounter Details Date Type Department Care Team (Latest Contact Info) Description 11/30/2003 Outpatient Historical [facility] Dermatology- [facility] [place] [address] [place] [address] Zoltan Mahoney MD NO ADDRESS ON FILE ACTINIC KERATOSIS (Primary Dx); Inflamed seborr keratos; SEBORRHEIC KERATOSIS NOS Social History Tobacco Use Types Packs/Day Years Used Date Smoking Tobacco: Never Assessed Sex and Gender Information Value Date Recorded Sex Assigned at Not on file Legal Sex Male 3:08 AM VETERINARY MANAGER Gender Identity Not on file Sexual Orientation Not on file documented as of this encounter Plan of Treatment Not on file documented as of this encounter Visit Diagnoses Diagnosis Actinic keratosis- Primary Inflamed seborr keratos Inflamed seborrheic keratosis Other seborrheic keratosis documented in this encounter Care Teams Train Control Technician Relationship Specialty Start Date End Date Srinivasa Anderson MD [address] [place] [phone] PCP - General 07/18/04 documented as of this encounter
--- OUTSIDE RECORDS SUMMARY | 2024-12-17 11:07 | XMS_ITS | Encounter Summary ---
Author Organization [facility] Address [address] [place] [address] Care Team Providers Care Inspecting And Testing Lead Hand Name Role Phone Srinivasa Anderson MD Primary Care Provider [phone] Encounter Details Date Type Department Care Team (Latest Contact Info) Description 04/25/2004 Outpatient Historical [facility] [place] [place] [address] Srinivasa Anderson MD [address] [place] [address] PULM EMBOLISM/INFARCT NOS (CMS/HCC) (Primary Dx); HYPERTENSION NOS Social History Tobacco Use Types Packs/Day Years Used Date Smoking Tobacco: Never Assessed Sex and Gender Information Value Date Recorded Sex Assigned at Not on file Legal Sex Male 3:08 AM WOOD PREPARATION SUPERVISOR Gender Identity Not on file Sexual Orientation Not on file documented as of this encounter Plan of Treatment Not on file documented as of this encounter Visit Diagnoses Diagnosis 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
--- OUTSIDE RECORDS SUMMARY | 2024-12-17 11:07 | XMS_ITS | Encounter Summary ---
Author Organization [facility] Address [address] [place] [address] Care Team Providers Care Director Of Clinical Applications Name Role Phone Srinivasa Anderson MD Primary Care Provider [phone] Encounter Details Date Type Department Care Team (Late st Contact Info) Description 12/30/2000 Outpatient Historical [facility] Ynf Hahn MD [address] [place], [place] [id number] Other pulmonary embolism and infarction (CMS/HCC) (Primary Dx) Social History Tobacco Use Types Packs/Day Years Used Date Smoking Tobacco: Never Assessed Sex and Gender Information Value Date Recorded Sex Assigned at Not on file Legal Sex Male 3:08 AM CHILDRENS CLUB ATTENDANT Gender Identity Not on file Sexual Orientation Not on file documented as of this encounter Plan of Treatment Not on file documented as of this encounter Visit Diagnoses Diagnosis Other pulmonary embolism and infarction (CMS/HCC)- Primary Other pulmonary embolism and infarction documented in this encounter Care Teams Director Of Clinical Applications Relationship Specialty Start Date End Date Srinivasa Anderson MD [address] [place] [address] PCP - General 07/18/04 documented as of this encounter
--- OUTSIDE RECORDS SUMMARY | 2024-12-17 11:07 | XMS_ITS | Encounter Summary ---
Author Organization [facility] Address [address] [place] [address] Care Team Providers Care Crawler Tractor Operator Name Role Phone Srinivasa Anderson MD Primary Care Provider [phone] Encounter Details Date Type Department Care Team (Latest Contact Info) Description 11/06/2002 Outpatient [facility] Int [facility] [place] [place] [address] Mark Lux MD [address] [place] [address] HYPERTENSION NOS (Primary Dx); Pure hypercholesterolem; OTHER MALAISE AND FATIGUE; VACCINE FOR STREP PNEUMONIAE Social History Tobacco Use Types Packs/Day Years Used Date Smoking Tobacco: Never Assessed Sex and Gender Information Value Date Recorded Sex Assigned at Not on file Legal Sex Male 3:08 AM BENDING PRESS OPERATOR Gender Identity Not on file [...] (pneumococcus) documented in this encounter Care Teams Crawler Tractor Operator Relationship Specialty Start Date End Date Srinivasa Anderson MD [address] [place] [address] PCP - General 07/18/04 documented as of this encounter
--- OUTSIDE RECORDS SUMMARY | 2024-12-17 11:07 | XMS_ITS | Encounter Summary ---
Author Organization [facility] Address [address] [facility] [address] Care Team Providers Care Back Office Medical Assistant Name Role Phone Srinivasa Anderson MD Primary Care Provider [phone] Encounter Details Date Type Department Care Team (Latest Contact Info) Description 02/08/2004 Outpatient Historical [facility] [place] [place] [address] Mark Lux MD [address] [place] [address] HEMATURIA (Primary Dx); LUMBAGO; Vaccine for influenza Social History Tobacco Use Types Packs/Day Years Used Date Smoking Tobacco: Never Assessed Sex and Gender Information Value Date Recorded Sex Assigned at Not on file 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
--- OUTSIDE RECORDS SUMMARY | 2024-12-17 11:07 | XMS_ITS | Encounter Summary ---
Author Organization [facility] Address [address] [place] [address] Care Team Providers Care Desk Manager Name Role Phone Srinivasa Anderson MD Primary Care Provider [phone] Encounter Details Date Type Department Care Team (Latest Contact Info) Description 03/27/2005 Outpatient Historical [facility] [address] [place] [address] Zoltan Mahoney MD NO ADDRESS ON FILE ACTINIC KERATOSIS (Primary Dx) Social History Tobacco Use Types Packs/Day Years Used Date Smoking Tobacco: Never Assessed Sex and Gender Information Value Date Recorded Sex Assigned at Not on file Legal Sex Male 3:08 AM FRONT DESK ADMINISTRATOR Gender Identity Not on file Sexual Orientation Not on file documented as of this encounter Plan of Treatment Not on file documented as of this encounter Visit Diagnoses Diagnosis Actinic keratosis- Primary documented in this encounter Care Teams Desk Manager Relationship Specialty Start Date End Date Srinivasa Anderson MD [address] [address] PCP - General 07/18/04 documented as of this encounter
--- OUTSIDE RECORDS SUMMARY | 2024-12-17 11:07 | XMS_ITS | Encounter Summary ---
Author Organization [facility] Address [address] [facility] [place] [address] Care Team Providers Care Membership Secretary Name Role Phone Srinivasa Anderson MD Primary Care Provider [phone] Encounter Details Date Type Department Care Team (Latest Contact Info) Description 02/14/2005 Outpatient Historical [facility] [place] [place] [address] Srinivasa Anderson MD [address] [place] [address] TESTICULAR HYPOFUNC NEC (Primary Dx); Vaccine for influenza Social History Tobacco Use Types Packs/Day Years Used Date Smoking Tobacco: Never Assessed Sex and Gender Information Value Date Recorded Sex Assigned at Not on file Legal Sex Male 3:08 AM TABLE SETTER Gender Identity Not on file Sexual Orientation Not on file documented as of this encounter Plan of Treatment Not on file documented as of this encounter Visit Diagnoses Diagnosis Other testicular hypofunction- Primary Vaccine for influenza Need for prophylactic vaccination and inoculation against influenza documented in this encounter Care Teams Membership Secretary Relationship Specialty Start Date End Date Srinivasa Andesron MD [address] [place] [address] PCP - General 07/18/04 documented as of this encounter
--- OUTSIDE RECORDS SUMMARY | 2024-12-17 11:07 | XMS_ITS | Encounter Summary ---
Author Organization [facility] Address [address] [place] [address] Care Team Providers Care Log Skidder Name Role Phone Srinivasa Anderson MD Primary Care Provider Encounter Details Date Type Department Care Team (Latest Contact Info) Description 02/08/2004 Outpatient Historical [facility] Imaging Services-Nilay Robles [place] [address] [place] [address] Mark Lux MD [address] [place] [address] HEMATURIA (Primary Dx) Social History Tobacco Use Types Packs/Day Years Used Date Smoking Tobacco: Never Assessed Sex and Gender Information Value Date Recorded Sex Assigned at Not on file 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
--- OUTSIDE RECORDS SUMMARY | 2024-12-17 11:07 | XMS_ITS | Encounter Summary ---
Author Organization [facility] Address [address] [facility] [place] [address] Care Team Providers Care Council On Aging Director Name Role Phone Srinivasa Anderson MD Primary Care Provider [phone] Encounter Details Date Type Department Care Team (Latest Contact Info) Description 09/11/2002 Outpatient Historical [facility] Dermatology- [facility] [place] [address] [place] [address] Zoltan Mahoney MD NO ADDRESS ON FILE ACTINIC KERATOSIS (Primary Dx); Malig amado scalp/skin neck; SEBORRHEIC KERATOSIS NOS Social History Tobacco Use Types Packs/Day Years Used Date Smoking Tobacco: Never Assessed Sex and Gender Information Value Date Recorded Sex Assigned at Not on file Legal Sex Male 3:08 AM WEB DATABASE DEVELOPER Gender Identity Not on file Sexual Orientation Not on file documented as of this encounter Plan of Treatment Not on file documented as of this encounter Visit Diagnoses Diagnosis Actinic keratosis- Primary Malig amado scalp/skin neck Unspecified malignant neoplasm of scalp and skin of neck Other seborrheic keratosis documented in this encounter Care Teams Council On Aging Director Relationship Specialty Start Date End Date Srinivasa Anderson MD [address] [place] [address] PCP - General 07/18/04 documented as of this encounter
--- OUTSIDE RECORDS SUMMARY | 2024-12-17 11:07 | XMS_ITS | Encounter Summary ---
Author Organization [facility] Address [address] [place] [address] Care Team Providers Care Gas Engine Operator Compressors Name Role Phone Srinivasa Anderson MD Primary Care Provider [phone] Encounter Details Date Type Department Care Team (Latest Contact Info) Description 09/23/2002 Outpatient Historical [facility] Dermatology- [facility] [place] [address] [place] [address] Zoltan Mahoney MD NO ADDRESS ON FILE MALIG NEOPLASM SKIN EAR (Primary Dx) Social History Tobacco Use Types Packs/Day Years Used Date Smoking Tobacco: Never Assessed Sex and Gender Information Value Date Recorded Sex Assigned at Not on file Legal Sex Male 3:08 AM CUSTOMER OPERATIONS MANAGER Gender Identity Not on file Sexual Orientation Not on file documented as of this encounter Plan of Treatment Not on file documented as of this encounter Visit Diagnoses Diagnosis 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
--- OUTSIDE RECORDS SUMMARY | 2024-12-17 11:07 | XMS_ITS | Encounter Summary ---
Author Organization [facility] Address [address] [place] [address] Care Team Providers Care Guide Plant Name Role Phone Srinivasa Anderson MD Primary Care Provider [phone] Encounter Details Date Type Department Care Team (Latest Contact Info) Description 02/18/2001 Outpatient Historical 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
--- OUTSIDE RECORDS SUMMARY | 2024-12-17 11:07 | XMS_ITS | Encounter Summary ---
Author Organization [facility] Address [address] 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
--- OUTSIDE RECORDS SUMMARY | 2024-12-17 11:07 | XMS_ITS | Encounter Summary ---
Author Organization [facility] Address [address] [place] [address] Care Team Providers Care Fast Foods Worker Name Role Phone Srinivasa Anderson MD Primary Care Provider [phone] Encounter Details Date Type Department Care Team (Late st Contact Info) Description 10/21/2000 Outpatient Historical [facility] Yfn Hahn MD [address] [place], [place] [phone] Unspecified essential hypertension (Primary Dx); Other vitamin B12 deficiency anemia; Routine medical exam; Special screening for malignant neoplasm of prostate; Femoral vein phlebitis (CMS/HCC) Social History Tobacco Use Types Packs/Day Years Used Date Smoking Tobacco: Never Assessed Sex and Gender Information Value Date Recorded Sex Assigned at Not on file Legal Sex Male 3:08 AM CASUALTY CLAIMS SUPERVISOR Gender Identity Not on file Sexual [...] (superficial) documented in this encounter Care Teams Fast Foods Worker Relationship Specialty Start Date End Date Srinivasa Anderson MD [address] [address] PCP - General 07/18/04 documented as of this encounter
--- OUTSIDE RECORDS SUMMARY | 2024-12-17 11:07 | XMS_ITS | Encounter Summary ---
Author Organization [facility] Address [address] [place] [address] Care Team Providers Care Flight Line Service Attendant Name Role Phone Srinivasa Anderson MD Primary Care Provider [phone] Encounter Details Date Type Department Care Team (Latest Contact Info) Description 08/19/2001 Outpatient Historical [facility] Dermatology- [facility] [place] [address] [place] [address] Zoltan Mahoney MD NO ADDRESS ON FILE Malig amado scalp/skin neck (Primary Dx); SEBORRHEIC KERATOSIS NOS Social History Tobacco Use Types Packs/Day Years Used Date Smoking Tobacco: Never Assessed Sex and Gender Information Value Date Recorded Sex Assigned at Not on file Legal Sex Male 3:08 AM AUTOMATION CONSULTANT Gender Identity Not on file Sexual Orientation Not on file documented as of this encounter Plan of Treatment Not on file documented as of this encounter Visit Diagnoses Diagnosis Malig amado scalp/skin neck- Primary Unspecified malignant neoplasm of scalp and skin of neck Other seborrheic keratosis documented in this encounter Care Teams Flight Line Service Attendant Relationship Specialty Start Date End Date Srinivasa Anderson MD [address] [place] [address] PCP - General 07/18/04 documented as of this encounter
--- OUTSIDE RECORDS SUMMARY | 2024-12-17 11:07 | XMS_ITS | Encounter Summary ---
Author Organization [facility] Address [address] [place] [facility] [place] [address] Care Team Providers Care Conduit Worker Name Role Phone Srinivasa Anderson MD Primary Care Provider [phone] Encounter Details Date Type Department Care Team (Latest Contact Info) Description 06/28/2004 Outpatient Historical [facility] [address] [place] [address] Srinivasa Anderson MD [address] [place] [address] PULM EMBOLISM/INFARCT IATROGENIC (CMS/HCC) (Primary Dx); PERNICIOUS ANEMIA; Benign amado lg bowel; NOCTURIA Social History Tobacco Use Types Packs/Day Years Used Date Smoking Tobacco: Never Assessed Sex and Gender Information Value Date Recorded Sex Assigned at Not on file 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
--- OUTSIDE RECORDS SUMMARY | 2024-12-17 11:07 | XMS_ITS | Encounter Summary ---
Author Organization [facility] Address [address] [facility] [place] [address] Care Team Providers Care Economic Research Assistant Name Role Phone Srinivasa Anderson MD Primary Care Provider [phone] Encounter Details Date Type Department Care Team (Late st Contact Info) Description 02/17/2001 Outpatient [facility] [address] [place] [id number] Yfn Hahn MD [address] [place] [address] ACUTE BRONCHITIS (Primary Dx); THROMBOPHLEBITIS LEG NOS Social History Tobacco Use Types Packs/Day Years Used Date Smoking Tobacco: Never Assessed Sex and Gender Information Value Date Recorded Sex Assigned at Not on file 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
--- OUTSIDE RECORDS SUMMARY | 2024-12-17 11:07 | XMS_ITS | Encounter Summary ---
Author Organization [facility] Address [address] [facility] [place] [address] Care Team Providers Care Technical Services Librarian Name Role Phone Srinivasa Anderson MD Primary Care Provider [phone] Encounter Details Date Type Department Care Team (Late st Contact Info) Description 11/27/2000 Outpatient Historical [facility] Yfn Hahn MD [address] [place], [place] [id number] Other pulmonary embolism and infarction (CMS/HCC) (Primary Dx) Social History Tobacco Use Types Packs/Day Years Used Date Smoking Tobacco: Never Assessed Sex and Gender Information Value Date Recorded Sex Assigned at Not on file 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
--- OUTSIDE RECORDS SUMMARY | 2024-12-17 11:07 | XMS_ITS | Encounter Summary ---
Author Organization [facility] Address [address] [facility] [place] [address] Care Team Providers Care Practical Nursing Teacher Name Role Phone Srinivasa Anderson MD Primary Care Provider [phone] Encounter Details Date Type Department Care Team (Latest Contact Info) Description 08/04/2002 Outpatient Historical [facility] [place] [address] [place] [address] Mark Lux MD [address] [place] [address] JOINT PAIN-PELVIS (Primary Dx) Social History Tobacco Use Types Packs/Day Years Used Date Smoking Tobacco: Never Assessed Sex and Gender Information Value Date Recorded Sex Assigned at Not on file 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
[2024-12-17 11:26] VITALS: BP 137/69; PULSE 65; RESP 18; TEMP 36.8; O2SAT 98; BMI 20.7
[2024-12-17 12:19] LABS: Glucose Urine UA Negative (Normal); Nitrate Urine Negative (Negative); Specific Gravity, Urine 1.021 (1.005-1.030)
[2024-12-17 12:24] LABS: Add Urine Microscopic? YES
--- NOTE | 2024-12-17 12:37 | W.ED.ABDPA2 ---
HPI - Abdominal Pain General: Chief Complaint: Abdominal Pain Stated Complaint: L ab pain and lower back pain Time Seen by Provider: 12/17/24 12:37 History of Present Illness: 89-year-old man with a history of TAVR, chronic kidney disease, colon polyps, type 2 diabetes mellitus, atrial fibrillation and watchman placement, no longer on anticoagulation for this or for history of pulmonary embolism who presents the emergency room with left lower quadrant abdominal pain and some left flank pain. This has been going on for couple of weeks but has gotten worse. Was worse overnight but is improved some now. I do not elicit any pain response on exam. No fevers. No nausea or vomiting. No dysuria. No hematuria. Related Data Home Medications ?Medication ?Instructions ?Recorded ?Confirmed acetaminophen 325 mg tablet 325 mg PO QID PRN Pain 01/24/24 12/17/24 (Tylenol) fluticasone propionate 50 1 spray intranasal BID PRN 01/24/24 12/17/24 mcg/actuation nasal allergies spray,suspension (Flonase Allergy Relief) losartan 100 mg tablet 50 mg PO DAILY 01/24/24 12/17/24 prednisone 5 mg tablet 5 mg PO DAILY 01/24/24 12/17/24 tamsulosin 0.4 mg capsule 0.4 mg PO DAILY 01/24/24 12/17/24 trazodone 100 mg tablet 100 mg PO BEDTIME PRN sleep 01/24/24 12/17/24 amlodipine 10 mg tablet 10 mg PO DAILY 03/17/24 12/17/24 guaifenesin 600 mg tablet, 600 mg PO BID PRN Congestion 09/02/24 12/17/24 extended release 12 hr (Mucinex) aspirin 81 mg tablet,delayed 81 mg PO DAILY 12/09/24 12/17/24 release Previous Rx's ?Medication ?Instructions ?Recorded blood sugar diagnostic (Contour #[id number] ea 05/18/22 Next Test Strips) pregabalin 75 mg capsule 75 mg PO BID #60 caps 12/09/24 amoxicillin 875 mg-potassium 1 tab PO BID #14 tabs 12/14/24 clavulanate 125 mg tablet Allergies Allergy/AdvReac Type Severity Reaction Status Date / Time No Known Allergies Allergy Verified 12/17/24 07:38 Review of Systems Narrative: Constitutional symptoms: Negative except as documented in HPI. Skin symptoms: Negative except as documented in HPI. Eye symptoms: Negative except as documented in HPI. ENMT symptoms: Negative except as documented in HPI. Respiratory symptoms: Negative except as documented in HPI. Cardiovascular symptoms: Negative except as documented in HPI. Gastrointestinal symptoms: Negative except as documented in HPI. Genitourinary symptoms: Negative except as documented in HPI. Musculoskeletal symptoms: Negative except as documented in HPI. Neurologic symptoms: Negative except as documented in HPI. Psychiatric symptoms: Negative except as documented in HPI. Endocrine symptoms: Negative except as documented in HPI. PFSH ED PFSH: Medical History (Updated 12/17/24 @ 15:30 by Emilia Barnes MD) History of transcatheter aortic valve replacement (TAVR) History of colon polyps Impairment of balance Sleeplessness Left inguinal hernia Urinary hesitancy Nocturia more than twice per night Change in stool habits Abdominal discomfort Hx of basal cell carcinoma Allergic rhinitis Chronic neck pain Type 2 diabetes mellitus Diet managed Chronic anticoagulation INR goal 2-3 Hx pulmonary embolism Hypertension Surgical History History of inguinal hernia repair History of mitral valve repair History of colonoscopy History of esophagogastroduodenoscopy Hx of cataract surgery Family History Other CAD (coronary artery disease) Cancer Diabetes Heart attack Hyperlipidemia Hypertension Rheumatoid arthritis Stroke Denies family history of Lupus Chronic kidney disease (CKD) Social History Smoking and tobacco/nicotine status: former use of tobacco/nicotine Quit status (tobacco/nicotine): has quit using Former quit date comment: over 40 years ago Alcohol intake: current Alcohol intake frequency: few times a week Substance/Drug Use: never Physical Exam Narrative: EXAM NARRATIVE: General: Alert, no acute distress. Skin: Warm, dry. Head: Normocephalic, atraumatic. Neck: Supple, trachea midline. Eye: Extraocular movements are intact. Ears, nose, mouth and throat: mucosa moist. Cardiovascular: Regular, Normal peripheral perfusion. Respiratory: Lungs are clear to auscultation, respirations are non-labored, breath sounds are equal, Symmetrical chest wall expansion. Gastrointestinal: Soft, Nontender, Non distended Musculoskeletal: Normal ROM, no deformity. Neurological: Alert and oriented, No focal neurological deficit observed. Psychiatric: Cooperative, appropriate mood & affect. Course Vital Signs: Vital signs: Vital Signs Temperature 98.2 F 12/17/24 11:26 Pulse Rate 60 12/17/24 15:46 Respiratory Rate 18 12/17/24 11:26 Blood Pressure 145/67 12/17/24 15:46 Pulse Oximetry 98 12/17/24 15:46 Oxygen Delivery Me thod Room Air 12/17/24 13:04 MDM - Abdominal Pain Medical Decision Making Medical decision making: Differential diagnosis for a patient who presents with left lower quadrant abdominal pain including but not limited to and based on the above HPI, review of systems and physical exam: Diverticulitis. Constipation Ureterolithiasis. Urinary tract infection. colitis. small bowel obstruction. Crohn's flare. Orders placed to evaluate differential diagnosis based on the above differential, HPI and physical exam Lab Review: Laboratory results were reviewed and interpreted by myself the emergency room physician. No leukocytosis. No anemia. BUN and creatinine are at or below his baseline at 28 and 1.1. He has a little bit of chronic kidney disease. Urinalysis is negative for infection CT of the abdomen pelvis with contrast: Multiple chronic findings. Diverticulosis without diverticulitis. Prostate is concerning for prostate cancer. I discussed this with the patient. He will follow-up with urology. This was reviewed and interpreted by myself the emergency room physician. I also reviewed the radiology report. I reviewed the patient's medical record. 89-year-old man with a history of TAVR, chronic kidney disease, colon polyps, type 2 diabetes mellitus, atrial fibrillation and watchman placement, no longer on anticoagulation for this or for history of pulmonary embolism Reexamination: Patient remained stable. No increased work of breathing. No altered mental status. No focal motor deficits. Patient has not had any abdominal pain while he is been here. We discussed this again and it seems like there is a good possibility he passed a kidney stone a couple of days ago. He was not having the pain today but finally decided to come in and get it checked out. We discussed at length the findings on the CT scan and that he needed to go see urology. Assessment and plan: Abdominal pain Enlarged prostate - Discharged home - Discussed plan with patient. Answered any questions. - Evaluation and treatment of this problem were appropriate in the emergency setting. Lab Data 12/17/24 12:43 12/17/24 12:43 Labs/Radiology: Radiology Impressions Abdomen/Pelvis CT 12/17/24 13:23 IMPRESSION: 1. Extensive sigmoid diverticulosis but no evidence of acute diverticulitis. Diverticuli throughout the colon. 2. Markedly enlarged heterogeneously enhancing prostate suspicious for neoplasia. Recommend correlation PSA. 3. Heterogeneous coarse liver enhancement similar to the prior study is nonspecific. Recommend correlation with liver function tests. 4. Stable 4.1 cm LEFT hepatic cyst. 5. Tiny gallstone in the gallbladder. 6. Small esophageal hiatal hernia. 7. Tiny fat-containing umbilical hernia. A loop of small bowel abuts this area but does not appear entrapped. 8. Fat-containing LEFT inguinal hernia with a small amount of fluid unchanged from previous. 9. Interstitial edema with fibrotic changes in the RIGHT lower lobe similar but slightly progressed compared prior studies. 10. 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 Laboratory Results WBC 6.55 10^3/uL (3.29-11.43) 12/17/24 12:43 RBC 3.75 10^6/uL (3.85-5.65) L 12/17/24 12:43 Hgb 10.30 g/dL (11.27-16.99) L 12/17/24 12:43 Hct 32.0 % (37-53) L 12/17/24 12:43 MCV 85.3 fl (82-101) 12/17/24 12:43 MCH 27.5 pg (27-33) 12/17/24 12:43 MCHC 32.2 g/dL (30-55) 12/17/24 12:43 RDW 16.2 % (12.1-15.1) H 12/17/24 12:43 Plt Count 216 10^3/cmm (157-399) 12/17/24 12:43 MPV 10.5 fL (7.4-10.4) H 12/17/24 12:43 Neut % (Auto) 80.1 % 12/17/24 12:43 Lymph % (Auto) 11.6 % 12/17/24 12:43 [place] % (Auto) 6.6 % 12/17/24 12:43 Eos % (Auto) 0.0 % 12/17/24 12:43 Baso % (Auto) 0.3 % 12/17/24 12:43 Neut # (Auto) 5.25 10^3/uL (1.8-7.7) 12/17/24 12:43 Lymph # (Auto) 0.8 10^3/uL (0.8-4.8) 12/17/24 12:43 [place] # (Auto) 0.4 10^3/uL (0.2-0.9) 12/17/24 12:43 Eos # (Auto) 0.0 10^3/uL (0.0-0.8) 12/17/24 12:43 Baso # (Auto) 0.0 10^3/uL (0.0-0.1) 12/17/24 12:43 Nucleated RBC % (auto) 0 % 12/17/24 12:43 Nucleated RBCs # 0.0 /100WBC 12/17/24 12:43 Sodium 134 mmol/L (136-145) L 12/17/24 12:43 Potassium 4.3 mmol/L (3.5-5.1) 12/17/24 12:43 Chloride 102 mmol/L (98-107) 12/17/24 12:43 Carbon Dioxide 20 mmol/L (22-29) L 12/17/24 12:43 Anion Gap 16.3 (5-19) 12/17/24 12:43 BUN 28 mg/dL (8-23) H 12/17/24 12:43 Creatinine 1.1 mg/dL (0.7-1.2) 12/17/24 12:43 GFR Calculation Not Reportable 12/17/24 12:43 Glucose 140 mg/dL (65-115) H 12/17/24 12:43 Calculated Osmolality 286 mOsm/kg (285-295) 12/17/24 12:43 Lactic Acid 0.9 mmol/L (0.5-2.2) 12/17/24 12:43 Calcium 9.0 mg/dL (8.5-10.5) 12/17/24 12:43 Total Bilirubin 0.7 mg/dL (0.15-1.2) 12/17/24 12:43 AST 25 U/L (0-40) 12/17/24 12:43 ALT 19 U/L (0-41) 12/17/24 12:43 Alkaline Phosphatase 106 U/L (40-130) 12/17/24 12:43 C-Reactive Protein 3.0 mg/L (0.0-4.9) 12/17/24 12:43 Total Protein 9.3 g/dL (6.6-8.7) H 12/17/24 12:43 Albumin 3.7 g/dL (3.5-5.2) 12/17/24 12:43 Globulin 5.6 g/dL (1.3-4.6) H 12/17/24 12:43 Lipase 40 U/L (13-60) 12/17/24 12:43 Urine Color Yellow (Yellow) 12/17/24 12:10 Urine Appearance Clear (CLEAR) 12/17/24 12:10 Urine pH 6.0 (5-7) 12/17/24 12:10 Ur Specific [place] 1.021 (1.005-1.030) 12/17/24 12:10 Urine Protein Trace (Negative) A 12/17/24 12:10 Urine Glucose (UA) Negative (Normal) 12/17/24 12:10 Urine Ketones Trace (Negative) 12/17/24 12:10 Urine Blood Negative (Negative) 12/17/24 12:10 Urine Nitrate Negative (Negative) 12/17/24 12:10 Urine Bilirubin Negative (Negative) 12/17/24 12:10 Urine Urobilinogen 1.0 mg/dL (Negative) 12/17/24 12:10 Ur Leukocyte Esterase Negative (Negative) 12/17/24 12:10 Urine RBC 0-2 /hpf (0-2) 12/17/24 12:10 Urine WBC 0-5 /hpf (0-5) 12/17/24 12:10 Ur Squamous Epith Cells 0-5 /hpf (0-5) 12/17/24 12:10 Amorphous Sediment Not Reportable 12/17/24 12:10 Urine Bacteria None seen /hpf (NONE) 12/17/24 12:10 Hyaline Casts 0-4 /lpf H 12/17/24 12:10 All radiology interpretation(s) finalized by discharge Discharge Plan Discharge Patient Disposition: Home Clinical Impression: Abdominal pain, Diverticulosis Condition: Stable Prescriptions: No Action amoxicillin-pot clavulanate 875-125 mg tablet 1 tab PO BID Qty: 14 0RF (DME) Contour Next Test Strips Strip See Rx Instructions .Route Qty: 50 11RF Rx Instructions: use to test blood sugar once daily prednisone 5 mg tablet 5 mg PO DAILY tamsulosin 0.4 mg capsule 0.4 mg PO DAILY trazodone 100 mg tablet 100 mg PO BEDTIME PRN (Reason: sleep ) losartan 100 mg tablet 50 mg PO DAILY fluticasone propionate [Flonase Allergy Relief] 50 mcg/actuation spray,suspension 1 spray intranasal BID PRN (Reason: allergies) Rx Instructions: administer into each nostril acetaminophen [Tylenol] 325 mg Tablet 325 mg PO QID PRN (Reason: Pain) aspirin [Aspir-81] 81 mg Tablet,Delayed Release (Dr/Ec) 81 mg PO DAILY pregabalin 75 mg capsule 75 mg PO BID Qty: 60 0RF amlodipine 10 mg tablet 10 mg PO DAILY guaifenesin [Mucinex] 600 mg Tablet Extended Release 12hr 600 mg PO BID PRN (Reason: Congestion) Discharge Orders: Discharge ED (Routine); Ordered 12/17/24 Ordered By: Emilia Barnes Referrals: Srinivasa Anderson MD [Primary Care Provider, Family Practice] Hu Solano MD [Referring, Urology] Referral Note: Please call for an appointment with Dr. Houser or the urologist of your choosing. Discharge Diet: Usual diet Discharge Activity: Increase activity as tolerated Patient Instructions: Abdominal Pain (ED), Opioid Safety, Pain Management, Patient Portal & Jenna Instructions Activity Restrictions/Additional Instructions: Your CT scan had several chronic findings but of concern was the size and appearance of your prostate. This needs to be evaluated by a urologist fairly soon. Preferably within the next couple of weeks. Please call urology at [place] or [place] or wherever you feel comfortable going Thank you for choosing [facility] for your healthcare needs today. You have been screened and evaluated and felt safe for discharge. Health conditions do change or evolve sometimes and as such it is important that you follow up with your Primary Doctor to be re checked, 3-5 days is a general good time frame for follow up. You are always welcome to return to the ED for re assessment if your symptoms are worsening or you have new concerns Print Language: [place] Coding Level of Care Code ED Manager Technical Training for Steffany Redmond
[2024-12-17 12:46] VITALS: BP 161/71; O2SAT 99
[2024-12-17 12:59] LABS: Hematocrit 32.0 % (37-53); Hemoglobin 10.30 g/dL (11.27-16.99); Mean Corpuscular HGB Conc 32.2 g/dL (30-55); Mean Corpuscular Hemoglobin 27.5 pg (27-33); Mean Corpuscular Volume 85.3 fl (82-101); Nucleated Red Blood Cells % 0 %; Platelet Count 216 10^3/cmm (157-399); Red Blood Count 3.75 10^6/uL (3.85-5.65); White Blood Count 6.55 10^3/uL (3.29-11.43)
[2024-12-17 13:04] VITALS: BP 161/71; O2SAT 99
[2024-12-17 13:19] LABS: Alanine Aminotransferase 19 U/L (0-41); Albumin Level 3.7 g/dL (3.5-5.2); Alkaline Phosphatase 106 U/L (40-130); Anion Gap 16.3 (5-19); Aspartate Amino Transferase 25 U/L (0-40); Blood Urea Nitrogen 28 mg/dL (8-23); Calcium 9.0 mg/dL (8.5-10.5); Carbon Dioxide 20 mmol/L (22-29); Chloride 102 mmol/L (98-107); Creatinine Clr Calc Pharmacy 55.4923; Globulin 5.6 g/dL (1.3-4.6); Glucose 140 mg/dL (65-115); Lipase 40 U/L (13-60); Osmolality Calculated 286 mOsm/kg (285-295); Potassium 4.3 mmol/L (3.5-5.1); Sodium 134 mmol/L (136-145); Total Protein 9.3 g/dL (6.6-8.7)
[2024-12-17 13:22] LABS: Lactic Sepsis W/Reflex 0.9 mmol/L (0.5-2.2)
--- NOTE | 2024-12-17 13:23 | CT_ITS ---
WS: [id number] CT ABDOMEN PELVIS TECHNIQUE: Contrast-enhanced CT of the abdomen and pelvis with coronal and sagittal reformatted images. CLINICAL INFORMATION: Abdominal pain COMPARISON: 2023 DLP: 565.[address] scans at [facility] use at least one of these dose optimization techniques: automated exposure control; mA and/or kV adjustment per patient size (includes targeted exams where dose is matched to clinical indication); or iterative reconstruction. FINDINGS: Extensive sigmoid diverticulosis. No evidence of acute diverticulitis. Diverticuli throughout the colon. Normal appendix. Cardiomegaly. Interstitial thickening in the RIGHT greater than LEFT lower lobes with fibrotic changes. Interstitial edema RIGHT lower lobe. Aortic valve prosthesis. Coronary calcification. 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 Diffuse heterogeneous liver enhancement similar to the prior study is nonspecific. Recommend correlation with liver function tests. Stable large LEFT hepatic cyst measuring 4.1 cm. Tiny gallstone. Small esophageal hiatal hernia. Adrenal glands are normal. Normal renal parenchymal enhancement. Mild bilateral renal cortical atrophy. Stable RIGHT renal cyst. Normal pancreatic parenchymal enhancement. Celiac and SMA are patent. Dense vascular calcification. Slightly ectatic distal abdominal aorta me asuring 2.3-2.5 cm in maximum dimension. Fat-containing LEFT inguinal hernia with a small amount of fluid along the proximal inguinal hernia unchanged since 2023. No herniated bowel. Markedly enlarged prostate with heterogeneous enhancement measuring 5.[address]/CT abdomen pelvis w con* [id number] IMPRESSION: 1. Extensive sigmoid diverticulosis but no evidence of acute diverticulitis. D iverticuli throughout the colon. 2. Markedly enlarged heterogeneously enhancing prostate suspicious for neoplas ia. Recommend correlation PSA. 3. Heterogeneous coarse liver enhancement similar to the prior study is nonspe cific. Recommend correlation with liver function tests. 4. Stable 4.1 cm LEFT hepatic cyst. 5. Tiny gallstone in the gallbladder. 6. Small esophageal hiatal hernia. 7. Tiny fat-containing umbilical hernia. A loop of small bowel abuts this area but does not appear entrapped. 8. Fat-containing LEFT inguinal hernia with a small amount of fluid unchanged from previous. 9. Interstitial edema with fibrotic changes in the RIGHT lower lobe similar bu t slightly progressed compared prior studies. 10. 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
--- NOTE | 2024-12-17 13:50 | PC.NURSE ---
This nurse went to start NS bolus and noticed IV was placed in artery. This nurse removed IV and started a new one
[2024-12-17 14:00] VITALS: BP 143/67; PULSE 60; O2SAT 97
[2024-12-17] MEDS: iohexol 350 mg/mL 500 mL Btl (per mL) IV (14:09)
[2024-12-17 15:46] VITALS: BP 145/67; PULSE 60; O2SAT 98
== END 2024-12-17 15:46 | disposition home or self-care (01) ==
PROVIDERS: Family Medicine; Emergency Provider Emergency Medicine; PCP Family Medicine
DX: K80.20 Calculus of gallbladder without cholecystitis without obstruction (principal); K76.89 Other specified diseases of liver; M47.897 Other spondylosis, lumbosacral region; K44.9 Diaphragmatic hernia without obstruction or gangrene; K42.9 Umbilical hernia without obstruction or gangrene; K40.90 Unilateral inguinal hernia, without obstruction or gangrene, not specified as recurrent; K57.30 Diverticulosis of large intestine without perforation or abscess without bleeding; N40.0 Benign prostatic hyperplasia without lower urinary tract symptoms; L03.115 Cellulitis of right lower limb; I73.9 Peripheral vascular disease, unspecified; R10.9 Unspecified abdominal pain; Z79.82 Long term (current) use of aspirin; Z87.891 Personal history of nicotine dependence; E11.9 Type 2 diabetes mellitus without complications; I10 Essential (primary) hypertension; Z85.828 Personal history of other malignant neoplasm of skin
CPT/HCPCS: 74177; 80053; 81001; 83605; 83690; 85025; 86140; 96360; 96361; 99213; 99285; J7030

== ENCOUNTER → 2025-01-21 13:09 | Outpatient (BNVA) | payer MEDICARE, SELFPAY | PROVIDERS: PCP Family Medicine; Visit Provider Nurse Practitioner Family | DX: L30.9 Dermatitis, unspecified (principal) | CPT/HCPCS: 11104; 99214 ==

== ENCOUNTER 2025-02-01 11:41 | Outpatient (CLI) | payer MEDICARE, SELFPAY ==
[2025-02-01 16:21] LABS: Hematocrit 31.2 % (37-53); Hemoglobin 9.90 g/dL (11.27-16.99); Mean Corpuscular HGB Conc 31.7 g/dL (30-55); Mean Corpuscular Hemoglobin 28.0 pg (27-33); Mean Corpuscular Volume 88.4 fl (82-101); Nucleated Red Blood Cells % 0 %; Platelet Count 155 10^3/cmm (157-399); Red Blood Count 3.53 10^6/uL (3.85-5.65); White Blood Count 5.37 10^3/uL (3.29-11.43)
[2025-02-01 17:46] LABS: Alanine Aminotransferase 23 U/L (0-41); Albumin Level 3.6 g/dL (3.5-5.2); Alkaline Phosphatase 101 U/L (40-130); Anion Gap 15.9 (5-19); Aspartate Amino Transferase 21 U/L (0-40); Blood Urea Nitrogen 23 mg/dL (8-23); Calcium 8.4 mg/dL (8.5-10.5); Carbon Dioxide 25 mmol/L (22-29); Chloride 107 mmol/L (98-107); Globulin 3.9 g/dL (1.3-4.6); Glucose 109 mg/dL (65-115); Osmolality Calculated 302 mOsm/kg (285-295); Potassium 3.9 mmol/L (3.5-5.1); Sodium 144 mmol/L (136-145); Thyroid Stimulating Hormone 2.54 uIU/mL (0.27-4.20); Total Protein 7.5 g/dL (6.6-8.7)
[2025-02-01 22:01] LABS: Free T4 Free Thyroxine 1.25 ng/dL (0.82-1.77)
== END 2025-02-01 11:42 | disposition home or self-care (01) ==
PROVIDERS: PCP Family Medicine; Visit Provider Nurse Practitioner Family
DX: L30.8 Other specified dermatitis (principal); R53.83 Other fatigue; L29.89 Other pruritus; L57.0 Actinic keratosis
CPT/HCPCS: 36415; 80048; 80076; 84439; 84443; 85025; 99214

== ENCOUNTER 2025-02-05 11:47 | Outpatient (CLI) | payer MEDICARE, SELFPAY ==
[2025-02-05 12:22] LABS: Hematocrit 30.8 % (37-53); Hemoglobin 9.80 g/dL (11.27-16.99); Mean Corpuscular HGB Conc 31.8 g/dL (30-55); Mean Corpuscular Hemoglobin 27.9 pg (27-33); Mean Corpuscular Volume 87.7 fl (82-101); Nucleated Red Blood Cells % 0 %; Platelet Count 163 10^3/cmm (157-399); Red Blood Count 3.51 10^6/uL (3.85-5.65); White Blood Count 5.08 10^3/uL (3.29-11.43)
[2025-02-05 12:44] LABS: Calcium 8.6 mg/dL (8.5-10.5)
[2025-02-05 12:45] LABS: Alanine Aminotransferase 29 U/L (0-41); Albumin Level 3.8 g/dL (3.5-5.2); Alkaline Phosphatase 128 U/L (40-130); Anion Gap 17.1 (5-19); Aspartate Amino Transferase 27 U/L (0-40); Blood Urea Nitrogen 34 mg/dL (8-23); Calcium 8.6 mg/dL (8.5-10.5); Carbon Dioxide 21 mmol/L (22-29); Chloride 105 mmol/L (98-107); Ferritin 432 ng/mL (30-400); Globulin 4.3 g/dL (1.3-4.6); Glucose 113 mg/dL (65-115); Iron 64 ug/dL (59-158); Osmolality Calculated 296 mOsm/kg (285-295); Potassium 4.1 mmol/L (3.5-5.1); Sodium 139 mmol/L (136-145); Total Iron Binding Capacity 271 mcg/dl; Total Protein 8.1 g/dL (6.6-8.7); Unsaturated Iron Binding 207 ug/dL (112-347)
== END 2025-02-05 11:48 | disposition home or self-care (01) ==
LOC: LAB 11:49
PROVIDERS: PCP Family Medicine; Visit Provider Internal Medicine
DX: R79.89 Other specified abnormal findings of blood chemistry (principal)
CPT/HCPCS: 36415; 80053; 82310; 82728; 83540; 83550; 83970; 85025

== ENCOUNTER 2025-02-11 09:02 | Outpatient (CLI) | payer MEDICARE, SELFPAY ==
[2025-02-11 09:40] LABS: Hematocrit 34.6 % (37-53); Hemoglobin 11.00 g/dL (11.27-16.99); Mean Corpuscular HGB Conc 31.8 g/dL (30-55); Mean Corpuscular Hemoglobin 27.8 pg (27-33); Mean Corpuscular Volume 87.6 fl (82-101); Nucleated Red Blood Cells % 0 %; Platelet Count 183 10^3/cmm (157-399); Red Blood Count 3.95 10^6/uL (3.85-5.65); White Blood Count 7.65 10^3/uL (3.29-11.43)
[2025-02-11 10:00] LABS: Alanine Aminotransferase 35 U/L (0-41); Albumin Level 3.8 g/dL (3.5-5.2); Alkaline Phosphatase 116 U/L (40-130); Anion Gap 17.0 (5-19); Aspartate Amino Transferase 26 U/L (0-40); Blood Urea Nitrogen 56 mg/dL (8-23); Calcium 9.0 mg/dL (8.5-10.5); Carbon Dioxide 26 mmol/L (22-29); Chloride 103 mmol/L (98-107); Ferritin 446 ng/mL (30-400); Globulin 4.1 g/dL (1.3-4.6); Glucose 138 mg/dL (65-115); Iron 68 ug/dL (59-158); Osmolality Calculated 312 mOsm/kg (285-295); Potassium 4.0 mmol/L (3.5-5.1); Sodium 142 mmol/L (136-145); Total Iron Binding Capacity 264 mcg/dl; Total Protein 7.9 g/dL (6.6-8.7); Unsaturated Iron Binding 196 ug/dL (112-347)
== END 2025-02-11 09:03 | disposition home or self-care (01) ==
LOC: LAB 09:03
PROVIDERS: PCP Family Medicine; Visit Provider Family Medicine
DX: D64.9 Anemia, unspecified (principal)
CPT/HCPCS: 36415; 80053; 82310; 82330; 82728; 83540; 83550; 83970; 85025

== ENCOUNTER 2025-02-12 13:13 | Emergency (ER) | payer MEDICARE, SELFPAY ==
[2025-02-12 13:24] VITALS: BP 118/55; PULSE 67; RESP 16; TEMP 36.6; O2SAT 100; BMI 21.2
--- OUTSIDE RECORDS SUMMARY | 2025-02-12 13:24 | XMS_ITS | Encounter Summary ---
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
--- OUTSIDE RECORDS SUMMARY | 2025-02-12 13:24 | XMS_ITS | Encounter Summary ---
Author Organization [facility] Address [address] [facility] [place] [address] Care Team Providers Care Liner Reroll Tender Name Role Phone Srinivasa Anderson MD Primary Care Provider [phone] Encounter Details Date Type Department Care Team (Latest Contact Info) Description 09/26/2006 Outpatient Historical [facility] [place] [place] [address] Srinivasa Anderson MD [address] [place] [address] Other Testicular Hypofunction (Primary Dx) Social History Tobacco Use Types Packs/Day Years Used Date Smoking Tobacco: Never Assessed Sex and Gender Information Value Date Recorded Sex Assigned at Not on file 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
--- OUTSIDE RECORDS SUMMARY | 2025-02-12 13:24 | XMS_ITS | Encounter Summary ---
Author Organization [facility] Address [address] [place] [address] Care Team Providers Care Stone Carver Name Role Phone Srinivasa Anderson MD Primary Care Provider [phone] Encounter Details Date Type Department Care Team (Latest Contact Info) Description 05/15/2006 Outpatient Historical [facility] [place] [place] [address] Srinivasa Anderson MD [address] [place] [address] Other Testicular Hypofunction (Primary Dx) Social History Tobacco Use Types Packs/Day Years Used Date Smoking Tobacco: Never Assessed Sex and Gender Information Value Date Recorded Sex Assigned at Not on file 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
--- OUTSIDE RECORDS SUMMARY | 2025-02-12 13:24 | XMS_ITS | Encounter Summary ---
Author Organization [facility] Address [address] [place] [address] Care Team Providers Care Psychiatric Arnp Name Role Phone Srinivasa Anderson MD Primary Care Provider [phone] Encounter Details Date Type Department Care Team (Latest Contact Info) Description 04/02/2006 Outpatient Historical [facility] [address] [place] [address] Srinivasa Anderson MD [address] [address] DM w/o Complication Type I, Uncontrolled (Primary Dx) Social History Tobacco Use Types Packs/Day Years Used Date Smoking Tobacco: Never Assessed Sex and Gender Information Value Date Recorded Sex Assigned at Not on file 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 [address] [place] [address] PCP - General 07/18/04 documented as of this encounter
--- OUTSIDE RECORDS SUMMARY | 2025-02-12 13:24 | XMS_ITS | Encounter Summary ---
Author Organization [facility] Address [address] [place] [address] Care Team Providers Care Agronomy Instructor Name Role Phone Srinivasa Anderson MD Primary Care Provider [phone] Encounter Details Date Type Department Care Team (Latest Contact Info) Description 03/26/2006 Outpatient [facility] [place] [address] [place] [address] Srinivasa Anderson MD [address] [place] [address] Other Testicular Hypofunction (Primary Dx); Vaccine for influenza; Lumbago Social History Tobacco Use Types Packs/Day Years Used Date Smoking Tobacco: Never Assessed Sex and Gender Information Value Date Recorded Sex Assigned at Not on file 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
--- OUTSIDE RECORDS SUMMARY | 2025-02-12 13:24 | XMS_ITS | Encounter Summary ---
Author Organization [facility] Address [address] [place] [address] Care Team Providers Care Master Coastal Waters Name Role Phone Srinivasa Anderson MD Primary Care Provider Encounter Details Date Type Department Care Team (Latest Contact Info) Description 04/11/2006 Outpatient Historical [facility] [place] [address] [place] [address] Zoltan Mahoney MD NO ADDRESS ON FILE Malig John Skin Ear (Primary Dx); Actinic Keratosis; Other Seborrheic Keratosis Social History Tobacco Use Types Packs/Day Years Used Date Smoking Tobacco: Never Assessed Sex and Gender Information Value Date Recorded Sex Assigned at Not on file 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
--- OUTSIDE RECORDS SUMMARY | 2025-02-12 13:24 | XMS_ITS | Encounter Summary ---
Author Organization [facility] Address [address] [place] [address] Care Team Providers Care Steam Fitter Helper Name Role Phone Srinivasa Anderson MD Primary Care Provider [phone] Encounter Details Date Type Department Care Team (Latest Contact Info) Description 04/19/2006 Outpatient Historical [facility] [place] [place] [address] Srinivasa Anderson MD [address] [place] [address] Other Testicular Hypofunction (Primary Dx) Social History Tobacco Use Types Packs/Day Years Used Date Smoking Tobacco: Never Assessed Sex and Gender Information Value Date Recorded Sex Assigned at Not on file 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
--- OUTSIDE RECORDS SUMMARY | 2025-02-12 13:24 | XMS_ITS | Encounter Summary ---
Author Organization [facility] Address [address] [facility] [place] [address] Care Team Providers Care Garbage Stoker Name Role Phone Srinivasa Anderson MD Primary Care Provider [phone] Encounter Details Date Type Department Care Team (Latest Contact Info) Description 07/25/2006 Outpatient Historical [facility] [place] [place] [address] Srinivasa Anderson MD [address] [place] [address] Other Abnormal Blood Chemistry (Primary Dx); Osteoarth NOS-Unspec; 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 Social History Tobacco Use Types Packs/Day Years Used Date Smoking Tobacco: Never Assessed Sex and Gender Information Value Date Recorded Sex Assigned at Not on file 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
--- OUTSIDE RECORDS SUMMARY | 2025-02-12 13:24 | XMS_ITS | Encounter Summary ---
Author Organization [facility] Address [address] [place] [facility] [place] [address] Care Team Providers Care Recovery Room Nurse Name Role Phone Srinivasa Anderson MD Primary Care Provider [phone] Encounter Details Date Type Department Care Team (Latest Contact Info) Description 01/16/2007 Outpatient Historical [facility] [place] [place] [address] Srinivasa Anderson MD [address] [place] [address] Other Abnormal Blood Chemistry (Primary Dx); Iatrogenic Pulmonary Embolism and Infarction (CMS/HCC); Other and Unspecified Hyperlipidemia; Other Testicular Hypofunction Social History Tobacco Use Types Packs/Day Years Used Date Smoking Tobacco: Never Assessed Sex and Gender Information Value Date Recorded Sex Assigned at Not on file 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 Gender Identity Not on file Sexual Orientation Not on file documented as of this encounter Plan of Treatment Not on file documented as of this encounter Visit Diagnoses Diagnosis Other abnormal blood chemistry- Primary Iatrogenic pulmonary embolism and infarction (CMS/HCC) Iatrogenic pulmonary embolism and infarction Other and unspecified hyperlipidemia Other testicular hypofunction documented in this encounter Care Teams Recovery Room Nurse Relationship Specialty Start Date End Date Srinivasa Anderson MD [address] [place] [address] PCP - General 07/18/04 documented as of this encounter
--- OUTSIDE RECORDS SUMMARY | 2025-02-12 13:24 | XMS_ITS | Encounter Summary ---
Author Organization [facility] Address [address] [place] [address] Care Team Providers Care Nanoscience Technician Name Role Phone Srinivasa Anderson MD Primary Care Provider [phone] Encounter Details Date Type Department Care Team (Late st Contact Info) Description 06/03/2006 Outpatient Historical 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
--- OUTSIDE RECORDS SUMMARY | 2025-02-12 13:24 | XMS_ITS | Encounter Summary ---
Author Organization [facility] Address [address] [facility] [place] [address] Care Team Providers Care Internet Consultant Name Role Phone Srinivasa Anderson MD Primary Care Provider [phone] Encounter Details Date Type Department Care Team (Latest Contact Info) Description 11/21/2006 Outpatient Historical [facility] [place] [place] [address] Srinivasa Anderson MD [address] [place] [address] Other Testicular Hypofunction (Primary Dx) Social History Tobacco Use Types Packs/Day Years Used Date Smoking Tobacco: Never Assessed Sex and Gender Information Value Date Recorded Sex Assigned at Not on file 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
--- OUTSIDE RECORDS SUMMARY | 2025-02-12 13:24 | XMS_ITS | Encounter Summary ---
Author Organization [facility] Address [address] [place] [address] Care Team Providers Care Braker Passenger Train Name Role Phone Srinivasa Anderson MD Primary Care Provider [phone] Encounter Details Date Type Department Care Team (Latest Contact Info) Description 06/19/2006 Outpatient Historical [facility] [place] [place] [address] Srinivasa Anderson MD [address] [place] [address] Other Testicular Hypofunction (Primary Dx) Social History Tobacco Use Types Packs/Day Years Used Date Smoking Tobacco: Never Assessed Sex and Gender Information Value Date Recorded Sex Assigned at Not on file 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
--- OUTSIDE RECORDS SUMMARY | 2025-02-12 13:24 | XMS_ITS | Encounter Summary ---
Author Organization [facility] Address [address] [place] [address] Care Team Providers Care Senior Construction Project Manager Name Role Phone Srinivasa Anderson MD Primary Care Provider [phone] Encounter Details Date Type Department Care Team (Late st Contact Info) Description 05/03/2006 Outpatient Historical [facility] [address] [place] [address] Srinivasa Anderson MD [address] [phone] Social History Tobacco Use Types Packs/Day Years Used Date Smoking Tobacco: Never Assessed Sex and Gender Information Value Date Recorded Sex Assigned at Not on file 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
--- OUTSIDE RECORDS SUMMARY | 2025-02-12 13:24 | XMS_ITS | Encounter Summary ---
Author Organization [facility] Address [address] [place] [address] Care Team Providers Care Farm Labor Contractor Name Role Phone Srinivasa Anderson MD Primary Care Provider [phone] Encounter Details Date Type Department Care Team (Latest Contact Info) Description 12/21/2005 Outpatient Historical [facility] [place] [place] [address] Srinivasa Anderson MD [address] [place] [address] Other Malaise and Fatigue (Primary Dx); Other Testicular Hypofunction; Depressive Disorder, not Elsewhere Classified Social History Tobacco Use Types Packs/Day Years Used Date Smoking Tobacco: Never Assessed Sex and Gender Information Value Date Recorded Sex Assigned at Not on file 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
--- OUTSIDE RECORDS SUMMARY | 2025-02-12 13:24 | XMS_ITS | Encounter Summary ---
Author Organization [facility] Address [address] [facility] [place] [address] Care Team Providers Care Manager Night Name Role Phone Srinivasa Anderson MD Primary Care Provider [phone] Encounter Details Date Type Department Care Team (Latest Contact Info) Description 04/11/2006 Outpatient Historical [facility] [place] [place] [address] Srinivasa Anderson MD [address] [place] [address] DM w/o Complication Type II (CMS/HCC) (Primary Dx); Depressive Disorder, not Elsewhere Classified Social History Tobacco Use Types Packs/Day Years Used Date Smoking Tobacco: Never Assessed Sex and Gender Information Value Date Recorded Sex Assigned at Not on file 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
--- OUTSIDE RECORDS SUMMARY | 2025-02-12 13:24 | XMS_ITS | Encounter Summary ---
Author Organization [facility] Address [address] [facility] [place] [address] Care Team Providers Care Tax Revenue Officer Name Role Phone Srinivasa Anderson MD Primary Care Provider [phone] Encounter Details Date Type Department Care Team (Latest Contact Info) Description 08/15/2006 Outpatient Historical [facility] [place] [place] [address] Srinivasa Anderson MD [address] [place] [address] Other Testicular Hypofunction (Primary Dx) Social History Tobacco Use Types Packs/Day Years Used Date Smoking Tobacco: Never Assessed Sex and Gender Information Value Date Recorded Sex Assigned at Not on file 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
--- OUTSIDE RECORDS SUMMARY | 2025-02-12 13:24 | XMS_ITS | Encounter Summary ---
Author Organization [facility] Address [address] [facility] [place] [address] Care Team Providers Care Track Announcer Name Role Phone Srinivasa Anderson MD Primary Care Provider [phone] Encounter Details Date Type Department Care Team (Latest Contact Info) Description 01/18/2006 Outpatient Historical [facility] [place] [place] [address] Srinivasa Anderson MD [address] [place] [address] Other Testicular Hypofunction (Primary Dx) Social History Tobacco Use Types Packs/Day Years Used Date Smoking Tobacco: Never Assessed Sex and Gender Information Value Date Recorded Sex Assigned at Not on file 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
--- OUTSIDE RECORDS SUMMARY | 2025-02-12 13:24 | XMS_ITS | Encounter Summary ---
Author Organization [facility] Address [address] [place] [address] Care Team Providers Care Escort Patients Name Role Phone Srinivasa Anderson MD Primary Care Provider [phone] Encounter Details Date Type Department Care Team (Latest Contact Info) Description 12/19/2006 Outpatient Historical [facility] [place] [place] [address] Srinivasa Anderson MD [address] [place] [address] Other Testicular Hypofunction (Primary Dx) Social History Tobacco Use Types Packs/Day Years Used Date Smoking Tobacco: Never Assessed Sex and Gender Information Value Date Recorded Sex Assigned at Not on file 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
--- OUTSIDE RECORDS SUMMARY | 2025-02-12 13:24 | XMS_ITS | Encounter Summary ---
Author Organization [facility] Address [address] [facility] [place] [address] Care Team Providers Care Piece Hand Name Role Phone Srinivasa Anderson MD Primary Care Provider [phone] Encounter Details Date Type Department Care Team (Latest Contact Info) Description 2006 Outpatient Historical [facility] [place] [place] [address] Srinivasa Anderson MD [address] [place] [address] Other Testicular Hypofunction (Primary Dx) Social History Tobacco Use Types Packs/Day Years Used Date Smoking Tobacco: Never Assessed Sex and Gender Information Value Date Recorded Sex Assigned at Not on file 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
--- OUTSIDE RECORDS SUMMARY | 2025-02-12 13:24 | XMS_ITS | Encounter Summary ---
Author Organization [facility] Address [address] [place] [address] Care Team Providers Care Induction Furnace Operator Name Role Phone Srinivasa Anderson MD Primary Care Provider [phone] Encounter Details Date Type Department Care Team (Latest Contact Info) Description 10/10/2006 Outpatient Historical [facility] Dermatology- [facility] [place] [address] [place] [address] Zoltna Mahoney MD NO ADDRESS ON FILE Actinic Keratosis (Primary Dx); Other Seborrheic Keratosis; Benign John Scalp/Skin Neck Social History Tobacco Use Types Packs/Day Years Used Date Smoking Tobacco: Never Assessed Sex and Gender Information Value Date Recorded Sex Assigned at Not on file 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
--- OUTSIDE RECORDS SUMMARY | 2025-02-12 13:24 | XMS_ITS | Encounter Summary ---
Author Organization [facility] Address [address] [place] [address] Care Team Providers Care Marketing Sales Consultant Name Role Phone Srinivasa Anderson MD Primary Care Provider [phone] Encounter Details Date Type Department Care Team (Latest Contact Info) Description 04/25/2006 Outpatient Historical [facility] [place] [place] [address] Srinivasa Anderson MD [address] [place] [address] Acute Sinusitis, Unspecified (Primary Dx) Social History Tobacco Use Types Packs/Day Years Used Date Smoking Tobacco: Never Assessed Sex and Gender Information Value Date Recorded Sex Assigned at Not on file 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
--- OUTSIDE RECORDS SUMMARY | 2025-02-12 13:24 | XMS_ITS | Encounter Summary ---
Author Organization [facility] Address [address] [facility] [place] [place] [address] Care Team Providers Care Letter Carrier Name Role Phone Srinivasa Anderson MD Primary Care Provider [phone] Encounter Details Date Type Department Care Team (Latest Contact Info) Description 10/24/2006 Outpatient Historical [facility] [place] [place] [address] Srinivasa Anderson MD [address] [place] [address] Other Testicular Hypofunction (Primary Dx) Social History Tobacco Use Types Packs/Day Years Used Date Smoking Tobacco: Never Assessed Sex and Gender Information Value Date Recorded Sex Assigned at Not on file 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
--- OUTSIDE RECORDS SUMMARY | 2025-02-12 13:24 | XMS_ITS | Encounter Summary ---
Author Organization [facility] Address [address] [place] [address] Care Team Providers Care Parts Lister Name Role Phone Srinivasa Anderson MD Primary Care Provider [phone] Encounter Details Date Type Department Care Team (Latest Contact Info) Description 04/11/2006 Outpatient Historical [facility] [address] 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
--- OUTSIDE RECORDS SUMMARY | 2025-02-12 13:25 | XMS_ITS | Encounter Summary ---
Author Organization [facility] Address [address] [facility] [place] [address] Care Team Providers Care Snowmobile Mechanic Name Role Phone Srinivasa Anderson MD Primary Care Provider [phone] Encounter Details Date Type Department Care Team (Latest Contact Info) Description 10/19/2005 Outpatient Historical [facility] [place] [place] [address] Srinivasa Anderson MD [address] [place] [address] Other Testicular Hypofunction (Primary Dx) Social History Tobacco Use Types Packs/Day Years Used Date Smoking Tobacco: Never Assessed Sex and Gender Information Value Date Recorded Sex Assigned at Not on file 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
--- OUTSIDE RECORDS SUMMARY | 2025-02-12 13:25 | XMS_ITS | Encounter Summary ---
Author Organization [facility] Address [address] [place] [address] Care Team Providers Care Electrical Prospector Name Role Phone Srinivasa Anderson MD Primary Care Provider [phone] Encounter Details Date Type Department Care Team (Latest Contact Info) Description 09/27/2005 Outpatient Historical [facility] Dermatology- [facility] [place] [address] [place] [address] Zoltan Mahoney MD NO ADDRESS ON FILE Malig John Skin Arm (Primary Dx); Actinic Keratosis; Other Seborrheic Keratosis Social History Tobacco Use Types Packs/Day Years Used Date Smoking Tobacco: Never Assessed Sex and Gender Information Value Date Recorded Sex Assigned at Not on file 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
--- OUTSIDE RECORDS SUMMARY | 2025-02-12 13:25 | XMS_ITS | Encounter Summary ---
Author Organization [facility] Address [address] [facility] [place] [address] Care Team Providers Care Solicitor Patent Name Role Phone Srinivasa Anderson MD Primary Care Provider Encounter Details Date Type Department Care Team (Latest Contact Info) Description 11/22/2005 Outpatient Historical [facility] [place] [place] [address] Nati Espinoza MD [address] [place] [address] Other Testicular Hypofunction (Primary Dx) Social History Tobacco Use Types Packs/Day Years Used Date Smoking Tobacco: Never Assessed Sex and Gender Information Value Date Recorded Sex Assigned at Not on file 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
--- OUTSIDE RECORDS SUMMARY | 2025-02-12 13:25 | XMS_ITS | Encounter Summary ---
Author Organization [facility] Address [address] [place] [address] Care Team Providers Care Legal Clerk Name Role Phone Srinivasa Anderson MD Primary Care Provider [phone] Encounter Details Date Type Department Care Team (Latest Contact Info) Description 07/25/2005 Outpatient Historical [facility] Dermatology- [facility] [place] [address] [place] [address] Zoltan Mahoney MD NO ADDRESS ON FILE Malig John Skin Arm (Primary Dx); Other Seborrheic Keratosis Social History Tobacco Use Types Packs/Day Years Used Date Smoking Tobacco: Never Assessed Sex and Gender Information Value Date Recorded Sex Assigned at Not on file Legal Sex Male 3:[address]LECTIONS OFFICER Gender Identity Not on file Sexual Orientation Not on file documented as of this encounter Plan of Treatment Not on file documented as of this encounter Visit Diagnoses Diagnosis 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
--- OUTSIDE RECORDS SUMMARY | 2025-02-12 13:25 | XMS_ITS | Encounter Summary ---
Author Organization [facility] Address [address] [facility] [place] [address] Care Team Providers Care Bulk Station Agent Name Role Phone Srinivasa Anderson MD Primary Care Provider [phone] Encounter Details Date Type Department Care Team (Latest Contact Info) Description 10/10/2005 Outpatient Historical [facility] Dermatology- [facility] [place] [address] [place] [address] Zoltan Mahoney MD NO ADDRESS ON FILE [...] shoulder documented in this encounter Care Teams Bulk Station Agent Relationship Specialty Start Date End Date Srinivasa Anderson MD [address] [place] [address] PCP - General 07/18/04 documented as of this encounter
--- OUTSIDE RECORDS SUMMARY | 2025-02-12 13:25 | XMS_ITS | Encounter Summary ---
Author Organization [facility] Address [address] [place] [address] Care Team Providers Care Home Health Registered Nurse Name Role Phone Srinivasa Anderson MD Primary Care Provider [phone] Encounter Details Date Type Department Care Team (Latest Contact Info) Description 08/16/2005 Outpatient Historical [facility] [place] [place] [address] Srinivasa Anderson MD [address] [place] [address] Other Testicular Hypofunction (Primary Dx) Social History Tobacco Use Types Packs/Day Years Used Date Smoking Tobacco: Never Assessed Sex and Gender Information Value Date Recorded Sex Assigned at Not on file 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
--- OUTSIDE RECORDS SUMMARY | 2025-02-12 13:25 | XMS_ITS | Encounter Summary ---
Author Organization [facility] Address [address] [place] [address] Care Team Providers Care Voice Coach Name Role Phone Srinivasa Anderson MD Primary Care Provider [phone] Encounter Details Date Type Department Care Team (Latest Contact Info) Description 10/10/2005 Outpatient Historical [facility] [address] 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
--- OUTSIDE RECORDS SUMMARY | 2025-02-12 13:25 | XMS_ITS | Encounter Summary ---
Author Organization [facility] Address [address] [place] [address] Care Team Providers Care Green End Worker Name Role Phone Srinivasa Anderson MD Primary Care Provider [phone] Encounter Details Date Type Department Care Team (Latest Contact Info) Description 07/25/2005 Outpatient Historical [facility] [address] 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
--- OUTSIDE RECORDS SUMMARY | 2025-02-12 13:25 | XMS_ITS | Encounter Summary ---
Author Organization [facility] Address [address] [facility] [place] [address] Care Team Providers Care Youth Pastor Name Role Phone Srinivasa Anderson MD Primary Care Provider [phone] Encounter Details Date Type Department Care Team (Latest Contact Info) Description 02/07/2006 Outpatient Historical [facility] [place] [place] [address] Srinivasa Anderson MD [address] [place] [address] Other Testicular Hypofunction (Primary Dx) Social History Tobacco Use Types Packs/Day Years Used Date Smoking Tobacco: Never Assessed Sex and Gender Information Value Date Recorded Sex Assigned at Not on file 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
--- OUTSIDE RECORDS SUMMARY | 2025-02-12 13:26 | XMS_ITS | Encounter Summary ---
Author Organization [facility] Address [address] [place] [address] Care Team Providers Care Textile Knitter Name Role Phone Srinivasa Anderson MD Primary Care Provider [phone] Encounter Details Date Type Department Care Team (Late st Contact Info) Description 04/17/2007 Outpatient Historical [facility] [place] [place] [address] Srinivasa Anderson MD [address] [place] [address] Social History Tobacco Use Types Packs/Day Years Used Date Smoking Tobacco: Never Assessed Sex and Gender Information Value Date Recorded Sex Assigned at Not on file 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
--- OUTSIDE RECORDS SUMMARY | 2025-02-12 13:26 | XMS_ITS | Encounter Summary ---
Author Organization [facility] Address [address] [place] [address] Care Team Providers Care Activities Aide Name Role Phone Srinivasa Anderson MD Primary Care Provider [phone] Encounter Details Date Type Department Care Team (Latest Contact Info) Description 12/27/2004 Outpatient Historical [facility] [place] [place] [address] Srinivasa Anderson MD [address] [place] [address] TESTICULAR HYPOFUNC NEC (Primary Dx) Social History Tobacco Use Types Packs/Day Years Used Date Smoking Tobacco: Never Assessed Sex and Gender Information Value Date Recorded Sex Assigned at Not on file 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
--- OUTSIDE RECORDS SUMMARY | 2025-02-12 13:26 | XMS_ITS | Encounter Summary ---
Author Organization [facility] Address [address] [facility] [facility] [address] Care Team Providers Care Electric Mule Operator Name Role Phone Srinivasa Anderson MD Primary Care Provider [phone] Encounter Details Date Type Department Care Team (Late st Contact Info) Description 05/15/2007 Outpatient [facility] [place] [place] [address] Srinivasa Anderson MD [address] [place] [address] Social History Tobacco Use Types Packs/Day Years Used Date Smoking Tobacco: Never Assessed Sex and Gender Information Value Date Recorded Sex Assigned at Not on file 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
--- OUTSIDE RECORDS SUMMARY | 2025-02-12 13:26 | XMS_ITS | Encounter Summary ---
Author Organization [facility] Address [address] [facility] [place] [address] Care Team Providers Care Slice Cutting Machine Operator Name Role Phone Srinivasa Anderson MD Primary Care Provider [phone] Reason for Referral * Outpatient Services (Routine) - Closed Specialty Diagnoses / Procedures Referred By Contac t Referred To Contact Diagnoses Breast swelling Procedures MAMMO DIGITAL DIAG BILAT Srinivasa Anderson MD [address] [place] [address] Phone: tel: fax: Referral ID Status Reason Start Date Expiration Date Visits Re quested Visits Authorized [id number] Closed 04/08/2012 04/08/2013 1 1 LACEMENT CONSULTANT Encounter Details Date Type Department Care Team (Late st Contact Info) Description 04/08/2012 Ancillary Orders [facility] [place] [place] [address] Srinivasa Anderson MD [address] [place] [address] Breast swelling Social History Tobacco Use Types Packs/Day Years Used Date Smoking Tobacco: Former Cigarettes 0.5 30 0 04/22/1962 - 04/22/1992 Smokeless Tobacco: Never Alcohol Use Standard Drinks/Week Comments No 0 (1 standard drink = 0.6 oz pur e alcohol) Sex and Gender Information Value Date Recorded Sex Assigned at Not on file Legal Sex Male 3:08 AM OUTPLACEMENT CONSULTANT Gender Identity Not on file Sexual Orientation Not on file Occupation Industry Job Start Date Job End Date Not on file Not on file Not on file Not on file documented as of this encounter Plan of Treatment Not on file documented as of this encounter Results * MAMMO DIGITAL DIAG BILAT (04/08/2012 11:03 AM OUTPLACEMENT CONSULTANT) Anatomical Region Laterality Modality Breast Bilateral Mammography 04/08/2012 10:0 1 AM OUTPLACEMENT CONSULTANT Impressions 04/08/2012 8:55 PM OUTPLACEMENT CONSULTANT IMPRESSION: Bilateral diagnostic exam and directed left breast ultrasound was performed today. The mammogram is unremarkable as well as the directed left breast ultrasound. Therefore clinical correlation is recommended regarding the reported symptoms. Patient received the result and recommendation letter. Spencer 1140 AM - uploaded from [employer] - Narrative 04/08/2012 8:55 PM OUTPLACEMENT CONSULTANT REASON FOR EXAM: Patient is reporting to [...] by the Computer Aided Detection System (CAD), [employer] ImageChecker, Version 8.3. LEFT BREAST ULTRASOUND: Sonographic [...] by the Computer Aided Detection System (CAD), [employer] ImageAfterStepscker, Version 8.3. LEFT BREAST ULTRASOUND: Sonographic evaluation [...] letter. DB/allie 1140 AM - uploaded from [employer] - us Srinivasa Anderson MD MAMMO ORDERABLES Final Result documented in this encounter Visit Diagnoses Diagnosis Breast swelling Lump or mass in breast Breast swelling Lump or mass in breast documented in this encounter Care Teams Slice Cutting Machine Operator Relationship Specialty Start Date End Date Srinivasa Anderson MD [address] [address] PCP - General 07/18/04 documented as of this encounter
--- OUTSIDE RECORDS SUMMARY | 2025-02-12 13:26 | XMS_ITS | Encounter Summary ---
Author Organization [facility] Address [address] [place] [address] Care Team Providers Care Lettuce Cutter Name Role Phone Srinivasa Anderson MD Primary Care Provider [phone] Reason for Referral * Outpatient Services (Routine) - Closed Specialty Diagnoses / Procedures Referred By Contac t Referred To Contact Diagnoses Breast swelling Procedures MAMMO BREAST US LT Srinivasa Anderson MD [address] [place] [address] Phone: tel: fax: Referral ID Status Reason Start Date Expiration Date Visits Re quested Visits Authorized [id number] Closed 04/08/2012 04/08/2013 1 1 IERY CLERK Encounter Details Date Type Department Care Team (Late st Contact Info) Description 04/08/2012 Ancillary Orders [facility] [place] [place] [address] Srinivasa Anderson MD [address] [place] [address] Breast swelling Social History Tobacco Use Types Packs/Day Years Used Date Smoking Tobacco: Former Cigarettes 0.5 30 0 04/22/1962 - 04/22/1992 Smokeless Tobacco: Never Alcohol Use Standard Drinks/Week Comments No 0 (1 standard drink = 0.6 oz pur e alcohol) Sex and Gender Information Value Date Recorded Sex Assigned at Not on file 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 The mammogram is unremarkable as well as the directed left breast ultrasound. Therefore clinical correlation is recommended regarding the reported symptoms. Patient received the result and recommendation letter. Spencer 1140 AM - uploaded from [email or web address] 04/08/2012 8:55 PM COLLIERY CLERK REASON FOR EXAM: Patient is reporting to [...] by the Computer Aided Detection System (CAD), [employer] ImageChecker, Version 8.3. LEFT BREAST ULTRASOUND: Sonographic [...] by the Computer Aided Detection System (CAD), [employer] ImageNexalin Technologycker, Version 8.3. LEFT BREAST ULTRASOUND: Sonographic evaluation [...] letter. DB/allie 1140 AM - uploaded from Stir - us Srinivasa Anderson MD MAMMO ORDERABLES Final Result documented in this encounter Visit Diagnoses Diagnosis Breast swelling Lump or mass in breast Breast swelling Lump or mass in breast documented in this encounter Care Teams Lettuce Cutter Relationship Specialty Start Date End Date Srinivasa Anderson MD [address] [address] PCP - General 07/18/04 documented as of this encounter
--- OUTSIDE RECORDS SUMMARY | 2025-02-12 13:26 | XMS_ITS | Encounter Summary ---
Author Organization [facility] Address [address] [facility] [address] [facility] [place] [address] Care Team Providers Care Lead Java J2Ee Developer Name Role Phone Srinivasa Anderson MD Primary Care Provider [phone] Encounter Details Date Type Department Care Team (Latest Contact Info) Description 09/04/2005 Outpatient Historical [facility] [place] [place] [address] Srinivasa Anderson MD [address] [place] [address] Unspecified Essential Hypertension (Primary Dx); Other and Unspecified Hyperlipidemia; Abdominal Pain, Unspecified Site; Depressive Disorder, not Elsewhere Classified Social History Tobacco Use Types Packs/Day Years Used Date Smoking Tobacco: Never Assessed Sex and Gender Information Value Date Recorded Sex Assigned at Not on file 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
--- OUTSIDE RECORDS SUMMARY | 2025-02-12 13:26 | XMS_ITS | Encounter Summary ---
Author Organization [facility] Address [address] [place] [facility] [place] [address] Care Team Providers Care Clearance Rep Name Role Phone Srinivasa Anderson MD Primary Care Provider [phone] Encounter Details Date Type Department Care Team (Latest Contact Info) Description 01/17/2005 Outpatient Historical [facility] Pod[facility] Robles Mcint[place] [address] [place] [address] Juma Eng, DPM [address] [place] [address] GANGLION OF JOINT (Primary Dx); BUNION; EXOSTOSIS, SITE NOS Social History Tobacco Use Types Packs/Day Years Used Date Smoking Tobacco: Never Assessed Sex and Gender Information Value Date Recorded Sex Assigned at Not on file 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
--- OUTSIDE RECORDS SUMMARY | 2025-02-12 13:26 | XMS_ITS | Clinical Summary ---
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 Gender Identity Not on file Sexual Orientation Not on file Occupation Industry Job Start Date Job End Date Not on file Not on file Not on file Not on file Last Filed Vital Signs Vital Sign Reading Time Taken Comments Blood Pressure 118/84 06/23/2020 11:43 AM TELESALES PROFESSIONAL Pulse 60 06/23/2020 11:43 AM TELESALES PROFESSIONAL Temperature 36.4 C (97.6 F) 02/19/2020 3:25 PM CDT Respiratory Rate 16 02/19/2020 3:25 PM CDT Oxygen Saturation 99% 06/23/2020 11:43 AM TELESALES PROFESSIONAL Inhaled Oxygen Concentration - - Weight 78.5 kg (173 lb) 06/23/2020 11:43 AM TELESALES PROFESSIONAL Height 191.8 cm (6' 3.5 ) 06/23/2020 11:43 AM CS T Body Mass Index 21.34 06/23/2020 11:43 AM TELESALES PROFESSIONAL Plan of Treatment Health Maintenance Due Date Last Done Comments ZOSTER VACCINE (1 of 2) 02/14/2012 12/20/2011 RSV VACCINE (60+ or ) (1 - 1-dose 75+ series) 2012 DIABETES ANNUAL FOOT EXAM 03/19/20182016, 01/26/2016, 08/01/2010, Additional history exists DTAP/TDAP/TD VACCINES (2 - T d or Tdap) 05/25/2018 05/25/2008 Traditional Medicare (ACO) A nnual Wellness Visit 10/15/2020 10/15/2019, 10/09/2018, 10/03/2017, Additional history exists DIABETES MICROALBUMIN ANNUAL SCREEN 11/08/2020 11/09/2019, 12/19/2018, 08/20/2018, Additional history exists LDL CHOLESTEROL ANNUAL 11/08/2020 , 10/09/2018, 03/19/2017, Additional history exists DIABETES HBA1C Q 6 MONTHS 05/31/20232022, 11/09/2019, 11/09/2019, Additional history exists DIABETES ANNUAL RETINAL EXAM 07/17/2023, 05/01/2021, 09/03/2019, Additional history exists INFLUENZA VACCINE (#1) 2024 0, 01/21/2019, 01/24/2018, Additional history exists COLORECTAL SCREENING 12/01/2027 11/30/2022, 08/12/2009, 08/12/2009, Additional history exists PNEUMOCOCCAL VACCINE 50+ YEARS Completed 0 01/12/2020, 06/03/2014, 06/23/2009, Additional history exists Medical Devices Implanted Type Area Sales Commissions Analyst Device Identifier Shelf Expiration Date Model / Serial / Lot Lens Io Tecnis 1pc 22.0 [id number] - [id number] Implanted:Qty: 1 on 08/23/2016 by Dominic Peralta MD at [facility] Left: Eye [employer] 10/20/2019 [id number] / [id number] / Lens Io Tecnis 1pc 22.5 [id number] - [id number] Implanted:Qty: 1 on 09/06/2016 by Dominic Peralta MD at [facility] Right: Eye [employer] 12/19/2019 [id number] / [id number] / Procedures Procedure Name Priority Date/Time Associated Diagnosis Comments MICROALBUMIN/CREATI NINE RATIO, RANDOM UR Routine 11/09/2019 9:43 AM CDT Diabetic polyneuropathy associated with type 2 diabetes mellitus ([facility]/H[facility]) LIPID PANEL Routine 11/09/2019 9:43 AM CDT Diabetic polyneuropathy associated with type 2 diabetes mellitus ([facility]/HCC) HEMOGLOBIN A1C Routine 11/09/2019 9:43 AM CDT Diabetic polyneuropathy associated with type 2 diabetes mellitus ([facility]/HCC) HM DIABETES EYE EXAM Routine 11/17/2018 ENDOSCOPY, COLON, SCREENING Routine 08/12/2009 10:57 AM CDT Special Screening for Malignant Neoplasms, Colon from Last 3 Months or Most Recently Relevant to Health Maintenance Results * (ABNORMAL) MICROALBUMIN/CREATININE RATIO, RANDOM UR (11/09/2019 9:43 AM CDT) MICROALBUMIN, URINE 5.3 No Reference Range mg/dL 11/09/2019 9:33 PM CDT [facility] CREATININE, URINE 139.7 40.0 - 278.0 mg/dL 11/09/2019 9:33 PM CDT [facility] Comment:Reference Range vari es with fluid intake and diet. MICROALBUMIN/ CREAT RATIO, UR 37.9(H) <17.0 mg/g 11/09/2019 9:33 PM CDT [facility] Urine URINE SPECIMEN OBTAINED BY CLEAN CATCH PROCEDURE / Unknown Collection / Unknown 11/09/2019 9:43 AM CDT 11/09/2019 8:19 PM CDT [facility] - 11/09/2019 9:33 PM CDT Condition Microalbumin/Creat ratio Normal Males <17 Normal Females <25 Microalbuminuria Males 17-299 Microalbuminuria Females 25-299 Overt proteinuria >=300 us Srinivasa Anderson MD URINE ORDERABLES Final Result [facility] CLIA# [id number] [address] [place] [address] * (ABNORMAL) HEMOGLOBIN A1C (11/09/2019 9:43 AM CDT) HEMOGLOBIN A1C 6.2(H) See Comment % 11/09/2019 9:37 PM CDT [facility] EST. AVG GLUCOSE, A1C 131 mg/dL 11/09/2019 9:37 PM CDT [facility] Blood Venipuncture / Unknown 11/09/2019 9:43 AM CDT 11/09/2019 8:23 PM CDT [facility] - 11/09/2019 9:37 PM CDT HGB A1C INTERPRETATION NORMAL: <5.7% PRE-DIABETES: 5.7 - 6.4% DIABETES: 6.5% OR GREATER Falsely low A1C measurements can occur when: 1. Anemia and/or hemolytic anemia is present. 2. Hemoglobin variants present. 3. Renal failure. 4. Transfusion of blood product in the last 120 days. We recommend ordering a fructosamine test([id number]) to more accurately assess glycemic status if any of the above conditions are present. us Srinivasa Anderson MD CHEMISTRY ORDERABLES Final Resul t [facility] CLIA# [id number] [address] [place] [address] * (ABNORMAL) LIPID PANEL (11/09/2019 9:43 AM CDT) [facility] CHOLESTEROL 189 <200 mg/dL 11/09/2019 9:10 PM CDT [facility] TRIGLYCERIDE 102 <150 mg/dL 11/09/2019 9:10 PM T [facility] HDL 47 40 - 59 mg/dL 11/09/2019 9:10 PM CDT [facility] LDL CALCULATED 122(H) <100 mg/dL 11/09/2019 9:10 PM T [facility] NON-HDL CHOLESTEROL 142(H) <130 mg/dL 11/09/2019 9:10 PM T [facility] Blood Venipuncture / Unknown 11/09/2019 9:43 AM CDT 11/09/2019 8:24 PM CDT Narrative [facility]OPE[facility]IR[facility] - 11/09/2019 9:10 PM CDT TOTAL CHOLESTEROL [...] Reference Ranges for Lipid Panels (NCEP/AMA) . Srinivasa Anderson MD CHEMISTRY ORDERABLES Final Resul t [facility]# [id number] [address] [place] [address] * DIABETES EYE EXAM (11/17/2018) us Abstract Spg Provider HEALTH MAINTENANCE Final R esult from Last 3 Months or Most Recently Relevant to Health Maintenance Insurance [address] [place] [address] MEDICARE PART A AND B AAR SUPP [address] [place] [address] RX [employer] RX Member Subscriber Plan / Payer (Ef fective 2005-Present) Name:Moiz Hernandez Relation to Subscriber:Self Name:Moiz Hernandez Payer ID:Not on file Group ID:[id number] Type:RX Medicare Part D Address: [address] [address] [place] Medicare Part B Advance Directives For more information, please contact: [phone] Documents on File Type Date Recorded Patient Media Production Operator Expl anation Advance Directive Living Will 07/23/2012 [...] 10:57 AM 08/13/2009 2:32 AM Care Teams Water Conservationist Relationship Specialty Start Date End Date Srinivasa Anderson MD [address] [address] PCP - General 07/18/04
--- OUTSIDE RECORDS SUMMARY | 2025-02-12 13:26 | XMS_ITS | Encounter Summary ---
Author Organization [facility] Address [address] [place] [address] Care Team Providers Care Parole Officer Name Role Phone Srinivasa Anderson MD Primary Care Provider [phone] Encounter Details Date Type Department Care Team (Latest Contact Info) Description 11/24/2004 Outpatient Historical [facility] [place] [place] [address] Srinivasa Anderson MD [address] [place] [address] TESTICULAR HYPOFUNC NEC (Primary Dx) Social History Tobacco Use Types Packs/Day Years Used Date Smoking Tobacco: Never Assessed Sex and Gender Information Value Date Recorded Sex Assigned at Not on file 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
--- OUTSIDE RECORDS SUMMARY | 2025-02-12 13:26 | XMS_ITS ---
Author Organization [facility] Address [address] [address] Care Team Providers Care Tube Station Attendant Name Role Phone Srinivasa Anderson MD Primary Care Provider [phone] Active Problems Problem Noted Date Diagnosed Date [...]
--- OUTSIDE RECORDS SUMMARY | 2025-02-12 13:26 | XMS_ITS | Encounter Summary ---
Author Organization [facility] Address [address] [place] [address] Care Team Providers Care Division Head Name Role Phone Srinivasa Anderson MD Primary Care Provider [phone] Encounter Details Date Type Department Care Team (Latest Contact Info) Description 03/10/2007 Outpatient Historical [facility] Services [address] 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
--- OUTSIDE RECORDS SUMMARY | 2025-02-12 13:26 | XMS_ITS | Encounter Summary ---
Author Organization [facility] Address [address] [place] [address] Care Team Providers Care Ortho Nurse Name Role Phone Srinivasa Anderson MD Primary Care Provider [phone] Encounter Details Date Type Department Care Team (Latest Contact Info) Description 03/20/2007 Outpatient Historical [facility] [place] [place] [address] Srinivasa Anderson MD [address] [place] [address] Other Testicular Hypofunction (Primary Dx) Social History Tobacco Use Types Packs/Day Years Used Date Smoking Tobacco: Never Assessed Sex and Gender Information Value Date Recorded Sex Assigned at Not on file Legal Sex Male 3:08 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
--- OUTSIDE RECORDS SUMMARY | 2025-02-12 13:27 | XMS_ITS | Encounter Summary ---
Author Organization [facility] Address [address] [facility] [place] [address] Care Team Providers Care Automatic Presser Name Role Phone Srinivasa Anderson MD Primary Care Provider [phone] Encounter Details Date Type Department Care Team (Latest Contact Info) Description 10/03/2004 Outpatient [facility] [place] [place] [address] Srinivasa Anderson MD [address] [place] [address] HYPERTENSION NOS (Primary Dx); Plantar fibromatosis; OTHER MALAISE AND FATIGUE; Toxic effect venom Social History Tobacco Use Types Packs/Day Years Used Date Smoking Tobacco: Never Assessed Sex and Gender Information Value Date Recorded Sex Assigned at Not on file 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 Sex Male 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
--- OUTSIDE RECORDS SUMMARY | 2025-02-12 13:27 | XMS_ITS | Encounter Summary ---
Author Organization [facility] Address [address] [facility] [place] [address] Care Team Providers Care Golf Range Attendant Name Role Phone Srinivasa Anderson MD Primary Care Provider [phone] Encounter Details Date Type Department Care Team (Latest Contact Info) Description 09/23/2002 Outpatient Historical [facility] D[facility]- [facility] [place] [address] [place] [address] Zoltan Mahoney MD NO ADDRESS ON FILE ACTINIC KERATOSIS (Primary Dx); MALIG NEOPLASM SKIN FACE NEC; Inflamed seborr keratos Social History Tobacco Use Types Packs/Day Years Used Date Smoking Tobacco: Never Assessed Sex and Gender Information Value Date Recorded Sex Assigned at Not on file 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
--- OUTSIDE RECORDS SUMMARY | 2025-02-12 13:27 | XMS_ITS | Encounter Summary ---
Author Organization [facility] Address [address] [facility] [place] [address] Care Team Providers Care Bulk Materials Handling Plant Operator Name Role Phone Srinivasa Anderson MD Primary Care Provider [phone] Encounter Details Date Type Department Care Team (Latest Contact Info) Description 01/26/2005 Outpatient Historical [facility] [place] [place] [address] Srinivasa Anderson MD [address] [place] [address] ANXIETY STATE NOS (Primary Dx); IMPOTENCE, ORGANIC ORIGN; MALAISE AND FATIGUE NEC; TESTICULAR HYPOFUNC NEC Social History Tobacco Use Types Packs/Day Years Used Date Smoking Tobacco: Never Assessed Sex and Gender Information Value Date Recorded Sex Assigned at Not on file 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
--- OUTSIDE RECORDS SUMMARY | 2025-02-12 13:27 | XMS_ITS | Encounter Summary ---
Author Organization [facility] Address [address] [place] [address] Care Team Providers Care Anodizing Line Operator Name Role Phone Srinivasa Anderson MD Primary Care Provider [phone] Encounter Details Date Type Department Care Team (Latest Contact Info) Description 02/08/2004 Outpatient Historical [facility] Imaging Services-Nilay Robles [place] [address] [place] [address] Mark Lux MD [address] [place] [address] HEMATURIA (Primary Dx) Social History Tobacco Use Types Packs/Day Years Used Date Smoking Tobacco: Never Assessed Sex and Gender Information Value Date Recorded Sex Assigned at Not on file 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
--- OUTSIDE RECORDS SUMMARY | 2025-02-12 13:27 | XMS_ITS | Encounter Summary ---
Author Organization [facility] Address [address] [place] [address] Care Team Providers Care Slotter Operator Helper Name Role Phone Srinivasa Anderson MD Primary Care Provider [phone] Encounter Details Date Type Department Care Team (Latest Contact Info) Description 02/17/2004 Outpatient Historical [facility] Imaging Services-Nilay [place] [address] [place] [address] Mark Lux MD [address] [place] [address] ABNORMAL FINDINGS- ORGANS (Primary Dx) Social History Tobacco Use Types Packs/Day Years Used Date Smoking Tobacco: Never Assessed Sex and Gender Information Value Date Recorded Sex Assigned at Not on file 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
--- OUTSIDE RECORDS SUMMARY | 2025-02-12 13:27 | XMS_ITS | Encounter Summary ---
Author Organization [facility] Address [address] [place] [address] Care Team Providers Care Software Support Engineer Name Role Phone Srinivasa Anderson MD Primary Care Provider Encounter Details Date Type Department Care Team (Latest Contact Info) Description 11/10/2003 Outpatient Historical [facility] Imaging Services-Nilay Robles [place] [address] [place] [address] Mark Lux MD [address] [place] [address] HYPERTENSION NOS (Primary Dx) Social History Tobacco Use Types Packs/Day Years Used Date Smoking Tobacco: Never Assessed Sex and Gender Information Value Date Recorded Sex Assigned at Not on file Legal Sex Male 3: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
--- OUTSIDE RECORDS SUMMARY | 2025-02-12 13:27 | XMS_ITS | Encounter Summary ---
Author Organization [facility] Address [address] [place] [place] [address] Care Team Providers Care Calendering Supervisor Name Role Phone Srinivasa Anderson MD Primary Care Provider [phone] Encounter Details Date Type Department Care Team (Latest Contact Info) Description 09/23/2002 Outpatient Historical [facility] Dermatology- [facility] [place] [address] [place] [address] Zoltan Mahoney MD NO ADDRESS ON FILE MALIG NEOPLASM SKIN EAR (Primary Dx) Social History Tobacco Use Types Packs/Day Years Used Date Smoking Tobacco: Never Assessed Sex and Gender Information Value Date Recorded Sex Assigned at Not on file 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
--- OUTSIDE RECORDS SUMMARY | 2025-02-12 13:27 | XMS_ITS | Encounter Summary ---
Author Organization [facility] Address [address] [facility] [place] [address] Care Team Providers Care Char Filter Tank Tender Head Name Role Phone Srinivasa Anderson MD Primary Care Provider [phone] Encounter Details Date Type Department Care Team (Latest Contact Info) Description 01/17/2005 Outpatient Historical [facility] Imaging Services-Nilay Robles [place] [address] [place] [address] Juma Eng, DPM [address] [place] [address] BUNION (Primary Dx) Social History Tobacco Use Types Packs/Day Years Used Date Smoking Tobacco: Never Assessed Sex and Gender Information Value Date Recorded Sex Assigned at Not on file 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
--- OUTSIDE RECORDS SUMMARY | 2025-02-12 13:27 | XMS_ITS | Encounter Summary ---
Author Organization [facility] Address [address] [place] [address] Care Team Providers Care Potato Bucker Name Role Phone Srinivasa Anderson MD Primary Care Provider [phone] Encounter Details Date Type Department Care Team (Latest Contact Info) Description 11/06/2002 Outpatient [facility] Int [facility] [place] [place] [address] Mark Lux MD [address] [place] [address] HYPERTENSION NOS (Primary Dx); Pure hypercholesterolem; OTHER MALAISE AND FATIGUE; VACCINE FOR STREP PNEUMONIAE Social History Tobacco Use Types Packs/Day Years Used Date Smoking Tobacco: Never Assessed Sex and Gender Information Value Date Recorded Sex Assigned at Not on file 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
--- OUTSIDE RECORDS SUMMARY | 2025-02-12 13:27 | XMS_ITS | Encounter Summary ---
Author Organization [facility] Address [address] [place] [facility] [place] [address] Care Team Providers Care Funeral Workers Name Role Phone Srinivasa Anderson MD Primary Care Provider Encounter Details Date Type Department Care Team (Latest Contact Info) Description 06/28/2004 Outpatient Historical [facility] [place] [place] [address] Srinivasa Anderson MD [address] [place] [address] PULM EMBOLISM/INFARCT IATROGENIC (CMS/HCC) (Primary Dx); PERNICIOUS ANEMIA; Benign amado lg bowel; NOCTURIA Social History Tobacco Use Types Packs/Day Years Used Date Smoking Tobacco: Never Assessed Sex and Gender Information Value Date Recorded Sex Assigned at Not on file 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
--- OUTSIDE RECORDS SUMMARY | 2025-02-12 13:27 | XMS_ITS | Encounter Summary ---
Author Organization [facility] Address [address] [place] [facility] [place] [address] Care Team Providers Care Fitness Center Attendant Name Role Phone Srinivasa Anderson MD Primary Care Provider [phone] Encounter Details Date Type Department Care Team (Late st Contact Info) Description 03/30/2004 Outpatient Historical [facility]rology- [place] [address] [facility] [address] [place] [address] Erasmo Rosas MD NO ADDRESS ON FILE OTHER SPEC DISORDER URINARY TRACT (Primary Dx) Social History Tobacco Use Types Packs/Day Years Used Date Smoking Tobacco: Never Assessed Sex and Gender Information Value Date Recorded Sex Assigned at Not on file 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
--- OUTSIDE RECORDS SUMMARY | 2025-02-12 13:27 | XMS_ITS | Encounter Summary ---
Author Organization [facility] Address [address] [place] [address] Care Team Providers Care Breaker Oiler Name Role Phone Srinivasa Anderson MD Primary Care Provider [phone] Encounter Details Date Type Department Care Team (Latest Contact Info) Description 04/25/2004 Outpatient Historical [facility] [place] [place] [address] Srinivasa Anderson MD [address] [place] [address] PULM EMBOLISM/INFARCT NOS (CMS/HCC) (Primary Dx); HYPERTENSION NOS Social History Tobacco Use Types Packs/Day Years Used Date Smoking Tobacco: Never Assessed Sex and Gender Information Value Date Recorded Sex Assigned at Not on file 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
--- OUTSIDE RECORDS SUMMARY | 2025-02-12 13:27 | XMS_ITS | Encounter Summary ---
Author Organization [facility] Address [address] [place] [address] Care Team Providers Care Seal Mixing Operator Name Role Phone Srinivasa Anderson MD Primary Care Provider [phone] Encounter Details Date Type Department Care Team (Latest Contact Info) Description 02/08/2004 Outpatient Historical [facility] Imaging Services-Nilay Robles [place] [address] [place] [address] Mark Lux MD [address] [place] [address] HEMATURIA (Primary Dx) Social History Tobacco Use Types Packs/Day Years Used Date Smoking Tobacco: Never Assessed Sex and Gender Information Value Date Recorded Sex Assigned at Not on file 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
--- OUTSIDE RECORDS SUMMARY | 2025-02-12 13:27 | XMS_ITS | Encounter Summary ---
Author Organization [facility] Address [address] [place] [address] Care Team Providers Care Slitter Processed Film Name Role Phone Srinivasa Anderson MD Primary Care Provider [phone] Encounter Details Date Type Department Care Team (Latest Contact Info) Description 02/15/2004 Outpatient Historical [facility] Imaging Services-Nilay Robles [place] [address] [place] [address] Mark Lux MD [address] [place] [address] HEMATURIA (Primary Dx) Social History Tobacco Use Types Packs/Day Years Used Date Smoking Tobacco: Never Assessed Sex and Gender Information Value Date Recorded Sex Assigned at Not on file 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
--- OUTSIDE RECORDS SUMMARY | 2025-02-12 13:27 | XMS_ITS | Encounter Summary ---
Author Organization [facility] Address [address] [facility] [place] [address] Care Team Providers Care Feed Research Technician Name Role Phone Srinivasa Anderson MD Primary Care Provider [phone] Encounter Details Date Type Department Care Team (Latest Contact Info) Description 10/26/2004 Outpatient Historical [facility] Derm[facility]- [facility] [place] [address] [place] [address] Zoltan Mahoney MD NO ADDRESS ON FILE Malig amado skin arm (Primary Dx); ACTINIC KERATOSIS; Inflamed seborr keratos; SEBORRHEIC KERATOSIS NOS Social History Tobacco Use Types Packs/Day Years Used Date Smoking Tobacco: Never Assessed Sex and Gender Information Value Date Recorded Sex Assigned at Not on file 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 Gender Identity Not on file Sexual Orientation Not on file documented as of this encounter Plan of Treatment Not on file documented as of this encounter Visit Diagnoses Diagnosis 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
--- OUTSIDE RECORDS SUMMARY | 2025-02-12 13:27 | XMS_ITS | Encounter Summary ---
Author Organization [facility] Address [address] [place] [address] Care Team Providers Care Hand Tapper Name Role Phone Srinivasa Anderson MD Primary Care Provider [phone] Encounter Details Date Type Department Care Team (Latest Contact Info) Description 07/18/2004 Outpatient Historical [facility] Endoscopy [place] [address] [facility] [address] [place] [address] Ar Stanton MD NO ADDRESS ON FILE INT HEMORRHOID W/O COMPL (Primary Dx) Social History Tobacco Use Types Packs/Day Years Used Date Smoking Tobacco: Never Assessed Sex and Gender Information Value Date Recorded Sex Assigned at Not on file 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
--- OUTSIDE RECORDS SUMMARY | 2025-02-12 13:27 | XMS_ITS | Encounter Summary ---
Author Organization [facility] Address [address] [place] [address] Care Team Providers Care Wrapper Layer And Examiner Soft Work Name Role Phone Srinivasa Anderson MD Primary Care Provider [phone] Encounter Details Date Type Department Care Team (Latest Contact Info) Description 11/30/2003 Outpatient Historical [facility] Dermatology- [facility] [place] [address] [place] [address] Zoltan Mahoney MD NO ADDRESS ON FILE ACTINIC KERATOSIS (Primary Dx); Inflamed seborr keratos; SEBORRHEIC KERATOSIS NOS Social History Tobacco Use Types Packs/Day Years Used Date Smoking Tobacco: Never Assessed Sex and Gender Information Value Date Recorded Sex Assigned at Not on file 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
--- OUTSIDE RECORDS SUMMARY | 2025-02-12 13:27 | XMS_ITS | Encounter Summary ---
Author Organization [facility] Address [address] [facility] [place] [address] Care Team Providers Care Flask Handler Name Role Phone Srinivasa Anderson MD Primary Care Provider [phone] Encounter Details Date Type Department Care Team (Latest Contact Info) Description 02/08/2004 Outpatient Historical [facility] Int [facility] [place] [place] [address] Mark Lux MD [address] [place] [address] HEMATURIA (Primary Dx); LUMBAGO; Vaccine for influenza Social History Tobacco Use Types Packs/Day Years Used Date Smoking Tobacco: Never Assessed Sex and Gender Information Value Date Recorded Sex Assigned at Not on file 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
--- OUTSIDE RECORDS SUMMARY | 2025-02-12 13:27 | XMS_ITS | Encounter Summary ---
Author Organization [facility] Address [address] [facility] [place] [address] Care Team Providers Care Breaker Operator Name Role Phone Srinivasa Anderson MD Primary Care Provider [phone] Encounter Details Date Type Department Care Team (Latest Contact Info) Description 10/26/2004 Outpatient Historical [facility] [place] [place] [address] Srinivasa Anderson MD [address] [place] [address] TESTICULAR HYPOFUNC NEC (Primary Dx) Social History Tobacco Use Types Packs/Day Years Used Date Smoking Tobacco: Never Assessed Sex and Gender Information Value Date Recorded Sex Assigned at Not on file 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
--- OUTSIDE RECORDS SUMMARY | 2025-02-12 13:27 | XMS_ITS | Encounter Summary ---
Author Organization [facility] Address [address] [place] [address] Care Team Providers Care Rn Intake Name Role Phone Srinivasa Anderson MD Primary Care Provider [phone] Encounter Details Date Type Department Care Team (Latest Contact Info) Description 10/26/2004 Outpatient Historical [facility] [place] [address] 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
--- OUTSIDE RECORDS SUMMARY | 2025-02-12 13:27 | XMS_ITS | Encounter Summary ---
Author Organization [facility] Address [address] [place] [address] Care Team Providers Care Egg Factory Worker Name Role Phone Srinivasa Anderson MD Primary Care Provider [phone] Encounter Details Date Type Department Care Team (Latest Contact Info) Description 07/18/2004 Outpatient [facility] Gastroenterology- [place] [address] [place] [address] Ar Stanton MD NO ADDRESS ON FILE FOLLOW-UP EXAM NOS (Primary Dx); PERS HX COLONIC POLYPS; Diverticulosis of colon; INT HEMORRHOID W/O COMPL Social History Tobacco Use Types Packs/Day Years Used Date Smoking Tobacco: Never Assessed Sex and Gender Information Value Date Recorded Sex Assigned at Not on file 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 Gender Identity Not on file Sexual Orientation Not on file documented as of this encounter Plan of Treatment Not on file documented as of this encounter Visit Diagnoses Diagnosis Unspecified follow-up examination- Primary Personal history of colonic polyps Diverticulosis of colon Diverticulosis of colon (without mention of hemorrhage) Internal hemorrhoids without mention of complication documented in this encounter Care Teams Egg Factory Worker Relationship Specialty Start Date End Date Srinivasa Anderson MD [address] [place] [id number] PCP - General 07/18/04 documented as of this encounter
--- OUTSIDE RECORDS SUMMARY | 2025-02-12 13:28 | XMS_ITS | Encounter Summary ---
Author Organization [facility] Address [address] 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
--- OUTSIDE RECORDS SUMMARY | 2025-02-12 13:28 | XMS_ITS | Encounter Summary ---
Author Organization [facility] Address [address] [place] [address] Care Team Providers Care Transportation Analyst Name Role Phone Srinivasa Anderson MD Primary Care Provider [phone] Encounter Details Date Type Department Care Team (Latest Contact Info) Description 03/25/2003 Outpatient Historical [facility] Dermatology- [facility] [place] [address] [place] [address] Zoltan Mahoney MD NO ADDRESS ON FILE ACTINIC KERATOSIS (Primary Dx); Inflamed seborr keratos; SEBORRHEIC KERATOSIS NOS Social History Tobacco Use Types Packs/Day Years Used Date Smoking Tobacco: Never Assessed Sex and Gender Information Value Date Recorded Sex Assigned at Not on file 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
--- OUTSIDE RECORDS SUMMARY | 2025-02-12 13:28 | XMS_ITS | Encounter Summary ---
Author Organization [facility] Address [address] [place] [address] Care Team Providers Care Thoracic Medicine Physician Name Role Phone Srinivasa Anderson MD Primary Care Provider [phone] Encounter Details Date Type Department Care Team (Latest Contact Info) Description 10/14/2001 Outpatient Historical [facility] Imaging Services-Nilay Robles [place] [address] [place] [address] Mark Lux MD [address] [place] [address] HYPERTENSION NOS (Primary Dx) Social History Tobacco Use Types Packs/Day Years Used Date Smoking Tobacco: Never Assessed Sex and Gender Information Value Date Recorded Sex Assigned at Not on file 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
--- OUTSIDE RECORDS SUMMARY | 2025-02-12 13:28 | XMS_ITS | Encounter Summary ---
Author Organization [facility] Address [address] [facility] [place] [address] Care Team Providers Care Convention Manager Name Role Phone Srinivasa Anderson MD Primary Care Provider [phone] Encounter Details Date Type Department Care Team (Latest Contact Info) Description 04/05/2003 Outpatient Historical [facility] Imaging Services-Nilay Robles [place] [address] [place] [address] Mark Lux MD [address] [place] [address] ABDOMINAL PAIN EPIGASTRIC (Primary Dx) Social History Tobacco Use Types Packs/Day Years Used Date Smoking Tobacco: Never Assessed Sex and Gender Information Value Date Recorded Sex Assigned at Not on file 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
--- OUTSIDE RECORDS SUMMARY | 2025-02-12 13:28 | XMS_ITS | Encounter Summary ---
Author Organization [facility] Address [address] [place] [address] Care Team Providers Care Tissue Recovery Technician Name Role Phone Srinivasa Anderson MD Primary Care Provider [phone] Encounter Details Date Type Department Care Team (Latest Contact Info) Description 03/04/2003 Outpatient Historical [facility] [place] [place] [address] Mark Lux MD [address] [place] [address] ABDOMINAL PAIN UNSPEC SITE (Primary Dx); LUMBAGO; ANXIETY STATE NOS Social History Tobacco Use Types Packs/Day Years Used Date Smoking Tobacco: Never Assessed Sex and Gender Information Value Date Recorded Sex Assigned at Not on file 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
--- OUTSIDE RECORDS SUMMARY | 2025-02-12 13:28 | XMS_ITS | Encounter Summary ---
Author Organization [facility] Address [address] [place] [address] Care Team Providers Care Dye Worker Name Role Phone Srinivasa Anderson MD Primary Care Provider [phone] Encounter Details Date Type Department Care Team (Latest Contact Info) Description 08/04/2002 Outpatient Historical [facility] Imaging Services-Nilay Robles [place] [address] [place] [address] Mark Lux MD [address] [place] [address] JOINT PAIN-PELVIS (Primary Dx) Social History Tobacco Use Types Packs/Day Years Used Date Smoking Tobacco: Never Assessed Sex and Gender Information Value Date Recorded Sex Assigned at Not on file 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
--- OUTSIDE RECORDS SUMMARY | 2025-02-12 13:28 | XMS_ITS | Encounter Summary ---
Author Organization [facility] Address [address] [facility] [address] Care Team Providers Care Cotton Header Name Role Phone Srinivasa Anderson MD Primary Care Provider [phone] Encounter Details Date Type Department Care Team (Latest Contact Info) Description 11/06/2002 Outpatient Historical 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
--- OUTSIDE RECORDS SUMMARY | 2025-02-12 13:28 | XMS_ITS | Encounter Summary ---
Author Organization [facility] Address [address] [place] [address] Care Team Providers Care Special Duty Nurse Name Role Phone Srinivasa Anderson MD Primary Care Provider Encounter Details Date Type Department Care Team (Latest Contact Info) Description 08/19/2001 Outpatient Historical [facility] Dermatology- 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
--- OUTSIDE RECORDS SUMMARY | 2025-02-12 13:28 | XMS_ITS | Encounter Summary ---
Author Organization [facility] Address [address] [place] [address] Care Team Providers Care Chiropractor Sole Practitioner Name Role Phone Srinivasa Anderson MD Primary Care Provider [phone] Encounter Details Date Type Department Care Team (Latest Contact Info) Description 09/01/2002 Outpatient Historical [facility] Imaging Services [address] 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
--- OUTSIDE RECORDS SUMMARY | 2025-02-12 13:28 | XMS_ITS | Encounter Summary ---
Author Organization [facility] Address [address] [place] [address] Care Team Providers Care Hyperbaric Tech Name Role Phone Srinivasa Anderson MD Primary Care Provider Encounter Details Date Type Department Care Team (Latest Contact Info) Description 08/04/2002 Outpatient Historical [facility] Int [facility] [place] [place] [address] Mark Lux MD [address] [place] [address] JOINT PAIN-PELVIS (Primary Dx) Social History Tobacco Use Types Packs/Day Years Used Date Smoking Tobacco: Never Assessed Sex and Gender Information Value Date Recorded Sex Assigned at Not on file 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
--- OUTSIDE RECORDS SUMMARY | 2025-02-12 13:28 | XMS_ITS | Encounter Summary ---
Author Organization [facility] Address [address] [place] [address] Care Team Providers Care Travel Professional Name Role Phone Srinivasa Anderson MD Primary Care Provider [phone] Encounter Details Date Type Department Care Team (Latest Contact Info) Description 12/02/2001 Outpatient Historical [facility] Int [facility] [place] [place] [address] Mark Lux MD [address] [place] [address] Pure hypercholesterolem (Primary Dx); HYPERTENSION NOS Social History Tobacco Use Types Packs/Day Years Used Date Smoking Tobacco: Never Assessed Sex and Gender Information Value Date Recorded Sex Assigned at Not on file 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
--- OUTSIDE RECORDS SUMMARY | 2025-02-12 13:28 | XMS_ITS | Encounter Summary ---
Author Organization [facility] Address [address] [place] [address] Care Team Providers Care Curator Of Manuscripts Name Role Phone Srinivasa Anderson MD Primary Care Provider [phone] Encounter Details Date Type Department Care Team (Latest Contact Info) Description 08/30/2003 Outpatient Historical [facility] Int [facility] [place] [place] [address] Mark Lux MD [address] [place] [address] ABDOMINAL PAIN UNSPEC SITE (Primary Dx) Social History Tobacco Use Types Packs/Day Years Used Date Smoking Tobacco: Never Assessed Sex and Gender Information Value Date Recorded Sex Assigned at Not on file 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
--- OUTSIDE RECORDS SUMMARY | 2025-02-12 13:28 | XMS_ITS | Encounter Summary ---
Author Organization [facility] Address [address] [place] [address] Care Team Providers Care Commercial Technician Name Role Phone Srinivasa Anderson MD Primary Care Provider [phone] Encounter Details Date Type Department Care Team (Latest Contact Info) Description 11/10/2003 Outpatient Historical [facility] Int 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
--- OUTSIDE RECORDS SUMMARY | 2025-02-12 13:28 | XMS_ITS | Encounter Summary ---
Author Organization [facility] Address [address] [place] [address] Care Team Providers Care Real Estate Agent/Broker Name Role Phone Srinivasa Anderson MD Primary Care Provider [phone] Encounter Details Date Type Department Care Team (Latest Contact Info) Description 05/07/2003 Outpatient Historical [facility] Int [facility] [place] [place] [address] Mark Lux MD [address] [place] [address] HYPERTENSION NOS (Primary Dx); Pure hypercholesterolem Social History Tobacco Use Types Packs/Day Years Used Date Smoking Tobacco: Never Assessed Sex and Gender Information Value Date Recorded Sex Assigned at Not on file 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
--- OUTSIDE RECORDS SUMMARY | 2025-02-12 13:28 | XMS_ITS | Encounter Summary ---
Author Organization [facility] Address [address] [facility] [address] Care Team Providers Care Explosives Detonator Name Role Phone Srinivasa Anderson MD Primary Care Provider [phone] Encounter Details Date Type Department Care Team (Latest Contact Info) Description 10/24/2001 Outpatient Historical [facility] [place] [place] [address] Mark Lux MD [address] [place] [address] HYPERTENSION NOS (Primary Dx); Pure hypercholesterolem; OSTEOARTHROS NOS-UNSPEC Social History Tobacco Use Types Packs/Day Years Used Date Smoking Tobacco: Never Assessed Sex and Gender Information Value Date Recorded Sex Assigned at Not on file 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 Sex Male 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
--- OUTSIDE RECORDS SUMMARY | 2025-02-12 13:29 | XMS_ITS | Encounter Summary ---
Author Organization [facility] Address [address] [place] [address] Care Team Providers Care State Pilot Name Role Phone Srinivasa Anderson MD Primary Care Provider [phone] Encounter Details Date Type Department Care Team (Latest Contact Info) Description 06/29/1999 Outpatient Historical [facility] Dermatology- [facility] [place] [address] [place] [address] Zoltan Mahoney MD NO ADDRESS ON FILE Actinic keratosis (Primary Dx); Malig amado skin arm; Inflamed seborr keratos Social History Tobacco Use Types Packs/Day Years Used Date Smoking Tobacco: Never Assessed Sex and Gender Information Value Date Recorded Sex Assigned at Not on file 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
--- OUTSIDE RECORDS SUMMARY | 2025-02-12 13:29 | XMS_ITS | Encounter Summary ---
Author Organization [facility] Address [address] [facility] [place] [address] Care Team Providers Care Residential Sales Name Role Phone Srinivasa Anderson MD Primary Care Provider [phone] Encounter Details Date Type Department Care Team (Late st Contact Info) Description 12/30/2000 Outpatient Historical [facility] Yfn Hahn MD [address] [place], [place] [id number] Other pulmonary embolism and infarction (CMS/HCC) (Primary Dx) Social History Tobacco Use Types Packs/Day Years Used Date Smoking Tobacco: Never Assessed Sex and Gender Information Value Date Recorded Sex Assigned at Not on file Legal Sex Male 3:08 AM CARE ASST Gender Identity Not on file Sexual Orientation Not on file documented as of this encounter Plan of Treatment Not on file documented as of this encounter Visit Diagnoses Diagnosis Other pulmonary embolism and infarction (CMS/HCC)- Primary Other pulmonary embolism and infarction documented in this encounter Care Teams Residential Sales Relationship Specialty Start Date End Date Srinivasa Anderson MD [address] [place] [address] PCP - General 07/18/04 documented as of this encounter
--- OUTSIDE RECORDS SUMMARY | 2025-02-12 13:29 | XMS_ITS | Encounter Summary ---
Author Organization [facility] Address [address] [place] [address] Care Team Providers Care Seed Technician Name Role Phone Srinivasa Anderson MD Primary Care Provider [phone] Encounter Details Date Type Department Care Team (Latest Contact Info) Description 02/18/2001 Outpatient Historical [facility]- [facility] [place] [address] [place] [address] Zoltan Mahoney MD NO ADDRESS ON FILE PERS HX SKIN MALIGNANCY NEC (Primary Dx); SEBORRHEIC KERATOSIS NOS; ACTINIC KERATOSIS Social History Tobacco Use Types Packs/Day Years Used Date Smoking Tobacco: Never Assessed Sex and Gender Information Value Date Recorded Sex Assigned at Not on file 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
--- OUTSIDE RECORDS SUMMARY | 2025-02-12 13:29 | XMS_ITS | Encounter Summary ---
Author Organization [facility] Address [address] [place] [address] Care Team Providers Care Laser Beam Trim Operator Name Role Phone Srinivasa Anderson MD Primary Care Provider [phone] Encounter Details Date Type Department Care Team (Latest Contact Info) Description 01/23/1999 Outpatient Historical [facility] [address] [place] [address] Zoltan Mahoney MD NO ADDRESS ON FILE 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 (Primary Dx); Other seborrheic keratosis Social History Tobacco Use Types Packs/Day Years Used Date Smoking Tobacco: Never Assessed Sex and Gender Information Value Date Recorded Sex Assigned at Not on file Legal Sex Male 3:08 AM RESIDENT CARE 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
--- OUTSIDE RECORDS SUMMARY | 2025-02-12 13:29 | XMS_ITS | Encounter Summary ---
Author Organization [facility] Address [address] 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
--- OUTSIDE RECORDS SUMMARY | 2025-02-12 13:29 | XMS_ITS | Encounter Summary ---
Author Organization [facility] Address [address] [facility] [place] [address] Care Team Providers Care Rock Picker Name Role Phone Srinivasa Anderson MD Primary Care Provider [phone] Encounter Details Date Type Department Care Team (Latest Contact Info) Description 09/11/2002 Outpatient Historical [facility] Dermatology- [facility] [place] [address] [place] [phone] Zoltan Mahoney MD NO ADDRESS ON FILE ACTINIC KERATOSIS (Primary Dx); Malig amado scalp/skin neck; SEBORRHEIC KERATOSIS NOS Social History Tobacco Use Types Packs/Day Years Used Date Smoking Tobacco: Never Assessed Sex and Gender Information Value Date Recorded Sex Assigned at Not on file 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
--- OUTSIDE RECORDS SUMMARY | 2025-02-12 13:29 | XMS_ITS | Encounter Summary ---
Author Organization [facility] Address [address] [place] [address] Care Team Providers Care Recreation Worker Name Role Phone Srinivasa Anderson MD Primary Care Provider [phone] Encounter Details Date Type Department Care Team (Late st Contact Info) Description 11/27/2000 Outpatient Historical [facility] Yfn Hahn MD [address] [place], [place] [id number] Other pulmonary embolism and infarction (CMS/HCC) (Primary Dx) Social History Tobacco Use Types Packs/Day Years Used Date Smoking Tobacco: Never Assessed Sex and Gender Information Value Date Recorded Sex Assigned at Not on file 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
--- OUTSIDE RECORDS SUMMARY | 2025-02-12 13:29 | XMS_ITS | Encounter Summary ---
Author Organization [facility] Address [address] [place] [address] Care Team Providers Care Molasses And Caramel Operator Name Role Phone Srinivasa Anderson MD Primary Care Provider [phone] Encounter Details Date Type Department Care Team (Latest Contact Info) Description 09/08/2002 Outpatient Historical [facility] Robbi Post MD [address] [place] [phone] Spondylolisthesis (Primary Dx); JOINT PAIN-PELVIS; LUMBAGO Social History Tobacco Use Types Packs/Day Years Used Date Smoking Tobacco: Never Assessed Sex and Gender Information Value Date Recorded Sex Assigned at Not on file 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
--- OUTSIDE RECORDS SUMMARY | 2025-02-12 13:29 | XMS_ITS | Encounter Summary ---
Author Organization [facility] Address [address] [facility] [place] [address] Care Team Providers Care Sample Coordinator Name Role Phone Srinivasa Anderson MD Primary Care Provider [phone] Encounter Details Date Type Department Care Team (Latest Contact Info) Description 03/27/2005 Outpatient Historical [facility] Dermatology- [facility] [place] [address] [place] [address] Zoltan Mahoney MD NO ADDRESS ON FILE ACTINIC KERATOSIS (Primary Dx); Inflamed seborr keratos; SEBORRHEIC KERATOSIS NOS; Malig amado skin arm Social History Tobacco Use Types Packs/Day Years Used Date Smoking Tobacco: Never Assessed Sex and Gender Information Value Date Recorded Sex Assigned at Not on file 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 Gender Identity Not on file Sexual Orientation Not on file documented as of this encounter Plan of Treatment Not on file documented as of this encounter Visit Diagnoses Diagnosis Actinic keratosis- Primary Inflamed seborr keratos Inflamed seborrheic keratosis Other seborrheic keratosis Malig amado skin arm 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
--- OUTSIDE RECORDS SUMMARY | 2025-02-12 13:29 | XMS_ITS | Encounter Summary ---
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 Social History Tobacco Use Types Packs/Day Years Used Date Smoking Tobacco: Never Assessed Sex and Gender Information Value Date Recorded Sex Assigned at Not on file Legal Sex Male 3:08 AM BUSINESS 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
--- OUTSIDE RECORDS SUMMARY | 2025-02-12 13:29 | XMS_ITS | Encounter Summary ---
Author Organization [facility] Address [address] [place] [address] Care Team Providers Care Coater Brake Linings Name Role Phone Srinivasa Anderson MD Primary Care Provider [phone] Encounter Details Date Type Department Care Team (Latest Contact Info) Description 05/08/2001 Outpatient Historical 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 Gender Identity Not on file Sexual Orientation Not on file documented as of this encounter Plan of Treatment Not on file documented as of this encounter Visit Diagnoses Diagnosis Unspecified essential hypertension- Primary termite helper (current) use of anticoagulants Long-term (current) use of anticoagulants Iatrogenic pulmonary embolism and infarction (CMS/HCC) Iatrogenic pulmonary embolism and infarction documented in this encounter Care Teams Coater Brake Linings Relationship Specialty Start Date End Date Srinivasa Anderson MD [address] [place] [address] PCP - General 07/18/04 documented as of this encounter
--- OUTSIDE RECORDS SUMMARY | 2025-02-12 13:29 | XMS_ITS | Encounter Summary ---
Author Organization [facility] Address [address] [facility] [place] [address] Care Team Providers Care Tube Laser Operator Name Role Phone Srinivasa Anderson MD Primary Care Provider [phone] Encounter Details Date Type Department Care Team (Latest Contact Info) Description 05/30/1998 Outpatient Historical [facility] Dermatology- [facility] [place] [address] [place] [address] Zoltan Mahoney MD NO ADDRESS ON FILE Other seborrheic keratosis (Primary Dx) Social History Tobacco Use Types Packs/Day Years Used Date Smoking Tobacco: Never Assessed Sex and Gender Information Value Date Recorded Sex Assigned at Not on file 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
--- OUTSIDE RECORDS SUMMARY | 2025-02-12 13:29 | XMS_ITS | Encounter Summary ---
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 Social History Tobacco Use Types Packs/Day Years Used Date Smoking Tobacco: Never Assessed Sex and Gender Information Value Date Recorded Sex Assigned at Not on file 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
--- OUTSIDE RECORDS SUMMARY | 2025-02-12 13:29 | XMS_ITS | Encounter Summary ---
Author Organization [facility] Address [address] [place] [address] Care Team Providers Care Meat Cooler Name Role Phone Srinivasa Anderson MD Primary Care Provider [phone] Encounter Details Date Type Department Care Team (Late st Contact Info) Description 11/05/2000 Outpatient Historical [facility] [place] [place] [address] Yfn Hahn MD [address] [place] [address] Allergic rhinitis, cause unspecified (Primary Dx); Unspecified essential hypertension Social History Tobacco Use Types Packs/Day Years Used Date Smoking Tobacco: Never Assessed Sex and Gender Information Value Date Recorded Sex Assigned at Not on file 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
--- OUTSIDE RECORDS SUMMARY | 2025-02-12 13:29 | XMS_ITS | Encounter Summary ---
Author Organization [facility] Address [address] [place] [address] Care Team Providers Care Delivery Supervisor Name Role Phone Srinivasa Anderson MD Primary Care Provider [phone] Encounter Details Date Type Department Care Team (Latest Contact Info) Description 04/18/2005 Outpatient Historical [facility] [place] [place] [address] Srinivasa Anderson MD [address] [place] [address] TESTICULAR HYPOFUNC NEC (Primary Dx) Social History Tobacco Use Types Packs/Day Years Used Date Smoking Tobacco: Never Assessed Sex and Gender Information Value Date Recorded Sex Assigned at Not on file 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
--- OUTSIDE RECORDS SUMMARY | 2025-02-12 13:29 | XMS_ITS | Encounter Summary ---
Author Organization [facility] Address [address] [facility] [place] [address] Care Team Providers Care Motors And Controls Tester Name Role Phone Srinivasa Anderson MD Primary Care Provider [phone] Encounter Details Date Type Department Care Team (Late st Contact Info) Description 02/17/2001 Outpatient Historical [facility] [address] [place] [address] Yfn Hahn MD [address] [place] [address] COUGH (Primary Dx); RESPIRATORY ABNORM NEC Social History Tobacco Use Types Packs/Day Years Used Date Smoking Tobacco: Never Assessed Sex and Gender Information Value Date Recorded Sex Assigned at Not on file 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
--- OUTSIDE RECORDS SUMMARY | 2025-02-12 13:29 | XMS_ITS | Encounter Summary ---
Author Organization [facility] Address [address] [facility] [place] [address] Care Team Providers Care Survey Operations Director Name Role Phone Srinivasa Anderson MD Primary Care Provider Encounter Details Date Type Department Care Team (Late st Contact Info) Description 10/21/2000 Outpatient Historical [facility] Yfn Hahn MD [address] [place], [place] [id number] Unspecified essential hypertension (Primary Dx); Other vitamin B12 deficiency anemia; Routine medical exam; Special screening for malignant neoplasm of prostate; Femoral vein phlebitis Social History Tobacco Use Types Packs/Day Years Used Date Smoking Tobacco: Never Assessed Sex and Gender Information Value Date Recorded Sex Assigned at Not on file 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 Gender Identity Not on file Sexual Orientation Not on file documented as of this encounter Plan of Treatment Not on file documented as of this encounter Visit Diagnoses Diagnosis Unspecified essential hypertension- Primary Other vitamin B12 deficiency anemia Routine medical exam Routine general medical examination at a health care facility Special screening for malignant neoplasm of prostate Femoral vein phlebitis Phlebitis and thrombophlebitis of femoral vein (deep) (superficial) documented in this encounter Care Teams Survey Operations Director Relationship Specialty Start Date End Date Srinivasa Anderson MD [address] [phone] PCP - General 07/18/04 documented as of this encounter
--- OUTSIDE RECORDS SUMMARY | 2025-02-12 13:29 | XMS_ITS | Encounter Summary ---
Author Organization [facility] Address [address] [facility] [place] [facility] [place] [address] Care Team Providers Care Project Engineer Chemicals Name Role Phone Srinivasa Anderson MD Primary Care Provider [phone] Encounter Details Date Type Department Care Team (Late st Contact Info) Description 02/17/2001 Outpatient 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
--- OUTSIDE RECORDS SUMMARY | 2025-02-12 13:29 | XMS_ITS | Encounter Summary ---
Author Organization [facility] Address [address] [place] [facility] [place] [address] Care Team Providers Care Coach Operator Name Role Phone Srinivasa Anderson MD Primary Care Provider [phone] Encounter Details Date Type Department Care Team (Latest Contact Info) Description 05/22/2005 Outpatient Historical [facility] [place] [place] [address] Srinivasa Anderson MD [address] [place] [address] TESTICULAR HYPOFUNC NEC (Primary Dx); FOLLOW-UP EXAM NOS Social History Tobacco Use Types Packs/Day Years Used Date Smoking Tobacco: Never Assessed Sex and Gender Information Value Date Recorded Sex Assigned at Not on file 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
--- OUTSIDE RECORDS SUMMARY | 2025-02-12 13:29 | XMS_ITS | Encounter Summary ---
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 (Primary Dx); Inflamed seborr keratos; Other seborrheic keratosis Social History Tobacco Use Types Packs/Day Years Used Date Smoking Tobacco: Never Assessed Sex and Gender Information Value Date Recorded Sex Assigned at Not on file 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 Gender Identity Not on file Sexual Orientation Not on file documented as of this encounter Plan of Treatment Not on file documented as of this encounter Visit Diagnoses Diagnosis 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
--- OUTSIDE RECORDS SUMMARY | 2025-02-12 13:29 | XMS_ITS | Encounter Summary ---
Author Organization [facility] Address [address] [place] [address] Care Team Providers Care Credit Department Manager Name Role Phone Srinivasa Anderson MD Primary Care Provider [phone] Encounter Details Date Type Department Care Team (Late st Contact Info) Description 10/21/2000 Outpatient Historical [facility] Int [facility] [place] [place] [address] Yfn Hahn MD [address] [place] [address] Routine medical exam (Primary Dx) Social History Tobacco Use Types Packs/Day Years Used Date Smoking Tobacco: Never Assessed Sex and Gender Information Value Date Recorded Sex Assigned at Not on file 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
--- OUTSIDE RECORDS SUMMARY | 2025-02-12 13:30 | XMS_ITS | Encounter Summary ---
Author Organization [facility] Address [address] [facility] [place] [address] Care Team Providers Care Commutator Assembler Name Role Phone Srinivasa Anderson MD Primary Care Provider [phone] Encounter Details Date Type Department Care Team (Latest Contact Info) Description 2005 Outpatient Historical [facility] [place] [place] [address] Srinivasa Anderson MD [address] [place] [address] Other Testicular Hypofunction (Primary Dx) Social History Tobacco Use Types Packs/Day Years Used Date Smoking Tobacco: Never Assessed Sex and Gender Information Value Date Recorded Sex Assigned at Not on file 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
--- OUTSIDE RECORDS SUMMARY | 2025-02-12 13:30 | XMS_ITS | Encounter Summary ---
Author Organization [facility] Address [address] [place] [address] Care Team Providers Care Bioinformatics Software Engineer Name Role Phone Srinivasa Anderson MD Primary Care Provider [phone] Encounter Details Date Type Department Care Team (Latest Contact Info) Description 03/27/[address] [facility] [address] 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
--- OUTSIDE RECORDS SUMMARY | 2025-02-12 13:30 | XMS_ITS | Encounter Summary ---
Author Organization [facility] Address [address] [place] [address] Care Team Providers Care Hard Metals Hand Engraver Name Role Phone Srinivasa Anderson MD Primary Care Provider [phone] Encounter Details Date Type Department Care Team (Latest Contact Info) Description 06/13/2005 Outpatient Historical [facility] [place] [place] [address] Srinivasa Anderson MD [address] [place] [address] TESTICULAR HYPOFUNC NEC (Primary Dx) Social History Tobacco Use Types Packs/Day Years Used Date Smoking Tobacco: Never Assessed Sex and Gender Information Value Date Recorded Sex Assigned at Not on file 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
--- OUTSIDE RECORDS SUMMARY | 2025-02-12 13:30 | XMS_ITS | Encounter Summary ---
Author Organization [facility] Address [address] [address] Care Team Providers Care Embedded Systems Software Engineer Name Role Phone Srinivasa Anderson MD Primary Care Provider [phone] Encounter Details Date Type Department Care Team (Latest Contact Info) Description 03/09/2005 Outpatient Historical [facility] [place] [place] [address] Srinivasa Anderson MD [address] [place] [address] TESTICULAR HYPOFUNC NEC (Primary Dx) Social History Tobacco Use Types Packs/Day Years Used Date Smoking Tobacco: Never Assessed Sex and Gender Information Value Date Recorded Sex Assigned at Not on file 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
--- OUTSIDE RECORDS SUMMARY | 2025-02-12 13:30 | XMS_ITS | Encounter Summary ---
Author Organization [facility] Address [address] [place] [address] Care Team Providers Care Physical Therapy Director Name Role Phone Srinivasa Anderson MD Primary Care Provider [phone] Encounter Details Date Type Department Care Team (Latest Contact Info) Description 02/14/2005 Outpatient Historical [facility] [address] [place] [address] Shelia Alberto, RN NO ADDRESS ON FILE SCREENING-CARDIOVAS C NEC (Primary Dx) Social History Tobacco Use Types Packs/Day Years Used Date Smoking Tobacco: Never Assessed Sex and Gender Information Value Date Recorded Sex Assigned at Not on file 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
--- OUTSIDE RECORDS SUMMARY | 2025-02-12 13:30 | XMS_ITS | Encounter Summary ---
Author Organization [facility] Address [address] [facility] [place] [address] Care Team Providers Care Furnace Builder Name Role Phone Srinivasa Anderson MD Primary Care Provider [phone] Encounter Details Date Type Department Care Team (Latest Contact Info) Description 02/14/2005 Outpatient Historical [facility] [place] [place] [address] Srinivasa Anderson MD [address] [place] [address] TESTICULAR HYPOFUNC NEC (Primary Dx); Vaccine for influenza Social History Tobacco Use Types Packs/Day Years Used Date Smoking Tobacco: Never Assessed Sex and Gender Information Value Date Recorded Sex Assigned at Not on file 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
[2025-02-12 13:53] LABS: Hematocrit 36.6 % (37-53); Hemoglobin 11.10 g/dL (11.27-16.99); Mean Corpuscular HGB Conc 30.3 g/dL (30-55); Mean Corpuscular Hemoglobin 28.5 pg (27-33); Mean Corpuscular Volume 93.8 fl (82-101); Nucleated Red Blood Cells % 0 %; Platelet Count 157 10^3/cmm (157-399); Red Blood Count 3.90 10^6/uL (3.85-5.65); White Blood Count 8.17 10^3/uL (3.29-11.43)
[2025-02-12 14:12] LABS: Alanine Aminotransferase 35 U/L (0-41); Albumin Level 4.0 g/dL (3.5-5.2); Alkaline Phosphatase 118 U/L (40-130); Anion Gap 19.3 (5-19); Aspartate Amino Transferase 26 U/L (0-40); Blood Urea Nitrogen 53 mg/dL (8-23); Calcium 8.9 mg/dL (8.5-10.5); Carbon Dioxide 21 mmol/L (22-29); Chloride 102 mmol/L (98-107); Creatinine Clr Calc Pharmacy 47.4687; Globulin 4.1 g/dL (1.3-4.6); Glucose 141 mg/dL (65-115); Lipase 45 U/L (13-60); Osmolality Calculated 303 mOsm/kg (285-295); Potassium 4.3 mmol/L (3.5-5.1); Sodium 138 mmol/L (136-145); Total Protein 8.1 g/dL (6.6-8.7)
--- NOTE | 2025-02-12 15:39 | W.ED.SKABFB ---
HPI - Skin/Abscess/Foreign Bdy General: Chief complaint: Skin/Abscess/Foreign Body Stated complaint: Rash,Swelling ABD Time Seen by Provider: 02/12/25 15:14 History of Present Illness: Patient is a 89-year-old gentleman with history of Permanent atrial fibrillation, Watchman procedure for AC, pacemaker, aortic valve repair, presents to the emergency room due to itching, red spots throughout torso, extremities. Patient has seen: Dermatology, walk-in clinic Patient is awaiting: To establish care locally, rheumatology. He had a [facility] ELINOR positive in January. He has received multiple blood draws with [facility] that patient's has on her portal on her phone. Associated symptoms: Deny chills, fever(s), nausea or vomiting Related Data Home Medications ?Medication ?Instructions ?Recorded ?Confirmed acetaminophen 325 mg tablet 325 mg PO QID PRN Pain 01/24/24 02/12/25 (Tylenol) fluticasone propionate 50 1 spray intranasal BID PRN 01/24/24 02/12/25 mcg/actuation nasal allergies spray,suspension (Flonase Allergy Relief) losartan 100 mg tablet 50 mg PO DAILY 01/24/24 02/12/25 prednisone 5 mg tablet 5 mg PO DAILY 01/24/24 02/12/25 tamsulosin 0.4 mg capsule 0.4 mg PO DAILY 01/24/24 02/12/25 trazodone 100 mg tablet 100 mg PO BEDTIME PRN sleep 01/24/24 02/12/25 amlodipine 10 mg tablet 10 mg PO DAILY 03/17/24 02/12/25 guaifenesin 600 mg tablet, 600 mg PO BID PRN Congestion 09/02/24 02/12/25 extended release 12 hr (Mucinex) aspirin 81 mg tablet,delayed 81 mg PO DAILY 12/09/24 02/12/25 release doxycycline hyclate 100 mg capsule 100 mg PO BID x10d 02/12/25 02/12/25 neomycin 3.5 mg/g-polymyxin B See Rx Instructions .Route .COMPLEX 02/12/25 02/12/25 10,000 unit/g-dexameth 0.1 % eye oint prednisone 20 mg tablet 20 mg PO DAILY 02/12/25 02/12/25 Previous Rx's ?Medication ?Instructions ?Recorded blood sugar diagnostic (Contour #50 ea 05/18/22 Next Test Strips) pregabalin 75 mg capsule 75 mg PO BID #60 caps 12/09/24 gabapentin 300 mg capsule 300 mg PO TID pain #60 caps 01/08/25 valacyclovir 1 gram tablet 1,000 mg PO Q8H 10 days #30 tabs 01/08/25 clobetasol 0.05 % topical cream 1 applic topical BID 2 weeks #45 01/16/25 grams methylprednisolone 4 mg tablets in See Rx Instructions PO .COMPLEX 02/12/25 a dose pack (Medrol (Sarkis)) #21 ea tadalafil 5 mg tablet (Cialis) 5 mg PO DAILY #90 tabs 02/12/25 Allergies Allergy/AdvReac Type Severity Reaction Status Date / Time No Known Allergies Allergy Verified 02/12/25 13:30 Review of Systems General: Reports: 10 or more systems reviewed and unremarkable except in HPI and below Const: Denies: fever(s), chills or fatigue Card: Denies: chest pain, palpitations or swelling of feet/ankles Resp: Denies: dyspnea or productive cough GI: Denies: abdominal pain, nausea, vomiting or diarrhea : Denies: flank pain Musc: Denies: extremity swelling Skin/Breast: Reports: rash, pruritus and skin tenderness Neuro: Denies: headache(s), numbness in extremities, weakness in extremities or confusion Psych: Denies: anxiety or depression PFSH ED PFSH: Medical History (Updated 02/12/25 @ 16:50 by NAI Villalta) History of transcatheter aortic valve replacement (TAVR) History of colon polyps Impairment of balance Sleeplessness Left inguinal hernia Urinary hesitancy Nocturia more than twice per night Change in stool habits Abdominal discomfort Hx of basal cell carcinoma Allergic rhinitis Chronic neck pain Type 2 diabetes mellitus Diet managed Chronic anticoagulation INR goal 2-3 Hx pulmonary embolism Hypertension Surgical History History of inguinal hernia repair History of mitral valve repair History of colonoscopy History of esophagogastroduodenoscopy Hx of cataract surgery Family History Other CAD (coronary artery disease) Cancer Diabetes Heart attack Hyperlipidemia Hypertension Rheumatoid arthritis Stroke Denies family history of Lupus Chronic kidney disease (CKD) Social History (Reviewed 01/16/25 @ 11:38 by DEEPTI Kumar Smoking and tobacco/nicotine status: never used tobacco/nicotine Quit status (tobacco/nicotine): has quit using Former quit date comment: over 40 years ago Alcohol intake: current Alcohol intake frequency: few times a week Substance/Drug Use: never Physical Exam Const: COMMON NORMALS: no acute distress, average body habitus and patient oriented x3 HENMT: COMMON NORMALS: normocephalic and atraumatic HEAD & SCALP: normocephalic and atraumatic Neck/C-Spine: COMMON NORMALS: full ROM, no lymphadenopathy and supple Lymph: LYMPHATIC: no lymphadenopathy noted Chest: COMMONS NORMALS: normal inspection of the chest and normal palpation of entire chest wall Resp: COMMON NORMALS: normal respiratory effort, No retractions and clear to auscultation bilaterally AUSCULTATION: clear to auscultation bilaterally Cardio: OTHER: Irregularly irregular, systolic ejection murmur GI: COMMON NORMALS: Normal to inspection, nondistended, normoactive bowel sounds present, Soft to palpation, non-tender and No hepatosplenomegaly present PALPATION: Yes Soft to palpation and Yes No hepatosplenomegaly present : COMMON NORMALS: Yes no CVA tenderness BLADDER/KIDNEY EXAM: Yes no CVA tenderness Back/Pelvis: COMMON NORMALS: no CVA tenderness and thoracic and lumbar spine normal to inspection Extremity: COMMON NORMALS: full ROM and capillary refill normal NARRATIVE EXTREMITY EXAM: See skin exam Neuro: COMMON NORMALS: patient oriented x3 Skin: NARRATIVE SKIN EXAM: Generalized pruritus to chest entire torso/extremities upper and lower. There is association dermal lymphedematous papules, mac papules, various sizes. Course Vital Signs: Vital signs: Vital Signs Temperature 97.8 F 02/12/25 13:24 Pulse Rate 60 02/12/25 17:06 Respiratory Rate 16 02/12/25 13:24 Blood Pressure 142/71 02/12/25 17:06 Pulse Oximetry 95 02/12/25 17:06 Oxygen Delivery Me thod Room Air 02/12/25 16:15 MDM - Skin/Abscess/Foreign Bdy Medicial Decision Making Patient is a 89-year-old man that comes to the ER with ongoing itching. He is frustrated. His prednisone dosage has finished over 4 days ago. He has bleeding under his skin from the itching. His oral mucosa is not involved thus ruling out SJS/TEN/TSS. He does not clearly have an erythema multiforme, and he actually appears to have association of allergic component given his pruritus. As well, he is on multiple medications that we have worked all the way through and checked all the side effects. I have checked side effect profile on all of them, and most likely culprits have been listed in their instructions below. I have spent over 45 minutes at bedside with this patient and his trying to help him with this allergic reaction component. I have recommended that he pull away the histamine response by going off label on antihistamine twice daily. I have disclosed this is an off-label acceptable standard of care for allergic component as well as blocking H2, with Pepcid/famotidine. Patient is understandably frustrated over his 6-8 weeks of issues. They have seen dermatology, and I have spent the time to review their note. The pathology is noted as dermal hypersensitive reaction on the periumbilical skin. I have seen the area of periumbilical skin where the biopsy was taken. I did also consider T-cell lymphoma that causes pruritus, and peeling. This does not appear to be a component in the differential, however I will outline her that should be considered by a specialist such as a repeat biopsy. I will refer this however to rheumatology. Additionally, red quiroz is his ELINOR that is positive, with the [employer] system. Autoimmune disorders are well-known to cause dermal hypersensitivity reactions as well. I believe internal medicine/rheumatology would be the best to work through all these issues that we have discussed, and the long list of directions and concerns and plan of care that we have worked through today. As well as all these challenges, the patient is trying to establish with a primary care physician in this area, and is having difficulty where he does not have an appointment for 4 months. He is covering this with the [employer] system and has a follow-up on Saturday that he states he does not want to disappoint and just needs to be somewhere. I have advised him as noted in the directions of the doctor he is trying to establish with his Dr. Fu, to call their office for ER follow-up, which may help with this process as well. As far as all of the decision making, we have done this together collaborating with the patient. I have discussed concerns of his blood pressure going up with stopping the amlodipine as this may be a culprit, and since patient has a pacemaker, we are obtaining [employer] evaluation to see if he has a backup rate. All of this has been explained in layman's terms and written out and the directions below to the patient and his . They state understanding and appreciation. Lab Data 02/12/25 13:44 02/12/25 13:44 Laboratory Results WBC 8.17 10^3/uL (3.29-11.43) 02/12/25 13:44 RBC 3.90 10^6/uL (3.85-5.65) 02/12/25 13:44 Hgb 11.10 g/dL (11.27-16.99) L 02/12/25 13:44 Hct 36.6 % (37-53) L 02/12/25 13:44 MCV 93.8 fl (82-101) 02/12/25 13:44 MCH 28.5 pg (27-33) 02/12/25 13:44 MCHC 30.3 g/dL (30-55) 02/12/25 13:44 RDW 18.5 % (12.1-15.1) H 02/12/25 13:44 Plt Count 157 10^3/cmm (157-399) 02/12/25 13:44 MPV 11.8 fL (7.4-10.4) H 02/12/25 13:44 Neut % (Auto) 76.6 % 02/12/25 13:44 Lymph % (Auto) 10.5 % 02/12/25 13:44 Yancey % (Auto) 8.8 % 02/12/25 13:44 Eos % (Auto) 0.5 % 02/12/25 13:44 Baso % (Auto) 0.5 % 02/12/25 13:44 Neut # (Auto) 6.26 10^3/uL (1.8-7.7) 02/12/25 13:44 Lymph # (Auto) 0.9 10^3/uL (0.8-4.8) 02/12/25 13:44 Yancey # (Auto) 0.7 10^3/uL (0.2-0.9) 02/12/25 13:44 Eos # (Auto) 0.0 10^3/uL (0.0-0.8) 02/12/25 13:44 Baso # (Auto) 0.0 10^3/uL (0.0-0.1) 02/12/25 13:44 Nucleated RBC % (auto) 0 % 02/12/25 13:44 Nucleated RBCs # 0.0 /100WBC 02/12/25 13:44 Sodium 138 mmol/L (136-145) 02/12/25 13:44 Potassium 4.3 mmol/L (3.5-5.1) 02/12/25 13:44 Chloride 102 mmol/L (98-107) 02/12/25 13:44 Carbon Dioxide 21 mmol/L (22-29) L 02/12/25 13:44 Anion Gap 19.3 (5-19) H 02/12/25 13:44 BUN 53 mg/dL (8-23) H 02/12/25 13:44 Creatinine 1.3 mg/dL (0.7-1.2) H 02/12/25 13:44 GFR Calculation Not Reportable 02/12/25 13:44 Glucose 141 mg/dL (65-115) H 02/12/25 13:44 Calculated Osmolality 303 mOsm/kg (285-295) H 02/12/25 13:44 Calcium 8.9 mg/dL (8.5-10.5) 02/12/25 13:44 Total Bilirubin 0.6 mg/dL (0.15-1.2) 02/12/25 13:44 AST 26 U/L (0-40) 02/12/25 13:44 ALT 35 U/L (0-41) 02/12/25 13:44 Alkaline Phosphatase 118 U/L (40-130) 02/12/25 13:44 Total Protein 8.1 g/dL (6.6-8.7) 02/12/25 13:44 Albumin 4.0 g/dL (3.5-5.2) 02/12/25 13:44 Globulin 4.1 g/dL (1.3-4.6) 02/12/25 13:44 Lipase 45 U/L (13-60) 02/12/25 13:44 Urine Color Yellow (Yellow) 02/12/25 16:14 Urine Appearance Clear (CLEAR) 02/12/25 16:14 Urine pH 5.5 (5-7) 02/12/25 16:14 Ur Specific [place] 1.015 (1.005-1.030) 02/12/25 16:14 Urine Protein Negative (Negative) 02/12/25 16:14 Urine Glucose (UA) Negative (Normal) 02/12/25 16:14 Urine Ketones Negative (Negative) 02/12/25 16:14 Urine Blood Negative (Negative) 02/12/25 16:14 Urine Nitrate Negative (Negative) 02/12/25 16:14 Urine Bilirubin Negative (Negative) 02/12/25 16:14 Urine Urobilinogen 0.2 mg/dL (Negative) 02/12/25 16:14 Ur Leukocyte Esterase Negative (Negative) 02/12/25 16:14 Urine RBC 0-2 /hpf (0-2) 02/12/25 16:14 Urine WBC 0-5 /hpf (0-5) 02/12/25 16:14 Ur Squamous Epith Cells 0-5 /hpf (0-5) 02/12/25 16:14 Amorphous Sediment Not Reportable 02/12/25 16:14 Urine Bacteria None seen /hpf (NONE) 02/12/25 16:14 Hyaline Casts 0-4 /lpf H 02/12/25 16:14 No radiology studies performed this visit Discharge Plan Discharge Patient Disposition: Home Clinical Impression: Dermal hypersensitivity reaction Condition: Stable Prescriptions: New tadalafil [Cialis] 5 mg tablet 5 mg PO DAILY Qty: 90 0RF methylprednisolone [Medrol (Sarkis)] 4 mg tablets,dose pack See Rx Instructions PO .COMPLEX Qty: 21 0RF Rx Instructions: for 6 days No Action valacyclovir 1 gram tablet 1,000 mg PO Q8H 10 Days Qty: 30 0RF gabapentin 300 mg capsule 300 mg PO TID Qty: 60 0RF clobetasol 0.05 % cream 1 applic topical BID 14 Days Qty: 45 0RF (DME) Contour Next Test Strips Strip See Rx Instructions .Route Qty: 50 11RF Rx Instructions: use to test blood sugar once daily prednisone 5 mg tablet 5 mg PO DAILY tamsulosin 0.4 mg capsule 0.4 mg PO DAILY trazodone 100 mg tablet 100 mg PO BEDTIME PRN (Reason: sleep ) losartan 100 mg tablet 50 mg PO DAILY fluticasone propionate [Flonase Allergy Relief] 50 mcg/actuation spray,suspension 1 spray intranasal BID PRN (Reason: allergies) Rx Instructions: administer into each nostril acetaminophen [Tylenol] 325 mg Tablet 325 mg PO QID PRN (Reason: Pain) aspirin [Aspir-81] 81 mg Tablet,Delayed Release (Dr/Ec) 81 mg PO DAILY pregabalin 75 mg capsule 75 mg PO BID Qty: 60 0RF amlodipine 10 mg tablet 10 mg PO DAILY guaifenesin [Mucinex] 600 mg Tablet Extended Release 12hr 600 mg PO BID PRN (Reason: Congestion) doxycycline hyclate 100 mg capsule 100 mg PO BID neomycin-polymyxin B-dexameth 3.5 mg/g-10,000 unit/g-0.1 % ointment See Rx Instructions .ROUTE .COMPLEX Rx Instructions: APPLY SMALL AMOUNT IN THE LEFT EYELID THREE TIMES DAILY DIRECTED. prednisone 20 mg tablet 20 mg PO DAILY Discharge Orders: Discharge ED (Routine); Ordered 02/12/25 Ordered By: Emilia Dinero Referrals: Srinivasa Anderson MD [Primary Care Provider, Family Practice] Discharge Diet: Usual diet Discharge Activity: Resume usual activity Patient Instructions: Allergic Reaction, Patient Portal & Jenna Instructions Activity Restrictions/Additional Instructions: 1. Stop your tamsulosin immediately -Cialis for BPH was sent to your pharmacy instead of tamsulosin. 2. Stop your amlodipine in 7 days -No blood pressure medication was sent to the pharmacy. You may need to get additional medication from your primary. We did discuss possibly a beta-casey if your Medtr[employer] shows a demand rate on your pacemaker. Information to follow. 3. Stop your trazodone and 14 days. -We discussed using Melatonin: 3-10 mg at night 4. Follow-up with rheumatology as soon as possible. Case management consultation has been placed. You have a positive ELINOR with [facility], and it would be important to investigate this as possibly the cause of your ongoing reactions. 5. As far as your allergic reaction you needed add the following: -An antihistamine, twice daily long-acting [id number] (Claritin/loratidine, Mel/fexofenadine hydrochloride, Xyzal/levocetirizine, Clarinex/desloratadine, Zyrtec/cetirizine) brand name is followed by generic name. Any of these will work to take twice a day. -Long-acting antihistamine that blocks the second histamine receptors is Pepcid also known as famotidine generic. You also need to be taking this twice a day. - Your twice daily use of antihistamines is an off label use and approved for allergic reactions. 6. Continue your clobetasol cream for allergic reaction [id number] as we discussed with rubbing this on at night and placing full PJs on. It is important to utilize this at least at night, however if you can during the day that may help with the itching as well. 7. Your Medrol D[facility]pak is at [facility] with your Cialis to start with your BPH to try to stop your tamsulosin. We also discussed you possibly going to [facility] to have a greenlight procedure with your prostate if this ends up being the culprit. As well, if the tamsulosin is the culprit, you can continue your trazodone. 8. If you need a case management referral to get into a primary care quicker, please call the brushing machine operator for case management. This note is in the chart, and they will be able to see this. As well, since you have an appointment May with Dr. Fu, call his office for ER follow-up which will typically get you in in 1-2 weeks. I do realize you are seeing the doctor you do not want to disappoint in [place] because you are in a pickle. 9. If you need dermatology, please do not give up, go back to the link knitting machine operator and make them work through it. They did do a thorough examination, and I do believe they would do their best. 10. As well for thoroughness, you indicated you stopped your pregabalin, gabapentin, valacyclovir. These were all associated with your shingles approximately 8 weeks ago. 11. Consider a component of aspirin as allergy. Consider stopping your aspirin. For primary prevention, your primary care may consider placing you on Plavix/clopidogrel. You may return to the ED with worsening symptoms. We do not typically work through primary care issues, however you do have ongoing severe allergic reactions that we would be more than happy to reevaluate you for. You have pending labs to help with your rheumatology decision making: Complements, allergy panel which should include the IgE/total IgE. And lastly, good luck with all of your endeavors regarding this annoying allergy versus autoimmune ongoing breakout. (ELINOR positive with [facility] system) Thank you for choosing [facility] for your healthcare needs today. You have been screened and evaluated and felt safe for discharge. Health conditions do change or evolve sometimes and as such it is important that you follow up with your Primary Doctor to be re checked, 3-5 days is a general good time frame for follow up. You are always welcome to return to the ED for re assessment if your symptoms are worsening or you have new concerns Print Language: Greenlandic Coding Level of Care Code ED Health And Physical Education Teacher for Steffany Redmond
[2025-02-12 16:15] VITALS: BP 149/79; PULSE 62; O2SAT 95
[2025-02-12 16:24] LABS: Glucose Urine UA Negative (Normal); Nitrate Urine Negative (Negative); Specific Gravity, Urine 1.015 (1.005-1.030)
[2025-02-12 16:27] LABS: Add Urine Microscopic? YES
[2025-02-12 17:06] VITALS: BP 142/71; PULSE 60; O2SAT 95
--- NOTE | 2025-02-12 17:17 | PC.NURSE ---
[employer] pacemaker interrogated @1718, information sent. per ED provider to d/c patient and will call with report
--- NOTE | 2025-02-15 07:51 | DCPLANNER ---
messaged rheum for er f/u
[2025-02-16 14:46] LABS: Bermuda Class 0; Common Ragweed (Short) (W1) Ig <0.10 kU/L; Dermatophagoides Class 0/1; Dermatophagoides Farinae (D2) 0.18 kU/L; English Plantain (W9) Ige <0.10 kU/L; English Plantain Class 0; House Dust (Greer) (H1) Ige <0.10 kU/L; House Dust (Hollister- Stier) <0.10 kU/L; House Dust Class 0; Johnson Grass (G10) Ige 1.57 kU/L; Johnson Grass Cl 2; June Grass Class 0; June Grass(Kentucky Blue) (G8) <0.10 kU/L; Lamb'S Quarters (Goose Foot) <0.10 kU/L; Lamb'S Quarters Class 0; Maple (Box Elder) (T1) Ige <0.10 kU/L; Meadow Fescue (G4) Ige 0.12 kU/L; Meadow Fescue Class 0/1; Mucor Racemosus Class 0; Oak Class 0; Orchard Grass (Cocksfoot) (G3) 0.12 kU/L; Penicillium Class 0; Perennial Rye Grass (G5) Ige 0.11 kU/L; Perennial Rye Grass Class 0/1; Ragweeed Class 0; Rough Marsh Elder (W16) Ige 0.25 kU/L; Rough Marsh Elder Class 0/1; Sweet Vernal Class 0; Sweet Vernal Grass (G1) Ige <0.10 kU/L
[2025-02-16 19:28] LABS: Aspergillus Fumigatus, Igg Ab, 4.8 mg/L (<=102)
== END 2025-02-12 17:19 | disposition home or self-care (01) ==
PROVIDERS: Emergency Medicine; Emergency Provider Physician Assistant; PCP Family Medicine
DX: L23.9 Allergic contact dermatitis, unspecified cause (principal); Z79.82 Long term (current) use of aspirin; Z87.891 Personal history of nicotine dependence; E11.9 Type 2 diabetes mellitus without complications; I10 Essential (primary) hypertension; Z85.828 Personal history of other malignant neoplasm of skin; Z95.0 Presence of cardiac pacemaker
CPT/HCPCS: 36415; 80053; 81001; 82785; 83520; 83690; 85025; 86003; 86162; 96372; 99284; J1100

== ENCOUNTER 2025-02-18 12:51 | Emergency (ER) | payer MEDICARE, SELFPAY ==
--- OUTSIDE RECORDS SUMMARY | 2025-02-17 14:00 | XMS_ITS | Encounter Summary ---
Author Organization [facility] Address [address] [place] [address] Care Team Providers Care Dross Skimmer Name Role Phone Srinivasa Anderson MD Primary Care Provider [phone] Reason for Referral * Eval and Treat (Routine) - Open Specialty Diagnoses / Procedures Referred By Contac t Referred To Contact Dermatology Diagnoses Rash Procedures MN OFFICE/OUTPATIENT ESTABLISHED MOD MDM 30 MIN MN OFFICE/OUTPATIENT NEW MODERATE MDM 45 MINUTES Fran Mancilla, PIZZA DELIVERY DRIVER [address] [place] [address] Phone: tel: fax: Referral ID Status Reason Start Date Expiration Date Visits Re quested Visits Authorized [id number] Open 02/17/2025 02/17/2026 1 1 * Eval and Treat (Routine) - Open Specialty Diagnoses / Procedures Referred By Benito t Referred To Contact Rheumatology Diagnoses Rash Positive ELINOR (antinuclear antibody) Procedures MN OFFICE/OUTPATIENT ESTABLISHED MOD MDM 30 MIN MN OFFICE/OUTPATIENT NEW MODERATE MDM 45 MINUTES Fran Mancilla, VERONIQUE [address] [place] [address] Phone: tel: fax: Referral ID Status Reason Start Date Expiration Date Visits Re quested Visits Authorized [id number] Open 02/17/2025 02/17/2026 1 1 Reason for Visit * Reason Comments Follow Up Encounter Details Date Type Department Care Team (Samra st Contact Info) Description 02/17/2025 2:00 PM CDT Office Visit [facility] Juan LuisDruNilay Robles [place] [place] [address] Fran Mancilla NP [address] [place] [address] Shortness of breath (Primary Dx); Rash; Positive ELINOR (antinuclear antibody) Social History Tobacco Use Types Packs/Day Years [...] on file Legal Sex Male 6:28 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 INSTRUMENT 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 Gender Identity Not on file Sexual Orientation Not on file documented as of this encounter Last Filed Vital Signs Vital Sign Reading Time Taken Comments Blood Pressure 120/70 02/17/2025 1:22 PM CDT Pulse 68 02/17/2025 1:22 PM CDT Temperature 36.1 C (97 F) 02/17/2025 1:22 PM CDT Respiratory Rate 16 02/17/2025 1:22 PM CDT Oxygen Saturation 92% 02/17/2025 1:22 PM CDT Inhaled Oxygen Concentration - - Weight 88.5 kg (195 lb) 02/17/2025 1:22 PM CDT Height 193 cm (6' 4 ) 02/17/2025 1:22 PM CDT Body Mass Index 23.74 02/17/2025 1:22 PM CDT documented in this encounter Progress Notes * Fran Mancilla, PIZZA DELIVERY DRIVER - 02/17/2025 1:40 PM CDT Chief Complaint Patient presents with Follow Up SUBJECTIVE: Follow Up: He comes in today with his for an ER follow-up. He was recently seen at [facility] in [place], [place] on 02/12/2025. He went to the ER due to experiencing a rash on his chest over the past 9 weeks. He has a history of atrial fibrillation, a Watchman procedure, pacemaker, and aortic valve repair. He states that he has been experiencing itching with red spots throughout his torso and extremitiesover the past 9 weeks. He did have a recent positive ELINOR, but has not followed up with his microsoft net developer yet. During his ER visit they believe that he may be experiencing an allergic component to the rash he was recommended to start taking Pepcid and Zyrtec. However, he has not noticed much improvement since starting this medication. He also has been recommended to stop taking his trazodone, tamsulosin, and his amlodipine. He was prescribed a Medrol Dosepak as well and was recommended to continue with clobetasol cream. Since his ER visit he has started noticing some swelling in his lower legs as well as some shortness of breath when lying flat. However, he denies any chest pain or exertional chest pain. 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 Asteatosis L85.3 Personal history of other malignant neoplasm of skin Z85.828 Other and unspecified malignant neoplasm of scalp and skin of neck C44.40 Basal cell epithelioma, face C44.310 Other malignant neoplasm of skin of trunk, except scrotum C44.599 Rheumatoid arthritis (CMS/HCC) M06.9 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 Pernicious anemia D51.0 Diabetic polyneuropathy associated with type 2 diabetes mellitus E11.42 History of pulmonary embolus (PE) Z86.711 Weight loss, non-intentional R63.4 Severe mitral valve regurgitation I34.0 Pseudophakia of left eye Z96.1 Combined forms of age-related cataract of right eye H25.811 Pseudophakia of right eye Z96.1 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 Fall W19.XXXA 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 HTN (hypertension), benign I10 DM (diabetes mellitus), type 2 E11.9 Closed fracture of multiple ribs of left side S22.42XA Skin tear of upper extremity--small, bilateral S41.119A Contusion of face S00.83XA Vertigo R42 Persistent atrial fibrillation (CMS/HCC) I48.19 Presence of Watchman left atrial appendage closure device Z95.818 At high risk for bleeding Z91.89 Complete heart block (CMS/HCC) I44.2 Chronic diastolic congestive heart failure I50.32 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 Z95.0 Anemia D64.9 JOSSELYN (acute kidney injury) N17.9 Acute blood loss anemia D62 Stage 3a chronic kidney disease (CMS/HCC) N18.31 Pulmonary emphysema J43.9 Lupus erythematosus 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 Hiatal hernia K44.9 Peripheral edema R60.0 Other ascites R18.8 Acute cystitis N30.00 Acute on chronic combined systolic and diastolic congestive heart failure I50.43 Pulmonary hypertension (CMS/HCC) I27.20 Cardiac pacemaker in situ Z95.0 Syncope and collapse R55 Status post implantation of mitral valve leaflet clip Z98.890, Z95.818 Bilateral inguinal hernia K40.20 Urinary hesitancy R39.11 Aortic stenosis I35.0 Nocturia more than twice per night R35.1 Depression F32.A Chronic neck pain M54.2, G89.29 Allergic rhinitis J30.9 Abdominal discomfort R10.9 PSH: Past Surgical History: Procedure Laterality Date HX CATARACT EXTRACTION W/ INTRAOCULAR LENS IMPLANT Left 08/23/2016 ZCBOO +22, Dr. Dominic Peralta HX CATARACT EXTRACTION W/ INTRAOCULAR LENS IMPLANT Right 09/06/2016 ZCBOO +22.5, Dr Dominic Peralta HX COLONOSCOPY N/A 11/30/2022 COLONOSCOPY performed by Herman Schmitz MD at [facility] ENDOSCOPY HX ESOPHAGOGASTRODUODENOSCOPY N/A 11/30/2022 ESOPHAGOGASTRODUODENOSCOPY performed by Herman Schmitz MD at [facility] ENDOSCOPY HX PACEMAKER PLACEMENT HX PEDICLE FLAP Left 07/02/2023 BIPEDICLE FLAP TO EYELID performed by Александр Ramírez MD at [facility] OR HX SKIN BIOPSY HX SURGICAL OTHER tendon repair HX SURGICAL OTHER Left 08/13/2023 MESH INSERTION performed by Moiz Kaplan Jr., MD at [facility] OR MN COLONOSCOPY FLX DX W/COLLJ SPEC WHEN PFRMD 08/12/2009 COLONOSCOPY performed by KRYSTIN NEIL at [facility] ENDOSCOPY MN REPAIR ECTROPION EXTENSIVE Left 07/02/2023 ECTROPION REPAIR performed by Александр Ramírez MD at [facility] OR MN REPLACE AORTIC VALVE PERQ FEMORAL ARTRY APPROACH N/A 10/30/2022 AORTIC VALVE REPLACEMENT TRANSCATHETER performed by Poncho Rizo DO at [facility] INVASIVE CARDIOLOGY MN RPR 1ST INGUN HRNA AGE 5 YRS/> REDUCIBLE Left 08/13/2023 HERNIA INGUINAL REPAIR performed by Moiz Kaplan Jr., MD at [facility] MAIN OR MN XCAPSL CTRC RMVL INSJ IO LENS PROSTH W/O ECP Right 09/06/2016 CATARACT EXTRACTION IOL INSERTION FEMTO LASER ASSISTED performed by Dominic Peralta MD at [facility] SURG[facility] [place] [address] [place] XCAPSL [facility] RMVL INSJ IO LENS PROSTH W/O ECP Left 08/23/2016 CATARACT EXTRACTION IOL INSERTION FEMTO LASER ASSISTED performed by Dominic Peralta MD at [facility] SURG[facility] [place] Medication List has been reviewed. CURRENT MEDICATIONS REVIEWED AND RECONCILED losartan TAKE ONE TABLET BY MOUTH DAILY predniSONE TAKE 1 TABLET BY MOUTH DAILY predniSONE Take 1 Tablet (20 mg) by mouth daily. tamsulosin TAKE ONE CAPSULE BY MOUTH DAILY Breo Ellipta INHALE 1 PUFF BY MOUTH DAILY for 30 days amoxicillin-clavulanate Take 1 Tablet by mouth 2 times daily. traZODone TAKE ONE TABLET DAILY AT BEDTIME amLODIPine Take 1 Tablet (10 mg) by mouth daily. polyethylene glycol 3350 Take 1 Scoop (17 Grams) by mouth 2 times daily. Dissolve in 8 ounces of fluid and drink entire liquid traMADol Take 50 mg by mouth every 6 hours as needed for Pain. fluticasone propionate 1 SPRAY EACH NOSTRIL TWICE A DAY carboxymethylcellulose sodium Administer 2 Drops in left eye every 4 hours as needed for Discomfort. cyanocobalamin INJECT 1 ML BY IM EVERY 30 DAYS. Contour Next Test Strips CHECK BLOOD SUGAR 2 TIMES DAILY DIRECTED DXE11.9 BD Luer-Adi Syringe Inject 1ml every 30 days acetaminophen Take 500 mg by mouth every 6 hours as needed. TRUEplus Lancets TESTING GLUCOSE TWICE DAILY Medications reviewed and reconciled post discharge Current medications: Current Outpatient Medications Medication Sig Dispense Refill losartan (COZAAR) 100 mg tablet TAKE ONE TABLET BY MOUTH DAILY 90 Tablet 3 predniSONE (DELTASONE) 5 mg tablet TAKE 1 TABLET BY MOUTH DAILY 90 Tablet 1 predniSONE (DELTASONE) 20 mg tablet Take 1 Tablet (20 mg) by mouth daily. 10 Tablet 0 tamsulosin (FLOMAX) 0.4 mg capsule TAKE ONE CAPSULE BY MOUTH DAILY 90 Capsule 1 Breo Ellipta 100-25 mcg/dose Disk with Device INHALE 1 PUFF BY MOUTH DAILY for 30 days amoxicillin-clavulanate (AUGMENTIN) 875-125 mg tablet Take 1 Tablet by mouth 2 times daily. traZODone (DESYREL) 100 mg tablet TAKE ONE TABLET DAILY AT BEDTIME 30 Tablet 5 amLODIPine (NORVASC) 10 mg tablet Take 1 Tablet (10 mg) by mouth daily. 90 Tablet 3 polyethylene glycol 3350 (MIRALAX) 17 gram/dose Powder Take 1 Scoop (17 Grams) by mouth 2 times daily. Dissolve in 8 ounces of fluid and drink entire liquid 510 Gram 1 traMADoL (ULTRAM) 50 mg tablet Take 50 mg by mouth every 6 hours as needed for Pain. fluticasone propionate (FLONASE) 50 mcg/spray [place], Suspension nasal inhaler 1 SPRAY EACH NOSTRIL TWICE A DAY carboxymethylcellulose sodium (REFRESH PLUS) 0.5 % solution Administer 2 Drops in left eye every 4 hours as needed for Discomfort. 1 Each 0 cyanocobalamin (VITAMIN B-12) 1,000 mcg/mL Solution INJECT 1 ML BY IM EVERY 30 DAYS. 10 mL 11 blood sugar diagnostic (Contour Next Test Strips) Strip CHECK BLOOD SUGAR 2 TIMES DAILY FGHETAQAQLA04.9 100 Strip 12 Syringe with Needle, Disp, (BD Luer-Adi Syringe) 3 mL 25 x 5/8 Syringe Inject 1ml every 30 days 50Each 0 acetaminophen (TYLENOL) 500 mg tablet Take 500 mg by mouth every 6 hours as needed. lancets (TRUEplus Lancets) 28 gauge TESTING GLUCOSE TWICE DAILY 100 Each 12 No current facility-administered medications for this visit. Allergies: No Known Allergies Social History: Social History Socioeconomic History Marital status: Spouse name: Sultana Number of children: 2 Years of education: Not on file Highest education level: Not on file Occupational History Not on file Tobacco Use Smoking status: Never Smokeless tobacco: Former Vaping Use Vaping status: Never Used Substance and Sexual Activity Alcohol use: Yes Comment: occ Drug use: Never Sexual activity: Not on file Other Topics Concern Not on file Social History Narrative Merged History Encounter Health-Related Social Needs Food Insecurity: No Food Insecurity (08/08/2023) Food Insecurity Patient needs follow up regarding:: No concerns Transportation Needs: No Transportation Needs (08/08/2023) Transportation Needs Patient needs follow up regarding:: No concerns Domestic Concerns: Not At Risk (08/08/2023) Feeling Safe Patient has indicated abuse: : No Housing Stability: Low Risk (08/08/2023) Housing Stability Patient needs follow up regarding:: No concerns Family History: Family History Problem Relation Name Age of Onset Diabetes Mother Macular Degen Mother Heart Disease Mother Cancer Father small intestine No Known Problems Daughter No Known Problems Son Breast Cancer Neg Hx ROS General : Denies fever, sweats, or chills. ENT : Denies congestion, sore throat, or post nasal drip. Neurologic : Denies focal weakness, gait abnormalities, headache, dizziness, or paresthesia. CV : Complains of proximal nocturnal dyspnea, but denies chest pain or exertional chest pain. Respiratory : Denies cough or wheeze GI : Denies abdominal pain, hematochezia, melenotic stools. : Denies dysuria, frequency, or urgency. Musculoskeletal : Denies myalgias, arthralgias, weakness, recent injury, or fall. Skin : Complains of itchy rash on torso, arms, and legs. Physical Exam: BP 120/70 Pulse 68 Temp 97 ??F (36.1 ??C) Resp 16 Ht 6' 4 (1.93 m) Wt 88.5 kg (195 lb) SpO2 92% BMI 23.74 kg/m?? GENERAL: Well developed. No apparent distress, alert and oriented. SKIN: Red raised rash noted on abdomen, arms, and legs. No discharge or bleeding noted from the rash. HEART: regular rate and rhythm, murmur LUNGS: CTA bilaterally, no wheezes, rhonchi or rales, good respiratory effort MS: normal gait and station. EXTREMITIES: +2 bilateral lower leg edema noted. Peripheral pulses palpable throughout. NEURO: grossly intact. ICD-10-CM ICD-9-CM 1. Shortness of breath R06.02 786.05 XR CHEST PA AND LATERAL 2 VW BRAIN NATRIURETIC PEPTIDE, BNP OR PROBNP CBC WITH DIFFERENTIAL COMPREHENSIVE METABOLIC PANEL 2. Rash R21 782.1 AMB REFERRAL TO RHEUMATOLOGY AMB REFERRAL TO DERMATOLOGY 3. Positive ELINOR (antinuclear antibody) R76.89 795.79 AMB REFERRAL TO RHEUMATOLOGY [facility]. After discussing with Dr. Anderson, he will continue to remain off of his amlodipine, tamsulosin, andtrazodone. He was recommended to follow-up with his head of advertising and microsoft net developer. He was also recommended to stay hydrated with both water and sugar-free sports drinks and to avoid NSAIDs. He has taken Lasix in the past as needed for swelling and was recommended to take 1 dose of Lasixtoday and will be updated on further treatment of his shortness of breath and leg swelling once labs and x-rays have been completed. He will follow-up in 1 week for reevaluation. If he develops new or worsening symptoms prior he will go to the ER. The patient was counselled on the possible risks, benefits, and side effects of new medication(s) and expressed understanding. After considering these issues, the patient has elected to start the prescribed medication. The patient has agreed to contact our office if medication related questions arise, or if suspicion of medication related problems develop. Discussed s/s to watch for that would suggest worsening, and a plan of action if worsening occurred. The patient indicates understanding of these issues and agrees with the plan. Patient understands to call or return to clinic or ER prn if these symptoms worsen or fail to improve as anticipated. If you are reading your progress note, please be aware that this is meant as a communication from physician to physician and there may be terminology that is unfamiliar to you. If you find that is the case or you disagree with anything in my note, kindly wait until your next appointment to discuss with me. However, understand that changes to the note will only be made if information is factually an error. Also, clinical information cannot be removed from the medical records in order to withholdinformation from insurance companies. In addition, please understand that I am not at liberty to discuss progress notes written by other providers. This documentation was created by an [employer] privacy officer software. Effort has been done to assure accuracy of privacy officer. Any obvious errors or omissions should be clarified with the author of the document. Fran Mancilla NP documented in this encounter Plan of Treatment Upcoming Encounters Date Type Department Care Team (Late st Contact Info) Description 02/24/2025 3:00 PM HEARING INSTRUMENT SPECIALIST Office Visit [facility] Travis [place] [place] [address] Srinivasa Anderson MD [address] [place] [address] 03/26/2025 11:40 AM HEARING INSTRUMENT SPECIALIST Office Visit [facility] [address] [place] [address] Dominic Haskins CRNP [address] [place] [address] 07/08/2025 1:00 PM CDT Office Visit [facility] [address] [place] [address] Kodak Samuel MD [address] [place] [address] Scheduled Referrals Name Type Priority Associated Diagnoses Order Schedule AMB REFERRAL TO RHEUMATOLOGY Outpatient Referral Routine Rash Positive ELINOR (antinuclear antibody) Ordered: 02/17/2025 AMB REFERRAL TO DERMATOLOGY Outpatient Referral Routine Rash Ordered: 02/17/2025 documented as of this encounter Results * XR CHEST PA AND LATERAL 2 VW (02/17/2025 2:28 PM CDT) Anatomical Region Laterality Modality Chest Computed Radiogr aphy 02/17/2025 2:28 PM CDT Impressions 02/18/2025 8:01 AM CDT IMPRESSION: Please see below. Exam: XR CHEST PA AND LATERAL 2 VW Date/Time of Exam: 02/17/2025 2:28 PM Reason For Exam: See Diagnosis. Diagnosis: Shortness of breath. Findings: Comparison study 01/16/2023. Small right-sided pleural effusion. No pneumothorax. Stable enlarged cardiac silhouette. No consolidating airspace disease. No acute pathology of imaged skeleton. IMPRESSION: Small right-sided pleural effusion. Narrative Procedure Note Sirena Bruce MD - 02/18/2025 IMPRESSION: Please see below. Exam: XR CHEST PA AND LATERAL 2 VW Date/Time of Exam: 02/17/2025 2:28 PM Reason For Exam: See Diagnosis. Diagnosis: Shortness of breath. Findings: Comparison study 01/16/2023. Small right-sided pleural effusion. No pneumothorax. Stable enlarged cardiac silhouette. No consolidating airspace disease. No acute pathology of imaged skeleton. IMPRESSION: Small right-sided pleural effusion. Fran Mancilla PIZZA DELIVERY DRIVER DIAGNOSTIC IMAGING ORDERABLES F inal Result documented in this encounter Visit Diagnoses Diagnosis Shortness of breath- Primary Rash Rash and other nonspecific skin eruption Positive ELINOR (antinuclear antibody) Other and unspecified nonspecific immunological findings Shortness of breath documented in this encounter Care Teams Dross Skimmer Relationship Specialty Start Date End Date Srinivasa Anderson MD [address] [address] PCP - General Family Practice 05/18/24 documented as of this encounter
--- OUTSIDE RECORDS SUMMARY | 2025-02-17 14:20 | XMS_ITS | Encounter Summary ---
Author Organization [facility] Address [address] [place] [address] Care Team Providers Care Skatesman Name Role Phone Srinivasa Anderson MD Primary Care Provider [phone] Encounter Details Date Type Department Care Team (Latest Contact Info) Description 02/17/2025 2:20 PM CDT - 02/17/2025 11:59 PM CDT Hospital Encounter [facility] Imaging Services Nilay Robles [place] [address] [place] [address] Fran Mancilla, SKATESMAN [address] [place] [address] Arrived Discharge Disposition: Home or Self Care Social History Tobacco Use Types Packs/Day Years [...] on file 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 10 Tablet 02/03/2025 tamsulosin (FLOMAX) 0.4 mg capsule TAKE ONE CAPSULE BY MOUTH DAILY 90 Capsule 1 01/14/2025 Breo Ellipta 100-25 mcg/dose Disk with Device INHALE 1 PUFF BY MOUTH DAILY for 30 days 09/04/2024 amoxicillin-clavul anate (AUGMENTIN) 875-125 mg tablet Take 1 Tablet by mouth 2 times daily. 09/04/2024 traZODone (DESYREL) 100 mg tablet TAKE ONE TABLET DAILY AT BEDTIME 30 Tablet 5 08/10/2024 amLODIPine (NORVASC) 10 mg tablet Take 1 Tablet (10 mg) by mouth daily. 90 Tablet 3 02/03/2024 polyethylene glycol 3350 (MIRALAX) 17 gram/dose PowderIndications: Constipation, unspecified constipation type Take 1 Scoop (17 Grams) by mouth 2 times daily. Dissolve in 8 ounces of fluid and drink entire liquid 510 Gram 1 10/23/2023 traMADoL (ULTRAM) 50 mg tablet Take 50 mg by mouth every 6 hours as needed for Pain. fluticasone propionate (FLONASE) 50 mcg/spray [place], Suspension nasal inhaler 1 SPRAY EACH NOSTRIL TWICE A DAY 03/09/2022 carboxymethylcellu lose sodium (REFRESH PLUS) 0.5 % solution Administer 2 Drops in left eye every 4 hours as needed for Discomfort. 1 Each 06/06/2022 cyanocobalamin (VITAMIN B-12) 1,000 mcg/mL Solution INJECT 1 ML BY IM EVERY 30 DAYS. 10 mL 11 10/25/2020 blood sugar diagnostic (Contour Next Test Strips) Strip CHECK BLOOD SUGAR 2 TIMES DAILY DIRECTED DXE11.9 100 Strip 12 04/26/2020 Syringe with Needle, Disp, (BD Luer-Adi Syringe) 3 mL 25 x 5/8 Syringe Inject 1ml every 30 days 50 Each 0 03/16/2020 acetaminophen (TYLENOL) 500 mg tablet Take 500 mg by mouth every 6 hours as needed. 10/15/2019 lancets (TRUEplus Lancets) 28 gauge TESTING GLUCOSE TWICE DAILY 100 Each 12 09/26/2017 documented as of this encounter Plan of Treatment Upcoming Encounters Date Type Department Care Team (Late st Contact Info) Description 02/24/2025 3:00 PM TERMITE EXTERMINATOR Office Visit [facility] [place] Travis [place] [place] [address] Srinivasa Anderson MD [address] [place] [address] 03/26/2025 11:40 AM TERMITE EXTERMINATOR Office Visit [facility] [address] [place] [address] Dominic Haskins CRNP [address] [place] [address] 07/08/2025 1:00 PM CDT Office Visit [facility] [address] [place] [address] Kodak Samuel MD [address] [facility] [address] [place] [address] documented as of this encounter Procedures Procedure Name Priority Date/Time Associated Diagnosis Comments XR CHEST PA AND LATERAL 2 VW Routine 02/17/2025 2:28 PM CDT Shortness of breath documented in this encounter Results * XR CHEST PA [...] IMPRESSION: Small right-sided pleural effusion. Fran Mancilla NP DIAGNOSTIC IMAGING ORDERABLES F inal Result documented in this encounter Visit Diagnoses Diagnosis Shortness of breath documented in this encounter Care Teams Skatesman Relationship Specialty Start Date End Date Srinivasa Anderson MD [address] [address] PCP - General Family Practice 05/18/24 documented as of this encounter
--- OUTSIDE RECORDS SUMMARY | 2025-02-18 12:59 | XMS_ITS | Encounter Summary ---
Author Organization [facility] Address [address] [facility] [place] [address] Care Team Providers Care Judicial Reporter Name Role Phone Srinivasa Anderson MD Primary Care Provider [phone] Encounter Details Date Type Department Care Team (Latest Contact Info) Description 01/16/2007 Outpatient Historical [facility] [place] [place] [address] Srinivasa Anderson MD [address] [place] [address] Other Abnormal Blood Chemistry (Primary Dx); Iatrogenic Pulmonary Embolism and Infarction (CMS/HCC); Other and Unspecified Hyperlipidemia; Other Testicular Hypofunction Social History Tobacco Use Types Packs/Day Years Used Date Smoking Tobacco: Never Assessed Sex and Gender Information Value Date Recorded Sex Assigned at Not on file 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 Male 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 Gender Identity Not on file Sexual Orientation Not on file documented as of this encounter Plan of Treatment Not on file documented as of this encounter Visit Diagnoses Diagnosis Other abnormal blood chemistry- Primary Iatrogenic pulmonary embolism and infarction (CMS/HCC) Iatrogenic pulmonary embolism and infarction Other and unspecified hyperlipidemia Other testicular hypofunction documented in this encounter Care Teams Judicial Reporter Relationship Specialty Start Date End Date Srinivasa Anderson MD [address] [place] [address] PCP - General 07/18/04 documented as of this encounter
--- OUTSIDE RECORDS SUMMARY | 2025-02-18 12:59 | XMS_ITS | Encounter Summary ---
Author Organization [facility] Address [address] [facility] [place] [address] Care Team Providers Care Plate Maker Zinc Name Role Phone Srinivasa Anderson MD Primary Care Provider [phone] Encounter Details Date Type Department Care Team (Latest Contact Info) Description 12/19/2006 Outpatient Historical 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
--- OUTSIDE RECORDS SUMMARY | 2025-02-18 12:59 | XMS_ITS | Encounter Summary ---
Author Organization [facility] Address [address] [facility] [place] [address] Care Team Providers Care Plaster Mixer Name Role Phone Srinivasa Anderson MD Primary Care Provider [phone] Encounter Details Date Type Department Care Team (Latest Contact Info) Description 10/10/2006 Outpatient Historical [facility] Dermatology- [facility] [place] [address] [place] [id number] Zoltan Mahoney MD NO ADDRESS ON FILE Actinic Keratosis (Primary Dx); Other Seborrheic Keratosis; Benign John Scalp/Skin Neck Social History Tobacco Use Types Packs/Day Years Used Date Smoking Tobacco: Never Assessed Sex and Gender Information Value Date Recorded Sex Assigned at Not on file 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
--- OUTSIDE RECORDS SUMMARY | 2025-02-18 12:59 | XMS_ITS | Encounter Summary ---
Author Organization [facility] Address [address] [place] [address] Care Team Providers Care Zinc Furnace Charger Name Role Phone Srinivasa Anderson MD Primary Care Provider [phone] Encounter Details Date Type Department Care Team (Latest Contact Info) Description 10/24/2006 Outpatient Historical [facility] [place] [place] [address] Srinivasa Anderson MD [address] [place] [address] Other Testicular Hypofunction (Primary Dx) Social History Tobacco Use Types Packs/Day Years Used Date Smoking Tobacco: Never Assessed Sex and Gender Information Value Date Recorded Sex Assigned at Not on file 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
--- OUTSIDE RECORDS SUMMARY | 2025-02-18 12:59 | XMS_ITS | Encounter Summary ---
Author Organization [facility] Address [address] [place] [place] [address] Care Team Providers Care Telescope Repairer Name Role Phone Srinivasa Anderson MD Primary Care Provider [phone] Encounter Details Date Type Department Care Team (Latest Contact Info) Description 09/26/2006 Outpatient Historical [facility] [place] [place] [address] Srinivasa Anderson MD [address] [place] [address] Other Testicular Hypofunction (Primary Dx) Social History Tobacco Use Types Packs/Day Years Used Date Smoking Tobacco: Never Assessed Sex and Gender Information Value Date Recorded Sex Assigned at Not on file 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
--- NOTE | 2025-02-18 13:00 | ECG_ITS ---
[facility] Date: 2025-02-18 Pat Name: Moiz Hernandez Department: Room: Gender: Male Sign Maintenance: : 1935 Requested By: Emilia Daivs Order Number: [id number] Keyona MD: ABE SALEEM Measurements Intervals [place] Rate: 61 P: 0 MI: 0 QRS: -67 QRSD: 173 T: 97 QT: 468 QTc: 472 Interpretive Statements ELECTRONIC VENTRICULAR PACEMAKER ABNORMAL RHYTHM ECG INTERPRETATION BASED ON A DEFAULT AGE OF 40 YEARS Compared to ECG 09/02/2024 13:49:49 No significant changes Electronically Signed On 02-20-2025 21:18:28 CDT by ABE SALEEM [email or web address]
--- OUTSIDE RECORDS SUMMARY | 2025-02-18 13:00 | XMS_ITS | Encounter Summary ---
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
--- OUTSIDE RECORDS SUMMARY | 2025-02-18 13:00 | XMS_ITS | Encounter Summary ---
Author Organization [facility] Address [address] [place] [address] Care Team Providers Care Manager Of Software Development Name Role Phone Srinivasa Anderson MD Primary Care Provider [phone] Encounter Details Date Type Department Care Team (Latest Contact Info) Description 04/11/2006 Outpatient Historical [facility] [address] 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
--- OUTSIDE RECORDS SUMMARY | 2025-02-18 13:00 | XMS_ITS | Encounter Summary ---
Author Organization [facility] Address [address] [place] [address] Care Team Providers Care Promotions Producer Name Role Phone Srinivasa Anderson MD Primary Care Provider [phone] Encounter Details Date Type Department Care Team (Latest Contact Info) Description 09/04/2005 Outpatient Historical [facility] [place] [address] Srinivasa Anderson MD [address] [place] [address] Unspecified Essential Hypertension (Primary Dx); Other and Unspecified Hyperlipidemia; Abdominal Pain, Unspecified Site; Depressive Disorder, not Elsewhere Classified Social History Tobacco Use Types Packs/Day Years Used Date Smoking Tobacco: Never Assessed Sex and Gender Information Value Date Recorded Sex Assigned at Not on file 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
--- OUTSIDE RECORDS SUMMARY | 2025-02-18 13:00 | XMS_ITS | Encounter Summary ---
Author Organization [facility] Address [address] [facility] [place] [address] Care Team Providers Care Qual Research Manager Name Role Phone Srinivasa Anderson MD Primary Care Provider [phone] Encounter Details Date Type Department Care Team (Latest Contact Info) Description 08/16/2005 Outpatient Historical [facility] [place] [place] [address] Srinivasa Anderson MD [address] [place] [address] Other Testicular Hypofunction (Primary Dx) Social History Tobacco Use Types Packs/Day Years Used Date Smoking Tobacco: Never Assessed Sex and Gender Information Value Date Recorded Sex Assigned at Not on file 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
--- OUTSIDE RECORDS SUMMARY | 2025-02-18 13:00 | XMS_ITS | Encounter Summary ---
Author Organization [facility] Address [address] [facility] [place] [address] Care Team Providers Care Heel Builder Name Role Phone Srinivasa Anderson MD Primary Care Provider [phone] Encounter Details Date Type Department Care Team (Latest Contact Info) Description 2006 Outpatient Historical [facility] [place] [place] [address] Srinivasa Anderson MD [address] [place] [address] Other Testicular Hypofunction (Primary Dx) Social History Tobacco Use Types Packs/Day Years Used Date Smoking Tobacco: Never Assessed Sex and Gender Information Value Date Recorded Sex Assigned at Not on file 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
--- OUTSIDE RECORDS SUMMARY | 2025-02-18 13:00 | XMS_ITS | Encounter Summary ---
Author Organization [facility] Address [address] [place] [address] Care Team Providers Care Pesticide Applicator Name Role Phone Srinivasa Anderson MD Primary Care Provider [phone] Encounter Details Date Type Department Care Team (Latest Contact Info) Description 10/10/2005 Outpatient Historical [facility] [address] 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
--- OUTSIDE RECORDS SUMMARY | 2025-02-18 13:00 | XMS_ITS | Encounter Summary ---
Author Organization [facility] Address [address] [place] [address] Care Team Providers Care Engineering Program Manager Name Role Phone Srinivasa Anderson MD Primary Care Provider [phone] Encounter Details Date Type Department Care Team (Latest Contact Info) Description 06/19/2006 Outpatient Historical [facility] [place] [place] [address] Srinivasa Anderson MD [address] [place] [address] Other Testicular Hypofunction (Primary Dx) Social History Tobacco Use Types Packs/Day Years Used Date Smoking Tobacco: Never Assessed Sex and Gender Information Value Date Recorded Sex Assigned at Not on file 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
--- OUTSIDE RECORDS SUMMARY | 2025-02-18 13:00 | XMS_ITS | Encounter Summary ---
Author Organization [facility] Address [address] [facility] [place] [address] Care Team Providers Care Terrapin Fisher Name Role Phone Srinivasa Anderson MD Primary Care Provider [phone] Encounter Details Date Type Department Care Team (Latest Contact Info) Description 04/19/2006 Outpatient Historical [facility] [place] [place] [address] Srinivasa Anderson MD [address] [place] [address] Other Testicular Hypofunction (Primary Dx) Social History Tobacco Use Types Packs/Day Years Used Date Smoking Tobacco: Never Assessed Sex and Gender Information Value Date Recorded Sex Assigned at Not on file 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
--- OUTSIDE RECORDS SUMMARY | 2025-02-18 13:00 | XMS_ITS | Encounter Summary ---
Author Organization [facility] Address [address] [facility] [place] [address] Care Team Providers Care Gauge And Weigh Machine Operator Name Role Phone Srinivasa Anderson MD Primary Care Provider [phone] Encounter Details Date Type Department Care Team (Latest Contact Info) Description 11/22/2005 Outpatient Historical [facility] [place] [place] [address] Nati Espinoza MD [address] [place] [address] Other Testicular Hypofunction (Primary Dx) Social History Tobacco Use Types Packs/Day Years Used Date Smoking Tobacco: Never Assessed Sex and Gender Information Value Date Recorded Sex Assigned at Not on file 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
--- OUTSIDE RECORDS SUMMARY | 2025-02-18 13:00 | XMS_ITS | Encounter Summary ---
Author Organization [facility] Address [address] [facility] [place] [address] Care Team Providers Care Obstetrics And Gynecology Professor Name Role Phone Srinivasa Anderson MD Primary Care Provider [phone] Encounter Details Date Type Department Care Team (Latest Contact Info) Description 04/11/2006 Outpatient Historical [facility]- [facility] [place] [address] [place] [address] Zoltan Mahoney MD NO ADDRESS ON FILE Malig John Skin Ear (Primary Dx); Actinic Keratosis; Other Seborrheic Keratosis Social History Tobacco Use Types Packs/Day Years Used Date Smoking Tobacco: Never Assessed Sex and Gender Information Value Date Recorded Sex Assigned at Not on file 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
--- OUTSIDE RECORDS SUMMARY | 2025-02-18 13:00 | XMS_ITS | Encounter Summary ---
Author Organization [facility] Address [address] [place] [address] Care Team Providers Care Parking Regulation Enforcement Officer Name Role Phone Srinivasa Anderson MD Primary Care Provider [phone] Encounter Details Date Type Department Care Team (Latest Contact Info) Description 04/25/2006 Outpatient Historical [facility] [place] [facility] [place] [place] [address] Srinivasa Anderson MD [address] [place] [address] Acute Sinusitis, Unspecified (Primary Dx) Social History Tobacco Use Types Packs/Day Years Used Date Smoking Tobacco: Never Assessed Sex and Gender Information Value Date Recorded Sex Assigned at Not on file 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
--- OUTSIDE RECORDS SUMMARY | 2025-02-18 13:00 | XMS_ITS | Encounter Summary ---
Author Organization [facility] Address [address] [place] [address] Care Team Providers Care Building Services Engineer Name Role Phone Srinivasa Anderson MD Primary Care Provider [phone] Reason for Referral * Outpatient Services (Routine) - Closed Specialty Diagnoses / Procedures Referred By Contac t Referred To Contact Diagnoses Breast swelling Procedures MAMMO DIGITAL DIAG BILAT Srinivasa Anderson MD [address] [place] [address] Phone: tel: fax: Referral ID Status Reason Start Date Expiration Date Visits Re quested Visits Authorized [id number] Closed 04/08/2012 04/08/2013 1 1 ING DIRECTOR Encounter Details Date Type Department Care Team (Late st Contact Info) Description 04/08/2012 Ancillary Orders [facility] [place] [place] [address] Srinivasa Anderson MD [address] [place] [address] Breast swelling Social History Tobacco Use Types Packs/Day Years Used Date Smoking Tobacco: Former Cigarettes 0.5 30 0 04/22/1962 - 04/22/1992 Smokeless Tobacco: Never Alcohol Use Standard Drinks/Week Comments No 0 (1 standard drink = 0.6 oz pur e alcohol) Sex and Gender Information Value Date Recorded Sex Assigned at Not on file Legal Sex Male 3:08 AM LEASING DIRECTOR Gender Identity Not on file Sexual Orientation Not on file Occupation Industry Job Start Date Job End Date Not on file Not on file Not on file Not on file documented as of this encounter Plan of Treatment Not on file documented as of this encounter Results * MAMMO DIGITAL DIAG BILAT (04/08/2012 11:03 AM LEASING DIRECTOR) Anatomical Region Laterality Modality Breast Bilateral Mammography 04/08/2012 10:0 1 AM LEASING DIRECTOR Impressions 04/08/2012 8:55 PM LEASING DIRECTOR IMPRESSION: Bilateral diagnostic exam and directed left breast ultrasound was performed today. The mammogram is unremarkable as well as the directed left breast ultrasound. Therefore clinical correlation is recommended regarding the reported symptoms. Patient received the result and recommendation letter. Spencer 1140 AM - uploaded from [employer] - Narrative 04/08/2012 8:55 PM LEASING DIRECTOR REASON FOR EXAM: Patient is reporting [...] by the Computer Aided Detection System (CAD), [employer] ImageChecker, Version 8.3. LEFT BREAST ULTRASOUND: Sonographic [...] by the Computer Aided Detection System (CAD), [employer] ImageImpressPagescker, Version 8.3. LEFT BREAST ULTRASOUND: Sonographic evaluation [...] letter. DB/allie 1140 AM - uploaded from [employer] - us Srinivasa Anderson MD MAMMO ORDERABLES Final Result documented in this encounter Visit Diagnoses Diagnosis Breast swelling Lump or mass in breast Breast swelling Lump or mass in breast documented in this encounter Care Teams Building Services Engineer Relationship Specialty Start Date End Date Srinivasa Anderson MD [address] [address] PCP - General 07/18/04 documented as of this encounter
--- OUTSIDE RECORDS SUMMARY | 2025-02-18 13:00 | XMS_ITS | Encounter Summary ---
Author Organization [facility] Address [address] [place] [address] Care Team Providers Care Auto Claim Representative Name Role Phone Srinivasa Anderson MD Primary Care Provider [phone] Encounter Details Date Type Department Care Team (Late st Contact Info) Description 02/18/2025 Results Follow-Up [facility] [place] [place] [address] Fran Mancilla, DIRECTOR MOBILE [address] [place] [address] XR CHEST PA AND LATERAL 2 VW Social History Tobacco Use Types Packs/Day Years [...] on file Legal Sex Male 6:28 AM SENIOR INSTRUMENTATION ENGINEER Gender Identity Not on file Sexual Orientation Not on file documented as of this encounter Miscellaneous Notes * Result Encounter Note - Fran Mancilla, DIRECTOR MOBILE - 02/18/2025 8:23 AM CDT Chest x-ray shows a small right sided pleural effusion. Due to this finding and exacerbation of congestive heart failure patient is recommended to go to the ER for further evaluation. documented in this encounter Plan of Treatment Upcoming Encounters Date Type Department Care Team (Late st Contact Info) Description 02/24/2025 3:00 PM SENIOR INSTRUMENTATION ENGINEER Office Visit [facility] [place] [address] [place] [address] Srinivasa Anderson MD [address] [place] [address] 03/26/2025 11:40 AM SENIOR INSTRUMENTATION ENGINEER Office Visit [facility] [address] [place] [address] Dominic Haskins CRNP [address] [place] [address] 07/08/2025 1:00 PM CDT Office Visit [facility] [address] [place] [address] Kodak Samuel MD [address] [place] [address] documented as of this encounter Visit Diagnoses Not on filedocumented in this encounter Care Teams Auto Claim Representative Relationship Specialty Start Date End Date Srinivasa Anderson MD [address] [place] [address] PCP - General Family Practice 05/18/24 documented as of this encounter
--- OUTSIDE RECORDS SUMMARY | 2025-02-18 13:00 | XMS_ITS | Encounter Summary ---
Author Organization [facility] Address [address] [facility] [facility] [place] [address] Care Team Providers Care Director Of Alumni Relations Name Role Phone Srinivasa Anderson MD Primary Care Provider [phone] Encounter Details Date Type Department Care Team (Latest Contact Info) Description 03/26/2006 Outpatient [facility] [place] [place] [address] Srinivasa Anderson MD [address] [place] [address] Other Testicular Hypofunction (Primary Dx); Vaccine for influenza; Lumbago Social History Tobacco Use Types Packs/Day Years Used Date Smoking Tobacco: Never Assessed Sex and Gender Information Value Date Recorded Sex Assigned at Not on file 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
--- OUTSIDE RECORDS SUMMARY | 2025-02-18 13:00 | XMS_ITS | Encounter Summary ---
Author Organization [facility] Address [address] [place] [address] Care Team Providers Care Scroll Machine Operator Name Role Phone Srinivasa Anderson MD Primary Care Provider [phone] Encounter Details Date Type Department Care Team (Latest Contact Info) Description 10/19/2005 Outpatient Historical [facility] [place] [place] [address] Srinivasa Anderson MD [address] [place] [address] Other Testicular Hypofunction (Primary Dx) Social History Tobacco Use Types Packs/Day Years Used Date Smoking Tobacco: Never Assessed Sex and Gender Information Value Date Recorded Sex Assigned at Not on file 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
--- OUTSIDE RECORDS SUMMARY | 2025-02-18 13:00 | XMS_ITS | Encounter Summary ---
Author Organization [facility] Address [address] [place] [address] Care Team Providers Care Salt Washer Harvesting Station Name Role Phone Srinivasa Anderson MD Primary Care Provider [phone] Encounter Details Date Type Department Care Team (Latest Contact Info) Description 05/15/2006 Outpatient Historical [facility] [place] [place] [address] Srinivasa Anderson MD [address] [place] [address] Other Testicular Hypofunction (Primary Dx) Social History Tobacco Use Types Packs/Day Years Used Date Smoking Tobacco: Never Assessed Sex and Gender Information Value Date Recorded Sex Assigned at Not on file 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
--- OUTSIDE RECORDS SUMMARY | 2025-02-18 13:00 | XMS_ITS | Encounter Summary ---
Author Organization [facility] Address [address] [facility] [place] [address] Care Team Providers Care Dog Barber Name Role Phone Srinivasa Anderson MD Primary Care Provider [phone] Encounter Details Date Type Department Care Team (Latest Contact Info) Description 08/15/2006 Outpatient Historical [facility] [place] [place] [address] Srinivasa Anderson MD [address] [place] [address] Other Testicular Hypofunction (Primary Dx) Social History Tobacco Use Types Packs/Day Years Used Date Smoking Tobacco: Never Assessed Sex and Gender Information Value Date Recorded Sex Assigned at Not on file 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
--- OUTSIDE RECORDS SUMMARY | 2025-02-18 13:00 | XMS_ITS | Encounter Summary ---
Author Organization [facility] Address [address] [place] [address] Care Team Providers Care Urban Anthropologist Name Role Phone Srinivasa Anderson MD Primary Care Provider [phone] Encounter Details Date Type Department Care Team (Late st Contact Info) Description 02/09/2025 Orders Only [facility] [place] [place] [address] Srinivasa Anderson MD [address] [place] [address] Anemia, unspecified type (Primary Dx); Hypocalcemia Social History Tobacco Use Types Packs/Day Years [...] on file Legal Sex Male 6:28 AM GLOVE WRAPPER Gender Identity Not on file Sexual Orientation Not on file documented as of this encounter Plan of Treatment Upcoming Encounters Date Type Department Care Team (Late st Contact Info) Description 02/24/2025 3:00 PM GLOVE WRAPPER Office Visit [facility] [place] [place] [address] Srinivasa Anderson MD [address] [place] [address] 03/26/2025 11:40 AM GLOVE WRAPPER Office [facility] [address] [facility] [address] [place] [address] Dominic Haskins CRNP [address] [facility] [place] [address] 07/08/2025 1:00 PM CDT Office Visit [facility] [address] [place] [address] Kodak Samuel MD [address] [facility] [address] [place] [address] Scheduled Orders Name Type Priority Associated Diagnoses Orde r Schedule CALCIUM IONIZED Lab Routine Hypocalcemia Expected: 02/09/2025 (Approximate), Expires: 05/10/2025 PTH INTACT Lab Routine Hypocalcemia Expected: 02/09/2025 (Approximate), Expires: 05/10/2025 FERRITIN Lab Routine Anemia, unspecified type Expected: 02/09/2025 (Approximate), Expires: 05/10/2025 IRON, TIBC, AND PERCENT SATURATION Lab Routine Anemia, unspecified type Expected: 02/09/2025 (Approximate), Expires: 05/10/2025 CBC WITH DIFFERENTIAL Lab Routine Anemia, unspecified type Expected: 02/09/2025 (Approximate), Expires: 05/10/2025 COMPREHENSIVE METABOLIC PANEL Lab Routine Anemia, unspecified type Expected: 02/09/2025 (Approximate), Expires: 05/10/2025 documented as of this encounter Visit Diagnoses Diagnosis Anemia, unspecified type- Primary Hypocalcemia documented in this encounter Care Teams Urban Anthropologist Relationship Specialty Start Date End Date Srinivasa Anderson MD [address] [address] PCP - General Family Practice 05/18/24 documented as of this encounter
--- OUTSIDE RECORDS SUMMARY | 2025-02-18 13:00 | XMS_ITS | Encounter Summary ---
Author Organization [facility] Address [address] [facility] [place] [place] [address] Care Team Providers Care Outside Machinist Name Role Phone Srinivasa Anderson MD Primary Care Provider [phone] Encounter Details Date Type Department Care Team (Latest Contact Info) Description 07/25/2006 Outpatient Historical [facility] [place] [place] [address] Srinivasa Anderson MD [address] [place] [address] Other Abnormal Blood Chemistry (Primary [...] organs documented in this encounter Care Teams Outside Machinist Relationship Specialty Start Date End Date Srinivasa Anderson MD [address] [place] [address] PCP - General 07/18/04 documented as of this encounter
--- OUTSIDE RECORDS SUMMARY | 2025-02-18 13:00 | XMS_ITS | Encounter Summary ---
Author Organization [facility] Address [address] [place] [address] Care Team Providers Care Director Of Strategic Partnerships Name Role Phone Srinivasa Anderson MD Primary Care Provider [phone] Encounter Details Date Type Department Care Team (Latest Contact Info) Description 07/25/2005 Outpatient Historical [facility] [address] [place] [address] Zoltan Mahoney MD NO ADDRESS ON FILE Malig John Skin Arm (Primary Dx); Other Seborrheic Keratosis Social History Tobacco Use Types Packs/Day Years Used Date Smoking Tobacco: Never Assessed Sex and Gender Information Value Date Recorded Sex Assigned at Not on file Legal Sex Male 3:08 AM FOOD SERVICE REPRESENTATIVE Gender Identity Not on file Sexual Orientation Not on file documented as of this encounter Plan of Treatment Not on file documented as of this encounter Visit Diagnoses Diagnosis 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
--- OUTSIDE RECORDS SUMMARY | 2025-02-18 13:00 | XMS_ITS | Encounter Summary ---
Author Organization [facility] Address [address] [facility] [address] [facility] [place] [address] Care Team Providers Care Cryptologic Supervisor Name Role Phone Srinivasa Anderson MD Primary Care Provider Reason for Referral * Outpatient Services (Routine) - Closed Specialty Diagnoses / Procedures Referred By Contac t Referred To Contact Diagnoses Breast swelling Procedures MAMMO BREAST US LT Srinivasa Anderson MD [address] [place] [address] Phone: tel: fax: Referral ID Status Reason Start Date Expiration Date Visits Re quested Visits Authorized [id number] Closed 04/08/2012 04/08/2013 1 1 IAL POLICE OFFICER Encounter Details Date Type Department Care Team (Late st Contact Info) Description 04/08/[address] [facility] [place] [place] [address] Srinivasa Anderson MD [address] [place] [address] Breast swelling Social History Tobacco Use Types Packs/Day Years Used Date Smoking Tobacco: Former Cigarettes 0.5 30 0 04/22/1962 - 04/22/1992 Smokeless Tobacco: Never Alcohol Use Standard Drinks/Week Comments No 0 (1 standard drink = 0.6 oz pur e alcohol) Sex and Gender Information Value Date Recorded Sex Assigned at Not on file Legal Sex Male 3:08 AM SPECIAL POLICE OFFICER Gender Identity Not on file Sexual Orientation Not on file Occupation Industry Job Start Date Job End Date Not on file Not on file Not on file Not on file documented as of this encounter Plan of Treatment Not on file documented as of this encounter Results * MAMMO BREAST US LT (04/08/2012 11:31 AM SPECIAL POLICE OFFICER) Anatomical Region Laterality Modality Breast Left Ultrasound 04/08/2012 11:1 3 AM SPECIAL POLICE OFFICER Impressions 04/08/2012 8:55 PM SPECIAL POLICE OFFICER IMPRESSION: Bilateral diagnostic exam and directed left breast ultrasound was performed today. The mammogram is unremarkable as well as the directed left breast ultrasound. Therefore clinical correlation is recommended regarding the reported symptoms. Patient received the result and recommendation letter. Spencer 1140 AM - uploaded from [employer] - [facility]-[place] 04/08/2012 8:55 PM SPECIAL POLICE OFFICER REASON FOR EXAM: Patient is reporting to [...] by the Computer Aided Detection System (CAD), [employer] ImageChecker, Version 8.3. LEFT BREAST ULTRASOUND: Sonographic [...] by the Computer Aided Detection System (CAD), [employer] ImagePitchbritecker, Version 8.3. LEFT BREAST ULTRASOUND: Sonographic evaluation [...] letter. DB/allie 1140 AM - uploaded from [employer] - us Srinivasa Anderson MD MAMMO ORDERABLES Final Result documented in this encounter Visit Diagnoses Diagnosis Breast swelling Lump or mass in breast Breast swelling Lump or mass in breast documented in this encounter Care Teams Cryptologic Supervisor Relationship Specialty Start Date End Date Srinivasa Anderson MD [address] [address] PCP - General 07/18/04 documented as of this encounter
--- OUTSIDE RECORDS SUMMARY | 2025-02-18 13:00 | XMS_ITS | Encounter Summary ---
Author Organization [facility] Address [address] [facility] [place] [address] Care Team Providers Care Life Insurance Salesperson Name Role Phone Srinivasa Anderson MD Primary Care Provider [phone] Encounter Details Date Type Department Care Team (Latest Contact Info) Description 03/20/2007 Outpatient Historical [facility] [place] [address] [place] [address] Srinivasa Anderson MD [address] [place] [address] Other Testicular Hypofunction (Primary Dx) Social History Tobacco Use Types Packs/Day Years Used Date Smoking Tobacco: Never Assessed Sex and Gender Information Value Date Recorded Sex Assigned at Not on file 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
--- OUTSIDE RECORDS SUMMARY | 2025-02-18 13:00 | XMS_ITS | Encounter Summary ---
Author Organization [facility] Address [address] [place] [address] Care Team Providers Care Laundry Machine Mechanic Name Role Phone Srinivasa Anderson MD Primary Care Provider Reason for Visit * Reason Comments Remote Monitoring Encounter Details Date Type Department Care Team (Late st Contact Info) Description 02/18/2025 Telephone [facility] [place] [place] [address] Srinivasa Anderson MD [address] [place] [address] Remote Monitoring Social History Tobacco Use Types Packs/Day Years [...] on file Legal Sex Male 6:28 AM COLLECTIONS REPRESENTATIVE Gender Identity Not on file Sexual Orientation Not on file documented as of this encounter Miscellaneous Notes * Telephone Encounter - Ciarra Carroll - 02/18/2025 8:32 AM CDT Copied from [facility] #[id number]. Topic: Patient Reported Outcome Metrics >> Feb 18, 2025 8:32 AM Ciarra Smith wrote: Caller Name: Sultana Callback Number: Telephone Information: Call Notes: Rheumatology clinic is needing all of the patients test results before they can get himscheduled. Please send. She did not have their contact information. documented in this encounter Plan of Treatment Upcoming Encounters Date Type Department Care Team (Late st Contact Info) Description 02/24/2025 3:00 PM COLLECTIONS REPRESENTATIVE Office Visit [facility] [place] [place] [address] Srinivasa Anderson MD [address] [place] [address] 03/26/2025 11:40 AM COLLECTIONS REPRESENTATIVE Office Visit [facility] [address] [place] [address] Dominic Haskins CRNP [address] [place] [address] 07/08/2025 1:00 PM CDT Office Visit [facility] [address] [place] [address] Kodak Samuel MD [address] [place] [address] documented as of this encounter Visit Diagnoses Not on filedocumented in this encounter Care Teams Laundry Machine Mechanic Relationship Specialty Start Date End Date Srinivasa Anderson MD [address] [phone] PCP - General Family Practice 05/18/24 documented as of this encounter
--- OUTSIDE RECORDS SUMMARY | 2025-02-18 13:00 | XMS_ITS | Encounter Summary ---
Author Organization [facility] Address [address] [facility] [place] [address] Care Team Providers Care Terrazzo Roller Name Role Phone Srinivasa Anderson MD Primary Care Provider [phone] Encounter Details Date Type Department Care Team (Latest Contact Info) Description 01/18/2006 Outpatient Historical [facility] [place] [address] [place] [address] Srinivasa Anderson MD [address] [place] [address] Other Testicular Hypofunction (Primary Dx) Social History Tobacco Use Types Packs/Day Years Used Date Smoking Tobacco: Never Assessed Sex and Gender Information Value Date Recorded Sex Assigned at Not on file 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
--- OUTSIDE RECORDS SUMMARY | 2025-02-18 13:00 | XMS_ITS | Encounter Summary ---
Author Organization [facility] Address [address] [place] [address] Care Team Providers Care Assembler Semiconductor Name Role Phone Srinivasa Anderson MD Primary Care Provider Encounter Details Date Type Department Care Team (Late st Contact Info) Description 05/03/2006 Outpatient Historical [facility] [address] [place] [address] Srinivasa Anderson MD [address] [phone] Social History Tobacco Use Types Packs/Day Years Used Date Smoking Tobacco: Never Assessed Sex and Gender Information Value Date Recorded Sex Assigned at Not on file Legal Sex Male 3:08 AM SCRAP COLLECTOR Gender Identity Not on file Sexual Orientation Not on file documented as of this encounter Plan of Treatment Not on file documented as of this encounter Visit Diagnoses Not on filedocumented in this encounter Care Teams Assembler Semiconductor Relationship Specialty Start Date End Date Srinivasa Anderson MD [address] [facility] [address] [place] [address] PCP - General 07/18/04 documented as of this encounter
--- OUTSIDE RECORDS SUMMARY | 2025-02-18 13:00 | XMS_ITS | Encounter Summary ---
Author Organization [facility] Address [address] [place] [place] [address] Care Team Providers Care Certified Lactation Educator Name Role Phone Srinivasa Anderson MD Primary Care Provider [phone] Encounter Details Date Type Department Care Team (Latest Contact Info) Description 07/25/2005 Outpatient Historical [facility] [address] 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
--- OUTSIDE RECORDS SUMMARY | 2025-02-18 13:00 | XMS_ITS | Encounter Summary ---
Author Organization [facility] Address [address] [place] [address] Care Team Providers Care Director Property Name Role Phone Srinivasa Anderson MD Primary Care Provider [phone] Encounter Details Date Type Department Care Team (Late st Contact Info) Description 06/03/2006 Outpatient Historical [facility] [address] [place] [address] Srinivasa Anderson MD [address] [phone] Social History Tobacco Use Types Packs/Day Years Used Date Smoking Tobacco: Never Assessed Sex and Gender Information Value Date Recorded Sex Assigned at Not on file Legal Sex Male 3:08 AM BLASTING ENTRY SPECIALIST Gender Identity Not on file Sexual Orientation Not on file documented as of this encounter Plan of Treatment Not on file documented as of this encounter Visit Diagnoses Not on filedocumented in this encounter Care Teams Director Property Relationship Specialty Start Date End Date Srinivasa Anderson MD [address] [facility] [address] [place] [address] PCP - General 07/18/04 documented as of this encounter
--- OUTSIDE RECORDS SUMMARY | 2025-02-18 13:00 | XMS_ITS | Encounter Summary ---
Author Organization [facility] Address [address] [facility] [place] [address] Care Team Providers Care Human Resource Advisor Name Role Phone Srinivasa Anderson MD Primary Care Provider [phone] Encounter Details Date Type Department Care Team (Latest Contact Info) Description 02/07/2006 Outpatient Historical [facility] [place] [address] [place] [address] Srinivasa Anderson MD [address] [place] [address] Other Testicular Hypofunction (Primary Dx) Social History Tobacco Use Types Packs/Day Years Used Date Smoking Tobacco: Never Assessed Sex and Gender Information Value Date Recorded Sex Assigned at Not on file Legal Sex Male 3:08 AM VIDEO INTERN Gender Identity Not on file Sexual Orientation Not on file documented as of this encounter Plan of Treatment Not on file documented as of this encounter Visit Diagnoses Diagnosis Other testicular hypofunction- Primary documented in this encounter Care Teams Human Resource Advisor Relationship Specialty Start Date End Date Srinivasa Anderson MD [address] [place] [address] PCP - General 07/18/04 documented as of this encounter
--- OUTSIDE RECORDS SUMMARY | 2025-02-18 13:00 | XMS_ITS | Encounter Summary ---
Author Organization [facility] Address [address] [facility] [place] [address] Care Team Providers Care Cooker Pie Filling Name Role Phone Srinivasa Anderson MD Primary Care Provider [phone] Encounter Details Date Type Department Care Team (Latest Contact Info) Description 10/10/2005 Outpatient Historical [facility] [place] [address] [place] [phone] Zoltan Mahoney MD NO ADDRESS ON FILE Malig John Skin Ear (Primary Dx); Malig John Skin Arm Social History Tobacco Use Types Packs/Day Years Used Date Smoking Tobacco: Never Assessed Sex and Gender Information Value Date Recorded Sex Assigned at Not on file Legal Sex Male 3:08 AM IMPREGNATOR Gender Identity Not on file Sexual Orientation [...] shoulder documented in this encounter Care Teams Cooker Pie Filling Relationship Specialty Start Date End Date Srinivasa Anderson MD [address] [place] [address] PCP - General 07/18/04 documented as of this encounter
--- OUTSIDE RECORDS SUMMARY | 2025-02-18 13:00 | XMS_ITS | Encounter Summary ---
Author Organization [facility] Address [address] [address] Care Team Providers Care Signal Apprentice Name Role Phone Srinivasa Anderson MD Primary Care Provider [phone] Encounter Details Date Type Department Care Team (Latest Contact Info) Description 09/27/2005 Outpatient Historical [facility]- [facility] [place] [address] [place] [address] Zoltan Mahoney MD NO ADDRESS ON FILE Malig John Skin Arm (Primary Dx); Actinic Keratosis; Other Seborrheic Keratosis Social History Tobacco Use Types Packs/Day Years Used Date Smoking Tobacco: Never Assessed Sex and Gender Information Value Date Recorded Sex Assigned at Not on file 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
--- OUTSIDE RECORDS SUMMARY | 2025-02-18 13:00 | XMS_ITS | Encounter Summary ---
Author Organization [facility] Address 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 Topic: CPA Information Request - Order or Referral Request >> Feb 18, 2025 12:28 PM Lala Barbosa wrote: Caller Name: Sultana, (On PHI) Patient/Caregiver Callback Number: [phone] Call Notes: Please call to update, thank you. Caller is requesting: New Lab Order Order: unknown Reason for Request: states that Dr Anderson's office ordered labs today, and they need to be sent to [facility]. I asked what labs needed to be done, and she said she didn't know. documented in this encounter Plan of Treatment Upcoming Encounters Date Type Department Care Team (Late st Contact Info) Description 02/24/2025 3:00 PM GAS SPECIALIST Office Visit [facility] LuisNilay Robles [place] [address] [place] [address] Srinivasa Anderson MD [address] [place] [address] 03/26/2025 11:40 AM GAS SPECIALIST Office Visit [facility] [address] [place] [address] Dominic Haskins CRNP [address] [place] [address] 07/08/2025 1:00 PM CDT Office Visit [facility] [address] [place] [address] Kodak Samuel MD [address] [place] [address] documented as of this encounter Visit Diagnoses Not on filedocumented in this encounter Care Teams Hog Dropper Relationship Specialty Start Date End Date Srinivasa Anderson MD [address] [address] PCP - General Family Practice 05/18/24 documented as of this encounter
--- OUTSIDE RECORDS SUMMARY | 2025-02-18 13:00 | XMS_ITS | Encounter Summary ---
Author Organization [facility] Address [address] [facility] [facility] [place] [address] Care Team Providers Care Litigation Legal Assistant Name Role Phone Srinivasa Anderson MD Primary Care Provider [phone] Encounter Details Date Type Department Care Team (Late st Contact Info) Description 05/15/2007 Outpatient [facility] [place] [address] [place] [address] Srinivasa Anderson MD [address] [place] [address] Social History Tobacco Use Types Packs/Day Years Used Date Smoking Tobacco: Never Assessed Sex and Gender Information Value Date Recorded Sex Assigned at Not on file 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
--- OUTSIDE RECORDS SUMMARY | 2025-02-18 13:00 | XMS_ITS | Encounter Summary ---
Author Organization [facility] Address 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 Gender Identity Not on file Sexual Orientation Not on file documented as of this encounter Plan of Treatment Upcoming Encounters Date Type Department Care Team (Late st Contact Info) Description 02/24/2025 3:00 PM MACHINE STRIPPER Office Visit [facility] [place] [address] [place] [address] Srinivasa Anderson MD [address] [place] [address] 03/26/2025 11:40 AM MACHINE STRIPPER Office Visit [facility] [address] [place] [address] Dominic Haskins CRNP [address] [place] [address] 07/08/2025 1:00 PM CDT Office Visit [facility] [address] [place] [address] Kodak Samuel MD [address] [place] [address] documented as of this encounter Visit Diagnoses Not on filedocumented in this encounter Care Teams Nursery School Attendant Relationship Specialty Start Date End Date Srinivasa Anderson MD [address] [place] [address] PCP - General Family Practice 05/18/24 documented as of this encounter
--- OUTSIDE RECORDS SUMMARY | 2025-02-18 13:00 | XMS_ITS | Encounter Summary ---
Author Organization [facility] Address 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); Depressive Disorder, not Elsewhere Classified Social History Tobacco Use Types Packs/Day Years Used Date Smoking Tobacco: Never Assessed Sex and Gender Information Value Date Recorded Sex Assigned at Not on file 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
--- OUTSIDE RECORDS SUMMARY | 2025-02-18 13:00 | XMS_ITS | Encounter Summary ---
Author Organization [facility] Address [address] [place] [address] Care Team Providers Care Access Control Specialist Name Role Phone Srinivasa Anderson MD Primary Care Provider [phone] Encounter Details Date Type Department Care Team (Latest Contact Info) Description 03/10/2007 Outpatient Historical [facility] Services [address] 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
--- OUTSIDE RECORDS SUMMARY | 2025-02-18 13:00 | XMS_ITS | Encounter Summary ---
Author Organization [facility] Address [address] [place] [address] Care Team Providers Care Vision Mixer Name Role Phone Srinivasa Anderson MD Primary Care Provider [phone] Encounter Details Date Type Department Care Team (Late st Contact Info) Description 02/17/2025 Lab Requisition [facility] Laboratory Services [address] 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 Gender Identity Not on file Sexual Orientation Not on file documented as of this encounter Plan of Treatment Upcoming Encounters Date Type Department Care Team (Late st Contact Info) Description 02/24/2025 3:00 PM MACHINED PARTS QUALITY INSPECTOR Office Visit [facility] [address] [place] [place] [address] Srinivasa Anderson MD [address] [place] [address] 03/26/2025 11:40 AM MACHINED PARTS QUALITY INSPECTOR Office Visit [facility] [address] [place] [address] Dominic Haskins CRNP [address] [place] [address] 07/08/2025 1:00 PM CDT Office Visit [facility] [address] [place] [address] Kodak Samuel MD [address] [place] [address] documented as of this encounter Procedures Procedure Name Priority Date/Time Associated Diagnosis Comments CBC WITH DIFFERENTIAL Stat 02/17/2025 2:37 PM CDT Shortness of breath BRAIN NATRIURETIC PEPTIDE, BNP OR PROBNP Stat 02/17/2025 2:37 PM CDT Shortness of breath COMPREHENSIVE METABOLIC PANEL Stat 02/17/2025 2:37 PM CDT Shortness of breath documented in this encounter Results * (ABNORMAL) COMPREHENSIVE METABOLIC PANEL (02/17/2025 2:37 PM CDT) SODIUM 144 136 - 145 mmol/L 02/17/2025 4:47 PM CDT [facility] LABORATORY SERVICES [facility] POTASSIUM 4.8 3.5 - 5.1 mmol/L 02/17/2025 4:[address] [facility] CHLORIDE 108(H) 98 - 107 mmol/L 02/17/2025 4:[address] [facility] CO2 24 22 - 29 mmol/L 02/17/2025 4:[address] [facility] CALCIUM 9.0 8.8 - 10.2 mg/dL 02/17/2025 4:[address] [facility] BUN 60(H) 8 - 23 mg/dL 02/17/2025 4:[address] [facility] CREATININE 1.76(H) 0.67 - 1.17 mg/dL 02/17/2025 4:[address] [facility] Comment:The GFR result is no t clinically significant on patients <18 or >70 years of age. GLUCOSE 144(H) 74 - 99 mg/dL 02/17/2025 4:[address] [facility] TOTAL PROTEIN 7.5 6.4 - 8.3 g/dL 02/17/2025 4:[address] [facility] ALBUMIN 3.9 3.5 - 5.2 g/dL 02/17/2025 4:[address] [facility] BILIRUBIN TOTAL 0.8 0.0 - 1.0 mg/dL 02/17/2025 4:[address] [facility] ALKALINE PHOSPHATASE 104 40 - 129 U/L 02/17/2025 4:[address] [facility] AST 35 10 - 50 U/L 02/17/2025 4:[address] [facility] ALT 51(H) <=50 U/L 02/17/2025 4:[address] [facility] GFR 37 mL/min/1. 73 sq meter 02/17/2025 4:[address] [facility] Comment:eGFR calculated with 2020 CKD-EPI equation. Vegetarian diet, extremely high or low muscle mass, and may affect results. Cystatin C with Glomerular Filtration Rate is a suitable alternative for these patients. ANION GAP 12 9 - 20 mmol/L 02/17/2025 4:47 PM CDT [facility] Blood Collection / Unknown 02/17/2025 2:37 PM CDT 02/17/2025 4:03 PM CDT us Fran Mancilla NP CHEMISTRY ORDERABLES Final Resu lt [facility] CLIA # [id number] [facility] [address] [place] [address] * (ABNORMAL) CBC WITH DIFFERENTIAL (02/17/2025 2:37 PM CDT) Pathologist [facility] WBC 9.4 4.8 - 10.8 K/uL 02/17/2025 4:20 PM CDT [facility] RBC 3.77(L) 4.60 - 6.20 M/uL 02/17/2025 4:20 PM CDT [facility] HEMOGLOBIN 10.6(L) 14.0 - 18.0 g/dL 02/17/2025 4:20 PM CDT [facility] HEMATOCRIT 34.7(L) 41.0 - 53.0 % 02/17/2025 4:20 PM CDT [facility] MCV 92.0 84.0 - 103.0 fL 02/17/2025 4:20 PM CDT [facility] MCH 28.1 27.0 - 34.0 pg 02/17/2025 4:20 PM CDT [facility] MCHC 30.5 30.0 - 35.0 g/dL 02/17/2025 4:20 PM CDT [facility] PLATELETS 137(L) 140 - 440 K/uL 02/17/2025 4:20 PM CDT [facility] MPV 12.3 8.9 - 12.8 fL 02/17/2025 4:20 PM CDT [facility] RDW 19.1(H) 11.0 - 14.5 % 02/17/2025 4:20 PM CDT [facility] RDW-STDEV 63.8(H) 37.0 - 54.0 fL 02/17/2025 4:20 PM CDT [facility] NEUTROPHILS 83(H) 42 - 75 % 02/17/2025 4:20 PM CDT [facility] LYMPHOCYTES 8(L) 24 - 44 % 02/17/2025 4:20 PM CDT [facility] MONOCYTES 7 2 - 10 % 02/17/2025 4:20 PM CDT [facility] EOSINOPHILS 0 0 - 7 % 02/17/2025 4:20 PM CDT [facility] BASOPHILS 0 0 - 1 % 02/17/2025 4:20 PM CDT [facility] IMMATURE GRANULOCYTES 2 0 - 2 % 02/17/2025 4:20 PM CDT [facility] NEUTROPHIL ABSOLUTE 7.73 2.00 - 8.00 K/uL 02/17/2025 4:20 PM CDT [facility] LYMPHOCYTE ABSOLUTE 0.75(L) 1.20 - 4.00 K/uL 02/17/2025 4:20 PM CDT [facility] MONOCYTE ABSOLUTE 0.67(H) 0.10 - 0.60 K/uL 02/17/2025 4:20 PM CDT [facility] EOSINOPHIL ABSOLUTE 0.01 0.00 - 0.70 K/uL 02/17[facility]25 [facility] BASOP[facility]IL[facility]OL[facility] 0.02 0.00 - 0.20 K/uL 02/17/2025 4:20 PM CDT [facility] IMMATURE GRANULOCYTES ABSOLUTE 0.19(H) 0.00 - 0.10 K/uL 02/17/2025 4:[address] [facility] SMEAR REVIEWED: NA - Not Applicable 02/17/2025 4:[address] [facility] Blood Collection / Unknown 02/17/2025 2:37 PM CDT 02/17/2025 4:03 PM CDT us Fran Mancilla NP HEMATOLOGY ORDERABLES Final Res ult Performing Organization Address [facility] Co de Phone Number [facility] CLIA # [id number] [address] [address] * (ABNORMAL) BRAIN NATRIURETIC PEPTIDE, BNP OR PROBNP (02/17/2025 2:37 PM CDT) PROBNP, N TERMINAL 5,161(H) 0 - 450 pg/mL 02/17/2025 4:44 PM CDT [facility] Comment: INTERPRETIVE COMMENT based on diagnosis: Diagnostic NT pro-BNP cutoffs for Heart Failure in the absence of renal failure is suggested for the following ranges <75 years: <125 pg/mL >=75 years: <450 pg/mL Exclusionary rule out cut-point for Acute Decompensated Heart Failure(ADHF) All ages: <300 pg/mL Diagnostic NT pro-BNP cutoffs for Acute Decompensated Heart Failure(ADHF) in the absence of renal failure is suggested for the following ages <50 years: > 450 pg/mL 50-75 years: > 900 pg/mL >75 years: >1800 pg/mL Blood Collection / Unknown 02/17/2025 2:37 PM CDT 02/17/2025 4:03 PM CDT us Fran Mancilla NP CHEMISTRY ORDERABLES Final Resu lt Performing Organization Address [facility]/ZIP Co de Phone Number [facility] CLIA # [id number] [address] [id number] documented in this encounter Visit Diagnoses Diagnosis Shortness of breath documented in this encounter Care Teams Vision Mixer Relationship Specialty Start Date End Date Srinivasa Anderson MD [address] [address] PCP - General Family Practice 05/18/24 documented as of this encounter
--- OUTSIDE RECORDS SUMMARY | 2025-02-18 13:00 | XMS_ITS | Encounter Summary ---
Author Organization [facility] Address [address] [place] [address] Care Team Providers Care Partner Alliance Manager Name Role Phone Srinivasa Anderson MD Primary Care Provider [phone] Reason for Referral * Eval and Treat (Routine) - Pending Review Specialty Diagnoses / Procedures Referred By Contac t Referred To Contact Hematology and Oncology Diagnoses Low platelet count Procedures [place] OFFICE/OUTPATIENT ESTABLISHED MOD MDM 30 MIN [place] OFFICE/OUTPATIENT NEW MODERATE MDM 45 MINUTES Fran Mancilla NP [address] [place] [address] Phone: tel: fax: [facility] [place] [address] [place] [address] Phone: tel: fax: Referral ID Status Reason Start Date Expiration Date V isits Requested Visits Authorized [id number] Pending Review 02/18/2025 02/18/2026 1 1 * Radiology Services (Routine) - Authorized Specialty Diagnoses / Procedures Referred By Contac t Referred To Contact Radiology Diagnoses Elevated liver enzymes Procedures US ABDOMEN COMPLETE Fran Mancilla [employer] [address] [place] [address] Phone: tel: fax: [facility] Ultrasound [place] [address] [place] [address] Phone: tel: fax: Referral ID Status Reason Start Date Expiration Date Visits Requested Visits Authorized [id number] Authorized MT[facility] View CTS to Schedule 03/21/2026 1 1 Encounter Details Date Type Department Care Team (Late st Contact Info) Description 02/18/2025 Results Follow-Up [facility] Yesenia Robles [place] [place] [address] Fran Mancilla, VERONIQUE [address] [place] [address] BRAIN NATRIURETIC PEPTIDE, BNP OR PROBNP, CBC WITH DIFFERENTIAL, COMPREHENSIVE METABOLIC PANEL Social History Tobacco Use Types Packs/Day Years [...] on file Legal Sex Male 6:28 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 CMP shows elevated serum creatinine and elevated liver enzymes. Abdominal ultrasound has been ordered for further evaluation of elevated liver enzymes. However, due to patient having elevated creatinine which shows decreased kidney function and a significantly elevated BNP which is concerning of heart failure he was recommended by Dr. Dominguez for patient to be seen in the ER for this. CBC shows low hemoglobin and hematocrit as well as low platelets. Referral to hematology has been made for follow-up related to this. Questions answered to their satisfaction. Teach-back method used to ensure understanding. Voiced understanding. Patient is asking for the abdominal US to be sent to [facility] because that is the closest ER for him to go to. Selena RN * Result Encounter Note - Fran Mancilla NP - 02/18/2025 8:20 AM CDT CMP shows elevated serum creatinine and elevated liver enzymes. Abdominal ultrasound has been ordered for further evaluation of elevated liver enzymes. However, due to patient having elevated creatinine which shows decreased kidney function and a significantly elevated BNP which is concerning of heart failure he was recommended by Dr. Dominguez for patient to be seen in the ER for this. CBC shows low hemoglobin and hematocrit as well as low platelets. Referral to hematology has been made for follow-up related to this. documented in this encounter Plan of Treatment Upcoming Encounters Date Type Department Care Team (Late st Contact Info) Description 02/24/2025 3:00 PM CHILD DEVELOPMENT CONSULTANT Office Visit [facility] Yesenia [place] [place] [address] Srinivasa Anderson MD [address] [place] [address] 03/26/2025 11:40 AM CHILD DEVELOPMENT CONSULTANT Office Visit [facility] [address] [place] [address] Dominic Haskins CRNP [address] [place] [address] 07/08/2025 1:00 PM CDT Office Visit [facility] [address] [facility] [address] [place] [address] Kodak Samuel MD [address] [facility] [address] [place] [address] Scheduled Orders Name Type Priority Associated Diagnoses Orde r Schedule US ABDOMEN COMPLETE Imaging Routine Elevated liver enzymes 1 Occurrences starting 02/18/2025 until 02/18/2026 Scheduled Referrals Name Type Priority Associated Diagnoses Order Schedule AMB REFERRAL TO HEMATOLOGY ONCOLOGY Outpatient Referral Routine Low platelet count Ordered: 02/18/2025 documented as of this encounter Visit Diagnoses Diagnosis Low platelet count- Primary Elevated liver enzymes Nonspecific elevation of levels of transaminase or lactic acid dehydrogenase (LDH) documented in this encounter Care Teams Partner Alliance Manager Relationship Specialty Start Date End Date Srinivasa Anderson MD [address] [facility] [address] [place] [address] PCP - General Family Practice 05/18/24 documented as of this encounter
--- OUTSIDE RECORDS SUMMARY | 2025-02-18 13:00 | XMS_ITS | Encounter Summary ---
Author Organization [facility] Address [address] [place] [address] Care Team Providers Care Engine Room Operator Name Role Phone Srinivasa Anderson MD Primary Care Provider [phone] Encounter Details Date Type Department Care Team (Latest Contact Info) Description 11/21/2006 Outpatient Historical [facility] [place] [place] [address] Srinivasa Anderson MD [address] [place] [address] Other Testicular Hypofunction (Primary Dx) Social History Tobacco Use Types Packs/Day Years Used Date Smoking Tobacco: Never Assessed Sex and Gender Information Value Date Recorded Sex Assigned at Not on file 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
--- OUTSIDE RECORDS SUMMARY | 2025-02-18 13:00 | XMS_ITS | Encounter Summary ---
Author Organization [facility] Address [address] [place] [address] Care Team Providers Care Stamp Classifier Name Role Phone Srinivasa Anderson MD Primary Care Provider [phone] Encounter Details Date Type Department Care Team (Late st Contact Info) Description 04/17/2007 Outpatient Historical [facility] [place] [place] [address] Srinivasa Anderson MD [address] [place] [address] Social History Tobacco Use Types Packs/Day Years Used Date Smoking Tobacco: Never Assessed Sex and Gender Information Value Date Recorded Sex Assigned at Not on file 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
--- OUTSIDE RECORDS SUMMARY | 2025-02-18 13:00 | XMS_ITS | Encounter Summary ---
Author Organization [facility] Address [address] [place] [address] Care Team Providers Care Structural Fitter Name Role Phone Srinivasa Anderson MD Primary Care Provider [phone] Encounter Details Date Type Department Care Team (Latest Contact Info) Description 12/21/2005 Outpatient Historical [facility] [place] [place] [address] Srinivasa Anderson MD [address] [place] [address] Other Malaise and Fatigue (Primary Dx); Other Testicular Hypofunction; Depressive Disorder, not Elsewhere Classified Social History Tobacco Use Types Packs/Day Years Used Date Smoking Tobacco: Never Assessed Sex and Gender Information Value Date Recorded Sex Assigned at Not on file 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
--- OUTSIDE RECORDS SUMMARY | 2025-02-18 13:00 | XMS_ITS | Encounter Summary ---
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, Uncontrolled (Primary Dx) Social History Tobacco Use Types Packs/Day Years Used Date Smoking Tobacco: Never Assessed Sex and Gender Information Value Date Recorded Sex Assigned at Not on file Legal Sex Male 3:08 AM QUESTIONED DOCUMENTS EXAMINER Gender Identity Not on file Sexual Orientation Not on file documented as of this encounter Plan of Treatment Not on file documented as of this encounter Visit Diagnoses Diagnosis Type I (juvenile type) diabetes mellitus without mention of complication, uncontrolled- Primary documented in this encounter Care Teams Manager Delivery Relationship Specialty Start Date End Date Srinivasa Anderson MD [address] [facility] [address] [place] [address] PCP - General 07/18/04 documented as of this encounter
--- OUTSIDE RECORDS SUMMARY | 2025-02-18 13:01 | XMS_ITS | Encounter Summary ---
Author Organization [facility] Address [address] [place] [address] Care Team Providers Care Powdered Sugar Pulverizer Operator Name Role Phone Srinivasa Anderson MD Primary Care Provider [phone] Encounter Details Date Type Department Care Team (Latest Contact Info) Description 11/24/2004 Outpatient Historical [facility] [place] [place] [address] Srinivasa Anderson MD [address] [place] [address] TESTICULAR HYPOFUNC NEC (Primary Dx) Social History Tobacco Use Types Packs/Day Years Used Date Smoking Tobacco: Never Assessed Sex and Gender Information Value Date Recorded Sex Assigned at Not on file 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
--- OUTSIDE RECORDS SUMMARY | 2025-02-18 13:01 | XMS_ITS | Encounter Summary ---
Author Organization [facility] Address [address] [facility] [place] [address] Care Team Providers Care Teaching Music Lessons Name Role Phone Srinivasa Anderson MD Primary Care Provider [phone] Encounter Details Date Type Department Care Team (Latest Contact Info) Description 06/28/2004 Outpatient Historical [facility] [place] [place] [address] Srinivasa Anderson MD [address] [place] [address] PULM EMBOLISM/INFARCT IATROGENIC (CMS/HCC) (Primary Dx); PERNICIOUS ANEMIA; Benign amado lg bowel; NOCTURIA Social History Tobacco Use Types Packs/Day Years Used Date Smoking Tobacco: Never Assessed Sex and Gender Information Value Date Recorded Sex Assigned at Not on file 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
--- OUTSIDE RECORDS SUMMARY | 2025-02-18 13:01 | XMS_ITS | Clinical Summary ---
Author Organization 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 Gender Identity Not on file Sexual Orientation Not on file Occupation Industry Job Start Date Job End Date Not on file Not on file Not on file Not on file Last Filed Vital Signs Vital Sign Reading Time Taken Comments Blood Pressure 118/84 06/23/2020 11:43 AM WATERPROOF BAG CUTTING MACHINE OPERATOR Pulse 60 06/23/2020 11:43 AM WATERPROOF BAG CUTTING MACHINE OPERATOR Temperature 36.4 C (97.6 F) 02/19/2020 3:25 PM CDT Respiratory Rate 16 02/19/2020 3:25 PM CDT Oxygen Saturation 99% 06/23/2020 11:43 AM WATERPROOF BAG CUTTING MACHINE OPERATOR Inhaled Oxygen Concentration - - Weight 78.5 kg (173 lb) 06/23/2020 11:43 AM WATERPROOF BAG CUTTING MACHINE OPERATOR Height 191.8 cm (6' 3.5 ) 06/23/2020 11:43 AM CS T Body Mass Index 21.34 06/23/2020 11:43 AM WATERPROOF BAG CUTTING MACHINE OPERATOR Plan of Treatment Health Maintenance Due Date [...] history exists Medical Devices Implanted Type Area Acoustic Warfare Analyst Device Identifier Shelf Expiration Date Model / Serial / Lot Lens Io Tecnis 1pc 22.0 [id number] - [id number] Implanted:Qty: 1 on 08/23/2016 by Dominic Peralta MD at [facility] Left: Eye [employer] 10/20/2019 [id number] / [id number] / Lens Io Tecnis 1pc 22.5 [id number] - [id number] Implanted:Qty: 1 on 09/06/2016 by Dominic Peralta MD at [facility] Right: Eye [employer] 12/19/2019 [id number] / [id number] / Procedures Procedure Name Priority Date/Time Associated Diagnosis Comments MICROALBUMIN/CREATI NINE RATIO, RANDOM UR Routine 11/09/2019 9:43 AM CDT Diabetic polyneuropathy associated with type 2 diabetes mellitus ([facility]) LIPID PANEL Routine 11/09/2019 9:43 AM CDT Diabetic polyneuropathy associated with type 2 diabetes mellitus ([facility]) HEMOGLOBIN A1C Routine 11/09/2019 9:43 AM CDT Diabetic polyneuropathy associated with type 2 diabetes mellitus ([facility]) HM DIABETES EYE EXAM Routine 11/17/2018 ENDOSCOPY, [...] PM CDT [facility] Urine URINE SPECIMEN OBTAINED BY CLEAN CATCH PROCEDURE / Unknown Collection / Unknown 11/09/2019 9:43 AM CDT 11/09/2019 8:19 PM CDT [facility]ORATORY SERVICES-[facility] - 11/09/2019 9:33 PM CDT Condition Microalbumin/Creat ratio Normal Males <17 Normal Females <25 Microalbuminuria Males 17-299 Microalbuminuria Females 25-299 Overt proteinuria >=300 us Srinivasa Anderson MD URINE ORDERABLES Final Result [facility] CLIA# [id number] [address] [place] [address] * (ABNORMAL) HEMOGLOBIN A1C (11/09/2019 9:43 AM CDT) HEMOGLOBIN A1C 6.2(H) See Comment % 11/09/2019 9:37 PM CDT [facility] EST. AVG GLUCOSE, A1C 131 mg/dL 11/09/2019 9:37 PM CDT [facility] Blood Venipuncture / Unknown 11/09/2019 9:43 AM CDT 11/09/2019 8:23 PM CDT [facility] - 11/09/2019 9:37 PM CDT HGB A1C INTERPRETATION NORMAL: <5.7% PRE-DIABETES: 5.7 - 6.4% DIABETES: 6.5% OR GREATER Falsely low A1C measurements can occur when: 1. Anemia and/or hemolytic anemia is present. 2. Hemoglobin variants present. 3. Renal failure. 4. Transfusion of blood product in the last 120 days. We recommend ordering a fructosamine test(XCK6102) to more accurately assess glycemic status if any of the above conditions are present. us Srinivasa Anderson MD CHEMISTRY ORDERABLES Final Resul t [facility] CLIA# [id number] [address] [place] [address] * (ABNORMAL) LIPID PANEL (11/09/2019 9:43 AM CDT) [facility] CHOLESTEROL 189 <200 mg/dL 11/09/2019 9:10 PM CDT [facility] TRIGLYCERIDE 102 <150 mg/dL 11/09/2019 9:10 PM T [facility] HDL 47 40 - 59 mg/dL 11/09/2019 9:10 PM CDT [facility] LDL CALCULATED 122(H) <100 mg/dL 11/09/2019 9:10 PM T [facility] NON-HDL CHOLESTEROL 142(H) <130 mg/dL 11/09/2019 9:10 PM T [facility] Blood Venipuncture / Unknown 11/09/2019 9:43 AM CDT 11/09/2019 8:24 PM CDT Narrative [facility]-LOPEZ YOMAIRA - 11/09/2019 9:10 PM [...] [facility]# [id number] [address] [place] [address] * DIABETES EYE EXAM (11/17/2018) us Abstract Spg Provider HEALTH MAINTENANCE Final R esult from Last 3 Months or Most Recently Relevant to Health Maintenance Insurance [address] [place] [address] MEDICARE PART A AND B AAR SUPP [address] [place] [id number] RX [employer] RX Member Subscriber Plan / Payer (Ef fective 2005-Present) Name:Moiz Hernandez Relation to Subscriber:Self Name:Moiz Hernandez Payer ID:Not on file Group ID:[id number] Type:RX Medicare Part D Address: [place] [place] [address] [place] Medicare Part B Advance Directives For more information, please contact: [phone] Documents on File Type Date Recorded Patient Forestry Aide Expl anation Advance Directive Living Will 07/23/2012 [...] 10:57 AM 08/13/2009 2:32 AM Care Teams Integrated Circuits Inspector Relationship Specialty Start Date End Date Srinivasa Anderson MD [address] [address] PCP - General 07/18/04
--- OUTSIDE RECORDS SUMMARY | 2025-02-18 13:01 | XMS_ITS | Encounter Summary ---
Author Organization [facility] Address [address] [place] [address] Care Team Providers Care Registered Pharmacist Name Role Phone Srinivasa Anderson MD Primary Care Provider [phone] Encounter Details Date Type Department Care Team (Latest Contact Info) Description 11/10/2003 Outpatient Historical 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
--- OUTSIDE RECORDS SUMMARY | 2025-02-18 13:01 | XMS_ITS | Encounter Summary ---
Author Organization [facility] Address [address] [place] [address] [address] Care Team Providers Care Cattle Shipper Name Role Phone Srinivasa Anderson MD Primary Care Provider [phone] Encounter Details Date Type Department Care Team (Latest Contact Info) Description 10/26/2004 Outpatient Historical [facility] Dermatology- [facility] [place] [address] [place] [id number] Zoltan Mahoney MD NO ADDRESS ON FILE Malig amado skin arm (Primary Dx); ACTINIC KERATOSIS; Inflamed seborr keratos; SEBORRHEIC KERATOSIS NOS Social History Tobacco Use Types Packs/Day Years Used Date Smoking Tobacco: Never Assessed Sex and Gender Information Value Date Recorded Sex Assigned at Not on file 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 Sex Male 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 Gender Identity Not on file Sexual Orientation Not on file documented as of this encounter Plan of Treatment Not on file documented as of this encounter Visit Diagnoses Diagnosis 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
--- OUTSIDE RECORDS SUMMARY | 2025-02-18 13:01 | XMS_ITS | Encounter Summary ---
Author Organization [facility] Address [address] [place] [address] Care Team Providers Care Social Media Assistant Name Role Phone Srinivasa Anderson MD Primary Care Provider [phone] Encounter Details Date Type Department Care Team (Latest Contact Info) Description 02/15/2004 Outpatient Historical [facility] Imaging Services-Nilay Robles [place] [address] [place] [address] Mark Lux MD [address] [place] [phone] HEMATURIA (Primary Dx) Social History Tobacco Use Types Packs/Day Years Used Date Smoking Tobacco: Never Assessed Sex and Gender Information Value Date Recorded Sex Assigned at Not on file 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
--- OUTSIDE RECORDS SUMMARY | 2025-02-18 13:01 | XMS_ITS | Encounter Summary ---
Author Organization [facility] Address [address] [place] [address] Care Team Providers Care Seasoner Name Role Phone Srinivasa Anderson MD Primary Care Provider [phone] Encounter Details Date Type Department Care Team (Latest Contact Info) Description 04/25/2004 Outpatient Historical [facility] [place] [place] [address] Srinivasa Anderson MD [address] [place] [address] PULM EMBOLISM/INFARCT NOS (CMS/HCC) (Primary Dx); HYPERTENSION NOS Social History Tobacco Use Types Packs/Day Years Used Date Smoking Tobacco: Never Assessed Sex and Gender Information Value Date Recorded Sex Assigned at Not on file 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
--- OUTSIDE RECORDS SUMMARY | 2025-02-18 13:01 | XMS_ITS | Encounter Summary ---
Author Organization [facility] Address [address] [facility] [address] [place] [address] Care Team Providers Care Staff Development Manager Name Role Phone Srinivasa Anderson MD Primary Care Provider [phone] Encounter Details Date Type Department Care Team (Latest Contact Info) Description 01/17/2005 Outpatient Historical [facility] Imaging Services-Nilay Robles [place] [address] [place] [address] Juma Egn, DPM [address] [place] [address] BUNION (Primary Dx) Social History Tobacco Use Types Packs/Day Years Used Date Smoking Tobacco: Never Assessed Sex and Gender Information Value Date Recorded Sex Assigned at Not on file Legal Sex Male 3:08 AM ANATOMIC PATHOLOGIST Gender Identity Not on file Sexual Orientation Not on file documented as of this encounter Plan of Treatment Not on file documented as of this encounter Visit Diagnoses Diagnosis Bunion- Primary documented in this encounter Care Teams Staff Development Manager Relationship Specialty Start Date End Date Srinivasa Anderson MD [address] [place] [address] PCP - General 07/18/04 documented as of this encounter
--- OUTSIDE RECORDS SUMMARY | 2025-02-18 13:01 | XMS_ITS | Encounter Summary ---
Author Organization [facility] Address [address] [place] [address] Care Team Providers Care Automobile Rental Agent Name Role Phone Srinivasa Anderson MD Primary Care Provider [phone] Encounter Details Date Type Department Care Team (Latest Contact Info) Description 11/30/2003 Outpatient Historical [facility]- [facility] [place] [address] [place] [address] Zoltan Mahoney MD NO ADDRESS ON FILE ACTINIC KERATOSIS (Primary Dx); Inflamed seborr keratos; SEBORRHEIC KERATOSIS NOS Social History Tobacco Use Types Packs/Day Years Used Date Smoking Tobacco: Never Assessed Sex and Gender Information Value Date Recorded Sex Assigned at Not on file Legal Sex Male 3:08 AM NURSING STUDENT Gender Identity Not on file Sexual Orientation Not on file documented as of this encounter Plan of Treatment Not on file documented as of this encounter Visit Diagnoses Diagnosis Actinic keratosis- Primary Inflamed seborr keratos Inflamed seborrheic keratosis Other seborrheic keratosis documented in this encounter Care Teams Automobile Rental Agent Relationship Specialty Start Date End Date Srinivasa Anderson MD [address] [place] [phone] PCP - General 07/18/04 documented as of this encounter
--- OUTSIDE RECORDS SUMMARY | 2025-02-18 13:01 | XMS_ITS | Encounter Summary ---
Author Organization [facility] Address [address] [place] [address] Care Team Providers Care Buzzsaw Operator Name Role Phone Srinivasa Anderson MD Primary Care Provider [phone] Encounter Details Date Type Department Care Team (Latest Contact Info) Description 12/27/2004 Outpatient Historical [facility] [place] [place] [address] Srinivasa Anderson MD [address] [place] [address] TESTICULAR HYPOFUNC NEC (Primary Dx) Social History Tobacco Use Types Packs/Day Years Used Date Smoking Tobacco: Never Assessed Sex and Gender Information Value Date Recorded Sex Assigned at Not on file Legal Sex Male 3: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
--- OUTSIDE RECORDS SUMMARY | 2025-02-18 13:01 | XMS_ITS | Clinical Summary ---
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 10/15/19 20 Active blood sugar diagnostic (Contour Next Test Strips) Strip CHECK BLOOD SUGAR 2 TIMES DAILY DIRECTED DXE11.9 100 Strip 12 04/26/19 21 Active cyanocobalamin (VITAMIN B-12) 1,000 mcg/mL Solution INJECT 1 ML BY IM EVERY 30 DAYS. 10 mL 11 10/26/19 21 Active lancets (TRUEplus Lancets) 28 gauge TESTING GLUCOSE TWICE DAILY 100 Each 12 09/27/19 18 Active carboxymethylcel lulose sodium (REFRESH PLUS) 0.5 % solution Administer 2 Drops in left eye every 4 hours as needed for Discomfort. 1 Each 06/06/19 23 Active fluticasone propionate (FLONASE) 50 mcg/spray [place], Suspension nasal inhaler 1 SPRAY EACH NOSTRIL TWICE A DAY 03/09/20 22 Active traMADoL (ULTRAM) 50 mg tablet Take 50 mg by mouth every 6 hours as needed for Pain. Active polyethylene glycol 3350 (MIRALAX) 17 gram/dose PowderIndication s:Constipation, unspecified constipation type Take 1 Scoop (17 Grams) by mouth 2 times daily. Dissolve in 8 ounces of fluid and drink entire liquid 510 Gram 1 10/23/19 24 Active amLODIPine (NORVASC) 10 mg tablet Take 1 Tablet (10 mg) by mouth daily. 90 Tablet 3 02/03/20 24 Active traZODone (DESYREL) 100 mg tablet TAKE ONE TABLET DAILY AT BEDTIME 30 Tablet 5 08/11/19 25 Active Breo Ellipta 100-25 mcg/dose Disk with Device INHALE 1 PUFF BY MOUTH DAILY for 30 days 09/05/19 Active amoxicillin-clav ulanate (AUGMENTIN) 875-125 mg tablet Take 1 Tablet by mouth 2 times daily. 09/05/19 25 Active tamsulosin (FLOMAX) 0.4 mg capsule TAKE ONE CAPSULE BY MOUTH DAILY 90 Capsule 1 01/15/20 25 Active losartan (COZAAR) 100 mg tablet TAKE ONE TABLET BY MOUTH DAILY 90 Tablet 3 01/26/20 25 Active predniSONE (DELTASONE) 20 mg tablet Take 1 Tablet (20 mg) by mouth daily. 10 Tablet 02/04/20 Active predniSONE (DELTASONE) 5 mg tablet TAKE 1 TABLET BY MOUTH DAILY 90 Tablet 1 02/12/20 25 Active losartan (COZAAR) 100 mg tablet Take 1 Tablet (100 mg) by mouth daily. 90 Tablet 3 11/19/19 24 025 Discontinued predniSONE (DELTASONE) 5 mg tablet TAKE 1 TABLET BY MOUTH DAILY 90 Tablet 1 07/30/19 25 025 Discontinued doxycycline hyclate (VIBRAMYCIN) 100 mg capsule Take 1 Capsule (100 mg) by mouth 2 times daily for 10 days. 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 Intradermal nevus 11/30/2008 06/30/2010 Actinic keratosis 10/16/2007 06/30/2010 Inflamed seborrheic keratosis 10/16/2007 06/30/2010 Other seborrheic keratosis 10/16/2007 0 06/30/2010 Other abnormal blood chemistry 12/23/2013 Anxiety state, unspecified 0 04/30/2018 Encounters Date Type Department Care Team Description 02/18/2025 Telephone [facility] [employer] [place] [address] [place] [address] Srinivasa Anderson MD Needs Orders Written 02/18/2025 Telephone [facility] [employer] [place] [address] [place] [address] Srinivasa Anderson MD Remote Monitoring 02/18/2025 Results Follow-Up [facility] [employer] [place] [address] [place] [id number] Fran Mancilla, EMERGENCY DEPARTMENT NURSE XR CHEST PA AND LATERAL 2 VW 02/18/2025 Results Follow-Up [facility] Juan LuisNilay Robles [place] [address] [place] [address] Fran Mancilla, EMERGENCY DEPARTMENT NURSE BRAIN NATRIURETIC PEPTIDE, BNP OR PROBNP, CBC WITH DIFFERENTIAL, COMPREHENSIVE METABOLIC PANEL 02/17/2025 2:20 PM CDT - 02/17/2025 11:59 PM CDT Hospital Encounter [facility] Travis Marek [address] [place] [address] Fran Mancilla, EMERGENCY DEPARTMENT NURSE Arrived Discharge Disposition: Home or Self Care 02/17/2025 2:00 PM CDT Office Visit [facility] Juan LuisNilay Robles [place] [address] [place] [address] Fran Mancilla, EMERGENCY DEPARTMENT NURSE Shortness of breath (Primary Dx); Rash; Positive ELINOR (antinuclear antibody) 02/17/2025 Lab Requisition [facility] [address] [place] [address] Fran Mancilla, EMERGENCY DEPARTMENT NURSE Shortness of breath 02/11/2025 Refill [facility] Juan LuisNilay Robles [place] [address] [place] [address] Srinivasa Anderson MD 02/09/2025 Orders Only [facility] [employer] [facility] [place] [address] [place] [address] Srinivasa Anderson MD Anemia, unspecified type (Primary Dx); Hypocalcemia 02/09/2025 Telephone [facility] Juan LuisNilay Robles [place] [address] [place] [address] Srinivasa Anderson MD Results 02/05/2025 Nurse Triage [facility] [employer] [facility] [place] [address] [place] [address] Srinivasa Anderson MD 02/04/2025 Telephone [facility] Juan Luis-Nilay Robles [place] [address] [address] Srinivasa Anderson MD Patient Communication 02/04/2025 Results Follow-Up [facility] Juan Luis-Nilay Robles [place] [address] [phone] Fran Mancilla, VERONIQUE C-REACTIVE PROTEIN, CBC WITH DIFFERENTIAL, COMPREHENSIVE METABOLIC PANEL, Additional followed-up results: 4 02/03/2025 2:45 PM CDT Office Visit [facility] Juan Luis-Nilay Robles [place] [address] [address] Fran Mancilla, VERONIQUE Rash (Primary Dx); Type 2 diabetes mellitus without complication, without long-term current use of insulin 01/26/2025 External Device Data STL ABSTRACTION Provider, Abstract 01/23/2025 Refill [facility] Juan Luis-Nilay Robles [place] [address] [address] Srinivasa Anderson MD 01/14/2025 Refill [facility] Juan Luis-Nilay Robles [place] [address] [address] Srinivasa Anderson MD 12/30/2024 Orders Only [facility] [address] 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 Gender Identity Not on file Sexual [...] Mass Index 23.74 02/17/2025 1:22 PM CDT Plan of Treatment Upcoming Encounters Date Type Department Care Team (Late st Contact Info) Description 02/24/2025 3:00 PM WATER QUALITY TECHNICIAN Office Visit [facility] Yesenia Robles [place] [address] [place] [address] Srinivasa Anderson MD [address] [place] [address] 03/26/2025 11:40 AM WATER QUALITY TECHNICIAN Office Visit [facility] [address] [place] [address] Dominic Haskins CRNP [address] [place] [address] 07/08/2025 1:00 PM CDT Office Visit [facility] [address] [facility] [address] [place] [address] Kodak Samuel MD [address] [facility] [address] [place] [address] Health Maintenance Due Date Last Done Comments ZOSTER VACCINE (2 of 3) 02/14/2012 12/20/2011 RSV VACCINE (60+ or ) (1 - 1-dose 75+ series) 2012 DIABETES ANNUAL FOOT EXAM 03/19/2018 03/19/2017, 09/2015 DIABETES MICROALBUMIN ANNUAL SCREEN 11/08/2020 11/09/2019, 12/19/2018, 08/20/2018, Additional history exists DIABETES ANNUAL RETINAL EXAM 07/17/2023, 05/01/2021, 09/03/2019, Additional history exists Traditional Medicare (ACO) A nnual Wellness Visit 06/13/2024 06/12/2023 INFLUENZA VACCINE (#1) 2024 , 03/25/2023, 02/08/2022, Additional history exists COVID-19 Vaccine (3 - 2024-2 6 season) 2024 11/08/2020, 07/15/2020 LDL CHOLESTEROL ANNUAL 08/03/2025 , 11/09/2019, 10/09/2018, Additional history exists DIABETES HBA1C Q 6 MONTHS 08/04/20252024, 08/03/2024, 08/03/2024, Additional history exists DIABETES: A1C (Auto Order) 02/03/202602/03, 08/03/2024, 08/03/2024, Additional history exists COLORECTAL SCREENING 12/01/2027 11/30/2022, 11/30/2022, 08/12/2009 DTAP/TDAP/TD VACCINES (3 - T d or Tdap) 06/02/2032 06/02/2022, 05/25/2008 PNEUMOCOCCAL VACCINE 50+ YEARS Completed 0 01/12/2020, 01/12/2020, 06/03/2014, Additional history exists Medical Devices Implanted Type Area Head Bucker Device Identifier Shelf Expiration Date Model / Serial / Lot Dev Naomi Closure 35mm Watchman Flx [id number] - [id number] Implanted:Qty : 1 on 08/13/2022 at [facility] Cardiovascular Device N/A: Heart [employer] 10/25/2023 [id number] 350 / [id number] / [id number] Mitraclip G4 Dlvry Sys Ntw No Chrg [id number] - [id number] Implanted:Qty : 1 on 02/18/2023 at [facility] Cardiovascular Device Right: Heart [employer] 08/22/2023 [id number] / [id number] / [id number] Closure Perclose Prostyle Sut Mediate [id number] - [id number] Implanted:Qty : 1 on 08/13/2022 by Jaden Vital MD at [facility] Closure Device Right: Groin [employer]- VASC DEVICE 04/21/2024 50519-29 / / [id number] Dev Manta Vasc Closure 18fr 2114 [id number] Implanted:Qty : 1 on 10/30/2022 at [facility] Closure Device Right: Groin [employer] 04/05/2023 [id number] / / [id number] Dev Sealangio Vip 8fr [id number] - [id number] Implanted:Qty : 1 on 10/30/2022 at [facility] Closure Device Left: Groin [employer] 11/19/2022 [id number] / / [id number] Closure Perclose Prostyle Sut Mediate 56498-25 - [id number] Implanted:Qty : 1 on 02/18/2023 at [facility] Closure Device Right: Groin [employer] VASC DEVICE 10/19/2024 48538-78 / / [id number] Closure Perclose Prostyle Sut Mediate 58389-89 - [id number] Implanted:Qty : 1 on 02/18/2023 at [facility] Closure Device Right: Groin [employer] VASC DEV[employer] 10/19/2024 72334-56 / / [id number] Lens Io Tecnis 1pc 22.0 [id number] - [id number] Implanted:Qty : 1 on 08/23/2016 by Dominic Peralta MD Eye Left: Eye [employer] 10/20/2019 [id number] / [id number] / Lens Io Tecnis 1pc 22.5 [id number] - [id number] Implanted:Qty : 1 on 09/06/2016 by Dominic Peralta MD Eye Right: Eye [employer] 12/19/2019 [id number] 25 / [id number] / Mesh Plug Perfix Xlg [id number] - [id number] Implanted:Qty : 1 on 08/13/2023 by Franci Kaplan Jr., MD at [facility] Mesh Left: Abdomen BARD [employer] [id number] 01/18/2028 [id number] / / [id number] Pacemaker Micra Vr 23fr 105cm Transcath Pacing Sys [id number] - [id number] Implanted:Qty : 1 on 10/30/2022 by Mariela Stone MD at [facility] Pacemaker Heart [employer] 01/04/2024 [id number] / [id number] / Vlv Aort Evolut Fx Tavr 34mm Evolutfx-34 - [id number] Implanted:Qty : 1 on 10/30/2022 at [facility] Valve N/A: Heart [employer]- HEART VALVE 06/07/2024 EVOLUTFX -34 / [id number] / Dlvry Sys Evolut Fx 34mm Z-Wicfplds-64 - S\E\240d-Evol utfx-34 Implanted:Qty : 1 on 10/30/2022 at [facility] Valve N/A: Heart [employer]- HEART VALVE 02/02/2024 D-EVOLUT FX-34 / \E\240D- EVOLUTFX -34 / [id number] Leadless Ppm Procedures Procedure Name Priority Date/Time Associated Diagnosis Comments COMPREHENSIVE METABOLIC PANEL Stat 02/17/2025 2:37 PM CDT Shortness of breath CBC WITH DIFFERENTIAL Stat 02/17/2025 2:37 PM CDT Shortness of breath BRAIN NATRIURETIC PEPTIDE, BNP OR PROBNP Stat 02/17/2025 2:37 PM CDT Shortness of breath XR CHEST PA AND LATERAL 2 VW Routine 02/17/2025 2:28 PM CDT Shortness of breath SEDIMENTATION RATE Routine 02/03/2025 3: 11 PM CDT Rash RHEUMATOID FACTOR Routine 02/03/2025 3:1 1 PM CDT Rash HEMOGLOBIN A1C Routine 02/03/2025 3:11 PM CDT Type 2 diabetes mellitus without complication, without long-term current use of insulin COMPREHENSIVE METABOLIC PANEL Routine 02/03/2025 3:11 PM CDT Rash CBC WITH DIFFERENTIAL Routine 02/03/2025 3:11 PM CDT Rash C-REACTIVE PROTEIN Routine 02/03/2025 3: 11 PM CDT Rash ELINOR SCREEN W/REFLEX Routine 02/03/2025 3 :11 PM CDT Rash COMPREHENSIVE METABOLIC PANEL Routine 12/17/2024 9:58 AM CDT COMPREHENSIVE METABOLIC PANEL Routine 12/09/2024 10:51 AM CDT LIPID PANEL Routine 08/03/2024 11:38 AM CDT Mixed hyperlipidemia COLONOSCOPY REPORT 11/30/2022 11 :16 AM CDT HM DIABETES EYE EXAM Routine 07/16/2022 10:57 AM CDT MICROALBUMIN/CREATINI NE RATIO, RANDOM UR Routine 11/09/2019 9:43 AM CDT from Last 3 Months or Most Recently Relevant to Health Maintenance Results * (ABNORMAL) CBC WITH DIFFERENTIAL (02/17/2025 2:37 PM CDT) Only the most recent of2 resultswithin the time period is included. [facility] WBC 9.4 4.8 - 10.8 K/uL 02/17/2025 4:20 PM CDT [facility] RBC 3.77(L) 4.60 - 6.20 M/uL 02/17/2025 4:20 PM CDT [facility] HEMOGLOBIN 10.6(L) 14.0 - 18.0 g/dL 02/17/2025 4:20 PM CDT [facility] HEMATOCRIT 34.7(L) 41.0 - 53.0 % 02/17/2025 4:20 PM CDT [facility] MCV 92.0 84.0 - 103.0 fL 02/17/2025 4:20 PM CDT [facility] MCH 28.1 27.0 - 34.0 pg 02/17/2025 4:20 PM CDT [facility] MCHC 30.5 30.0 - 35.0 g/dL 02/17/2025 4:20 PM CDT [facility] PLATELETS 137(L) 140 - 440 K/uL 02/17/2025 4:20 PM CDT [facility] MPV 12.3 8.9 - 12.8 fL 02/17/2025 4:20 PM CDT [facility] RDW 19.1(H) 11.0 - 14.5 % 02/17/2025 4:20 PM CDT [facility] RDW-STDEV 63.8(H) 37.0 - 54.0 fL 02/17/2025 4:20 PM CDT [facility] NEUTROPHILS 83(H) 42 - 75 % 02/17/2025 4:20 PM CDT [facility] LYMPHOCYTES 8(L) 24 - 44 % 02/17/2025 4:20 PM CDT [facility] MONOCYTES 7 2 - 10 % 02/17/2025 4:20 PM CDT [facility] EOSINOPHILS 0 0 - 7 % 02/17/2025 4:20 PM CDT [facility] BASOPHILS 0 0 - 1 % 02/17/2025 4:20 PM CDT [facility] IMMATURE GRANULOCYTES 2 0 - 2 % 02/17/2025 4:20 PM CDT [facility] NEUTROPHIL ABSOLUTE 7.73 2.00 - 8.00 K/uL 02/17/2025 4:20 PM CDT [facility] LYMPHOCYTE ABSOLUTE 0.75(L) 1.20 - 4.00 K/uL 02/17/2025 4:20 PM CDT [facility] MONOCYTE ABSOLUTE 0.67(H) 0.10 - 0.60 K/uL 02/17/2025 4:20 PM CDT [facility] EOSINOPHIL ABSOLUTE 0.01 0.00 - 0.70 K/uL 02/17/2025 4:20 PM CDT [facility] BASOPHILS ABSOLUTE 0.02 0.00 - 0.20 K/uL 02/17/2025 4:20 PM CDT [facility] IMMATURE GRANULOCYTES ABSOLUTE 0.19(H) 0.00 - 0.10 K/uL 02/17/2025 4:20 PM CDT [facility] SMEAR REVIEWED: NA - Not Applicable 02/17/2025 4:20 PM CDT [facility] Blood Collection / Unknown 02/17/2025 2:37 PM CDT 02/17/2025 4:03 PM CDT us Fran Mancilla NP HEMATOLOGY ORDERABLES Final Res ult [facility] CLIA # [id number] [address] [place] [id number] * (ABNORMAL) BRAIN NATRIURETIC PEPTIDE, BNP OR PROBNP (02/17/2025 2:37 PM CDT) PROBNP, N TERMINAL 5,161(H) 0 - 450 pg/mL 02/17/2025 4:44 PM CDT [facility] Comment: INTERPRETIVE COMMENT based on diagnosis: Diagnostic [...] 2:37 PM CDT 02/17/2025 4:03 PM CDT Fran Mancilla NP CHEMISTRY ORDERABLES Final Resu lt [facility] CLIA # [id number] [address] [place] [address] * (ABNORMAL) COMPREHENSIVE METABOLIC PANEL (02/17/2025 2:37 PM CDT) Only the most recent of4 resultswithin the time period is included. SODIUM 144 136 - 145 mmol/L 02/17/2025 4:47 PM CDT [facility] POTASSIUM 4.8 3.5 - 5.1 mmol/L 02/17/2025 4:47 PM CDT [facility] CHLORIDE 108(H) 98 - 107 mmol/L 02/17/2025 4:47 PM CDT [facility] CO2 24 22 - 29 mmol/L 02/17/2025 4:47 PM CDT [facility] CALCIUM 9.0 8.8 - 10.2 mg/dL 02/17/2025 4:47 PM CDT [facility] BUN 60(H) 8 - 23 mg/dL 02/17/2025 4:47 PM CDT [facility] CREATININE 1.76(H) 0.67 - 1.17 mg/dL 02/17/2025 4:47 PM CDT [facility] Comment:The GFR result is no t clinically significant on patients <18 or >70 years of age. GLUCOSE 144(H) 74 - 99 mg/dL 02/17/2025 4:47 PM CDT [facility] TOTAL PROTEIN 7.5 6.4 - 8.3 g/dL 02/17/2025 4:47 PM CDT [facility] ALBUMIN 3.9 3.5 - 5.2 g/dL 02/17/2025 4:47 PM CDT [facility] BILIRUBIN TOTAL 0.8 0.0 - 1.0 mg/dL 02/17/2025 4:47 PM CDT [facility] ALKALINE PHOSPHATASE 104 40 - 129 U/L 02/17/2025 4:47 PM CDT [facility] AST 35 10 - 50 U/L 02/17/2025 4:47 PM CDT [facility] ALT 51(H) <=50 U/L 02/17/2025 4:47 PM CDT [facility] GFR 37 mL/min/1. 73 sq meter 02/17/2025 4:47 PM CDT [facility] Comment:eGFR calculated with 2020 CKD-EPI equation. Vegetarian diet, extremely high or low muscle mass, and may affect results. Cystatin C with Glomerular Filtration Rate is a suitable alternative for these patients. ANION GAP 12 9 - 20 mmol/L 02/17/2025 4:47 PM CDT [facility] Blood Collection / Unknown 02/17/2025 2:37 PM CDT 02/17/2025 4:03 PM CDT us Fran Mancilla NP CHEMISTRY ORDERABLES Final Resu lt [facility] CLIA # [id number] [address] [address] [place] [address] * XR CHEST PA AND LATERAL 2 [...] NP DIAGNOSTIC IMAGING ORDERABLES F inal Result * (ABNORMAL) SEDIMENTATION RATE (02/03/2025 3:11 PM CDT) ESR (SEDIMENTATION RATE) 25(H) < OR = 20 mm/h [facility] Comment: FASTING:NO FASTING: NO Test Performed at: [facility] [address] [place] [address] Александр Oviedo Blood 02/03/2025 3:11 PM CDT 02/03/2025 3:12 PM CDT us Fran Mancilla NP HEMATOLOGY ORDERABLES Final Res ult [facility] [phone] [facility] [address] [place] [address] * RHEUMATOID FACTOR (02/03/2025 3:11 PM CDT) Pathologist [facility] RHEUMATOID FACTOR <10 <14 IU/mL [facility] Comment: Test Performed at: [facility] [address] [place] [address] Arminda Velasco MD Blood 02/03/2025 3:11 PM CDT 02/03/2025 3:12 PM CDT Fran Mancilla NP CHEMISTRY ORDERABLES Final Resu lt Performing Organization Address [facility]/ZIP Co de Phone Number [facility] [phone] [facility] [place] [address] * (ABNORMAL) C-REACTIVE PROTEIN (02/03/2025 3:11 PM CDT) [facility] CRP 8.8(H) <8.0 mg/L [facility] Comment: FASTING:NO FASTING: NO Test Performed at: [place] [address] [facility] [place] [address] KyaraLuiza Velasco MD Blood 02/03/2025 3:11 PM CDT 02/03/2025 3:12 PM CDT us Fran Manclila NP CHEMISTRY ORDERABLES Final Resu lt Performing Organization Address City/[facility]/ZIP Co de Phone Number [facility] [phone] [facility] [address] [place] [address] * (ABNORMAL) ELINOR SCREEN W/REFLEX (02/03/2025 3:11 PM CDT) [facility] ELINOR SCREEN POSITIVE( A) NEGATIVE [facility] [place] Comment: ELINOR IFA is a first line screen for detecting the presence of up to approximately 150 autoantibodies in various autoimmune diseases. A positive ELINOR IFA result is suggestive of autoimmune disease and reflexes to titer, pattern and the 3 tiered Multiplex 11 Antibody [place]. Testing in the [place] stops at the first positive result, and does not preclude additional positive results. Further laboratory testing may be considered if clinically indicated. For additional information, please refer to http://education.Nousco/faq/HDO317 (This link is being provided for informational/ educational purposes only.) ELINOR TITER 1:1280(H) titer [facility] [place] Comment: Reference Range <1:40 Negative 1:40-1:80 Low Antibody Level >1:80 Elevated Antibody Level ELINOR PATTERN Nuclear, Speckled( A) [facility] [place] Comment: Speckled pattern is associated with mixed connective tissue disease (MCTD), systemic lupus erythematosus (SLE), Sjogren's syndrome, dermatomyositis, and systemic sclerosis/polymyositis overlap. AC-2,4,5,29: Speckled International Consensus on ELINOR Patterns (https://doi.org/10.1515/ejea-7187-6636) DNA AUTOABS DOUBLE STRANDED <1 IU/mL [facility] [place] Comment: IU/mL Interpretation < or = 4 Negative 5-9 Indeterminate > or = 10 Positive LOPEZ IGG AB <1.0 NEG <1.0 NEG AI [facility] [place] NEYDA ABS, SM/MEDIA RELATIONS ASSOCIATE AB <1.0 NEG <1.0 NEG AI [facility] [place] MEDIA RELATIONS ASSOCIATE AB <1.0 NEG <1.0 NEG AI [facility] [place] CHROMATIN (NUCLEOSOMAL) ANTIBODY <1.0 NEG <1.0 NEG AI [facility] [place] SJOGRENS ABS (SSA) >8.0 POS(A) <1.0 NEG AI [facility] [place] SJOGRENS ABS (SSB) >8.0 POS(A) <1.0 NEG AI [facility] [place] SCLERODERMA AB SCL 70 <1.0 NEG <1.0 NEG AI [facility] [place] JO1 AB <1.0 NEG <1.0 NEG AI [facility] [place] Comment: ANTIBODY PREVALENCE IN TIER 2 SS-A and SS-B antibodies are present in >80% Sjogren's syndrome and are considered a diagnostic indicator for this autoimmune disease. However, these antibodies are also present in other autoimmune disorders. SS-A antibodies are seen in 33% to 52% systemic lupus erythematosus (SLE), 42% polymyositis, 23% systemic sclerosis (scleroderma) and 13% mixed connective tissue disease (MCTD). SS-B antibody is also present in 13% to 27% SLE, 5% systemic sclerosis, <2% polymyositis and <2% MCTD. Scl-70 antibody is present in 16% systemic sclerosis, 7% MCTD (especially those with features of systemic sclerosis), 2% to 3% SLE, <2% Sjogren's syndrome and <2% polymyositis. Amy-1 antibody is present in 17% polymyositis, 7% MCTD (especially in those with features of muscle inflammation), and <2% SLE, Sjogren's syndrome and systemic sclerosis. Tier 2 antibodies are present in <2% of normal blood donors. The [place] does not rule out autoimmune disease characterized by other autoantibody specificities such as rheumatoid arthritis, autoimmune hepatitis, primary biliary cirrhosis, autoimmune thyroiditis, Richar's disease, pernicious anemia, autoimmune neuropathies, vasculitis, celiac disease and bullous disease. Please contact your local [facility] laboratory if you are interested in additional testing. ELINOR PROFILE [employer]P [facility] Comment: This finding suggests Sjogren's syndrome. These antibodies may occasionally be positive early in other connective tissue diseases. A positive result at this stage of testing stops further testing, and does not preclude additional positive antibodies. Clinical correlation is required to assess the need for testing additional analytes. FASTING:NO FASTING: NO Test Performed at: [facility] [address] [place] [address] Arminda Velasco MD Blood 02/03/2025 3:11 PM CDT 02/03/2025 3:12 PM CDT us Fran Mancilla NP CHEMISTRY ORDERABLES Final Resu lt [facility] [phone] [place] [phone] * (ABNORMAL) HEMOGLOBIN A1C (02/03/2025 3:11 PM CDT) HEMOGLOBIN A1C 6.2(H) <5.7 % [facility] Comment: For someone without known diabetes, [...] children. ESTIMATED AVERAGE GLUCOSE (MG/DL) 131 mg/dL [facility] ESTIMATED AVERAGE GLUCOSE (MMOL/L) 7.3 mmol/L [facility] Comment: FASTING:NO FASTING: NO Test Performed at: [facility] [address] [place] [address] Arminda Velasco MD Blood 02/03/2025 3:11 PM CDT 02/03/2025 3:12 PM CDT us Fran Mancilla NP CHEMISTRY ORDERABLES Final Resu lt [facility] [phone] [address] * (ABNORMAL) LIPID PANEL (08/03/2024 11:38 AM CDT) [facility] CHOLESTEROL 133 <200 mg/dL [facility] HDL 36(L) > OR = 40 mg/dL [facility] TRIGLYCERIDE 71 <150 mg/dL [facility] LDL CALCULATED 82 mg/dL (calc) [facility] Comment: Reference range: <100 Desirable range <100 mg/dL for primary prevention; <70 mg/dL for patients with CHD or diabetic patients with > or = 2 CHD risk factors. LDL-C is now calculated using the Celine calculation, which is a validated novel method providing better accuracy than the Friedewald equation in the estimation of LDL-C. Wilber SS et al. MAGDA. 2013;310(19): 6178-9778 (http://education.Nousco/faq/SZX414) CHOL/HDL RATIO 3.7 <5.0 (calc) [facility] RR NON-HDL CHOLESTEROL 97 <130 mg/dL (calc) [facility] Comment: For patients with diabetes plus 1 major ASCVD risk factor, treating to a non-HDL-C goal of <100 mg/dL (LDL-C of <70 mg/dL) is considered a therapeutic option. Test Performed at: [facility] [address] [place] [address] Александр Oviedo Blood 08/03/2024 11:3 8 AM CDT 08/03/2024 11:38 AM CDT us Srinivasa Anderson MD CHEMISTRY ORDERABLES Final Resul t [facility] [phone] [facility] [address] [place] [address] * COLONOSCOPY REPORT (11/30/2022 11:16 AM CDT) Narrative Procedure Note Herman Schmitz MD - 11/30/2022 11:16 AM CDT [facility] GI Patient Name: Franci Hernandez Procedure [...] bowel preparation was evaluated using the BBPS ([place] Bowel Preparation Scale) with scores of: Right [...] AM Scope Out: 11:13:34 AM [address], [place] us Herman Schmitz MD GI PROCEDURE ORDERABLES Final Result * DIABETES EYE EXAM (07/16/2022 10:57 AM CDT) us Abstract Provider HEALTH MAINTENANCE Final Resul t * (ABNORMAL) MICROALBUMIN/CREATININE RATIO, RANDOM UR (11/09/2019 9:43 AM CDT) MICROALBUMIN, URINE 5.3 No Reference Range mg/dL 11/09/2019 9:33 PM CDT [facility] CREATININE, URINE 139.7 40.0 - 278.0 mg/dL 11/09/2019 9:33 PM CDT [facility] Comment:Reference Range vari es with fluid intake and diet. MICROALBUMIN/ CREAT RATIO, UR 37.9(H) <17.0 mg/g 11/09/2019 9:33 PM CDT [facility] SERVICES[facility] Urine URINE SPECIMEN OBTAINED BY CLEAN CATCH PROCEDURE / Unknown Collection / Unknown 11/09/2019 9:43 AM CDT 11/09/2019 8:19 PM CDT Narrative [facility] - 11/09/2019 9:33 PM CDT Condition Microalbumin/Creat ratio Normal Males <17 Normal Females <25 Microalbuminuria Males 17-299 Microalbuminuria Females 25-299 Overt proteinuria >=300 Srinivasa Anderson MD URINE ORDERABLES Final Result [facility] CLIA# [id number] [address] [facility] [id number] from Last 3 Months or Most Recently Relevant to Health Maintenance Insurance RR [address] [place] [address] [facility] [address] MEDICARE PART A AND B * Guarantor: FRANCI HERNNADEZ Account Type Relation to Patient Date of Phone Billing Address Personal/Family [address] [place] [address] RX ALLWIN DATA Medicare Part B RX [employer] Medicare Part D Advance Directives For more information, please contact: [phone] * Full Code (Latest Code Status on [...] 5:53 PM 01/29/2023 5:47 PM Care Teams Laborer Steel Handling Relationship Specialty Start Date End Date Srinivasa Anderson MD [address] [id number] PCP - General Family Practice 05/18/24
--- OUTSIDE RECORDS SUMMARY | 2025-02-18 13:01 | XMS_ITS | Encounter Summary ---
Author Organization [facility] Address [address] [facility] [place] [address] Care Team Providers Care Sausage Tier Name Role Phone Srinivasa Anderson MD Primary Care Provider [phone] Encounter Details Date Type Department Care Team (Latest Contact Info) Description 09/23/2002 Outpatient Historical [facility] Dermatology- [facility] [place] [address] [place] [address] Zoltan Mahoney MD NO ADDRESS ON FILE MALIG NEOPLASM SKIN EAR (Primary Dx) Social History Tobacco Use Types Packs/Day Years Used Date Smoking Tobacco: Never Assessed Sex and Gender Information Value Date Recorded Sex Assigned at Not on file 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
--- OUTSIDE RECORDS SUMMARY | 2025-02-18 13:01 | XMS_ITS | Encounter Summary ---
Author Organization [facility] Address [address] [place] [address] Care Team Providers Care Ceo And Co Founder Name Role Phone Srinivasa Anderson MD Primary Care Provider [phone] Encounter Details Date Type Department Care Team (Latest Contact Info) Description 01/17/[address] 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
--- OUTSIDE RECORDS SUMMARY | 2025-02-18 13:01 | XMS_ITS | Encounter Summary ---
Author Organization [facility] Address [address] [place] [address] Care Team Providers Care Card Sorter Name Role Phone Srinivasa Anderson MD Primary Care Provider Encounter Details Date Type Department Care Team (Latest Contact Info) Description 10/03/2004 Outpatient [facility] [place] [place] [address] Srinivasa Anderson MD [address] [place] [address] HYPERTENSION NOS (Primary Dx); Plantar fibromatosis; OTHER MALAISE AND FATIGUE; Toxic effect venom Social History Tobacco Use Types Packs/Day Years Used Date Smoking Tobacco: Never Assessed Sex and Gender Information Value Date Recorded Sex Assigned at Not on file 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
--- OUTSIDE RECORDS SUMMARY | 2025-02-18 13:01 | XMS_ITS | Encounter Summary ---
Author Organization [facility] Address [address] [place] [address] Care Team Providers Care As400 Programmer Name Role Phone Srinivasa Anderson MD Primary Care Provider [phone] Reason for Visit * Reason Comments Clinical Consult Before Scheduling Patient Communication Encounter Details Date Type Department Care Team (Late st Contact Info) Description 02/05/2025 Nurse Triage [facility] [place] [place] [address] Srinivasa Anderson MD [address] [place] [address] Social History Tobacco Use Types Packs/Day Years [...] on file 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 Topic: CPA Information Request >> Feb 05, 2025 11:01 AM Ashwini Keith wrote: Caller is returning phone call from clinic. Caller Name: faraz Weinberg Patient/Caregiver Callback Number: [phone] Patient Has Additional Questions Are the credentials of the caregiver who talked to the patient optical instrument assembly supervisor? No Call Notes: Patient/Caller requires a call back to discuss fax that needs to be received sole! She said they have not gotten it yet and they have been waiting for 2 hours. Then she said bye and hung up.. * Telephone Encounter - Araceli Aldrich - 02/05/2025 10:30 AM CDT Copied from [facility] #[id number]. Topic: CPA Information Request >> Feb 05, 2025 10:29 AM Araceli Barbosa wrote: Caller is returning phone call from clinic. Caller Name: faraz Weinberg, on PHI Patient/Caregiver Callback Number: [phone] Clinic Did Not Leave Note In Chart Call Notes: Patient is at lab and needs lab orders faxed to [phone] * Telephone Encounter - Selena Santos RN - 02/05/2025 8:17 AM CDT [facility] Provider: Dr. Anderson Patient's called in to request the labs be refaxed to [facility], states their fax machine was down yesterday and they did not receive lab orders. She also wanted Fran to know that she is taking Moiz to [facility] to be seen for his rash. States he is in pain and the rash is worsening and he can't take it anymore. She is wanting him to beadmitted to the hospital. * Telephone Encounter - Abbey Paulino - 02/05/2025 8:11 AM CDT Copied from [facility] #[id number]. Topic: Symptomatic Care >> Feb 05, 2025 8:08 AM Abbey Ramos wrote: Has this patient seen any provider (current or former) at the requested clinic in the past? Yes, Select the appropriate age range and symptom Patient has symptoms and is seeking care. Caller Name: Sultana ( on PHI) Callback Number: [phone] Call Notes: Pt's states that the patient can not take anymore and wants to be advised on what to do. The patient has been having painful rashes and it is worsening. She wanted to speak to the nurse on whether the patient needs to be admitted to the Hospital or not. Age Range/Symptom: Adult: 18+ & High Risk Pain, present for less than 3 days AND 8, 9 or 10 severity on a 0-10 scale (10 being worst) Is there an encounter open? No Transferred to [facility] line and answered call. documented in this encounter Plan of Treatment Upcoming Encounters Date Type Department Care Team (Late st Contact Info) Description 02/24/2025 3:00 PM FISHERIES TECHNICAL OFFICER Office Visit [facility] Yesenia Robles [place] [place] [address] Srinivasa Anderson MD [address] [place] [address] 03/26/2025 11:40 AM FISHERIES TECHNICAL OFFICER Office Visit [facility] [address] [facility] [address] [place] [address] Dominic Haskins CRNP [address] [place] [address] 07/08/2025 1:00 PM CDT Office Visit [facility] [address] [place] [address] Kodak Samuel MD [address] [facility] [address] [place] [address] documented as of this encounter Visit Diagnoses Not on filedocumented in this encounter Care Teams As400 Programmer Relationship Specialty Start Date End Date Srinivasa Anderson MD [address] [facility] [address] [place] [address] PCP - General Family Practice 05/18/24 documented as of this encounter
--- OUTSIDE RECORDS SUMMARY | 2025-02-18 13:01 | XMS_ITS | Encounter Summary ---
Author Organization [facility] Address [address] [facility] [place] [address] Care Team Providers Care Queen'S Counsel Name Role Phone Srinivasa Anderson MD Primary Care Provider [phone] Encounter Details Date Type Department Care Team (Latest Contact Info) Description 02/08/2004 Outpatient Historical [facility] Imaging Services-Nilay Robles [place] [address] [place] [address] Mark Lux MD [address] [place] [address] HEMATURIA (Primary Dx) Social History Tobacco Use Types Packs/Day Years Used Date Smoking Tobacco: Never Assessed Sex and Gender Information Value Date Recorded Sex Assigned at Not on file 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
--- OUTSIDE RECORDS SUMMARY | 2025-02-18 13:01 | XMS_ITS | Encounter Summary ---
Author Organization [facility] Address [address] [place] [address] Care Team Providers Care Editing Intern Name Role Phone Srinivasa Anderson MD Primary Care Provider [phone] Encounter Details Date Type Department Care Team (Latest Contact Info) Description 07/18/2004 Outpatient Historical [facility] Endoscopy [place] [address] [facility] [address] [place] [address] Ar Stanton MD NO ADDRESS ON FILE INT HEMORRHOID W/O COMPL (Primary Dx) Social History Tobacco Use Types Packs/Day Years Used Date Smoking Tobacco: Never Assessed Sex and Gender Information Value Date Recorded Sex Assigned at Not on file 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
--- OUTSIDE RECORDS SUMMARY | 2025-02-18 13:01 | XMS_ITS | Encounter Summary ---
Author Organization [facility] Address [address] [facility] [place] [address] Care Team Providers Care Traveling Representative Name Role Phone Srinivasa Anderson MD Primary Care Provider [phone] Encounter Details Date Type Department Care Team (Latest Contact Info) Description 02/08/2004 Outpatient Historical [facility] [place] [address] Mark Lux MD [address] [place] [address] HEMATURIA (Primary Dx); LUMBAGO; Vaccine for influenza Social History Tobacco Use Types Packs/Day Years Used Date Smoking Tobacco: Never Assessed Sex and Gender Information Value Date Recorded Sex Assigned at Not on file 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
--- OUTSIDE RECORDS SUMMARY | 2025-02-18 13:01 | XMS_ITS | Encounter Summary ---
Author Organization [facility] Address [address] [place] [address] Care Team Providers Care Tie Maker Name Role Phone Srinivasa Anderson MD Primary Care Provider [phone] Encounter Details Date Type Department Care Team (Latest Contact Info) Description 10/26/2004 Outpatient Historical [facility] [address] 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
--- OUTSIDE RECORDS SUMMARY | 2025-02-18 13:01 | XMS_ITS | Encounter Summary ---
Author Organization [facility] Address [address] [facility] [place] [address] Care Team Providers Care Straightener And Aligner Name Role Phone Srinivasa Anderson MD Primary Care Provider [phone] Encounter Details Date Type Department Care Team (Latest Contact Info) Description 02/08/2004 Outpatient Historical [facility] Imaging Services-Nilay Robles [place] [address] [place] [address] Mark Lux MD [address] [place] [address] HEMATURIA (Primary Dx) Social History Tobacco Use Types Packs/Day Years Used Date Smoking Tobacco: Never Assessed Sex and Gender Information Value Date Recorded Sex Assigned at Not on file 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
--- OUTSIDE RECORDS SUMMARY | 2025-02-18 13:01 | XMS_ITS | Encounter Summary ---
Author Organization [facility] Address [address] [place] [address] Care Team Providers Care It Support Technician Name Role Phone Srinivasa Anderson MD Primary Care Provider Encounter Details Date Type Department Care Team (Late st Contact Info) Description 03/30/2004 Outpatient Historical [facility]rology- [place] [address] [facility] [address] 3rd [place] [address] Erasmo Rosas MD NO ADDRESS ON FILE OTHER SPEC DISORDER URINARY TRACT (Primary Dx) Social History Tobacco Use Types Packs/Day Years Used Date Smoking Tobacco: Never Assessed Sex and Gender Information Value Date Recorded Sex Assigned at Not on file 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
--- OUTSIDE RECORDS SUMMARY | 2025-02-18 13:01 | XMS_ITS | Encounter Summary ---
Author Organization [facility] Address [address] [facility] [place] [address] Care Team Providers Care Party Plan Sales Unit Sales Leader Name Role Phone Srinivasa Anderson MD Primary Care Provider [phone] Encounter Details Date Type Department Care Team (Latest Contact Info) Description 10/26/2004 Outpatient Historical [facility] [place] [place] [address] Srinivasa Anderson MD [address] [place] [address] TESTICULAR HYPOFUNC NEC (Primary Dx) Social History Tobacco Use Types Packs/Day Years Used Date Smoking Tobacco: Never Assessed Sex and Gender Information Value Date Recorded Sex Assigned at Not on file 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
--- OUTSIDE RECORDS SUMMARY | 2025-02-18 13:01 | XMS_ITS | Encounter Summary ---
Author Organization [facility] Address [address] [place] [address] Care Team Providers Care Wheel Tuner Name Role Phone Srinivasa Anderson MD Primary Care Provider [phone] Encounter Details Date Type Department Care Team (Latest Contact Info) Description 07/18/2004 Outpatient 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 Gender Identity Not on file Sexual Orientation Not on file documented as of this encounter Plan of Treatment Not on file documented as of this encounter Visit Diagnoses Diagnosis Unspecified follow-up examination- Primary Personal history of colonic polyps Diverticulosis of colon Diverticulosis of colon (without mention of hemorrhage) Internal hemorrhoids without mention of complication documented in this encounter Care Teams Wheel Tuner Relationship Specialty Start Date End Date Srinivasa Anderson MD [address] [place] [phone] PCP - General 07/18/04 documented as of this encounter
--- OUTSIDE RECORDS SUMMARY | 2025-02-18 13:01 | XMS_ITS ---
Author Organization [facility] Address [address] [address] Care Team Providers Care Trainman Name Role Phone Srinivasa Anderson MD Primary Care Provider [phone] Active Problems Problem Noted Date Diagnosed Date [...]
--- OUTSIDE RECORDS SUMMARY | 2025-02-18 13:01 | XMS_ITS | Encounter Summary ---
Author Organization [facility] Address [address] [facility] [place] [address] Care Team Providers Care Ceramic Tile Installer Name Role Phone Srinivasa Anderson MD Primary Care Provider [phone] Encounter Details Date Type Department Care Team (Latest Contact Info) Description 01/26/2005 Outpatient Historical [facility] [place] [place] [address] Srinivasa Anderson MD [address] [place] [address] ANXIETY STATE NOS (Primary Dx); IMPOTENCE, ORGANIC ORIGN; MALAISE AND FATIGUE NEC; TESTICULAR HYPOFUNC NEC Social History Tobacco Use Types Packs/Day Years Used Date Smoking Tobacco: Never Assessed Sex and Gender Information Value Date Recorded Sex Assigned at Not on file 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
--- OUTSIDE RECORDS SUMMARY | 2025-02-18 13:01 | XMS_ITS | Encounter Summary ---
Author Organization [facility] Address [address] [place] [address] Care Team Providers Care Water Use Inspector Name Role Phone Srinivasa Anderson MD Primary Care Provider [phone] Reason for Visit * Reason Comments Patient Communication Encounter Details Date Type Department Care Team (Late st Contact Info) Description 02/04/2025 Telephone [facility] [place] [address] [place] [address] Srinivasa Anderson MD [address] [place] [address] Patient Communication Social History Tobacco Use Types Packs/Day Years [...] on file Legal Sex Male 6:28 AM CLIENT EXPERIENCE CONSULTANT Gender Identity Not on file Sexual Orientation Not on file documented as of this encounter Miscellaneous Notes * Telephone Encounter - Ladan Evans CMA - 02/04/2025 9:50 AM CDT Lab orders were faxed. * Telephone Encounter - Fran Mancilla NP - 02/04/2025 9:38 AM CDT Please fax the orders. * Telephone Encounter - Selena Santos RN - 02/04/2025 8:51 AM CDT Person calling: Sultana([facility]) Provider: Dr. Anderson Patient's called and she would [facility] were [facility] to go get them done * Telephone Encounter - Viviane Coello - 02/04/2025 8:44 AM CDT Copied from [facility] #[id number]. Topic: CPA Information Request >> Feb 04, 2025 8:40 AM Viviane Suero wrote: Caller is returning phone call from clinic. Caller Name: Moiz Hernandez Patient/Caregiver Callback Number: Telephone Information: Pt has questions about possibly getting his labs done at [facility] please call to advise documented in this encounter Plan of Treatment Upcoming Encounters Date Type Department Care Team (Late st Contact Info) Description 02/24/2025 3:00 PM CLIENT EXPERIENCE CONSULTANT Office [facility] [place] [address] [place] [address] Srinivasa Anderson MD [address] [place] [address] 03/26/2025 11:40 AM CLIENT EXPERIENCE CONSULTANT Office Visit [facility] [address] [place] [address] Dominic Haskins CRNP [address] [place] [address] 07/08/2025 1:00 PM CDT Office Visit [facility] [address] [place] [address] Kodak Samuel MD [address] [place] [address] documented as of this encounter Visit Diagnoses Not on filedocumented in this encounter Care Teams Water Use Inspector Relationship Specialty Start Date End Date Srinivasa Anderson MD [address] [facility] [address] [place] [address] PCP - General Family Practice 05/18/24 documented as of this encounter
--- OUTSIDE RECORDS SUMMARY | 2025-02-18 13:01 | XMS_ITS | Encounter Summary ---
Author Organization [facility] Address [address] [place] [address] Care Team Providers Care Senior Shipping Clerk Name Role Phone Srinivasa Anderson MD Primary Care Provider [phone] Encounter Details Date Type Department Care Team (Latest Contact Info) Description 02/17/2004 Outpatient Historical [facility] Imaging Services-[place] [address] [place] [address] Mark Lux MD [address] [place] [address] ABNORMAL FINDINGS- ORGANS (Primary Dx) Social History Tobacco Use Types Packs/Day Years Used Date Smoking Tobacco: Never Assessed Sex and Gender Information Value Date Recorded Sex Assigned at Not on file 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
--- OUTSIDE RECORDS SUMMARY | 2025-02-18 13:01 | XMS_ITS ---
Author Organization [facility] Address [address] [place] [address] Phone Care Team Providers Care Fish Checker Name Role Phone Srinivasa Anderson MD Primary Care Provider [phone] Active Problems Problem Noted Date Diagnosed Date [...] Min 55.66 mGy 27.86 mGy 27.8 mGy Fluoro 76 Minutes 0 Minutes 76 Minutes Air Kerma 1,300 mGy 0 mGy 1,300 [...]
--- OUTSIDE RECORDS SUMMARY | 2025-02-18 13:02 | XMS_ITS | Encounter Summary ---
Author Organization [facility] Address [address] [place] [address] Care Team Providers Care Concrete Products Dispatcher Name Role Phone Srinivasa Anderson MD Primary Care Provider [phone] Encounter Details Date Type Department Care Team (Latest Contact Info) Description 09/08/2002 Outpatient Historical [facility] Robbi Post MD [address] [facility] [place] [id number] Spondylolisthesis (Primary Dx); JOINT PAIN-PELVIS; LUMBAGO Social History Tobacco Use Types Packs/Day Years Used Date Smoking Tobacco: Never Assessed Sex and Gender Information Value Date Recorded Sex Assigned at Not on file 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
--- OUTSIDE RECORDS SUMMARY | 2025-02-18 13:02 | XMS_ITS | Encounter Summary ---
Author Organization [facility] Address [address] [place] [facility] [place] [address] Care Team Providers Care Bessemer Regulator Name Role Phone Srinivasa Anderson MD Primary Care Provider [phone] Encounter Details Date Type Department Care Team (Late st Contact Info) Description 10/21/2000 Outpatient Historical [facility] Yfn Hahn MD [address] [place], [place] [id number] Unspecified essential hypertension (Primary Dx); Other vitamin B12 deficiency anemia; Routine medical exam; Special screening for malignant neoplasm of prostate; Femoral vein phlebitis Social History Tobacco Use Types Packs/Day Years Used Date Smoking Tobacco: Never Assessed Sex and Gender Information Value Date Recorded Sex Assigned at Not on file 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
--- OUTSIDE RECORDS SUMMARY | 2025-02-18 13:02 | XMS_ITS | Encounter Summary ---
Author Organization [facility] Address [address] [place] [address] Care Team Providers Care Carpenter Bridge Name Role Phone Srinivasa Anderson MD Primary Care Provider [phone] Encounter Details Date Type Department Care Team (Latest Contact Info) Description 02/18/2001 Outpatient Historical [facility] [place] [address] [place] [address] Zoltan Mahoney MD NO ADDRESS ON FILE PERS HX SKIN MALIGNANCY NEC (Primary Dx); SEBORRHEIC KERATOSIS NOS; ACTINIC KERATOSIS Social History Tobacco Use Types Packs/Day Years Used Date Smoking Tobacco: Never Assessed Sex and Gender Information Value Date Recorded Sex Assigned at Not on file 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
--- OUTSIDE RECORDS SUMMARY | 2025-02-18 13:02 | XMS_ITS | Encounter Summary ---
Author Organization [facility] Address [address] [facility] [place] [address] Care Team Providers Care Dryerman/Woman Name Role Phone Srinivasa Anderson MD Primary Care Provider [phone] Encounter Details Date Type Department Care Team (Latest Contact Info) Description 04/05/2003 Outpatient Historical [facility] Imaging Services-[place] [address] [place] [address] Mark Lux MD [address] [place] [address] ABDOMINAL PAIN EPIGASTRIC (Primary Dx) Social History Tobacco Use Types Packs/Day Years Used Date Smoking Tobacco: Never Assessed Sex and Gender Information Value Date Recorded Sex Assigned at Not on file 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
--- OUTSIDE RECORDS SUMMARY | 2025-02-18 13:02 | XMS_ITS | Encounter Summary ---
Author Organization [facility] Address [address] [place] [address] Care Team Providers Care Rock Duster Name Role Phone Srinivasa Anderson MD Primary Care Provider [phone] Encounter Details Date Type Department Care Team (Latest Contact Info) Description 11/06/2002 Outpatient [facility] Int [facility] [place] [place] [address] Mark Lux MD [address] [place] [address] HYPERTENSION NOS (Primary Dx); Pure hypercholesterolem; OTHER MALAISE AND FATIGUE; VACCINE FOR STREP PNEUMONIAE Social History Tobacco Use Types Packs/Day Years Used Date Smoking Tobacco: Never Assessed Sex and Gender Information Value Date Recorded Sex Assigned at Not on file 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
--- OUTSIDE RECORDS SUMMARY | 2025-02-18 13:02 | XMS_ITS | Encounter Summary ---
Author Organization [facility] Address [address] [place] [address] Care Team Providers Care Campus Wellness Coordinator Name Role Phone Srinivasa Anderson MD Primary Care Provider [phone] Encounter Details Date Type Department Care Team (Latest Contact Info) Description 08/30/2003 Outpatient Historical [facility] Int [facility] [place] [place] [address] Mark Lux MD [address] [place] [address] ABDOMINAL PAIN UNSPEC SITE (Primary Dx) Social History Tobacco Use Types Packs/Day Years Used Date Smoking Tobacco: Never Assessed Sex and Gender Information Value Date Recorded Sex Assigned at Not on file 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
--- OUTSIDE RECORDS SUMMARY | 2025-02-18 13:02 | XMS_ITS | Encounter Summary ---
Author Organization [facility] Address [address] [facility] [place] [address] Care Team Providers Care Office Machines Teacher Name Role Phone Srinivasa Anderson MD Primary Care Provider [phone] Encounter Details Date Type Department Care Team (Latest Contact Info) Description 05/30/1998 Outpatient Historical [facility] Dermatology- [facility] [place] [address] [place] [address] Zoltan Mahoney MD NO ADDRESS ON FILE Other seborrheic keratosis (Primary Dx) Social History Tobacco Use Types Packs/Day Years Used Date Smoking Tobacco: Never Assessed Sex and Gender Information Value Date Recorded Sex Assigned at Not on file 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
--- OUTSIDE RECORDS SUMMARY | 2025-02-18 13:02 | XMS_ITS | Encounter Summary ---
Author Organization [facility] Address [address] [place] [address] Care Team Providers Care Manager Hiv Name Role Phone Srinivasa Anderson MD Primary Care Provider [phone] Encounter Details Date Type Department Care Team (Latest Contact Info) Description 03/04/[address] 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
--- OUTSIDE RECORDS SUMMARY | 2025-02-18 13:02 | XMS_ITS | Encounter Summary ---
Author Organization [facility] Address [address] [facility] [place] [address] Care Team Providers Care Library Acquisitions Technician Name Role Phone Srinivasa Anderson MD Primary Care Provider [phone] Encounter Details Date Type Department Care Team (Latest Contact Info) Description 04/18/2005 Outpatient Historical [facility] [place] [place] [address] Srinivasa Anderson MD [address] [place] [address] TESTICULAR HYPOFUNC NEC (Primary Dx) Social History Tobacco Use Types Packs/Day Years Used Date Smoking Tobacco: Never Assessed Sex and Gender Information Value Date Recorded Sex Assigned at Not on file 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
--- OUTSIDE RECORDS SUMMARY | 2025-02-18 13:02 | XMS_ITS | Encounter Summary ---
Author Organization [facility] Address [address] [place] [address] Care Team Providers Care Program Director Name Role Phone Srinivasa Anderson MD Primary Care Provider Encounter Details Date Type Department Care Team (Latest Contact Info) Description 05/08/[address] 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 Gender Identity Not on file Sexual Orientation Not on file documented as of this encounter Plan of Treatment Not on file documented as of this encounter Visit Diagnoses Diagnosis Unspecified essential hypertension- Primary 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
--- OUTSIDE RECORDS SUMMARY | 2025-02-18 13:02 | XMS_ITS | Encounter Summary ---
Author Organization [facility] Address [address] [place] [address] Care Team Providers Care Gift Manager Name Role Phone Srinivasa Anderson MD Primary Care Provider [phone] Encounter Details Date Type Department Care Team (Latest Contact Info) Description 09/01/2002 Outpatient Historical [facility] Imaging Services [address] 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
--- OUTSIDE RECORDS SUMMARY | 2025-02-18 13:02 | XMS_ITS | Encounter Summary ---
Author Organization [facility] Address [address] [facility] [place] [address] Care Team Providers Care [facility] Name Role Phone Srinivasa Anderson MD Primary Care Provider [phone] Encounter Details Date Type Department Care Team (Latest Contact Info) Description 10/01/1997 Outpatient Historical [facility]erm[facility]- [facility] [place] [address] [place] [phone] Zoltan Mahoney MD NO ADDRESS ON FILE Actinic keratosis (Primary Dx); 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 Social History Tobacco Use Types Packs/Day Years Used Date Smoking Tobacco: Never Assessed Sex and Gender Information Value Date Recorded Sex Assigned at Not on file 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
--- OUTSIDE RECORDS SUMMARY | 2025-02-18 13:02 | XMS_ITS | Encounter Summary ---
Author Organization [facility] Address [address] [facility] [address] Care Team Providers Care Planning Rn Name Role Phone Srinivasa Anderson MD Primary Care Provider [phone] Encounter Details Date Type Department Care Team (Latest Contact Info) Description 10/14/2001 Outpatient Historical [facility] [place] [address] [place] [address] Mark Lux MD [address] [place] [address] HYPERTENSION NOS (Primary Dx) Social History Tobacco Use Types Packs/Day Years Used Date Smoking Tobacco: Never Assessed Sex and Gender Information Value Date Recorded Sex Assigned at Not on file 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
--- OUTSIDE RECORDS SUMMARY | 2025-02-18 13:02 | XMS_ITS | Encounter Summary ---
Author Organization [facility] Address [address] [facility] [place] [address] Care Team Providers Care Managing Cognitive Engineer Name Role Phone Srinivasa Anderson MD Primary Care Provider Encounter Details Date Type Department Care Team (Latest Contact Info) Description 09/23/2002 Outpatient Historical [facility] Dermatology- [facility] [place] [address] [place] [phone] Zoltan Mahoney MD NO ADDRESS ON FILE ACTINIC KERATOSIS (Primary Dx); MALIG NEOPLASM SKIN FACE NEC; Inflamed seborr keratos Social History Tobacco Use Types Packs/Day Years Used Date Smoking Tobacco: Never Assessed Sex and Gender Information Value Date Recorded Sex Assigned at Not on file 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
--- OUTSIDE RECORDS SUMMARY | 2025-02-18 13:02 | XMS_ITS | Encounter Summary ---
Author Organization [facility] Address [address] [facility] [address] Care Team Providers Care Noodle Maker Name Role Phone Srinivasa Anderson MD Primary Care Provider [phone] Encounter Details Date Type Department Care Team (Late st Contact Info) Description 11/05/2000 Outpatient Historical 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
--- OUTSIDE RECORDS SUMMARY | 2025-02-18 13:02 | XMS_ITS | Encounter Summary ---
Author Organization [facility] Address [address] [facility] [place] [address] Care Team Providers Care Electrical Manufacturing Engineer Name Role Phone Srinivasa Anderson MD Primary Care Provider [phone] Encounter Details Date Type Department Care Team (Latest Contact Info) Description 09/11/2002 Outpatient Historical [facility] Dermatology- [facility] [place] [address] [place] [phone] Zoltan Mahoney MD NO ADDRESS ON FILE ACTINIC KERATOSIS (Primary Dx); Malig amado scalp/skin neck; SEBORRHEIC KERATOSIS NOS Social History Tobacco Use Types Packs/Day Years Used Date Smoking Tobacco: Never Assessed Sex and Gender Information Value Date Recorded Sex Assigned at Not on file 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
--- OUTSIDE RECORDS SUMMARY | 2025-02-18 13:02 | XMS_ITS | Encounter Summary ---
Author Organization [facility] Address [address] [facility] [place] [address] Care Team Providers Care Day Camp Unit Leader Name Role Phone Srinivasa Anderson MD Primary Care Provider [phone] Encounter Details Date Type Department Care Team (Latest Contact Info) Description 03/27/2005 Outpatient Historical [facility] Dermatology- [facility] [place] [address] [place] [address] Zoltan Mahoney MD NO ADDRESS ON FILE ACTINIC KERATOSIS (Primary Dx); Inflamed seborr keratos; SEBORRHEIC KERATOSIS NOS; Malig amado skin arm Social History Tobacco Use Types Packs/Day Years Used Date Smoking Tobacco: Never Assessed Sex and Gender Information Value Date Recorded Sex Assigned at Not on file 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 Gender Identity Not on file Sexual Orientation Not on file documented as of this encounter Plan of Treatment Not on file documented as of this encounter Visit Diagnoses Diagnosis Actinic keratosis- Primary Inflamed seborr keratos Inflamed seborrheic keratosis Other seborrheic keratosis Malig amado skin arm 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
--- OUTSIDE RECORDS SUMMARY | 2025-02-18 13:02 | XMS_ITS | Encounter Summary ---
Author Organization [facility] Address [address] [place] [facility] [place] [address] Care Team Providers Care Lap Winder Name Role Phone Srinivasa Anderson MD Primary Care Provider [phone] Encounter Details Date Type Department Care Team (Late st Contact Info) Description 02/17/[address] 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
--- OUTSIDE RECORDS SUMMARY | 2025-02-18 13:02 | XMS_ITS | Encounter Summary ---
Author Organization [facility] Address [address] [facility] [place] [address] Care Team Providers Care Spanisher Name Role Phone Srinivasa Anderson MD Primary Care Provider [phone] Encounter Details Date Type Department Care Team (Latest Contact Info) Description 06/03/1997 Outpatient Historical [facility] [place] [address] [place] [phone] Zoltan Mahoney MD NO ADDRESS ON FILE 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 (Primary Dx); Inflamed seborr keratos; Other seborrheic keratosis Social History Tobacco Use Types Packs/Day Years Used Date Smoking Tobacco: Never Assessed Sex and Gender Information Value Date Recorded Sex Assigned at Not on file 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
--- OUTSIDE RECORDS SUMMARY | 2025-02-18 13:02 | XMS_ITS | Encounter Summary ---
Author Organization [facility] Address [address] [facility] [place] [address] Care Team Providers Care Front End Mechanic Name Role Phone Srinivasa Anderson MD Primary Care Provider [phone] Encounter Details Date Type Department Care Team (Latest Contact Info) Description 06/29/1999 Outpatient Historical [facility] Dermatology- [facility] [place] [address] [place] [address] Zoltan Mahoney MD NO ADDRESS ON FILE Actinic keratosis (Primary Dx); Malig amado skin arm; Inflamed seborr keratos Social History Tobacco Use Types Packs/Day Years Used Date Smoking Tobacco: Never Assessed Sex and Gender Information Value Date Recorded Sex Assigned at Not on file 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
--- OUTSIDE RECORDS SUMMARY | 2025-02-18 13:02 | XMS_ITS | Encounter Summary ---
Author Organization [facility] Address [address] [place] [address] Care Team Providers Care Filler Shredder Name Role Phone Srinivasa Anderson MD Primary Care Provider [phone] Encounter Details Date Type Department Care Team (Latest Contact Info) Description 08/19/2001 Outpatient Historical [facility] Dermatology- [facility] [place] [address] [place] [phone] Zoltan Mahoney MD NO ADDRESS ON FILE Malig amado scalp/skin neck (Primary Dx); SEBORRHEIC KERATOSIS NOS Social History Tobacco Use Types Packs/Day Years Used Date Smoking Tobacco: Never Assessed Sex and Gender Information Value Date Recorded Sex Assigned at Not on file 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
--- OUTSIDE RECORDS SUMMARY | 2025-02-18 13:02 | XMS_ITS | Encounter Summary ---
Author Organization [facility] Address [address] [place] [address] Care Team Providers Care Bander And Cellophaner Machine Helper Name Role Phone Srinivasa Anderson MD Primary Care Provider [phone] Encounter Details Date Type Department Care Team (Latest Contact Info) Description 10/24/2001 Outpatient Historical [facility] Int [facility] [place] [place] [address] Mark Lux MD [address] [place] [address] HYPERTENSION NOS (Primary Dx); Pure hypercholesterolem; OSTEOARTHROS NOS-UNSPEC Social History Tobacco Use Types Packs/Day Years Used Date Smoking Tobacco: Never Assessed Sex and Gender Information Value Date Recorded Sex Assigned at Not on file 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 Gender Identity Not on file Sexual Orientation Not on file documented as of this encounter Plan of Treatment Not on file documented as of this encounter Visit Diagnoses Diagnosis Unspecified essential hypertension- Primary Pure hypercholesterolem Pure hypercholesterolemia Osteoarthrosis, unspecified whether generalized or localized, unspecified site documented in this encounter Care Teams Bander And Cellophaner Machine Helper Relationship Specialty Start Date End Date Srinivasa Anderson MD [address] [place] [address] PCP - General 07/18/04 documented as of this encounter
--- OUTSIDE RECORDS SUMMARY | 2025-02-18 13:02 | XMS_ITS | Encounter Summary ---
Author Organization [facility] Address [address] [place] [address] Care Team Providers Care Elevator Mechanic Name Role Phone Srinivasa Anderson MD Primary Care Provider [phone] Encounter Details Date Type Department Care Team (Latest Contact Info) Description 03/25/2003 Outpatient Historical [facility] Dermatology- [facility] [place] [address] [place] [address] Zoltan Mahoney MD NO ADDRESS ON FILE ACTINIC KERATOSIS (Primary Dx); Inflamed seborr keratos; SEBORRHEIC KERATOSIS NOS Social History Tobacco Use Types Packs/Day Years Used Date Smoking Tobacco: Never Assessed Sex and Gender Information Value Date Recorded Sex Assigned at Not on file 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
--- OUTSIDE RECORDS SUMMARY | 2025-02-18 13:02 | XMS_ITS | Encounter Summary ---
Author Organization [facility] Address [address] [place] [address] Care Team Providers Care Organ Installer Name Role Phone Srinivasa Anderson MD Primary Care Provider [phone] Encounter Details Date Type Department Care Team (Late st Contact Info) Description 10/21/2000 Outpatient Historical [facility] Int 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
--- OUTSIDE RECORDS SUMMARY | 2025-02-18 13:02 | XMS_ITS | Encounter Summary ---
Author Organization [facility] Address [address] [facility] [place] [address] Care Team Providers Care Supervisor Maintenance Name Role Phone Srinivasa Anderson MD Primary Care Provider [phone] Encounter Details Date Type Department Care Team (Latest Contact Info) Description 05/07/2003 Outpatient Historical [facility] Int [facility] [place] [place] [address] Mark Lux MD [address] [place] [address] HYPERTENSION NOS (Primary Dx); Pure hypercholesterolem Social History Tobacco Use Types Packs/Day Years Used Date Smoking Tobacco: Never Assessed Sex and Gender Information Value Date Recorded Sex Assigned at Not on file 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
--- OUTSIDE RECORDS SUMMARY | 2025-02-18 13:02 | XMS_ITS | Encounter Summary ---
Author Organization [facility] Address [address] [place] [address] Care Team Providers Care Network Diagnostic Support Specialist Name Role Phone Srinivasa Anderson MD Primary Care Provider [phone] Encounter Details Date Type Department Care Team (Latest Contact Info) Description 12/02/[address] 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
--- OUTSIDE RECORDS SUMMARY | 2025-02-18 13:02 | XMS_ITS | Encounter Summary ---
Author Organization [facility] Address [address] [facility] [place] [address] Care Team Providers Care Chief Development Officer Name Role Phone Srinivasa Anderson MD Primary Care Provider [phone] Encounter Details Date Type Department Care Team (Latest Contact Info) Description 11/10/2003 Outpatient Historical [facility] Int [facility] [place] [place] [address] Mark Lux MD [address] [place] [address] HYPERTENSION NOS (Primary Dx); Pure hypercholesterolem; B12 DEFIC ANEMIA NEC Social History Tobacco Use Types Packs/Day Years Used Date Smoking Tobacco: Never Assessed Sex and Gender Information Value Date Recorded Sex Assigned at Not on file 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
--- OUTSIDE RECORDS SUMMARY | 2025-02-18 13:02 | XMS_ITS | Encounter Summary ---
Author Organization [facility] Address [address] [place] [address] Care Team Providers Care Oil Lease Operator Name Role Phone Srinivasa Anderson MD Primary Care Provider [phone] Encounter Details Date Type Department Care Team (Latest Contact Info) Description 08/04/2002 Outpatient Historical [facility] Imaging Services-[place] Robles [place] [address] [place] [address] Mark Lux MD [address] [place] [address] JOINT PAIN-PELVIS (Primary Dx) Social History Tobacco Use Types Packs/Day Years Used Date Smoking Tobacco: Never Assessed Sex and Gender Information Value Date Recorded Sex Assigned at Not on file 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
--- OUTSIDE RECORDS SUMMARY | 2025-02-18 13:02 | XMS_ITS | Encounter Summary ---
Author Organization [facility] Address [address] [place] [address] Care Team Providers Care Field Nurse Name Role Phone Srinivasa Anderson MD Primary Care Provider [phone] Encounter Details Date Type Department Care Team (Late st Contact Info) Description 12/30/2000 Outpatient Historical [facility] Yfn Hahn MD [address] [place], [place] [id number] Other pulmonary embolism and infarction (CMS/HCC) (Primary Dx) Social History Tobacco Use Types Packs/Day Years Used Date Smoking Tobacco: Never Assessed Sex and Gender Information Value Date Recorded Sex Assigned at Not on file 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
--- OUTSIDE RECORDS SUMMARY | 2025-02-18 13:02 | XMS_ITS | Encounter Summary ---
Author Organization [facility] Address [address] [facility] [facility] [place] [address] Care Team Providers Care Master Welder Name Role Phone Srinivasa Anderson MD Primary Care Provider [phone] Encounter Details Date Type Department Care Team (Latest Contact Info) Description 08/04/2002 Outpatient Historical [facility] [place] [place] [address] Mark Lux MD [address] [place] [address] JOINT PAIN-PELVIS (Primary Dx) Social History Tobacco Use Types Packs/Day Years Used Date Smoking Tobacco: Never Assessed Sex and Gender Information Value Date Recorded Sex Assigned at Not on file 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
--- OUTSIDE RECORDS SUMMARY | 2025-02-18 13:02 | XMS_ITS | Encounter Summary ---
Author Organization [facility] Address [address] 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
--- OUTSIDE RECORDS SUMMARY | 2025-02-18 13:02 | XMS_ITS | Encounter Summary ---
Author Organization [facility] Address [address] [facility] [place] [address] Care Team Providers Care Dish Cloth Inspector Name Role Phone Srinivasa Anderson MD Primary Care Provider Encounter Details Date Type Department Care Team (Late st Contact Info) Description 02/17/2001 Outpatient Historical [facility] Imaging Services-[place] Tarrant [address] [place] [address] Yfn Hahn MD [address] [place] [address] COUGH (Primary Dx); RESPIRATORY ABNORM NEC Social History Tobacco Use Types Packs/Day Years Used Date Smoking Tobacco: Never Assessed Sex and Gender Information Value Date Recorded Sex Assigned at Not on file 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
--- OUTSIDE RECORDS SUMMARY | 2025-02-18 13:02 | XMS_ITS | Encounter Summary ---
Author Organization [facility] Address [address] [facility] 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
--- OUTSIDE RECORDS SUMMARY | 2025-02-18 13:02 | XMS_ITS | Encounter Summary ---
Author Organization [facility] Address [address] [place] [address] Care Team Providers Care Forming Machine Adjuster Name Role Phone Srinivasa Anderson MD Primary Care Provider [phone] Encounter Details Date Type Department Care Team (Latest Contact Info) Description 11/06/[address] 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
--- OUTSIDE RECORDS SUMMARY | 2025-02-18 13:02 | XMS_ITS | Encounter Summary ---
Author Organization [facility] Address 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 Social History Tobacco Use Types Packs/Day Years Used Date Smoking Tobacco: Never Assessed Sex and Gender Information Value Date Recorded Sex Assigned at Not on file 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
--- OUTSIDE RECORDS SUMMARY | 2025-02-18 13:02 | XMS_ITS | Encounter Summary ---
Author Organization [facility] Address [address] [place] [address] Care Team Providers Care Aquatic Director Name Role Phone Srinivasa Anderson MD Primary Care Provider [phone] Encounter Details Date Type Department Care Team (Latest Contact Info) Description 01/23/1999 Outpatient Historical [facility] [address] [place] [address] Zoltan Mahoney MD NO ADDRESS ON FILE 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 (Primary Dx); Other seborrheic keratosis Social History Tobacco Use Types Packs/Day Years Used Date Smoking Tobacco: Never Assessed Sex and Gender Information Value Date Recorded Sex Assigned at Not on file 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
--- OUTSIDE RECORDS SUMMARY | 2025-02-18 13:02 | XMS_ITS | Encounter Summary ---
Author Organization [facility] Address [address] 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
--- OUTSIDE RECORDS SUMMARY | 2025-02-18 13:03 | XMS_ITS | Encounter Summary ---
Author Organization [facility] Address [address] [place] [address] Care Team Providers Care Crystal Syrup Maker Name Role Phone Srinivasa Anderson MD Primary Care Provider [phone] Encounter Details Date Type Department Care Team (Latest Contact Info) Description 2005 Outpatient Historical [facility] [place] [place] [address] Srinivasa Anderson MD [address] [place] [address] Other Testicular Hypofunction (Primary Dx) Social History Tobacco Use Types Packs/Day Years Used Date Smoking Tobacco: Never Assessed Sex and Gender Information Value Date Recorded Sex Assigned at Not on file 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
--- OUTSIDE RECORDS SUMMARY | 2025-02-18 13:03 | XMS_ITS | Encounter Summary ---
Author Organization [facility] Address [address] [facility] [place] [address] Care Team Providers Care Yard Laborer Name Role Phone Srinivasa Anderson MD Primary Care Provider [phone] Encounter Details Date Type Department Care Team (Latest Contact Info) Description 02/14/2005 Outpatient Historical [facility] [place] [place] [address] Srinivasa Anderson MD [address] [place] [address] TESTICULAR HYPOFUNC NEC (Primary Dx); Vaccine for influenza Social History Tobacco Use Types Packs/Day Years Used Date Smoking Tobacco: Never Assessed Sex and Gender Information Value Date Recorded Sex Assigned at Not on file 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
--- OUTSIDE RECORDS SUMMARY | 2025-02-18 13:03 | XMS_ITS | Encounter Summary ---
Author Organization [facility] Address [address] [place] [address] Care Team Providers Care Gas Cutter Name Role Phone Srinivasa Anderson MD Primary Care Provider [phone] Reason for Visit * Reason Onset Date Comments Question 09/13/2022 Encounter Details Date Type Department Care Team (Late st Contact Info) Description 09/13/2022 Telephone [facility] [address] [place] [address] Jaden Vital MD NO ADDRESS ON FILE Question Social History Tobacco Use Types Packs/Day Years Used Date Smoking Tobacco: Never Smokeless Tobacco: Former Alcohol Use Standard Drinks/Week Comments Yes 1 (1 standard drink = 0.6 oz pur e alcohol) Sex and Gender Information Value Date Recorded Sex Assigned at Not on file Legal Sex Male 6:28 AM ROD PULLER AND COILER Gender Identity Not on file Sexual Orientation [...] Provider: Zahraa Person calling: Sultana Phone #: [phone] Relationship to patient: , PHI not signed [...] st Contact Info) Description 02/24/2025 3:00 PM ROD PULLER AND COILER Office Visit [facility] [place] Robles [place] [place] [address] Srinivasa Anderson MD [address] [place] [address] 03/26/2025 11:40 AM ROD PULLER AND COILER Office Visit [facility] [address] [place] [address] Dominic Haskins CRNP [address] [place] [address] 07/08/2025 1:00 PM CDT Office Visit [facility] [address] [place] [phone] Kodak Samuel MD [address] [place] [phone] documented as of this encounter Visit Diagnoses Not on filedocumented in this encounter Care Teams Gas Cutter Relationship Specialty Start Date End Date Srinivasa Anderson MD [address] [place] [address] PCP - General Family Practice 05/18/24 documented as of this encounter
--- OUTSIDE RECORDS SUMMARY | 2025-02-18 13:03 | XMS_ITS | Encounter Summary ---
Author Organization [facility] Address [address] [place] [address] Care Team Providers Care Outside Machinist Helper Name Role Phone Srinivasa Anderson MD Primary Care Provider [phone] Encounter Details Date Type Department Care Team (Latest Contact Info) Description 03/09/2005 Outpatient Historical [facility] [place] [place] [address] Srinivasa Anderson MD [address] [place] [address] TESTICULAR HYPOFUNC NEC (Primary Dx) Social History Tobacco Use Types Packs/Day Years Used Date Smoking Tobacco: Never Assessed Sex and Gender Information Value Date Recorded Sex Assigned at Not on file 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
--- OUTSIDE RECORDS SUMMARY | 2025-02-18 13:03 | XMS_ITS | Encounter Summary ---
Author Organization [facility] Address [address] [facility] [place] [address] Care Team Providers Care Lumite Injector Name Role Phone Srinivasa Anderson MD Primary Care Provider [phone] Encounter Details Date Type Department Care Team (Latest Contact Info) Description 06/13/2005 Outpatient Historical [facility] [place] [place] [address] Srinivasa Anderson MD [address] [place] [address] TESTICULAR HYPOFUNC NEC (Primary Dx) Social History Tobacco Use Types Packs/Day Years Used Date Smoking Tobacco: Never Assessed Sex and Gender Information Value Date Recorded Sex Assigned at Not on file 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
--- OUTSIDE RECORDS SUMMARY | 2025-02-18 13:03 | XMS_ITS | Encounter Summary ---
Author Organization [facility] Address [address] [place] [address] Care Team Providers Care Gun Barrel Finisher Name Role Phone Srinivasa Anderson MD Primary Care Provider [phone] Encounter Details Date Type Department Care Team (Latest Contact Info) Description 05/22/2005 Outpatient Historical [facility] [place] [place] [address] Srinivasa Anderson MD [address] [place] [address] TESTICULAR HYPOFUNC NEC (Primary Dx); FOLLOW-UP EXAM NOS Social History Tobacco Use Types Packs/Day Years Used Date Smoking Tobacco: Never Assessed Sex and Gender Information Value Date Recorded Sex Assigned at Not on file Legal Sex Male 3: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
--- OUTSIDE RECORDS SUMMARY | 2025-02-18 13:03 | XMS_ITS | Encounter Summary ---
Author Organization [facility] Address [address] [place] [address] Care Team Providers Care Local Delivery Driver Name Role Phone Srinivasa Anderson MD Primary Care Provider [phone] Encounter Details Date Type Department Care Team (Latest Contact Info) Description 03/27/2005 Outpatient Historical [facility] [address] 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
--- OUTSIDE RECORDS SUMMARY | 2025-02-18 13:03 | XMS_ITS | Encounter Summary ---
Author Organization [facility] Address [address] [place] [address] Care Team Providers Care Tube Operator Name Role Phone Srinivasa Anderson MD Primary Care Provider [phone] Encounter Details Date Type Department Care Team (Latest Contact Info) Description 02/14/2005 Outpatient Historical [facility] [address] [place] [id number] Shelia Alberto, RN NO ADDRESS ON FILE SCREENING-CARDIOVAS C NEC (Primary Dx) Social History Tobacco Use Types Packs/Day Years Used Date Smoking Tobacco: Never Assessed Sex and Gender Information Value Date Recorded Sex Assigned at Not on file Legal Sex Male 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
[2025-02-18 13:04] VITALS: BP 133/72; PULSE 64; TEMP 36.9; O2SAT 96
--- NOTE | 2025-02-18 17:25 | CTR_ITS ---
PROCEDURE INFORMATION: Exam: CTA Chest With Contrast Exam date and time: 02/18/2025 6:16 PM Age: 89 years old Clinical indication: Abnormal findings; Abnormal diagnostic tests; Other: Abnormal lab; PT arrives pov for eval of abnormal results. PT was seen at [facility] for follow up and labs yesterday and was told to come here today for eval of R lower lung pe. pt unable to raise lt arm above head due to iv placement; Additional info: Abnormal lab, question of pe, patient has watchman TECHNIQUE: Imaging protocol: Computed tomographic angiography of the chest with contrast. Exam focused on the arteries. 3D rendering (Not supervised by radiologist): MIP and/or 3D reconstructed images were created by the technologist. Radiation optimization: All CT scans at this facility use at least one of these dose optimization techniques: automated exposure control; mA and/or kV adjustment per patient size (includes targeted exams where dose is matched to clinical indication); or iterative reconstruction. Contrast material: [id number]; Contrast volume: 100 ml; Contrast route: INTRAVENOUS (IV); COMPARISON: CT chest wo con [id number] 09/02/2024 3:59 PM RADIATION DOSE METRICS: Total DLP (mGy-cm): 478.04 FINDINGS: Pulmonary arteries: No definite significant pulmonary embolism or right heart strain. Aorta: Aortic and coronary atherosclerosis. Ascending aortic aneurysm to 4.4 cm at level of right main pulmonary artery. Lungs: Moderate right effusion, associated compressive atelectasis and probable right lower lobe infiltrate. Few nonspecific although tiny granulomas and pulmonary nodules, not typically requiring follow-up by Fleischner society guidelines given small size Pleural spaces: Unremarkable. No pneumothorax. No pleural effusion. Heart: Probable [id number] cardiomegaly. Lymph nodes: Unremarkable. No enlarged lymph nodes. Liver: Nonspecific although commonly benign hepatic cysts. Kidneys: Nonspecific although commonly benign renal cysts. Intestine: Colonic diverticulosis without definite significant acute inflammatory changes. Bones/joints: Moderate to severe bony degenerative changes of the thoracic vertebral bodies with multilevel endplate spurring and disc space narrowing. Thoracic kyphosis. Soft tissues: Unremarkable. Other findings: Trace left effusion. CT/CT angio chest PE protcl [id number] IMPRESSION: 1. No definite significant pulmonary embolism or right heart strain. 2. Moderate right effusion, associated compressive atelectasis and probable right lower lobe infiltrate. COMMENTS: Consistent with the [employer]'s Incidental Findings Committee white paper (J Am Zia Radiol 2018): Any incidental renal lesion less than 1 cm or classified as too small to characterize, or any incidental cystic renal lesion characterized as simple-appearing, is likely benign. No follow-up imaging is recommended for these lesions per consensus recommendations based on imaging criteria.
[2025-02-18 17:30] LABS: Hematocrit 36.6 % (37-53); Hemoglobin 11.20 g/dL (11.27-16.99); Mean Corpuscular HGB Conc 30.6 g/dL (30-55); Mean Corpuscular Hemoglobin 28.0 pg (27-33); Mean Corpuscular Volume 91.5 fl (82-101); Nucleated Red Blood Cells % 0 %; Platelet Count 143 10^3/cmm (157-399); Red Blood Count 4.00 10^6/uL (3.85-5.65); White Blood Count 9.76 10^3/uL (3.29-11.43)
[2025-02-18 17:42] LABS: INR 1.05 (0.8-1.2); Partial Thromboplastin Time 23.1 SECONDS (23.9-36.7); Prothrombin Time 14.40 SECONDS (12.1-14.9)
[2025-02-18 17:47] LABS: Lactic Sepsis W/Reflex 1.4 mmol/L (0.5-2.2)
--- NOTE | 2025-02-18 17:52 | W.ED.RECABL ---
HPI - Recheck/Abnormal Lab/Rx General: Chief Complaint: Recheck/Abnormal Lab/Rx Stated Complaint: Dr oneill Abnormal Lab Time Seen by Provider: 02/18/25 16:54 History of Present Illness: Patient is a 89-year-old gentleman, that presented to the ED due to abnormal labs with [facility], and concern of right lower lobe pulmonary embolism. Patient has permanent atrial fibrillation, Watchman device. Vital signs are stable. He does not have any shortness of breath or chest pain. Selected Entries 02/18/25 13:04 ED Triage Comment PT ARRIVES POV FOR EVAL OF ABNORMAL RESULTS. PT WAS SE EN AT [facility] FOR FOLLOW U P AND LABS YESTERD AY AND WAS TOLD TO COME HERE TODAY F OR EVAL OF R LOWER LUNG PE. DENIES B LOOD THINNER USE. Description of abnormal result: Concern for PE at [facility]. Related Data Home Medications ?Medication ?Instructions ?Recorded ?Confirmed acetaminophen 325 mg tablet 325 mg PO QID PRN Pain 01/24/24 02/12/25 (Tylenol) fluticasone propionate 50 1 spray intranasal BID PRN 01/24/24 02/12/25 mcg/actuation nasal allergies spray,suspension (Flonase Allergy Relief) losartan 100 mg tablet 50 mg PO DAILY 01/24/24 02/12/25 prednisone 5 mg tablet 5 mg PO DAILY 01/24/24 02/12/25 tamsulosin 0.4 mg capsule 0.4 mg PO DAILY 01/24/24 02/12/25 trazodone 100 mg tablet 100 mg PO BEDTIME PRN sleep 01/24/24 02/12/25 amlodipine 10 mg tablet 10 mg PO DAILY 03/17/24 02/12/25 guaifenesin 600 mg tablet, 600 mg PO BID PRN Congestion 09/02/24 02/12/25 extended release 12 hr (Mucinex) aspirin 81 mg tablet,delayed 81 mg PO DAILY 12/09/24 02/12/25 release doxycycline hyclate 100 mg capsule 100 mg PO BID x10d 02/12/25 02/12/25 neomycin 3.5 mg/g-polymyxin B See Rx Instructions .Route .COMPLEX 02/12/25 02/12/25 10,000 unit/g-dexameth 0.1 % eye oint prednisone 20 mg tablet 20 mg PO DAILY 02/12/25 02/12/25 Previous Rx's ?Medication ?Instructions ?Recorded blood sugar diagnostic (Contour #50 ea 05/18/22 Next Test Strips) pregabalin 75 mg capsule 75 mg PO BID #60 caps 12/09/24 gabapentin 300 mg capsule 300 mg PO TID pain #60 caps 01/08/25 valacyclovir 1 gram tablet 1,000 mg PO Q8H 10 days #30 tabs 01/08/25 clobetasol 0.05 % topical cream 1 applic topical BID 2 weeks #45 01/16/25 grams methylprednisolone 4 mg tablets in See Rx Instructions PO .COMPLEX 02/12/25 a dose pack (Medrol (Sarkis)) #21 ea tadalafil 5 mg tablet (Cialis) 5 mg PO DAILY #90 tabs 02/12/25 doxycycline hyclate 100 mg capsule 100 mg PO BID 10 days #20 caps 02/18/25 Allergies Allergy/AdvReac Type Severity Reaction Status Date / Time No Known Allergies Allergy Verified 02/18/25 13:17 Review of Systems General: Reports: 10 or more systems reviewed and unremarkable except in HPI and below Const: Denies: fever(s), chills or fatigue Card: Denies: chest pain, palpitations or swelling of feet/ankles Resp: Reports: dyspnea and non-productive cough; Denies: productive cough GI: Denies: abdominal pain, nausea, vomiting or diarrhea : Denies: flank pain Musc: Denies: extremity swelling Skin/Breast: Denies: rash (Rash has improved) or pruritus Neuro: Denies: headache(s), numbness in extremities, weakness in extremities or confusion Psych: Denies: anxiety or depression [facility] ED PFSH: Medical History (Updated 02/18/25 @ 19:21 by NAI Villalta) History of transcatheter aortic valve replacement (TAVR) History of colon polyps Impairment of balance Sleeplessness Left inguinal hernia Urinary hesitancy Nocturia more than twice per night Change in stool habits Abdominal discomfort Hx of basal cell carcinoma Allergic rhinitis Chronic neck pain Type 2 diabetes mellitus Diet managed Chronic anticoagulation INR goal 2-3 Hx pulmonary embolism Hypertension Surgical History History of inguinal hernia repair History of mitral valve repair History of colonoscopy History of esophagogastroduodenoscopy Hx of cataract surgery Family History Other CAD (coronary artery disease) Cancer Diabetes Heart attack Hyperlipidemia Hypertension Rheumatoid arthritis Stroke Denies family history of Lupus Chronic kidney disease (CKD) Social History Smoking and tobacco/nicotine status: never used tobacco/nicotine Quit status (tobacco/nicotine): has quit using Former quit date comment: over 40 years ago Alcohol intake: current Alcohol intake frequency: few times a week Substance/Drug Use: never Physical Exam Const: COMMON NORMALS: no acute distress, average body habitus and patient oriented x3 HENMT: COMMON NORMALS: normocephalic and atraumatic HEAD & SCALP: normocephalic and atraumatic Neck/C-Spine: COMMON NORMALS: full ROM, no lymphadenopathy and supple Lymph: LYMPHATIC: no lymphadenopathy noted Chest: COMMONS NORMALS: normal inspection of the chest and normal palpation of entire chest wall Resp: COMMON NORMALS: normal respiratory effort and No retractions AUSCULTATION: rales on the right in the lower lung wen PERCUSSION: dullness Cardio: OTHER: Irregularly irregular, systolic ejection murmur GI: COMMON NORMALS: Normal to inspection, nondistended, normoactive bowel sounds present, Soft to palpation, non-tender and No hepatosplenomegaly present PALPATION: Yes Soft to palpation and Yes No hepatosplenomegaly present : COMMON NORMALS: Yes no CVA tenderness BLADDER/KIDNEY EXAM: Yes no CVA tenderness Back/Pelvis: COMMON NORMALS: no CVA tenderness and thoracic and lumbar spine normal to inspection Extremity: COMMON NORMALS: full ROM and capillary refill normal Neuro: COMMON NORMALS: patient oriented x3 Course Vital Signs: Vital signs: Vital Signs Temperature 98.4 F 02/18/25 13:04 Pulse Rate 70 02/18/25 18:12 Blood Pressure 176/96 02/18/25 18:12 Pulse Oximetry 99 02/18/25 18:12 Oxygen Delivery Me thod Room Air 02/18/25 18:12 MDM - Recheck/Abnormal Lab/Rx Medical Decision Making Patient is an 89-year-old gentleman, pleasant, with recent dermal hypersensitivity reaction, now resolved after stopping tamsulosin, presents to the emergency room due to abnormal findings at [facility] with concern of right lower lobe PE. CTA was performed and parapneumonic effusion was noted. He will be treated with antibiotics, and serial chest x-rays. Explained to patient, and wrote this down for patient and son present. All their questions answered to their satisfaction. Medical Records I reviewed the patient's medical records. Lab Data I reviewed the patient's lab results. 02/18/25 17:15 02/18/25 17:15 Radiology Impressions Chest CTA 02/18/25 17:25 IMPRESSION: 1. No definite significant pulmonary embolism or right heart strain. 2. Moderate right effusion, associated compressive atelectasis and probable right lower lobe infiltrate. COMMENTS: Consistent with the [place] [employer]'s Incidental Findings Committee white paper (J Am Zia Radiol 2018): Any incidental renal lesion less than 1 cm or classified as too small to characterize, or any incidental cystic renal lesion characterized as simple-appearing, is likely benign. No follow-up imaging is recommended for these lesions per consensus recommendations based on imaging criteria. Laboratory Results WBC 9.76 10^3/uL (3.29-11.43) 02/18/25 17:15 RBC 4.00 10^6/uL (3.85-5.65) 02/18/25 17:15 Hgb 11.20 g/dL (11.27-16.99) L 02/18/25 17:15 Hct 36.6 % (37-53) L 02/18/25 17:15 MCV 91.5 fl (82-101) 02/18/25 17:15 MCH 28.0 pg (27-33) 02/18/25 17:15 MCHC 30.6 g/dL (30-55) 02/18/25 17:15 RDW 19.0 % (12.1-15.1) H 02/18/25 17:15 Plt Count 143 10^3/cmm (157-399) L 02/18/25 17:15 MPV 12.4 fL (7.4-10.4) H 02/18/25 17:15 Neut % (Auto) 76.3 % 02/18/25 17:15 Lymph % (Auto) 9.4 % 02/18/25 17:15 Alfalfa % (Auto) 10.6 % 02/18/25 17:15 Eos % (Auto) 0.8 % 02/18/25 17:15 Baso % (Auto) 0.2 % 02/18/25 17:15 Neut # (Auto) 7.45 10^3/uL (1.8-7.7) 02/18/25 17:15 Lymph # (Auto) 0.9 10^3/uL (0.8-4.8) 02/18/25 17:15 Alfalfa # (Auto) 1.0 10^3/uL (0.2-0.9) H 02/18/25 17:15 Eos # (Auto) 0.1 10^3/uL (0.0-0.8) 02/18/25 17:15 Baso # (Auto) 0.0 10^3/uL (0.0-0.1) 02/18/25 17:15 Nucleated RBC % (auto) 0 % 02/18/25 17:15 Nucleated RBCs # 0.0 /100WBC 02/18/25 17:15 PT 14.40 SECONDS (12.1-14.9) 02/18/25 17:15 INR 1.05 (0.8-1.2) 02/18/25 17:15 APTT 23.1 SECONDS (23.9-36.7) L 02/18/25 17:15 Sodium 142 mmol/L (136-145) 02/18/25 17:15 Potassium 4.0 mmol/L (3.5-5.1) 02/18/25 17:15 Chloride 107 mmol/L (98-107) 02/18/25 17:15 Carbon Dioxide 23 mmol/L (22-29) 02/18/25 17:15 Anion Gap 16.0 (5-19) 02/18/25 17:15 BUN 56 mg/dL (8-23) H 02/18/25 17:15 Creatinine 1.5 mg/dL (0.7-1.2) H 02/18/25 17:15 GFR Calculation Not Reportable 02/18/25 17:15 Glucose 106 mg/dL (65-115) 02/18/25 17:15 Calculated Osmolality 310 mOsm/kg (285-295) H 02/18/25 17:15 Lactic Acid 1.4 mmol/L (0.5-2.2) 02/18/25 17:15 Calcium 8.7 mg/dL (8.5-10.5) 02/18/25 17:15 Total Bilirubin 1.1 mg/dL (0.15-1.2) 02/18/25 17:15 AST 36 U/L (0-40) 02/18/25 17:15 ALT 53 U/L (0-41) H 02/18/25 17:15 Alkaline Phosphatase 104 U/L (40-130) 02/18/25 17:15 NT-Pro-B Natriuret Pep 5638 pg/mL (0-450) H 02/18/25 17:15 Total Protein 7.9 g/dL (6.6-8.7) 02/18/25 17:15 Albumin 4.0 g/dL (3.5-5.2) 02/18/25 17:15 Globulin 3.9 g/dL (1.3-4.6) 02/18/25 17:15 All radiology interpretation(s) finalized by discharge Discharge Plan Discharge Patient Disposition: Home Clinical Impression: Parapneumonic effusion, Pleural effusion Condition: Stable Prescriptions: New doxycycline hyclate 100 mg capsule 100 mg PO BID 10 Days Qty: 20 0RF No Action valacyclovir 1 gram tablet 1,000 mg PO Q8H 10 Days Qty: 30 0RF gabapentin 300 mg capsule 300 mg PO TID Qty: 60 0RF clobetasol 0.05 % cream 1 applic topical BID 14 Days Qty: 45 0RF (DME) Contour Next Test Strips Strip See Rx Instructions .Route Qty: 50 11RF Rx Instructions: use to test blood sugar once daily prednisone 5 mg tablet 5 mg PO DAILY tamsulosin 0.4 mg capsule 0.4 mg PO DAILY trazodone 100 mg tablet 100 mg PO BEDTIME PRN (Reason: sleep ) losartan 100 mg tablet 50 mg PO DAILY fluticasone propionate [Flonase Allergy Relief] 50 mcg/actuation spray,suspension 1 spray intranasal BID PRN (Reason: allergies) Rx Instructions: administer into each nostril acetaminophen [Tylenol] 325 mg Tablet 325 mg PO QID PRN (Reason: Pain) aspirin [Aspir-81] 81 mg Tablet,Delayed Release (Dr/Ec) 81 mg PO DAILY pregabalin 75 mg capsule 75 mg PO BID Qty: 60 0RF amlodipine 10 mg tablet 10 mg PO DAILY guaifenesin [Mucinex] 600 mg Tablet Extended Release 12hr 600 mg PO BID PRN (Reason: Congestion) doxycycline hyclate 100 mg capsule 100 mg PO BID neomycin-polymyxin B-dexameth 3.5 mg/g-10,000 unit/g-0.1 % ointment See Rx Instructions .ROUTE .COMPLEX Rx Instructions: APPLY SMALL AMOUNT IN THE LEFT EYELID THREE TIMES DAILY DIRECTED. prednisone 20 mg tablet 20 mg PO DAILY tadalafil [Cialis] 5 mg tablet 5 mg PO DAILY Qty: 90 0RF methylprednisolone [Medrol (Sarkis)] 4 mg tablets,dose pack See Rx Instructions PO .COMPLEX Qty: 21 0RF Rx Instructions: for 6 days Discharge Orders: Discharge ED (Routine); Ordered 02/18/25 Ordered By: Emilia Dinero Referrals: Srinivasa Anderson MD [Primary Care Provider, [facility]] Discharge Diet: Usual diet Discharge Activity: Limit activity as instructed Patient Instructions: Pneumonia (ED), Pleural Effusion, Patient Portal & Jenna Instructions Activity Restrictions/Additional Instructions: - Your antibiotics are at [facility] and [facility] -Start your antibiotics the morning. Make sure you eat a daily daily active culture yogurt or take a probiotic - You will need your chest x-ray repeated next week. I will make a referral for chest x-ray, and follow-up for Dr. Fu. -Return to the ED if you have worsening symptoms. Right now you do not need to be admitted Thank you for choosing [facility] for your healthcare needs today. You have been screened and evaluated and felt safe for discharge. Health conditions do change or evolve sometimes and as such it is important that you follow up with your Primary Doctor to be re checked, 3-5 days is a general good time frame for follow up. You are always welcome to return to the ED for re assessment if your symptoms are worsening or you have new concerns Print Language: Lao Coding Level of Care Code ED Global Cmo for Steffany Redmond
[2025-02-18 18:03] LABS: Alanine Aminotransferase 53 U/L (0-41); Albumin Level 4.0 g/dL (3.5-5.2); Alkaline Phosphatase 104 U/L (40-130); Anion Gap 16.0 (5-19); Aspartate Amino Transferase 36 U/L (0-40); Blood Urea Nitrogen 56 mg/dL (8-23); Calcium 8.7 mg/dL (8.5-10.5); Carbon Dioxide 23 mmol/L (22-29); Chloride 107 mmol/L (98-107); Creatinine Clr Calc Pharmacy 41.5848; Globulin 3.9 g/dL (1.3-4.6); Glucose 106 mg/dL (65-115); NT Pro B Type Natriuretic Pept 5638 pg/mL (0-450); Osmolality Calculated 310 mOsm/kg (285-295); Potassium 4.0 mmol/L (3.5-5.1); Sodium 142 mmol/L (136-145); Total Protein 7.9 g/dL (6.6-8.7)
[2025-02-18 18:12] VITALS: BP 176/96; PULSE 70; O2SAT 99
[2025-02-18] MEDS: iohexol 350 mg/mL 500 mL Btl (per mL) IV (18:21)
[2025-02-18] MEDS: cefTRIAXone 2,000 mg SDV 2000 MG IVP (19:25)
--- NOTE | 2025-02-19 08:48 | DCPLANNER ---
[facility] office for er f/u
== END 2025-02-18 19:54 | disposition home or self-care (01) ==
PROVIDERS: Emergency Medicine; Emergency Provider Physician Assistant; PCP Family Medicine
DX: J90 Pleural effusion, not elsewhere classified (principal); J91.8 Pleural effusion in other conditions classified elsewhere; Z79.82 Long term (current) use of aspirin; Z87.891 Personal history of nicotine dependence; E11.9 Type 2 diabetes mellitus without complications; I10 Essential (primary) hypertension; Z85.828 Personal history of other malignant neoplasm of skin
CPT/HCPCS: 36415; 71275; 80053; 83605; 83880; 85025; 85610; 85730; 93005; 96374; 99285; J0696; J9999

== ENCOUNTER → 2025-02-23 08:32 | Outpatient (BNVA) | payer MEDICARE, SELFPAY | PROVIDERS: PCP Family Medicine; Visit Provider Dermatology | DX: L30.9 Dermatitis, unspecified (principal) | CPT/HCPCS: 11104; 11105; 99214 ==

== ENCOUNTER → 2025-03-03 10:14 | Outpatient (BNVA) | payer MEDICARE, SELFPAY | PROVIDERS: PCP Family Medicine; Visit Provider Dermatology | DX: L27.0 Generalized skin eruption due to drugs and medicaments taken internally (principal); L20.89 Other atopic dermatitis | CPT/HCPCS: 99214 ==

== ENCOUNTER → 2025-03-08 13:41 | Outpatient (BNVA) | payer MEDICARE, SELFPAY | PROVIDERS: PCP Family Medicine; Visit Provider Internal Medicine Rheumatology | DX: M35.00 Sjogren syndrome, unspecified (principal); R76.89 Other specified abnormal immunological findings in serum; M13.0 Polyarthritis, unspecified; L27.0 Generalized skin eruption due to drugs and medicaments taken internally; Z79.899 Other long term (current) drug therapy; I50.9 Heart failure, unspecified; N18.9 Chronic kidney disease, unspecified | CPT/HCPCS: 99204 ==

== ENCOUNTER → 2025-03-11 10:45 | Outpatient (BNVA) | payer MEDICARE, SELFPAY | PROVIDERS: PCP Family Medicine; Visit Provider Podiatrist Foot & Ankle Surgery | DX: I73.9 Peripheral vascular disease, unspecified (principal); L60.3 Nail dystrophy; L84 Corns and callosities; G62.9 Polyneuropathy, unspecified; M20.41 Other hammer toe(s) (acquired), right foot; M20.42 Other hammer toe(s) (acquired), left foot | CPT/HCPCS: 11055; 11721; 99213 ==

== ENCOUNTER → 2025-03-25 10:26 | Outpatient (BNVA) | payer MEDICARE, SELFPAY | PROVIDERS: PCP Family Medicine; Visit Provider Dermatology | DX: L20.89 Other atopic dermatitis (principal); L27.0 Generalized skin eruption due to drugs and medicaments taken internally; K42.9 Umbilical hernia without obstruction or gangrene; R60.0 Localized edema; Z08 Encounter for follow-up examination after completed treatment for malignant neoplasm; Z85.820 Personal history of malignant melanoma of skin | CPT/HCPCS: 99214 ==

== ENCOUNTER → 2025-03-29 10:30 | Outpatient (BNVA) | payer MEDICARE, SELFPAY | PROVIDERS: PCP Family Medicine; Visit Provider Dermatology | DX: I87.2 Venous insufficiency (chronic) (peripheral) (principal); M79.3 Panniculitis, unspecified; L20.89 Other atopic dermatitis; L27.0 Generalized skin eruption due to drugs and medicaments taken internally; R60.0 Localized edema; Z85.828 Personal history of other malignant neoplasm of skin; Z08 Encounter for follow-up examination after completed treatment for malignant neoplasm; Z85.820 Personal history of malignant melanoma of skin | CPT/HCPCS: 99214 ==

== ENCOUNTER → 2025-04-02 10:49 | Outpatient (BNVA) | payer MEDICARE, SELFPAY | PROVIDERS: PCP Family Medicine; Visit Provider Podiatrist Foot & Ankle Surgery | DX: M20.41 Other hammer toe(s) (acquired), right foot (principal); M20.42 Other hammer toe(s) (acquired), left foot; L08.9 Local infection of the skin and subcutaneous tissue, unspecified; G62.9 Polyneuropathy, unspecified; I73.9 Peripheral vascular disease, unspecified; L60.3 Nail dystrophy | CPT/HCPCS: 28011; 99214; A6219; J9999 ==

== ENCOUNTER → 2025-04-08 10:29 | Outpatient (BNVA) | payer MEDICARE, SELFPAY | PROVIDERS: PCP Family Medicine; Visit Provider Family Medicine | DX: I10 Essential (primary) hypertension (principal); I50.32 Chronic diastolic (congestive) heart failure | CPT/HCPCS: 80053; 83880; 85025 ==

== ENCOUNTER 2025-04-09 12:59 | Inpatient (IN) | payer MEDICARE, SELFPAY ==
[2025-04-09 13:04] VITALS: BP 118/62; PULSE 62; RESP 18; TEMP 36.3; O2SAT 98
--- OUTSIDE RECORDS SUMMARY | 2025-04-09 13:04 | XMS_ITS | Encounter Summary ---
Author Organization [facility] Address [address] [place] [address] Care Team Providers Care Heel Attacher Wood Name Role Phone Srinivasa Anderson MD Primary Care Provider [phone] Encounter Details Date Type Department Care Team (Latest Contact Info) Description 01/16/2007 Outpatient Historical [facility] [address] [place] [address] Srinivasa Anderson MD [address] [place] [address] Other Abnormal Blood Chemistry (Primary Dx); Iatrogenic Pulmonary Embolism and Infarction (CMS/HCC); Other and Unspecified Hyperlipidemia; Other Testicular Hypofunction Social History Tobacco Use Types Packs/Day Years Used Date Smoking Tobacco: Never Assessed Sex and Gender Information Value Date Recorded Sex Assigned at Not on file Legal Sex Male 3:08 AM 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/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 FIELD 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 Gender Identity Not on file Sexual Orientation Not on file documented as of this encounter Plan of Treatment Not on file documented as of this encounter Visit Diagnoses Diagnosis Other abnormal blood chemistry- Primary Iatrogenic pulmonary embolism and infarction (CMS/HCC) Iatrogenic pulmonary embolism and infarction Other and unspecified hyperlipidemia Other testicular hypofunction documented in this encounter Care Teams Heel Attacher Wood Relationship Specialty Start Date End Date Srinivasa Anderson MD [address] [place] [id number] PCP - General 07/18/04 documented as of this encounter
--- OUTSIDE RECORDS SUMMARY | 2025-04-09 13:04 | XMS_ITS | Encounter Summary ---
Author Organization [facility] Address [address] [place] [address] Care Team Providers Care Digital Advertising Analyst Name Role Phone Srinivasa Anderson MD Primary Care Provider [phone] Encounter Details Date Type Department Care Team (Latest Contact Info) Description 08/15/2006 Outpatient Historical [facility] [place] [address] [place] [address] Srinivasa Anderson MD [address] [place] [address] Other Testicular Hypofunction (Primary Dx) Social History Tobacco Use Types Packs/Day Years Used Date Smoking Tobacco: Never Assessed Sex and Gender Information Value Date Recorded Sex Assigned at Not on file Legal Sex Male 3:08 AM CAN WASHER Gender Identity Not on file Sexual Orientation Not on file documented as of this encounter Plan of Treatment Not on file documented as of this encounter Visit Diagnoses Diagnosis Other testicular hypofunction- Primary documented in this encounter Care Teams Digital Advertising Analyst Relationship Specialty Start Date End Date Srinivasa Anderson MD [address] [place] [address] PCP - General 07/18/04 documented as of this encounter
--- OUTSIDE RECORDS SUMMARY | 2025-04-09 13:04 | XMS_ITS | Encounter Summary ---
Author Organization [facility] Address [address] [place] [address] Care Team Providers Care Basic Sciences Professor Name Role Phone Srinivasa Anderson MD Primary Care Provider [phone] Encounter Details Date Type Department Care Team (Late st Contact Info) Description 03/05/2025 Lab Requisition [facility] Services [address] [place] [address] Fran Mancilla, BRICK UNLOADER TENDER [address] [facility] [address] [place] [phone] Essential (primary) hypertension Social History Tobacco Use Types Packs/Day [...] on file Legal Sex Male 6:28 AM SPECIAL EVENTS COORDINATOR Gender Identity Not on file Sexual Orientation Not on file documented as of this encounter Plan of Treatment Upcoming Encounters Date Type Department Care Team (Late st Contact Info) Description 06/29/2025 8:00 AM CDT Procedure visit [facility] [address] [place] [phone] Mariela Stone MD [address] [place] [phone] 07/08/2025 1:00 PM CDT Office Visit [facility] [address] [place] [address] Kodak Samuel MD [address] [place] [phone] 03/28/2026 11:00 AM SPECIAL EVENTS COORDINATOR Office Visit [facility] [address] [place] [phone] Dominic Haskins CRNP [address], [address] [place] [phone] Mariela Stone MD [address] [place] [phone] Mayra Mohr NP [address], [address] [place] [phone] documented as of this encounter Procedures Procedure Name Priority Date/Time Associated Diagnosis Comments EXTRA TUBE (LAV) Routine 03/05/2025 12:3 3 PM SPECIAL EVENTS COORDINATOR Essential (primary) hypertension BRAIN NATRIURETIC PEPTIDE, BNP OR PROBNP Stat 03/05/2025 12:33 PM SPECIAL EVENTS COORDINATOR Essential (primary) hypertension BASIC METABOLIC PANEL Stat 03/05/2025 12:33 PM SPECIAL EVENTS COORDINATOR Essential (primary) hypertension documented in this encounter Results * (ABNORMAL) BASIC METABOLIC PANEL (03/05/2025 12:33 PM SPECIAL EVENTS COORDINATOR) SODIUM 133(L) 136 - 145 mmol/L 03/05/2025 2:43 PM [facility] POTASSIUM 3.4(L) 3.5 - 5.1 mmol/L 03/05/2025 2:43 PM [facility] CHLORIDE 93(L) 98 - 107 mmol/L 03/05/2025 2:43 PM [facility] CO2 28 22 - 29 mmol/L 03/05/2025 2:43 PM [facility] CALCIUM 8.4(L) 8.8 - 10.2 mg/dL 03/05/2025 2:43 PM [facility] BUN 66(H) 8 - 23 mg/dL 03/05/2025 2:43 PM [facility] CREATININE 1.82(H) 0.67 - 1.17 mg/dL 03/05/2025 2:43 PM [facility] Comment:The GFR result is no t clinically significant on patients <18 or >70 years of age. GLUCOSE 117(H) 74 - 99 mg/dL 03/05/2025 2:43 PM [facility] GFR 36 mL/min/1. 73 sq meter 03/05/2025 2:43 PM [facility] Comment:eGFR calculated with 2020 CKD-EPI equation. Vegetarian diet, extremely high or low muscle mass, and may affect results. Cystatin C with Glomerular Filtration Rate is a suitable alternative for these patients. ANION GAP 12 9 - 20 mmol/L 03/05/2025 2:43 PM [facility] Blood Collection / Unknown 03/05/2025 12:33 PM SPECIAL EVENTS COORDINATOR 03/05/2025 2:21 PM SPECIAL EVENTS COORDINATOR us Fran P Huslig BRICK UNLOADER TENDER CHEMISTRY ORDERABLES Final Resu lt Performing Organization Address [facility] Co de Phone Number [facility] CLIA # [id number] [address] [address] * EXTRA TUBE (LAV) (03/05/2025 12:33 PM SPECIAL EVENTS COORDINATOR) Blood Collection / Unknown 03/05/2025 12:33 PM SPECIAL EVENTS COORDINATOR 03/05/2025 2:22 PM SPECIAL EVENTS COORDINATOR us Fran Mancilla NP HEMATOLOGY ORDERABLES Final Res ult Performing Organization Address [facility] de Phone Number [facility] CLIA # [id number] [address] [address] * (ABNORMAL) BRAIN NATRIURETIC PEPTIDE, BNP OR PROBNP (03/05/2025 12:33 PM SPECIAL EVENTS COORDINATOR) PROBNP, N TERMINAL 3,436(H) 0 - 450 pg/mL 03/05/2025 2:43 PM SPECIAL EVENTS COORDINATOR [facility] Comment: INTERPRETIVE COMMENT based on diagnosis: Diagnostic [...] years: >1800 pg/mL Blood Collection / Unknown 03/05/2025 12:33 PM SPECIAL EVENTS COORDINATOR 03/05/2025 2:21 PM SPECIAL EVENTS COORDINATOR us Fran Mancilla NP CHEMISTRY ORDERABLES Final Resu lt Performing Organization Address [facility] Co de Phone Number [facility] CLIA # [id number] [address] [facility] [place] [address] documented in this encounter Visit Diagnoses Diagnosis Essential (primary) hypertension Unspecified essential hypertension documented in this encounter Care Teams Basic Sciences Professor Relationship Specialty Start Date End Date Srinivasa Anderson MD [address] [phone] PCP - General Family Practice 05/18/24 documented as of this encounter
--- OUTSIDE RECORDS SUMMARY | 2025-04-09 13:04 | XMS_ITS | Encounter Summary ---
Author Organization [facility] Address [address] [place] [address] Care Team Providers Care Sales Development Executive Name Role Phone Srinivasa Anderson MD Primary Care Provider [phone] Encounter Details Date Type Department Care Team (Late st Contact Info) Description 05/03/2006 Outpatient Historical [facility] [address] [place] [address] Srinivasa Anderson MD [address] [phone] Social History Tobacco Use Types Packs/Day Years Used Date Smoking Tobacco: Never Assessed Sex and Gender Information Value Date Recorded Sex Assigned at Not on file Legal Sex Male 3:08 AM DIE SINKER Gender Identity Not on file Sexual Orientation Not on file documented as of this encounter Plan of Treatment Not on file documented as of this encounter Visit Diagnoses Not on filedocumented in this encounter Care Teams Sales Development Executive Relationship Specialty Start Date End Date Srinivasa Anderson MD [address] [facility] [address] [place] [phone] PCP - General 07/18/04 documented as of this encounter
--- OUTSIDE RECORDS SUMMARY | 2025-04-09 13:04 | XMS_ITS | Encounter Summary ---
Author Organization [facility] Address [address] [facility] [place] [address] Care Team Providers Care Bonding Equipment Operator Name Role Phone Srinivasa Anderson MD Primary Care Provider [phone] Encounter Details Date Type Department Care Team (Latest Contact Info) Description 12/19/2006 Outpatient Historical [facility] [place] [place] [address] Srinivasa Anderson MD [address] [place] [address] Other Testicular Hypofunction (Primary Dx) Social History Tobacco Use Types Packs/Day Years Used Date Smoking Tobacco: Never Assessed Sex and Gender Information Value Date Recorded Sex Assigned at Not on file Legal Sex Male 3:08 AM WELDER BOILERMAKER Gender Identity Not on file Sexual Orientation Not on file documented as of this encounter Plan of Treatment Not on file documented as of this encounter Visit Diagnoses Diagnosis Other testicular hypofunction- Primary documented in this encounter Care Teams Bonding Equipment Operator Relationship Specialty Start Date End Date Srinivasa Anderson MD [address] [place] [address] PCP - General 07/18/04 documented as of this encounter
--- OUTSIDE RECORDS SUMMARY | 2025-04-09 13:04 | XMS_ITS | Encounter Summary ---
Author Organization [facility] Address [address] [place] [address] Care Team Providers Care Spa Assistant Manager Name Role Phone Srinivasa Anderson MD Primary Care Provider [phone] Encounter Details Date Type Department Care Team (Late st Contact Info) Description 03/29/2025 Results Follow-Up [facility] [place] [address] [facility] [address] [place] [phone] Mariela Stone MD [address] [facility] [address] [place] [phone] PACER PROGRAM/EVAL SINGLE LEAD Social History Tobacco Use Types Packs/Day Years [...] on file Legal Sex Male 6:28 AM TELECOMMUNICATIONS ENGINEER Gender Identity Not on file Sexual Orientation Not on file documented as of this encounter Miscellaneous Notes * Result Encounter Note - Mariela Stone MD - 03/29/2025 1:36 PM TELECOMMUNICATIONS ENGINEER My interpretation is in agreement with the above documentation. COMMUNICATIONS ENGINEER documented in this encounter Plan of Treatment Upcoming Encounters Date Type Department Care Team (Late st Contact Info) Description 06/29/2025 8:00 AM CDT Procedure visit [facility] [address] [place] [phone] Mariela Stone MD [address] [place] [phone] 07/08/2025 1:00 PM CDT Office Visit [facility] [address] [place] [phone] Kodak Samuel MD [address] [place] [phone] 03/28/2026 11:00 AM TELECOMMUNICATIONS ENGINEER Office Visit [facility] [address] [place] [phone] Dominic Haskins CRNP [address], [address] [place] [phone] Mariela Stone MD [address] [place] [phone] Mayra Mohr NP [address], [address] [place] [phone] documented as of this encounter Visit Diagnoses Not on filedocumented in this encounter Care Teams Spa Assistant Manager Relationship Specialty Start Date End Date Srinivasa Anderson MD [address] [phone] PCP - General Family Practice 05/18/24 documented as of this encounter
--- OUTSIDE RECORDS SUMMARY | 2025-04-09 13:04 | XMS_ITS | Encounter Summary ---
Author Organization [facility] Address [address] [place] [address] Care Team Providers Care Building Insulation Supervisor Name Role Phone Srinivasa Anderson MD Primary Care Provider [phone] Encounter Details Date Type Department Care Team (Latest Contact Info) Description 04/11/2006 Outpatient Historical [facility] [address] [place] [phone] Zoltan Mahoney MD NO ADDRESS ON FILE Actinic Keratosis (Primary Dx) Social History Tobacco Use Types Packs/Day Years Used Date Smoking Tobacco: Never Assessed Sex and Gender Information Value Date Recorded Sex Assigned at Not on file Legal Sex Male 3:08 AM MASSAGE THERAPIST Gender Identity Not on file Sexual Orientation Not on file documented as of this encounter Plan of Treatment Not on file documented as of this encounter Visit Diagnoses Diagnosis Actinic keratosis- Primary documented in this encounter Care Teams Building Insulation Supervisor Relationship Specialty Start Date End Date Srinivasa Anderson MD [address] [phone] PCP - General 07/18/04 documented as of this encounter
--- OUTSIDE RECORDS SUMMARY | 2025-04-09 13:04 | XMS_ITS | Encounter Summary ---
Author Organization [facility] Address [address] [place] [facility] [place] [address] Care Team Providers Care Domestic Violence Counselor Name Role Phone Srinivasa Anderson MD Primary Care Provider [phone] Encounter Details Date Type Department Care Team (Late st Contact Info) Description 04/02/2006 Outpatient Historical [facility] Social History Tobacco Use Types Packs/Day Years Used Date Smoking Tobacco: Never Assessed Sex and Gender Information Value Date Recorded Sex Assigned at Not on file Legal Sex Male 3:08 AM CLINICAL LIAISON Gender Identity Not on file Sexual Orientation Not on file documented as of this encounter Plan of Treatment Not on file documented as of this encounter Visit Diagnoses Not on filedocumented in this encounter Care Teams Domestic Violence Counselor Relationship Specialty Start Date End Date Srinivasa Anderson MD [address] [place] [phone] PCP - General 07/18/04 documented as of this encounter
--- OUTSIDE RECORDS SUMMARY | 2025-04-09 13:04 | XMS_ITS | Encounter Summary ---
Author Organization [facility] Address [address] [place] [address] Care Team Providers Care Senior Nurse Manager Name Role Phone Srinivasa Anderson MD Primary Care Provider [phone] Encounter Details Date Type Department Care Team (Latest Contact Info) Description 04/11/2006 Outpatient Historical [facility] [address] [place] [address] Zoltan Mahoney MD NO ADDRESS ON FILE Malig John Skin Ear (Primary Dx); Actinic Keratosis; Other Seborrheic Keratosis Social History Tobacco Use Types Packs/Day Years Used Date Smoking Tobacco: Never Assessed Sex and Gender Information Value Date Recorded Sex Assigned at Not on file Legal Sex Male 3:08 AM COPY MESSENGER Gender Identity Not on file Sexual Orientation Not on file documented as of this encounter Plan of Treatment Not on file documented as of this encounter Visit Diagnoses Diagnosis 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
--- OUTSIDE RECORDS SUMMARY | 2025-04-09 13:04 | XMS_ITS | Encounter Summary ---
Author Organization [facility] Address [address] [place] [address] Care Team Providers Care Fingerprint Clerk Name Role Phone Srinivasa Anderson MD Primary Care Provider [phone] Encounter Details Date Type Department Care Team (Latest Contact Info) Description 11/21/2006 Outpatient Historical [facility] [place] [place] [address] Srinivasa Anderson MD [address] [place] [address] Other Testicular Hypofunction (Primary Dx) Social History Tobacco Use Types Packs/Day Years Used Date Smoking Tobacco: Never Assessed Sex and Gender Information Value Date Recorded Sex Assigned at Not on file 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
--- OUTSIDE RECORDS SUMMARY | 2025-04-09 13:04 | XMS_ITS | Encounter Summary ---
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); Depressive Disorder, not Elsewhere Classified Social History Tobacco Use Types Packs/Day Years Used Date Smoking Tobacco: Never Assessed Sex and Gender Information Value Date Recorded Sex Assigned at Not on file Legal Sex Male 3:08 AM AUDIO RECORDING ENGINEER Gender Identity Not on file Sexual Orientation Not on file documented as of this encounter Plan of Treatment Not on file documented as of this encounter Visit Diagnoses Diagnosis Type II or unspecified type diabetes mellitus without mention of complication, not stated as uncontrolled- Primary Depressive disorder, not elsewhere classified documented in this encounter Care Teams Program Planner Relationship Specialty Start Date End Date Srinivasa Anderson MD [address] [place] [address] PCP - General 07/18/04 documented as of this encounter
--- OUTSIDE RECORDS SUMMARY | 2025-04-09 13:04 | XMS_ITS | Encounter Summary ---
Author Organization [facility] Address [address] [facility] [place] [address] Care Team Providers Care Administrative Specialist Name Role Phone Srinivasa Anderson MD Primary Care Provider [phone] Encounter Details Date Type Department Care Team (Latest Contact Info) Description 04/19/2006 Outpatient Historical [facility] [place] [place] [address] Srinivasa Anderson MD [address] [place] [address] Other Testicular Hypofunction (Primary Dx) Social History Tobacco Use Types Packs/Day Years Used Date Smoking Tobacco: Never Assessed Sex and Gender Information Value Date Recorded Sex Assigned at Not on file Legal Sex Male 3:08 AM LOOM CHANGER Gender Identity Not on file Sexual Orientation Not on file documented as of this encounter Plan of Treatment Not on file documented as of this encounter Visit Diagnoses Diagnosis Other testicular hypofunction- Primary documented in this encounter Care Teams Administrative Specialist Relationship Specialty Start Date End Date Srinivasa Anderson MD [address] [place] [address] PCP - General 07/18/04 documented as of this encounter
--- OUTSIDE RECORDS SUMMARY | 2025-04-09 13:04 | XMS_ITS | Encounter Summary ---
Author Organization [facility] Address [address] [place] [facility] [address] Care Team Providers Care Antique Furniture Restorer Name Role Phone Srinivasa Anderson MD Primary Care Provider [phone] Encounter Details Date Type Department Care Team (Latest Contact Info) Description 04/02/2006 Outpatient Historical [facility] [address] [place] [address] Srinivasa Anderson MD [address] [address] DM w/o Complication Type I, Uncontrolled (Primary Dx) Social History Tobacco Use Types Packs/Day Years Used Date Smoking Tobacco: Never Assessed Sex and Gender Information Value Date Recorded Sex Assigned at Not on file Legal Sex Male 3:08 AM MAIL SORTING SUPERVISOR Gender Identity Not on file Sexual Orientation Not on file documented as of this encounter Plan of Treatment Not on file documented as of this encounter Visit Diagnoses Diagnosis Type I (juvenile type) diabetes mellitus without mention of complication, uncontrolled- Primary documented in this encounter Care Teams Antique Furniture Restorer Relationship Specialty Start Date End Date Srinivasa Anderson MD [address] [facility] [address] [place] [address] PCP - General 07/18/04 documented as of this encounter
--- OUTSIDE RECORDS SUMMARY | 2025-04-09 13:04 | XMS_ITS | Encounter Summary ---
Author Organization [facility] Address [address] [facility] [place] [address] Care Team Providers Care Lab Aide Name Role Phone Srinivasa Anderson MD Primary Care Provider [phone] Encounter Details Date Type Department Care Team (Latest Contact Info) Description 2006 Outpatient Historical [facility] [place] [place] [address] Srinivasa Anderson MD [address] [place] [address] Other Testicular Hypofunction (Primary Dx) Social History Tobacco Use Types Packs/Day Years Used Date Smoking Tobacco: Never Assessed Sex and Gender Information Value Date Recorded Sex Assigned at Not on file Legal Sex Male 3:08 AM BULLET CASTING OPERATOR Gender Identity Not on file Sexual Orientation Not on file documented as of this encounter Plan of Treatment Not on file documented as of this encounter Visit Diagnoses Diagnosis Other testicular hypofunction- Primary documented in this encounter Care Teams Lab Aide Relationship Specialty Start Date End Date Srinivasa Anderson MD [address] [place] [address] PCP - General 07/18/04 documented as of this encounter
--- OUTSIDE RECORDS SUMMARY | 2025-04-09 13:04 | XMS_ITS | Encounter Summary ---
Author Organization [facility] Address [address] [facility] [place] [address] Care Team Providers Care Corrosion Control Fitter Name Role Phone Srinivasa Anderson MD Primary Care Provider [phone] Encounter Details Date Type Department Care Team (Latest Contact Info) Description 09/26/2006 Outpatient Historical [facility] [place] [place] [address] Srinivasa Anderson MD [address] [place] [address] Other Testicular Hypofunction (Primary Dx) Social History Tobacco Use Types Packs/Day Years Used Date Smoking Tobacco: Never Assessed Sex and Gender Information Value Date Recorded Sex Assigned at Not on file Legal Sex Male 3:08 AM CUSTODIAL MANAGER Gender Identity Not on file Sexual Orientation Not on file documented as of this encounter Plan of Treatment Not on file documented as of this encounter Visit Diagnoses Diagnosis Other testicular hypofunction- Primary documented in this encounter Care Teams Corrosion Control Fitter Relationship Specialty Start Date End Date Srinivasa Anderson MD [address] [place] [address] PCP - General 07/18/04 documented as of this encounter
--- OUTSIDE RECORDS SUMMARY | 2025-04-09 13:04 | XMS_ITS | Encounter Summary ---
Author Organization [facility] Address [address] [place] [address] Care Team Providers Care Material Stockkeeper Yard Name Role Phone Srinivasa Anderson MD Primary Care Provider [phone] Encounter Details Date Type Department Care Team (Late st Contact Info) Description 06/03/2006 Outpatient Historical [facility] [address] [place] [address] Srinivasa Anderson MD [address] [phone] Social History Tobacco Use Types Packs/Day Years Used Date Smoking Tobacco: Never Assessed Sex and Gender Information Value Date Recorded Sex Assigned at Not on file Legal Sex Male 3:08 AM MEDICINE WORKER Gender Identity Not on file Sexual Orientation Not on file documented as of this encounter Plan of Treatment Not on file documented as of this encounter Visit Diagnoses Not on filedocumented in this encounter Care Teams Material Stockkeeper Yard Relationship Specialty Start Date End Date Srinivasa Anderson MD [address] [facility] [address] [place] [address] PCP - General 07/18/04 documented as of this encounter
--- OUTSIDE RECORDS SUMMARY | 2025-04-09 13:04 | XMS_ITS | Encounter Summary ---
Author Organization [facility] Address [address] [place] [address] Care Team Providers Care Tie Tamper Name Role Phone Srinivasa Anderson MD Primary Care Provider [phone] Encounter Details Date Type Department Care Team (Latest Contact Info) Description 04/25/2006 Outpatient Historical [facility] [place] [place] [address] Srinivasa Anderson MD [address] [place] [address] Acute Sinusitis, Unspecified (Primary Dx) Social History Tobacco Use Types Packs/Day Years Used Date Smoking Tobacco: Never Assessed Sex and Gender Information Value Date Recorded Sex Assigned at Not on file 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
--- OUTSIDE RECORDS SUMMARY | 2025-04-09 13:04 | XMS_ITS | Encounter Summary ---
Author Organization [facility] Address [address] [facility] [place] [address] Care Team Providers Care Transmitter Chief Name Role Phone Srinivasa Anderson MD Primary Care Provider [phone] Encounter Details Date Type Department Care Team (Latest Contact Info) Description 10/10/2006 Outpatient [facility] [place] [address] [place] [address] Zoltan Mahoney MD NO ADDRESS ON FILE Actinic Keratosis (Primary Dx); Other Seborrheic Keratosis; Benign John Scalp/Skin Neck Social History Tobacco Use Types Packs/Day Years Used Date Smoking Tobacco: Never Assessed Sex and Gender Information Value Date Recorded Sex Assigned at Not on file 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
--- OUTSIDE RECORDS SUMMARY | 2025-04-09 13:04 | XMS_ITS | Encounter Summary ---
Author Organization [facility] Address [address] [facility] [place] [address] Care Team Providers Care Business Controller Name Role Phone Srinivasa Anderson MD Primary Care Provider [phone] Encounter Details Date Type Department Care Team (Latest Contact Info) Description 06/19/2006 Outpatient Historical [facility] [place] [place] [address] Srinivasa Anderson MD [address] [place] [address] Other Testicular Hypofunction (Primary Dx) Social History Tobacco Use Types Packs/Day Years Used Date Smoking Tobacco: Never Assessed Sex and Gender Information Value Date Recorded Sex Assigned at Not on file 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
--- OUTSIDE RECORDS SUMMARY | 2025-04-09 13:04 | XMS_ITS | Encounter Summary ---
Author Organization [facility] Address [address] [facility] [place] [address] Care Team Providers Care Circuit Designer Name Role Phone Srinivasa Anderson MD Primary Care Provider [phone] Encounter Details Date Type Department Care Team (Latest Contact Info) Description 12/21/2005 Outpatient Historical [facility] [place] [place] [address] Srinivasa Anderson MD [address] [place] [address] Other Malaise and Fatigue (Primary Dx); Other Testicular Hypofunction; Depressive Disorder, not Elsewhere Classified Social History Tobacco Use Types Packs/Day Years Used Date Smoking Tobacco: Never Assessed Sex and Gender Information Value Date Recorded Sex Assigned at Not on file 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
--- OUTSIDE RECORDS SUMMARY | 2025-04-09 13:04 | XMS_ITS | Encounter Summary ---
Author Organization [facility] Address [address] [place] [address] Care Team Providers Care Hat Steamer Name Role Phone Srinivasa Anderson MD Primary Care Provider [phone] Encounter Details Date Type Department Care Team (Latest Contact Info) Description 05/15/2006 Outpatient Historical [facility] [place] [place] [address] Srinivasa Anderson MD [address] [place] [address] Other Testicular Hypofunction (Primary Dx) Social History Tobacco Use Types Packs/Day Years Used Date Smoking Tobacco: Never Assessed Sex and Gender Information Value Date Recorded Sex Assigned at Not on file 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
--- OUTSIDE RECORDS SUMMARY | 2025-04-09 13:04 | XMS_ITS | Encounter Summary ---
Author Organization [facility] Address [address] [facility] [place] [address] Care Team Providers Care Franchise Sales Manager Name Role Phone Srinivasa Anderson MD Primary Care Provider [phone] Encounter Details Date Type Department Care Team (Latest Contact Info) Description 10/24/2006 Outpatient Historical [facility] [place] [place] [address] Srinivasa Anderson MD [address] [place] [address] Other Testicular Hypofunction (Primary Dx) Social History Tobacco Use Types Packs/Day Years Used Date Smoking Tobacco: Never Assessed Sex and Gender Information Value Date Recorded Sex Assigned at Not on file 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
--- OUTSIDE RECORDS SUMMARY | 2025-04-09 13:04 | XMS_ITS | Encounter Summary ---
Author Organization [facility] Address [address] [facility] [address] Care Team Providers Care Manager Intermediate Name Role Phone Srinivasa Anderson MD Primary Care Provider [phone] Encounter Details Date Type Department Care Team (Latest Contact Info) Description 03/26/[address] 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
--- OUTSIDE RECORDS SUMMARY | 2025-04-09 13:04 | XMS_ITS | Encounter Summary ---
Author Organization [facility] Address [address] [facility] [place] [address] Care Team Providers Care Photography Professor Name Role Phone Srinivasa Anderson MD Primary Care Provider [phone] Encounter Details Date Type Department Care Team (Latest Contact Info) Description 07/25/2006 Outpatient Historical [facility] [place] [place] [address] Srinivasa Anderson MD [address] [place] [address] Other Abnormal Blood Chemistry (Primary Dx); Osteoarth NOS-Unspec; 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 Social History Tobacco Use Types Packs/Day Years Used Date Smoking Tobacco: Never Assessed Sex and Gender Information Value Date Recorded Sex Assigned at Not on file 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
--- OUTSIDE RECORDS SUMMARY | 2025-04-09 13:05 | XMS_ITS | Encounter Summary ---
Author Organization [facility] Address [address] [place] [address] Care Team Providers Care Calliope Player Name Role Phone Srinivasa Anderson MD Primary Care Provider [phone] Encounter Details Date Type Department Care Team (Latest Contact Info) Description 08/16/2005 Outpatient Historical [facility] [place] [place] [address] Srinivasa Anderson MD [address] [place] [address] Other Testicular Hypofunction (Primary Dx) Social History Tobacco Use Types Packs/Day Years Used Date Smoking Tobacco: Never Assessed Sex and Gender Information Value Date Recorded Sex Assigned at Not on file 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
--- OUTSIDE RECORDS SUMMARY | 2025-04-09 13:05 | XMS_ITS | Encounter Summary ---
Author Organization [facility] Address [address] [place] [address] Care Team Providers Care Elevator Operator Freight Name Role Phone Srinivasa Anderson MD Primary Care Provider [phone] Encounter Details Date Type Department Care Team (Latest Contact Info) Description 10/26/2004 Outpatient Historical [facility]- [facility] [place] [address] [place] [address] Zoltan Mahoney MD NO ADDRESS ON FILE Malig amado skin arm (Primary Dx); ACTINIC KERATOSIS; Inflamed seborr keratos; SEBORRHEIC KERATOSIS NOS Social History Tobacco Use Types Packs/Day Years Used Date Smoking Tobacco: Never Assessed Sex and Gender Information Value Date Recorded Sex Assigned at Not on file 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 Gender Identity Not on file Sexual Orientation Not on file documented as of this encounter Plan of Treatment Not on file documented as of this encounter Visit Diagnoses Diagnosis 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
--- OUTSIDE RECORDS SUMMARY | 2025-04-09 13:05 | XMS_ITS | Encounter Summary ---
Author Organization [facility] Address [address] [facility] [address] Care Team Providers Care Brand Protection Manager Name Role Phone Srinivasa Anderson MD Primary Care Provider Encounter Details Date Type Department Care Team (Latest Contact Info) Description 01/17/2005 Outpatient Historical [facility] [place] [address] [place] [address] Juma Eng, DPM [address] [place] [address] BUNION (Primary Dx) Social History Tobacco Use Types Packs/Day Years Used Date Smoking Tobacco: Never Assessed Sex and Gender Information Value Date Recorded Sex Assigned at Not on file 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
--- OUTSIDE RECORDS SUMMARY | 2025-04-09 13:05 | XMS_ITS | Encounter Summary ---
Author Organization [facility] Address [address] [facility] [place] [address] Care Team Providers Care Blanchard Grinder Operator Name Role Phone Srinivasa Anderson MD Primary Care Provider [phone] Encounter Details Date Type Department Care Team (Late st Contact Info) Description 04/17/2007 Outpatient Historical [facility] [place] [place] [address] Srinivasa Anderson MD [address] [place] [address] Social History Tobacco Use Types Packs/Day Years Used Date Smoking Tobacco: Never Assessed Sex and Gender Information Value Date Recorded Sex Assigned at Not on file 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
--- OUTSIDE RECORDS SUMMARY | 2025-04-09 13:05 | XMS_ITS | Encounter Summary ---
Author Organization [facility] Address [address] [place] [address] Care Team Providers Care Shed Workers Supervisor Name Role Phone Srinivasa Anderson MD Primary Care Provider [phone] Encounter Details Date Type Department Care Team (Latest Contact Info) Description 10/24/2001 Outpatient Historical [facility] [place] [place] [address] Mark Lux MD [address] [place] [address] HYPERTENSION NOS (Primary Dx); Pure hypercholesterolem; OSTEOARTHROS NOS-UNSPEC Social History Tobacco Use Types Packs/Day Years Used Date Smoking Tobacco: Never Assessed Sex and Gender Information Value Date Recorded Sex Assigned at Not on file 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
--- OUTSIDE RECORDS SUMMARY | 2025-04-09 13:05 | XMS_ITS ---
Author Organization [facility] Address [address] [place] [address] Phone Care Team Providers Care Renewals Representative Name Role Phone Srinivasa Anderson MD Primary Care Provider [phone] Active Problems Problem Noted Date Diagnosed Date [...]
--- OUTSIDE RECORDS SUMMARY | 2025-04-09 13:05 | XMS_ITS | Encounter Summary ---
Author Organization [facility] Address [address] [place] [address] Care Team Providers Care College Of Education Dean Name Role Phone Srinivasa Anderson MD Primary Care Provider [phone] Encounter Details Date Type Department Care Team (Latest Contact Info) Description 07/18/2004 Outpatient Historical [facility] [place] [address] [facility] [address] [place] [address] Ar Stanton MD NO ADDRESS ON FILE INT HEMORRHOID W/O COMPL (Primary Dx) Social History Tobacco Use Types Packs/Day Years Used Date Smoking Tobacco: Never Assessed Sex and Gender Information Value Date Recorded Sex Assigned at Not on file 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
--- OUTSIDE RECORDS SUMMARY | 2025-04-09 13:05 | XMS_ITS | Encounter Summary ---
Author Organization [facility] Address [address] [place] [address] Care Team Providers Care Brusher Machine Name Role Phone Srinivasa Anderson MD Primary Care Provider [phone] Encounter Details Date Type Department Care Team (Latest Contact Info) Description 02/07/2006 Outpatient Historical [facility] [place] [place] [address] Srinivasa Anderson MD [address] [place] [address] Other Testicular Hypofunction (Primary Dx) Social History Tobacco Use Types Packs/Day Years Used Date Smoking Tobacco: Never Assessed Sex and Gender Information Value Date Recorded Sex Assigned at Not on file 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
--- OUTSIDE RECORDS SUMMARY | 2025-04-09 13:05 | XMS_ITS ---
Author Organization [facility] Address [address] [address] Care Team Providers Care Lamp Shade Sewer Name Role Phone Srinivasa Anderson MD Primary Care Provider [phone] Active Problems Problem Noted Date Diagnosed Date [...]
--- OUTSIDE RECORDS SUMMARY | 2025-04-09 13:05 | XMS_ITS | Encounter Summary ---
Author Organization [facility] Address [address] [place] [address] Care Team Providers Care Bladder Blower Name Role Phone Srinivasa Anderson MD Primary Care Provider [phone] Encounter Details Date Type Department Care Team (Latest Contact Info) Description 11/06/2002 Outpatient 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
--- OUTSIDE RECORDS SUMMARY | 2025-04-09 13:05 | XMS_ITS | Clinical Summary ---
Author Organization [facility] Address [address] [place] [address] Care Team Providers Care Egg Sorter Name Role Phone Srinivasa Anderson MD Primary Care Provider [phone] Allergies No known active allergies Medications SACCHAROMYCES [...] file Legal Sex Male 3:08 AM CAN SOLDERER Gender Identity Not on file Sexual Orientation Not on file Occupation Industry Job Start Date Job End Date Not on file Not on file Not on file Not on file Last Filed Vital Signs Vital Sign Reading Time Taken Comments Blood Pressure 118/84 06/23/2020 11:43 AM CAN SOLDERER Pulse 60 06/23/2020 11:43 AM CAN SOLDERER Temperature 36.4 C (97.6 F) 02/19/2020 3:25 PM CDT Respiratory Rate 16 02/19/2020 3:25 PM CDT Oxygen Saturation 99% 06/23/2020 11:43 AM CAN SOLDERER Inhaled Oxygen Concentration - - Weight 78.5 kg (173 lb) 06/23/2020 11:43 AM CAN SOLDERER Height 191.8 cm (6' 3.5 ) 06/23/2020 11:43 AM CS T Body Mass Index 21.34 06/23/2020 11:43 AM CAN SOLDERER Plan of Treatment Health Maintenance Due Date [...] history exists Medical Devices Implanted Type Area Vp Of Technology Device Identifier Shelf Expiration Date Model / Serial / Lot Lens Io Tecnis 1pc 22.0 [id number] - [id number] Implanted:Qty: 1 on 08/23/2016 by Dominic Peralta MD at [facility] Left: Eye [employer] 10/20/2019 [id number] / [id number] / Lens Io Tecnis 1pc 22.5 [id number] - [id number] Implanted:Qty: 1 on 09/06/2016 by Dominic Peralta MD at [facility] Right: Eye [employer] 12/19/2019 [id number] / [id number] / Procedures Procedure Name Priority Date/Time Associated [...] Reference Range mg/dL 11/09/2019 9:33 PM CDT [facility]JESSICA [facility]TE CREATININE, URINE 139.7 40.0 - 278.0 mg/dL 11/09/2019 9:33 PM CDT [facility] Comment:Reference Range vari es with fluid intake and diet. MICROALBUMIN/ CREAT RATIO, UR 37.9(H) <17.0 mg/g 11/09/2019 9:33 PM CDT [facility]ICA [facility] Urine URINE SPECIMEN OBTAINED BY CLEAN CATCH PROCEDURE / Unknown Collection / Unknown 11/09/2019 9:43 AM CDT 11/09/2019 8:19 PM CDT [facility]ORATORY SERVICES-JESSICA BUR[facility]TE - 11/09/2019 9:33 PM CDT Condition Microalbumin/Creat ratio Normal Males <17 Normal Females <25 Microalbuminuria Males 17-299 Microalbuminuria Females 25-299 Overt proteinuria >=300 us Srinivasa Anderson MD URINE ORDERABLES Final Result [facility] CLIA# [id number] [facility] [place] [address] * (ABNORMAL) HEMOGLOBIN A1C (11/09/2019 9:43 AM CDT) HEMOGLOBIN A1C 6.2(H) See Comment % 11/09/2019 9:37 PM CDT [facility] EST. AVG GLUCOSE, A1C 131 mg/dL 11/09/2019 9:37 PM CDT [facility] Blood Venipuncture / Unknown 11/09/2019 9:43 AM CDT 11/09/2019 8:23 PM CDT Narrative [facility] - 11/09/2019 9:37 PM CDT HGB A1C INTERPRETATION NORMAL: <5.7% PRE-DIABETES: 5.7 - 6.4% DIABETES: 6.5% OR GREATER Falsely low A1C measurements can occur when: 1. Anemia and/or hemolytic anemia is present. 2. Hemoglobin variants present. 3. Renal failure. 4. Transfusion of blood product in the last 120 days. We recommend ordering a fructosamine test([id number]) to more accurately assess glycemic status if any of the above conditions are present. us Srinivasa Anderson MD CHEMISTRY ORDERABLES Final Resul t [facility] CLIA# [id number] [address] [place] [address] * (ABNORMAL) LIPID PANEL (11/09/2019 9:43 AM CDT) [facility] CHOLESTEROL 189 <200 mg/dL 11/09/2019 9:10 PM CDT [facility] TRIGLYCERIDE 102 <150 mg/dL 11/09/2019 9:10 PM T [facility] HDL 47 40 - 59 mg/dL 11/09/2019 9:10 PM T [facility] LDL CALCULATED 122(H) <100 mg/dL 11/09/2019 9:10 PM T [facility] NON-HDL CHOLESTEROL 142(H) <130 mg/dL 11/09/2019 9:10 PM T [facility]UR[facility] Blood Venipuncture / Unknown 11/09/2019 9:43 AM CDT 11/09/2019 8:24 PM CDT [facility] LABORATORY SERVICES-JESSICA BURNETTE - 11/09/2019 9:10 PM [...] Anderson MD CHEMISTRY ORDERABLES Final Resul t [facility]UR[facility]TE [facility]# [id number] [address] [place] [address] * DIABETES EYE EXAM (11/17/2018) us Abstract Spg Provider HEALTH MAINTENANCE Final R esult from Last 3 Months or Most Recently Relevant to Health Maintenance Insurance [address] [place] [id number] MEDICARE PART A AND B [facility] [address] [place] [id number] RX [employer] RX Member Subscriber Plan / Payer (Ef fective 2005-Present) Name:Moiz Hernandez Relation to Subscriber:Self Name:Moiz Hernandez Payer ID:Not on file Group ID:[id number] Type:RX Medicare Part D Address: [place] RX [facility] DATA Medicare Part B Advance Directives For more information, please contact: [phone] Documents on File Type Date Recorded 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
--- OUTSIDE RECORDS SUMMARY | 2025-04-09 13:05 | XMS_ITS | Encounter Summary ---
Author Organization [facility] Address [address] 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
--- OUTSIDE RECORDS SUMMARY | 2025-04-09 13:05 | XMS_ITS | Encounter Summary ---
Author Organization [facility] Address [address] [place] [address] Care Team Providers Care Gas Welder Apprentice Name Role Phone Srinivasa Anderson MD Primary Care Provider [phone] Encounter Details Date Type Department Care Team (Latest Contact Info) Description 10/14/[address] 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
--- OUTSIDE RECORDS SUMMARY | 2025-04-09 13:05 | XMS_ITS | Encounter Summary ---
Author Organization [facility] Address [address] [place] [address] Care Team Providers Care Mica Plate Layer Name Role Phone Srinivasa Anderson MD Primary Care Provider Encounter Details Date Type Department Care Team (Latest Contact Info) Description 11/30/2003 Outpatient Historical [facility] Dermat[facility]- [facility] [place] [address] [place] [id number] Zoltan Mahoney MD NO ADDRESS ON FILE ACTINIC KERATOSIS (Primary Dx); Inflamed seborr keratos; SEBORRHEIC KERATOSIS NOS Social History Tobacco Use Types Packs/Day Years Used Date Smoking Tobacco: Never Assessed Sex and Gender Information Value Date Recorded Sex Assigned at Not on file 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
--- OUTSIDE RECORDS SUMMARY | 2025-04-09 13:05 | XMS_ITS | Encounter Summary ---
Author Organization [facility] Address [address] [place] [address] Care Team Providers Care Senior Warehouse Clerk Name Role Phone Srinivasa Anderson MD Primary Care Provider [phone] Encounter Details Date Type Department Care Team (Latest Contact Info) Description 10/26/2004 Outpatient Historical [facility] [address] [place] [address] 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
--- OUTSIDE RECORDS SUMMARY | 2025-04-09 13:05 | XMS_ITS | Encounter Summary ---
Author Organization [facility] Address [address] [facility] [place] [address] Care Team Providers Care Litigation Claim Representative Name Role Phone Srinivasa Anderson MD Primary Care Provider [phone] Encounter Details Date Type Department Care Team (Latest Contact Info) Description 09/04/2005 Outpatient Historical [facility] [place] [place] [address] Srinivasa Anderson MD [address] [place] [address] Unspecified Essential Hypertension (Primary Dx); Other and Unspecified Hyperlipidemia; Abdominal Pain, Unspecified Site; Depressive Disorder, not Elsewhere Classified Social History Tobacco Use Types Packs/Day Years Used Date Smoking Tobacco: Never Assessed Sex and Gender Information Value Date Recorded Sex Assigned at Not on file 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
--- OUTSIDE RECORDS SUMMARY | 2025-04-09 13:05 | XMS_ITS | Encounter Summary ---
Author Organization [facility] Address [address] [place] [address] Care Team Providers Care Pouncer Machine Name Role Phone Srinivasa Anderson MD Primary Care Provider [phone] Encounter Details Date Type Department Care Team (Latest Contact Info) Description 01/26/2005 Outpatient Historical [facility] [place] [place] [address] Srinivasa Anderson MD [address] [place] [address] ANXIETY STATE NOS (Primary Dx); IMPOTENCE, ORGANIC ORIGN; MALAISE AND FATIGUE NEC; TESTICULAR HYPOFUNC NEC Social History Tobacco Use Types Packs/Day Years Used Date Smoking Tobacco: Never Assessed Sex and Gender Information Value Date Recorded Sex Assigned at Not on file 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
--- OUTSIDE RECORDS SUMMARY | 2025-04-09 13:05 | XMS_ITS | Encounter Summary ---
Author Organization [facility] Address [address] [facility] [place] [address] Care Team Providers Care Mortar Maker Name Role Phone Srinivasa Anderson MD Primary Care Provider Encounter Details Date Type Department Care Team (Latest Contact Info) Description 10/26/2004 Outpatient Historical [facility] [place] [place] [address] Srinivasa Anderson MD [address] [place] [address] TESTICULAR HYPOFUNC NEC (Primary Dx) Social History Tobacco Use Types Packs/Day Years Used Date Smoking Tobacco: Never Assessed Sex and Gender Information Value Date Recorded Sex Assigned at Not on file 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
--- OUTSIDE RECORDS SUMMARY | 2025-04-09 13:05 | XMS_ITS | Encounter Summary ---
Author Organization [facility] Address [address] [facility] [place] [address] Care Team Providers Care Corporate Law Assistant Name Role Phone Srinivasa Anderson MD Primary Care Provider Encounter Details Date Type Department Care Team (Latest Contact Info) Description 11/22/2005 Outpatient Historical [facility] [place] [address] Nati Espinoza MD NO ADDRESS ON FILE Other Testicular Hypofunction (Primary Dx) Social History Tobacco Use Types Packs/Day Years Used Date Smoking Tobacco: Never Assessed Sex and Gender Information Value Date Recorded Sex Assigned at Not on file 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
--- OUTSIDE RECORDS SUMMARY | 2025-04-09 13:05 | XMS_ITS | Encounter Summary ---
Author Organization [facility] Address [address] [facility] [place] [address] Care Team Providers Care Local Driver Name Role Phone Srinivasa Anderson MD Primary Care Provider [phone] Reason for Referral * Outpatient Services (Routine) - Closed Specialty Diagnoses / Procedures Referred By Contac t Referred To Contact Diagnoses Breast swelling Procedures MAMMO DIGITAL DIAG BILAT Srinivasa Anderson MD [address] [place] [address] Phone: tel: fax: Referral ID Status Reason Start Date Expiration Date Visits Re quested Visits Authorized [id number] Closed 04/08/2012 04/08/2013 1 1 IN MAKER HAND Encounter Details Date Type Department Care Team (Late st Contact Info) Description 04/08/2012 Ancillary Orders [facility] [place] [place] [address] Srinivasa Anderson MD [address] [place] [address] Breast swelling Social History Tobacco Use Types Packs/Day Years Used Date Smoking Tobacco: Former Cigarettes 0.5 30 0 04/22/1962 - 04/22/1992 Smokeless Tobacco: Never Alcohol Use Standard Drinks/Week Comments No 0 (1 standard drink = 0.6 oz pur e alcohol) Sex and Gender Information Value Date Recorded Sex Assigned at Not on file Legal Sex Male 3:08 AM VIOLIN MAKER HAND Gender Identity Not on file Sexual Orientation Not on file Occupation Industry Job Start Date Job End Date Not on file Not on file Not on file Not on file documented as of this encounter Plan of Treatment Not on file documented as of this encounter Results * MAMMO DIGITAL DIAG BILAT (04/08/2012 11:03 AM VIOLIN MAKER HAND) Anatomical Region Laterality Modality Breast Bilateral Mammography 04/08/2012 10:0 1 AM VIOLIN MAKER HAND Impressions 04/08/2012 8:55 PM VIOLIN MAKER HAND IMPRESSION: Bilateral diagnostic exam and directed left breast ultrasound was performed today. The mammogram is unremarkable as well as the directed left breast ultrasound. Therefore clinical correlation is recommended regarding the reported symptoms. Patient received the result and recommendation letter. Spencer 1140 AM - uploaded from [employer] - Narrative 04/08/2012 8:55 PM VIOLIN MAKER HAND REASON FOR EXAM: Patient is reporting to [...] by the Computer Aided Detection System (CAD), [employer] ImageChecker, Version 8.3. LEFT BREAST ULTRASOUND: Sonographic [...] by the Computer Aided Detection System (CAD), Clearwave ImageIDYIA Innovationscker, Version 8.3. LEFT BREAST ULTRASOUND: Sonographic evaluation [...] letter. DB/allie 1140 AM - uploaded from [employer] - us Srinivasa Anderson MD MAMMO ORDERABLES Final Result documented in this encounter Visit Diagnoses Diagnosis Breast swelling Lump or mass in breast Breast swelling Lump or mass in breast documented in this encounter Care Teams Local Driver Relationship Specialty Start Date End Date Srinivasa Anderson MD [address] [address] PCP - General 07/18/04 documented as of this encounter
--- OUTSIDE RECORDS SUMMARY | 2025-04-09 13:05 | XMS_ITS | Encounter Summary ---
Author Organization [facility] Address [address] [facility] [facility] [place] [address] Care Team Providers Care Watch Case Polisher Name Role Phone Srinivasa Anderson MD Primary Care Provider [phone] Encounter Details Date Type Department Care Team (Latest Contact Info) Description 02/08/2004 Outpatient Historical [facility] Imaging Services-Nilay Robles [place] [address] [place] [address] Mark Lux MD [address] [place] [address] HEMATURIA (Primary Dx) Social History Tobacco Use Types Packs/Day Years Used Date Smoking Tobacco: Never Assessed Sex and Gender Information Value Date Recorded Sex Assigned at Not on file 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
--- OUTSIDE RECORDS SUMMARY | 2025-04-09 13:05 | XMS_ITS | Encounter Summary ---
Author Organization [facility] Address [address] [place] [facility] [place] [address] Care Team Providers Care Closet Builder Name Role Phone Srinivasa Anderson MD Primary Care Provider [phone] Encounter Details Date Type Department Care Team (Latest Contact Info) Description 01/17/2005 Outpatient Historical [facility] Podiatry-Nilay Robles [place] [address] [place] [address] Juma Eng, DPM [address] [place] [address] GANGLION OF JOINT (Primary Dx); BUNION; EXOSTOSIS, SITE NOS Social History Tobacco Use Types Packs/Day Years Used Date Smoking Tobacco: Never Assessed Sex and Gender Information Value Date Recorded Sex Assigned at Not on file 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
--- OUTSIDE RECORDS SUMMARY | 2025-04-09 13:05 | XMS_ITS | Encounter Summary ---
Author Organization [facility] Address [address] [place] [address] Care Team Providers Care Senior Accounting Associate Name Role Phone Srinivasa Anderson MD Primary Care Provider [phone] Encounter Details Date Type Department Care Team (Latest Contact Info) Description 11/06/2002 Outpatient Historical [facility] Imaging Services-Nilay Robles [place] [address] [place] [address] Mark Lux MD [address] [place] [address] HYPERTENSION NOS (Primary Dx) Social History Tobacco Use Types Packs/Day Years Used Date Smoking Tobacco: Never Assessed Sex and Gender Information Value Date Recorded Sex Assigned at Not on file 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
--- OUTSIDE RECORDS SUMMARY | 2025-04-09 13:05 | XMS_ITS | Encounter Summary ---
Author Organization [facility] Address [address] [place] [address] Care Team Providers Care Railcar Carpenter Name Role Phone Srinivasa Anderson MD Primary Care Provider [phone] Encounter Details Date Type Department Care Team (Latest Contact Info) Description 07/25/2005 Outpatient Historical [facility] [address] 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
--- OUTSIDE RECORDS SUMMARY | 2025-04-09 13:05 | XMS_ITS | Encounter Summary ---
Author Organization [facility] Address [address] [facility] [facility] [address] Care Team Providers Care Reagent Tender Name Role Phone Srinivasa Anderson MD Primary Care Provider [phone] Encounter Details Date Type Department Care Team (Latest Contact Info) Description 08/19/2001 Outpatient Historical [facility] [place] Derm[facility]- [facility] [place] [address] [place] [id number] Zoltan Mahoney MD NO ADDRESS ON FILE Malig amado scalp/skin neck (Primary Dx); SEBORRHEIC KERATOSIS NOS Social History Tobacco Use Types Packs/Day Years Used Date Smoking Tobacco: Never Assessed Sex and Gender Information Value Date Recorded Sex Assigned at Not on file 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
--- OUTSIDE RECORDS SUMMARY | 2025-04-09 13:05 | XMS_ITS | Encounter Summary ---
Author Organization [facility] Address [address] [place] [address] Care Team Providers Care Welder Tool And Die Name Role Phone Srinivasa Anderson MD Primary Care Provider [phone] Encounter Details Date Type Department Care Team (Latest Contact Info) Description 03/25/2003 Outpatient Historical [facility] Dermatology- [facility] [place] [address] [place] [address] Zoltan Mahoney MD NO ADDRESS ON FILE ACTINIC KERATOSIS (Primary Dx); Inflamed seborr keratos; SEBORRHEIC KERATOSIS NOS Social History Tobacco Use Types Packs/Day Years Used Date Smoking Tobacco: Never Assessed Sex and Gender Information Value Date Recorded Sex Assigned at Not on file 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
--- OUTSIDE RECORDS SUMMARY | 2025-04-09 13:05 | XMS_ITS | Encounter Summary ---
Author Organization [facility] Address [address] [place] [address] Care Team Providers Care Charge Coordinator Name Role Phone Srinivasa Anderson MD Primary Care Provider [phone] Encounter Details Date Type Department Care Team (Latest Contact Info) Description 03/04/2003 Outpatient Historical [facility] Int [facility] [place] [place] [address] Mark Lux MD [address] [place] [address] ABDOMINAL PAIN UNSPEC SITE (Primary Dx); LUMBAGO; ANXIETY STATE NOS Social History Tobacco Use Types Packs/Day Years Used Date Smoking Tobacco: Never Assessed Sex and Gender Information Value Date Recorded Sex Assigned at Not on file 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
--- OUTSIDE RECORDS SUMMARY | 2025-04-09 13:05 | XMS_ITS | Encounter Summary ---
Author Organization [facility] Address [address] [place] [address] Care Team Providers Care Water Safety Teacher Name Role Phone Srinivasa nAderson MD Primary Care Provider [phone] Encounter Details Date Type Department Care Team (Latest Contact Info) Description 11/10/2003 Outpatient Historical [facility] Imaging Services-[facility] [place] [address] [place] [address] Mark Lux MD [address] [place] [address] HYPERTENSION NOS (Primary Dx) Social History Tobacco Use Types Packs/Day Years Used Date Smoking Tobacco: Never Assessed Sex and Gender Information Value Date Recorded Sex Assigned at Not on file 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
--- OUTSIDE RECORDS SUMMARY | 2025-04-09 13:05 | XMS_ITS | Encounter Summary ---
Author Organization [facility] Address [address] [place] [address] Care Team Providers Care Principal Programmer Name Role Phone Srinivasa Anderson MD Primary Care Provider [phone] Encounter Details Date Type Department Care Team (Latest Contact Info) Description 03/10/2007 Outpatient Historical [facility] Imaging Services [address] 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
--- OUTSIDE RECORDS SUMMARY | 2025-04-09 13:05 | XMS_ITS | Encounter Summary ---
Author Organization [facility] Address [address] [facility] [place] [address] Care Team Providers Care Fagoting Machine Operator Name Role Phone Srinivasa Anderson MD Primary Care Provider [phone] Encounter Details Date Type Department Care Team (Latest Contact Info) Description 04/05/2003 Outpatient Historical [facility] Imaging Services-[facility] [place] [address] [place] [address] Mark Lux MD [address] [place] [address] ABDOMINAL PAIN EPIGASTRIC (Primary Dx) Social History Tobacco Use Types Packs/Day Years Used Date Smoking Tobacco: Never Assessed Sex and Gender Information Value Date Recorded Sex Assigned at Not on file 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
--- OUTSIDE RECORDS SUMMARY | 2025-04-09 13:05 | XMS_ITS | Encounter Summary ---
Author Organization [facility] Address [address] [place] [facility] [place] [address] Care Team Providers Care Case Finisher Name Role Phone Srinivasa Anderson MD Primary Care Provider [phone] Encounter Details Date Type Department Care Team (Latest Contact Info) Description 04/25/2004 Outpatient Historical [facility] [place] [place] [address] Srinivasa Anderson MD [address] [place] [address] PULM EMBOLISM/INFARCT NOS (CMS/HCC) (Primary Dx); HYPERTENSION NOS Social History Tobacco Use Types Packs/Day Years Used Date Smoking Tobacco: Never Assessed Sex and Gender Information Value Date Recorded Sex Assigned at Not on file Legal Sex Male 3:[address] Gender Identity Not on file Sexual Orientation Not on file documented as of this encounter Plan of Treatment Not on file documented as of this encounter Visit Diagnoses Diagnosis 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
--- OUTSIDE RECORDS SUMMARY | 2025-04-09 13:05 | XMS_ITS | Encounter Summary ---
Author Organization [facility] Address [address] [place] [address] Care Team Providers Care Rn On Site Name Role Phone Srinivasa Anderson MD Primary Care Provider [phone] Encounter Details Date Type Department Care Team (Latest Contact Info) Description 08/30/2003 Outpatient Historical [facility] Int 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
--- OUTSIDE RECORDS SUMMARY | 2025-04-09 13:05 | XMS_ITS | Encounter Summary ---
Author Organization [facility] Address [address] [facility] [place] [address] Care Team Providers Care Bookkeeper Receptionist Name Role Phone Srinivasa Anderson MD Primary Care Provider [phone] Encounter Details Date Type Department Care Team (Latest Contact Info) Description 10/19/2005 Outpatient Historical [facility] [place] [place] [address] Srinivasa Anderson MD [address] [place] [address] Other Testicular Hypofunction (Primary Dx) Social History Tobacco Use Types Packs/Day Years Used Date Smoking Tobacco: Never Assessed Sex and Gender Information Value Date Recorded Sex Assigned at Not on file 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
--- OUTSIDE RECORDS SUMMARY | 2025-04-09 13:05 | XMS_ITS | Encounter Summary ---
Author Organization [facility] Address [address] [facility] [place] [address] Care Team Providers Care Director Ambulatory Name Role Phone Srinivasa Anderson MD Primary Care Provider [phone] Encounter Details Date Type Department Care Team (Late st Contact Info) Description 03/30/2004 Outpatient Historical [facility] Urology- [place] 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
--- OUTSIDE RECORDS SUMMARY | 2025-04-09 13:05 | XMS_ITS | Encounter Summary ---
Author Organization [facility] Address [address] [facility] [place] [address] Care Team Providers Care Decaler Name Role Phone Srinivasa Anderson MD Primary Care Provider [phone] Encounter Details Date Type Department Care Team (Latest Contact Info) Description 11/24/2004 Outpatient Historical [facility] [place] [place] [address] Srinivasa Anderson MD [address] [place] [address] TESTICULAR HYPOFUNC NEC (Primary Dx) Social History Tobacco Use Types Packs/Day Years Used Date Smoking Tobacco: Never Assessed Sex and Gender Information Value Date Recorded Sex Assigned at Not on file 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
--- OUTSIDE RECORDS SUMMARY | 2025-04-09 13:05 | XMS_ITS | Encounter Summary ---
Author Organization [facility] Address [address] [place] [address] Care Team Providers Care Pie Crimping Machine Operator Name Role Phone Srinivasa Anderson MD Primary Care Provider [phone] Encounter Details Date Type Department Care Team (Latest Contact Info) Description 02/08/2004 Outpatient Historical 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
--- OUTSIDE RECORDS SUMMARY | 2025-04-09 13:05 | XMS_ITS | Encounter Summary ---
Author Organization [facility] Address [address] [facility] [place] [address] Care Team Providers Care Drop Hammer Mechanic Name Role Phone Srinivasa Anderson MD Primary Care Provider [phone] Encounter Details Date Type Department Care Team (Latest Contact Info) Description 12/27/2004 Outpatient Historical [facility] [place] [place] [address] Srinivasa Anderson MD [address] [place] [address] TESTICULAR HYPOFUNC NEC (Primary Dx) Social History Tobacco Use Types Packs/Day Years Used Date Smoking Tobacco: Never Assessed Sex and Gender Information Value Date Recorded Sex Assigned at Not on file 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
--- OUTSIDE RECORDS SUMMARY | 2025-04-09 13:05 | XMS_ITS | Encounter Summary ---
Author Organization [facility] Address [address] [place] [address] Care Team Providers Care Heel Top Lift Splitter Name Role Phone Srinivasa Anderson MD Primary Care Provider [phone] Encounter Details Date Type Department Care Team (Late st Contact Info) Description 02/17/2025 Lab Requisition [facility] Services [address] [place] [address] Fran Mancilla, SOCIAL MEDIA SR STRATEGY MANAGER [address] [facility] [address] [place] [phone] Shortness of breath Social History Tobacco Use [...] on file Legal Sex Male 6:28 AM PARACHUTIST/COMBATANT DIVER QUALIFIED Gender Identity Not on file Sexual Orientation Not on file documented as of this encounter Plan of Treatment Upcoming Encounters Date Type Department Care Team (Late st Contact Info) Description 06/29/2025 8:00 AM CDT Procedure visit [facility] [address] [place] [address] Mariela Stone MD [address] [place] [phone] 07/08/2025 1:00 PM CDT Office Visit [facility] [address] [place] [phone] Kodak Samuel MD [address] [place] [phone] 03/28/2026 11:00 AM PARACHUTIST/COMBATANT DIVER QUALIFIED Office Visit [facility] [address] [place] [phone] Dominic Haskins CRNP [address], [address] [place] [phone] Mariela Stone MD [address] [place] [phone] Mayra Mohr NP [address], [address] [place] [phone] documented as of this encounter Procedures Procedure [...] 136 - 145 mmol/L 02/17/2025 4:47 PM T [facility] POTASSIUM 4.8 3.5 - 5.1 mmol/L 02/17/2025 4:47 PM [facility] CHLORIDE 108(H) 98 - 107 mmol/L 02/17/2025 4:47 PM [facility] CO2 24 22 - 29 mmol/L 02/17/2025 4:47 PM [facility] CALCIUM 9.0 8.8 - 10.2 mg/dL 02/17/2025 4:47 PM [facility] BUN 60(H) 8 - 23 mg/dL 02/17/2025 4:47 PM [facility] CREATININE 1.76(H) 0.67 - 1.17 mg/dL 02/17/2025 4:47 PM [facility] Comment:The GFR result is no t clinically significant on patients <18 or >70 years of age. GLUCOSE 144(H) 74 - 99 mg/dL 02/17/2025 4:47 PM [facility] TOTAL PROTEIN 7.5 6.4 - 8.3 g/dL 02/17/2025 4:47 PM [facility] ALBUMIN 3.9 3.5 - 5.2 g/dL 02/17/2025 4:47 PM [facility] BILIRUBIN TOTAL 0.8 0.0 - 1.0 mg/dL 02/17/2025 4:47 PM [facility] ALKALINE PHOSPHATASE 104 40 - 129 U/L 02/17/2025 4:47 PM [facility] AST 35 10 - 50 U/L 02/17/2025 4:47 PM [facility] ALT 51(H) <=50 U/L 02/17/2025 4:47 PM CDT [facility] GFR 37 mL/min/1. 73 sq meter 02/17/2025 4:47 PM CDT [facility] Comment:eGFR calculated with 2020 CKD-EPI equation. Vegetarian diet, extremely high or low muscle mass, and may affect results. Cystatin C with Glomerular Filtration Rate is a suitable alternative for these patients. ANION GAP 12 9 - 20 mmol/L 02/17/2025 4:47 PM CDT [facility] Blood Collection / Unknown 02/17/2025 2:37 PM CDT 02/17/2025 4:03 PM CDT us Fran Mancilla NP CHEMISTRY ORDERABLES Final Resu lt [facility] CLIA # [id number] [address] [place] [address] * (ABNORMAL) CBC WITH DIFFERENTIAL (02/17/2025 2:37 PM CDT) Pathologist [facility] WBC 9.4 4.8 - 10.8 K/uL 02/17/2025 4:20 PM CDT [facility] RBC 3.77(L) 4.60 - 6.20 M/uL 02/17/2025 4:20 PM CDT [facility] HEMOGLOBIN 10.6(L) 14.0 - 18.0 g/dL 02/17/2025 4:20 PM CDT [facility] HEMATOCRIT 34.7(L) 41.0 - 53.0 % 02/17/2025 4:20 PM CDT [facility] MCV 92.0 84.0 - 103.0 fL 02/17/2025 4:20 PM CDT [facility] MCH 28.1 27.0 - 34.0 pg 02/17/2025 4:20 PM CDT [facility] MCHC 30.5 30.0 - 35.0 g/dL 02/17/2025 4:20 PM [facility] PLATELETS 137(L) 140 - 440 K/uL 02/17/2025 4:20 PM [facility] MPV 12.3 8.9 - 12.8 fL 02/17/2025 4:20 PM [facility] RDW 19.1(H) 11.0 - 14.5 % 02/17/2025 4:20 PM [facility] RDW-STDEV 63.8(H) 37.0 - 54.0 fL 02/17/2025 4:20 PM [facility] NEUTROPHILS 83(H) 42 - 75 % 02/17/2025 4:20 PM [facility] LYMPHOCYTES 8(L) 24 - 44 % 02/17/2025 4:20 PM [facility] MONOCYTES 7 2 - 10 % 02/17/2025 4:20 PM [facility] EOSINOPHILS 0 0 - 7 % 02/17/2025 4:20 PM [facility] BASOPHILS 0 0 - 1 % 02/17/2025 4:20 PM [facility] IMMATURE GRANULOCYTES 2 0 - 2 % 02/17/2025 4:20 PM [facility] NEUTROPHIL ABSOLUTE 7.73 2.00 - 8.00 K/uL 02/17/2025 4:20 PM [facility] LYMPHOCYTE ABSOLUTE 0.75(L) 1.20 - 4.00 K/uL 02/17/2025 4:20 PM [facility] MONOCYTE ABSOLUTE 0.67(H) 0.10 - 0.60 K/uL 02/17/2025 4:20 PM [facility] EOSINOPHIL ABSOLUTE 0.01 0.00 - 0.70 K/uL 02/17/2025 4:20 PM [facility] BASOPHILS ABSOLUTE 0.02 0.00 - 0.20 K/uL 02/17/2025 4:20 PM [facility] IMMATURE GRANULOCYTES ABSOLUTE 0.19(H) 0.00 - 0.10 K/uL 02/17/2025 4:20 PM CDT [facility] SMEAR REVIEWED: NA - Not Applicable 02/17/2025 4:20 PM CDT [facility] Blood Collection / Unknown 02/17/2025 2:37 PM CDT 02/17/2025 4:03 PM CDT us Fran Mancilla NP HEMATOLOGY ORDERABLES Final Res ult Performing Organization Address [facility] Co de Phone Number [facility] CLIA # [id number] [address] [place] [address] * (ABNORMAL) BRAIN NATRIURETIC PEPTIDE, BNP OR PROBNP (02/17/2025 2:37 PM CDT) PROBNP, N TERMINAL 5,161(H) 0 - 450 pg/mL 02/17/2025 4:44 PM CDT [facility] Comment: INTERPRETIVE COMMENT based on diagnosis: [...] ORDERABLES Final Resu lt Performing Organization Address [facility]/ZIP Co de Phone Number [facility] CLIA # [id number] [address] [place] [address] documented in this encounter Visit Diagnoses Diagnosis Shortness of breath documented in this encounter Care Teams Heel Top Lift Splitter Relationship Specialty Start Date End Date Srinivasa Anderson MD [address] [address] PCP - General Family Practice 05/18/24 documented as of this encounter
--- OUTSIDE RECORDS SUMMARY | 2025-04-09 13:05 | XMS_ITS | Encounter Summary ---
Author Organization [facility] Address [address] [facility] [place] [address] Care Team Providers Care Sexton Helper Name Role Phone Srinivasa Anderson MD Primary Care Provider [phone] Encounter Details Date Type Department Care Team (Latest Contact Info) Description 01/18/2006 Outpatient Historical [facility] [place] [address] [place] [address] Srinivasa Anderson MD [address] [place] [address] Other Testicular Hypofunction (Primary Dx) Social History Tobacco Use Types Packs/Day Years Used Date Smoking Tobacco: Never Assessed Sex and Gender Information Value Date Recorded Sex Assigned at Not on file 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
--- OUTSIDE RECORDS SUMMARY | 2025-04-09 13:05 | XMS_ITS | Encounter Summary ---
Author Organization [facility] Address [address] [place] [address] Care Team Providers Care Net Development Manager Name Role Phone Srinivasa Anderson MD Primary Care Provider Encounter Details Date Type Department Care Team (Latest Contact Info) Description 07/25/2005 Outpatient Historical [facility] Dermatology- [facility] [place] [address] [place] [address] Zoltan Mahoney MD NO ADDRESS ON FILE Malig John Skin Arm (Primary Dx); Other Seborrheic Keratosis Social History Tobacco Use Types Packs/Day Years Used Date Smoking Tobacco: Never Assessed Sex and Gender Information Value Date Recorded Sex Assigned at Not on file Legal Sex Male 3:08 AM DIRECTOR TRANSLATION Gender Identity Not on file Sexual Orientation Not on file documented as of this encounter Plan of Treatment Not on file documented as of this encounter Visit Diagnoses Diagnosis Malig john skin arm- 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
--- OUTSIDE RECORDS SUMMARY | 2025-04-09 13:05 | XMS_ITS | Encounter Summary ---
Author Organization [facility] Address [address] [place] [address] Care Team Providers Care E Commerce Project Manager Name Role Phone Srinivasa Anderson MD Primary Care Provider [phone] Encounter Details Date Type Department Care Team (Latest Contact Info) Description 10/10/2005 Outpatient Historical [facility] [place] [address] 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
--- OUTSIDE RECORDS SUMMARY | 2025-04-09 13:05 | XMS_ITS | Encounter Summary ---
Author Organization [facility] Address [address] [place] [address] Care Team Providers Care Stylist Assistant Name Role Phone Srinivasa Anderson MD Primary Care Provider [phone] Encounter Details Date Type Department Care Team (Latest Contact Info) Description 02/17/2004 Outpatient Historical [facility] Imaging Services-[place] [address] [place] [address] Mark Lux MD [address] [place] [address] ABNORMAL FINDINGS- ORGANS (Primary Dx) Social History Tobacco Use Types Packs/Day Years Used Date Smoking Tobacco: Never Assessed Sex and Gender Information Value Date Recorded Sex Assigned at Not on file 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
--- OUTSIDE RECORDS SUMMARY | 2025-04-09 13:05 | XMS_ITS | Encounter Summary ---
Author Organization [facility] Address [address] [place] [address] Care Team Providers Care Scrap Shear Operator Name Role Phone Srinivasa Anderson MD Primary Care Provider [phone] Encounter Details Date Type Department Care Team (Late st Contact Info) Description 05/15/2007 Outpatient [facility] [place] [address] [place] [address] Srinivasa Anderson MD [address] [place] [address] Social History Tobacco Use Types Packs/Day Years Used Date Smoking Tobacco: Never Assessed Sex and Gender Information Value Date Recorded Sex Assigned at Not on file 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
--- OUTSIDE RECORDS SUMMARY | 2025-04-09 13:05 | XMS_ITS | Encounter Summary ---
Author Organization [facility] Address [address] [place] [address] Care Team Providers Care Rider Ticket Worker Name Role Phone Srinivasa Anderson MD Primary Care Provider [phone] Encounter Details Date Type Department Care Team (Latest Contact Info) Description 07/18/2004 Outpatient [facility] Gastroenterology- [place] [address] [place] [address] Ar Stanton MD NO ADDRESS ON FILE FOLLOW-UP EXAM NOS (Primary Dx); PERS HX COLONIC POLYPS; Diverticulosis of colon; INT HEMORRHOID W/O COMPL Social History Tobacco Use Types Packs/Day Years Used Date Smoking Tobacco: Never Assessed Sex and Gender Information Value Date Recorded Sex Assigned at Not on file 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 Gender Identity Not on file Sexual Orientation Not on file documented as of this encounter Plan of Treatment Not on file documented as of this encounter Visit Diagnoses Diagnosis Unspecified follow-up examination- Primary Personal history of colonic polyps Diverticulosis of colon Diverticulosis of colon (without mention of hemorrhage) Internal hemorrhoids without mention of complication documented in this encounter Care Teams Rider Ticket Worker Relationship Specialty Start Date End Date Srinivasa Anderson MD [address] [place] [phone] PCP - General 07/18/04 documented as of this encounter
--- OUTSIDE RECORDS SUMMARY | 2025-04-09 13:05 | XMS_ITS | Encounter Summary ---
Author Organization [facility] Address [address] [facility] [place] [address] Care Team Providers Care Fruit Coordinator Name Role Phone Srinivasa Anderson MD Primary Care Provider [phone] Encounter Details Date Type Department Care Team (Latest Contact Info) Description 02/15/2004 Outpatient Historical [facility] Imaging Services-[place] [address] [place] [address] Mark Lux MD [address] [place] [phone] HEMATURIA (Primary Dx) Social History Tobacco Use Types Packs/Day Years Used Date Smoking Tobacco: Never Assessed Sex and Gender Information Value Date Recorded Sex Assigned at Not on file 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
--- OUTSIDE RECORDS SUMMARY | 2025-04-09 13:05 | XMS_ITS | Encounter Summary ---
Author Organization [facility] Address [address] [place] [address] Care Team Providers Care Brass Plater Name Role Phone Srinivasa Anderson MD Primary Care Provider [phone] Encounter Details Date Type Department Care Team (Latest Contact Info) Description 10/10/2005 Outpatient Historical [facility] Dermatology- [facility] [place] [address] [place] [phone] Zoltan Mahoney MD NO ADDRESS ON FILE Malig John Skin Ear (Primary Dx); Malig John Skin Arm Social History Tobacco Use Types Packs/Day Years Used Date Smoking Tobacco: Never Assessed Sex and Gender Information Value Date Recorded Sex Assigned at Not on file 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
--- OUTSIDE RECORDS SUMMARY | 2025-04-09 13:05 | XMS_ITS | Clinical Summary ---
Author Organization [facility] Address [address] [place] [address] Phone Care Team Providers Care Music Supervisor Name Role Phone Srinivasa Anderson MD Primary Care Provider [phone] Allergies No known active allergies Medications Syringe with Needle, Disp, (BD Luer-Adi Syringe) 3 mL 25 x 5/8 Syringe Inject 1ml every 30 days 50 Each 0 03/16/20 Active Additional Information Patient not taking.Reported on 03/26/2025 acetaminophen (TYLENOL) 500 mg tablet Take 500 mg by mouth every 6 hours as needed. 10/15/19 20 Active blood sugar diagnostic (Contour Next Test Strips) Strip CHECK BLOOD SUGAR 2 TIMES DAILY DIRECTED DXE11.9 100 Strip 12 04/26/19 21 Active polyethylene glycol 3350 (MIRALAX) 17 gram/dose PowderIndication s:Constipation, unspecified constipation type Take 1 Scoop (17 Grams) by mouth 2 times daily. Dissolve in 8 ounces of fluid and drink entire liquid 510 Gram 1 10/23/19 24 Active Additional Information Patient not taking.Reported on 03/26/2025 amoxicillin-clav ulanate (AUGMENTIN) 875-125 mg tablet Take 1 Tablet by mouth 2 times daily. 09/05/19 25 Active tamsulosin (FLOMAX) 0.4 mg capsule TAKE ONE CAPSULE BY MOUTH DAILY 90 Capsule 1 01/15/20 Active furosemide (LASIX) 40 mg tablet Take 40 mg by mouth 2 times daily. Active metOLazone (ZAROXOLYN) 2.5 mg tablet Take 1 Tablet (2.5 mg) by mouth daily. 10 Tablet 02/24/2025 4:44 PM GLUTEN SETTLING TENDER 02/25/20 Active Additional Information Patient not taking.Reported on 03/26/2025 losartan (COZAAR) 25 mg tabletIndication s:HTN (hypertension), benign Take 1 Tablet (25 mg) by mouth daily. 30 Tablet 03/05/20 Active predniSONE (DELTASONE) 20 mg tabletIndication s:Rash 2 tablets daily for 7 days and then switch to taking 1 tablet daily for 7 days. 21 Tablet 03/05/20 Active ferrous sulfate 325 mg (65 mg iron) tablet Take 1 Tablet (325 mg) by mouth every other day. Take with vitamin C 250 mg 45 Tablet 1 03/10/20 Active ascorbic acid (VITAMIN C) 500 mg Tablet, Chewable Take 500 mg by mouth. Active Dupixent Pen 300 mg/2 mL Pen Injector Inject 600 mg by subcutaneous injection one time only. 03/22/20 Active doxycycline hyclate (VIBRAMYCIN) 100 mg capsuleIndicatio ns:Tick bite, unspecified site, initial encounter Take 1 Capsule (100 mg) by mouth 2 times daily for 10 days. 20 Capsule 03/05/20 25 025 potassium CHLORIDE (KLOR-CON) 10 mEq Extended Release tablet Take 1 Tablet (10 mEq) by mouth daily with breakfast for 2 days. 2 Tablet 03/08/20 025 Active Problems Problem Noted Date Diagnosed [...] Encounters Date Type Department Care Team Description 03/29/2025 Results Follow-Up [place] [address] [place] [address] Mariela Stone MD PACER PROGRAM/EVAL SINGLE LEAD 03/26/2025 11:45 AM GLUTEN SETTLING TENDER Procedure visit [facility] [address] [place] [address] Mariela Stone MD Complete heart block (CMS/HCC) (Primary Dx); Persistent atrial fibrillation (CMS/HCC) 03/26/2025 11:40 AM GLUTEN SETTLING TENDER Office Visit [facility] [address] [place] [address] JozefDominic sanabria CRNP Parvathaneni, Sunthosh, MD Complete heart block (CMS/HCC) (Primary Dx); 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; Persistent atrial fibrillation (CMS/HCC); Presence of Watchman left atrial appendage closure device; Chronic diastolic congestive heart failure (CMS/HCC) 03/19/2025 Refill [facility] Travis Addison-Mohit [address] [place] [address] Srinivasa Anderson MD 03/19/2025 Orders Only [facility] [address] [facility] [address] [place] [address] Dominic Haskins CRNP Benign hypertension (Primary Dx) 03/11/2025 Results Follow-Up [facility] Addison-[place] [address] [facility] [address] [place] [address] Fran Mancilla, MATERIAL REQUIREMENTS PLANNING MANAGER TICK-BORNE DISEASE AB PANEL W/REFLEX 03/10/2025 11:00 AM GLUTEN SETTLING TENDER Telephone Check Up [facility] [place] [address] [place] [address] Elvia Espinosa FNP 03/08/2025 Results Follow-Up [facility] Travis Addison-[place] [address] [facility] [address] [place] [address] Fran Mancilla, MATERIAL REQUIREMENTS PLANNING MANAGER BRAIN NATRIURETIC PEPTIDE, BNP OR PROBNP, BASIC METABOLIC PANEL, BASIC METABOLIC PANEL 03/05/2025 11:45 AM GLUTEN SETTLING TENDER Office Visit [facility] [place] Addison-[place]it [address] [facility] [address] [place] [address] Fran Mancilla, MATERIAL REQUIREMENTS PLANNING MANAGER Tick bite, unspecified site, initial encounter (Primary Dx); Rash; HTN (hypertension), benign 03/05/2025 Lab Requisition [facility] Laboratory Services [address] [place] [address] Fran Mancilla, MATERIAL REQUIREMENTS PLANNING MANAGER Essential (primary) hypertension 03/04/2025 Telephone [facility] [employer] [facility] Marek-Mohit [address] [place] [address] Srinivasa Anderson MD Needs Orders Written 03/04/2025 Orders Only [facility] [place] [address] [place] [address] Elvia Espinosa FNP Iron deficiency anemia due to chronic blood loss (Primary Dx) 03/02/2025 Orders Only [facility] [place] [address] [place] [address] Elvia Espinosa FNP Iron deficiency anemia due to chronic blood loss (Primary Dx); Anemia of chronic renal failure, unspecified CKD stage 03/02/2025 Orders Only [facility] [address] [place] [address] [address] [place] [address] Elvia Espinosa FNP Iron deficiency anemia due to chronic blood loss (Primary Dx); Anemia of chronic renal failure, unspecified CKD stage; Anemia, chronic disease 03/02/2025 Orders Only [facility] Health Information Management [place] [address] [place] [address] Provider, Abstract 03/02/2025 Abstract [facility] [employer] [facility] Marek-Mohit [address] [facility] [address] [place] [address] Srinivasa Anderson MD 02/26/2025 Telephone [facility] [employer] [facility] Addison-[place] [address] [facility] [address] [place] [address] Srinivasa Anderson MD Follow Up 02/26/2025 Orders Only [facility] [employer] [facility] Addison-Mohit [address] [place] [address] Srinivasa Anderson MD 02/24/2025 3:00 PM GLUTEN SETTLING TENDER Office Visit [facility] [employer] [facility] [place] Marek-Mohit [address] [place] [phone] Srinivasa Anderson MD 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) (Primary Dx); Rheumatoid arthritis of multiple sites with negative rheumatoid factor ([facility]/HCC); Rash; Lupus erythematosus overlap syndrome ([facility]/HCC); Pulmonary emphysema ([facility]/HCC); Need for influenza vaccination 02/24/2025 8:15 AM GLUTEN SETTLING TENDER - 02/24/2025 11:59 PM GLUTEN SETTLING TENDER Hospital Encounter [facility] Laboratory Services [address] [place] [phone] Oliver Andino MD Discharge Disposition: Home or Self Care 02/24/2025 Orders Only [facility] [address] [place] [phone] Oliver Andino MD Thrombocytopenia 02/23/2025 Orders Only [facility] [place] [address] [place], [place] [address] Ave [address] [place] [phone] Oliver Andino MD Thrombocytopenia (Primary Dx) 02/22/2025 Orders Only [facility] HIM [address] [place] [phone] Provider, Abstract 02/18/2025 Telephone [facility] [place] Addison-[place] [address] [place] [address] Srinivasa Anderson MD Needs Orders Written; Results 02/18/2025 Telephone [facility] [place] Addison-Mohit [address] [place] [phone] Srinivasa Anderson MD Remote Monitoring 02/18/2025 Results Follow-Up [facility] [place] Addison-[place] [address] [place] [phone] Fran Mancilla, MATERIAL REQUIREMENTS PLANNING MANAGER XR CHEST PA AND LATERAL 2 VW 02/18/2025 Results Follow-Up [facility] [place] Luis-Nilay [place] Addison-[place] [address] [place] [address] Fran Mancilla, MATERIAL REQUIREMENTS PLANNING MANAGER BRAIN NATRIURETIC PEPTIDE, BNP OR PROBNP, CBC WITH DIFFERENTIAL, COMPREHENSIVE METABOLIC PANEL 02/17/2025 2:20 PM CDT - 02/17/2025 11:59 PM CDT Hospital Encounter [facility] [place] Travis Addison [address] [place] [address] Fran Mancilla, MATERIAL REQUIREMENTS PLANNING MANAGER Discharge Disposition: Home or Self Care 02/17/2025 2:00 PM CDT Office Visit [facility] [place] Robles Add[place] [address] [place] [address] Fran Mancilla, MATERIAL REQUIREMENTS PLANNING MANAGER Shortness of breath (Primary Dx); Rash; Positive ELINOR (antinuclear antibody) 02/17/2025 Lab Requisition [facility] Laboratory Services [address] [place] [address] [address] [place] [phone] Fran Mancilla, MATERIAL REQUIREMENTS PLANNING MANAGER Shortness of breath 02/11/2025 Refill [facility] [place]les Addison-[place] [address] [place] [address] Srinivasa Anderson MD 02/09/2025 Orders Only [facility] [place] LuisNilay Robles Addison[place] [address] [place] [address] Srinivasa Anderson MD Anemia, unspecified type (Primary Dx); Hypocalcemia 02/09/2025 Telephone [facility] [place] Robles Addison-Moh[place] [address] [place] [address] Srinivasa Anderson MD Results 02/05/2025 Nurse Triage [facility] [place] Luis[place] Robles Add[place] [address] [place] [address] Srinivasa Anderson MD 02/04/2025 Telephone [facility] [place]-Moh[place] [address] [place] [address] Srinivasa Anderson MD Patient Communication 02/04/2025 Results Follow-Up [facility] [place] Luis[place] [address] [place] [address] Fran Mancilla, MATERIAL REQUIREMENTS PLANNING MANAGER C-REACTIVE PROTEIN, CBC WITH DIFFERENTIAL, COMPREHENSIVE METABOLIC PANEL, Additional followed-up results: 4 02/03/2025 2:45 PM CDT Office Visit [facility] Juan LuisNilay Robles [facility] [address] [facility] [address] [place] [address] Fran Mancilla, MATERIAL REQUIREMENTS PLANNING MANAGER Rash (Primary Dx); Type 2 diabetes mellitus without complication, without long-term current use of insulin ([facility]); Stage 3b chronic kidney disease ([facility]) 01/26/2025 External Device Data STL ABSTRACTION Provider, Abstract 01/23/2025 Refill [facility] [place] [facility] [address] [facility] [address] [place] [address] Srinivasa Anderson MD 01/14/2025 Refill [facility] [place] Addison-Moh[place] [address] [facility] [address] [place] [address] Srinivasa Anderson MD from Last 3 Months [...] VIRUS, (65 YR UP), 0.5ML (PF), IM 02/24/2025,02/03/2024 INFLUENZA VACCINE QUADRIVALE NT ADJ 67 YR [...] on file Legal Sex Male 6:28 AM GLUTEN SETTLING TENDER Gender Identity Not on file Sexual Orientation Not on file Last Filed Vital Signs Vital Sign Reading Time Taken Comments Blood Pressure 126/62 03/26/2025 11:05 AM GLUTEN SETTLING TENDER Pulse 61 03/26/2025 11:05 AM GLUTEN SETTLING TENDER Temperature 36.5 C (97.7 F) 03/05/2025 10:47 AM GLUTEN SETTLING TENDER Respiratory Rate 18 02/24/2025 2:45 PM GLUTEN SETTLING TENDER Oxygen Saturation 95% 03/05/2025 10:47 AM GLUTEN SETTLING TENDER Inhaled Oxygen Concentration - - Weight 84.1 kg (185 lb 6.4 oz) 03/26/2025 11:05 AM GLUTEN SETTLING TENDER Height 193 cm (6' 4 ) 03/26/2025 11:05 AM GLUTEN SETTLING TENDER Body Mass Index 22.57 03/26/2025 11:05 AM GLUTEN SETTLING TENDER Plan of Treatment Upcoming Encounters Date Type Department Care Team (Late st Contact Info) Description 06/29/2025 8:00 AM CDT Procedure visit [facility] [address] [place] [phone] Mariela Stone MD [address] [place] [address] 07/08/2025 1:00 PM CDT Office Visit [facility] [address] [place] [phone] Kodak Samuel MD [address] [place] [phone] 03/28/2026 11:00 AM GLUTEN SETTLING TENDER Office Visit [facility] [address] [place] [phone] Dominic Haskins CRNP [address], [address] [place] [phone] Mariela Stone MD [address] [place] [phone] Mayra Mohr NP [address] [facility] [address] [place] [address] Health Maintenance Due Date Last [...] (ACO) A nnual Wellness Visit 06/13/2024 06/12/2023 COVID-19 Vaccine (3 - 2024-2 6 season) [...] 0 01/12/2020, 01/12/2020, 06/03/2014, Additional history exists INFLUENZA VACCINE Completed 02/24/2025, , 03/25/2023, Additional history exists Medical Devices Implanted Type Area Cartography Technician Device Identifier Shelf Expiration Date Model / Serial / Lot Dev Naomi Closure 35mm Watchman Flx [id number] - [id number] Implanted:Qty : 1 on 08/13/2022 at [facility] Cardiovascular Device N/A: Heart [employer] 10/25/2023 [id number] 350 / [id number] / [id number] Mitraclip G4 Dlvry Sys Ntw No Chrg [id number] - [id number] Implanted:Qty : 1 on 02/18/2023 at [facility] Cardiovascular Device Right: Heart [employer] 08/22/2023 [id number] / [id number] / [id number] Closure Perclose Prostyle Sut Mediate 52511-34 - [id number] Implanted:Qty : 1 on 08/13/2022 by Jaden Vital MD at [facility] Closure Device Right: Groin [employer] VASC DEV[employer] 04/21/2024 01725-37 / / [id number] Dev Manta Vasc Closure 18fr 2114 [id number] Implanted:Qty : 1 on 10/30/2022 at [facility] Closure Device Right: Groin [employer] 04/05/2023 2115 / / [id number] Dev Sealangio Vip 8fr [id number] - [id number] Implanted:Qty : 1 on 10/30/2022 at [facility] Closure Device Left: Groin [employer] 11/19/2022 [id number] / / [id number] Closure Perclose Prostyle Sut Mediate 29110-19 - [id number] Implanted:Qty : 1 on 02/18/2023 at [facility] Closure Device Right: Groin [employer] VASC [employer] 10/19/2024 94055-44 / / [id number] Closure Perclose Prostyle Sut Mediate 04429-64 - [id number] Implanted:Qty : 1 on 02/18/2023 at [facility] Closure Device Right: Groin [employer]ASC [employer] 10/19/2024 86612-98 / / [id number] Lens Io Tecnis 1pc 22.0 [id number] - [id number] Implanted:Qty : 1 on 08/23/2016 by Dominic Peralta MD Eye Left: Eye [employer] 10/20/2019 [id number] 20 / [id number] / Lens Io Tecnis 1pc 22.5 [id number] - [id number] Implanted:Qty : 1 on 09/06/2016 by Dominic Peralta MD Eye Right: Eye [employer] 12/19/2019 [id number] 25 / [id number] / Mesh Plug Perfix Xlg [id number] - [id number] Implanted:Qty : 1 on 08/13/2023 by Franci Kaplan Jr., MD at [facility] Mesh Left: Abdomen [employer] [id number] 01/18/2028 [id number] / / [id number] Pacemaker Micra Vr 23fr 105cm Transcath Pacing Sys [id number] - [id number] Implanted:Qty : 1 on 10/30/2022 by Mariela Stone MD at [facility] Pacemaker Heart [employer] 01/04/2024 [id number] / [id number] / Vlv Aort Evolut Fx Tavr 34mm Evolutfx-34 - [id number] Implanted:Qty : 1 on 10/30/2022 at [facility] Valve N/A: Heart [employer]- HEART VALVE 06/07/2024 EVOLUTFX -34 / [id number] / Dlvry Sys Evolut Fx 34mm S-[id number]-[id number] - S\E\240d-Evol utfx-34 Implanted:Qty : 1 on 10/30/2022 at [facility] Valve N/A: Heart [employer]- HEART VALVE 02/02/2024 D-EVOLUT FX-34 / \E\240D- EVOLUTFX -34 / [id number] Leadless Ppm Procedures Procedure Name Priority Date/Time Associated Diagnosis Comments AZ PRGRMG DEV EVAL 1 LEAD PM/LDLS PM 1 CAR CHMBR IP Routine 03/29/2025 10:51 AM GLUTEN SETTLING TENDER Complete heart block (CMS/HCC) Persistent atrial fibrillation (CMS/HCC) AZ ECG ROUTINE ECG W/LEAST 12 LDS W/I&R Routine 03/26/2025 11:21 AM GLUTEN SETTLING TENDER Benign hypertension BASIC METABOLIC PANEL Routine 03/10/2025 12:43 PM GLUTEN SETTLING TENDER Low serum potassium BASIC METABOLIC PANEL Stat 03/05/2025 12:33 PM GLUTEN SETTLING TENDER Essential (primary) hypertension EXTRA TUBE (LAV) Routine 03/05/2025 12:3 3 PM GLUTEN SETTLING TENDER Essential (primary) hypertension BRAIN NATRIURETIC PEPTIDE, BNP OR PROBNP Stat 03/05/2025 12:33 PM GLUTEN SETTLING TENDER Essential (primary) hypertension TICK-BORNE DISEASE AB PANEL W/REFLEX Routine 03/05/2025 12:32 PM GLUTEN SETTLING TENDER Tick bite, unspecified site, initial encounter FOLATE, SERUM Routine 03/05/2025 12:32 PM GLUTEN SETTLING TENDER Iron deficiency anemia due to chronic blood loss VITAMIN B12 LEVEL Routine 03/05/2025 12: 32 PM GLUTEN SETTLING TENDER Iron deficiency anemia due to chronic blood loss FERRITIN Routine 03/05/2025 12:32 PM GLUTEN SETTLING TENDER Iron deficiency anemia due to chronic blood loss IRON, TIBC, AND PERCENT SATURATION Routine 03/05/2025 12:32 PM GLUTEN SETTLING TENDER Iron deficiency anemia due to chronic blood loss COMPREHENSIVE METABOLIC PANEL Routine 03/05/2025 12:32 PM GLUTEN SETTLING TENDER Iron deficiency anemia due to chronic blood loss CBC WITH DIFFERENTIAL Routine 03/05/2025 12:32 PM GLUTEN SETTLING TENDER Iron deficiency anemia due to chronic blood loss PERIPHERAL BLOOD SMEAR PATHOLOGY INTERP Stat 02/24/2025 1:40 PM GLUTEN SETTLING TENDER Thrombocytopenia COMPREHENSIVE METABOLIC PANEL Stat 02/24/2025 1:40 PM GLUTEN SETTLING TENDER Thrombocytopenia CBC WITH DIFFERENTIAL Stat 02/24/2025 1:40 PM GLUTEN SETTLING TENDER Thrombocytopenia RETICULOCYTES Routine 02/24/2025 1:21 PM GLUTEN SETTLING TENDER Thrombocytopenia HAPTOGLOBIN Routine 02/24/2025 1:21 PM GLUTEN SETTLING TENDER Thrombocytopenia PROTEIN ELECTROPHORESIS W/REFLEX,SERUM Routine 02/24/2025 1:21 PM GLUTEN SETTLING TENDER Thrombocytopenia KAPPA/LAMBDA LIGHT CHAINS Routine 02/24/2025 1:21 PM GLUTEN SETTLING TENDER Thrombocytopenia IRON, TIBC, AND PERCENT SATURATION Routine 02/24/2025 1:21 PM GLUTEN SETTLING TENDER Thrombocytopenia FERRITIN Routine 02/24/2025 1:21 PM GLUTEN SETTLING TENDER Thrombocytopenia VITAMIN B12 AND FOLATE Routine 1:21 PM GLUTEN SETTLING TENDER Thrombocytopenia METHYLMALONIC ACID Routine 02/24/2025 1: 21 PM GLUTEN SETTLING TENDER Thrombocytopenia MISCELLANEOUS LAB TEST Routine 1:21 PM GLUTEN SETTLING TENDER Thrombocytopenia COMPREHENSIVE METABOLIC PANEL Routine 02/18/2025 11:14 AM CDT PROTIME-INR Routine 02/18/2025 COMPREHENSIVE METABOLIC PANEL Stat 02/17/2025 2:37 PM CDT Shortness of breath CBC WITH DIFFERENTIAL Stat 02/17/2025 2:37 PM CDT Shortness of breath BRAIN NATRIURETIC PEPTIDE, BNP OR PROBNP Stat 02/17/2025 2:37 PM CDT Shortness of breath XR CHEST PA AND LATERAL 2 VW Routine 02/17/2025 2:28 PM CDT Shortness of breath COMPREHENSIVE METABOLIC PANEL Routine 02/12/2025 2:29 PM CDT COMPREHENSIVE METABOLIC PANEL Routine 02/11/2025 Anemia, unspecified type CBC WITH DIFFERENTIAL Routine 02/11/2025 Anemia, unspecified type IRON, TIBC, AND PERCENT SATURATION Routine 02/11/2025 Anemia, unspecified type FERRITIN Routine 02/11/2025 Anemia, unspecified type PTH INTACT Routine 02/11/2025 Hypocalcemia CALCIUM IONIZED Routine 02/11/2025 Hypocalcemia SEDIMENTATION RATE Routine 02/03/2025 3: 11 PM CDT Rash RHEUMATOID FACTOR Routine 02/03/2025 3:1 1 PM CDT Rash HEMOGLOBIN A1C Routine 02/03/2025 3:11 PM CDT Type 2 diabetes mellitus without complication, without long-term current use of insulin ([facility]) COMPREHENSIVE METABOLIC PANEL Routine 02/03/2025 3:11 PM CDT Rash CBC WITH DIFFERENTIAL Routine 02/03/2025 3:11 PM CDT Rash C-REACTIVE PROTEIN Routine 02/03/2025 3: 11 PM CDT Rash ELINOR SCREEN W/REFLEX Routine 02/03/2025 3 :11 PM CDT Rash LIPID PANEL Routine 08/03/2024 11:38 AM CDT Mixed hyperlipidemia COLONOSCOPY REPORT 11/30/2022 11 :16 AM CDT HM DIABETES EYE EXAM Routine 07/16/2022 10:57 AM CDT MICROALBUMIN/CREATININ E RATIO, RANDOM UR Routine 11/09/2019 9:43 AM CDT from Last 3 Months or Most Recently Relevant to Health Maintenance Results * AZ PRGRMG DEV EVAL 1 LEAD PM/LDLS PM 1 CAR CHMBR IP (03/29/2025 10:51 AM GLUTEN SETTLING TENDER) Narrative [facility] - 03/29/2025 10:51 AM GLUTEN SETTLING TENDER Rajni Blanco 03/29/2025 10:52 AM Office Device Check By Vendor Photo Optics Technician Date of Procedure: March 26, 2025 Cartography Technician: [employer] Comments: Office check by [employer] insurance representative in conjunction w/ EP office visit. Interrogation reviewed by provider. Please see scan for details. Procedure Note Rajni Blanco - 03/29/2025 10:51 AM CST Office Device Check By Vendor Photo Optics Technician Date of Procedure: March 26, 2025 Cartography Technician: [employer] Comments: Office check by [employer] insurance representative in conjunction w/ EPoffice visit. Interrogation reviewed by provider. Please see scan for details. us Mariela Stone MD CARDIAC SERVICES ORDERA BLES Final Result Performing Organization Address City/[facility]/ZIP Co de Phone Number [facility] [address] [place] [address] * [place] ECG ROUTINE ECG W/LEAST 12 LDS W/I&R (03/26/2025 11:21 AM GLUTEN SETTLING TENDER) Narrative [facility] - 03/26/2025 11:21 AM GLUTEN SETTLING TENDER Dominic Haskins CRNP 03/26/2025 12:05 PM 12 Lead EKG: Rhythm: Ventricular paced rhythm-abnormal ECG, ventricular rate 61 bpm, AZ interval / ms, QRS duration 186 ms, QTc 515 ms Procedure Note Dominic Haskins CRNP - 03/26/2025 11:21 AM CST 12 Lead EKG: Rhythm: Ventricular paced rhythm-abnormal ECG, ventricularrate 61 bpm, AZ interval / ms, QRS duration 186 ms, QTc 515 ms us Dominic GUTIÉRREZ ECG ORDERABLES Final Re sult [facility] CLIA [id number] [address] [facility] [address] [place] [address], [place] [phone] * (ABNORMAL) BASIC METABOLIC PANEL (03/10/2025 12:43 PM GLUTEN SETTLING TENDER) Only the most recent of2 resultswithin the time period is included. [facility] GLUCOSE 102 65 - 139 mg/dL [facility] Comment: Non-fasting reference interval BUN 79(H) 7 - 25 mg/dL [facility] RRL CREATININE 1.48(H) 0.70 - 1.22 mg/dL [facility] RR GFR 46(L) > OR = 60 mL/min/1.7 3m2 [facility] RR BUN/CREAT RATIO 53(H) 6 - 22 (calc) [facility] RRL SODIUM 144 135 - 146 mmol/L [facility] RRL POTASSIUM 3.8 3.5 - 5.3 mmol/L [facility] RRL CHLORIDE 105 98 - 110 mmol/L [facility] RRL CO2 32 20 - 32 mmol/L [facility] RRL CALCIUM 9.1 8.6 - 10.3 mg/dL [facility] RR Comment: FASTING:NO FASTING: NO Test Performed at: [facility] [address] [place] [address] Александр Oviedo Blood 03/10/2025 12:4 3 PM GLUTEN SETTLING TENDER 03/10/2025 12:44 PM GLUTEN SETTLING TENDER us Fran Mancilla NP CHEMISTRY ORDERABLES Final Resu lt Performing Organization Address [facility] de Phone Number [facility] [phone] [facility] [address] [place] [address] * EXTRA TUBE (LAV) (03/05/2025 12:33 PM GLUTEN SETTLING TENDER) Blood Collection / Unknown 03/05/2025 12:33 PM GLUTEN SETTLING TENDER 03/05/2025 2:22 PM GLUTEN SETTLING TENDER us Fran Mancilla NP HEMATOLOGY ORDERABLES Final Res ult Performing Organization Address City/[facility] Co de Phone Number [facility] [employer] [facility] CLIA # [id number] [id number] [place] [address] * (ABNORMAL) BRAIN NATRIURETIC PEPTIDE, BNP OR PROBNP (03/05/2025 12:33 PM GLUTEN SETTLING TENDER) Only the most recent of2 resultswithin the time period is included. PROBNP, N TERMINAL 3,436(H) 0 - 450 pg/mL 03/05/2025 2:43 PM GLUTEN SETTLING TENDER [facility] Comment: INTERPRETIVE COMMENT based on diagnosis: [...] Blood Collection / Unknown 03/05/2025 12:33 PM GLUTEN SETTLING TENDER 03/05/2025 2:21 PM GLUTEN SETTLING TENDER us Fran Mancilla NP CHEMISTRY ORDERABLES Final Resu lt [id number] [address] [place] [address] * TICK-BORNE DISEASE AB PANEL W/REFLEX (03/05/2025 12:32 PM GLUTEN SETTLING TENDER) Pathologist [facility] [place] A.PHAGOCYTOPH IGG <1:64 [facility], A.PHAGOCYTOPH IGM <1:20 [facility], ANAPLASMA PHAGOCYTOPHILUM INTERP [facility], Comment: ANTIBODY NOT DETECTED REFERENCE RANGE: IgG <1:64 IgM <1:20 Anaplasma phagocytophilum is the tick-borne agent causing Human Granulocytic Ehrlichiosis (HGE). HGE is distinct and separate from Human Monocytic Ehrlichiosis (HME), caused by Ehrlichia chaffeensis. Serologic cross-reactivity between A. phagocytophilum and E. Chaffeensis is minimal (5-15%). This test was developed and its analytical performance characteristics have been determined by [facility]. It has not been cleared or approved by FDA. This assay has been validated pursuant to the CLIA regulations and is used for clinical purposes. BABESIA DUNCANI/WA1 IGG AB <1:[address] [facility]/ [facility], Comment: REFERENCE RANGE: <1:256 INTERPRETIVE CRITERIA: <1:256 Antibody not detected > or = 1:256 Antibody detected Babesia duncani, also known as WA1, has been associated with symptoms similar to those caused by Babesia microti. Little, if any, cross-reactivity occurs between Babesia microti and WA1. This test was developed and its analytical performance characteristics have been determined by [facility]. It has not been cleared or approved by FDA. This assay has been validated pursuant to the CLIA regulations and is used for clinical purposes. BABESIA MICROTI IGG AB <1:[address] [facility]/ [facility], BABESIA MICROTI IGM AB <1:[address] [facility]/ [facility], BABESIA MICROTI INTERPRETATION [facility]/ [facility], Comment: ANTIBODY NOT DETECTED REFERENCE RANGES: IgG <1:64 IgM <1:20 Elevated antibody levels to B. microti indicate exposure to the organism. Human babesiosis infection is transmitted by the bite of an infected Ixodes tick or less frequently from transfusion with blood from an infected donor. Definitive diagnosis is made by identifying intraerythrocytic organisms in peripheral blood. In patients with low parasitemia, antibody detection by IFA is recommended. IgG levels greater than or equal to 1:1024 can be detected in acute phase patients with parasites in blood smears. The IFA assay can be used as a seroepidemiologic tool to study the frequency and distribution of B. microti in endemic areas especially in persons with mixed infections also involving Borrelia burgdorferi. This test was developed and its analytical performance characteristics have been determined by [facility]. It has not been cleared or approved by FDA. This assay has been validated pursuant to the CLIA regulations and is used for clinical purposes. LYME IGG, IGM AB <0.90 INDEX Que [facility]/ [facility], Comment: REFERENCE RANGE: <0.90 Index Interpretation < 0.90 NEGATIVE 0.90-1.09 EQUIVOCAL > 1.09 POSITIVE As recommended by the Food and Drug Administration (FDA), all samples with positive or equivocal results in a Borrelia burgdorferi antibody screen will be tested using a blot method. Positive or equivocal screening test results should not be interpreted as truly positive until verified as such using a supplemental assay (e.g., B. burgdorferi blot). The screening test and/or blot for B. burgdorferi antibodies may be falsely negative in early stages of Lyme disease, including the period when erythema migrans is apparent. EHRLICHIA CHAFFEENSIS IGG AB <1:[address] [facility], EHRLICHIA CHAFFEENSIS IGM AB <1:[address] [facility], EHRLICHIA CHAFFEENSIS INTERP [facility]/ [facility], Comment: ANTIBODY NOT DETECTED REFERENCE RANGE: IgG <1:64 IgM <1:20 Ehrlichia chaffeensis has been identified as the causative agent of Human Monocytic Ehrlichiosis (HME). Infected individuals produce specific antibodies to E. chaffeensis that can be detected by an immunofluorescent antibody (IFA) test. Single IgG IFA titers of 1:64 or greater indicate exposure to E. chaffeensis. A four-fold rise in IgG titers between acute and convalescent samples and/or the presence of IgM antibody against E. chaffeensis suggest recent or current infection. This test was developed and its analytical performance characteristics have been determined by [facility]. It has not been cleared or approved by FDA. This assay has been validated pursuant to the CLIA regulations and is used for clinical purposes. FASTING:NO FASTING: NO Test Performed at: [facility], [address] [place] [address] Magda Bynum MD,PhD,RICH Blood 03/05/2025 12:3 2 PM GLUTEN SETTLING TENDER 03/05/2025 12:33 PM GLUTEN SETTLING TENDER Fran Mancilla MATERIAL REQUIREMENTS PLANNING MANAGER CHEMISTRY ORDERABLES Final Resu lt [facility] [phone] [facility], [address] [address] [place] [address] * FOLATE, SERUM (03/05/2025 12:32 PM GLUTEN SETTLING TENDER) FOLATE, SERUM 19.5 ng/mL [facility] Comment: Reference Range Low: <3.4 Borderline: 3.4-5.4 Normal: >5.4 Test Performed at: [facility] [address] [place] [address] Arminda Velasco MD Blood 03/05/2025 12:3 2 PM GLUTEN SETTLING TENDER 03/05/2025 12:33 PM GLUTEN SETTLING TENDER Elvia SAGASTUMEP CHEMISTRY ORDERABLES Final Re sult Performing Organization Address City/[facility] Co de Phone Number [facility] [phone] [address] * (ABNORMAL) IRON, TIBC, AND PERCENT SATURATION (03/05/2025 12:32 PM GLUTEN SETTLING TENDER) Only the most recent of3 resultswithin the time period is included. IRON 34(L) 50 - 180 mcg/dL [facility] TIBC 353 250 - 425 mcg/dL (calc) [facility] IRON % SATURATION 10(L) 20 - 48 % (calc) [facility] Comment: Test Performed at: [facility] [address] [place] [address] Arminda Velasco MD Blood 03/05/2025 12:3 2 PM GLUTEN SETTLING TENDER 03/05/2025 12:33 PM GLUTEN SETTLING TENDER Elvia Espinosa [facility] CHEMISTRY ORDERABLES Final Re sult [facility] [phone] [facility] [address] [address] [place] [address] * (ABNORMAL) CBC WITH DIFFERENTIAL (03/05/2025 12:32 PM GLUTEN SETTLING TENDER) Only the most recent of5 resultswithin the time period is included. WBC 7.3 3.8 - 10.8 Thousand/u L [facility] [place] RBC 4.08(L) 4.20 - 5.80 Million/uL [facility] HEMOGLOBIN 11.5(L) 13.2 - 17.1 g/dL [facility] HEMATOCRIT 35.9(L) 38.5 - 50.0 % [facility] MCV 88.0 80.0 - 100.0 fL [facility] MCH 28.2 27.0 - 33.0 pg [facility] MCHC 32.0 32.0 - 36.0 g/dL [facility] Comment: For adults, a slight decrease in the calculated MCHC value (in the range of 30 to 32 g/dL) is most likely not clinically significant; however, it should be interpreted with caution in correlation with other red cell parameters and the patient's clinical condition. RDW 17.7(H) 11.0 - 15.0 % [facility] PLATELETS 201 140 - 400 Thousand/u L [facility] MPV 11.3 7.5 - 12.5 fL [facility] NEUTROPHIL ABSOLUTE 5,453 1,500 - 7,800 cells/uL [facility] LYMPHOCYTE ABSOLUTE 1,044 850 - 3,900 cells/uL [facility] MONOCYTE ABSOLUTE 591 200 - 950 cells/uL [facility] EOSINOPHIL ABSOLUTE 190 15 - 500 cells/uL [facility] BASOPHILS ABSOLUTE 22 0 - 200 cells/uL [facility] NEUTROPHIL 74.7 % [facility] LYMPHOCYTES 14.3 % [facility] MONOCYTE 8.1 % [facility] EOSINOPHILS 2.6 % [facility] BASOPHILS 0.3 % [facility] Comment: FASTING:NO FASTING: NO Test Performed at: [facility] [address] [place] [address] Александр Sarah Oviedo Blood 03/05/2025 12:3 2 PM GLUTEN SETTLING TENDER 03/05/2025 12:33 PM GLUTEN SETTLING TENDER Elvia SAGASTUMEP HEMATOLOGY ORDERABLES Final R esult Performing Organization Address City/[facility]/ZIP Co de Phone Number [facility] [phone] [facility] [address] [place] [address] * (ABNORMAL) FERRITIN (03/05/2025 12:32 PM GLUTEN SETTLING TENDER) Only the most recent of3 resultswithin the time period is included. FERRITIN 549(H) 24 - 380 ng/mL [facility] Comment: Test Performed at: [employer] [facility] [place] [address] Arminda Velasco MD Blood 03/05/2025 12:3 2 PM GLUTEN SETTLING TENDER 03/05/2025 12:33 PM GLUTEN SETTLING TENDER Elvia LOMBARDI CHEMISTRY ORDERABLES Final Re sult [facility] [phone] [employer] [address] [employer] [place] [employer] [address] * VITAMIN B12 LEVEL (03/05/2025 12:32 PM GLUTEN SETTLING TENDER) VITAMIN B12 534 200 - 1100 pg/mL [facility] Comment: FASTING:NO FASTING: NO Test Performed at: [facility] [address] [address] [place] [address] Arminda Velasco MD Blood 03/05/2025 12:3 2 PM GLUTEN SETTLING TENDER 03/05/2025 12:33 PM GLUTEN SETTLING TENDER Elvia Espinosa [facility] CHEMISTRY ORDERABLES Final Re sult [facility] [phone] [facility] [address] [place] [address] * (ABNORMAL) COMPREHENSIVE METABOLIC PANEL (03/05/2025 12:32 PM GLUTEN SETTLING TENDER) Only the most recent of7 resultswithin the time period is included. GLUCOSE 118 65 - 139 mg/dL [facility] Comment: Non-fasting reference interval BUN 66(H) 7 - 25 mg/dL [facility] CREATININE 1.77(H) 0.70 - 1.22 mg/dL [facility] GFR 37(L) > OR = 60 mL/min/1.7 3m2 [facility] BUN/CREAT RATIO 37(H) 6 - 22 (calc) [facility] SODIUM 134(L) 135 - 146 mmol/L [facility] POTASSIUM 3.5 3.5 - 5.3 mmol/L [facility] CHLORIDE 93(L) 98 - 110 mmol/L [facility] CO2 31 20 - 32 mmol/L [facility] CALCIUM 8.3(L) 8.6 - 10.3 mg/dL [facility] TOTAL PROTEIN 7.5 6.1 - 8.1 g/dL [facility] ALBUMIN 3.6 3.6 - 5.1 g/dL [facility] GLOBULIN 3.9(H) 1.9 - 3.7 g/dL (calc) [facility] ALBUMIN/GLOBULIN RATIO 0.9(L) 1.0 - 2.5 (calc) [facility] BILIRUBIN TOTAL 1.0 0.2 - 1.2 mg/dL [facility] ALKALINE PHOSPHATASE 90 35 - 144 U/L [facility] AST 27 10 - 35 U/L [facility] ALT 20 9 - 46 U/L [facility] Comment: FASTING:NO FASTING: NO Test Performed at: [facility] RR [address] [place] [address] Александр Oviedo Blood 03/05/2025 12:3 2 PM GLUTEN SETTLING TENDER 03/05/2025 12:33 PM GLUTEN SETTLING TENDER Elvia Espinosa [facility] CHEMISTRY ORDERABLES Final Re sult Performing Organization Address City/[facility] Co de Phone Number [facility] [phone] [facility] [address] [place] [address] * PERIPHERAL BLOOD SMEAR PATHOLOGY INTERP (02/24/2025 1:40 PM GLUTEN SETTLING TENDER) Pathologist [facility] [place] PERIPHERAL BLOOD SMEAR INTERP 02/24/2025 6:05 PM GLUTEN SETTLING TENDER [facility] Comment:Does not meet criter ia. Blood Venipuncture / Unknown 02/24/2025 1:40 PM GLUTEN SETTLING TENDER 02/24/2025 1:51 PM GLUTEN SETTLING TENDER Oliver Andino MD HEMATOLOGY ORDERABLES Final R esult Performing Organization Address City/[facility]/ZIP Co de Phone Number [facility] CLIA # [id number] [address] [address] [place] [address] * MISCELLANEOUS LAB TEST (02/24/2025 1:21 PM GLUTEN SETTLING TENDER) MISCELLANEOUS LAB TEST REPORT [facility] Comment: IMMUNOFIXATION, SERUM TEST NAME RESULT FLAG UNITS REF RANGE ========= ====== ==== ===== ========= LASHAWN INTERPRETATION SEE COMMENT RESULT COMMENT: Normal pattern. No monoclonal proteins detected. Test Performed at: [facility] [address] [place] Flavio Ascencio M.D.,PhD Blood 02/24/2025 1:21 PM GLUTEN SETTLING TENDER 02/24/2025 6:45 PM GLUTEN SETTLING TENDER Oliver Andino MD CHEMISTRY ORDERABLES Final Re sult Performing Organization Address [facility] de Phone Number [facility] [phone] [facility] [address] [place], [place] * VITAMIN B12 AND FOLATE (02/24/2025 1:21 PM GLUTEN SETTLING TENDER) Pathologist [facility] [place] VITAMIN B12 591 200 - 1100 pg/mL [facility] FOLATE, SERUM >24.0 ng/mL [facility] Comment: Reference Range Low: <3.4 Borderline: 3.4-5.4 Normal: >5.4 Test Performed at: [facility] [address] [place] [address] Arminda Velasco MD Blood 02/24/2025 1:21 PM GLUTEN SETTLING TENDER 02/24/2025 6:46 PM GLUTEN SETTLING TENDER Oliver Andino MD CHEMISTRY ORDERABLES Final Re sult Performing Organization Address [facility] de Phone Number [facility] [phone] [facility] [address] [address] [employer] [address] * (ABNORMAL) METHYLMALONIC ACID (02/24/2025 1:21 PM GLUTEN SETTLING TENDER) Pathologist [facility] [place] METHYLMALONIC ACID 456(H) 85 - 423 nmol/L [facility] [place] Comment: See Note 1 Serum methylmalonic acid (MMA) levels are used to diagnose and monitor several rare inborn errors of metabolism, including methylmalonic aciduria. The enzymatic conversion of MMA to succinic acid requires vitamin B12 (adenosyl-cobalamin) as a cofactor. Serum MMA levels are also used for assessing functional vitamin B12 deficiency. Vitamin B12 is essential for neurodevelopment, particularly early in . Undiagnosed maternal vitamin B12 deficiency may be associated with adverse / outcomes, such as neural tube defects and intrauterine growth restriction. [facility] utilized Multi-Modal Decomposition (MMD) analysis to establish first and second trimester-specific MMA reference intervals in , as given below: MMA, First trimester (<13 wks gestation): 58-167 nmol/L MMA, Second trimester (13-23 wks gestation): 63-241 nmol/L Note 1 This test was developed and its analytical performance characteristics have been determined by [facility]. It has not been cleared or approved by the FDA. This assay has been validated pursuant to the CLIA regulations and is used for clinical purposes. Test Performed at: [address] [address] Alfa Flores Blood 02/24/2025 1:21 PM GLUTEN SETTLING TENDER 02/24/2025 6:46 PM GLUTEN SETTLING TENDER us Oliver Andino MD CHEMISTRY ORDERABLES Final Re sult [facility] [phone] [address] * (ABNORMAL) KAPPA/LAMBDA, FREE LIGHT CHAINS (02/24/2025 1:21 PM GLUTEN SETTLING TENDER) KAPPA FREE LIGHT CHAIN 69.6(H) 3.3 - 19.4 mg/L [facility] [place] LAMBDA FREE LIGHT CHAIN 59.4(H) 5.7 - 26.3 mg/L [facility] [place] KAPPA/LAMBDA LIGHT CHAIN RATIO 1.17 0.26 - 1.65 [facility] [place] Comment: Free kappa/lambda ratio in serum of normal individuals is 0.26-1.65. Excess production of free kappa or lambda chains can alter this ratio. Monoclonal free light chains are found in serum of patients with multiple myeloma, Waldenstrom's macroglobulinemia, mu-heavy chain disease, primary amyloidosis, light chain deposition disease, monoclonal gammopathy of undetermined significance, and lymphoproliferative disorders. Measurement of free light chain concentration in serum is useful for diagnosis, prognosis, monitoring disease activity and following response to therapy of these disorders. Test Performed at: [facility] [address] [facility] [place] [address] Arminda Velasco MD Blood 02/24/2025 1:21 PM GLUTEN SETTLING TENDER 02/24/2025 6:46 PM GLUTEN SETTLING TENDER Oliver Andino MD CHEMISTRY ORDERABLES Final Re sult Performing Organization Address City/[facility]/ZIP Co de Phone Number [facility] [phone] [facility] [address] [facility] [place] [address] * (ABNORMAL) RETICULOCYTES (02/24/2025 1:21 PM GLUTEN SETTLING TENDER) RETICULOCYTES 2.7 % [facility] RETICULOCYTE, ABSOLUTE 104,490(H ) 25,000 - 90,000 cells/uL [facility] Comment: Test Performed at: [facility] [address] [facility] [place] [address] Arminda Velasco MD Blood 02/24/2025 1:21 PM GLUTEN SETTLING TENDER 02/24/2025 6:46 PM GLUTEN SETTLING TENDER Oliver Andino MD HEMATOLOGY ORDERABLES Final R esult Performing Organization Address City/[facility]/ZIP Co de Phone Number [facility] [phone] [facility] [address] [place] [address] [place] [address] * (ABNORMAL) PROTEIN ELECTROPHORESIS W/REFLEX,SERUM (02/24/2025 1:21 PM GLUTEN SETTLING TENDER) TOTAL PROTEIN 7.0 6.1 - 8.1 g/dL [facility] ALBUMIN SPE 3.5(L) 3.8 - 4.8 g/dL [facility] ALPHA 1 GLOBULIN SPE 0.3 0.2 - 0.3 g/dL [facility] ALPHA 2 GLOBULIN SPE 0.6 0.5 - 0.9 g/dL [facility] Beta 1 Globulin 0.4 0.4 - 0.6 g/dL [facility] Beta 2 Globulin 0.5 0.2 - 0.5 g/dL [facility] GAMMA GLOBULIN 1.7 0.8 - 1.7 g/dL [facility] SPE INTERP [facility] Comment: Hypoalbuminemia may be seen as a result of decreased protein synthesis or protein loss. No restricted band (M-spike) seen. Test Performed at: [employer] [facility] [place] [address] Arminda Velasco MD Blood 02/24/2025 1:21 PM GLUTEN SETTLING TENDER 02/24/2025 6:46 PM GLUTEN SETTLING TENDER Oliver Andino MD CHEMISTRY ORDERABLES Final Re sult [facility] [phone] [facility] [address] [facility] [place] [address] * (ABNORMAL) HAPTOGLOBIN (02/24/2025 1:21 PM GLUTEN SETTLING TENDER) HAPTOGLOBIN 39(L) 43 - 212 mg/dL [facility] Comment: Test Performed at: [facility] [employer] [facility] [place] [address] Arminda Velasco MD Blood 02/24/2025 1:21 PM GLUTEN SETTLING TENDER 02/24/2025 6:46 PM GLUTEN SETTLING TENDER Oliver Andino MD CHEMISTRY ORDERABLES Final Re sult [facility] [phone] [facility] [address] [place] [address] [place] [address] * PROTIME-INR (02/18/2025) ABSTRACTED PROTIME 14.4 ABSTRACTED INR 1.05 Blood 02/18/2025 us Abstract Provider HEMATOLOGY ORDERABLES Final Re sult * XR CHEST PA AND LATERAL 2 [...] DIAGNOSTIC IMAGING ORDERABLES F inal Result * PTH INTACT (02/11/2025) Blood Srinivasa Anderson MD CHEMISTRY ORDERABLES Final Resul t EXTERNAL LAB * CALCIUM IONIZED (02/11/2025) Blood Srinivasa Anderson MD CHEMISTRY ORDERABLES Final Resul t Performing Organization Address [facility] Co de Phone Number EXTERNAL LAB * (ABNORMAL) SEDIMENTATION RATE (02/03/2025 3:11 PM CDT) ESR (SEDIMENTATION RATE) 25(H) < OR = 20 mm/h [facility] Comment: FASTING:NO FASTING: NO Test Performed at: [facility] RR [address] [place] [address] Александр Oviedo Blood 02/03/2025 3:11 PM CDT 02/03/2025 3:12 PM CDT Fran Mancilla NP HEMATOLOGY ORDERABLES Final Res ult Performing Organization Address [facility] Co de Phone Number [facility] [phone] [facility] [address] [place] [address] * RHEUMATOID FACTOR (02/03/2025 3:11 PM CDT) Pathologist [facility] [place] RHEUMATOID FACTOR <10 <14 IU/mL [facility] Comment: Test Performed at: [facility] [address] [employer] [address] Arminda Velasco MD Blood 02/03/2025 3:11 PM CDT 02/03/2025 3:12 PM CDT Fran Mancilla NP CHEMISTRY ORDERABLES Final Resu lt Performing Organization Address [facility] Co de Phone Number [facility] [phone] [facility] [address] [employer] [address] * (ABNORMAL) C-REACTIVE PROTEIN (02/03/2025 3:11 PM CDT) Pathologist [facility] [place] CRP 8.8(H) <8.0 mg/L [facility] Comment: FASTING:NO FASTING: NO Test Performed at: [facility] [address] [employer] [address] [address] Arminda Velasco MD Blood 02/03/2025 3:11 PM CDT 02/03/2025 3:12 PM CDT us Fran Mancilla NP CHEMISTRY ORDERABLES Final Resu lt [facility] [phone] TC[address] [facility] [address] [address] [place] [address] * (ABNORMAL) ELINOR SCREEN W/REFLEX (02/03/2025 3:11 PM CDT) ELINOR SCREEN POSITIVE( A) NEGATIVE [facility] Comment: ELINOR IFA is a first line screen for detecting the presence of up to approximately 150 autoantibodies in various autoimmune diseases. A positive ELINOR IFA result is suggestive of autoimmune disease and reflexes to titer, pattern and the 3 tiered Multiplex 11 Antibody [place]. Testing in the [place] stops at the first positive result, and does not preclude additional positive results. Further laboratory testing may be considered if clinically indicated. For additional information, please refer to http://education.Medrio/faq/FWE687 (This link is being provided for informational/ educational purposes only.) ELINOR TITER 1:1280(H) titer [facility] [place] Comment: Reference Range <1:40 Negative 1:40-1:80 Low Antibody Level >1:80 Elevated Antibody Level ELINOR PATTERN Nuclear, Speckled( A) [facility] [place] Comment: Speckled pattern is associated with mixed connective tissue disease (MCTD), systemic lupus erythematosus (SLE), Sjogren's syndrome, dermatomyositis, and systemic sclerosis/polymyositis overlap. AC-2,4,5,29: Speckled International Consensus on ELINOR Patterns (https://doi.org/10.1515/kmdx-2597-4206) DNA AUTOABS DOUBLE STRANDED <1 IU/mL [facility] [place] Comment: IU/mL Interpretation < or = 4 Negative 5-9 Indeterminate > or = 10 Positive PEMBETRON IGG AB <1.0 NEG <1.0 NEG AI [facility] [place] NEYDA ABS, SM/ELECTRONIC EQUIPMENT MAINT TECH AB <1.0 NEG <1.0 NEG AI [facility] [place] ELECTRONIC EQUIPMENT MAINT TECH AB <1.0 NEG <1.0 NEG AI [facility] [place] CHROMATIN (NUCLEOSOMAL) ANTIBODY <1.0 NEG <1.0 NEG AI [facility] [place] SJOGRENS ABS (SSA) >8.0 POS(A) <1.0 NEG AI [facility] [place] SJOGRENS ABS (SSB) >8.0 POS(A) <1.0 NEG AI [facility] [place] SCLERODERMA AB SCL 70 <1.0 NEG <1.0 NEG AI [facility] [place] JO1 AB <1.0 NEG <1.0 NEG AI [facility] [place] Comment: ANTIBODY PREVALENCE IN TIER 2 SS-A [...] in <2% of normal blood donors. The [place] does not rule out autoimmune disease characterized by other autoantibody specificities such as rheumatoid arthritis, autoimmune hepatitis, primary biliary cirrhosis, autoimmune thyroiditis, Richar's disease, pernicious anemia, autoimmune neuropathies, vasculitis, celiac disease and bullous disease. Please contact your local [facility] laboratory if you are interested in additional testing. ELINOR PROFILE INTERP [facility] [place] Comment: This finding suggests Sjogren's syndrome. These antibodies may occasionally be positive early in other connective tissue diseases. A positive result at this stage of testing stops further testing, and does not preclude additional positive antibodies. Clinical correlation is required to assess the need for testing additional analytes. FASTING:NO FASTING: NO Test Performed at: [facility] [address] [place] [address] Arminda Velasco MD Blood 02/03/2025 3:11 PM CDT 02/03/2025 3:12 PM CDT Fran Mancilla NP CHEMISTRY ORDERABLES Final Resu lt Performing Organization Address [facility] Co de Phone Number [facility] [phone] [address] [place], [place] [address]ner [facility] [place] [address] * (ABNORMAL) HEMOGLOBIN A1C (02/03/2025 3:11 PM CDT) HEMOGLOBIN A1C 6.2(H) <5.7 % [facility] Comment: For someone without known diabetes, [...] children. ESTIMATED AVERAGE GLUCOSE (MG/DL) 131 mg/dL [facility] ESTIMATED AVERAGE GLUCOSE (MMOL/L) 7.3 mmol/L [facility] Comment: FASTING:NO FASTING: NO Test Performed at: [facility] [address] [place] [place] [address] Arminda Velasco MD Blood 02/03/2025 3:11 PM CDT 02/03/2025 3:12 PM CDT Fran Mancilla NP CHEMISTRY ORDERABLES Final Resu lt Performing Organization Address [facility]/ZIP Co de Phone Number [facility] [phone] [facility] [address] [address] [address] * (ABNORMAL) LIPID PANEL (08/03/2024 11:38 AM CDT) CHOLESTEROL 133 <200 mg/dL [facility] HDL 36(L) > OR = 40 mg/dL [facility] TRIGLYCERIDE 71 <150 mg/dL [facility] LDL CALCULATED 82 mg/dL (calc) [facility] Comment: Reference range: <100 Desirable range <100 mg/dL for primary prevention; <70 mg/dL for patients with CHD or diabetic patients with > or = 2 CHD risk factors. LDL-C is now calculated using the Celine calculation, which is a validated novel method providing better accuracy than the Friedewald equation in the estimation of LDL-C. Wilber SS et al. MAGDA. 2013;310(19): 6366-3610 (http://education.Medrio/faq/IJG108) CHOL/HDL RATIO 3.7 <5.0 (calc) [facility] NON-HDL CHOLESTEROL 97 <130 mg/dL (calc) [facility] Comment: For patients with diabetes plus 1 major ASCVD risk factor, treating to a non-HDL-C goal of <100 mg/dL (LDL-C of <70 mg/dL) is considered a therapeutic option. Test Performed at: [facility] [address] [place] [address] Александр Oviedo Blood 08/03/2024 11:3 8 AM CDT 08/03/2024 11:38 AM CDT us Srinivasa Anderson MD CHEMISTRY ORDERABLES Final Resul t [facility] [phone] [facility] [address] [place] [address] * COLONOSCOPY REPORT (11/30/2022 11:16 AM CDT) Narrative Procedure Note Herman Schmitz MD - 11/30/2022 11:16 AM CDT [facility] GI Patient Name: Franci Hernandez Procedure Date: [...] bowel preparation was evaluated using the BBPS ([place] Bowel Preparation Scale) with scores of: Right [...] Scope Out: 11:13:34 AM [address] [place], [place] Herman Schmitz MD GI PROCEDURE ORDERABLES [...] PM CDT [facility] Comment:Reference Range vari es with fluid intake and diet. MICROALBUMIN/ CREAT RATIO, UR 37.9(H) <17.0 mg/g 11/09/2019 9:33 PM T [facility] Urine URINE SPECIMEN OBTAINED BY CLEAN CATCH PROCEDURE / Unknown Collection / Unknown 11/09/2019 9:43 AM CDT 11/09/2019 8:19 PM CDT Narrative [facility] - 11/09/2019 9:33 PM CDT Condition Microalbumin/Creat ratio Normal Males <17 Normal Females <25 Microalbuminuria Males 17-299 Microalbuminuria Females 25-299 Overt proteinuria >=300 Srinivasa Anderson MD URINE ORDERABLES Final Result [facility]# [id number] [address] [place] [address] from Last 3 Months or Most Recently Relevant to Health Maintenance Insurance [address] [place] [address] [facility] [address] MEDICARE PART A AND B * Guarantor: FRANCI HERNANDEZ Account Type Relation to Patient Date of Phone Billing Address Personal/Family [address] [place] [address] RX [employer]WIN [employer] Medicare Part B RX [employer] Medicare Part D Advance Directives For more information, please contact: [phone] * Full Code (Latest Code Status on [...] 5:53 PM 01/29/2023 5:47 PM Care Teams Music Supervisor Relationship Specialty Start Date End Date Srinivasa Anderson MD [address] [phone] PCP - General Family Practice 05/18/24
--- OUTSIDE RECORDS SUMMARY | 2025-04-09 13:05 | XMS_ITS | Encounter Summary ---
Author Organization [facility] Address [address] [place] [address] Care Team Providers Care Stave Grader Name Role Phone Srinivasa Anderson MD Primary Care Provider Encounter Details Date Type Department Care Team (Latest Contact Info) Description 02/08/2004 Outpatient Historical [facility] Services-[facility] [place] [address] [place] [address] Mark Lux MD [address] [place] [address] HEMATURIA (Primary Dx) Social History Tobacco Use Types Packs/Day Years Used Date Smoking Tobacco: Never Assessed Sex and Gender Information Value Date Recorded Sex Assigned at Not on file Legal Sex Male 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
--- OUTSIDE RECORDS SUMMARY | 2025-04-09 13:05 | XMS_ITS | Encounter Summary ---
Author Organization [facility] Address [address] [place] [address] Care Team Providers Care Photographic Platemaker Name Role Phone Srinivasa Anderson MD Primary Care Provider [phone] Encounter Details Date Type Department Care Team (Late st Contact Info) Description 03/11/2025 Results Follow-Up [facility] [address] [place] [address] Fran Mancilla, TUBE CUTTER [address] [place] [address] TICK-BORNE DISEASE AB PANEL W/REFLEX Social History Tobacco Use Types Packs/Day Years [...] on file Legal Sex Male 6:28 AM CRITICAL CARE TECHNICIAN Gender Identity Not on file Sexual Orientation Not on file documented as of this encounter Miscellaneous Notes * Result Encounter Note - Fran Mancilla NP - 03/11/2025 7:24 AM CST Tick panel was negative. Please continue to follow-up with your supervisor brew house and the fisherman helper. If symptoms worsen or if you develop new symptoms please follow-up sooner or go to urgent care/ER. ICAL CARE TECHNICIAN documented in this encounter Plan of Treatment Upcoming Encounters Date Type Department Care Team (Late st Contact Info) Description 06/29/2025 8:00 AM CDT Procedure visit [facility] [address] [place] [address] Mariela Stone MD [address] [place] [address] 07/08/2025 1:00 PM CDT Office Visit [facility] [address] [place] [address] Kodak Samuel MD [address] [place] [address] 03/28/2026 11:00 AM CRITICAL CARE TECHNICIAN Office Visit [facility] [address] [place] [address] Dominic Haskins CRNP [address] [place] [address] Mariela Stone MD [address] [place] [address] Mayra Mohr, VERONIQUE [address] [facility] [address] [place] [address] documented as of this encounter Visit Diagnoses Not on filedocumented in this encounter Care Teams Photographic Platemaker Relationship Specialty Start Date End Date Srinivasa Anderson MD [address] [facility] [address] [place] [address] PCP - General Family Practice 05/18/24 documented as of this encounter
--- OUTSIDE RECORDS SUMMARY | 2025-04-09 13:05 | XMS_ITS | Encounter Summary ---
Author Organization [facility] Address [address] [facility] [place] [address] Care Team Providers Care Acoustical Tile Carpenters Supervisor Name Role Phone Srinivasa Anderson MD Primary Care Provider [phone] Reason for Referral * Outpatient Services (Routine) - Closed Specialty Diagnoses / Procedures Referred By Contac t Referred To Contact Diagnoses Breast swelling Procedures MAMMO BREAST US LT Srinivasa Anderson MD [address] [place] [address] Phone: tel: fax: Referral ID Status Reason Start Date Expiration Date Visits Re quested Visits Authorized [id number] Closed 04/08/2012 04/08/2013 1 1 RIDER Encounter Details Date Type Department Care Team (Late st Contact Info) Description 04/08/2012 [facility] [address] [place] [address] Srinivasa Anderson MD [address] [place] [address] Breast swelling Social History Tobacco Use Types Packs/Day Years Used Date Smoking Tobacco: Former Cigarettes 0.5 30 0 04/22/1962 - 04/22/1992 Smokeless Tobacco: Never Alcohol Use Standard Drinks/Week Comments No 0 (1 standard drink = 0.6 oz pur e alcohol) Sex and Gender Information Value Date Recorded Sex Assigned at Not on file Legal Sex Male 3:08 AM TRIP RIDER Gender Identity Not on file Sexual Orientation Not on file Occupation Industry Job Start Date Job End Date Not on file Not on file Not on file Not on file documented as of this encounter Plan of Treatment Not on file documented as of this encounter Results * MAMMO BREAST US LT (04/08/2012 11:31 AM TRIP RIDER) Anatomical Region Laterality Modality Breast Left Ultrasound 04/08/2012 11:1 3 AM TRIP RIDER Impressions 04/08/2012 8:55 PM TRIP RIDER IMPRESSION: Bilateral diagnostic exam and directed left breast ultrasound was performed today. The mammogram is unremarkable as well as the directed left breast ultrasound. Therefore clinical correlation is recommended regarding the reported symptoms. Patient received the result and recommendation letter. Spencer 1140 AM - uploaded from [employer] 04/08/2012 8:55 PM TRIP RIDER REASON FOR EXAM: Patient is reporting to [...] by the Computer Aided Detection System (CAD), Virtual Iron Software ImageChecker, Version 8.3. LEFT BREAST ULTRASOUND: Sonographic [...] by the Computer Aided Detection System (CAD), [employer] Software ImageExpacker, Version 8.3. LEFT BREAST ULTRASOUND: Sonographic evaluation [...] letter. DB/allie 1140 AM - uploaded from [employer] - us Srinivasa Anderson MD MAMMO ORDERABLES Final Result documented in this encounter Visit Diagnoses Diagnosis Breast swelling Lump or mass in breast Breast swelling Lump or mass in breast documented in this encounter Care Teams Acoustical Tile Carpenters Supervisor Relationship Specialty Start Date End Date Srinivasa Anderson MD [address] [address] PCP - General 07/18/04 documented as of this encounter
--- OUTSIDE RECORDS SUMMARY | 2025-04-09 13:05 | XMS_ITS | Encounter Summary ---
Author Organization [facility] Address [address] [place] [address] Care Team Providers Care Intelligence Intern Name Role Phone Srinivasa Anderson MD Primary Care Provider [phone] Encounter Details Date Type Department Care Team (Latest Contact Info) Description 09/23/2002 Outpatient Historical [facility] [address] [place] [address] Zoltan Mahoney MD NO ADDRESS ON FILE ACTINIC KERATOSIS (Primary Dx); MALIG NEOPLASM SKIN FACE NEC; Inflamed seborr keratos Social History Tobacco Use Types Packs/Day Years Used Date Smoking Tobacco: Never Assessed Sex and Gender Information Value Date Recorded Sex Assigned at Not on file 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
--- OUTSIDE RECORDS SUMMARY | 2025-04-09 13:05 | XMS_ITS | Encounter Summary ---
Author Organization [facility] Address [address] [facility] [facility] [place] [address] Care Team Providers Care Pivot Maker Name Role Phone Srinivasa Anderson MD Primary Care Provider [phone] Encounter Details Date Type Department Care Team (Latest Contact Info) Description 03/20/2007 Outpatient Historical [facility] [place] [place] [address] Srinivasa Anderson MD [address] [place] [address] Other Testicular Hypofunction (Primary Dx) Social History Tobacco Use Types Packs/Day Years Used Date Smoking Tobacco: Never Assessed Sex and Gender Information Value Date Recorded Sex Assigned at Not on file Legal Sex Male 3:08 AM GROUP MANAGING DIRECTOR Gender Identity Not on file Sexual Orientation Not on file documented as of this encounter Plan of Treatment Not on file documented as of this encounter Visit Diagnoses Diagnosis Other testicular hypofunction- Primary documented in this encounter Care Teams Pivot Maker Relationship Specialty Start Date End Date Srinivasa Anderson MD [address] [place] [address] PCP - General 07/18/04 documented as of this encounter
--- OUTSIDE RECORDS SUMMARY | 2025-04-09 13:05 | XMS_ITS | Encounter Summary ---
Author Organization [facility] Address [address] [facility] [place] [address] Care Team Providers Care Dental Laboratory Assistant Name Role Phone Srinivasa Anderson MD Primary Care Provider [phone] Encounter Details Date Type Department Care Team (Latest Contact Info) Description 11/10/2003 Outpatient Historical [facility] [place] [place] [address] Mark Lux MD [address] [place] [address] HYPERTENSION NOS (Primary Dx); Pure hypercholesterolem; B12 DEFIC ANEMIA NEC Social History Tobacco Use Types Packs/Day Years Used Date Smoking Tobacco: Never Assessed Sex and Gender Information Value Date Recorded Sex Assigned at Not on file Legal Sex Male 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
--- OUTSIDE RECORDS SUMMARY | 2025-04-09 13:05 | XMS_ITS | Encounter Summary ---
Author Organization [facility] Address [address] [place] [address] Care Team Providers Care Party Director Name Role Phone Srinivasa Anderson MD Primary Care Provider [phone] Encounter Details Date Type Department Care Team (Latest Contact Info) Description 09/23/2002 Outpatient Historical [facility]- [facility] [address] [place] [address] Zoltan Mahoney MD NO ADDRESS ON FILE MALIG NEOPLASM SKIN EAR (Primary Dx) Social History Tobacco Use Types Packs/Day Years Used Date Smoking Tobacco: Never Assessed Sex and Gender Information Value Date Recorded Sex Assigned at Not on file Legal Sex Male 3:08 AM PRODUCTION FOREMAN Gender Identity Not on file Sexual Orientation Not on file documented as of this encounter Plan of Treatment Not on file documented as of this encounter Visit Diagnoses Diagnosis 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
--- OUTSIDE RECORDS SUMMARY | 2025-04-09 13:05 | XMS_ITS | Encounter Summary ---
Author Organization [facility] Address [address] [place] [address] Care Team Providers Care Workforce Management Manager Name Role Phone Srinivasa Anderson MD Primary Care Provider [phone] Encounter Details Date Type Department Care Team (Latest Contact Info) Description 09/27/2005 Outpatient Historical [facility]- [facility] [place] [address] [place] [address] Zoltan Mahoney MD NO ADDRESS ON FILE Malig John Skin Arm (Primary Dx); Actinic Keratosis; Other Seborrheic Keratosis Social History Tobacco Use Types Packs/Day Years Used Date Smoking Tobacco: Never Assessed Sex and Gender Information Value Date Recorded Sex Assigned at Not on file Legal Sex Male 3:08 AM PSYCH ASSISTANT Gender Identity Not on file Sexual Orientation Not on file documented as of this encounter Plan of Treatment Not on file documented as of this encounter Visit Diagnoses Diagnosis Malig john skin arm- Primary 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
--- OUTSIDE RECORDS SUMMARY | 2025-04-09 13:05 | XMS_ITS | Encounter Summary ---
Author Organization [facility] Address [address] [facility] [place] [address] Care Team Providers Care Counting Machine Operator Name Role Phone Srinivasa Anderson MD Primary Care Provider [phone] Encounter Details Date Type Department Care Team (Latest Contact Info) Description 05/07/2003 Outpatient Historical [facility] [place] [place] [address] Mark Lux MD [address] [place] [address] HYPERTENSION NOS (Primary Dx); Pure hypercholesterolem Social History Tobacco Use Types Packs/Day Years Used Date Smoking Tobacco: Never Assessed Sex and Gender Information Value Date Recorded Sex Assigned at Not on file Legal Sex Male 3: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
--- OUTSIDE RECORDS SUMMARY | 2025-04-09 13:05 | XMS_ITS | Encounter Summary ---
Author Organization [facility] Address [address] [facility] [place] [address] Care Team Providers Care Security Systems Sales Representative Name Role Phone Srinivasa Anderson MD Primary Care Provider [phone] Encounter Details Date Type Department Care Team (Latest Contact Info) Description 06/28/2004 Outpatient Historical [facility] [place] [place] [address] Srinivasa Anderson MD [address] [place] [address] PULM EMBOLISM/INFARCT IATROGENIC (CMS/HCC) (Primary Dx); PERNICIOUS ANEMIA; Benign amado lg bowel; NOCTURIA Social History Tobacco Use Types Packs/Day Years Used Date Smoking Tobacco: Never Assessed Sex and Gender Information Value Date Recorded Sex Assigned at Not on file Legal Sex Male 3:08 AM GOVERNMENT SERVICE EXECUTIVE Gender Identity Not on file Sexual Orientation Not on file documented as of this encounter Plan of Treatment Not on file documented as of this encounter Visit Diagnoses Diagnosis 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
--- OUTSIDE RECORDS SUMMARY | 2025-04-09 13:05 | XMS_ITS | Encounter Summary ---
Author Organization [facility] Address [address] [facility] [place] [address] Care Team Providers Care Tag Clerk Name Role Phone Srinivasa Anderson MD Primary Care Provider [phone] Encounter Details Date Type Department Care Team (Latest Contact Info) Description 10/03/2004 Outpatient [facility] [place] [place] [address] Srinivasa Anderson MD [address] [place] [address] HYPERTENSION NOS (Primary Dx); Plantar fibromatosis; OTHER MALAISE AND FATIGUE; Toxic effect venom Social History Tobacco Use Types Packs/Day Years Used Date Smoking Tobacco: Never Assessed Sex and Gender Information Value Date Recorded Sex Assigned at Not on file Legal Sex Male 3: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
--- OUTSIDE RECORDS SUMMARY | 2025-04-09 13:06 | XMS_ITS | Encounter Summary ---
Author Organization [facility] Address [address] [facility] [place] [address] Care Team Providers Care Stable Attendant Name Role Phone Srinivasa Anderson MD Primary Care Provider [phone] Encounter Details Date Type Department Care Team (Latest Contact Info) Description 08/04/2002 Outpatient Historical [facility] Int [facility] [place] [place] [address] Mark Lux MD [address] [place] [address] JOINT PAIN-PELVIS (Primary Dx) Social History Tobacco Use Types Packs/Day Years Used Date Smoking Tobacco: Never Assessed Sex and Gender Information Value Date Recorded Sex Assigned at Not on file Legal Sex Male 3:08 AM 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
--- OUTSIDE RECORDS SUMMARY | 2025-04-09 13:06 | XMS_ITS | Encounter Summary ---
Author Organization [facility] Address [address] [facility] [place] [address] Care Team Providers Care Brick Extruder Operator Name Role Phone Srinivasa Anderson MD Primary Care Provider [phone] Encounter Details Date Type Department Care Team (Latest Contact Info) Description 09/11/2002 Outpatient Historical [facility]- [facility] [place] [address] [place] [id number] Zoltan Mahoney MD NO ADDRESS ON FILE ACTINIC KERATOSIS (Primary Dx); Malig amado scalp/skin neck; SEBORRHEIC KERATOSIS NOS Social History Tobacco Use Types Packs/Day Years Used Date Smoking Tobacco: Never Assessed Sex and Gender Information Value Date Recorded Sex Assigned at Not on file Legal Sex Male 3:08 AM COMPENSATION INTERN Gender Identity Not on file Sexual Orientation Not on file documented as of this encounter Plan of Treatment Not on file documented as of this encounter Visit Diagnoses Diagnosis Actinic keratosis- Primary Malig amado scalp/skin neck 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
--- OUTSIDE RECORDS SUMMARY | 2025-04-09 13:06 | XMS_ITS | Encounter Summary ---
Author Organization [facility] Address [address] [place] [facility] [place] [address] Care Team Providers Care Slot Floor Supervisor Name Role Phone Srinivasa Anderson MD Primary Care Provider [phone] Encounter Details Date Type Department Care Team (Late st Contact Info) Description 10/21/2000 Outpatient Historical [facility] Yfn Hahn MD [address] [place], [place] [id number] Unspecified essential hypertension (Primary Dx); Other vitamin B12 deficiency anemia; Routine medical exam; Special screening for malignant neoplasm of prostate; Femoral vein phlebitis (CMS/HCC) Social History Tobacco Use Types Packs/Day Years Used Date Smoking Tobacco: Never Assessed Sex and Gender Information Value Date Recorded Sex Assigned at Not on file Legal Sex Male 3:08 AM INTERNATIONAL ACCOUNT REPRESENTATIVE Gender Identity Not on file Sexual [...] (superficial) documented in this encounter Care Teams Slot Floor Supervisor Relationship Specialty Start Date End Date Srinivasa Anderson MD [address] [address] PCP - General 07/18/04 documented as of this encounter
--- OUTSIDE RECORDS SUMMARY | 2025-04-09 13:06 | XMS_ITS | Encounter Summary ---
Author Organization [facility] Address [address] [place] [address] Care Team Providers Care Poultry Farmer Name Role Phone Srinivasa Anderson MD Primary Care Provider [phone] Encounter Details Date Type Department Care Team (Latest Contact Info) Description 03/27/2005 Outpatient Historical [facility] [address] [place] [address] Zoltan Mahoney MD NO ADDRESS ON FILE ACTINIC KERATOSIS (Primary Dx) Social History Tobacco Use Types Packs/Day Years Used Date Smoking Tobacco: Never Assessed Sex and Gender Information Value Date Recorded Sex Assigned at Not on file Legal Sex Male 3: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 INTEGRATION SPECIALIST Gender Identity Not on file Sexual Orientation Not on file documented as of this encounter Plan of Treatment Not on file documented as of this encounter Visit Diagnoses Diagnosis Actinic keratosis- Primary documented in this encounter Care Teams Poultry Farmer Relationship Specialty Start Date End Date Srinivasa Anderson MD [address] [address] PCP - General 07/18/04 documented as of this encounter
--- OUTSIDE RECORDS SUMMARY | 2025-04-09 13:06 | XMS_ITS | Encounter Summary ---
Author Organization [facility] Address [address] [place] [address] Care Team Providers Care Input Output Clerk Name Role Phone Srinivasa Anderson MD Primary Care Provider [phone] Encounter Details Date Type Department Care Team (Latest Contact Info) Description 02/14/2005 Outpatient Historical [facility] [address] [place] [address] Shelia Alberto, RN NO ADDRESS ON FILE SCREENING-CARDIOVAS C NEC (Primary Dx) Social History Tobacco Use Types Packs/Day Years Used Date Smoking Tobacco: Never Assessed Sex and Gender Information Value Date Recorded Sex Assigned at Not on file 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
--- OUTSIDE RECORDS SUMMARY | 2025-04-09 13:06 | XMS_ITS | Encounter Summary ---
Author Organization [facility] Address [address] [facility] [place] [address] Care Team Providers Care Patient Consumer Marketer Name Role Phone Srinivasa Anderson MD Primary Care Provider [phone] Encounter Details Date Type Department Care Team (Latest Contact Info) Description 05/30/1998 Outpatient Historical [facility] Dermatology- [facility] [place] [address] [place] [address] Zoltan Mahoney MD NO ADDRESS ON FILE Other seborrheic keratosis (Primary Dx) Social History Tobacco Use Types Packs/Day Years Used Date Smoking Tobacco: Never Assessed Sex and Gender Information Value Date Recorded Sex Assigned at Not on file Legal Sex Male 3: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
--- OUTSIDE RECORDS SUMMARY | 2025-04-09 13:06 | XMS_ITS | Encounter Summary ---
Author Organization [facility] Address [address] [facility] [place] [address] Care Team Providers Care Wiring Technician Name Role Phone Srinivasa Anderson MD Primary Care Provider [phone] Encounter Details Date Type Department Care Team (Late st Contact Info) Description 10/21/2000 Outpatient Historical [facility] [place] [place] [address] Yfn Hahn MD [address] [place] [address] Routine medical exam (Primary Dx) Social History Tobacco Use Types Packs/Day Years Used Date Smoking Tobacco: Never Assessed Sex and Gender Information Value Date Recorded Sex Assigned at Not on file 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
--- OUTSIDE RECORDS SUMMARY | 2025-04-09 13:06 | XMS_ITS | Encounter Summary ---
Author Organization [facility] Address [address] [facility] [place] [address] Care Team Providers Care Plane Tender Name Role Phone Srinivasa Anderson MD Primary Care Provider Encounter Details Date Type Department Care Team (Latest Contact Info) Description 2005 Outpatient Historical [facility] [place] [place] [address] Srinivasa Anderson MD [address] [place] [address] Other Testicular Hypofunction (Primary Dx) Social History Tobacco Use Types Packs/Day Years Used Date Smoking Tobacco: Never Assessed Sex and Gender Information Value Date Recorded Sex Assigned at Not on file 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
--- OUTSIDE RECORDS SUMMARY | 2025-04-09 13:06 | XMS_ITS | Encounter Summary ---
Author Organization [facility] Address [address] [facility] [place] [address] Care Team Providers Care Frontend Engineer Name Role Phone Srinivasa Anderson MD Primary Care Provider [phone] Encounter Details Date Type Department Care Team (Latest Contact Info) Description 12/02/2001 Outpatient Historical [facility] Int [facility] [place] [place] [address] Mark Lux MD [address] [place] [address] Pure hypercholesterolem (Primary Dx); HYPERTENSION NOS Social History Tobacco Use Types Packs/Day Years Used Date Smoking Tobacco: Never Assessed Sex and Gender Information Value Date Recorded Sex Assigned at Not on file 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
--- OUTSIDE RECORDS SUMMARY | 2025-04-09 13:06 | XMS_ITS | Encounter Summary ---
Author Organization [facility] Address [address] [facility] [place] [address] Care Team Providers Care Respiratory Supervisor Name Role Phone Srinivasa Anderson MD Primary Care Provider [phone] Encounter Details Date Type Department Care Team (Late st Contact Info) Description 11/27/2000 Outpatient Historical [facility] Yfn Hahn MD [address] [place], [place] [id number] Other pulmonary embolism and infarction (CMS/HCC) (Primary Dx) Social History Tobacco Use Types Packs/Day Years Used Date Smoking Tobacco: Never Assessed Sex and Gender Information Value Date Recorded Sex Assigned at Not on file Legal Sex Male 3: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
--- OUTSIDE RECORDS SUMMARY | 2025-04-09 13:06 | XMS_ITS | Encounter Summary ---
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 Social History Tobacco Use Types Packs/Day Years Used Date Smoking Tobacco: Never Assessed Sex and Gender Information Value Date Recorded Sex Assigned at Not on file 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
--- OUTSIDE RECORDS SUMMARY | 2025-04-09 13:06 | XMS_ITS | Encounter Summary ---
Author Organization [facility] Address [address] [facility] [place] [address] Care Team Providers Care Metal Engraver Name Role Phone Srinivasa Anderson MD Primary Care Provider [phone] Encounter Details Date Type Department Care Team (Latest Contact Info) Description 06/13/2005 Outpatient Historical [facility] [place] [place] [address] Srinivasa Anderson MD [address] [place] [address] TESTICULAR HYPOFUNC NEC (Primary Dx) Social History Tobacco Use Types Packs/Day Years Used Date Smoking Tobacco: Never Assessed Sex and Gender Information Value Date Recorded Sex Assigned at Not on file Legal Sex Male 3: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
--- OUTSIDE RECORDS SUMMARY | 2025-04-09 13:06 | XMS_ITS | Encounter Summary ---
Author Organization [facility] Address [address] [place] [address] Care Team Providers Care County Program Technician Name Role Phone Srinivasa Anderson MD Primary Care Provider [phone] Encounter Details Date Type Department Care Team (Latest Contact Info) Description 02/18/2001 Outpatient Historical [facility] [place] [address] [place] [address] Zoltan Mahoney MD NO ADDRESS ON FILE PERS HX SKIN MALIGNANCY NEC (Primary Dx); SEBORRHEIC KERATOSIS NOS; ACTINIC KERATOSIS Social History Tobacco Use Types Packs/Day Years Used Date Smoking Tobacco: Never Assessed Sex and Gender Information Value Date Recorded Sex Assigned at Not on file 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
--- OUTSIDE RECORDS SUMMARY | 2025-04-09 13:06 | XMS_ITS | Encounter Summary ---
Author Organization [facility] Address [address] [facility] [place] [address] Care Team Providers Care Grant Coordinator Name Role Phone Srinivasa Anderson MD Primary Care Provider [phone] Encounter Details Date Type Department Care Team (Latest Contact Info) Description 02/14/2005 Outpatient Historical [facility] [place] [place] [address] Srinivasa Anderson MD [address] [place] [address] TESTICULAR HYPOFUNC NEC (Primary Dx); Vaccine for influenza Social History Tobacco Use Types Packs/Day Years Used Date Smoking Tobacco: Never Assessed Sex and Gender Information Value Date Recorded Sex Assigned at Not on file Legal Sex Male 3: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
--- OUTSIDE RECORDS SUMMARY | 2025-04-09 13:06 | XMS_ITS | Encounter Summary ---
Author Organization [facility] Address [address] [facility] [place] [address] Care Team Providers Care Anesthesiology Technologist Name Role Phone Srinivasa Anderson MD Primary Care Provider Encounter Details Date Type Department Care Team (Latest Contact Info) Description 01/23/[address] 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
--- OUTSIDE RECORDS SUMMARY | 2025-04-09 13:06 | XMS_ITS | Encounter Summary ---
Author Organization [facility] Address [address] [place] [facility] [address] Care Team Providers Care Anthropologist Physical Name Role Phone Srinivasa Anderson MD Primary Care Provider [phone] Encounter Details Date Type Department Care Team (Late st Contact Info) Description 02/17/2001 Outpatient [facility] [place] [address] Yfn Hahn MD [address] [place] [address] ACUTE BRONCHITIS (Primary Dx); THROMBOPHLEBITIS LEG NOS Social History Tobacco Use Types Packs/Day Years Used Date Smoking Tobacco: Never Assessed Sex and Gender Information Value Date Recorded Sex Assigned at Not on file 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
--- OUTSIDE RECORDS SUMMARY | 2025-04-09 13:06 | XMS_ITS | Encounter Summary ---
Author Organization [facility] Address [address] [facility] [place] [address] Care Team Providers Care Dehydrating Press Operator Name Role Phone Srinivasa Anderson MD Primary Care Provider [phone] Encounter Details Date Type Department Care Team (Latest Contact Info) Description 03/09/2005 Outpatient Historical [facility] [place] [address] Srinivasa Anderson MD [address] [place] [address] TESTICULAR HYPOFUNC NEC (Primary Dx) Social History Tobacco Use Types Packs/Day Years Used Date Smoking Tobacco: Never Assessed Sex and Gender Information Value Date Recorded Sex Assigned at Not on file Legal Sex Male 3:08 AM INDIVIDUAL PENSION CONSULTANT Gender Identity Not on file Sexual Orientation Not on file documented as of this encounter Plan of Treatment Not on file documented as of this encounter Visit Diagnoses Diagnosis Other testicular hypofunction- Primary documented in this encounter Care Teams Dehydrating Press Operator Relationship Specialty Start Date End Date Srinivasa Anderson MD [address] [place] [address] PCP - General 07/18/04 documented as of this encounter
--- OUTSIDE RECORDS SUMMARY | 2025-04-09 13:06 | XMS_ITS | Encounter Summary ---
Author Organization [facility] Address [address] [facility] [place] [address] Care Team Providers Care Detective Homicide Squad Name Role Phone Srinivasa Anderson MD Primary Care Provider [phone] Encounter Details Date Type Department Care Team (Late st Contact Info) Description 12/30/2000 Outpatient Historical [facility] Yfn Hahn MD [address] [place], [place] [id number] Other pulmonary embolism and infarction (CMS/HCC) (Primary Dx) Social History Tobacco Use Types Packs/Day Years Used Date Smoking Tobacco: Never Assessed Sex and Gender Information Value Date Recorded Sex Assigned at Not on file Legal Sex Male 3:08 AM QUALITY HEAD Gender Identity Not on file Sexual Orientation Not on file documented as of this encounter Plan of Treatment Not on file documented as of this encounter Visit Diagnoses Diagnosis Other pulmonary embolism and infarction (CMS/HCC)- Primary Other pulmonary embolism and infarction documented in this encounter Care Teams Detective Homicide Squad Relationship Specialty Start Date End Date Srinivasa Anderson MD [address] [place] [address] PCP - General 07/18/04 documented as of this encounter
--- OUTSIDE RECORDS SUMMARY | 2025-04-09 13:06 | XMS_ITS | Encounter Summary ---
Author Organization [facility] Address [address] [facility] [place] [address] Care Team Providers Care Job Superintendent Name Role Phone Srinivasa Anderson MD Primary Care Provider Encounter Details Date Type Department Care Team (Late st Contact Info) Description 02/17/2001 Outpatient Historical [facility] [address] [place] [address] Yfn Hahn MD [address] [place] [address] COUGH (Primary Dx); RESPIRATORY ABNORM NEC Social History Tobacco Use Types Packs/Day Years Used Date Smoking Tobacco: Never Assessed Sex and Gender Information Value Date Recorded Sex Assigned at Not on file Legal Sex Male 3:08 AM 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
--- OUTSIDE RECORDS SUMMARY | 2025-04-09 13:06 | XMS_ITS | Encounter Summary ---
Author Organization [facility] Address [address] [facility] [place] [address] Care Team Providers Care Laborer Bituminous Paving Name Role Phone Srinivasa Anderson MD Primary Care Provider [phone] Encounter Details Date Type Department Care Team (Latest Contact Info) Description 04/18/2005 Outpatient Historical [facility] [place] [place] [address] Srinivasa Anderson MD [address] [place] [address] TESTICULAR HYPOFUNC NEC (Primary Dx) Social History Tobacco Use Types Packs/Day Years Used Date Smoking Tobacco: Never Assessed Sex and Gender Information Value Date Recorded Sex Assigned at Not on file 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
--- OUTSIDE RECORDS SUMMARY | 2025-04-09 13:06 | XMS_ITS | Encounter Summary ---
Author Organization [facility] Address [address] [facility] [place] [address] Care Team Providers Care Veneer Joiner Name Role Phone Srinivasa Anderson MD Primary Care Provider [phone] Encounter Details Date Type Department Care Team (Latest Contact Info) Description 05/22/2005 Outpatient Historical [facility] [place] [place] [address] Srinivasa Anderson MD [address] [place] [address] TESTICULAR HYPOFUNC NEC (Primary Dx); FOLLOW-UP EXAM NOS Social History Tobacco Use Types Packs/Day Years Used Date Smoking Tobacco: Never Assessed Sex and Gender Information Value Date Recorded Sex Assigned at Not on file Legal Sex Male 3:08 AM CONTACT ACID PLANT OPERATOR Gender Identity Not on file Sexual Orientation Not on file documented as of this encounter Plan of Treatment Not on file documented as of this encounter Visit Diagnoses Diagnosis Other testicular hypofunction- Primary Unspecified follow-up examination documented in this encounter Care Teams Veneer Joiner Relationship Specialty Start Date End Date Srinivasa Anderson MD [address] [place] [address] PCP - General 07/18/04 documented as of this encounter
--- OUTSIDE RECORDS SUMMARY | 2025-04-09 13:06 | XMS_ITS | Encounter Summary ---
Author Organization [facility] Address [address] [facility] [place] [address] Care Team Providers Care Telesales Manager Name Role Phone Srinivasa Anderson MD Primary Care Provider [phone] Encounter Details Date Type Department Care Team (Latest Contact Info) Description 08/04/2002 Outpatient Historical [facility] Imaging Services-[place] [address] [place] [address] Mark Lux MD [address] [place] [address] JOINT PAIN-PELVIS (Primary Dx) Social History Tobacco Use Types Packs/Day Years Used Date Smoking Tobacco: Never Assessed Sex and Gender Information Value Date Recorded Sex Assigned at Not on file 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
--- OUTSIDE RECORDS SUMMARY | 2025-04-09 13:06 | XMS_ITS | Encounter Summary ---
Author Organization [facility] Address [address] [facility] [place] [address] Care Team Providers Care Insurance Loss Control Surveyor Name Role Phone Srinivasa Anderson MD Primary Care Provider [phone] Encounter Details Date Type Department Care Team (Late st Contact Info) Description 11/05/2000 Outpatient Historical [facility] [place] [place] [address] Yfn Hahn MD [address] [place] [address] Allergic rhinitis, cause unspecified (Primary Dx); Unspecified essential hypertension Social History Tobacco Use Types Packs/Day Years Used Date Smoking Tobacco: Never Assessed Sex and Gender Information Value Date Recorded Sex Assigned at Not on file Legal Sex Male 3:08 AM HEAD OF MARKETING ANALYTICS Gender Identity Not on file Sexual Orientation Not on file documented as of this encounter Plan of Treatment Not on file documented as of this encounter Visit Diagnoses Diagnosis Allergic rhinitis, cause unspecified- Primary Unspecified essential hypertension documented in this encounter Care Teams Insurance Loss Control Surveyor Relationship Specialty Start Date End Date Srinivasa Anderson MD [address] [place] [address] PCP - General 07/18/04 documented as of this encounter
--- OUTSIDE RECORDS SUMMARY | 2025-04-09 13:06 | XMS_ITS | Encounter Summary ---
Author Organization [facility] Address [address] [facility] [place] [address] Care Team Providers Care Resin Mixer Name Role Phone Srinivasa Anderson MD Primary Care Provider [phone] Encounter Details Date Type Department Care Team (Latest Contact Info) Description 03/27/2005 Outpatient Historical [facility] Dermatology- [facility] [place] [address] [place] [address] Zoltan Mahoney MD NO ADDRESS ON FILE ACTINIC KERATOSIS (Primary Dx); Inflamed seborr keratos; SEBORRHEIC KERATOSIS NOS; Malig amado skin arm Social History Tobacco Use Types Packs/Day Years Used Date Smoking Tobacco: Never Assessed Sex and Gender Information Value Date Recorded Sex Assigned at Not on file 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 Male 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 WARDSPERSON Gender Identity Not on file Sexual Orientation Not on file documented as of this encounter Plan of Treatment Not on file documented as of this encounter Visit Diagnoses Diagnosis Actinic keratosis- Primary Inflamed seborr keratos Inflamed seborrheic keratosis Other seborrheic keratosis Malig amado skin arm 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
--- OUTSIDE RECORDS SUMMARY | 2025-04-09 13:06 | XMS_ITS | Encounter Summary ---
Author Organization [facility] Address [address] [facility] [place] [address] Care Team Providers Care Header Machine Operator Name Role Phone Srinivasa Anderson MD Primary Care Provider Encounter Details Date Type Department Care Team (Latest Contact Info) Description 05/08/2001 Outpatient Historical [facility] [place] [place] [address] Mark Lux MD [address] [place] [address] HYPERTENSION NOS (Primary Dx); [facility] ANTICOAG USE; PULM EMBOLISM/INFARCT IATROGENIC (CMS/HCC) Social History Tobacco Use Types Packs/Day Years Used Date Smoking Tobacco: Never Assessed Sex and Gender Information Value Date Recorded Sex Assigned at Not on file 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 Gender Identity Not on file Sexual Orientation Not on file documented as of this encounter Plan of Treatment Not on file documented as of this encounter Visit Diagnoses Diagnosis Unspecified essential hypertension- Primary chemistry laboratory technician (current) use of anticoagulants Long-term (current) use of anticoagulants Iatrogenic pulmonary embolism and infarction (CMS/HCC) Iatrogenic pulmonary embolism and infarction documented in this encounter Care Teams Header Machine Operator Relationship Specialty Start Date End Date Srinivasa Anderson MD [address] [place] [address] PCP - General 07/18/04 documented as of this encounter
--- OUTSIDE RECORDS SUMMARY | 2025-04-09 13:06 | XMS_ITS | Encounter Summary ---
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 Social History Tobacco Use Types Packs/Day Years Used Date Smoking Tobacco: Never Assessed Sex and Gender Information Value Date Recorded Sex Assigned at Not on file Legal Sex Male 3:08 AM DRAY DRIVER Gender Identity Not on file Sexual Orientation Not on file documented as of this encounter Plan of Treatment Not on file documented as of this encounter Visit Diagnoses Diagnosis 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
--- OUTSIDE RECORDS SUMMARY | 2025-04-09 13:06 | XMS_ITS | Encounter Summary ---
Author Organization [facility] Address [address] [place] [address] Care Team Providers Care Purchasing Manager/Sales Name Role Phone Srinivasa Anderson MD Primary Care Provider [phone] Reason for Visit * Reason Onset Date Comments Question 09/13/2022 Encounter Details Date Type Department Care Team (Late st Contact Info) Description 09/13/2022 Telephone [facility] [address] [facility] [address] [place] [address] Jaden Vital MD NO ADDRESS ON FILE Question Social History Tobacco Use Types Packs/Day Years Used Date Smoking Tobacco: Never Smokeless Tobacco: Former Alcohol Use Standard Drinks/Week Comments Yes 1 (1 standard drink = 0.6 oz pur e alcohol) Sex and Gender Information Value Date Recorded Sex Assigned at Not on file Legal Sex Male 6:28 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 Gender Identity Not on file Sexual Orientation [...] Provider: Zahraa Person calling: Sultana Phone #: [phone] Relationship to patient: , PHI not signed [...] Description 06/29/2025 8:00 AM CDT Procedure visit [facility] [address] [place] [address] Mariela Stone MD [address] [place] [address] 07/08/2025 1:00 PM CDT Office Visit [facility] [address] [place] [address] Kodak Samuel MD [address] [place] [address] 03/28/2026 11:00 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 Office Visit [facility] [address] [place] [address] Dominic Haskins CRNP [address] [place] [address] Mariela Stone MD [address] [place] [address] Mayra Mohr NP [address] [facility] [address] [place] [address] documented as of this encounter Visit Diagnoses Not on filedocumented in this encounter Care Teams Purchasing Manager/Sales Relationship Specialty Start Date End Date Srinivasa Anderson MD [address] [facility] [address] [place] [address] PCP - General Family Practice 05/18/24 documented as of this encounter
--- OUTSIDE RECORDS SUMMARY | 2025-04-09 13:06 | XMS_ITS | Encounter Summary ---
Author Organization [facility] Address [address] 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
--- OUTSIDE RECORDS SUMMARY | 2025-04-09 13:06 | XMS_ITS | Encounter Summary ---
Author Organization [facility] Address [address] [facility] [place] [address] Care Team Providers Care Welfare Investigator Name Role Phone Srinivasa Anderson MD Primary Care Provider [phone] Encounter Details Date Type Department Care Team (Latest Contact Info) Description 09/08/2002 Outpatient Historical [facility] Robbi Post MD [address] [facility] [place] [address] Spondylolisthesis (Primary Dx); JOINT PAIN-PELVIS; LUMBAGO Social History Tobacco Use Types Packs/Day Years Used Date Smoking Tobacco: Never Assessed Sex and Gender Information Value Date Recorded Sex Assigned at Not on file 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
--- OUTSIDE RECORDS SUMMARY | 2025-04-09 13:06 | XMS_ITS | Encounter Summary ---
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 (Primary Dx); Inflamed seborr keratos; Other seborrheic keratosis Social History Tobacco Use Types Packs/Day Years Used Date Smoking Tobacco: Never Assessed Sex and Gender Information Value Date Recorded Sex Assigned at Not on file 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
--- OUTSIDE RECORDS SUMMARY | 2025-04-09 13:06 | XMS_ITS | Encounter Summary ---
Author Organization [facility] Address [address] [place] [address] Care Team Providers Care Switchboard Operator Supervisor Name Role Phone Srinivasa Anderson MD Primary Care Provider Encounter Details Date Type Department Care Team (Latest Contact Info) Description 09/01/2002 Outpatient Historical [facility] Imaging Services 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
--- OUTSIDE RECORDS SUMMARY | 2025-04-09 13:06 | XMS_ITS | Encounter Summary ---
Author Organization [facility] Address [address] [place] [address] Care Team Providers Care Fourth Mate Name Role Phone Srinivasa Anderson MD Primary Care Provider [phone] Encounter Details Date Type Department Care Team (Latest Contact Info) Description 06/29/1999 Outpatient Historical [facility] Dermatology- [facility] [place] [address] [place] [id number] Zoltan Mahoney MD NO ADDRESS ON FILE Actinic keratosis (Primary Dx); Malig amado skin arm; Inflamed seborr keratos Social History Tobacco Use Types Packs/Day Years Used Date Smoking Tobacco: Never Assessed Sex and Gender Information Value Date Recorded Sex Assigned at Not on file Legal Sex Male 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
--- NOTE | 2025-04-09 13:24 | XR_ITS ---
WS: [id number] Portable AP upright chest, 04/09/2025 Clinical Data: dyspnea/cough Comparison: Portable chest, 09/02/2024 Findings: No nodules or masses are seen. There is a small right pleural effusion. The heart is enlarged. There is an artificial cardiac valve. The pulmonary vascularity is not increased. No pneumonia or pneumothorax is seen. The aortic arch and descending thoracic aorta show calcification. XR/XR chest 1V portable [id number] Impression: 1. Small right pleural effusion. 2. Cardiomegaly, atherosclerosis and artificial cardiac valve.
--- NOTE | 2025-04-09 13:24 | ECG_ITS ---
[facility] Test Date: 2025-04-09 Pat Name: Moiz Hernandez Department: Room: Gender: Male Telecommunications Operator: : 1935 Requested By: Basilio Davis Order Number: [id number] Reading MD: ABE SALEEM Measurements Intervals [place] Rate: 59 P: 0 CO: 0 QRS: 200 QRSD: 170 T: 93 QT: 499 QTc: 498 Interpretive Statements ELECTRONIC VENTRICULAR PACEMAKER ABNORMAL RHYTHM ECG Compared to ECG 02/18/2025 13:11:58 No significant changes Electronically Signed On 04-13-2025 12:09:39 PICKER BOX OPERATOR by ABE SALEEM [email or web address]
[2025-04-09 13:33] VITALS: BP 120/60; PULSE 64; O2SAT 99
[2025-04-09 13:35] LABS: Hematocrit 33.9 % (37-53); Hemoglobin 10.90 g/dL (11.27-16.99); Mean Corpuscular HGB Conc 32.2 g/dL (30-55); Mean Corpuscular Hemoglobin 29.1 pg (27-33); Mean Corpuscular Volume 90.4 fl (82-101); Nucleated Red Blood Cells % 0.3 %; Platelet Count 137 10^3/cmm (157-399); Red Blood Count 3.75 10^6/uL (3.85-5.65); White Blood Count 5.73 10^3/uL (3.29-11.43)
[2025-04-09 13:42] LABS: Glucose Urine UA Negative (Normal); Nitrate Urine Negative (Negative); Specific Gravity, Urine 1.012 (1.005-1.030)
[2025-04-09 13:45] LABS: Add Urine Microscopic? YES
--- NOTE | 2025-04-09 13:54 | CTR_ITS ---
PROCEDURE INFORMATION: Exam: CT Head Without Contrast Exam date and time: 04/09/2025 2:02 PM Age: 89 years old Clinical indication: Injury or trauma; Other: Not specified; Blunt trauma (contusions or hematomas); Loss of consciousness unknown TECHNIQUE: Imaging protocol: Computed tomography of the head without contrast. Radiation optimization: All CT scans at this facility use at least one of these dose optimization techniques: automated exposure control; mA and/or kV adjustment per patient size (includes targeted exams where dose is matched to clinical indication); or iterative reconstruction. COMPARISON: CT head wo con* [id number] 07/02/2022 10:35 AM RADIATION DOSE METRICS: Total DLP (mGy-cm): 1097.4 FINDINGS: Brain: No acute intra-axial hemorrhage. No masses. Normal garcia-white matter differentiation. No midline shift or mass effect. Severe patchy hypodensity in hemispheric white matter bilaterally most likely due to chronic microangiopathy. There is moderate diffuse cerebral atrophy present, consistent with this patient's age. Atrophy has progressed since the last exam. Cerebral ventricles: No ventriculomegaly. Paranasal sinuses: Visualized sinuses are unremarkable. No fluid levels. Mastoid air cells: Visualized mastoid air cells are well aerated. Bones: Unremarkable. No acute fracture. Soft tissues: Unremarkable. CT/CT head wo con* [id number] IMPRESSION: No acute intracranial abnormality.
[2025-04-09 13:57] LABS: Alanine Aminotransferase 49 U/L (0-41); Albumin Level 2.9 g/dL (3.5-5.2); Alkaline Phosphatase 106 U/L (40-130); Anion Gap 18.8 (5-19); Aspartate Amino Transferase 67 U/L (0-40); Blood Urea Nitrogen 40 mg/dL (8-23); Calcium 8.5 mg/dL (8.5-10.5); Carbon Dioxide 27 mmol/L (22-29); Chloride 96 mmol/L (98-107); Globulin 3.5 g/dL (1.3-4.6); Glucose 109 mg/dL (65-115); Osmolality Calculated 296 mOsm/kg (285-295); Potassium 3.8 mmol/L (3.5-5.1); Sodium 138 mmol/L (136-145); Total Protein 6.4 g/dL (6.6-8.7)
--- NOTE | 2025-04-09 14:36 | W.ED.GENADLT ---
HPI - General Adult General: Chief complaint: General Medical Stated complaint: abn labs (sent by lesa) Time Seen by Provider: 04/09/25 13:24 History of Present Illness: 89-year-old male presents emergency room had abnormal labs and a persistent rash. He said multiple falls at home. He sees primary care doctor yesterday had some lab work done there were some abnormalities. We have been deleting some of his medications trying to see if those are precipitating this his systemic rash that he has. He was previously on Lasix now he is on Bumex. Said multiple falls. Some bruising on his right denominational is not on any anticoagulants there is no loss consciousness. He is otherwise awake and alert. He is currently on Augmentin for a resolving wound on his right lower leg. It is not been draining it was previously. They have been adjusting his medications in an attempt to eliminate his rash. I talked to his primary care doctor he had seen dermatology had a biopsy done and they felt it was a drug eruption. His son brought in medications and currently his only medications are Augmentin hydrocodone potassium supplement and Bumex. All the other medications he previously been taking are I have been put on hold. The Bumex was started to substitute for Lasix thinking that there may be a cross reaction from the sulfa allergy causing the drug eruption. Associated symptoms: Reports dyspnea; Deny chest pain or rash Related Data Home Medications ?Medication ?Instructions ?Recorded ?Confirmed acetaminophen 325 mg tablet 325 mg PO QID PRN Pain 01/24/24 04/09/25 (Tylenol) tamsulosin 0.4 mg capsule 0.4 mg PO DAILY 01/24/24 04/09/25 Held on 03/31/25. Instructions: Home Medication placed on hold at Doctor's office losartan 25 mg tablet 25 mg PO QDAY 03/31/25 04/09/25 Held on 03/31/25. Instructions: Home Medication placed on hold at Doctor's office metolazone 2.5 mg tablet 2.5 mg PO QDAY 03/31/25 04/09/25 Held on 03/31/25. Instructions: Home Medication placed on hold at Doctor's office doxepin 10 mg capsule 10 mg PO BEDTIME 04/09/25 04/09/25 dupilumab 300 mg/2 mL subcutaneous 300 mg SUBCUT Q7D 04/09/25 04/09/25 pen injector (ISISixvChatter) leflunomide 10 mg tablet 10 mg PO DAILY 04/09/25 04/09/25 omeprazole 40 mg capsule,delayed 40 mg PO QAM 04/09/25 04/09/25 release prednisone 5 mg tablet 5 mg PO DAILY 04/09/25 04/09/25 tadalafil 5 mg tablet 5 mg PO DAILY 04/09/25 04/09/25 trazodone 100 mg tablet 100 mg PO BEDTIME 04/09/25 04/09/25 Previous Rx's ?Medication ?Instructions ?Recorded blood sugar diagnostic (Contour #[id number] ea 05/18/22 Next Test Strips) clobetasol 0.05 % topical cream 1 applic topical BID 2 weeks #45 01/16/25 grams furosemide 40 mg tablet (Lasix) 40 mg PO QAM #30 tabs 03/08/25 Held on 03/31/25. Instructions: Home Medication placed on hold at Doctor's office potassium chloride 20 mEq 20 meq PO QDAY #60 tabs 03/31/25 tablet,extended release amoxicillin 500 mg-potassium 1 tab PO TID #30 tabs 04/05/25 clavulanate 125 mg tablet (Augmentin) bumetanide 2 mg tablet 2 mg PO BID #30 tabs 04/05/25 hydrocodone 5 mg-acetaminophen 325 1 tab PO Q8H PRN pain 2 weeks #30 04/08/25 mg tablet tabs Allergies Allergy/AdvReac Type Severity Reaction Status Date / Time Sulfa (Sulfonamide Allergy rash Verified 04/02/25 11:05 Antibiotics) Review of Systems Const: Denies: fever(s) or chills Card: Reports: swelling of feet/ankles, dyspnea on exertion and orthopnea; Denies: chest pain Resp: Reports: dyspnea, non-productive cough and chest congestion GI: Denies: abdominal pain : Denies: dysuria, urinary frequency or urinary urgency Musc: Denies: neck pain or back pain Skin/Breast: Denies: rash PFSH ED PFSH: Medical History Drug eruption Polyarthralgia Positive antinuclear antibody Primary Sjogren's syndrome History of transcatheter aortic valve replacement (TAVR) History of colon polyps Impairment of balance Sleeplessness Left inguinal hernia Urinary hesitancy Nocturia more than twice per night Change in stool habits Abdominal discomfort Hx of basal cell carcinoma Allergic rhinitis Chronic neck pain Type 2 diabetes mellitus Diet managed Chronic anticoagulation INR goal 2-3 Hx pulmonary embolism Hypertension Surgical History History of inguinal hernia repair History of mitral valve repair History of colonoscopy History of esophagogastroduodenoscopy Hx of cataract surgery Family History Other CAD (coronary artery disease) Cancer Diabetes Heart attack Hyperlipidemia Hypertension Rheumatoid arthritis Stroke Denies family history of Lupus Chronic kidney disease (CKD) Social History Smoking and tobacco/nicotine status: former use of tobacco/nicotine Quit status (tobacco/nicotine): has quit using Former quit date comment: over 40 years ago Alcohol intake: current Alcohol intake frequency: few times a week Substance/Drug Use: never Physical Exam Const: COMMON NORMALS: no acute distress GENERAL APPEARANCE: cooperative and comfortable ORIENTATION/CONSCIOUSNESS: Yes awake, Yes oriented to person, Yes oriented to place and Yes oriented to time HENMT: COMMON NORMALS: normocephalic, atraumatic and hearing grossly normal bilaterally HEAD & SCALP: normocephalic and atraumatic Resp: COMMON NORMALS: normal respiratory effort, No retractions, No use of accessory muscles and clear to auscultation bilaterally AUSCULTATION: clear to auscultation bilaterally Cardio: COMMON NORMALS: regular rate, regular rhythm and No murmurs present (Cardio) RATE: regular rate RHYTHM: regular rhythm GI: COMMON NORMALS: Soft to palpation and No hepatosplenomegaly present AUSCULTATION: Yes normoactive bowel sounds PALPATION: Yes Soft to palpation, No Tenderness to palpation present (GI), No Guarding due to palpation present (GI) and Yes No hepatosplenomegaly present Extremity: COMMON NORMALS: normal to inspection, capillary refill normal, no clubbing, cyanosis or edema, no calf tenderness and no pedal edema Neuro: SENSORIUM/ORIENTATION: Yes oriented to person, Yes oriented to place and Yes oriented to time Skin: OTHER: Systemic erythematous rash raised nonpruritic no vesicles more concentrated on the torso and upper extremities less on the lower extremities Course Vital Signs: Vital signs: Vital Signs Temperature 97.0 F L 04/12/25 00:00 Pulse Rate 60 04/12/25 04:00 Respiratory Rate 20 H 04/12/25 04:00 Blood Pressure 97/56 04/12/25 04:00 Pulse Oximetry 95 04/12/25 04:00 Oxygen Delivery Me thod Room Air 04/12/25 04:00 MDM - General Adult Medical Decision Making Medical decision making Social determinants: Age generalized weakness complicated medical history I reviewed the patient's medical record. I reviewed the patient's current home meds. Alternate historians: Son and daughter present in the department. Discussed with patient's primary care provider Differential diagnosis: Exacerbation congestive heart failure, pneumonia, medication induced vasculitis Lab Review: Labs show acute on chronic renal failure with slight worsening from his baseline creatinine. Today is at 1.9 appears to have a baseline of around 1 3. Acute on worsening chronic kidney disease he is mildly anemic at 10.9 however this appears to be chronic as well. Mild thrombocytopenia which is also chronic. AST 67 ALT 49 BNP 7800 flu COVID and RSV are negative urine does not show any signs of infection dig level 0.3 Imaging:Chest x-ray hyperinflation increased pulmonary vasculature cardiomegaly small pleural effusion which appears to be chronic compared to previous chest x-ray. Assessment of risk Level of risk: High Hospitalization considerations: Admit for failure of outpatient therapy for congestive heart failure with worsening as well as acute on chronic kidney injury Reexamination: Unchanged Assessment and plan: Labs and imaging reviewed. Patient has progressively worsening congestive heart failure. They have been trying to eliminate multiple medications to find the source of his rash which has been seen by dermatology biopsied and was felt to be drug-related rash. It has improved some since he switched from Lasix to Bumex but his heart failure seems to be worsening based on his symptoms. Discussed with hospitalist will admit. Interestingly he still has a dig level of 0.3 this son was able to bring medications for us and he is only currently taking Augmentin hydrocodone potassium supplement and Bumex has not been taking his dig for several days now. Was given a low dose of Lasix in the emergency room. Orders written for admission discussed with hospitalist service. Lab Data 04/12/25 03:00 04/12/25 03:00 Radiology Impressions Chest X-Ray 04/09/25 13:24 Impression: 1. Small right pleural effusion. 2. Cardiomegaly, atherosclerosis and artificial cardiac valve. Head CT 04/09/25 13:54 IMPRESSION: No acute intracranial abnormality. Venous Duplex 04/10/25 19:07 IMPRESSION: No evidence of deep vein thrombosis. Laboratory Results WBC 5.59 10^3/uL (3.29-11.43) 04/11/25 04:03 RBC 3.33 10^6/uL (3.85-5.65) L 04/11/25 04:03 Hgb 9.30 g/dL (11.27-16.99) L 04/11/25 04:03 Hct 30.3 % (37-53) L 04/11/25 04:03 MCV 91.0 fl (82-101) 04/11/25 04:03 MCH 27.9 pg (27-33) 04/11/25 04:03 MCHC 30.7 g/dL (30-55) 04/11/25 04:03 RDW 19.3 % (12.1-15.1) H 04/11/25 04:03 Plt Count 105 10^3/cmm (157-399) L 04/11/25 04:03 MPV 11.6 fL (7.4-10.4) H 04/11/25 04:03 Neut % (Auto) 65.0 % 04/11/25 04:03 Lymph % (Auto) 9.7 % 04/11/25 04:03 Walsh % (Auto) 5.5 % 04/11/25 04:03 Eos % (Auto) 18.2 % 04/11/25 04:03 Baso % (Auto) 0.5 % 04/11/25 04:03 Neut # (Auto) 3.63 10^3/uL (1.8-7.7) 04/11/25 04:03 Lymph # (Auto) 0.5 10^3/uL (0.8-4.8) L 04/11/25 04:03 Walsh # (Auto) 0.3 10^3/uL (0.2-0.9) 04/11/25 04:03 Eos # (Auto) 1.0 10^3/uL (0.0-0.8) H 04/11/25 04:03 Baso # (Auto) 0.0 10^3/uL (0.0-0.1) 04/11/25 04:03 Nucleated RBC % (auto) 0.5 % 04/11/25 04:03 Nucleated RBCs # 0.0 /100WBC 04/11/25 04:03 Sodium 140 mmol/L (136-145) 04/11/25 04:03 Potassium 3.3 mmol/L (3.5-5.1) L 04/11/25 04:03 Chloride 101 mmol/L (98-107) 04/11/25 04:03 Carbon Dioxide 27 mmol/L (22-29) 04/11/25 04:03 Anion Gap 15.3 (5-19) 04/11/25 04:03 BUN 42 mg/dL (8-23) H 04/11/25 04:03 Creatinine 1.9 mg/dL (0.7-1.2) H 04/11/25 04:03 GFR Calculation Not Reportable 04/11/25 04:03 Glucose 112 mg/dL (65-115) 04/11/25 04:03 Estimat Average Glucose 137 04/09/25 13:31 Hemoglobin A1c 6.4 % (4.0-6.0) H 04/09/25 13:31 Calculated Osmolality 301 mOsm/kg (285-295) H 04/11/25 04:03 Calcium 8.6 mg/dL (8.5-10.5) 04/11/25 04:03 Magnesium 2.2 mg/dL (1.7-2.3) 04/11/25 04:03 Total Bilirubin 0.9 mg/dL (0.15-1.2) 04/11/25 04:03 AST 53 U/L (0-40) H 04/11/25 04:03 ALT 39 U/L (0-41) 04/11/25 04:03 Alkaline Phosphatase 88 U/L (40-130) 04/11/25 04:03 NT-Pro-B Natriuret Pep 7800 pg/mL (0-450) H 04/09/25 13:31 Total Protein 6.0 g/dL (6.6-8.7) L 04/11/25 04:03 Albumin 3.0 g/dL (3.5-5.2) L 04/11/25 04:03 Globulin 3.0 g/dL (1.3-4.6) 04/11/25 04:03 Triglycerides 130 mg/dL (0-150) 04/09/25 13: Cholesterol 100 mg/dL (0-200) 04/09/25 13:31 LDL Cholesterol, Calc 51 mg/dL (50-129) 04/09/25 13: HDL Cholesterol 23 mg/dL (60-100) L 04/09/25 13:31 LDL/HDL Ratio 2.22 RATIO (0.00-3.22) 04/09/25 13: Cholesterol/HDL Ratio 4.35 mg/dL (1.0-5.00) 04/09/25 13:31 Urine Color Yellow (Yellow) 04/09/25 13:25 Urine Appearance Clear (CLEAR) 04/09/25 13:25 Urine pH 5.0 (5-7) 04/09/25 13:25 Ur Specific Lowgap 1.012 (1.005-1.030) 04/09/25 13:25 Urine Protein Negative (Negative) 04/09/25 13:25 Urine Glucose (UA) Negative (Normal) 04/09/25 13:25 Urine Ketones Negative (Negative) 04/09/25 13:25 Urine Blood Negative (Negative) 04/09/25 13:25 Urine Nitrate Negative (Negative) 04/09/25 13:25 Urine Bilirubin Negative (Negative) 04/09/25 13:25 Urine Urobilinogen 1.0 mg/dL (Negative) 04/09/25 13:25 Ur Leukocyte Esterase Negative (Negative) 04/09/25 13:25 Urine RBC 0-2 /hpf (0-2) 04/09/25 13:25 Urine WBC 0-5 /hpf (0-5) 04/09/25 13:25 Ur Squamous Epith Cells 0-5 /hpf (0-5) 04/09/25 13:25 Amorphous Sediment Not Reportable 04/09/25 13:25 Urine Bacteria None seen /hpf (NONE) 04/09/25 13:25 Hyaline Casts 2.05 /lpf 04/09/25 13:25 Digoxin 0.3 ng/mL (0.6-1.2) L 04/09/25 13:31 Influenza A (PCR) Negative (Negative) 04/09/25 13:34 Influenza Type B (PCR) Negative (Negative) 04/09/25 13:34 RSV (PCR) Negative (Negative) 04/09/25 13:34 SARS-CoV-2 (PCR) Negative (Negative) 04/09/25 13:34 All radiology interpretation(s) finalized by discharge Discharge Plan Discharge Patient Disposition: Placed in Observation Admit Provider: Jorgito Andrews Clinical Impression: Chronic diastolic congestive heart failure, JOSSELYN (acute kidney injury), S/P TAVR (transcatheter aortic valve replacement), Presence of Watchman left atrial appendage closure device, Type 2 diabetes mellitus, Drug eruption, Elevated liver enzymes Coding Level of Care Code ED Pattern Duplicator for Steffany Redmond
--- NOTE | 2025-04-09 14:40 | PC.PHAR ---
Pts family brought 4 rx bottles to show the only medications pt is taking currently. All other medications are on hold so I did not remove them from the chart. I documented last fill date and day supply with on hold note in pharmacy notes.
[2025-04-09 14:46] LABS: Respiratory Syncytial Virus Ce NEGATIVE (Negative); SARS-CoV-2 PCR NEGATIVE (Negative)
[2025-04-09 15:44] VITALS: BP 117/48; PULSE 60; O2SAT 93
[2025-04-09 15:56] LABS: Digoxin 0.3 ng/mL (0.6-1.2)
[2025-04-09 16:06] LABS: NT Pro B Type Natriuretic Pept 7800 pg/mL (0-450)
[2025-04-09 16:51] VITALS: BP 123/62; PULSE 60; O2SAT 98
[2025-04-09 17:31] VITALS: BMI 24.3
[2025-04-09 18:12] VITALS: BP 120/54; PULSE 61; RESP 15; TEMP 36.4; O2SAT 97
--- NOTE | 2025-04-09 18:22 | P.HP_ITS ---
<Statement entered by Jorgito Andrews MD - 04/09/25 21:13> Patient case discussed with ED provider and reviewed and discussed with [facility] including E&M. Providers/Chief Complaint 2 Admitting Physician: Jorgito Andrews Primary Care Provider: Hu Fu MD Chief Complaint: abn labs (sent by lesa) History of Present Illness Moiz Hernandez is a 89 year old male w/ pmhx of HTN, DM2(diet managed), BPH, insomnia, rheumatoid arthritis, s/p TAVR(2022), MVP, pacemaker, CHF, and abd rash that's spreading to face since December,. Patient presents today from PCP office via POV with c/o abnormal labs and persistent rash, and increased weakness w/ associated falls. He complains of multiple falls at home within the last week-a bruise and open wound noted to right gnosticist(not on long- term anticoagulation). Patient noted to be following up with dermatology outpatient for rash to abd. A biopsy was completed and the merchandise handler felt it was a drug eruption causing it. He was recently seen by PCP and stopped on his regular home medications due to them possibly participating in systematic abd rash. Also, he was switched to Bumex in place of Lasix for suspected cross reaction from the sulfa allergy causing the drug eruption. Patient resting in bed during my evaluation, daughter noted to be at bedside. He states the rash on his stomach feels hot like prior, itchy, and dry. He attempted to alleviate the pain with lotion at home as well as following up with dermatology and PCP. There is a wound to right lower thompson noted, patient was started on Augmentin by PCP. No drainage noted. Patient denies headache, fevers, chest pain, palpitations, N/V/D/C, changes to urinary and bowel habits. Patient to be admitted under observation status with hospitalist services for further medical management and care. While in the ED a CBC, CMP was obtained, reviewed, and results as follows: RBC 3.75, Hgb 10.9, HCT 33.9, RDW 19.3, MPV 11, Plt 137. Na 138, K 3.8, Osmo 296, glucose 109, Infection Control Coordinator 1.9, BUN 40, alk phos 106. AST 67, ALT 49, bilirubin 1.0. BNP 7800. Albumin 2.9, protein 6.4, calcium 8.5. There were no medications administered to patient while in ED. Review of Systems 2 General: Reports: 10 or more systems reviewed and unremarkable except in HPI and below Medications/Allergies Home Medications ?Medication ?Instructions ?Recorded ?Confirmed ?Last Taken ?Type blood sugar diagnostic (Contour #[phone] ea 05/18/22 Unknown Rx Next Test Strips) acetaminophen 325 mg tablet 325 mg PO QID PRN Pain 08/1304/09/25 09/02/24 History (Tylenol) tamsulosin 0.4 mg capsule 0.4 mg PO DAILY 01/24/2402/12/25 History Held on 03/31/25. Instructions: Home Medication placed on hold at Doctor's office clobetasol 0.05 % topical cream 1 applic topical BID 2 weeks #45 01/16/25 04/09/25 02/11/25 Rx grams furosemide 40 mg tablet (Lasix) 40 mg PO QAM #30 tabs 03/08/25 04/09/25 Unknown Rx Held on 03/31/25. Instructions: Home Medication placed on hold at Doctor's office losartan 25 mg tablet 25 mg PO QDAY 03/31/2504/09 Unknown History Held on 03/31/25. Instructions: Home Medication placed on hold at Doctor's office metolazone 2.5 mg tablet 2.5 mg PO QDAY 03/31/2503/22 Unknown History Held on 03/31/25. Instructions: Home Medication placed on hold at Doctor's office potassium chloride 20 mEq 20 meq PO QDAY #60 tabs 03/2204/09/25 04/09/25 Rx tablet,extended release amoxicillin 500 mg-potassium 1 tab PO TID #30 tabs 04/09/25 04/09/25 Rx clavulanate 125 mg tablet (Augmentin) bumetanide 2 mg tablet 2 mg PO BID #30 tabs 2 5 04/09/25 04/09/25 Rx hydrocodone 5 mg-acetaminophen 325 1 tab PO Q8H PRN pa in 2 weeks #30 04/08/25 04/09/25 Unknown Rx mg tablet tabs doxepin 10 mg capsule 10 mg PO BEDTIME 04/09/25 Unknown History dupilumab 300 mg/2 mL subcutaneous 300 mg SUBCUT Q7D 1 06/10/24 04/09/25 Unknown History pen injector (Dupixent) leflunomide 10 mg tablet 10 mg PO DAILY 04/09/2503/22 Unknown History omeprazole 40 mg capsule,delayed 40 mg PO QAM 04/09/25 04/09/25 Unknown History release prednisone 5 mg tablet 5 mg PO DAILY 04/09/2504/09 Unknown History tadalafil 5 mg tablet 5 mg PO DAILY 04/09/2504/09 Unknown History trazodone 100 mg tablet 100 mg PO BEDTIME 04/09/25 1 06/10/24 Unknown History Allergies Allergy/AdvReac Type Severity Reaction Status Date / Time Sulfa (Sulfonamide Allergy rash Verified 04/02/25 11:05 Antibiotics) PFSH Acute 2 PFSH: Medical History Drug eruption Polyarthralgia Positive antinuclear antibody Primary Sjogren's syndrome History of transcatheter aortic valve replacement (TAVR) History of colon polyps Impairment of balance Sleeplessness Left inguinal hernia Urinary hesitancy Nocturia more than twice per night Change in stool habits Abdominal discomfort Hx of basal cell carcinoma Allergic rhinitis Chronic neck pain Type 2 diabetes mellitus Diet managed Chronic anticoagulation INR goal 2-3 Hx pulmonary embolism Hypertension Surgical History History of inguinal hernia repair History of mitral valve repair History of colonoscopy History of esophagogastroduodenoscopy Hx of cataract surgery Family History Other CAD (coronary artery disease) Cancer Diabetes Heart attack Hyperlipidemia Hypertension Rheumatoid arthritis Stroke Denies family history of Lupus Chronic kidney disease (CKD) Social History Smoking and tobacco/nicotine status: former use of tobacco/nicotine Quit status (tobacco/nicotine): has quit using Former quit date comment: over 40 years ago Alcohol intake: current Alcohol intake frequency: few times a week Substance/Drug Use: never Vitals/I&O/Wt Last Vital Signs Temp 97.6 F 04/09/25 18:12 Pulse 61 04/09/25 18:12 Resp 15 04/09/25 18:12 BP 120/54 04/09/25 18:12 Pulse Ox 97 04/09/25 18:12 O2 Del Method Room Air 04/09/25 18:12 04/09/25 04/09/25 04/09/25 06:59 14:59 22:59 Intake Total 240 / 240 Balance 240 / 240 Weight last 48 hrs Weight 90.718 kg Physical Exam 2 Narrative: General: A&Ox4 , resting in bed on RA. Daughter noted to be at bedside. No apparent distress HEENT: Normo-cephalic, atraumatic, grossly unremarkable exam Cardio: NSR, normal S1-S2 w/o any murmurs, rubs, or gallops and JVD normal Respiratory: Diminished to bilateral upper and lower lobes on auscultation GI: Abd soft, non-tender, non-distended, normo-active bowel sounds present Neuro: Moves all extremities, no sensory deficits, Normal speech Behavior: Appropriate and cooperative Extremities: 3+ edema to LLE, adequate palpable pulses. No clubbing, cyanosis. Skin: Diffuse maculopapular erythematous rash over trunk and extremities Data 04/09/25 13:31 04/09/25 13:31 A&P Assessment and plan 1. Chronic diastolic congestive heart failure: - Last Echo 09/02/24 reviewed: Normal left ventricular size, systolic function and wall thickness, with no regional wall motion abnormalities. Left ventricular ejection fraction is estimated at 60 %. Grade III/IV diastolic dysfunction (restrictive filling pattern), severely elevated filling pressures. Grade IV/IV diastolic dysfunction(irreversible restrictive filling pattern), severely elevated filling pressures. Moderately increased right atrial size. Severely thickened mitral valve. Severe mitral annular calcification. Normal prosthetic aortic valve sitting in a normal position without valvular and paravalvular leak.Thickened tricuspid valve. Severe tricuspid valve regurgitation. There is no pericardial effusion. Right atrial pressure is around 10 mm of mercury. - 04/09: EKG: Paced, no ST changes, QRS 170, QTc 498, HR 59 - BNP 7800 - Patient c/o increased exertional dyspnea, and increased weakness - Strict I's and O's - Fluid restriction 1,200ml - Daily weights - cardiac diet - Bumex 1 mg IVP - Albumin 25 mg IV - Continuous cardiac monitoring 2. S/P TAVR (transcatheter aortic valve replacement): 3. JOSSELYN (acute kidney injury): - Infection Control Coordinator 1.9, BUN 40 - Keep MAP >65 - Monitor K and Phos closely. - Strict I&O's - Avoid nephrotoxins - Cmp dly 4. Transaminitis: - AST 67, ALT 49, bilirubin 1 - Avoid hepatotoxic agents -Monitor CMP daily 5. Increased fatigable muscle weakness: - Patient has increased weakness with 2 falls within 1 week - PT and OT to evaluate 6. Multiple falls: - As per above 7. Rash: - Diffuse maculopapular erythematous rash over trunk and extremities - As per above. Following PCP, dermatology outpatient w/ recent medication changes. 8. Drug eruption: - All medications stopped as per PCP. Bumex ordered in place of Lasix as patient has sulfa allergy 9. Gastroesophageal reflux disease without esophagitis: ? Protonix 40 mg p.o. twice daily 10. Type 2 diabetes mellitus without complication, without long-term current use of insulin: - Patient manages with diet - A1c ordered, pending. Plan: CODE STATUS: Full code GI prophylaxis: Protonix 40 mg p.o. twice daily VTE prophylaxis: Heparin 5000 U SQ twice daily PDMP PDMP Reviewed: Not Reviewed Attestations 2 Medical Necessity Statement*: Admitted under observation status. Given complexity of patient's presentation, CHF, co-morbid conditions, and required intensity of treatment, a hospitalization under two midnights is anticipated. Coding Level of Care Code Acute Code for [facility] Fwd Diagnoses Chronic diastolic congestive heart failure I50.32 Heart failure type: diastolic S/P TAVR (transcatheter aortic valve replacement) Z95.2 JOSSELYN (acute kidney injury) N17.9 Transaminitis R74.01 Increased fatigable muscle weakness M62.89 Multiple falls R29.6 Rash R21 Drug eruption L27.0 Gastroesophageal reflux disease without esophagitis K21.9 Esophagitis presence: without esophagitis Type 2 diabetes mellitus without complication, without long-term current use of insulin E11.9 Diabetes mellitus fci insulin use: without adjunct faculty for medical terminology use Diabetes mellitus complication status: without complication
[2025-04-09 18:35] LABS: Cholesterol 100 mg/dL (0-200); HDL Cholesterol 23 mg/dL (60-100); Triglycerides 130 mg/dL (0-150)
[2025-04-09 19:37] LABS: Estmated Average Glucose 137; Hemoglobin A1C 6.4 % (4.0-6.0)
[2025-04-09 20:00] VITALS: BP 130/62; PULSE 61; RESP 21; TEMP 36.6; O2SAT 98
[2025-04-09] MEDS: albumin 25 G/100 ML BAG 60 G IV (20:06)
[2025-04-09] MEDS: heparin 5,000 unit/mL INJ 1 mL 5000 UNIT SUBCUT (20:08)
[2025-04-09] MEDS: bumetanide 0.25 mg/mL SDV 4 mL 1 MG IVP (21:27)
[2025-04-10] VITALS (7 sets, daily range): BP systolic 89–116; BP diastolic 40–68; PULSE 60–63; RESP 17–27; TEMP 36.1–37; O2SAT 91–95
[2025-04-10 03:27] LABS: Hematocrit 33.7 % (37-53); Hemoglobin 10.50 g/dL (11.27-16.99); Mean Corpuscular HGB Conc 31.2 g/dL (30-55); Mean Corpuscular Hemoglobin 28.5 pg (27-33); Mean Corpuscular Volume 91.3 fl (82-101); Nucleated Red Blood Cells % 0 %; Platelet Count 140 10^3/cmm (157-399); Red Blood Count 3.69 10^6/uL (3.85-5.65); White Blood Count 5.34 10^3/uL (3.29-11.43)
[2025-04-10 03:39] LABS: Alanine Aminotransferase 41 U/L (0-41); Albumin Level 3.0 g/dL (3.5-5.2); Alkaline Phosphatase 93 U/L (40-130); Blood Urea Nitrogen 41 mg/dL (8-23); Calcium 8.4 mg/dL (8.5-10.5); Carbon Dioxide 29 mmol/L (22-29); Chloride 96 mmol/L (98-107); Globulin 3.2 g/dL (1.3-4.6); Glucose 104 mg/dL (65-115); Magnesium 2.2 mg/dL (1.7-2.3); Osmolality Calculated 294 mOsm/kg (285-295); Sodium 137 mmol/L (136-145); Total Protein 6.2 g/dL (6.6-8.7)
[2025-04-10 03:50] LABS: Anion Gap 15.3 (5-19); Aspartate Amino Transferase 62 U/L (0-40); Potassium 3.3 mmol/L (3.5-5.1)
--- OUTSIDE RECORDS SUMMARY | 2025-04-10 06:34 | XMS_ITS | Encounter Summary ---
Author Organization [facility] Address [address] [place] [address] Care Team Providers Care Senior Software Developer Name Role Phone Srinivasa Anderson MD Primary Care Provider [phone] Encounter Details Date Type Department Care Team (Latest Contact Info) Description 12/21/2005 Outpatient Historical [facility] [place] [place] [address] Srinivasa Anderson MD [address] [place] [address] Other Malaise and Fatigue (Primary Dx); Other Testicular Hypofunction; Depressive Disorder, not Elsewhere Classified Social History Tobacco Use Types Packs/Day Years Used Date Smoking Tobacco: Never Assessed Sex and Gender Information Value Date Recorded Sex Assigned at Not on file 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
--- OUTSIDE RECORDS SUMMARY | 2025-04-10 06:34 | XMS_ITS | Encounter Summary ---
Author Organization [facility] Address [address] [place] [address] Care Team Providers Care Highway Commissioner Name Role Phone Srinivasa Anderson MD Primary Care Provider [phone] Encounter Details Date Type Department Care Team (Late st Contact Info) Description 03/29/2025 Results Follow-Up [facility] [address] [facility] [address] [place] [phone] Mariela Stone MD [address] [facility] [address] [place] [phone] PACER PROGRAM/EVAL SINGLE LEAD Social History [...] on file Legal Sex Male 6:28 AM BOAT PAINTER Gender Identity Not on file Sexual Orientation Not on file documented as of this encounter Miscellaneous Notes * Result Encounter Note - Mariela Stone MD - 03/29/2025 1:36 PM BOAT PAINTER My interpretation is in agreement with the above documentation. PAINTER documented in this encounter Plan of Treatment Upcoming Encounters Date Type Department Care Team (Late st Contact Info) Description 06/29/2025 8:00 AM CDT Procedure visit [facility] [address] [place] [phone] Mariela Stone MD [address] [place] [phone] 07/08/2025 1:00 PM CDT Office Visit [facility] [address] [place] [phone] Kodak Samuel MD [address] [place] [phone] 03/28/2026 11:00 AM BOAT PAINTER Office Visit [facility] [address] [place] [phone] Dominic Haskins CRNP [address] [place] [phone] Mariela Stone MD [address] [place] [phone] Mayra Mohr NP [address], [address] [place] [phone] documented as of this encounter Visit Diagnoses Not on filedocumented in this encounter Care Teams Highway Commissioner Relationship Specialty Start Date End Date Srinivasa Anderson MD [address] [phone] PCP - General Family Practice 05/18/24 documented as of this encounter
--- OUTSIDE RECORDS SUMMARY | 2025-04-10 06:34 | XMS_ITS | Encounter Summary ---
Author Organization [facility] Address [address] [facility] [place] [address] Care Team Providers Care Bridal Gown Fitter Name Role Phone Srinivasa Anderson MD Primary Care Provider [phone] Encounter Details Date Type Department Care Team (Latest Contact Info) Description 01/16/2007 Outpatient Historical [facility] [place] [place] [address] Srinivasa Anderson MD [address] [place] [address] Other Abnormal Blood Chemistry (Primary Dx); Iatrogenic Pulmonary Embolism and Infarction (CMS/HCC); Other and Unspecified Hyperlipidemia; Other Testicular Hypofunction Social History Tobacco Use Types Packs/Day Years Used Date Smoking Tobacco: Never Assessed Sex and Gender Information Value Date Recorded Sex Assigned at Not on file Legal Sex Male 3:08 AM TIP CUTTER Gender Identity Not on file Sexual Orientation Not on file documented as of this encounter Plan of Treatment Not on file documented as of this encounter Visit Diagnoses Diagnosis Other abnormal blood chemistry- Primary Iatrogenic pulmonary embolism and infarction (CMS/HCC) Iatrogenic pulmonary embolism and infarction Other and unspecified hyperlipidemia Other testicular hypofunction documented in this encounter Care Teams Bridal Gown Fitter Relationship Specialty Start Date End Date Srinivasa Anderson MD [address] [place] [phone] PCP - General 07/18/04 documented as of this encounter
--- OUTSIDE RECORDS SUMMARY | 2025-04-10 06:34 | XMS_ITS | Encounter Summary ---
Author Organization [facility] Address [address] [place] [address] Care Team Providers Care Medicaid Plan Compliance Director Name Role Phone Srinivasa Anderson MD Primary Care Provider [phone] Encounter Details Date Type Department Care Team (Late st Contact Info) Description 02/17/2025 Lab Requisition [facility] [address] [place] [address] Fran Mancilla, SUPERVISING EDITOR TRAILER [address] [facility] [address] [place] [phone] Shortness of breath Social History Tobacco Use [...] on file Legal Sex Male 6:28 AM LINE TENDER Gender Identity Not on file Sexual Orientation Not on file documented as of this encounter Plan of Treatment Upcoming Encounters Date Type Department Care Team (Late st Contact Info) Description 06/29/2025 8:00 AM CDT Procedure visit [facility] [address] [place] [phone] Mariela Stone MD [address] [place] [phone] 07/08/2025 1:00 PM CDT Office Visit [facility] [address] [place] [phone] Kodak Samuel MD [address] [place] [phone] 03/28/2026 11:00 AM LINE TENDER Office Visit [facility] [address] [place] [phone] Dominic Haskins CRNP [address], [address] [place] [phone] Mariela Stone MD [address] [place] [phone] Mayra oMhr NP [address], [address] [place] [phone] documented as of this encounter Procedures Procedure [...] - 145 mmol/L 02/17/2025 4:47 PM T [facility] POTASSIUM 4.8 3.5 - 5.1 mmol/L 02/17/2025 4:[address] [facility] CHLORIDE 108(H) 98 - 107 mmol/L 02/17/2025 4:[address] [facility] CO2 24 22 - 29 mmol/L 02/17/2025 4:[address] [facility] CALCIUM 9.0 8.8 - 10.2 mg/dL 02/17/2025 4:[address] [facility] BUN 60(H) 8 - 23 mg/dL 02/17/2025 4:[address] [facility] CREATININE 1.76(H) 0.67 - 1.17 mg/dL 02/17/2025 4:[address] [facility] Comment:The GFR result is no t clinically significant on patients <18 or >70 years of age. GLUCOSE 144(H) 74 - 99 mg/dL 02/17/2025 4:[address] [facility] TOTAL PROTEIN 7.5 6.4 - 8.3 g/dL 02/17/2025 4:[address] [facility] ALBUMIN 3.9 3.5 - 5.2 g/dL 02/17/2025 4:[address] [facility] BILIRUBIN TOTAL 0.8 0.0 - 1.0 mg/dL 02/17/2025 4:[address] [facility] ALKALINE PHOSPHATASE 104 40 - 129 U/L 02/17/2025 4:[address] [facility] AST 35 10 - 50 U/L 02/17/2025 4:[address] [facility] ALT 51(H) <=50 U/L 02/17/2025 4:47 PM CDT [facility] GFR 37 mL/min/1. 73 sq meter 02/17/2025 4:47 PM CDT [facility] Comment:eGFR calculated with 2020 CKD-EPI equation. Vegetarian diet, extremely high or low muscle mass, and may affect results. Cystatin C with Glomerular Filtration Rate is a suitable alternative for these patients. ANION GAP 12 9 - 20 mmol/L 02/17/2025 4:47 PM CDT [facility] Blood Collection / Unknown 02/17/2025 2:37 PM CDT 02/17/2025 4:03 PM CDT us Fran Mancilla NP CHEMISTRY ORDERABLES Final Resu lt [facility] CLIA # [id number] [address] [place] [address] * (ABNORMAL) CBC WITH DIFFERENTIAL (02/17/2025 2:37 PM CDT) Pathologist [facility] WBC 9.4 4.8 - 10.8 K/uL 02/17/2025 4:20 PM CDT [facility] RBC 3.77(L) 4.60 - 6.20 M/uL 02/17/2025 4:20 PM CDT [facility] HEMOGLOBIN 10.6(L) 14.0 - 18.0 g/dL 02/17/2025 4:20 PM CDT [facility] HEMATOCRIT 34.7(L) 41.0 - 53.0 % 02/17/2025 4:20 PM CDT [facility] MCV 92.0 84.0 - 103.0 fL 02/17/2025 4:20 PM CDT [facility] MCH 28.1 27.0 - 34.0 pg 02/17/2025 4:20 PM CDT [facility] MCHC 30.5 30.0 - 35.0 g/dL 02/17/2025 4:[address] [facility] PLATELETS 137(L) 140 - 440 K/uL 02/17/2025 4:[address] [facility] MPV 12.3 8.9 - 12.8 fL 02/17/2025 4:[address] [facility] RDW 19.1(H) 11.0 - 14.5 % 02/17/2025 4:[address] [facility] RDW-STDEV 63.8(H) 37.0 - 54.0 fL 02/17/2025 4:[address] [facility] NEUTROPHILS 83(H) 42 - 75 % 02/17/2025 4:[address] [facility] LYMPHOCYTES 8(L) 24 - 44 % 02/17/2025 4:[address] [facility] MONOCYTES 7 2 - 10 % 02/17/2025 4:[address] [facility] EOSINOPHILS 0 0 - 7 % 02/17/2025 4:[address] [facility] BASOPHILS 0 0 - 1 % 02/17/2025 4:[address] [facility] IMMATURE GRANULOCYTES 2 0 - 2 % 02/17/2025 4:[address] [facility] NEUTROPHIL ABSOLUTE 7.73 2.00 - 8.00 K/uL 02/17/2025 4:[address] [facility] LYMPHOCYTE ABSOLUTE 0.75(L) 1.20 - 4.00 K/uL 02/17/2025 4:[address] [facility] MONOCYTE ABSOLUTE 0.67(H) 0.10 - 0.60 K/uL 02/17/2025 4:[address] [facility] EOSINOPHIL ABSOLUTE 0.01 0.00 - 0.70 K/uL 02/17/2025 4:[address] [facility] BASOPHILS ABSOLUTE 0.02 0.00 - 0.20 K/uL 02/17/2025 4:[address] [facility] IMMATURE GRANULOCYTES ABSOLUTE 0.19(H) 0.00 - 0.10 K/uL 02/17/2025 4:20 PM CDT [facility] SMEAR REVIEWED: NA - Not Applicable 02/17/2025 4:20 PM CDT [facility] Blood Collection / Unknown 02/17/2025 2:37 PM CDT 02/17/2025 4:03 PM CDT us Fran Mancilla NP HEMATOLOGY ORDERABLES Final Res ult Performing Organization Address [facility] Co de Phone Number [facility] CLIA # [id number] [address] [place] [address] * (ABNORMAL) BRAIN NATRIURETIC PEPTIDE, BNP OR PROBNP (02/17/2025 2:37 PM CDT) PROBNP, N TERMINAL 5,161(H) 0 - 450 pg/mL 02/17/2025 4:44 PM CDT [facility] Comment: INTERPRETIVE COMMENT based on diagnosis: [...] ORDERABLES Final Resu lt Performing Organization Address [facility]/ZIP Co de Phone Number [facility] CLIA # [id number] [address] [place] [address] documented in this encounter Visit Diagnoses Diagnosis Shortness of breath documented in this encounter Care Teams Medicaid Plan Compliance Director Relationship Specialty Start Date End Date Srinivasa Anderson MD [address] [phone] PCP - General Family Practice 05/18/24 documented as of this encounter
--- OUTSIDE RECORDS SUMMARY | 2025-04-10 06:34 | XMS_ITS ---
Author Organization [facility] Address [address] [address] Care Team Providers Care Tile Presser Name Role Phone Srinivasa Anderson MD Primary Care Provider [phone] Active Problems Problem Noted Date Diagnosed Date [...]
--- OUTSIDE RECORDS SUMMARY | 2025-04-10 06:34 | XMS_ITS | Encounter Summary ---
Author Organization [facility] Address [address] [place] [facility] [place] [address] Care Team Providers Care Eyeglass Frames Polisher Name Role Phone Srinivasa Anderson MD Primary Care Provider [phone] Encounter Details Date Type Department Care Team (Latest Contact Info) Description 04/02/2006 Outpatient Historical [facility] [address] [place] [address] Srinivasa Anderson MD [address] [phone] DM w/o Complication Type I, Uncontrolled (Primary Dx) Social History Tobacco Use Types Packs/Day Years Used Date Smoking Tobacco: Never Assessed Sex and Gender Information Value Date Recorded Sex Assigned at Not on file 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
--- OUTSIDE RECORDS SUMMARY | 2025-04-10 06:34 | XMS_ITS | Encounter Summary ---
Author Organization [facility] Address [address] [place] [address] Care Team Providers Care Logistics Specialist Name Role Phone Srinivasa Anderson MD Primary Care Provider [phone] Encounter Details Date Type Department Care Team (Latest Contact Info) Description 10/19/2005 Outpatient Historical [facility] [place] [address] [place] [address] Srinivasa Anderson MD [address] [place] [address] Other Testicular Hypofunction (Primary Dx) Social History Tobacco Use Types Packs/Day Years Used Date Smoking Tobacco: Never Assessed Sex and Gender Information Value Date Recorded Sex Assigned at Not on file Legal Sex Male 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
--- OUTSIDE RECORDS SUMMARY | 2025-04-10 06:34 | XMS_ITS | Encounter Summary ---
Author Organization [facility] Address [address] [place] [place] [address] Care Team Providers Care Project Intern Name Role Phone Srinivasa Anderson MD Primary Care Provider [phone] Encounter Details Date Type Department Care Team (Latest Contact Info) Description 06/19/2006 Outpatient Historical [facility] [place] [address] [place] [address] Srinivasa Anderson MD [address] [place] [address] Other Testicular Hypofunction (Primary Dx) Social History Tobacco Use Types Packs/Day Years Used Date Smoking Tobacco: Never Assessed Sex and Gender Information Value Date Recorded Sex Assigned at Not on file Legal Sex Male 3:08 AM ASSIGNMENT AGENT Gender Identity Not on file Sexual Orientation Not on file documented as of this encounter Plan of Treatment Not on file documented as of this encounter Visit Diagnoses Diagnosis Other testicular hypofunction- Primary documented in this encounter Care Teams Project Intern Relationship Specialty Start Date End Date Srinivasa Anderson MD [address] [place] [address] PCP - General 07/18/04 documented as of this encounter
--- OUTSIDE RECORDS SUMMARY | 2025-04-10 06:34 | XMS_ITS | Encounter Summary ---
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); Depressive Disorder, not Elsewhere Classified Social History Tobacco Use Types Packs/Day Years Used Date Smoking Tobacco: Never Assessed Sex and Gender Information Value Date Recorded Sex Assigned at Not on file Legal Sex Male 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
--- OUTSIDE RECORDS SUMMARY | 2025-04-10 06:34 | XMS_ITS | Encounter Summary ---
Author Organization [facility] Address [address] [place] [address] Care Team Providers Care Supervisor Leaf [employer] Fabrication Name Role Phone Srinivasa Anderson MD Primary Care Provider [phone] Encounter Details Date Type Department Care Team (Latest Contact Info) Description 11/21/2006 Outpatient Historical [facility] [place] [place] [address] Srinivasa Anderson MD [address] [place] [address] Other Testicular Hypofunction (Primary Dx) Social History Tobacco Use Types Packs/Day Years Used Date Smoking Tobacco: Never Assessed Sex and Gender Information Value Date Recorded Sex Assigned at Not on file Legal Sex Male 3: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
--- OUTSIDE RECORDS SUMMARY | 2025-04-10 06:34 | XMS_ITS | Encounter Summary ---
Author Organization [facility] Address [address] [facility] [place] [address] Care Team Providers Care Hydro Excavation Operator Name Role Phone Srinivasa Anderson MD Primary Care Provider [phone] Encounter Details Date Type Department Care Team (Late st Contact Info) Description 04/02/2006 Outpatient Historical [facility] Social History Tobacco Use Types Packs/Day Years Used Date Smoking Tobacco: Never Assessed Sex and Gender Information Value Date Recorded Sex Assigned at Not on file Legal Sex Male 3:08 AM BORDER MEASURER Gender Identity Not on file Sexual Orientation Not on file documented as of this encounter Plan of Treatment Not on file documented as of this encounter Visit Diagnoses Not on filedocumented in this encounter Care Teams Hydro Excavation Operator Relationship Specialty Start Date End Date Srinivasa Anderson MD [address] [place] [address] PCP - General 07/18/04 documented as of this encounter
--- OUTSIDE RECORDS SUMMARY | 2025-04-10 06:34 | XMS_ITS | Encounter Summary ---
Author Organization [facility] Address [address] [facility] [place] [address] Care Team Providers Care Complex Manager Name Role Phone Srinivasa Anderson MD Primary Care Provider [phone] Encounter Details Date Type Department Care Team (Latest Contact Info) Description 09/04/2005 Outpatient Historical [facility] [place] [place] [address] Srinivasa Anderson MD [address] [place] [address] Unspecified Essential Hypertension (Primary Dx); Other and Unspecified Hyperlipidemia; Abdominal Pain, Unspecified Site; Depressive Disorder, not Elsewhere Classified Social History Tobacco Use Types Packs/Day Years Used Date Smoking Tobacco: Never Assessed Sex and Gender Information Value Date Recorded Sex Assigned at Not on file Legal Sex Male 3:08 AM CLOTH BLEACHING RANGE OPERATOR CHIEF Gender Identity Not on file Sexual Orientation Not on file documented as of this encounter Plan of Treatment Not on file documented as of this encounter Visit Diagnoses Diagnosis Unspecified essential hypertension- Primary Other and unspecified hyperlipidemia Abdominal pain, unspecified site Depressive disorder, not elsewhere classified documented in this encounter Care Teams Complex Manager Relationship Specialty Start Date End Date Srinivasa Anderson MD [address] [place] [address] PCP - General 07/18/04 documented as of this encounter
--- OUTSIDE RECORDS SUMMARY | 2025-04-10 06:34 | XMS_ITS | Encounter Summary ---
Author Organization [facility] Address [address] [place] [address] Care Team Providers Care Remote Control Assembler Name Role Phone Srinivasa Anderson MD Primary Care Provider [phone] Encounter Details Date Type Department Care Team (Latest Contact Info) Description 09/26/2006 Outpatient Historical [facility] [place] [address] [place] [address] Srinivasa Anderson MD [address] [place] [address] Other Testicular Hypofunction (Primary Dx) Social History Tobacco Use Types Packs/Day Years Used Date Smoking Tobacco: Never Assessed Sex and Gender Information Value Date Recorded Sex Assigned at Not on file Legal Sex Male 3:08 AM MEDICAL LABORATORY TECHNOLOGIST Gender Identity Not on file Sexual Orientation Not on file documented as of this encounter Plan of Treatment Not on file documented as of this encounter Visit Diagnoses Diagnosis Other testicular hypofunction- Primary documented in this encounter Care Teams Remote Control Assembler Relationship Specialty Start Date End Date Srinivasa Anderson MD [address] [place] [address] PCP - General 07/18/04 documented as of this encounter
--- OUTSIDE RECORDS SUMMARY | 2025-04-10 06:34 | XMS_ITS | Encounter Summary ---
Author Organization [facility] Address [address] [place] [address] Care Team Providers Care Operating Room Technologist Name Role Phone Srinivasa Anderson MD Primary Care Provider [phone] Encounter Details Date Type Department Care Team (Late st Contact Info) Description 04/17/2007 Outpatient Historical [facility] [place] [place] [address] Srinivasa Anderson MD [address] [place] [address] Social History Tobacco Use Types Packs/Day Years Used Date Smoking Tobacco: Never Assessed Sex and Gender Information Value Date Recorded Sex Assigned at Not on file Legal Sex Male 3:08 AM ROTARY SAW OPERATOR Gender Identity Not on file Sexual Orientation Not on file documented as of this encounter Plan of Treatment Not on file documented as of this encounter Visit Diagnoses Not on filedocumented in this encounter Care Teams Operating Room Technologist Relationship Specialty Start Date End Date Srinivasa Anderson MD [address] [place] [address] PCP - General 07/18/04 documented as of this encounter
--- OUTSIDE RECORDS SUMMARY | 2025-04-10 06:34 | XMS_ITS | Encounter Summary ---
Author Organization [facility] Address [address] [facility] [place] [address] Care Team Providers Care Grey Goods Examiner Name Role Phone Srinivasa Anderson MD Primary Care Provider [phone] Encounter Details Date Type Department Care Team (Latest Contact Info) Description 05/15/2006 Outpatient Historical [facility] [place] [address] [place] [address] Srinivasa Anderson MD [address] [place] [address] Other Testicular Hypofunction (Primary Dx) Social History Tobacco Use Types Packs/Day Years Used Date Smoking Tobacco: Never Assessed Sex and Gender Information Value Date Recorded Sex Assigned at Not on file Legal Sex Male 3:08 AM CORE MICROARCHITECT Gender Identity Not on file Sexual Orientation Not on file documented as of this encounter Plan of Treatment Not on file documented as of this encounter Visit Diagnoses Diagnosis Other testicular hypofunction- Primary documented in this encounter Care Teams Grey Goods Examiner Relationship Specialty Start Date End Date Srinivasa Anderson MD [address] [place] [address] PCP - General 07/18/04 documented as of this encounter
--- OUTSIDE RECORDS SUMMARY | 2025-04-10 06:34 | XMS_ITS | Encounter Summary ---
Author Organization [facility] Address [address] [facility] [place] [address] Care Team Providers Care Woodworking Machine Operator Name Role Phone Srinivasa Anderson MD Primary Care Provider [phone] Reason for Referral * Outpatient Services (Routine) - Closed Specialty Diagnoses / Procedures Referred By Contac t Referred To Contact Diagnoses Breast swelling Procedures MAMMO BREAST US LT Srinivasa Anderson MD [address] [place] [address] Phone: tel: fax: Referral ID Status Reason Start Date Expiration Date Visits Re quested Visits Authorized [id number] Closed 04/08/2012 04/08/2013 1 1 ONAL ACCOUNT MANAGER Encounter Details Date Type Department Care Team (Late st Contact Info) Description 04/08/2012 [facility] [place] [place] [address] Srinivasa Anderson MD [address] [place] [address] Breast swelling Social History Tobacco Use Types Packs/Day Years Used Date Smoking Tobacco: Former Cigarettes 0.5 30 0 04/22/1962 - 04/22/1992 Smokeless Tobacco: Never Alcohol Use Standard Drinks/Week Comments No 0 (1 standard drink = 0.6 oz pur e alcohol) Sex and Gender Information Value Date Recorded Sex Assigned at Not on file Legal Sex Male 3:08 AM NATIONAL ACCOUNT MANAGER Gender Identity Not on file Sexual Orientation Not on file Occupation Industry Job Start Date Job End Date Not on file Not on file Not on file Not on file documented as of this encounter Plan of Treatment Not on file documented as of this encounter Results * MAMMO BREAST US LT (04/08/2012 11:31 AM NATIONAL ACCOUNT MANAGER) Anatomical Region Laterality Modality Breast Left Ultrasound 04/08/2012 11:1 3 AM NATIONAL ACCOUNT MANAGER Impressions 04/08/2012 8:55 PM NATIONAL ACCOUNT MANAGER IMPRESSION: Bilateral diagnostic exam and directed left breast ultrasound was performed today. The mammogram is unremarkable as well as the directed left breast ultrasound. Therefore clinical correlation is recommended regarding the reported symptoms. Patient received the result and recommendation letter. Spencer 1140 AM - uploaded from [employer] 04/08/2012 8:55 PM NATIONAL ACCOUNT MANAGER REASON FOR EXAM: Patient is reporting [...] by the Computer Aided Detection System (CAD), Fan TV ImageChecker, Version 8.3. LEFT BREAST ULTRASOUND: Sonographic [...] by the Computer Aided Detection System (CAD), Fan TV ImageLimecraftcker, Version 8.3. LEFT BREAST ULTRASOUND: Sonographic evaluation [...] letter. DB/allie 1140 AM - uploaded from [employer] Srinivasa Anderson MD MAMMO ORDERABLES Final Result documented in this encounter Visit Diagnoses Diagnosis Breast swelling Lump or mass in breast Breast swelling Lump or mass in breast documented in this encounter Care Teams Woodworking Machine Operator Relationship Specialty Start Date End Date Srinivasa Anderson MD [address] [address] PCP - General 07/18/04 documented as of this encounter
--- OUTSIDE RECORDS SUMMARY | 2025-04-10 06:34 | XMS_ITS | Encounter Summary ---
Author Organization [facility] Address [address] [place] [address] Care Team Providers Care Pole Classifier Name Role Phone Srinivasa Anderson MD Primary Care Provider [phone] Encounter Details Date Type Department Care Team (Late st Contact Info) Description 05/15/2007 Outpatient [facility] [place] [address] [place] [address] Srinivasa Anderson MD [address] [place] [address] Social History Tobacco Use Types Packs/Day Years Used Date Smoking Tobacco: Never Assessed Sex and Gender Information Value Date Recorded Sex Assigned at Not on file Legal Sex Male 3:08 AM BUDGET COUNSELOR Gender Identity Not on file Sexual Orientation Not on file documented as of this encounter Plan of Treatment Not on file documented as of this encounter Visit Diagnoses Not on filedocumented in this encounter Care Teams Pole Classifier Relationship Specialty Start Date End Date Srinivasa Anderson MD [address] [place] [address] PCP - General 07/18/04 documented as of this encounter
--- OUTSIDE RECORDS SUMMARY | 2025-04-10 06:34 | XMS_ITS | Encounter Summary ---
Author Organization [facility] Address [address] [facility] [facility] [place] [address] Care Team Providers Care Caustic Liquor Maker Name Role Phone Srinivasa Anderson MD Primary Care Provider [phone] Encounter Details Date Type Department Care Team (Latest Contact Info) Description 07/25/2005 Outpatient Historical [facility] [address] [place] [address] 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
--- OUTSIDE RECORDS SUMMARY | 2025-04-10 06:34 | XMS_ITS | Encounter Summary ---
Author Organization [facility] Address [address] [facility] [place] [address] Care Team Providers Care Quarter Section Ironer Name Role Phone Srinivasa Anderson MD Primary Care Provider [phone] Encounter Details Date Type Department Care Team (Latest Contact Info) Description 11/22/2005 Outpatient Historical [facility] [address] [place] [address] Nati Espinoza MD NO ADDRESS ON FILE Other Testicular Hypofunction (Primary Dx) Social History Tobacco Use Types Packs/Day Years Used Date Smoking Tobacco: Never Assessed Sex and Gender Information Value Date Recorded Sex Assigned at Not on file Legal Sex Male 3:08 AM LUMBER ESTIMATOR Gender Identity Not on file Sexual Orientation Not on file documented as of this encounter Plan of Treatment Not on file documented as of this encounter Visit Diagnoses Diagnosis Other testicular hypofunction- Primary documented in this encounter Care Teams Quarter Section Ironer Relationship Specialty Start Date End Date Srinivasa Anderson MD [address] [place] [address] PCP - General 07/18/04 documented as of this encounter
--- OUTSIDE RECORDS SUMMARY | 2025-04-10 06:34 | XMS_ITS | Encounter Summary ---
Author Organization [facility] Address [address] [facility] [place] [address] Care Team Providers Care Steam Setter Name Role Phone Srinivasa Anderson MD Primary Care Provider [phone] Encounter Details Date Type Department Care Team (Latest Contact Info) Description 10/24/2006 Outpatient Historical [facility] [place] [place] [address] Srinivasa Anderson MD [address] [place] [address] Other Testicular Hypofunction (Primary Dx) Social History Tobacco Use Types Packs/Day Years Used Date Smoking Tobacco: Never Assessed Sex and Gender Information Value Date Recorded Sex Assigned at Not on file Legal Sex Male 3:08 AM PRODUCTION STAFF WORKER Gender Identity Not on file Sexual Orientation Not on file documented as of this encounter Plan of Treatment Not on file documented as of this encounter Visit Diagnoses Diagnosis Other testicular hypofunction- Primary documented in this encounter Care Teams Steam Setter Relationship Specialty Start Date End Date Srinivasa Anderson MD [address] [place] [address] PCP - General 07/18/04 documented as of this encounter
--- OUTSIDE RECORDS SUMMARY | 2025-04-10 06:34 | XMS_ITS | Encounter Summary ---
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 Social History Tobacco Use Types Packs/Day Years Used Date Smoking Tobacco: Never Assessed Sex and Gender Information Value Date Recorded Sex Assigned at Not on file Legal Sex Male 3:08 AM DIFFERENTIAL TESTER Gender Identity Not on file Sexual Orientation Not on file documented as of this encounter Plan of Treatment Not on file documented as of this encounter Visit Diagnoses Diagnosis Other abnormal blood chemistry- Primary Osteoarthrosis, unspecified whether generalized or localized, unspecified site Unspecified disorder of male genital organs documented in this encounter Care Teams Chocolate Finisher Relationship Specialty Start Date End Date Srinivasa Anderson MD [address] [place] [address] PCP - General 07/18/04 documented as of this encounter
--- OUTSIDE RECORDS SUMMARY | 2025-04-10 06:34 | XMS_ITS | Encounter Summary ---
Author Organization [facility] Address [address] [place] [address] Care Team Providers Care Server Service Assistant Name Role Phone Srinivasa Anderson MD Primary Care Provider [phone] Encounter Details Date Type Department Care Team (Latest Contact Info) Description 04/25/2006 Outpatient Historical [facility] [place] [address] [place] [address] Srinivasa Anderson MD [address] [place] [address] Acute Sinusitis, Unspecified (Primary Dx) Social History Tobacco Use Types Packs/Day Years Used Date Smoking Tobacco: Never Assessed Sex and Gender Information Value Date Recorded Sex Assigned at Not on file Legal Sex Male 3:08 AM MEDICAL ADMINISTRATOR Gender Identity Not on file Sexual Orientation Not on file documented as of this encounter Plan of Treatment Not on file documented as of this encounter Visit Diagnoses Diagnosis Acute sinusitis, unspecified- Primary documented in this encounter Care Teams Server Service Assistant Relationship Specialty Start Date End Date Srinivasa Anderson MD [address] [place] [address] PCP - General 07/18/04 documented as of this encounter
--- OUTSIDE RECORDS SUMMARY | 2025-04-10 06:34 | XMS_ITS | Encounter Summary ---
Author Organization [facility] Address [address] [place] [address] Care Team Providers Care Vp Product Name Role Phone Srinivasa Anderson MD Primary Care Provider [phone] Encounter Details Date Type Department Care Team (Latest Contact Info) Description 03/10/2007 Outpatient Historical [facility] [address] [place] [address] Srinivasa Anderson MD [address] [phone] Other Diseases of Lung, not Elsewhere Classified (Primary Dx) Social History Tobacco Use Types Packs/Day Years Used Date Smoking Tobacco: Never Assessed Sex and Gender Information Value Date Recorded Sex Assigned at Not on file Legal Sex Male 3:08 AM CLAY MIXER Gender Identity Not on file Sexual Orientation Not on file documented as of this encounter Plan of Treatment Not on file documented as of this encounter Visit Diagnoses Diagnosis Other diseases of lung, not elsewhere classified- Primary documented in this encounter Care Teams Vp Product Relationship Specialty Start Date End Date Srinivasa Anderson MD [address] [facility] [address] [place] [address] PCP - General 07/18/04 documented as of this encounter
--- OUTSIDE RECORDS SUMMARY | 2025-04-10 06:34 | XMS_ITS | Encounter Summary ---
Author Organization [facility] Address [address] [place] [address] Care Team Providers Care Investigative Assistant Name Role Phone Srinivasa Anderson MD Primary Care Provider [phone] Encounter Details Date Type Department Care Team (Late st Contact Info) Description 03/11/2025 Results Follow-Up [facility] [place] [address] Fran Mancilla, AIRPORT REFUELING HANDLER [address] [place] [address] TICK-BORNE DISEASE AB PANEL W/REFLEX [...] on file Legal Sex Male 6:28 AM FIREARMS ASSEMBLY SUPERVISOR Gender Identity Not on file Sexual Orientation Not on file documented as of this encounter Miscellaneous Notes * Result Encounter Note - Fran Mancilla NP - 03/11/2025 7:24 AM CST Tick panel was negative. Please continue to follow-up with your pipe washer and the acid washer operator. If symptoms worsen or if you develop new symptoms please follow-up sooner or go to urgent care/ER. ARMS ASSEMBLY SUPERVISOR documented in this encounter Plan of Treatment Upcoming Encounters Date Type Department Care Team (Late st Contact Info) Description 06/29/2025 8:00 AM CDT Procedure visit [facility] [address] [place] [phone] Mariela Stone MD [address] [place] [phone] 07/08/2025 1:00 PM CDT Office Visit [facility] [address] [place] [phone] Kodak Samuel MD [address] [place] [phone] 03/28/2026 11:00 AM FIREARMS ASSEMBLY SUPERVISOR Office Visit [facility] [address] [place] [phone] Dominic Haskins CRNP [address], [address] [place] [phone] Mariela Stone MD [address] [place] [phone] Mayra Mohr, VERONIQUE [address] [facility] [address] [place] [address] documented as of this encounter Visit Diagnoses Not on filedocumented in this encounter Care Teams Investigative Assistant Relationship Specialty Start Date End Date Srinivasa Anderson MD [address] [facility] [address] [place] [address] PCP - General Family Practice 05/18/24 documented as of this encounter
--- OUTSIDE RECORDS SUMMARY | 2025-04-10 06:34 | XMS_ITS | Encounter Summary ---
Author Organization [facility] Address [address] [place] [address] Care Team Providers Care Press Operator Helper Name Role Phone Srinivasa Anderson MD Primary Care Provider [phone] Encounter Details Date Type Department Care Team (Latest Contact Info) Description 10/10/2005 Outpatient Historical [facility] [address] [place] [address] Zoltan Mahoney MD NO ADDRESS ON FILE Actinic Keratosis (Primary Dx) Social History Tobacco Use Types Packs/Day Years Used Date Smoking Tobacco: Never Assessed Sex and Gender Information Value Date Recorded Sex Assigned at Not on file Legal Sex Male 3:08 AM DIRECTOR OF HEALTH EDUCATION Gender Identity Not on file Sexual Orientation Not on file documented as of this encounter Plan of Treatment Not on file documented as of this encounter Visit Diagnoses Diagnosis Actinic keratosis- Primary documented in this encounter Care Teams Press Operator Helper Relationship Specialty Start Date End Date Srinivasa Anderson MD [address] [phone] PCP - General 07/18/04 documented as of this encounter
--- OUTSIDE RECORDS SUMMARY | 2025-04-10 06:34 | XMS_ITS | Encounter Summary ---
Author Organization [facility] Address [address] [facility] [place] [address] Care Team Providers Care Centerless Grinder Operator Name Role Phone Srinivasa Anderson MD Primary Care Provider Encounter Details Date Type Department Care Team (Latest Contact Info) Description 12/19/2006 Outpatient Historical [facility] [place] [place] [address] Srinivasa Anderson MD [address] [place] [address] Other Testicular Hypofunction (Primary Dx) Social History Tobacco Use Types Packs/Day Years Used Date Smoking Tobacco: Never Assessed Sex and Gender Information Value Date Recorded Sex Assigned at Not on file 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
--- OUTSIDE RECORDS SUMMARY | 2025-04-10 06:34 | XMS_ITS | Encounter Summary ---
Author Organization [facility] Address [address] [facility] [place] [address] Care Team Providers Care Salesperson Men'S Furnishings Name Role Phone Srinivasa Anderson MD Primary Care Provider [phone] Encounter Details Date Type Department Care Team (Latest Contact Info) Description 04/11/2006 Outpatient Historical [facility] Dermatology- [facility] [place] [address] [place] [address] Zoltan Mahoney MD NO ADDRESS ON FILE Malig John Skin Ear (Primary Dx); Actinic Keratosis; Other Seborrheic Keratosis Social History Tobacco Use Types Packs/Day Years Used Date Smoking Tobacco: Never Assessed Sex and Gender Information Value Date Recorded Sex Assigned at Not on file 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
--- OUTSIDE RECORDS SUMMARY | 2025-04-10 06:34 | XMS_ITS | Encounter Summary ---
Author Organization [facility] Address [address] [facility] [place] [address] Care Team Providers Care Flight Readiness Technician Name Role Phone Srinivasa Anderson MD Primary Care Provider [phone] Encounter Details Date Type Department Care Team (Latest Contact Info) Description 10/10/2006 Outpatient Historical [facility] Dermatology- [facility] [place] [address] [place] [address] Zoltan Mahoney MD NO ADDRESS ON FILE Actinic Keratosis (Primary Dx); Other Seborrheic Keratosis; Benign John Scalp/Skin Neck Social History Tobacco Use Types Packs/Day Years Used Date Smoking Tobacco: Never Assessed Sex and Gender Information Value Date Recorded Sex Assigned at Not on file 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
--- OUTSIDE RECORDS SUMMARY | 2025-04-10 06:34 | XMS_ITS | Encounter Summary ---
Author Organization [facility] Address [address] [facility] [place] [address] Care Team Providers Care Wire Insulator Name Role Phone Srinivasa Anderson MD Primary Care Provider [phone] Encounter Details Date Type Department Care Team (Latest Contact Info) Description 09/27/2005 Outpatient Historical [facility] Dermatology- [facility] [place] [address] [place] [address] Zoltan Mahoney MD NO ADDRESS ON FILE Malig John Skin Arm (Primary Dx); Actinic Keratosis; Other Seborrheic Keratosis Social History Tobacco Use Types Packs/Day Years Used Date Smoking Tobacco: Never Assessed Sex and Gender Information Value Date Recorded Sex Assigned at Not on file 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
--- OUTSIDE RECORDS SUMMARY | 2025-04-10 06:34 | XMS_ITS | Encounter Summary ---
Author Organization [facility] Address [address] [place] [address] Care Team Providers Care Social Group Worker Name Role Phone Srinivasa Anderson MD Primary Care Provider [phone] Encounter Details Date Type Department Care Team (Late st Contact Info) Description 05/03/[address] 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
--- OUTSIDE RECORDS SUMMARY | 2025-04-10 06:34 | XMS_ITS | Encounter Summary ---
Author Organization [facility] Address [address] [facility] [place] [address] Care Team Providers Care Agency Sales Development Associate Name Role Phone Srinivasa Anderson MD Primary Care Provider [phone] Encounter Details Date Type Department Care Team (Latest Contact Info) Description 02/07/2006 Outpatient Historical [facility] [place] [place] [address] Srinivasa Anderson MD [address] [place] [address] Other Testicular Hypofunction (Primary Dx) Social History Tobacco Use Types Packs/Day Years Used Date Smoking Tobacco: Never Assessed Sex and Gender Information Value Date Recorded Sex Assigned at Not on file 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
--- OUTSIDE RECORDS SUMMARY | 2025-04-10 06:34 | XMS_ITS | Encounter Summary ---
Author Organization [facility] Address [address] [facility] [place] [address] Care Team Providers Care Ship Worker Name Role Phone Srinivasa Anderson MD Primary Care Provider Reason for Referral * Outpatient Services (Routine) - Closed Specialty Diagnoses / Procedures Referred By Contac t Referred To Contact Diagnoses Breast swelling Procedures MAMMO DIGITAL DIAG BILAT Srinivasa Anderson MD [address] [place] [address] Phone: tel: fax: Referral ID Status Reason Start Date Expiration Date Visits Re quested Visits Authorized [id number] Closed 04/08/2012 04/08/2013 1 1 ECTOR PUBLICATIONS Encounter Details Date Type Department Care Team (Late st Contact Info) Description 04/08/2012 Ancillary Orders [facility] [place] [place] [address] Srinivasa Anderson MD [address] [place] [address] Breast swelling Social History Tobacco Use Types Packs/Day Years Used Date Smoking Tobacco: Former Cigarettes 0.5 30 0 04/22/1962 - 04/22/1992 Smokeless Tobacco: Never Alcohol Use Standard Drinks/Week Comments No 0 (1 standard drink = 0.6 oz pur e alcohol) Sex and Gender Information Value Date Recorded Sex Assigned at Not on file Legal Sex Male 3:08 AM INSPECTOR PUBLICATIONS Gender Identity Not on file Sexual Orientation Not on file Occupation Industry Job Start Date Job End Date Not on file Not on file Not on file Not on file documented as of this encounter Plan of Treatment Not on file documented as of this encounter Results * MAMMO DIGITAL DIAG BILAT (04/08/2012 11:03 AM INSPECTOR PUBLICATIONS) Anatomical Region Laterality Modality Breast Bilateral Mammography 04/08/2012 10:0 1 AM INSPECTOR PUBLICATIONS Impressions 04/08/2012 8:55 PM INSPECTOR PUBLICATIONS IMPRESSION: Bilateral diagnostic exam and directed left breast ultrasound was performed today. The mammogram is unremarkable as well as the directed left breast ultrasound. Therefore clinical correlation is recommended regarding the reported symptoms. Patient received the result and recommendation letter. Spencer 1140 AM - uploaded from [employer] - Narrative 04/08/2012 8:55 PM INSPECTOR PUBLICATIONS REASON FOR EXAM: Patient is reporting to [...] by the Computer Aided Detection System (CAD), One-Song ImageChecker, Version 8.3. LEFT BREAST ULTRASOUND: Sonographic [...] by the Computer Aided Detection System (CAD), One-Song ImageBitbrainscker, Version 8.3. LEFT BREAST ULTRASOUND: Sonographic evaluation [...] letter. DB/allie 1140 AM - uploaded from [employer] - us Srinivasa Anderson MD MAMMO ORDERABLES Final Result documented in this encounter Visit Diagnoses Diagnosis Breast swelling Lump or mass in breast Breast swelling Lump or mass in breast documented in this encounter Care Teams Ship Worker Relationship Specialty Start Date End Date Srinivasa Anderson MD [address] [address] PCP - General 07/18/04 documented as of this encounter
--- OUTSIDE RECORDS SUMMARY | 2025-04-10 06:34 | XMS_ITS | Encounter Summary ---
Author Organization [facility] Address [address] [facility] [place] [address] Care Team Providers Care Executive Search Consultant Name Role Phone Srinivasa Anderson MD Primary Care Provider [phone] Encounter Details Date Type Department Care Team (Latest Contact Info) Description 08/15/2006 Outpatient Historical [facility] [place] [place] [address] Srinivasa Anderson MD [address] [place] [address] Other Testicular Hypofunction (Primary Dx) Social History Tobacco Use Types Packs/Day Years Used Date Smoking Tobacco: Never Assessed Sex and Gender Information Value Date Recorded Sex Assigned at Not on file 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
--- OUTSIDE RECORDS SUMMARY | 2025-04-10 06:34 | XMS_ITS | Encounter Summary ---
Author Organization [facility] Address [address] [facility] [place] [address] Care Team Providers Care Preventive Maintenance Engineer Name Role Phone Srinivasa Anderson MD Primary Care Provider Encounter Details Date Type Department Care Team (Latest Contact Info) Description 10/10/2005 Outpatient Historical [facility] Dermatology- [facility] [place] [address] [place] [phone] Zoltan Mahoney MD NO ADDRESS ON FILE Malig John Skin Ear (Primary Dx); Malig John Skin Arm Social History Tobacco Use Types Packs/Day Years Used Date Smoking Tobacco: Never Assessed Sex and Gender Information Value Date Recorded Sex Assigned at Not on file 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
--- OUTSIDE RECORDS SUMMARY | 2025-04-10 06:34 | XMS_ITS | Encounter Summary ---
Author Organization [facility] Address [address] [facility] [place] [address] Care Team Providers Care Electromedical Service Engineer Name Role Phone Srinivasa Anderson MD Primary Care Provider [phone] Encounter Details Date Type Department Care Team (Latest Contact Info) Description 2006 Outpatient Historical [facility] [place] [address] Srinivasa Anderson MD [address] [place] [address] Other Testicular Hypofunction (Primary Dx) Social History Tobacco Use Types Packs/Day Years Used Date Smoking Tobacco: Never Assessed Sex and Gender Information Value Date Recorded Sex Assigned at Not on file 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
--- OUTSIDE RECORDS SUMMARY | 2025-04-10 06:34 | XMS_ITS | Encounter Summary ---
Author Organization [facility] Address [address] [facility] [place] [address] Care Team Providers Care Assistant Professor Of Nursing Name Role Phone Srinivasa Anderson MD Primary Care Provider [phone] Encounter Details Date Type Department Care Team (Latest Contact Info) Description 08/16/2005 Outpatient Historical [facility] [place] [place] [address] Srinivasa Anderson MD [address] [place] [address] Other Testicular Hypofunction (Primary Dx) Social History Tobacco Use Types Packs/Day Years Used Date Smoking Tobacco: Never Assessed Sex and Gender Information Value Date Recorded Sex Assigned at Not on file 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
--- OUTSIDE RECORDS SUMMARY | 2025-04-10 06:34 | XMS_ITS | Encounter Summary ---
Author Organization [facility] Address [address] [place] [address] Care Team Providers Care Cnc Lathe Programmer Name Role Phone Srinivasa Anderson MD Primary Care Provider [phone] Encounter Details Date Type Department Care Team (Late st Contact Info) Description 03/05/2025 Lab Requisition [facility] [address] [place] [address] Fran Mancilla, CALCINER OPERATOR HELPER [address] [facility] [address] [place] [phone] Essential (primary) hypertension Social History Tobacco Use [...] on file Legal Sex Male 6:28 AM TRAINER Gender Identity Not on file Sexual Orientation Not on file documented as of this encounter Plan of Treatment Upcoming Encounters Date Type Department Care Team (Late st Contact Info) Description 06/29/2025 8:00 AM CDT Procedure visit [facility] [address] [place] [phone] Mariela Stone MD [address] [place] [phone] 07/08/2025 1:00 PM CDT Office Visit [facility] [address] [place] [address] Kodak Samuel MD [address] [place] [phone] 03/28/2026 11:00 AM TRAINER Office Visit [facility] [address] [place] [phone] Dominic Haskins CRNP [address], [address] [place] [phone] Mariela Stone MD [address] [place] [phone] Mayra Mohr NP [address], [address] [place] [phone] documented as of this encounter Procedures Procedure Name Priority Date/Time Associated Diagnosis Comments EXTRA TUBE (LAV) Routine 03/05/2025 12:3 3 PM TRAINER Essential (primary) hypertension BRAIN NATRIURETIC PEPTIDE, BNP OR PROBNP Stat 03/05/2025 12:33 PM TRAINER Essential (primary) hypertension BASIC METABOLIC PANEL Stat 03/05/2025 12:33 PM TRAINER Essential (primary) hypertension documented in this encounter Results * (ABNORMAL) BASIC METABOLIC PANEL (03/05/2025 12:33 PM TRAINER) SODIUM 133(L) 136 - 145 mmol/L 03/05/2025 2:43 PM [facility] POTASSIUM 3.4(L) 3.5 - 5.1 mmol/L 03/05/2025 2:43 PM [facility] CHLORIDE 93(L) 98 - 107 mmol/L 03/05/2025 2:43 PM [facility] CO2 28 22 - 29 mmol/L 03/05/2025 2:43 PM [facility] CALCIUM 8.4(L) 8.8 - 10.2 mg/dL 03/05/2025 2:43 PM [facility] BUN 66(H) 8 - 23 mg/dL 03/05/2025 2:43 PM [facility] CREATININE 1.82(H) 0.67 - 1.17 mg/dL 03/05/2025 2:43 PM [facility] Comment:The GFR result is no t clinically significant on patients <18 or >70 years of age. GLUCOSE 117(H) 74 - 99 mg/dL 03/05/2025 2:43 PM [facility] GFR 36 mL/min/1. 73 sq meter 03/05/2025 2:43 PM [facility] Comment:eGFR calculated with 2020 CKD-EPI equation. Vegetarian diet, extremely high or low muscle mass, and may affect results. Cystatin C with Glomerular Filtration Rate is a suitable alternative for these patients. ANION GAP 12 9 - 20 mmol/L 03/05/2025 2:43 PM [facility] Blood Collection / Unknown 03/05/2025 12:33 PM TRAINER 03/05/2025 2:21 PM TRAINER us Fran P Huslig CALCINER OPERATOR HELPER CHEMISTRY ORDERABLES Final Resu lt Performing Organization Address [facility] Co de Phone Number [facility] CLIA # [id number] [address] [address] * EXTRA TUBE (LAV) (03/05/2025 12:33 PM TRAINER) Blood Collection / Unknown 03/05/2025 12:33 PM TRAINER 03/05/2025 2:22 PM TRAINER us Fran Mancilla NP HEMATOLOGY ORDERABLES Final Res ult Performing Organization Address [facility] de Phone Number [facility] CLIA # [id number] [address] [address] * (ABNORMAL) BRAIN NATRIURETIC PEPTIDE, BNP OR PROBNP (03/05/2025 12:33 PM TRAINER) PROBNP, N TERMINAL 3,436(H) 0 - 450 pg/mL 03/05/2025 2:43 PM TRAINER [facility] Comment: INTERPRETIVE COMMENT based on diagnosis: Diagnostic [...] Blood Collection / Unknown 03/05/2025 12:33 PM TRAINER 03/05/2025 2:21 PM TRAINER us Fran Mancilla NP CHEMISTRY ORDERABLES Final Resu lt Performing Organization Address [facility] Co de Phone Number [facility] CLIA # [id number] [address] [facility] [place] [address] documented in this encounter Visit Diagnoses Diagnosis Essential (primary) hypertension Unspecified essential hypertension documented in this encounter Care Teams Cnc Lathe Programmer Relationship Specialty Start Date End Date Srinivasa Anderson MD [address] [phone] PCP - General Family Practice 05/18/24 documented as of this encounter
--- OUTSIDE RECORDS SUMMARY | 2025-04-10 06:34 | XMS_ITS | Encounter Summary ---
Author Organization [facility] Address [address] [facility] [place] [address] Care Team Providers Care Electronics Lead Name Role Phone Srinivasa Anderson MD Primary Care Provider [phone] Encounter Details Date Type Department Care Team (Latest Contact Info) Description 03/20/2007 Outpatient Historical 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
--- OUTSIDE RECORDS SUMMARY | 2025-04-10 06:34 | XMS_ITS | Encounter Summary ---
Author Organization [facility] Address [address] [place] [address] Care Team Providers Care Gis Consultant Name Role Phone Srinivasa Anderson MD Primary Care Provider [phone] Encounter Details Date Type Department Care Team (Late st Contact Info) Description 06/03/2006 Outpatient Historical [facility] [address] [place] [address] Srinivasa Anderson MD [address] [phone] Social History Tobacco Use Types Packs/Day Years Used Date Smoking Tobacco: Never Assessed Sex and Gender Information Value Date Recorded Sex Assigned at Not on file 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
--- OUTSIDE RECORDS SUMMARY | 2025-04-10 06:34 | XMS_ITS | Encounter Summary ---
Author Organization [facility] Address [address] [facility] [place] [address] Care Team Providers Care Rubber Cutting Machine Tender Name Role Phone Srinivasa Anderson MD Primary Care Provider [phone] Encounter Details Date Type Department Care Team (Latest Contact Info) Description 01/18/2006 Outpatient Historical [facility] [place] [place] [address] Srinivasa Anderson MD [address] [place] [address] Other Testicular Hypofunction (Primary Dx) Social History Tobacco Use Types Packs/Day Years Used Date Smoking Tobacco: Never Assessed Sex and Gender Information Value Date Recorded Sex Assigned at Not on file 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
--- OUTSIDE RECORDS SUMMARY | 2025-04-10 06:34 | XMS_ITS | Encounter Summary ---
Author Organization [facility] Address [address] [facility] [place] [address] Care Team Providers Care Storyboard Artist Name Role Phone Srinivasa Anderson MD Primary Care Provider [phone] Encounter Details Date Type Department Care Team (Latest Contact Info) Description 03/26/2006 Outpatient [facility] [place] [place] [address] Srinivasa Anderson MD [address] [place] [address] Other Testicular Hypofunction (Primary Dx); Vaccine for influenza; Lumbago Social History Tobacco Use Types Packs/Day Years Used Date Smoking Tobacco: Never Assessed Sex and Gender Information Value Date Recorded Sex Assigned at Not on file 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
--- OUTSIDE RECORDS SUMMARY | 2025-04-10 06:34 | XMS_ITS | Encounter Summary ---
Author Organization [facility] Address [address] [place] [address] Care Team Providers Care Documentation Clerk Name Role Phone Srinivasa Anderson MD Primary Care Provider [phone] Encounter Details Date Type Department Care Team (Latest Contact Info) Description 04/11/2006 Outpatient Historical [facility] [address] 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
--- OUTSIDE RECORDS SUMMARY | 2025-04-10 06:34 | XMS_ITS | Encounter Summary ---
Author Organization [facility] Address [address] [place] [address] Care Team Providers Care Count Team Clerk Name Role Phone Srinivasa Anderson MD Primary Care Provider [phone] Encounter Details Date Type Department Care Team (Latest Contact Info) Description 04/19/2006 Outpatient Historical [facility] [place] [place] [address] Srinivasa Anderson MD [address] [place] [address] Other Testicular Hypofunction (Primary Dx) Social History Tobacco Use Types Packs/Day Years Used Date Smoking Tobacco: Never Assessed Sex and Gender Information Value Date Recorded Sex Assigned at Not on file 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
--- OUTSIDE RECORDS SUMMARY | 2025-04-10 06:34 | XMS_ITS | Clinical Summary ---
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 OPERATOR Gender Identity Not on file Sexual Orientation Not on file Occupation Industry Job Start Date Job End Date Not on file Not on file Not on file Not on file Last Filed Vital Signs Vital Sign Reading Time Taken Comments Blood Pressure 118/84 06/23/2020 11:43 AM EARTH MOVING MACHINE OPERATOR Pulse 60 06/23/2020 11:43 AM EARTH MOVING MACHINE OPERATOR Temperature 36.4 C (97.6 F) 02/19/2020 3:25 PM CDT Respiratory Rate 16 02/19/2020 3:25 PM CDT Oxygen Saturation 99% 06/23/2020 11:43 AM EARTH MOVING MACHINE OPERATOR Inhaled Oxygen Concentration - - Weight 78.5 kg (173 lb) 06/23/2020 11:43 AM EARTH MOVING MACHINE OPERATOR Height 191.8 cm (6' 3.5 ) 06/23/2020 11:43 AM CS T Body Mass Index 21.34 06/23/2020 11:43 AM EARTH MOVING MACHINE OPERATOR Plan of Treatment Health Maintenance [...] history exists Medical Devices Implanted Type Area Picture Framer Device Identifier Shelf Expiration Date Model / Serial / Lot Lens Io Tecnis 1pc 22.0 [id number] - [id number] Implanted:Qty: 1 on 08/23/2016 by Dominic Peralta MD at [facility] Left: Eye [employer] 10/20/2019 [id number] / [id number] / Lens Io Tecnis 1pc 22.5 [id number] - [id number] Implanted:Qty: 1 on 09/06/2016 by Dominic Peralta MD at [facility] Right: Eye [employer] 12/19/2019 [id number] / [id number] / Procedures Procedure Name Priority Date/Time Associated Diagnosis Comments MICROALBUMIN/CREATI NINE RATIO, RANDOM UR Routine 11/09/2019 9:43 AM CDT Diabetic polyneuropathy associated with type 2 diabetes mellitus ([facility]) LIPID PANEL Routine 11/09/2019 9:43 AM CDT Diabetic polyneuropathy associated with type 2 diabetes mellitus ([facility]) HEMOGLOBIN A1C Routine 11/09/2019 9:43 AM CDT Diabetic polyneuropathy associated with type 2 diabetes mellitus ([facility]) HM DIABETES EYE EXAM Routine 11/17/2018 ENDOSCOPY, COLON, SCREENING Routine 08/12/2009 10:57 AM CDT Special Screening for Malignant Neoplasms, Colon from Last 3 Months or Most Recently Relevant to Health Maintenance Results * (ABNORMAL) MICROALBUMIN/CREATININE RATIO, RANDOM UR (11/09/2019 9:43 AM CDT) MICROALBUMIN, URINE 5.3 No Reference Range mg/dL 11/09/2019 9:33 PM CDT [facility] CREATININE, URINE 139.7 40.0 - 278.0 mg/dL 11/09/2019 9:33 PM CDT [facility] Comment:Reference Range vari es with fluid intake and diet. MICROALBUMIN/ CREAT RATIO, UR 37.9(H) <17.0 mg/g 11/09/2019 9:33 PM CDT [facility] Urine URINE SPECIMEN OBTAINED BY CLEAN CATCH PROCEDURE / Unknown Collection / Unknown 11/09/2019 9:43 AM CDT 11/09/2019 8:[address] [facility] - 11/09/2019 9:33 PM CDT Condition Microalbumin/Creat ratio Normal Males <17 Normal Females <25 Microalbuminuria Males 17-299 Microalbuminuria Females 25-299 Overt proteinuria >=300 us Srinivasa Anderson MD URINE ORDERABLES Final Result [facility] CLIA# [id number] [facility] [place] [address] * (ABNORMAL) HEMOGLOBIN A1C (11/09/2019 9:43 AM CDT) HEMOGLOBIN A1C 6.2(H) See Comment % 11/09/2019 9:37 PM CDT [facility] EST. AVG GLUCOSE, A1C 131 mg/dL 11/09/2019 9:37 PM CDT [facility] Blood Venipuncture / Unknown 11/09/2019 9:43 AM CDT 11/09/2019 8:23 PM CDT Narrative [facility] - 11/09/2019 9:37 PM CDT HGB A1C INTERPRETATION NORMAL: <5.7% PRE-DIABETES: 5.7 - 6.4% DIABETES: 6.5% OR GREATER Falsely low A1C measurements can occur when: 1. Anemia and/or hemolytic anemia is present. 2. Hemoglobin variants present. 3. Renal failure. 4. Transfusion of blood product in the last 120 days. We recommend ordering a fructosamine test([id number]) to more accurately assess glycemic status if any of the above conditions are present. us Srinivasa Anderson MD CHEMISTRY ORDERABLES Final Resul t [facility] CLIA# [id number] [address] [place] [address] * (ABNORMAL) LIPID PANEL (11/09/2019 9:43 AM CDT) [facility] CHOLESTEROL 189 <200 mg/dL 11/09/2019 9:10 PM CDT [facility] TRIGLYCERIDE 102 <150 mg/dL 11/09/2019 9:10 PM T [facility] HDL 47 40 - 59 mg/dL 11/09/2019 9:10 PM T [facility] LDL CALCULATED 122(H) <100 mg/dL 11/09/2019 9:10 PM T [facility] NON-HDL CHOLESTEROL 142(H) <130 mg/dL 11/09/2019 9:10 PM T [facility] Blood Venipuncture / Unknown 11/09/2019 9:43 AM CDT 11/09/2019 8:[address] [facility] - 11/09/2019 9:10 PM [...] Anderson MD CHEMISTRY ORDERABLES Final Resul t [facility]# [id number] [address] [place] [address] * DIABETES EYE EXAM (11/17/2018) us Abstract Spg Provider HEALTH MAINTENANCE Final R esult from Last 3 Months or Most Recently Relevant to Health Maintenance Insurance [address] [place] [address] MEDICARE PART A AND B [facility] [address] [place] [id number] RX [employer] RX Member Subscriber Plan / Payer (Ef fective 2005-Present) Name:Moiz Hernandez Relation to Subscriber:Self Name:Moiz Hernandez Payer ID:Not on file Group ID:[id number] Type:RX Medicare Part D Address: [place] RX [facility] DATA Medicare Part B Advance Directives For more information, please contact: [phone] Documents on File Type Date Recorded 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
--- OUTSIDE RECORDS SUMMARY | 2025-04-10 06:34 | XMS_ITS | Encounter Summary ---
Author Organization [facility] Address [address] [facility] [place] [address] Care Team Providers Care Examination Supervisor Name Role Phone Srinivasa Anderson MD Primary Care Provider Encounter Details Date Type Department Care Team (Latest Contact Info) Description 07/25/2005 Outpatient Historical [facility]at[facility]- [facility] [place] [address] [place] [address] Zoltan Mahoney MD NO ADDRESS ON FILE Malig John Skin Arm (Primary Dx); Other Seborrheic Keratosis Social History Tobacco Use Types Packs/Day Years Used Date Smoking Tobacco: Never Assessed Sex and Gender Information Value Date Recorded Sex Assigned at Not on file 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
--- OUTSIDE RECORDS SUMMARY | 2025-04-10 06:35 | XMS_ITS | Encounter Summary ---
Author Organization [facility] Address [address] [facility] [place] [address] Care Team Providers Care Electronic Equipment Repairmen Name Role Phone Srinivasa Anderson MD Primary Care Provider [phone] Encounter Details Date Type Department Care Team (Latest Contact Info) Description 01/17/[address] 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
--- OUTSIDE RECORDS SUMMARY | 2025-04-10 06:35 | XMS_ITS | Encounter Summary ---
Author Organization [facility] Address [address] [facility] [place] [address] Care Team Providers Care Anthropology Faculty Member Name Role Phone Srinivasa Anderson MD Primary Care Provider [phone] Encounter Details Date Type Department Care Team (Latest Contact Info) Description 10/26/2004 Outpatient Historical [facility] Dermatology- [facility] [place] [address] [place] [address] Zoltan Mahoney MD NO ADDRESS ON FILE Malig amado skin arm (Primary Dx); ACTINIC KERATOSIS; Inflamed seborr keratos; SEBORRHEIC KERATOSIS NOS Social History Tobacco Use Types Packs/Day Years Used Date Smoking Tobacco: Never Assessed Sex and Gender Information Value Date Recorded Sex Assigned at Not on file 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 Sex Male 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 JELLY MAKER Gender Identity Not on file Sexual Orientation Not on file documented as of this encounter Plan of Treatment Not on file documented as of this encounter Visit Diagnoses Diagnosis Malig amado skin arm- 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
--- OUTSIDE RECORDS SUMMARY | 2025-04-10 06:35 | XMS_ITS | Encounter Summary ---
Author Organization [facility] Address [address] [place] [address] Care Team Providers Care Shaping Machine Tender Name Role Phone Sriniavsa Anderson MD Primary Care Provider [phone] Encounter Details Date Type Department Care Team (Latest Contact Info) Description 02/08/2004 Outpatient Historical [facility] Imaging Services-Nilay [place] [address] [place] [address] Mark Lux MD [address] [place] [address] HEMATURIA (Primary Dx) Social History Tobacco Use Types Packs/Day Years Used Date Smoking Tobacco: Never Assessed Sex and Gender Information Value Date Recorded Sex Assigned at Not on file Legal Sex Male 3:08 AM SPEECH/LANGUAGE THERAPIST Gender Identity Not on file Sexual Orientation Not on file documented as of this encounter Plan of Treatment Not on file documented as of this encounter Visit Diagnoses Diagnosis Hematuria- Primary documented in this encounter Care Teams Shaping Machine Tender Relationship Specialty Start Date End Date Srinivasa Anderson MD [address] [place] [address] PCP - General 07/18/04 documented as of this encounter
--- OUTSIDE RECORDS SUMMARY | 2025-04-10 06:35 | XMS_ITS | Encounter Summary ---
Author Organization [facility] Address [address] [facility] [place] [address] Care Team Providers Care Security Program Manager Name Role Phone Srinivasa Anderson MD Primary Care Provider [phone] Encounter Details Date Type Department Care Team (Latest Contact Info) Description 09/23/2002 Outpatient Historical [facility] Dermatology- [facility] [place] [address] [place] [id number] Zoltan Mahoney MD NO ADDRESS ON FILE MALIG NEOPLASM SKIN EAR (Primary Dx) Social History Tobacco Use Types Packs/Day Years Used Date Smoking Tobacco: Never Assessed Sex and Gender Information Value Date Recorded Sex Assigned at Not on file 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
--- OUTSIDE RECORDS SUMMARY | 2025-04-10 06:35 | XMS_ITS | Encounter Summary ---
Author Organization [facility] Address [address] [place] [address] Care Team Providers Care Termite Treater Name Role Phone Srinivasa Anderson MD Primary Care Provider [phone] Encounter Details Date Type Department Care Team (Latest Contact Info) Description 03/04/2003 Outpatient Historical [facility] [place] [place] [address] Mark Lux MD [address] [place] [address] ABDOMINAL PAIN UNSPEC SITE (Primary Dx); LUMBAGO; ANXIETY STATE NOS Social History Tobacco Use Types Packs/Day Years Used Date Smoking Tobacco: Never Assessed Sex and Gender Information Value Date Recorded Sex Assigned at Not on file 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
--- OUTSIDE RECORDS SUMMARY | 2025-04-10 06:35 | XMS_ITS | Encounter Summary ---
Author Organization [facility] Address [address] [place] [address] Care Team Providers Care Clinical Audiologist Name Role Phone Srinivasa Anderson MD Primary Care Provider [phone] Encounter Details Date Type Department Care Team (Latest Contact Info) Description 07/18/2004 Outpatient Historical [facility] [place] [address] [facility] [address] [place] [address] Ar Stanton MD NO ADDRESS ON FILE INT HEMORRHOID W/O COMPL (Primary Dx) Social History Tobacco Use Types Packs/Day Years Used Date Smoking Tobacco: Never Assessed Sex and Gender Information Value Date Recorded Sex Assigned at Not on file 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
--- OUTSIDE RECORDS SUMMARY | 2025-04-10 06:35 | XMS_ITS | Encounter Summary ---
Author Organization [facility] Address [address] [place] [address] Care Team Providers Care Experimental Welder Name Role Phone Srinivasa Anderson MD Primary Care Provider [phone] Encounter Details Date Type Department Care Team (Latest Contact Info) Description 10/26/2004 Outpatient Historical [facility] [place] [place] [address] Srinivasa Anderson MD [address] [place] [address] TESTICULAR HYPOFUNC NEC (Primary Dx) Social History Tobacco Use Types Packs/Day Years Used Date Smoking Tobacco: Never Assessed Sex and Gender Information Value Date Recorded Sex Assigned at Not on file Legal Sex Male 3:08 AM TREAD BOOKER Gender Identity Not on file Sexual Orientation Not on file documented as of this encounter Plan of Treatment Not on file documented as of this encounter Visit Diagnoses Diagnosis Other testicular hypofunction- Primary documented in this encounter Care Teams Experimental Welder Relationship Specialty Start Date End Date Srinivasa Anderson MD [address] [place] [address] PCP - General 07/18/04 documented as of this encounter
--- OUTSIDE RECORDS SUMMARY | 2025-04-10 06:35 | XMS_ITS | Encounter Summary ---
Author Organization [facility] Address [address] [place] [address] Care Team Providers Care Ecological Technical Officer Name Role Phone Srinivasa Anderson MD Primary Care Provider [phone] Encounter Details Date Type Department Care Team (Latest Contact Info) Description 09/23/2002 Outpatient Historical [facility] Dermatology- [facility] [place] [address] [place] [id number] Zoltan Mahoney MD NO ADDRESS ON FILE ACTINIC KERATOSIS (Primary Dx); MALIG NEOPLASM SKIN FACE NEC; Inflamed seborr keratos Social History Tobacco Use Types Packs/Day Years Used Date Smoking Tobacco: Never Assessed Sex and Gender Information Value Date Recorded Sex Assigned at Not on file Legal Sex Male 3: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 TECHNICIAN Gender Identity Not on file Sexual Orientation Not on file documented as of this encounter Plan of Treatment Not on file documented as of this encounter Visit Diagnoses Diagnosis Actinic keratosis- Primary 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 Inflamed seborr keratos Inflamed seborrheic keratosis documented in this encounter Care Teams Ecological Technical Officer Relationship Specialty Start Date End Date Srinivasa Anderson MD [address] [place] [address] PCP - General 07/18/04 documented as of this encounter
--- OUTSIDE RECORDS SUMMARY | 2025-04-10 06:35 | XMS_ITS | Encounter Summary ---
Author Organization [facility] Address [address] [place] [address] Care Team Providers Care Deputy District Customs Director Name Role Phone Srinivasa Anderson MD Primary Care Provider Encounter Details Date Type Department Care Team (Latest Contact Info) Description 02/17/2004 Outpatient Historical [facility] Imaging Services-[place] [address] [place] [address] Mark Lux MD [address] [place] [address] ABNORMAL FINDINGS- ORGANS (Primary Dx) Social History Tobacco Use Types Packs/Day Years Used Date Smoking Tobacco: Never Assessed Sex and Gender Information Value Date Recorded Sex Assigned at Not on file 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
--- OUTSIDE RECORDS SUMMARY | 2025-04-10 06:35 | XMS_ITS | Clinical Summary ---
Author Organization [facility] Address [address] [place] [address] Phone Care Team Providers Care Fund Controller Name Role Phone Srinivasa Anderson MD Primary Care Provider [phone] Allergies No known active allergies Medications Syringe with Needle, Disp, (BD Luer-Adi Syringe) 3 mL 25 x 5/8 Syringe Inject 1ml every 30 days 50 Each 0 03/16/20 Active Additional Information Patient not taking.Reported on 03/26/2025 acetaminophen (TYLENOL) 500 mg tablet Take 500 mg by mouth every 6 hours as needed. 10/15/19 Active blood sugar diagnostic (Contour Next Test [...] mouth daily. 10 Tablet 02/24/2025 4:44 PM PROFESSIONAL SERVICES MANAGER 02/25/20 Active Additional Information Patient not taking.Reported [...] 10 days. 20 Capsule 03/05/20 25 025 Active Problems Problem Noted Date [...] Department Care Team Description 03/29/2025 Results Follow-Up [place] [address] [facility] [address] [place] [phone] Mariela Stone MD PACER PROGRAM/EVAL SINGLE LEAD 03/26/2025 11:45 AM PROFESSIONAL SERVICES MANAGER Procedure visit [place] [address] [facility] [address] [place] [phone] Mariela Stone MD Complete heart block (CMS/HCC) (Primary Dx); Persistent atrial fibrillation (CMS/HCC) 03/26/2025 11:40 AM PROFESSIONAL SERVICES MANAGER Office Visit [place] [id number] [facility] [address] [place] [phone] Dominic Haskins CRNP Parvathaneni, Sunthosh, MD Complete heart block (CMS/HCC) (Primary Dx); 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 [address] [place] [address] Dominic Haskins CRNP Benign hypertension (Primary Dx) 03/11/2025 Results [facility] [place] [address] [facility] [address] [place] [address] Fran Mancilla, PICKING BELT OPERATOR TICK-BORNE DISEASE AB PANEL W/REFLEX 03/10/2025 11:00 AM PROFESSIONAL SERVICES MANAGER Telephone Check Up [facility] Cancer and Hematology [place] [address] [facility] [address] [place] [address] Elvia Espinosa FNP 03/08/2025 Results Follow-Up [facility] [employer] [place] [address] [facility] [address] [place] [address] Fran Mancilla, PICKING BELT OPERATOR BRAIN NATRIURETIC PEPTIDE, BNP OR PROBNP, BASIC METABOLIC PANEL, BASIC METABOLIC PANEL 03/05/2025 11:45 AM PROFESSIONAL SERVICES MANAGER Office Visit [facility] [employer] [place] [address] [address] Fran Mancilla, PICKING BELT OPERATOR Tick bite, unspecified site, initial encounter (Primary Dx); Rash; HTN (hypertension), benign 03/05/2025 Lab Requisition [facility] General Laboratory Services [address] [facility] [place] [address] Fran Mancilla, PICKING BELT OPERATOR Essential (primary) hypertension 03/04/2025 Telephone [facility] SportlyzerPemberton Mckenzie [place] [address] [place] [address] Srinivasa Anderson MD Needs Orders Written 03/04/2025 Orders Only [facility] Cancer and Hematology [place] [address] [place] [address] Elvia Espinosa, DUNGEON MASTER Iron deficiency anemia due to chronic blood loss (Primary Dx) 03/02/2025 Orders Only [facility] Cancer and Hematology [place] [address] [place] [address] Elvia Espinosa, DUNGEON MASTER Iron deficiency anemia due to chronic blood loss (Primary Dx); Anemia of chronic renal failure, unspecified CKD stage 03/02/2025 Orders Only [facility] Cancer and Hematology [facility] [address] [place] [address] [address] [place] [address] Elvia Espinosa, DUNGEON MASTER Iron deficiency anemia due to chronic blood loss (Primary Dx); Anemia of chronic renal failure, unspecified CKD stage; Anemia, chronic disease 03/02/2025 Orders Only [facility] Health Information Management [place] [address] [place] [address] Provider, Abstract 03/02/2025 Abstract [facility] [employer] [place] [address] [place] [address] Srinivasa Anderson MD 02/26/2025 Telephone [facility] [employer] [place] [address] [place] [address] Srinivasa Anderson MD Follow Up 02/26/2025 Orders Only [facility] [employer] [place] [address] [place] [address] Srinivasa Anderson MD 02/24/2025 3:00 PM PROFESSIONAL SERVICES MANAGER Office Visit [facility] [employer] [place] [address] [place] [address] Srinivasa Anderson MD 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) (Primary Dx); Rheumatoid arthritis of multiple sites with negative rheumatoid factor ([facility]/HCC); Rash; Lupus erythematosus overlap syndrome ([facility]/HCC); Pulmonary emphysema ([facility]/HCC); Need for influenza vaccination 02/24/2025 8:15 AM PROFESSIONAL SERVICES MANAGER - 02/24/2025 11:59 PM PROFESSIONAL SERVICES MANAGER Hospital Encounter [facility] Laboratory Services [address] [place] [phone] Oliver Andino MD Discharge Disposition: Home or Self Care 02/24/2025 Orders Only [facility] Cancer and Hematology [place] [address] [place] [phone] Oliver Andino MD Thrombocytopenia 02/23/2025 Orders Only [facility] Cancer and Hematology [place] [address] [place] [phone] Oliver Andino MD Thrombocytopenia (Primary Dx) 02/22/2025 Orders Only [facility] HIM [address] [place] [phone] Provider, Abstract 02/18/2025 Telephone [facility] Med-P[place] Mckenzie [place] [address] [phone] Srinivasa Anderson MD Needs Orders Written; Results 02/18/2025 Telephone [facility] Med-Pemberton Travis [place] [address] [place] [address] Srinivasa Anderson MD Remote Monitoring 02/18/2025 Results Follow-Up [facility] Med-Pemberton Travis [place] [address] [place] [address] Fran Mancilla, VERONIQUE XR CHEST PA AND LATERAL 2 VW 02/18/2025 Results Follow-Up [facility] Med-[place] Mckenzie [place] [address] [place] [address] Fran Mancilla, PICKING BELT OPERATOR BRAIN NATRIURETIC PEPTIDE, BNP OR PROBNP, CBC WITH DIFFERENTIAL, COMPREHENSIVE METABOLIC PANEL 02/17/2025 2:20 PM CDT - 02/17/2025 11:59 PM CDT Hospital Encounter [facility] Nilay Robles [place] [address] [place] [phone] Fran Mancilla, PICKING BELT OPERATOR Discharge Disposition: Home or Self Care 02/17/2025 2:00 PM CDT Office Visit [facility] Juan Luis-Nilay Robles [place] [address] [place] [address] Fran Mancilla, PICKING BELT OPERATOR Shortness of breath (Primary Dx); Rash; Positive ELINOR (antinuclear antibody) 02/17/2025 Lab Requisition [facility] Laboratory Services [address] [address] Fran Macnilla, PICKING BELT OPERATOR Shortness of breath 02/11/2025 Refill [facility] Juan Luis-Pemberton Travis [place] [address] [place] [address] Srinivasa Anderson MD 02/09/2025 Orders Only [facility] Juan Luis-Nilay Robles [place] [address] [place] [address] Srinivasa Anderson MD Anemia, unspecified type (Primary Dx); Hypocalcemia 02/09/2025 Telephone [facility] Juan Luis-Nilay Robles [place] [address] [place] [address] Srinivasa Anderson MD Results 02/05/2025 Nurse Triage [facility] Juan Luis-Nilay Robles [place] [address] [place] [address] Srinivasa Anderson MD 02/04/2025 Telephone [facility] Juan Luis-Nilay Robles [place] [address] [place] [address] Srinivasa Anderson MD Patient Communication 02/04/2025 Results Follow-Up [facility] [place] Luis[place]ay [place] [address] [place] [address] Fran Mancilla, VERONIQUE C-REACTIVE PROTEIN, CBC WITH DIFFERENTIAL, COMPREHENSIVE METABOLIC PANEL, Additional followed-up results: 4 02/03/2025 2:45 PM CDT Office Visit [facility] Jaun LuisNilay [place] [address] [place] [address] Fran Mancilla, VERONIQUE Rash (Primary Dx); Type 2 diabetes mellitus without complication, without long-term current use of insulin ([facility]); Stage 3b chronic kidney disease ([facility]) 01/26/2025 External Device Data STL ABSTRACTION Provider, Abstract 01/23/2025 [facility] [place] [address] [facility] [address] [place] [address] Srinivasa Anderson MD 01/14/2025 [facility] [place] [address] [place] [address] Srinivasa Anderson MD from Last 3 Months [...] on file Legal Sex Male 6:28 AM PROFESSIONAL SERVICES MANAGER Gender Identity Not on file Sexual Orientation Not on file Last Filed Vital Signs Vital Sign Reading Time Taken Comments Blood Pressure 126/62 03/26/2025 11:05 AM PROFESSIONAL SERVICES MANAGER Pulse 61 03/26/2025 11:05 AM PROFESSIONAL SERVICES MANAGER Temperature 36.5 C (97.7 F) 03/05/2025 10:47 AM PROFESSIONAL SERVICES MANAGER Respiratory Rate 18 02/24/2025 2:45 PM PROFESSIONAL SERVICES MANAGER Oxygen Saturation 95% 03/05/2025 10:47 AM PROFESSIONAL SERVICES MANAGER Inhaled Oxygen Concentration - - Weight 84.1 kg (185 lb 6.4 oz) 03/26/2025 11:05 AM PROFESSIONAL SERVICES MANAGER Height 193 cm (6' 4 ) 03/26/2025 11:05 AM PROFESSIONAL SERVICES MANAGER Body Mass Index 22.57 03/26/2025 11:05 AM PROFESSIONAL SERVICES MANAGER Plan of Treatment Upcoming Encounters Date Type Department Care Team (Late st Contact Info) Description 06/29/2025 8:00 AM CDT Procedure visit [facility] [address] [place] [address] Mariela Stone MD [address] [place] [phone] 07/08/2025 1:00 PM CDT Office Visit [facility] [address] [place] [phone] Kodak Samuel MD [address] [place] [address] 03/28/2026 11:00 AM PROFESSIONAL SERVICES MANAGER Office Visit [facility] [address] [place] [address] Dominic Haskins CRNP [address], [address] [place] [address] Mariela Stone MD [address] [place] [phone] Mayra Mohr NP [address], [address] [place] [phone] Health Maintenance Due Date Last Done Comments [...] nnual Wellness Visit 06/13/2024 06/12/2023 COVID-19 Vaccine ( - 2024-2 6 season) 2024 11/08/2020, 07/15/2020 [...] history exists Medical Devices Implanted Type Area Life Guard Device Identifier Shelf Expiration Date Model / Serial / Lot Dev Naomi Closure 35mm Watchman Flx [id number] - [id number] Implanted:Qty : 1 on 08/13/2022 at [facility] Cardiovascular Device N/A: Heart [employer] 10/25/2023 [id number] 350 / [id number] / [id number] Mitraclip G4 Dlvry Sys Ntw No Chrg [id number] - [id number] Implanted:Qty : 1 on 02/18/2023 at [facility] Cardiovascular Device Right: Heart [employer] 08/22/2023 [id number] / [id number] / [id number] Closure Perclose Prostyle Sut Mediate 91633-54 - [id number] Implanted:Qty : 1 on 08/13/2022 by Jaden Vital MD at [facility] Closure Device Right: Groin V[employer]AS[employer]- VASC DEVICE 04/21/2024 24984-25 / / [id number] Dev Manta Vasc Closure 18fr 211 - [id number] Implanted:Qty : 1 on 10/30/2022 at [facility] Closure Device Right: Groin [employer]LE[employer] 04/05/2023 [id number] / / [id number] Dev Sealangio Vip 8fr [id number] - [id number] Implanted:Qty : 1 on 10/30/2022 at [facility] Closure Device Left: Groin VELASCO [employer] 11/19/2022 [id number] / / [id number] Closure Perclose Prostyle Sut Mediate 18842-39 - [id number] Implanted:Qty : 1 on 02/18/2023 at [facility] Closure Device Right: Groin [employer]- VASC DEVICE 10/19/2024 79986-04 / / [id number] Closure Perclose Prostyle Sut Mediate 94554-60 - [id number] Implanted:Qty : 1 on 02/18/2023 at [facility] Closure Device Right: Groin [employer]- VASC DEVICE 10/19/2024 90926-91 / / [id number] Lens Io Tecnis 1pc 22.0 [id number] - [id number] Implanted:Qty : 1 on 08/23/2016 by Dominic Peralta MD Eye Left: Eye [employer] 10/20/2019 [id number] 20 / [id number] / Lens Io Tecnis 1pc 22.5 [id number] - [id number] Implanted:Qty : 1 on 09/06/2016 by Dominic Peralta MD Eye Right: Eye [employer] 12/19/2019 [id number] 25 / [id number] / Mesh Plug Perfix Xlg [id number] - [id number] Implanted:Qty : 1 on 08/13/2023 by Franci Kaplan Jr., MD at [facility] Mesh Left: Abdomen BARD DAVOL [id number] 01/18/2028 [id number] / / [id number] Pacemaker Micra Vr 23fr 105cm Transcath Pacing Sys [id number] - [id number] Implanted:Qty : 1 on 10/30/2022 by Mariela Stone MD at [facility] Pacemaker Heart [employer] 01/04/2024 [id number] / [id number] / Vlv Aort Evolut Fx Tavr 34mm Evolutfx-34 - [id number] Implanted:Qty : 1 on 10/30/2022 at [facility] Valve N/A: Heart [employer]- HEART VALVE 06/07/2024 EVOLUTFX -34 / [id number] / Dlvry Sys Evolut Fx 34mm K-Cmnmorqb-73 - S\E\240d-Evol utfx-34 Implanted:Qty : 1 on 10/30/2022 at [facility] Valve N/A: Heart [employer]- HEART VALVE 02/02/2024 D-EVOLUT FX-34 / \E\240D- EVOLUTFX -34 / [id number] Leadless Ppm Procedures Procedure Name Priority Date/Time Associated Diagnosis Comments RI PRGRMG DEV EVAL 1 LEAD PM/LDLS PM 1 CAR CHMBR IP Routine 03/29/2025 10:51 AM PROFESSIONAL SERVICES MANAGER Complete heart block (CMS/HCC) Persistent atrial fibrillation (CMS/HCC) RI ECG ROUTINE ECG W/LEAST 12 LDS W/I&R Routine 03/26/2025 11:21 AM PROFESSIONAL SERVICES MANAGER Benign hypertension BASIC METABOLIC PANEL Routine 03/10/2025 12:43 PM PROFESSIONAL SERVICES MANAGER Low serum potassium BASIC METABOLIC PANEL Stat 03/05/2025 12:33 PM PROFESSIONAL SERVICES MANAGER Essential (primary) hypertension EXTRA TUBE (LAV) Routine 03/05/2025 12:3 3 PM PROFESSIONAL SERVICES MANAGER Essential (primary) hypertension BRAIN NATRIURETIC PEPTIDE, BNP OR PROBNP Stat 03/05/2025 12:33 PM PROFESSIONAL SERVICES MANAGER Essential (primary) hypertension TICK-BORNE DISEASE AB PANEL W/REFLEX Routine 03/05/2025 12:32 PM PROFESSIONAL SERVICES MANAGER Tick bite, unspecified site, initial encounter FOLATE, SERUM Routine 03/05/2025 12:32 PM PROFESSIONAL SERVICES MANAGER Iron deficiency anemia due to chronic blood loss VITAMIN B12 LEVEL Routine 03/05/2025 12: 32 PM PROFESSIONAL SERVICES MANAGER Iron deficiency anemia due to chronic blood loss FERRITIN Routine 03/05/2025 12:32 PM PROFESSIONAL SERVICES MANAGER Iron deficiency anemia due to chronic blood loss IRON, TIBC, AND PERCENT SATURATION Routine 03/05/2025 12:32 PM PROFESSIONAL SERVICES MANAGER Iron deficiency anemia due to chronic blood loss COMPREHENSIVE METABOLIC PANEL Routine 03/05/2025 12:32 PM PROFESSIONAL SERVICES MANAGER Iron deficiency anemia due to chronic blood loss CBC WITH DIFFERENTIAL Routine 03/05/2025 12:32 PM PROFESSIONAL SERVICES MANAGER Iron deficiency anemia due to chronic blood loss PERIPHERAL BLOOD SMEAR PATHOLOGY INTERP Stat 02/24/2025 1:40 PM PROFESSIONAL SERVICES MANAGER Thrombocytopenia COMPREHENSIVE METABOLIC PANEL Stat 02/24/2025 1:40 PM PROFESSIONAL SERVICES MANAGER Thrombocytopenia CBC WITH DIFFERENTIAL Stat 02/24/2025 1:40 PM PROFESSIONAL SERVICES MANAGER Thrombocytopenia RETICULOCYTES Routine 02/24/2025 1:21 PM PROFESSIONAL SERVICES MANAGER Thrombocytopenia HAPTOGLOBIN Routine 02/24/2025 1:21 PM PROFESSIONAL SERVICES MANAGER Thrombocytopenia PROTEIN ELECTROPHORESIS W/REFLEX,SERUM Routine 02/24/2025 1:21 PM PROFESSIONAL SERVICES MANAGER Thrombocytopenia KAPPA/LAMBDA LIGHT CHAINS Routine 02/24/2025 1:21 PM PROFESSIONAL SERVICES MANAGER Thrombocytopenia IRON, TIBC, AND PERCENT SATURATION Routine 02/24/2025 1:21 PM PROFESSIONAL SERVICES MANAGER Thrombocytopenia FERRITIN Routine 02/24/2025 1:21 PM PROFESSIONAL SERVICES MANAGER Thrombocytopenia VITAMIN B12 AND FOLATE Routine 1:21 PM PROFESSIONAL SERVICES MANAGER Thrombocytopenia METHYLMALONIC ACID Routine 02/24/2025 1: 21 PM PROFESSIONAL SERVICES MANAGER Thrombocytopenia MISCELLANEOUS LAB TEST Routine 1:21 PM PROFESSIONAL SERVICES MANAGER Thrombocytopenia COMPREHENSIVE METABOLIC PANEL Routine 02/18/2025 11:14 [...] complication, without long-term current use of insulin ([facility]) COMPREHENSIVE METABOLIC PANEL Routine 02/03/2025 3:11 PM [...] Recently Relevant to Health Maintenance Results * RI PRGRMG DEV EVAL 1 LEAD PM/LDLS PM 1 CAR CHMBR IP (03/29/2025 10:51 AM PROFESSIONAL SERVICES MANAGER) Narrative [facility] - 03/29/2025 10:51 AM PROFESSIONAL SERVICES MANAGER Rajni Blanco 03/29/2025 10:52 AM Office Device Check By Vendor Strategy Manager Date of Procedure: March 26, 2025 Life Guard: [employer] Comments: Office check by [employer] parts representative in conjunction w/ EP office visit. Interrogation reviewed by provider. Please see scan for details. Procedure Note Rajni Blanco - 03/29/2025 10:51 AM CST Office Device Check By Vendor Strategy Manager Date of Procedure: March 26, 2025 Life Guard: [employer] Comments: Office check by [employer] parts representative in conjunction w/ EPoffice visit. Interrogation reviewed by provider. Please see scan for details. us Mariela Stone MD CARDIAC SERVICES ORDERA BLES Final Result Performing Organization Address [facility] Co de Phone Number [facility] [address] [place] [address] * RI ECG ROUTINE ECG W/LEAST 12 LDS W/I&R (03/26/2025 11:21 AM PROFESSIONAL SERVICES MANAGER) Narrative [facility] - 03/26/2025 11:21 AM PROFESSIONAL SERVICES MANAGER Dominic Haskins CRNP 03/26/2025 12:05 PM 12 Lead EKG: Rhythm: Ventricular paced rhythm-abnormal ECG, ventricular rate 61 bpm, RI interval / ms, QRS duration 186 ms, QTc 515 ms Procedure Note Dominic Haskins CRNP - 03/26/2025 11:21 AM CST 12 Lead EKG: Rhythm: Ventricular paced rhythm-abnormal ECG, ventricularrate 61 bpm, RI interval / ms, QRS duration 186 ms, QTc 515 ms Dominic GUTIÉRREZ ECG ORDERABLES Final Re sult Performing Organization Address [facility] Co de Phone Number [facility] CLIA [id number] [address] [facility] [address] [place] [address], [place] [phone] * (ABNORMAL) BASIC METABOLIC PANEL (03/10/2025 12:43 PM PROFESSIONAL SERVICES MANAGER) Only the most recent of2 resultswithin the time period is included. [facility] GLUCOSE 102 65 - 139 mg/dL [facility] Comment: Non-fasting reference interval BUN 79(H) 7 - 25 mg/dL [facility] CREATININE 1.48(H) 0.70 - 1.22 mg/dL [facility] RR GFR 46(L) > OR = 60 mL/min/1.7 3m2 [facility] BUN/CREAT RATIO 53(H) 6 - 22 (calc) [facility] SODIUM 144 135 - 146 mmol/L [facility] POTASSIUM 3.8 3.5 - 5.3 mmol/L [facility] CHLORIDE 105 98 - 110 mmol/L [facility] CO2 32 20 - 32 mmol/L [facility] CALCIUM 9.1 8.6 - 10.3 mg/dL [facility] RR Comment: FASTING:NO FASTING: NO Test Performed at: [facility] [address] [place] [address] Александр Oviedo Blood 03/10/2025 12:4 3 PM PROFESSIONAL SERVICES MANAGER 03/10/2025 12:44 PM PROFESSIONAL SERVICES MANAGER Fran Mancilla NP CHEMISTRY ORDERABLES Final Resu lt Performing Organization Address City/[facility] Co de Phone Number [facility] [phone] [facility] [address] [place] [address] * EXTRA TUBE (LAV) (03/05/2025 12:33 PM PROFESSIONAL SERVICES MANAGER) Blood Collection / Unknown 03/05/2025 12:33 PM PROFESSIONAL SERVICES MANAGER 03/05/2025 2:22 PM PROFESSIONAL SERVICES MANAGER Fran Mancilla NP HEMATOLOGY ORDERABLES Final Res ult Performing Organization Address City/[facility]/ZIP Co de Phone Number [facility] [employer] [id number] [address] [address] * (ABNORMAL) BRAIN NATRIURETIC PEPTIDE, BNP OR PROBNP (03/05/2025 12:33 PM PROFESSIONAL SERVICES MANAGER) Only the most recent of2 resultswithin the time period is included. PROBNP, N TERMINAL 3,436(H) 0 - 450 pg/mL 03/05/2025 2:43 PM PROFESSIONAL SERVICES MANAGER [facility] LABORATORY [facility] Comment: INTERPRETIVE COMMENT based on diagnosis: [...] Blood Collection / Unknown 03/05/2025 12:33 PM PROFESSIONAL SERVICES MANAGER 03/05/2025 2:21 PM PROFESSIONAL SERVICES MANAGER us Fran Mancilla NP CHEMISTRY ORDERABLES Final Resu lt [facility] [id number] [address] [place] [id number] * TICK-BORNE DISEASE AB PANEL W/REFLEX (03/05/2025 12:32 PM PROFESSIONAL SERVICES MANAGER) Pathologist [facility] A.PHAGOCYTOPH IGG <1:64 [facility], A.PHAGOCYTOPH IGM <1:20 [facility], ANAPLASMA PHAGOCYTOPHILUM INTERP [facility], Comment: ANTIBODY NOT DETECTED REFERENCE RANGE: IgG <1:64 IgM <1:20 Anaplasma phagocytophilum is the tick-borne agent causing Human Granulocytic Ehrlichiosis (HGE). HGE is distinct and separate from Human Monocytic Ehrlichiosis (HME), caused by Ehrlichia chaffeensis. Serologic cross-reactivity between A. phagocytophilum and E. Chaffeensis is minimal (5-15%). This test was developed and its analytical performance characteristics have been determined by [employer]. It has not been cleared or approved by FDA. This assay has been validated pursuant to the CLIA regulations and is used for clinical purposes. BABESIA DUNCANI/WA1 IGG AB <1:256 [facility] [employer]/ [facility], Comment: REFERENCE RANGE: <1:256 INTERPRETIVE CRITERIA: <1:256 Antibody not detected > or = 1:256 Antibody detected Babesia duncani, also known as WA1, has been associated with symptoms similar to those caused by Babesia microti. Little, if any, cross-reactivity occurs between Babesia microti and WA1. This test was developed and its analytical performance characteristics have been determined by [facility]. It has not been cleared or approved by FDA. This assay has been validated pursuant to the CLIA regulations and is used for clinical purposes. BABESIA MICROTI IGG AB <1:64 titer [facility]/ [facility], BABESIA MICROTI IGM AB <1:20 titer [facility]/ [facility], BABESIA MICROTI INTERPRETATION [facility]/ [facility], Comment: ANTIBODY NOT DETECTED REFERENCE RANGES: IgG [...] analytical performance characteristics have been determined by [facility]. It has not been cleared or approved by FDA. This assay has been validated pursuant to the CLIA regulations and is used for clinical purposes. LYME IGG, IGM AB <0.90 INDEX Que [facility]/ [facility], Comment: REFERENCE RANGE: <0.90 Index Interpretation < [...] is apparent. EHRLICHIA CHAFFEENSIS IGG AB <1:64 [facility], EHRLICHIA CHAFFEENSIS IGM AB <1:20 [facility], EHRLICHIA CHAFFEENSIS INTERP [facility]/ [facility], Comment: ANTIBODY NOT DETECTED REFERENCE RANGE: IgG [...] analytical performance characteristics have been determined by [facility]. It has not been cleared or approved by FDA. This assay has been validated pursuant to the CLIA regulations and is used for clinical purposes. FASTING:NO FASTING: NO Test Performed at: [facility] [facility], [address] [place] [address] Magda Bynum MD,PhD,RICH Blood 03/05/2025 12:3 2 PM PROFESSIONAL SERVICES MANAGER 03/05/2025 12:33 PM PROFESSIONAL SERVICES MANAGER us Fran Mancilla NP CHEMISTRY ORDERABLES Final Resu lt [facility] [phone] [employer] [facility]havik [facility], [address] [place] [address] * FOLATE, SERUM (03/05/2025 12:32 PM PROFESSIONAL SERVICES MANAGER) Pathologist [facility] FOLATE, SERUM 19.5 ng/mL [facility] Comment: Reference Range Low: <3.4 Borderline: 3.4-5.4 Normal: >5.4 Test Performed at: [facility] [address] [place] [address] Arminda Velasco MD Blood 03/05/2025 12:3 2 PM PROFESSIONAL SERVICES MANAGER 03/05/2025 12:33 PM PROFESSIONAL SERVICES MANAGER Elvia Espinosa [facility] CHEMISTRY ORDERABLES Final Re sult Performing Organization Address [facility] Co de Phone Number [facility] [phone] [address] * (ABNORMAL) IRON, TIBC, AND PERCENT SATURATION (03/05/2025 12:32 PM PROFESSIONAL SERVICES MANAGER) Only the most recent of3 resultswithin the time period is included. Pathologist [facility] IRON 34(L) 50 - 180 mcg/dL [facility] TIBC 353 250 - 425 mcg/dL (calc) [facility] IRON % SATURATION 10(L) 20 - 48 % (calc) [facility] Comment: Test Performed at: [facility] [address] [place] [address] Arminda Velasco MD Blood 03/05/2025 12:3 2 PM PROFESSIONAL SERVICES MANAGER 03/05/2025 12:33 PM PROFESSIONAL SERVICES MANAGER Elvia SAGASTUMEP CHEMISTRY ORDERABLES Final Re sult Performing Organization Address City/[facility]/ZIP Co de Phone Number [facility] [phone] [address] * (ABNORMAL) CBC WITH DIFFERENTIAL (03/05/2025 12:32 PM PROFESSIONAL SERVICES MANAGER) Only the most recent of5 resultswithin the [...] Comment: FASTING:NO FASTING: NO Test Performed at: [facility] [address] [place] [address] Александр Sarah Oviedo Blood 03/05/2025 12:3 2 PM PROFESSIONAL SERVICES MANAGER 03/05/2025 12:33 PM PROFESSIONAL SERVICES MANAGER Elvia Espinosa [facility] HEMATOLOGY ORDERABLES Final R esult Performing Organization Address City/[facility]/ZIP Co de Phone Number [facility] [phone] [facility] [address] [place] [address] * (ABNORMAL) FERRITIN (03/05/2025 12:32 PM PROFESSIONAL SERVICES MANAGER) Only the most recent of3 resultswithin the time period is included. FERRITIN 549(H) 24 - 380 ng/mL [facility] Comment: Test Performed at: [facility] [address] [address] Arminda Velasco MD Blood 03/05/2025 12:3 2 PM PROFESSIONAL SERVICES MANAGER 03/05/2025 12:33 PM PROFESSIONAL SERVICES MANAGER Elvia SAGASTUMEP CHEMISTRY ORDERABLES Final Re sult Performing Organization Address City/[facility]/ZIP Co de Phone Number [facility] [phone] [facility] [address] [place] [address] * VITAMIN B12 LEVEL (03/05/2025 12:32 PM PROFESSIONAL SERVICES MANAGER) VITAMIN B12 534 200 - 1100 pg/mL [facility] Comment: FASTING:NO FASTING: NO Test Performed at: [facility] [address] [address] Arminda Velasco MD Blood 03/05/2025 12:3 2 PM PROFESSIONAL SERVICES MANAGER 03/05/2025 12:33 PM PROFESSIONAL SERVICES MANAGER us Elvia Espinosa [facility] CHEMISTRY ORDERABLES Final Re sult [facility] [phone] [facility] [address] [address] * (ABNORMAL) COMPREHENSIVE METABOLIC PANEL (03/05/2025 12:32 PM PROFESSIONAL SERVICES MANAGER) Only the most recent of7 resultswithin the time period is included. GLUCOSE 118 65 - 139 mg/dL [facility] Comment: Non-fasting reference interval BUN 66(H) 7 - 25 mg/dL [facility] CREATININE 1.77(H) 0.70 - 1.22 mg/dL [facility] GFR 37(L) > OR = 60 mL/min/1.7 3m2 [facility] BUN/CREAT RATIO 37(H) 6 - 22 (calc) [facility] SODIUM 134(L) 135 - 146 mmol/L [facility] POTASSIUM 3.5 3.5 - 5.3 mmol/L [facility] CHLORIDE 93(L) 98 - 110 mmol/L [facility] CO2 31 20 - 32 mmol/L [facility] CALCIUM 8.3(L) 8.6 - 10.3 mg/dL [facility] TOTAL PROTEIN 7.5 6.1 - 8.1 g/dL [facility] ALBUMIN 3.6 3.6 - 5.1 g/dL [facility] GLOBULIN 3.9(H) 1.9 - 3.7 g/dL (calc) [facility] ALBUMIN/GLOBULIN RATIO 0.9(L) 1.0 - 2.5 (calc) [facility] BILIRUBIN TOTAL 1.0 0.2 - 1.2 mg/dL [facility] ALKALINE PHOSPHATASE 90 35 - 144 U/L [facility] AST 27 10 - 35 U/L [facility] ALT 20 9 - 46 U/L [facility] Comment: FASTING:NO FASTING: NO Test Performed at: [facility] RR [address] [place] [address] Александр Oviedo Blood 03/05/2025 12:3 2 PM PROFESSIONAL SERVICES MANAGER 03/05/2025 12:33 PM PROFESSIONAL SERVICES MANAGER Elvia Espinosa DUNGEON MASTER CHEMISTRY ORDERABLES Final Re sult Performing Organization Address City/[facility] Co de Phone Number [facility] [phone] [facility] RR [address] [place] [address] * PERIPHERAL BLOOD SMEAR PATHOLOGY INTERP (02/24/2025 1:40 PM PROFESSIONAL SERVICES MANAGER) Pathologist [facility] PERIPHERAL BLOOD SMEAR INTERP 02/24/2025 6:05 PM PROFESSIONAL SERVICES MANAGER [facility] Comment:Does not meet criter ia. Blood Venipuncture / Unknown 02/24/2025 1:40 PM PROFESSIONAL SERVICES MANAGER 02/24/2025 1:51 PM PROFESSIONAL SERVICES MANAGER Oliver Andino MD HEMATOLOGY ORDERABLES Final R esult Performing Organization Address [facility] Co de Phone Number [facility] CLIA # [id number] [address] [place] [address] [place] [address] * MISCELLANEOUS LAB TEST (02/24/2025 1:21 PM PROFESSIONAL SERVICES MANAGER) MISCELLANEOUS LAB TEST REPORT [employer] [facility] Comment: IMMUNOFIXATION, SERUM TEST NAME RESULT FLAG UNITS REF RANGE ========= ====== ==== ===== ========= LASHAWN INTERPRETATION SEE COMMENT RESULT COMMENT: Normal pattern. No monoclonal proteins detected. Test Performed at: [facility] [place] [address] [facility] [address] [place] Flavio Ascencio M.D.,PhD Blood 02/24/2025 1:21 PM PROFESSIONAL SERVICES MANAGER 02/24/2025 6:45 PM PROFESSIONAL SERVICES MANAGER Oliver Andino MD CHEMISTRY ORDERABLES Final Re sult Performing Organization Address [facility]/ZIP Co de Phone Number [facility] [phone] [employer] [facility]/Bhavik [facility] [address] [facility] [place], [place] * VITAMIN B12 AND FOLATE (02/24/2025 1:21 PM PROFESSIONAL SERVICES MANAGER) VITAMIN B12 591 200 - 1100 pg/mL [facility] FOLATE, SERUM >24.0 ng/mL [facility] Comment: Reference Range Low: <3.4 Borderline: 3.4-5.4 Normal: >5.4 Test Performed at: [facility] [address] [place] [address] Arminda Velasco MD Blood 02/24/2025 1:21 PM PROFESSIONAL SERVICES MANAGER 02/24/2025 6:46 PM PROFESSIONAL SERVICES MANAGER Oliver Andino MD CHEMISTRY ORDERABLES Final Re sult Performing Organization Address [facility] Co de Phone Number [facility] [phone] [facility] [address] [address] * (ABNORMAL) METHYLMALONIC ACID (02/24/2025 1:21 PM PROFESSIONAL SERVICES MANAGER) METHYLMALONIC ACID 456(H) 85 - 423 nmol/L [...] neural tube defects and intrauterine growth restriction. [facility] utilized Multi-Modal Decomposition (MMD) analysis to establish first and second trimester-specific MMA reference intervals in , as given below: MMA, First trimester (<13 wks gestation): 58-167 nmol/L MMA, Second trimester (13-23 wks gestation): 63-241 nmol/L Note 1 This test was developed and its analytical performance characteristics have been determined by [facility]. It has not been cleared or approved by the FDA. This assay has been validated pursuant to the CLIA regulations and is used for clinical purposes. Test Performed at: [facility] [address] Alfa Flores Blood 02/24/2025 1:21 PM PROFESSIONAL SERVICES MANAGER 02/24/2025 6:46 PM PROFESSIONAL SERVICES MANAGER Oliver Andino MD CHEMISTRY ORDERABLES Final Re sult [facility] [phone] [employer] [address] [address] * (ABNORMAL) KAPPA/LAMBDA, FREE LIGHT CHAINS (02/24/2025 1:21 PM PROFESSIONAL SERVICES MANAGER) KAPPA FREE LIGHT CHAIN 69.6(H) 3.3 - 19.4 mg/L [facility] [place] LAMBDA FREE LIGHT CHAIN 59.4(H) 5.7 - 26.3 mg/L [facility] [place] KAPPA/LAMBDA LIGHT CHAIN RATIO 1.17 0.26 - 1.65 [facility] [place] Comment: Free kappa/lambda ratio in serum of [...] therapy of these disorders. Test Performed at: [facility] [address] [facility] [place] [address] Arminda Velasco MD Blood 02/24/2025 1:21 PM PROFESSIONAL SERVICES MANAGER 02/24/2025 6:46 PM PROFESSIONAL SERVICES MANAGER Oliver Andino MD CHEMISTRY ORDERABLES Final Re sult Performing Organization Address [facility]/ZIP Co de Phone Number [facility] [phone] [facility] [address] [facility] [place] [address] * (ABNORMAL) RETICULOCYTES (02/24/2025 1:21 PM PROFESSIONAL SERVICES MANAGER) RETICULOCYTES 2.7 % [facility] RETICULOCYTE, ABSOLUTE 104,490(H ) 25,000 - 90,000 cells/uL [facility] Comment: Test Performed at: [facility] [address] [facility] [place] [address] Arminda Velasco MD Blood 02/24/2025 1:21 PM PROFESSIONAL SERVICES MANAGER 02/24/2025 6:46 PM PROFESSIONAL SERVICES MANAGER Oliver Andino MD HEMATOLOGY ORDERABLES Final R esult Performing Organization Address [facility]/ZIP Co de Phone Number [facility] [phone] [facility] [address] [facility] [place] [address] * (ABNORMAL) PROTEIN ELECTROPHORESIS W/REFLEX,SERUM (02/24/2025 1:21 PM PROFESSIONAL SERVICES MANAGER) TOTAL PROTEIN 7.0 6.1 - 8.1 g/dL [...] restricted band (M-spike) seen. Test Performed at: [facility] [address] [place] [address] Arminda Velasco MD Blood 02/24/2025 1:21 PM PROFESSIONAL SERVICES MANAGER 02/24/2025 6:46 PM PROFESSIONAL SERVICES MANAGER Oliver Andino MD CHEMISTRY ORDERABLES Final Re sult Performing Organization Address City/[facility]/ZIP Co de Phone Number [facility] [phone] [facility] [address] * (ABNORMAL) HAPTOGLOBIN (02/24/2025 1:21 PM PROFESSIONAL SERVICES MANAGER) HAPTOGLOBIN 39(L) 43 - 212 mg/dL [facility] Comment: Test Performed at: [facility] [place] [address] Arminda Velasco MD Blood 02/24/2025 1:21 PM PROFESSIONAL SERVICES MANAGER 02/24/2025 6:46 PM PROFESSIONAL SERVICES MANAGER Oliver Andino MD CHEMISTRY ORDERABLES Final Re sult [facility] [phone] [facility] [address] * PROTIME-INR (02/18/2025) ABSTRACTED PROTIME 14.4 ABSTRACTED [...] ORDERABLES Final Resul t EXTERNAL LAB * (ABNORMAL) SEDIMENTATION RATE (02/03/2025 3:11 PM CDT) Pathologist [facility] ESR (SEDIMENTATION RATE) 25(H) < OR = 20 mm/h [facility] Comment: FASTING:NO FASTING: NO Test Performed at: [facility] [address] [place] [address] Александр Oviedo Blood 02/03/2025 3:11 PM CDT 02/03/2025 3:12 PM CDT us Fran Mancilla NP HEMATOLOGY ORDERABLES Final Res ult Performing Organization Address City/[facility]/ZIP Co de Phone Number [facility] [phone] [facility] [address] [place] [address] * RHEUMATOID FACTOR (02/03/2025 3:11 PM CDT) Pathologist [facility] RHEUMATOID FACTOR <10 <14 IU/mL [facility] Comment: Test Performed at: [place] [address] Arminda Velasco MD Blood 02/03/2025 3:11 PM CDT 02/03/2025 3:12 PM CDT us Fran Mancilla NP CHEMISTRY ORDERABLES Final Resu lt Performing Organization Address City/[facility]/ZIP Co de Phone Number [facility] [phone] [facility] [address] [place] [address] * (ABNORMAL) C-REACTIVE PROTEIN (02/03/2025 3:11 PM CDT) Pathologist [facility] CRP 8.8(H) <8.0 mg/L [facility] Comment: FASTING:NO FASTING: NO Test Performed at: [facility] [address] [place] [address] Arminda Velasco MD Blood 02/03/2025 3:11 PM CDT 02/03/2025 3:12 PM CDT us Fran Mancilla NP CHEMISTRY ORDERABLES Final Resu lt [facility] [phone] [facility] [address] [address] * (ABNORMAL) ELINOR SCREEN W/REFLEX (02/03/2025 3:11 PM CDT) ELINOR SCREEN POSITIVE( A) NEGATIVE [facility] [place] Comment: ELINOR IFA is a first line screen for detecting the presence of up to approximately 150 autoantibodies in various autoimmune diseases. A positive ELINOR IFA result is suggestive of autoimmune disease and reflexes to titer, pattern and the 3 tiered Multiplex 11 Antibody Selma. Testing in the Selma stops at the first positive result, and does not preclude additional positive results. Further laboratory testing may be considered if clinically indicated. For additional information, please refer to http://education.Convrrt/faq/VVH907 (This link is being provided for informational/ educational purposes only.) ELINOR TITER 1:1280(H) titer [facility] [place] Comment: Reference Range <1:40 Negative 1:40-1:80 Low Antibody Level >1:80 Elevated Antibody Level ELINOR PATTERN Nuclear, Speckled( A) [facility] [place] Comment: Speckled pattern is associated with mixed connective tissue disease (MCTD), systemic lupus erythematosus (SLE), Sjogren's syndrome, dermatomyositis, and systemic sclerosis/polymyositis overlap. AC-2,4,5,29: Speckled International Consensus on ELINOR Patterns (https://doi.org/10.1515/sgod-9231-8030) DNA AUTOABS DOUBLE STRANDED <1 IU/mL [facility] [place] Comment: IU/mL Interpretation < or = 4 Negative 5-9 Indeterminate > or = 10 Positive PEMB[place]ON IGG AB <1.0 NEG <1.0 NEG AI [facility] [place] NEYDA ABS, SM/LEGAL SUPPORT ASSISTANT AB <1.0 NEG <1.0 NEG AI [facility] [place] LEGAL SUPPORT ASSISTANT AB <1.0 NEG <1.0 NEG AI [facility] [place] CHROMATIN (NUCLEOSOMAL) ANTIBODY <1.0 NEG <1.0 NEG AI [facility] [place] SJOGRENS ABS (SSA) >8.0 POS(A) <1.0 NEG [facility] [place] SJOGRENS ABS (SSB) >8.0 POS(A) <1.0 NEG [facility] [place] SCLERODERMA AB SCL 70 <1.0 NEG <1.0 NEG [facility] [place] JO1 AB <1.0 NEG <1.0 NEG [facility] [place] Comment: ANTIBODY PREVALENCE IN TIER 2 SS-A [...] in <2% of normal blood donors. The Selma does not rule out autoimmune disease characterized by other autoantibody specificities such as rheumatoid arthritis, autoimmune hepatitis, primary biliary cirrhosis, autoimmune thyroiditis, Richar's disease, pernicious anemia, autoimmune neuropathies, vasculitis, celiac disease and bullous disease. Please contact your local [facility] laboratory if you are interested in additional testing. ELINOR PROFILE INTERP [facility] [place] Comment: This finding suggests Sjogren's syndrome. These antibodies may occasionally be positive early in other connective tissue diseases. A positive result at this stage of testing stops further testing, and does not preclude additional positive antibodies. Clinical correlation is required to assess the need for testing additional analytes. FASTING:NO FASTING: NO Test Performed at: [facility] [address] [place] [address] Arminda Velasco MD Blood 02/03/2025 3:11 PM CDT 02/03/2025 3:12 PM CDT Fran Mancilla NP CHEMISTRY ORDERABLES Final Resu lt Performing Organization Address [facility] Co de Phone Number [facility] [phone] [facility] [address] [facility] [place] [address] * (ABNORMAL) HEMOGLOBIN A1C (02/03/2025 3:11 PM CDT) HEMOGLOBIN A1C 6.2(H) <5.7 % [facility] [...] [facility] ESTIMATED AVERAGE GLUCOSE (MMOL/L) 7.3 mmol/L [facility] Comment: FASTING:NO FASTING: NO Test Performed at: [facility] [address] [facility] [place] [address] Arminda Velasco MD Blood 02/03/2025 3:11 PM CDT 02/03/2025 3:12 PM CDT us Fran Mancilla NP CHEMISTRY ORDERABLES Final Resu lt Performing Organization Address [facility]/ZIP Co de Phone Number [facility] [phone] [facility] [address] [facility] [place] [place] [address] * (ABNORMAL) LIPID PANEL (08/03/2024 11:38 AM CDT) CHOLESTEROL 133 <200 mg/dL [facility] RR HDL 36(L) > OR = 40 mg/dL [facility] RR TRIGLYCERIDE 71 <150 mg/dL [facility] RR LDL CALCULATED 82 mg/dL (calc) [facility] Comment: Reference range: <100 Desirable range <100 mg/dL for primary prevention; <70 mg/dL for patients with CHD or diabetic patients with > or = 2 CHD risk factors. LDL-C is now calculated using the Celine calculation, which is a validated novel method providing better accuracy than the Friedewald equation in the estimation of LDL-C. Wilber SS et al. MAGDA. 2013;310(19): 6815-7399 (http://education.Convrrt/faq/VMS348) CHOL/HDL RATIO 3.7 <5.0 (calc) [facility] NON-HDL CHOLESTEROL 97 <130 mg/dL (calc) [facility] Comment: For patients with diabetes plus 1 major ASCVD risk factor, treating to a non-HDL-C goal of <100 mg/dL (LDL-C of <70 mg/dL) is considered a therapeutic option. Test Performed at: [facility] [address] [place] [address] Александр Oviedo Blood 08/03/2024 11:3 8 AM CDT 08/03/2024 11:38 AM CDT us Srinivasa Anderson MD CHEMISTRY ORDERABLES Final Resul t [facility] [phone] [facility] [address] [place] [address] * COLONOSCOPY REPORT (11/30/2022 11:16 AM CDT) Narrative Procedure Note Herman Schmitz MD - 11/30/2022 11:16 AM CDT [facility] Patient Name: Franci Hernandez Procedure Date: [...] bowel preparation was evaluated using the BBPS ([place] Bowel Preparation Scale) with scores of: Right [...] AM Scope Out: 11:13:34 AM [address] [place], [place] Herman Schmitz MD GI PROCEDURE ORDERABLES Final Result * DIABETES EYE EXAM (07/16/2022 10:57 AM CDT) Abstract Provider HEALTH MAINTENANCE Final Resul t * (ABNORMAL) MICROALBUMIN/CREATININE RATIO, RANDOM UR (11/09/2019 9:43 AM CDT) MICROALBUMIN, URINE 5.3 No Reference Range mg/dL 11/09/2019 9:33 PM CDT [facility] CREATININE, URINE 139.7 40.0 - 278.0 mg/dL 11/09/2019 9:33 PM CDT [facility] Comment:Reference Range vari es with fluid intake and diet. MICROALBUMIN/ CREAT RATIO, UR 37.9(H) <17.0 mg/g 11/09/2019 9:33 PM CDT [facility] Urine URINE SPECIMEN OBTAINED BY CLEAN CATCH PROCEDURE / Unknown Collection / Unknown 11/09/2019 9:43 AM CDT 11/09/2019 8:19 PM CDT Jason [facility] - 11/09/2019 9:33 PM CDT Condition Microalbumin/Creat ratio Normal Males <17 Normal Females <25 Microalbuminuria Males 17-299 Microalbuminuria Females 25-299 Overt proteinuria >=300 Srinivasa Anderson MD URINE ORDERABLES Final Result [facility]-[place] [facility]# [id number] [address] [place] [address] from Last 3 Months or Most Recently Relevant to Health Maintenance Insurance [address] [place] [address] [facility] [id number] MEDICARE PART A AND B * Guarantor: FRANCI HERNANDEZ Account Type Relation to Patient Date of Phone Billing Address Personal/Family [address] [place] [address] RX [employer] Medicare Part B RX [employer] Medicare Part D Advance Directives For more information, please contact: [phone] * Full Code (Latest Code Status on [...] 5:53 PM 01/29/2023 5:47 PM Care Teams Fund Controller Relationship Specialty Start Date End Date Srinivasa Anderson MD [address] [phone] PCP - General Family Practice 05/18/24
--- OUTSIDE RECORDS SUMMARY | 2025-04-10 06:35 | XMS_ITS | Encounter Summary ---
Author Organization [facility] Address [address] [facility] [place] [address] Care Team Providers Care Medical Physiologist Name Role Phone Srinivasa Anderson MD Primary Care Provider Encounter Details Date Type Department Care Team (Latest Contact Info) Description 05/07/2003 Outpatient Historical [facility] Int [facility] [place] [place] [address] Makr Lux MD [address] [place] [address] HYPERTENSION NOS (Primary Dx); Pure hypercholesterolem Social History Tobacco Use Types Packs/Day Years Used Date Smoking Tobacco: Never Assessed Sex and Gender Information Value Date Recorded Sex Assigned at Not on file 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
--- OUTSIDE RECORDS SUMMARY | 2025-04-10 06:35 | XMS_ITS | Encounter Summary ---
Author Organization [facility] Address [address] [place] [address] Care Team Providers Care Material Damage Adjuster Name Role Phone Srinivasa Anderson MD Primary Care Provider Encounter Details Date Type Department Care Team (Latest Contact Info) Description 03/25/2003 Outpatient Historical [facility] Dermatology- [facility] [address] [place] [address] Zoltan Mahoney MD NO ADDRESS ON FILE ACTINIC KERATOSIS (Primary Dx); Inflamed seborr keratos; SEBORRHEIC KERATOSIS NOS Social History Tobacco Use Types Packs/Day Years Used Date Smoking Tobacco: Never Assessed Sex and Gender Information Value Date Recorded Sex Assigned at Not on file 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
--- OUTSIDE RECORDS SUMMARY | 2025-04-10 06:35 | XMS_ITS | Encounter Summary ---
Author Organization [facility] Address [address] [place] [address] Care Team Providers Care Guardian Family Member Name Role Phone Srinivasa Anderson MD Primary Care Provider [phone] Encounter Details Date Type Department Care Team (Latest Contact Info) Description 01/26/2005 Outpatient Historical [facility] [place] [place] [address] Srinivasa Anderson MD [address] [place] [address] ANXIETY STATE NOS (Primary Dx); IMPOTENCE, ORGANIC ORIGN; MALAISE AND FATIGUE NEC; TESTICULAR HYPOFUNC NEC Social History Tobacco Use Types Packs/Day Years Used Date Smoking Tobacco: Never Assessed Sex and Gender Information Value Date Recorded Sex Assigned at Not on file 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
--- OUTSIDE RECORDS SUMMARY | 2025-04-10 06:35 | XMS_ITS | Encounter Summary ---
Author Organization [facility] Address [address] [facility] [place] [address] Care Team Providers Care Vp Global Marketing Solutions Name Role Phone Srinivasa Anderson MD Primary Care Provider Encounter Details Date Type Department Care Team (Latest Contact Info) Description 01/17/2005 Outpatient Historical [facility] Podiatry-Nilay Robles M[place] [address] [place] [address] Juma Eng, DPM [address] [place] [address] GANGLION OF JOINT (Primary Dx); BUNION; EXOSTOSIS, SITE NOS Social History Tobacco Use Types Packs/Day Years Used Date Smoking Tobacco: Never Assessed Sex and Gender Information Value Date Recorded Sex Assigned at Not on file 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
--- OUTSIDE RECORDS SUMMARY | 2025-04-10 06:35 | XMS_ITS | Encounter Summary ---
Author Organization [facility] Address [address] [place] [address] Care Team Providers Care Retail Interior Designer Name Role Phone Srinivasa Anderson MD Primary Care Provider [phone] Encounter Details Date Type Department Care Team (Latest Contact Info) Description 02/08/[address] 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
--- OUTSIDE RECORDS SUMMARY | 2025-04-10 06:35 | XMS_ITS | Encounter Summary ---
Author Organization [facility] Address [address] [place] [address] Care Team Providers Care Test Tech Name Role Phone Srinivasa Anderson MD Primary Care Provider [phone] Encounter Details Date Type Department Care Team (Latest Contact Info) Description 11/06/2002 Outpatient [facility] Int [facility] [place] [place] [address] Mark Lux MD [address] [place] [address] HYPERTENSION NOS (Primary Dx); Pure hypercholesterolem; OTHER MALAISE AND FATIGUE; VACCINE FOR STREP PNEUMONIAE Social History Tobacco Use Types Packs/Day Years Used Date Smoking Tobacco: Never Assessed Sex and Gender Information Value Date Recorded Sex Assigned at Not on file 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
--- OUTSIDE RECORDS SUMMARY | 2025-04-10 06:35 | XMS_ITS | Encounter Summary ---
Author Organization [facility] Address [address] [facility] [place] [address] Care Team Providers Care Tent Worker Name Role Phone Srinivasa Anderson MD Primary Care Provider [phone] Encounter Details Date Type Department Care Team (Latest Contact Info) Description 11/10/2003 Outpatient Historical [facility] Imaging Services-Nilay Robles [place] [address] [place] [address] Mark Lux MD [address] [place] [address] HYPERTENSION NOS (Primary Dx) Social History Tobacco Use Types Packs/Day Years Used Date Smoking Tobacco: Never Assessed Sex and Gender Information Value Date Recorded Sex Assigned at Not on file Legal Sex Male 3: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
--- OUTSIDE RECORDS SUMMARY | 2025-04-10 06:35 | XMS_ITS | Encounter Summary ---
Author Organization [facility] Address [address] [place] [address] Care Team Providers Care Edge Sander Name Role Phone Srinivasa Anderson MD Primary Care Provider Encounter Details Date Type Department Care Team (Latest Contact Info) Description 02/08/2004 Outpatient Historical [facility] Int [facility]-[address] [place] [address] Mark Lux MD [address] [place] [address] HEMATURIA (Primary Dx); LUMBAGO; Vaccine for influenza Social History Tobacco Use Types Packs/Day Years Used Date Smoking Tobacco: Never Assessed Sex and Gender Information Value Date Recorded Sex Assigned at Not on file 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
--- OUTSIDE RECORDS SUMMARY | 2025-04-10 06:35 | XMS_ITS | Encounter Summary ---
Author Organization [facility] Address [address] [place] [address] Care Team Providers Care Maintenance Scheduler Name Role Phone Srinivasa Anderson MD Primary Care Provider [phone] Encounter Details Date Type Department Care Team (Latest Contact Info) Description 02/15/2004 Outpatient Historical [facility] Imaging Services-Nilay Robles [place] [address] [place] [address] Mark Lux MD [address] [place] [address] HEMATURIA (Primary Dx) Social History Tobacco Use Types Packs/Day Years Used Date Smoking Tobacco: Never Assessed Sex and Gender Information Value Date Recorded Sex Assigned at Not on file 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
--- OUTSIDE RECORDS SUMMARY | 2025-04-10 06:35 | XMS_ITS ---
Author Organization [facility] Address [address] [place] [address] Phone Care Team Providers Care Race Starter Name Role Phone Srinivasa Anderson MD Primary Care Provider [phone] Active Problems Problem Noted Date Diagnosed Date [...]
--- OUTSIDE RECORDS SUMMARY | 2025-04-10 06:35 | XMS_ITS | Encounter Summary ---
Author Organization [facility] Address [address] [place] [address] Care Team Providers Care Hide Cooking Operator Name Role Phone Srinivasa Anderson MD Primary Care Provider Encounter Details Date Type Department Care Team (Latest Contact Info) Description 11/30/2003 Outpatient Historical [facility] Dermatology- [facility] [place] [address] [place] [address] Zoltan Mahoney MD NO ADDRESS ON FILE ACTINIC KERATOSIS (Primary Dx); Inflamed seborr keratos; SEBORRHEIC KERATOSIS NOS Social History Tobacco Use Types Packs/Day Years Used Date Smoking Tobacco: Never Assessed Sex and Gender Information Value Date Recorded Sex Assigned at Not on file 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
--- OUTSIDE RECORDS SUMMARY | 2025-04-10 06:35 | XMS_ITS | Encounter Summary ---
Author Organization [facility] Address [address] [facility] [place] [address] Care Team Providers Care Production Control Supervisor Name Role Phone Srinivasa Anderson MD Primary Care Provider [phone] Encounter Details Date Type Department Care Team (Latest Contact Info) Description 12/27/2004 Outpatient Historical [facility] [place]-[address] [place] [address] Srinivasa Anderson MD [address] [place] [address] TESTICULAR HYPOFUNC NEC (Primary Dx) Social History Tobacco Use Types Packs/Day Years Used Date Smoking Tobacco: Never Assessed Sex and Gender Information Value Date Recorded Sex Assigned at Not on file 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
--- OUTSIDE RECORDS SUMMARY | 2025-04-10 06:35 | XMS_ITS | Encounter Summary ---
Author Organization [facility] Address [address] [place] [facility] [place] [address] Care Team Providers Care Digital Coordinator Name Role Phone Srinivasa nAderson MD Primary Care Provider [phone] Encounter Details Date Type Department Care Team (Latest Contact Info) Description 10/03/2004 Outpatient [facility] [place] [place] [address] Srinivasa Anderson MD [address] [place] [address] HYPERTENSION NOS (Primary Dx); Plantar fibromatosis; OTHER MALAISE AND FATIGUE; Toxic effect venom Social History Tobacco Use Types Packs/Day Years Used Date Smoking Tobacco: Never Assessed Sex and Gender Information Value Date Recorded Sex Assigned at Not on file 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
--- OUTSIDE RECORDS SUMMARY | 2025-04-10 06:35 | XMS_ITS | Encounter Summary ---
Author Organization [facility] Address [address] [place] [address] Care Team Providers Care Link Trainer Operator Name Role Phone Srinivasa Anderson MD Primary Care Provider [phone] Encounter Details Date Type Department Care Team (Latest Contact Info) Description 10/26/2004 Outpatient Historical [facility] [address] 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
--- OUTSIDE RECORDS SUMMARY | 2025-04-10 06:35 | XMS_ITS | Encounter Summary ---
Author Organization [facility] Address [address] [facility] [place] [place] [address] Care Team Providers Care Medical Underwriter Name Role Phone Srinivasa Anderson MD Primary Care Provider [phone] Encounter Details Date Type Department Care Team (Latest Contact Info) Description 06/28/2004 Outpatient Historical [facility] [place] [address] Srinivasa Anderson MD [address] [place] [address] PULM EMBOLISM/INFARCT IATROGENIC (CMS/HCC) (Primary Dx); PERNICIOUS ANEMIA; Benign amado lg bowel; NOCTURIA Social History Tobacco Use Types Packs/Day Years Used Date Smoking Tobacco: Never Assessed Sex and Gender Information Value Date Recorded Sex Assigned at Not on file 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
--- OUTSIDE RECORDS SUMMARY | 2025-04-10 06:35 | XMS_ITS | Encounter Summary ---
Author Organization [facility] Address [address] [place] [facility] [place] [address] Care Team Providers Care Engine Dynamometer Tester Name Role Phone Srinivasa Anderson MD Primary Care Provider [phone] Encounter Details Date Type Department Care Team (Latest Contact Info) Description 04/25/2004 Outpatient Historical [facility] [place]-[address] [place] [address] Srinivasa Anderson MD [address] [place] [address] PULM EMBOLISM/INFARCT NOS (CMS/HCC) (Primary Dx); HYPERTENSION NOS Social History Tobacco Use Types Packs/Day Years Used Date Smoking Tobacco: Never Assessed Sex and Gender Information Value Date Recorded Sex Assigned at Not on file 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
--- OUTSIDE RECORDS SUMMARY | 2025-04-10 06:35 | XMS_ITS | Encounter Summary ---
Author Organization [facility] Address [address] [facility] [place] [address] Care Team Providers Care Manager Name Role Phone Srinivasa Anderson MD Primary Care Provider [phone] Encounter Details Date Type Department Care Team (Latest Contact Info) Description 07/18/2004 Outpatient [facility] Gastroenterology- [place] [address] [place] [address] Ar Stanton MD NO ADDRESS ON FILE FOLLOW-UP EXAM NOS (Primary Dx); PERS HX COLONIC POLYPS; Diverticulosis of colon; INT HEMORRHOID W/O COMPL Social History Tobacco Use Types Packs/Day Years Used Date Smoking Tobacco: Never Assessed Sex and Gender Information Value Date Recorded Sex Assigned at Not on file 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 Gender Identity Not on file Sexual Orientation Not on file documented as of this encounter Plan of Treatment Not on file documented as of this encounter Visit Diagnoses Diagnosis Unspecified follow-up examination- Primary Personal history of colonic polyps Diverticulosis of colon Diverticulosis of colon (without mention of hemorrhage) Internal hemorrhoids without mention of complication documented in this encounter Care Teams Manager Relationship Specialty Start Date End Date Srinivasa Anderson MD [address] [place] [address] PCP - General 07/18/04 documented as of this encounter
--- OUTSIDE RECORDS SUMMARY | 2025-04-10 06:35 | XMS_ITS | Encounter Summary ---
Author Organization [facility] Address [address] [facility] [place] [address] Care Team Providers Care Mmd Unit Teacher Name Role Phone Srinivasa Anderson MD Primary Care Provider [phone] Encounter Details Date Type Department Care Team (Latest Contact Info) Description 11/24/2004 Outpatient Historical [facility] [place]-[address] [place] [address] Srinivasa Anderson MD [address] [address] TESTICULAR HYPOFUNC NEC (Primary Dx) Social History Tobacco Use Types Packs/Day Years Used Date Smoking Tobacco: Never Assessed Sex and Gender Information Value Date Recorded Sex Assigned at Not on file 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
--- OUTSIDE RECORDS SUMMARY | 2025-04-10 06:35 | XMS_ITS | Encounter Summary ---
Author Organization [facility] Address [address] [place] [address] Care Team Providers Care Railroad Firer/Fireman Name Role Phone Srinivasa Anderson MD Primary Care Provider [phone] Encounter Details Date Type Department Care Team (Latest Contact Info) Description 11/06/2002 Outpatient Historical [facility] Imaging Services-Nilay Robles [place] [address] [place] [address] Mark Lux MD [address] [place] [address] HYPERTENSION NOS (Primary Dx) Social History Tobacco Use Types Packs/Day Years Used Date Smoking Tobacco: Never Assessed Sex and Gender Information Value Date Recorded Sex Assigned at Not on file 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
--- OUTSIDE RECORDS SUMMARY | 2025-04-10 06:35 | XMS_ITS | Encounter Summary ---
Author Organization [facility] Address [address] [facility] [place] [address] Care Team Providers Care Configuration Engineer Name Role Phone Srinivasa Anderson MD Primary Care Provider Encounter Details Date Type Department Care Team (Latest Contact Info) Description 04/05/2003 Outpatient Historical [facility] Imaging Services-Nilay Robles [place] [address] [place] [address] Mark Lux MD [address] [place] [address] ABDOMINAL PAIN EPIGASTRIC (Primary Dx) Social History Tobacco Use Types Packs/Day Years Used Date Smoking Tobacco: Never Assessed Sex and Gender Information Value Date Recorded Sex Assigned at Not on file 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
--- OUTSIDE RECORDS SUMMARY | 2025-04-10 06:35 | XMS_ITS | Encounter Summary ---
Author Organization [facility] Address [address] [place] [address] Care Team Providers Care Rabbet Operator Name Role Phone Srinivasa Anderson MD Primary Care Provider [phone] Encounter Details Date Type Department Care Team (Late st Contact Info) Description 03/30/2004 Outpatient Historical [facility] Urology- [place] 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
--- OUTSIDE RECORDS SUMMARY | 2025-04-10 06:36 | XMS_ITS | Encounter Summary ---
Author Organization [facility] Address [address] [place] [address] Care Team Providers Care Grey Roll Worker Name Role Phone Srinivasa Anderson MD Primary Care Provider [phone] Encounter Details Date Type Department Care Team (Latest Contact Info) Description 08/19/2001 Outpatient Historical [facility] Dermatology- [facility] [place] [address] [place] [phone] Zoltan Mahoney MD NO ADDRESS ON FILE [...] keratosis documented in this encounter Care Teams Grey Roll Worker Relationship Specialty Start Date End Date Srinivasa Anderson MD [address] [place] [phone] PCP - General 07/18/04 documented as of this encounter
--- OUTSIDE RECORDS SUMMARY | 2025-04-10 06:36 | XMS_ITS | Encounter Summary ---
Author Organization [facility] Address [address] [facility] [address] Care Team Providers Care Refrigeration Person Name Role Phone Srinivasa Anderson MD Primary Care Provider [phone] Encounter Details Date Type Department Care Team (Latest Contact Info) Description 08/04/2002 Outpatient Historical [facility] Imaging Services-Nilay Robles [place] [address] [place] [address] Mark Lux MD [address] [place] [address] JOINT PAIN-PELVIS (Primary Dx) Social History Tobacco Use Types Packs/Day Years Used Date Smoking Tobacco: Never Assessed Sex and Gender Information Value Date Recorded Sex Assigned at Not on file 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
--- OUTSIDE RECORDS SUMMARY | 2025-04-10 06:36 | XMS_ITS | Encounter Summary ---
Author Organization [facility] Address [address] [facility] [place] [address] Care Team Providers Care Airplane Pilot Commercial Name Role Phone Srinivasa Anderson MD Primary Care Provider [phone] Encounter Details Date Type Department Care Team (Late st Contact Info) Description 10/21/[address] 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
--- OUTSIDE RECORDS SUMMARY | 2025-04-10 06:36 | XMS_ITS | Encounter Summary ---
Author Organization [facility] Address [address] [facility] [place] [address] Care Team Providers Care Digital Strategy Specialist Name Role Phone Srinivasa Anderson MD Primary Care Provider [phone] Encounter Details Date Type Department Care Team (Latest Contact Info) Description 03/09/2005 Outpatient Historical [facility] [place] [place] [address] Srinivasa Anderson MD [address] [place] [address] TESTICULAR HYPOFUNC NEC (Primary Dx) Social History Tobacco Use Types Packs/Day Years Used Date Smoking Tobacco: Never Assessed Sex and Gender Information Value Date Recorded Sex Assigned at Not on file 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
--- OUTSIDE RECORDS SUMMARY | 2025-04-10 06:36 | XMS_ITS | Encounter Summary ---
Author Organization [facility] Address [address] [facility] [place] [address] Care Team Providers Care Commercial Fishing Vessel Operator Name Role Phone Srinivasa Anderson MD Primary Care Provider [phone] Encounter Details Date Type Department Care Team (Late st Contact Info) Description 10/21/2000 Outpatient Historical [facility] Yfn Hahn MD [address] [place], [place] [id number] Unspecified essential hypertension (Primary Dx); Other vitamin B12 deficiency anemia; Routine medical exam; Special screening for malignant neoplasm of prostate; Femoral vein phlebitis (CMS/HCC) Social History Tobacco Use Types Packs/Day Years Used Date Smoking Tobacco: Never Assessed Sex and Gender Information Value Date Recorded Sex Assigned at Not on file 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
--- OUTSIDE RECORDS SUMMARY | 2025-04-10 06:36 | XMS_ITS | Encounter Summary ---
Author Organization [facility] Address [address] [facility] [place] [address] Care Team Providers Care Transfer Pumper Name Role Phone Srinivasa Anderson MD Primary Care Provider [phone] Encounter Details Date Type Department Care Team (Latest Contact Info) Description 11/10/[address] 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
--- OUTSIDE RECORDS SUMMARY | 2025-04-10 06:36 | XMS_ITS | Encounter Summary ---
Author Organization [facility] Address [address] [facility] [place] [address] Care Team Providers Care Pony Ride Operator Name Role Phone Srinivasa Anderson MD Primary Care Provider [phone] Encounter Details Date Type Department Care Team (Late st Contact Info) Description 12/30/2000 Outpatient Historical [facility] Yfn Hahn MD [address] [place], [place] [id number] Other pulmonary embolism and infarction (CMS/HCC) (Primary Dx) Social History Tobacco Use Types Packs/Day Years Used Date Smoking Tobacco: Never Assessed Sex and Gender Information Value Date Recorded Sex Assigned at Not on file 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
--- OUTSIDE RECORDS SUMMARY | 2025-04-10 06:36 | XMS_ITS | Encounter Summary ---
Author Organization [facility] Address [address] [facility] [place] [address] Care Team Providers Care Technical Writer And Editor Name Role Phone Srinivasa Anderson MD Primary Care Provider [phone] Encounter Details Date Type Department Care Team (Latest Contact Info) Description 09/08/2002 Outpatient Historical [facility] Robbi Post MD [address] 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
--- OUTSIDE RECORDS SUMMARY | 2025-04-10 06:36 | XMS_ITS | Encounter Summary ---
Author Organization [facility] Address [address] [facility] [place] [address] Care Team Providers Care Patient Care Assistant Name Role Phone Srinivasa Anderson MD Primary Care Provider [phone] Encounter Details Date Type Department Care Team (Latest Contact Info) Description 12/02/2001 Outpatient Historical [facility] Int [facility] [place] [place] [address] Mark Lux MD [address] [place] [address] Pure hypercholesterolem (Primary Dx); HYPERTENSION NOS Social History Tobacco Use Types Packs/Day Years Used Date Smoking Tobacco: Never Assessed Sex and Gender Information Value Date Recorded Sex Assigned at Not on file 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
--- OUTSIDE RECORDS SUMMARY | 2025-04-10 06:36 | XMS_ITS | Encounter Summary ---
Author Organization [facility] Address [address] [facility] [place] [address] Care Team Providers Care Metal Die Finisher Name Role Phone Srinivasa Anderson MD Primary Care Provider [phone] Encounter Details Date Type Department Care Team (Latest Contact Info) Description 09/11/2002 Outpatient Historical [facility] Dermatology- [facility] [place] [address] [place] [address] Zoltan Mahoney MD NO ADDRESS ON FILE ACTINIC KERATOSIS (Primary Dx); Malig amado scalp/skin neck; SEBORRHEIC KERATOSIS NOS Social History Tobacco Use Types Packs/Day Years Used Date Smoking Tobacco: Never Assessed Sex and Gender Information Value Date Recorded Sex Assigned at Not on file 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
--- OUTSIDE RECORDS SUMMARY | 2025-04-10 06:36 | XMS_ITS | Encounter Summary ---
Author Organization [facility] Address [address] [facility] [place] [address] Care Team Providers Care Ui Architect Name Role Phone Srinivasa Anderson MD Primary Care Provider Encounter Details Date Type Department Care Team (Late st Contact Info) Description 11/27/2000 Outpatient Historical [facility] Yfn Hahn MD [address] [place], [place] [id number] Other pulmonary embolism and infarction (CMS/HCC) (Primary Dx) Social History Tobacco Use Types Packs/Day Years Used Date Smoking Tobacco: Never Assessed Sex and Gender Information Value Date Recorded Sex Assigned at Not on file 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
--- OUTSIDE RECORDS SUMMARY | 2025-04-10 06:36 | XMS_ITS | Encounter Summary ---
Author Organization [facility] Address [address] [facility] [place] [address] Care Team Providers Care Breakdown Person Name Role Phone Srinivasa Anderson MD Primary Care Provider Encounter Details Date Type Department Care Team (Late st Contact Info) Description 02/17/2001 Outpatient Historical [facility] Imaging Services-[place] [address] [place] [address] Yfn Hahn MD [address] [place] [address] COUGH (Primary Dx); RESPIRATORY ABNORM NEC Social History Tobacco Use Types Packs/Day Years Used Date Smoking Tobacco: Never Assessed Sex and Gender Information Value Date Recorded Sex Assigned at Not on file 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
--- OUTSIDE RECORDS SUMMARY | 2025-04-10 06:36 | XMS_ITS | Encounter Summary ---
Author Organization [facility] Address [address] [facility] [place] [address] Care Team Providers Care Leather Coverer Name Role Phone Srinivasa Anderson MD Primary Care Provider Encounter Details Date Type Department Care Team (Latest Contact Info) Description 05/30/1998 Outpatient Historical [facility]- [facility] [place] [address] [place] [address] Zoltan Mahoney MD NO ADDRESS ON FILE Other seborrheic keratosis (Primary Dx) Social History Tobacco Use Types Packs/Day Years Used Date Smoking Tobacco: Never Assessed Sex and Gender Information Value Date Recorded Sex Assigned at Not on file 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
--- OUTSIDE RECORDS SUMMARY | 2025-04-10 06:36 | XMS_ITS | Encounter Summary ---
Author Organization [facility] Address [address] [facility] [place] [address] Care Team Providers Care Rental Clerk Name Role Phone Srinivasa Anderson MD Primary Care Provider [phone] Encounter Details Date Type Department Care Team (Latest Contact Info) Description 05/08/2001 Outpatient Historical [facility] [place] [place] [address] Mark Lux MD [address] [place] [address] HYPERTENSION NOS (Primary Dx); AFTERCARE DETENTION ANTICOAG USE; PULM EMBOLISM/INFARCT IATROGENIC (CMS/HCC) Social History Tobacco Use Types Packs/Day Years Used Date Smoking Tobacco: Never Assessed Sex and Gender Information Value Date Recorded Sex Assigned at Not on file Legal Sex Male 3: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 SUPERVISOR Gender Identity Not on file Sexual Orientation Not on file documented as of this encounter Plan of Treatment Not on file documented as of this encounter Visit Diagnoses Diagnosis Unspecified essential hypertension- Primary long term care administrator (current) use of anticoagulants Long-term (current) use of anticoagulants Iatrogenic pulmonary embolism and infarction (CMS/HCC) Iatrogenic pulmonary embolism and infarction documented in this encounter Care Teams Rental Clerk Relationship Specialty Start Date End Date Srinivasa Anderson MD [address] [place] [address] PCP - General 07/18/04 documented as of this encounter
--- OUTSIDE RECORDS SUMMARY | 2025-04-10 06:36 | XMS_ITS | Encounter Summary ---
Author Organization [facility] Address [address] 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
--- OUTSIDE RECORDS SUMMARY | 2025-04-10 06:36 | XMS_ITS | Encounter Summary ---
Author Organization [facility] Address [address] [facility] [place] [address] Care Team Providers Care Clay Pigeon Setter Name Role Phone Srinivasa Anderson MD Primary Care Provider [phone] Encounter Details Date Type Department Care Team (Late st Contact Info) Description 02/17/2001 Outpatient [facility] [place] [place] [address] Yfn Hahn MD [address] [place] [address] ACUTE BRONCHITIS (Primary Dx); THROMBOPHLEBITIS LEG NOS Social History Tobacco Use Types Packs/Day Years Used Date Smoking Tobacco: Never Assessed Sex and Gender Information Value Date Recorded Sex Assigned at Not on file 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
--- OUTSIDE RECORDS SUMMARY | 2025-04-10 06:36 | XMS_ITS | Encounter Summary ---
Author Organization [facility] Address [address] [place] [address] Care Team Providers Care Special Collections Librarian Name Role Phone Srinivasa Anderson MD Primary Care Provider [phone] Encounter Details Date Type Department Care Team (Latest Contact Info) Description 03/27/2005 Outpatient Historical [facility] [address] 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
--- OUTSIDE RECORDS SUMMARY | 2025-04-10 06:36 | XMS_ITS | Encounter Summary ---
Author Organization [facility] Address [address] [facility] [address] Care Team Providers Care Transplant Worker Name Role Phone Srinivasa Anderson MD Primary Care Provider [phone] Encounter Details Date Type Department Care Team (Latest Contact Info) Description 08/04/2002 Outpatient Historical [facility] Int [facility] [place] [place] [address] Mark Lux MD [address] [place] [address] JOINT PAIN-PELVIS (Primary Dx) Social History Tobacco Use Types Packs/Day Years Used Date Smoking Tobacco: Never Assessed Sex and Gender Information Value Date Recorded Sex Assigned at Not on file 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
--- OUTSIDE RECORDS SUMMARY | 2025-04-10 06:36 | XMS_ITS | Encounter Summary ---
Author Organization [facility] Address [address] [place] [address] Care Team Providers Care Porcelain Enamel Repairer Name Role Phone Srinivasa Anderson MD Primary Care Provider [phone] Encounter Details Date Type Department Care Team (Latest Contact Info) Description 10/24/2001 Outpatient Historical [facility] Int [facility] [place] [place] [address] Mark Lux MD [address] [place] [address] HYPERTENSION NOS (Primary Dx); Pure hypercholesterolem; OSTEOARTHROS NOS-UNSPEC Social History Tobacco Use Types Packs/Day Years Used Date Smoking Tobacco: Never Assessed Sex and Gender Information Value Date Recorded Sex Assigned at Not on file 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
--- OUTSIDE RECORDS SUMMARY | 2025-04-10 06:36 | XMS_ITS | Encounter Summary ---
Author Organization [facility] Address [address] [facility] [place] [address] Care Team Providers Care Stitch Wheeler Name Role Phone Srinivasa Anderson MD Primary Care Provider [phone] Encounter Details Date Type Department Care Team (Latest Contact Info) Description 2005 Outpatient Historical [facility] [place] [place] [address] Srinivasa Anderson MD [address] [place] [address] Other Testicular Hypofunction (Primary Dx) Social History Tobacco Use Types Packs/Day Years Used Date Smoking Tobacco: Never Assessed Sex and Gender Information Value Date Recorded Sex Assigned at Not on file 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
--- OUTSIDE RECORDS SUMMARY | 2025-04-10 06:36 | XMS_ITS | Encounter Summary ---
Author Organization [facility] Address [address] [place] [address] Care Team Providers Care Court Deputy Name Role Phone Srinivasa Anderson MD Primary Care Provider [phone] Encounter Details Date Type Department Care Team (Latest Contact Info) Description 02/14/2005 Outpatient Historical [facility] [address] [place] [address] Shelia Alberto, RN NO ADDRESS ON FILE SCREENING-CARDIOVAS C NEC (Primary Dx) Social History Tobacco Use Types Packs/Day Years Used Date Smoking Tobacco: Never Assessed Sex and Gender Information Value Date Recorded Sex Assigned at Not on file 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
--- OUTSIDE RECORDS SUMMARY | 2025-04-10 06:36 | XMS_ITS | Encounter Summary ---
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 (Primary Dx); Other seborrheic keratosis Social History Tobacco Use Types Packs/Day Years Used Date Smoking Tobacco: Never Assessed Sex and Gender Information Value Date Recorded Sex Assigned at Not on file Legal Sex Male 3:08 AM DATA SME Gender Identity Not on file Sexual Orientation Not on file documented as of this encounter Plan of Treatment Not on file documented as of this encounter Visit Diagnoses Diagnosis 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- Primary Other seborrheic keratosis documented in this encounter Care Teams Heel Gouger Relationship Specialty Start Date End Date Srinivasa Anderson MD [address] [place] [address] PCP - General 07/18/04 documented as of this encounter
--- OUTSIDE RECORDS SUMMARY | 2025-04-10 06:36 | XMS_ITS | Encounter Summary ---
Author Organization [facility] Address [address] [address] Care Team Providers Care Sewing Techniques Demonstrator Name Role Phone Srinivasa Anderson MD Primary Care Provider [phone] Encounter Details Date Type Department Care Team (Latest Contact Info) Description 08/30/2003 Outpatient Historical 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
--- OUTSIDE RECORDS SUMMARY | 2025-04-10 06:36 | XMS_ITS | Encounter Summary ---
Author Organization [facility] Address [address] [facility] [place] [address] Care Team Providers Care Falsework Builder Name Role Phone Srinivasa Anderson MD Primary Care Provider [phone] Encounter Details Date Type Department Care Team (Latest Contact Info) Description 02/14/2005 Outpatient Historical [facility] [place] [place] [address] Srinivasa Anderson MD [address] [place] [address] TESTICULAR HYPOFUNC NEC (Primary Dx); Vaccine for influenza Social History Tobacco Use Types Packs/Day Years Used Date Smoking Tobacco: Never Assessed Sex and Gender Information Value Date Recorded Sex Assigned at Not on file 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
--- OUTSIDE RECORDS SUMMARY | 2025-04-10 06:36 | XMS_ITS | Encounter Summary ---
Author Organization [facility] Address [address] [facility] [place] [address] Care Team Providers Care Medical Services Coordinator Name Role Phone Srinivasa Anderson MD Primary Care Provider [phone] Encounter Details Date Type Department Care Team (Latest Contact Info) Description 03/27/2005 Outpatient Historical [facility] Dermatology- [facility] [place] [address] [place] [address] Zoltan Mahoney MD NO ADDRESS ON FILE ACTINIC KERATOSIS (Primary Dx); Inflamed seborr keratos; SEBORRHEIC KERATOSIS NOS; Malig amado skin arm Social History Tobacco Use Types Packs/Day Years Used Date Smoking Tobacco: Never Assessed Sex and Gender Information Value Date Recorded Sex Assigned at Not on file Legal Sex Male 3: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 [employer] MEMBER Gender Identity Not on file Sexual Orientation Not on file documented as of this encounter Plan of Treatment Not on file documented as of this encounter Visit Diagnoses Diagnosis Actinic keratosis- Primary Inflamed seborr keratos Inflamed seborrheic keratosis Other seborrheic keratosis Malig amado skin arm 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
--- OUTSIDE RECORDS SUMMARY | 2025-04-10 06:36 | XMS_ITS | Encounter Summary ---
Author Organization [facility] Address [address] [facility] [place] [address] Care Team Providers Care Disease Case Manager Rn Name Role Phone Srinivasa Anderson MD Primary Care Provider [phone] Encounter Details Date Type Department Care Team (Latest Contact Info) Description 06/03/1997 Outpatient Historical [facility]- [facility] 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
--- OUTSIDE RECORDS SUMMARY | 2025-04-10 06:36 | XMS_ITS | Encounter Summary ---
Author Organization [facility] Address [address] [facility] [place] [address] Care Team Providers Care Ambulance Driver Paramedic Name Role Phone Srinivasa Anderson MD Primary Care Provider [phone] Encounter Details Date Type Department Care Team (Late st Contact Info) Description 11/05/2000 Outpatient Historical [facility] Int [facility] [place] [place] [address] Yfn Hahn MD [address] [place] [address] Allergic rhinitis, cause unspecified (Primary Dx); Unspecified essential hypertension Social History Tobacco Use Types Packs/Day Years Used Date Smoking Tobacco: Never Assessed Sex and Gender Information Value Date Recorded Sex Assigned at Not on file 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
--- OUTSIDE RECORDS SUMMARY | 2025-04-10 06:36 | XMS_ITS | Encounter Summary ---
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 Social History Tobacco Use Types Packs/Day Years Used Date Smoking Tobacco: Never Assessed Sex and Gender Information Value Date Recorded Sex Assigned at Not on file 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
--- OUTSIDE RECORDS SUMMARY | 2025-04-10 06:36 | XMS_ITS | Encounter Summary ---
Author Organization [facility] Address [address] [facility] [place] [address] Care Team Providers Care Bark Skinner Name Role Phone Srinivasa Anderson MD Primary Care Provider [phone] Encounter Details Date Type Department Care Team (Latest Contact Info) Description 05/22/2005 Outpatient Historical [facility] [place] [place] [address] Srinivasa Anderson MD [address] [place] [address] TESTICULAR HYPOFUNC NEC (Primary Dx); FOLLOW-UP EXAM NOS Social History Tobacco Use Types Packs/Day Years Used Date Smoking Tobacco: Never Assessed Sex and Gender Information Value Date Recorded Sex Assigned at Not on file 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
--- OUTSIDE RECORDS SUMMARY | 2025-04-10 06:36 | XMS_ITS | Encounter Summary ---
Author Organization [facility] Address [address] [facility] [place] [address] Care Team Providers Care Dethistler Operator Name Role Phone Srinivasa Anderson MD Primary Care Provider [phone] Encounter Details Date Type Department Care Team (Latest Contact Info) Description 04/18/2005 Outpatient Historical [facility] [place] [place] [address] Srinivasa Anderson MD [address] [place] [address] TESTICULAR HYPOFUNC NEC (Primary Dx) Social History Tobacco Use Types Packs/Day Years Used Date Smoking Tobacco: Never Assessed Sex and Gender Information Value Date Recorded Sex Assigned at Not on file 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
--- OUTSIDE RECORDS SUMMARY | 2025-04-10 06:36 | XMS_ITS | Encounter Summary ---
Author Organization [facility] Address [address] [place] [address] Care Team Providers Care Radio Tester Name Role Phone Srinivasa Anderson MD Primary Care Provider [phone] Reason for Visit * Reason Onset Date Comments Question 09/13/2022 Encounter Details Date Type Department Care Team (Late st Contact Info) Description 09/13/[address] [facility] [address] [facility] [address] [place] [address] Jaden Vital MD NO ADDRESS ON FILE Question Social History Tobacco Use Types Packs/Day Years Used Date Smoking Tobacco: Never Smokeless Tobacco: Former Alcohol Use Standard Drinks/Week Comments Yes 1 (1 standard drink = 0.6 oz pur e alcohol) Sex and Gender Information Value Date Recorded Sex Assigned at Not on file Legal Sex Male 6:28 AM FORENSIC PSYCHOLOGIST Gender Identity Not on file Sexual Orientation [...] Provider: Zahraa Person calling: Sultana Phone #: [phone] Relationship to patient: , PHI not signed [...] Description 06/29/2025 8:00 AM CDT Procedure visit [facility] [address] [place] [address] Mariela Stone MD [address] [place] [phone] 07/08/2025 1:00 PM CDT Office Visit [facility] [address] [place] [address] Kodak Samuel MD [address] [place] [address] 03/28/2026 11:00 AM FORENSIC PSYCHOLOGIST Office Visit [facility] [address] [place] [address] Dominic Haskins CRNP [address] [place] [address] Mariela Stone MD [address] [place] [address] Mayra Mohr NP [address] [facility] [address] [place] [address] documented as of this encounter Visit Diagnoses Not on filedocumented in this encounter Care Teams Radio Tester Relationship Specialty Start Date End Date Srinivasa Anderson MD [address] [facility] [address] [place] [address] PCP - General Family Practice 05/18/24 documented as of this encounter
--- OUTSIDE RECORDS SUMMARY | 2025-04-10 06:36 | XMS_ITS | Encounter Summary ---
Author Organization [facility] Address [address] [place] [address] Care Team Providers Care Guide Delegate Name Role Phone Srinivasa Anderson MD Primary Care Provider [phone] Encounter Details Date Type Department Care Team (Latest Contact Info) Description 10/14/2001 Outpatient Historical [facility] Imaging Services-Nilay Robles Vilas [address] [place] [address] Mark Lux MD [address] [place] [address] HYPERTENSION NOS (Primary Dx) Social History Tobacco Use Types Packs/Day Years Used Date Smoking Tobacco: Never Assessed Sex and Gender Information Value Date Recorded Sex Assigned at Not on file 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
--- OUTSIDE RECORDS SUMMARY | 2025-04-10 06:36 | XMS_ITS | Encounter Summary ---
Author Organization [facility] Address [address] [place] [place] [address] Care Team Providers Care Blower Room Attendant Name Role Phone Srinivasa Anderson MD Primary Care Provider [phone] Encounter Details Date Type Department Care Team (Latest Contact Info) Description 06/29/1999 Outpatient Historical [facility] Dermatology- [facility] [address] [place] [id number] Zoltan Mahoney MD NO ADDRESS ON FILE Actinic keratosis (Primary Dx); Malig amado skin arm; Inflamed seborr keratos Social History Tobacco Use Types Packs/Day Years Used Date Smoking Tobacco: Never Assessed Sex and Gender Information Value Date Recorded Sex Assigned at Not on file 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
--- OUTSIDE RECORDS SUMMARY | 2025-04-10 06:36 | XMS_ITS | Encounter Summary ---
Author Organization [facility] Address [address] [place] [address] Care Team Providers Care Magnetic Resonance Imaging Coordinator Name Role Phone Srinivasa Anderson MD Primary Care Provider [phone] Encounter Details Date Type Department Care Team (Latest Contact Info) Description 09/01/2002 Outpatient Historical [facility] Imaging Services [address] 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
--- OUTSIDE RECORDS SUMMARY | 2025-04-10 06:36 | XMS_ITS | Encounter Summary ---
Author Organization [facility] Address [address] 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
--- OUTSIDE RECORDS SUMMARY | 2025-04-10 06:36 | XMS_ITS | Encounter Summary ---
Author Organization [facility] Address [address] [place] [address] Care Team Providers Care Payroll And Benefits Coordinator Name Role Phone Srinivasa Anderson MD Primary Care Provider [phone] Encounter Details Date Type Department Care Team (Latest Contact Info) Description 10/01/1997 Outpatient Historical [facility] Dermatology- [facility] [place] [address] [place] [phone] Zoltan Mahoney MD NO ADDRESS ON FILE Actinic keratosis (Primary Dx); 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 Social History Tobacco Use Types Packs/Day Years Used Date Smoking Tobacco: Never Assessed Sex and Gender Information Value Date Recorded Sex Assigned at Not on file 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
--- OUTSIDE RECORDS SUMMARY | 2025-04-10 06:36 | XMS_ITS | Encounter Summary ---
Author Organization [facility] Address [address] [place] [address] Care Team Providers Care Front End Loader Operator Name Role Phone Srinivasa Anderson MD Primary Care Provider [phone] Encounter Details Date Type Department Care Team (Latest Contact Info) Description 02/18/2001 Outpatient Historical [facility]- [facility] [address] [place] [address] Zoltan Mahoney MD NO ADDRESS ON FILE PERS HX SKIN MALIGNANCY NEC (Primary Dx); SEBORRHEIC KERATOSIS NOS; ACTINIC KERATOSIS Social History Tobacco Use Types Packs/Day Years Used Date Smoking Tobacco: Never Assessed Sex and Gender Information Value Date Recorded Sex Assigned at Not on file 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
--- OUTSIDE RECORDS SUMMARY | 2025-04-10 06:36 | XMS_ITS | Encounter Summary ---
Author Organization [facility] Address [address] [place] [address] Care Team Providers Care Meat Boner And Slicer Name Role Phone Srinivasa Anderson MD Primary Care Provider [phone] Encounter Details Date Type Department Care Team (Latest Contact Info) Description 06/13/2005 Outpatient Historical [facility] [address] [place] [address] Srinivasa Anderson MD [address] [place] [address] TESTICULAR HYPOFUNC NEC (Primary Dx) Social History Tobacco Use Types Packs/Day Years Used Date Smoking Tobacco: Never Assessed Sex and Gender Information Value Date Recorded Sex Assigned at Not on file 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
--- NOTE | 2025-04-10 08:17 | PC.NURSE ---
Patient rash this AM looked worse with petechie in legs this AM. Dr. Zelaya notified and clarified if heparin subq should be given. Per Dr. Zelaya okay to hold heparin.
--- NOTE | 2025-04-10 11:01 | PC.CHAP ---
Pastoral Care Encounter/Spiritual Assessment Type of Contact [] Declined firmware engineer visit [] Patient/Family/Request visit [] Outpatient visit [] Follow-up visit [] Physician referral [] Code/Alert [x] Routine visit [] Staff referral [] Actively dying [] Patient sleeping [] Family support [] [] Out of room [] Palliative care [] [] Receiving care in room [] Pre-surgical visit [] Trauma [] Long length of stay [] ICU visit [] Other: Relational/Emotional Strength [x] Patient feels connected with others/family/visitors/staff [] Distress [] Loneliness/isolation [] Abandonment Spirituality of Patient [x] Person of Sultana [x] Attends Voodoo of their Sultana [x] Believes in Prayer [x] Reads Bible or Scientologist materials [] There are Spiritual issues to be addressed Senior Instructional Designer Interventions [] Prayer [x] Active listening [x] Non-anxious presence [] Spiritual/emotional support [] Crisis/trauma care [] Spiritual counseling [] Bereavement support [] Provided bereavement packet [] Provided Bible/devotional materials [] Provided toy/stuffed animal, coloring book to patient or family member [] Provided Communion [] Anointing/[place] [] Salvation [] Completed spiritual assessment [] Other: Impact on Illness or Injury [] Angry [] Fearful [] Anxious [] Often cries [] Exhaustion [] Unable to work [] Unable to attend religion [] Unable to walk/stand [] Unable to read [] Unable to drive [] Unable to eat/drink [] Unable to sleep [] Unable to be with family [] Patient intubated [x] Other: Paster just left Summary Paster just left Time spent with patient 10 Min
[2025-04-10] MEDS: albumin 25 G/100 ML BAG 60 G IV (17:37)
[2025-04-10] MEDS: heparin 5,000 unit/mL INJ 1 mL 5000 UNIT SUBCUT (17:37)
--- NOTE | 2025-04-10 18:30 | PC.NURSE ---
pt had 19 beat run v-tach.spontaneously converted.asymptomatic.dr escudero notified.he ordered 40 meq of potassium chloride and magnesium iv.
--- NOTE | 2025-04-10 19:07 | USR_ITS ---
PROCEDURE INFORMATION: Exam: US Duplex Left Lower Extremity Veins, Limited Exam date and time: 04/10/2025 7:44 AM Age: 89 years old Clinical indication: Pain; Leg, lower; Left; Additional info: Swollen TECHNIQUE: Imaging protocol: Real-time duplex ultrasound of the left extremity with 2-D garcia scale, color Doppler flow and spectral waveform analysis including responses to compression and other maneuvers (when performed) with image documentation. Limited exam focused on the left lower extremity veins. COMPARISON: CT abdomen pelvis w con* [id number] 12/17/2024 2:05 PM FINDINGS: Left deep veins: Unremarkable. The common femoral, femoral, proximal profunda femoral and popliteal veins are patent without thrombus. Possible small nonspecific area of calcification along the popliteal vein, does not appear to represent any significant occlusive thrombotic material within the popliteal vein. Normal Doppler waveforms. Normal compressibility and/or augmentation response. Superficial veins: Greater saphenous vein at the saphenofemoral junction is patent without thrombus. Soft tissues: Unremarkable. US/CV venous duplex [facility] [id number] IMPRESSION: No evidence of deep vein thrombosis.
--- NOTE | 2025-04-10 22:42 | P.PN_ITS ---
Subjective 2 Subjective: He denies current shortness of breath while lying back. No chest pain or pressure. Some leg edema. Normally ambulates with a walker when he is outside but does not use it at home. Has been dealing with his rash for months. Vitals/I&O/Wt Last Vital Signs Temp 96.9 F L 04/10/25 20:27 Pulse 60 04/10/25 20:27 Resp 27 H 04/10/25 20:27 BP 111/60 04/10/25 20:27 Pulse Ox 94 04/10/25 20:27 O2 Del Method Room Air 04/10/25 04:00 04/10/25 04/10/25 04/10/25 06:59 14:59 22:59 Intake Total 240 / 580 1440 / 1440 580 / 2020 Output Total 100 / 226 325 / 325 300 / 625 Balance 140 / 354 1115 / 1115 280 / 1395 Weight last 48 hrs Weight 89.04 kg Weight 90.718 kg Weight 90.718 kg Physical Exam 2 Const: COMMON NORMALS: patient oriented x3 and alert GENERAL APPEARANCE: c ooperative ORIENTATION/CONSCIOUSNESS: Yes awake HENMT: COMMON NORMALS: oropharynx normal Neck/C-Spine: COMMON NORMALS: no JVD Resp: COMMON NORMALS: normal respiratory effort and clear to auscultation bilaterally AUSCULTATION: clear to auscultation bilaterally Cardio: COMMON NORMALS: no JVD, regular rhythm, S1 normal heart sound present, S2 normal heart sound present and No murmurs present (Cardio) RHYTHM: regular rhythm HEART SOUNDS: S1 normal heart sound present and S2 normal heart sound present GI: COMMON NORMALS: Normal to inspection, nondistended, normoactive bowel sounds present, Soft to palpation and non-tender PALPATION: Yes Soft to palpation Extremity: COMMON NORMALS: no joint enlargement OTHER: 2+ ankle edema Neuro: COMMON NORMALS: patient oriented x3 and moves all extremities S ENSORIUM/ORIENTATION: Yes alert Skin: OTHER: Diffuse rash with macules, patches of erythema of chest and abdomen, shoulders, legs Skin tears after falls on the right forehead, right elbow Data 04/10/25 02:45 04/10/25 02:45 A&P Assessment and plan 1. JOSSELYN (acute kidney injury): Suspect prerenal JOSSELYN, possibly ATN, versus possibly progression of his CKD. Does not appear in acute failure. Hold diuretic. Albumin. Monitor for risk of fluid overload. Repeat renal studies. Reviewed UA. Fluid balance. - Hackler Doll Wigs 1.9, BUN 40 - Keep MAP >65 - Monitor K and Phos closely. - Strict I&O's - Avoid nephrotoxins - Cmp dly Discussed with nursing, case planner. 2. Chronic diastolic congestive heart failure: I do not think he is in acute CHF exacerbation, in fact concern discussed of possible overdiuresis. Currently no JVD, no crackles, he does not having orthopnea. Some edema may be related to venous insufficiency. Concern for overdiuresis causing JOSSELYN. Given additional albumin dose hold diuretic for now. Reassess volume status. Discussed with him and his son. Continue fluid restriction. And advised to continue at home. Reports of rash due to sulfa -discussed to discontinue Bumex. Consider ethacrynic acid at discharge. Spironolactone if needed can be used in patient. Reviewed venous duplex, negative for DVT. Reviewed chemistry. Fluid balance. - Last Echo 09/02/24 reviewed: Normal left ventricular size, systolic function and wall thickness, with no regional wall motion abnormalities. Left ventricular ejection fraction is estimated at 60 %. Grade III/IV diastolic dysfunction (restrictive filling pattern), severely elevated filling pressures. Grade IV/IV diastolic dysfunction(irreversible restrictive filling pattern), severely elevated filling pressures. Moderately increased right atrial size. Severely thickened mitral valve. Severe mitral annular calcification. Normal prosthetic aortic valve sitting in a normal position without valvular and paravalvular leak.Thickened tricuspid valve. Severe tricuspid valve regurgitation. There is no pericardial effusion. Right atrial pressure is around 10 mm of mercury. - 04/09: EKG: Paced, no ST changes, QRS 170, QTc 498, HR 59 - BNP 7800 - Patient c/o increased exertional dyspnea, and increased weakness - Strict I's and O's - Fluid restriction 1,200ml - Daily weights - cardiac diet - Albumin 25 mg IV - Continuous cardiac monitoring 3. S/P TAVR (transcatheter aortic valve replacement): Does not appear on antiplatelet, will need to confirm 4. Transaminitis: - AST 67, ALT 49, bilirubin 1 - Avoid hepatotoxic agents -Monitor CMP daily 5. Increased fatigable muscle weakness: - Patient has increased weakness with 2 falls within 1 week. Advised use of walker at all times not just outside. - PT and OT to evaluate 6. Multiple falls: - As per above His is also currently admitted in the hospital. His son is considering further arrangements for postdischarge care. 7. Rash: Discontinue Bumex due to reports of drug reaction to sulfa. Consider ethacrynic acid as outpatient, not available inpatient. Spironolactone can be used if needed. - Diffuse maculopapular erythematous rash over trunk and extremities - As per above. Following PCP, dermatology outpatient w/ recent medication changes. 8. Drug eruption: - All medications stopped as per PCP. He had been on Bumex, would discontinue due to reported drug eruption secondary to sulfa. 9. Gastroesophageal reflux disease without esophagitis: ? Protonix 40 mg p.o. twice daily 10. Type 2 diabetes mellitus without complication, without long-term current use of insulin: - Patient manages with diet - A1c ordered, pending. Plan: CODE STATUS: Full code GI prophylaxis: Protonix 40 mg p.o. twice daily VTE prophylaxis: Heparin 5000 U SQ twice daily PDMP PDMP Reviewed: Not Reviewed Attestations 2 Medical Necessity Statement*: Continue observation to reassess renal function and volume status with JOSSELYN on CKD and underlying CHF. and High MDM includes amount and/or complexity of data reviewed/ordered [ resulted lab(s)/test(s), ordered lab(s)/test(s), independent historian and other healthcare professional discussion] and described risk of complication, morbidity or mortality of management as documented Diagnoses JOSSELYN (acute kidney injury) N17.9 Chronic diastolic congestive heart failure I50.32 Heart failure type: diastolic S/P TAVR (transcatheter aortic valve replacement) Z95.2 Transaminitis R74.01 Increased fatigable muscle weakness M62.89 Multiple falls R29.6 Rash R21 Drug eruption L27.0 Gastroesophageal reflux disease without esophagitis K21.9 Esophagitis presence: without esophagitis Type 2 diabetes mellitus without complication, without long-term current use of insulin E11.9 Diabetes mellitus complication status: without complication Diabetes mellitus front office supervisor insulin use: without front office supervisor use
[2025-04-11 01:12] VITALS: BP 113/61; PULSE 63; RESP 20; O2SAT 96
[2025-04-11 04:26] LABS: Hematocrit 30.3 % (37-53); Hemoglobin 9.30 g/dL (11.27-16.99); Mean Corpuscular HGB Conc 30.7 g/dL (30-55); Mean Corpuscular Hemoglobin 27.9 pg (27-33); Mean Corpuscular Volume 91.0 fl (82-101); Nucleated Red Blood Cells % 0.5 %; Platelet Count 105 10^3/cmm (157-399); Red Blood Count 3.33 10^6/uL (3.85-5.65); White Blood Count 5.59 10^3/uL (3.29-11.43)
[2025-04-11 04:45] LABS: Alanine Aminotransferase 39 U/L (0-41); Albumin Level 3.0 g/dL (3.5-5.2); Alkaline Phosphatase 88 U/L (40-130); Anion Gap 15.3 (5-19); Aspartate Amino Transferase 53 U/L (0-40); Blood Urea Nitrogen 42 mg/dL (8-23); Calcium 8.6 mg/dL (8.5-10.5); Carbon Dioxide 27 mmol/L (22-29); Chloride 101 mmol/L (98-107); Globulin 3.0 g/dL (1.3-4.6); Glucose 112 mg/dL (65-115); Magnesium 2.2 mg/dL (1.7-2.3); Osmolality Calculated 301 mOsm/kg (285-295); Potassium 3.3 mmol/L (3.5-5.1); Sodium 140 mmol/L (136-145); Total Protein 6.0 g/dL (6.6-8.7)
[2025-04-11 05:44] VITALS: BP 102/53; PULSE 60; RESP 22; O2SAT 96
[2025-04-11] MEDS: heparin 5,000 unit/mL INJ 1 mL 5000 UNIT SUBCUT ×2 (06:15→19:22)
--- NOTE | 2025-04-11 07:42 | PC.NURSE ---
0053- Patient has been voiding 100-200 ml every time he pees. Per patient he still feel as if he has to go. Patient was bladder scanned and had [address] Bruce notified regarding the feeling of having to go. Per Dr. Bruce next time patient voids do a post void residual. If he has greater than [address] a Fc[address]
[2025-04-11 07:44] VITALS: BP 100/54; PULSE 73; RESP 16; TEMP 36.6; O2SAT 97
[2025-04-11 11:53] VITALS: BP 109/56; PULSE 65; RESP 20; O2SAT 95
[2025-04-11] MEDS: ondansetron 2 mg/ML SDV 2 mL 4 MG IVP (13:42)
[2025-04-11 15:38] VITALS: BP 104/52; PULSE 64; RESP 19; O2SAT 92
--- NOTE | 2025-04-11 19:27 | PM.PN ---
Subjective Subjective: Patient is complaining of urine discomfort, large area of lower abdominal swelling. Entire trunk is erythematous, blanching. Discussed with nurse, preliminary bladder scan showed 200 cc of retained urine. Slightly worsening kidney function on labs today. Vitals/I&O/Wt Last Vital Signs Temp 97.8 F 04/11/25 07:44 Pulse 64 04/11/25 15:38 Resp 19 H 04/11/25 15:38 BP 104/52 04/11/25 15:38 Pulse Ox 92 04/11/25 15:38 O2 Del Method Room Air 04/11/25 05:44 04/11/25 04/11/25 04/11/25 06:59 14:59 22:59 Intake Total 1795 / 3815 600 / 600 120 / 720 Output Total 275 / 900 200 / 200 Balance 1520 / 2915 400 / 400 120 / 520 Weight last 48 hrs Weight 87.5 kg Weight 89.04 kg Physical Exam Const: COMMON NORMALS: patient oriented x3 and alert GENERAL APPEARANCE: cooperative ORIENTATION/CONSCIOUSNESS: Yes awake HENMT: COMMON NORMALS: oropharynx normal Neck/C-Spine: COMMON NORMALS: no JVD Resp: COMMON NORMALS: normal respiratory effort and clear to auscultation bilaterally AUSCULTATION: clear to auscultation bilaterally Cardio: COMMON NORMALS: no JVD, regular rhythm, S1 normal heart sound present, S2 normal heart sound present and No murmurs present (Cardio) RHYTHM: regular rhythm HEART SOUNDS: S1 normal heart sound present and S2 normal heart sound present GI: COMMON NORMALS: Normal to inspection, nondistended, normoactive bowel sounds present, Soft to palpation and non-tender PALPATION: Yes Soft to palpation and Yes Bladder palpation abnormal (Distended and hard) : BLADDER/KIDNEY EXAM: Yes Bladder palpation abnormal (Distended and hard) Extremity: COMMON NORMALS: no joint enlargement OTHER: 2+ ankle edema Neuro: COMMON NORMALS: patient oriented x3 and moves all extremities SENSORIUM/ORIENTATION: Yes alert Skin: OTHER: Diffuse rash with macules, patches of erythema of chest and abdomen, shoulders, legs Skin tears after falls on the right forehead, right elbow. Blanching to palpation Data 04/11/25 04:03 04/11/25 04:03 A&P Assessment and plan 1. JOSSELYN (acute kidney injury): Suspect prerenal JOSSELYN, possibly ATN, versus possibly progression of his CKD. Does not appear in acute failure. Hold diuretic. Albumin. Monitor for risk of fluid overload. Repeat renal studies. Worsening kidney function, with fullness of the bladder and signs of urinary retention per bladder scan. Suspect postobstructive kidney injury. Will place Rao catheter tonight, measure urine output. Increased tamsulosin to 0.8 mg daily. Reviewed UA. Fluid balance. - Lap Machine Tender 1.9, BUN 40 - Keep MAP >65 - Monitor K and Phos closely. - Strict I&O's - Avoid nephrotoxins - Cmp dly Discussed with nursing, case consultant. 2. Chronic diastolic congestive heart failure: I do not think he is in acute CHF exacerbation, in fact concern discussed of possible overdiuresis. Currently no JVD, no crackles, he does not having orthopnea. Some edema may be related to venous insufficiency. Concern for overdiuresis causing JOSSELYN. Given additional albumin dose hold diuretic for now. Reassess volume status. Discussed with him and his son. Continue fluid restriction. And advised to continue at home. Reports of rash due to sulfa -discussed to discontinue Bumex. Consider ethacrynic acid at discharge. Spironolactone if needed can be used in patient. Reviewed venous duplex, negative for DVT. Reviewed chemistry. Fluid balance. - Last Echo 09/02/24 reviewed: Normal left ventricular size, systolic function and wall thickness, with no regional wall motion abnormalities. Left ventricular ejection fraction is estimated at 60 %. Grade III/IV diastolic dysfunction (restrictive filling pattern), severely elevated filling pressures. Grade IV/IV diastolic dysfunction(irreversible restrictive filling pattern), severely elevated filling pressures. Moderately increased right atrial size. Severely thickened mitral valve. Severe mitral annular calcification. Normal prosthetic aortic valve sitting in a normal position without valvular and paravalvular leak.Thickened tricuspid valve. Severe tricuspid valve regurgitation. There is no pericardial effusion. Right atrial pressure is around 10 mm of mercury. - 04/09: EKG: Paced, no ST changes, QRS 170, QTc 498, HR 59 - BNP 7800 - Patient c/o increased exertional dyspnea, and increased weakness - Strict I's and O's - Fluid restriction 1,200ml - Daily weights - cardiac diet - Albumin 25 mg IV - Continuous cardiac monitoring Currently stable,Patient has no respiratory discomfort will hold off on diuretics for now 3. S/P TAVR (transcatheter aortic valve replacement): Does not appear on antiplatelet, will need to confirm 4. Transaminitis: - AST 67, ALT 49, bilirubin 1 - Avoid hepatotoxic agents -Monitor CMP daily 5. Increased fatigable muscle weakness: - Patient has increased weakness with 2 falls within 1 week. Advised use of walker at all times not just outside. - PT and OT to evaluate 6. Multiple falls: - As per above His is also currently admitted in the hospital. His son is considering further arrangements for postdischarge care. 7. Rash: Discontinue Bumex due to reports of drug reaction to sulfa. Consider ethacrynic acid as outpatient, not available inpatient. Spironolactone can be used if needed. - Diffuse maculopapular erythematous rash over trunk and extremities, since it is diffuse and blanching. Appears to be a histamine reaction from likely acute drug allergy. Will switch pantoprazole to IV famotidine. Symptomatic treatment with IV Benadryl 50 mg every 24 hours. 8. Drug eruption: - All medications stopped as per PCP. He had been on Bumex, would discontinue due to reported drug eruption secondary to sulfa. Continue to hold Bumex. Patient does not have any signs of decompensation currently. Refer to plan above, for symptomatic treatment. Medication management 9. Gastroesophageal reflux disease without esophagitis: ? Substitute Protonix due to potential allergy for famotidine IV 20 mg every 12 hours. Assess effect 10. Type 2 diabetes mellitus without complication, without long-term current use of insulin: Well-controlled, continue current management Plan: CODE STATUS: Full code GI prophylaxis: Famotidine IV 20 mg twice daily VTE prophylaxis: Heparin 5000 U SQ twice daily PDMP PDMP Reviewed: Not Reviewed Attestations Medical Necessity Statement*: Continue observation status, consider transition to inpatient status if patient is having acute urinary retention. Treatment of JOSSELYN, suspect postobstructive. Diagnoses JOSSELYN (acute kidney injury) N17.9 Chronic diastolic congestive heart failure I50.32 Heart failure type: diastolic S/P TAVR (transcatheter aortic valve replacement) Z95.2 Transaminitis R74.01 Increased fatigable muscle weakness M62.89 Multiple falls R29.6 Rash R21 Drug eruption L27.0 Gastroesophageal reflux disease without esophagitis K21.9 Esophagitis presence: without esophagitis Type 2 diabetes mellitus without complication, without long-term current use of insulin E11.9 Diabetes mellitus complication status: without complication Diabetes mellitus [facility] insulin use: without long term care phlebotomist use
[2025-04-11 20:00] VITALS: BP 98/64; PULSE 60; RESP 18; TEMP 36.1; O2SAT 97
--- NOTE | 2025-04-11 20:13 | PC.NURSE ---
pt c/o suprapubic discomfort which escalated throughout the day.pt had voided very little..bladder scan showed [address] zhao examined pt and ordered stephenson catheter placement and adjusted tamsulosin dose.after catheter inserted the pain began to subside
[2025-04-11] MEDS: diphenhydrAMINE 50 mg/mL SDV 1mL IVP (20:29)
[2025-04-12] VITALS (41 sets, daily range): BP systolic 74–131; BP diastolic 30–88; PULSE 60–67; RESP 15–30; TEMP 31.8–36.3; O2SAT 87–98
--- NOTE | 2025-04-12 02:18 | PC.NURSE ---
2245- Patient very fidgety and having issues remembering date/situation. Patient also seems to slur words and is mumbling. Bed alarm was set at beginning of shift, setting it off twice and slipping water at bedside. Full neuro assessment done. Patient does have poor vision and was not wanting to cooperate. Sports Information Director equal, facial feature symmetrical, denies any numbness/decrease sensation. Patient is becoming agitated and ripping off pulse ox. Dr. Bruce notified and MD to place orders. Patient moved closer to nurses station and also given trazadone as patient has not slept the last two nights. 0215- Requesting something to help with sleep at this time due to patient still being restless.
[2025-04-12 03:34] LABS: Hematocrit 31.7 % (37-53); Hemoglobin 9.70 g/dL (11.27-16.99); Mean Corpuscular HGB Conc 30.6 g/dL (30-55); Mean Corpuscular Hemoglobin 28.4 pg (27-33); Mean Corpuscular Volume 92.7 fl (82-101); Nucleated Red Blood Cells % 0.3 %; Platelet Count 79 10^3/cmm (157-399); Red Blood Count 3.42 10^6/uL (3.85-5.65); White Blood Count 7.67 10^3/uL (3.29-11.43)
[2025-04-12 03:59] LABS: Alanine Aminotransferase 41 U/L (0-41); Albumin Level 2.9 g/dL (3.5-5.2); Alkaline Phosphatase 87 U/L (40-130); Anion Gap 16.1 (5-19); Aspartate Amino Transferase 61 U/L (0-40); Blood Urea Nitrogen 42 mg/dL (8-23); Calcium 8.4 mg/dL (8.5-10.5); Carbon Dioxide 26 mmol/L (22-29); Chloride 105 mmol/L (98-107); Globulin 3.0 g/dL (1.3-4.6); Glucose 62 mg/dL (65-115); Magnesium 2.3 mg/dL (1.7-2.3); Osmolality Calculated 304 mOsm/kg (285-295); Potassium 4.1 mmol/L (3.5-5.1); Sodium 143 mmol/L (136-145); Total Protein 5.9 g/dL (6.6-8.7)
--- NOTE | 2025-04-12 08:24 | PC.NURSE ---
Physician notified of patient current status. Patient level of consciousness significantly changed, patient has wheezing and crackles, hypotensive 70's/40s manually. Received orders to start levophed and give solu-medrol IVP
[2025-04-12] MEDS: methylPREDNISolone sod succ 40 mg/mL INJ IVP (08:32)
[2025-04-12] MEDS: norepinephrine 4 MG/250 ML BAG 7.5 MG IV (08:32)
--- NOTE | 2025-04-12 09:30 | CT_ITS ---
WS: [id number] CT HEAD NONCONTRAST HISTORY: altered mental status, recent head injury TECHNIQUE: Contiguous axial imaging performed through the brain. Bone and soft tissue windows. Sagittal and coronal reformats reviewed. All CT scans at [facility] use at least one of these dose optimization techniques: automated exposure control; mA and/or kV adjustment per patient size (includes targeted exams where dose is matched to clinical indication); or iterative reconstruction. DLP: 1979.68 mGy.cm COMPARISON: 04/09/2025 Motion artifact. No large areas of hemorrhage. Small acute hemorrhages would be obscured by the amount of motion. Moderate to severe atrophy and small vessel changes. Patchy hypodensities throughout. Prior infarct RIGHT occipital lobe. Ventricles: Normal size with no hydrocephalus. No inferior displacement the cerebellar tonsils. Paranasal sinuses: As visualized are clear. Mastoid air cells: Well pneumatized. Calvarium and scalp: Skull is intact with no soft tissue edema or swelling. Dense calcifications in the intracranial carotid arteries. CT/CT head wo con* [id number] IMPRESSION: 1. CT quality is compromised by motion artifact. 2. No acute intracranial hemorrhage or edema identified. 3. Moderate to severe atrophy and small vessel disease. 4. Prior infarct RIGHT occipital lobe.
--- NOTE | 2025-04-12 09:53 | PC.NURSE ---
Patient transferred to ICU. ICU nurse at bedside, patient family notified.
[2025-04-12 12:01] LABS: Base Excess VBG 1.2 mmol/L (-3.0-3.0); Blood Gas Allen Test Pos; Blood Gas Operator Identificat BD; Blood Gas Sample Site VEIN; Blood Gas Sample Type Venous; HCO3 VBG 25.0 mmol/L (24-28); PCO2 VBG 35.6 mmHg (41-51); PO2 VBG 104.0 mmHg (25-40); Venous Blood Gas Hematocrit 32.7 % (42-52); pH VBG 7.45 (7.32-7.42)
[2025-04-12] MEDS: cefepime 2,000 mg SDV 2000 MG IVP (13:04)
[2025-04-12] MEDS: octreotide 500 MCG in sodium chloride 0.9% (100 ml) 100 ML 10.1 MCG IV ×2 (13:16→23:06)
--- NOTE | 2025-04-12 13:54 | PC.NURSE ---
Received patient from CSU unable to answer questions, only startles with touch / stimuli. Doesn't follow commands. Nonsense sounds noted. Cool to touch temp 97.2 - reportedly altered since last night. Transferred to icu due to low blood pressure. Levophed at 2 mcg/min. Pupils pinpoint unreactive. No tracking noted with head turns. MD into see patient fluid bolus ordered. Patient to go to CT to rule out brain bleed due to previous head injury. Family to bedside.
--- NOTE | 2025-04-12 16:13 | PC.OT ---
OT TREATMENT HELD TODAY PATIENT TRANSFERRED TO ICU. OTR TO CHECK ON PATIENT TOMORROW
--- NOTE | 2025-04-12 18:21 | PC.NURSE ---
Patient back to being lethargic and not following commands. Vitals stable. except temp tympanic 95.3. Rectal 93 ow saturations in high 80's to low 90% placed on o2 at 2l nc. Respirations 20-24. Daughter remains at bedside. accucheck 127. Dr. Feliciano updated on status. Additional warming to be added. MD to discus code status with who is inpatient on medical floor.
--- NOTE | 2025-04-12 19:16 | P.PN_ITS ---
Subjective 2 Subjective: Notified by nurse at 8 AM this morning, patient was acutely encephalopathic, low BP 90/70 ? Despite the IV diphenhydramine, famotidine, and modifying medications, patient still had blanching erythema around his abdomen and diffusely ? Patient remained encephalopathic, transferred to ICU for resuscitation and low-dose vasopressors ? Obtain blood cultures, initiate empiric antibiotic therapy with cefepime ? Minimal urine output per Rao Nonoliguric overnight, output 350 cc 2 hours later, patient did become lucid after receiving IV dextrose and fluid resuscitation, initiated octreotide ? Patient found to be hypothermic with rectal temperature measuring 90 ?F ? Initiated hypothermic rewarming with water flowing rewarming blanket beneath, Tristan hugger above ? Currently patient is rewarming, with saline boluses as needed on board to prevent vasodilation hypotension ? Patient remains relatively stable, resting comfortably ? Family at bedside, had goals of care discussion, considering DNR status/no intubation. ? Delirium efforts to minimize delirium, open windows during the day, sitter one-to-one at all times, try to avoid pharmacological intervention Vitals/I&O/Wt Last Vital Signs Temp 95.8 F L 04/12/25 16:00 Pulse 60 04/12/25 16:00 Resp 25 H 04/12/25 16:00 BP 103/59 04/12/25 16:00 Pulse Ox 93 04/12/25 16:00 O2 Del Method Room Air 04/12/25 15:45 04/12/25 04/12/25 04/12/25 06:59 14:59 22:59 Intake Total 500 / 1220 661.313 / 661.313 125 / 786.313 Output Total 350 / 700 20 / 20 Balance 150 / 520 641.313 / 641.313 125 / 766.313 Weight last 48 hrs Weight 86.4 kg Weight 86.4 kg Weight 87.5 kg Physical Exam 2 Const: COMMON NORMALS: patient oriented x3 (Disoriented x 0 early on, reoriented on reexamination. Now resting) GENERAL APPEARANCE: cooperative ORIENTATION/CONSCIOUSNESS: Yes awake HENMT: COMMON NORMALS: oropharynx normal Neck/C-Spine: COMMON NORMALS: no JVD Resp: COMMON NORMALS: normal respiratory effort and clear to auscultation bilaterally AUSCULTATION: clear to auscultation bilaterally Cardio: COMMON NORMALS: no JVD, regular rhythm, S1 normal heart sound present, S2 normal heart sound present and No murmurs present (Cardio) RHYTHM: regular rhythm HEART SOUNDS: S1 normal heart sound present and S2 normal heart sound present GI: COMMON NORMALS: Normal to inspection, nondistended, normoactive bowel sounds present, Soft to palpation and non-tender PALPATION: Yes Soft to palpation Extremity: COMMON NORMALS: no joint enlargement and no pedal edema Neuro: COMMON NORMALS: patient oriented x3 (Disoriented x 0 early on, reoriented on reexamination. Now resting) and moves all extremities Skin: NARRATIVE SKIN EXAM: Maintains diffuse blanching erythema, subsiding Urinary Catheter Management: Rao: Cath Placed During This Visit: yes Reason for Continuing Indwelling Catheter: Accurate Measurement of Urinary Output in Critically Ill Patients Urinary Catheter Date of Insertion: 04/11/25 Data 04/12/25 03:00 04/12/25 03:00 Micro: Microbiology 04/12/25 11:59 Blood Culture - Preliminary Blood SPECIMEN COLLECTED 04/12/25 11:54 Blood Culture - Preliminary Blood SPECIMEN COLLECTED A&P Assessment and plan 1. JOSSELYN (acute kidney injury): Stable creatinine, urine output yesterday, minimal today due to hypotension, possible short ATN ? Continue monitoring urine output every shift with Rao catheter ? Continue to monitor creatinine daily ? Continue fluid resuscitation, will obtain UA 2. Chronic diastolic congestive heart failure: I do not think he is in acute CHF exacerbation, in fact concern discussed of possible overdiuresis. Currently no JVD, no crackles, he does not having orthopnea. Some edema may be related to venous insufficiency. Concern for overdiuresis causing JOSSELYN. Given additional albumin dose hold diuretic for now. Reassess volume status. Discussed with him and his son. Continue fluid restriction. And advised to continue at home. Reports of rash due to sulfa -discussed to discontinue Bumex. Consider ethacrynic acid at discharge. Spironolactone if needed can be used in patient. Reviewed venous duplex, negative for DVT. Reviewed chemistry. Fluid balance. - Last Echo 09/02/24 reviewed: Normal left ventricular size, systolic function and wall thickness, with no regional wall motion abnormalities. Left ventricular ejection fraction is estimated at 60 %. Grade III/IV diastolic dysfunction (restrictive filling pattern), severely elevated filling pressures. Grade IV/IV diastolic dysfunction(irreversible restrictive filling pattern), severely elevated filling pressures. Moderately increased right atrial size. Severely thickened mitral valve. Severe mitral annular calcification. Normal prosthetic aortic valve sitting in a normal position without valvular and paravalvular leak.Thickened tricuspid valve. Severe tricuspid valve regurgitation. There is no pericardial effusion. Right atrial pressure is around 10 mm of mercury. - 04/09: EKG: Paced, no ST changes, QRS 170, QTc 498, HR 59 - BNP 7800 - Patient c/o increased exertional dyspnea, and increased weakness - Strict I's and O's - Fluid restriction 1,200ml - Daily weights - cardiac diet - Albumin 25 mg IV - Continuous cardiac monitoring Currently stable,Patient has no respiratory discomfort will hold off on diuretics for now 3. S/P TAVR (transcatheter aortic valve replacement): Does not appear on antiplatelet, will need to confirm 4. Transaminitis: Mild, stable 5. Increased fatigable muscle weakness: - Patient has increased weakness with 2 falls within 1 week. Advised use of walker at all times not just outside. - PT and OT to evaluate 6. Multiple falls: - As per above His is also currently admitted in the hospital. His son is considering further arrangements for postdischarge care. 7. Rash: Discontinue all medications potentially causing hypersensitivity reaction ? With hypotension, flushing, hypothermia and vasodilation, possible etiology other than hypersensitive include carcinomatosis ? Start empiric octreotide 50 mcg/h, continuous until patient is stable for any diagnostic evaluation, CTA abdomen when kidney function improves 8. Drug eruption: - All medications stopped as per PCP. He had been on Bumex, would discontinue due to reported drug eruption secondary to sulfa. Continue to hold Bumex. Patient does not have any signs of decompensation currently. Refer to plan above, for symptomatic treatment. Medication management 9. Gastroesophageal reflux disease without esophagitis: ? Substitute Protonix due to potential allergy for famotidine IV 20 mg every 12 hours. Assess effect 10. Type 2 diabetes mellitus without complication, without long-term current use of insulin: Well-controlled, continue current management Plan: CODE STATUS: Full code GI prophylaxis: Famotidine IV 20 mg twice daily VTE prophylaxis: Heparin 5000 U SQ twice daily PDMP PDMP Reviewed: Not Reviewed Attestations 2 Medical Necessity Statement*: Continue inpatient status with ICU, for shock, vasodilation, hypothermia Critical Care Time: Performed a total of 65 minutes of critical care time, including reviewing labs, medical medication management, titration of IV vasopressors, management of hypothermia Critical Care Time (min): 65 Coding Level of Care Code Critical Care >/= 30 minutes Diagnoses JOSSELYN (acute kidney injury) N17.9 Chronic diastolic congestive heart failure I50.32 Heart failure type: diastolic S/P TAVR (transcatheter aortic valve replacement) Z95.2 Transaminitis R74.01 Increased fatigable muscle weakness M62.89 Multiple falls R29.6 Rash R21 Drug eruption L27.0 Gastroesophageal reflux disease without esophagitis K21.9 Esophagitis presence: without esophagitis Type 2 diabetes mellitus without complication, without long-term current use of insulin E11.9 Diabetes mellitus complication status: without complication Diabetes mellitus group home insulin use: without salvage determiner use
--- NOTE | 2025-04-12 20:45 | PM.CONSULT ---
Providers/Reason For Consult Consulting Physician/Specialty*: Dr Tin Pace Reason for Consult*: Shock Attending Physician: Dave Feliciano MD Primary Care Provider: Hu Fu MD History of Present Illness History of Present Illness Moiz Hernandez is a 89 year old male with past medical history of Sj?gren's syndrome positive ELINOR 1 history 1280 titer, positive SSA and SSB, seen by Dr. Tai for joint pain and skin rash recently after being diagnosed with drug rash status post skin biopsy by dermatology for drug eruption rash. Patient was on 40 mg of prednisone. Patient has been dealing with confusion over the last 6 to 8 weeks minimum per family at bedside. Reports no fever but has been ongoing confusion and brought him to the hospital. Currently multiple derangements seen including acute encephalopathy acute renal failure and anemia and probable DIC. He was also found to be hypotensive started on Levophed drip and transferred to the ICU. Due to blood glucose being low he was started drip as well as octreotide. He was hypothermic as well with a temp of 90 ?F. Review of systems unobtainable patient is lethargic Medications/Allergies Home Medications ?Medication ?Instructions ?Recorded ?Confirmed ?Last Taken ?Type blood sugar diagnostic (Contour #50 ea 05/18/22 04/09/25 Unknown Rx Next Test Strips) acetaminophen 325 mg tablet 325 mg PO QID PRN Pain 01/24/24 04/09/25 09/02/24 History (Tylenol) tamsulosin 0.4 mg capsule 0.4 mg PO DAILY 01/24/24 04/09/25 02/12/25 History Held on 03/31/25. Instructions: Home Medication placed on hold at Doctor's office clobetasol 0.05 % topical cream 1 applic topical BID 2 weeks #45 01/16/25 04/09/25 02/11/25 Rx grams furosemide 40 mg tablet (Lasix) 40 mg PO QAM #30 tabs 03/08/25 04/09/25 Unknown Rx Held on 03/31/25. Instructions: Home Medication placed on hold at Doctor's office losartan 25 mg tablet 25 mg PO QDAY 03/31/25 04/09/25 Unknown History Held on 03/31/25. Instructions: Home Medication placed on hold at Doctor's office metolazone 2.5 mg tablet 2.5 mg PO QDAY 03/31/25 04/09/25 Unknown History Held on 03/31/25. Instructions: Home Medication placed on hold at Doctor's office potassium chloride 20 mEq 20 meq PO QDAY #60 tabs 03/31/25 04/09/25 04/09/25 Rx tablet,extended release amoxicillin 500 mg-potassium 1 tab PO TID #30 tabs 04/05/25 04/09/25 04/09/25 Rx clavulanate 125 mg tablet (Augmentin) bumetanide 2 mg tablet 2 mg PO BID #30 tabs 04/05/25 04/09/25 04/09/25 Rx hydrocodone 5 mg-acetaminophen 325 1 tab PO Q8H PRN pain 2 weeks #30 04/08/25 04/09/25 Unknown Rx mg tablet tabs doxepin 10 mg capsule 10 mg PO BEDTIME 04/09/25 04/09/25 Unknown History dupilumab 300 mg/2 mL subcutaneous 300 mg SUBCUT Q7D 04/09/25 04/09/25 Unknown History pen injector (Dupixent) leflunomide 10 mg tablet 10 mg PO DAILY 04/09/25 04/09/25 Unknown History omeprazole 40 mg capsule,delayed 40 mg PO QAM 04/09/25 04/09/25 Unknown History release prednisone 5 mg tablet 5 mg PO DAILY 04/09/25 04/09/25 Unknown History tadalafil 5 mg tablet 5 mg PO DAILY 04/09/25 04/09/25 Unknown History trazodone 100 mg tablet 100 mg PO BEDTIME 04/09/25 04/09/25 Unknown History Allergies Allergy/AdvReac Type Severity Reaction Status Date / Time Sulfa (Sulfonamide Allergy rash Verified 04/12/25 12:51 Antibiotics) Current Medications Generic Name Dose Route Start Last Admin Trade Name Freq PRN Reason Stop Dose Admin Acetaminophen 650 mg 04/09/25 18:12 04/09/25 22:43 Acetaminophen 325 Mg Tablet PO 650 mg Q6H PRN Administration Mild/Mod Pain Or Temp >/= 101 Diphenhydramine HCl 50 mg 04/11/25 18:20 04/12/25 19:14 Diphenhydramine 50 Mg/Ml Sdv 1ml IVP Not Given Q24H BIRDIE Famotidine 20 mg 04/11/25 18:30 04/12/25 19:32 Famotidine 20 Mg/2 Ml Inj IVP 20 mg Q24H BIRDIE Administration Norepinephrine Bitartrate 4 mg in 250 mls @ 0 mls/hr 04/12/25 08:30 04/12/25 13:30 Levophed IV 0 mcg/min .Q0M BIRDIE 0 mls/hr Protocol Titration Per Protocol Octreotide Acetate 500 mcg/ 101 mls @ 10.1 mls/hr 04/12/25 13:15 04/12/25 13:24 Sodium Chloride IV 04/13/25 13:14 Not Given .Q10H BIRDIE 50 MCG/HR Dextrose 1,000 mls @ 75 mls/hr 04/12/25 15:45 04/12/25 19:00 D10w IV 75 mls/hr .[id number] BIRDIE Administration Ondansetron HCl 4 mg 04/09/25 18:12 04/11/25 13:42 Ondansetron 2 Mg/Ml Sdv 2 Ml IVP 4 mg Q8H PRN Administration vomiting, or N/V if npo Tamsulosin HCl 0.8 mg 04/12/25 05:00 04/12/25 07:49 Tamsulosin 0.4 Mg Capsule PO Not Given DAILY BIRDIE Trazodone HCl 100 mg 04/09/25 20:00 04/11/25 23:22 Trazodone 100 Mg Tablet PO 100 mg BEDTIME PRN Administration SLEEP PFSH Acute PFSH: Medical History (Updated 04/12/25 @ 07:47 by Basilio Quintero DO) Drug eruption Polyarthralgia Positive antinuclear antibody Primary Sjogren's syndrome History of transcatheter aortic valve replacement (TAVR) History of colon polyps Impairment of balance Sleeplessness Left inguinal hernia Urinary hesitancy Nocturia more than twice per night Change in stool habits Abdominal discomfort Hx of basal cell carcinoma Allergic rhinitis Chronic neck pain Type 2 diabetes mellitus Diet managed Chronic anticoagulation INR goal 2-3 Hx pulmonary embolism Hypertension Surgical History (Updated 04/12/25 @ 07:47 by Basilio Quintero DO) History of inguinal hernia repair History of mitral valve repair History of colonoscopy History of esophagogastroduodenoscopy Hx of cataract surgery Family History Other CAD (coronary artery disease) Cancer Diabetes Heart attack Hyperlipidemia Hypertension Rheumatoid arthritis Stroke Denies family history of Lupus Chronic kidney disease (CKD) Social History Smoking and tobacco/nicotine status: former use of tobacco/nicotine Quit status (tobacco/nicotine): has quit using Former quit date comment: over 40 years ago Alcohol intake: current Alcohol intake frequency: few times a week Substance/Drug Use: never Vitals/I&O/Wt Last Vital Signs Temp 95.8 F L 04/12/25 16:00 Pulse 60 04/12/25 19:45 Resp 19 H 04/12/25 19:45 BP 107/54 04/12/25 19:45 Pulse Ox 90 04/12/25 19:45 O2 Del Method Room Air 04/12/25 15:45 04/12/25 04/12/25 04/12/25 06:59 14:59 22:59 Intake Total 500 / 1220 661.313 / 416.591 3308 / 1786.313 Output Total 350 / 700 / 20 Balance 150 / 520 641.313 / 946.301 8868 / 1766.313 Weight last 48 hrs Weight 190 lb 7.67 oz Weight 190 lb 7.67 oz Weight 192 lb 14.472 oz Physical Exam Narrative: Per RN General: Lethargic elderly appearing male Pulmonary: Diminished breath sounds bilaterally Cardiovascular: rrr, nl s1s2, Abdomen: soft, nt, nd, no r/g, Extremities: Raised maculopapular rash affecting extremities some on the abdomen but sparing face and chest Neurologic: grossly moving all extremities Agree with above exam Urinary Catheter Management: Rao: Cath Placed During This Visit: yes Reason for Continuing Indwelling Catheter: Accurate Measurement of Urinary Output in Critically Ill Patients Urinary Catheter Date of Insertion: 04/11/25 Data 04/12/25 03:00 04/12/25 03:00 Micro: Microbiology 04/12/25 11:59 Blood Culture - Preliminary Blood SPECIMEN COLLECTED 04/12/25 11:54 Blood Culture - Preliminary Blood SPECIMEN COLLECTED A&P Assessment and plan 1. Multilobar lung infiltrate: 2. Left lower lobe pneumonia: 3. Rash due to allergy: Plan: # Shock-probable septic versus distributive or adrenal insufficiency syndrome -Reviewed all notes in detail from Dr. Tai as well as hospitalists and outpatient records. Patient is critically ill and at risk for acute decompensation and secondary to multiple metabolic derangements that require pressor support. Shock state requiring frequent assessment of end-organ perfusion and titration of IV fluid/pressor suppport. Unclear etiology at this time for shock. Probably sepsis secondary to aspiration pneumonia. Chest x-ray does confirm he has an infiltrate but no signs of white count elevation or fever reported per family. Will empirically cover with broad-spectrum antibiotics at this time with vancomycin and cefepime. Cultures reviewed so far negative - Will stop IV fluids at this time secondary to volume overload and probable acute respiratory failure issues and congestive heart failure. 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 Will start hydrocortisone at this time at 100 every 6 and monitor closely for decompensation. # Rash-unclear etiology-possibly Sjogren's exacerbation versus TTP versus drug reaction Unclear etiology could be flareup of Sjogren's or underlying connective tissue disease. Will check ELINOR titers again along with SSA and SSB. # Probable TTP Patient is critically ill with deteriorating labs and at risk for decompensation at this time. She has signs of confusion acute renal failure purpuric rash possible hemolytic anemia during his hemoglobin being low and thrombocytopenia suspicious for TTP. Will check anti-Cardona 13 antibody which is a send out test. But in the meantime we will check Aashish test, reticulocyte count, LDH. # Acute renal failure - urine output is very low, at risk for decompensation due to volume overload. Close monitoring required for creatinine and urine output. He may need plasma exchange if any of his lab work suggest TTP. For now we will start him on steroids aggressively. Also at risk for requiring renal replacement therapy soon. #. Thrombocytopenia -Peripheral blood smear has been ordered # Anemia - Probable MAHA-reticulocyte count and LDH ordered along with Aashish test # Acute metabolic encephalopathy Patient is critically ill and may require intubation. Patient's family has decided to keep him DNR/DNI for now # Hypoglycemia -Patient on dextrose drip. Hypoglycemia may be contributing to his acute encephalopathy. Will give him glucagon push at this time to prevent seizures which he is at risk for secondary to his refractory hypoglycemia # Probable aspiration pneumonia/sepsis Sepsis with acute organ dysfunction requiring frequent assessment of end-organ perfusion Will cover with antibiotics cefepime for now and monitor closely for decompensation is high risk for acute respiratory failure requiring higher support. Patient's family does not want him to be intubated he is a DNR at this time. May be okay trialing high flow cannula # Status post TAVR - Will check echocardiogram # Mild transaminitis # Multiple falls and probable muscle weakness recent history # Probable hypersensitivity reaction - Labs pending # Probable drug reaction - Biopsy results from notes reviewed # GERD # Type 2 diabetes # Hypoglycemia Dextrose drip continue # Sedation-avoid sedation # Nutrition-keep n.p.o. # DVT GI prophylaxis-SCDs and famotidine. Hold off on anticoagulation secondary to anemia # Goals of care-discussed with daughter at bedside who confirms invalidates recent deterioration # CODE STATUS-DNR/DNI # Disposition-Will need full ICU support follow-up - Discussed case with Dr. Feliciano. I am unavailable for consults for the next 2 weeks but will be touching base with the hospitalist again tomorrow regarding this critically ill patient who may need to be transferred to higher level of care if he continues to deteriorate for plasma exchange possibly The high probability of a clinically significant, sudden or life threatening deterioration of the patient's [Respiratory, cardiac and renal] system(s) required my full and direct attention, intervention and personal management. The critical care time is as shown. This time is in addition to time spent performing any reported procedures but includes the following: [x] Data and vital sign review and interpretation [x] Patient assessment, examination and intervention [x] Documentation [x] Medication orders and management Critical Care Time (min): 35 Telemedicine Consent This encounter was conducted via secure two-way interactive audiovisual telemedicine as part of tele-ICU multidisciplinary rounds. Verbal consent was obtained from the patient for the telemedicine encounter. The patient was located at [place], [place], and the provider was virtual. Individuals present at the bedside included [bedside nurse, respiratory therapist, local attending, etc.]. The audiovisual connection quality was adequate for clinical assessment, and the total [id number] time was 32 minutes. Participated in structured bedside multidisciplinary round with the local ICU team, reviewing current diagnostic hypotheses, active problems, and treatment plan. Evidence-based clinical protocols and care performance indicators were discussed with the bedside team. Clinical recommendations generated and communicated to the bedside team..? PDMP PDMP Reviewed: Not Reviewed Coding Level of Care Code Critical Care >/= 30 minutes Diagnoses Multilobar lung infiltrate R91.8 Left lower lobe pneumonia J18.9 Rash due to allergy T78.40XA; R21
[2025-04-12] MEDS: hydrocortisone 100 mg/2 mL SDV IVP (21:30)
[2025-04-12 22:04] LABS: Glucose Urine UA Negative (Normal); Nitrate Urine Negative (Negative); Specific Gravity, Urine 1.023 (1.005-1.030)
[2025-04-12 22:09] LABS: Add Urine Microscopic? YES
[2025-04-12 22:14] LABS: LAB Peripheral Smear Sent for Review
[2025-04-12 22:38] LABS: UA Slide Review UA Slide Review Perf
[2025-04-12 22:39] LABS: Hepatitis A Antibody IgM Non-Reactive (Nonreactive); Hepatitis B Surface Antigen Non-Reactive (Nonreactive)
[2025-04-13] VITALS (51 sets, daily range): BP systolic 86–134; BP diastolic 50–79; PULSE 52–62; RESP 13–29; TEMP 35.9–37; O2SAT 87–99; BMI 23.2
[2025-04-13] MEDS: hydrocortisone 100 mg/2 mL SDV IVP ×4 (04:30→19:51)
[2025-04-13 06:42] LABS: Magnesium 2.5 mg/dL (1.7-2.3)
[2025-04-13 06:43] LABS: Alanine Aminotransferase 39 U/L (0-41); Albumin Level 2.9 g/dL (3.5-5.2); Alkaline Phosphatase 88 U/L (40-130); Anion Gap 20.5 (5-19); Aspartate Amino Transferase 56 U/L (0-40); Blood Urea Nitrogen 54 mg/dL (8-23); Calcium 7.7 mg/dL (8.5-10.5); Carbon Dioxide 22 mmol/L (22-29); Chloride 105 mmol/L (98-107); Globulin 3.0 g/dL (1.3-4.6); Glucose 227 mg/dL (65-115); Osmolality Calculated 316 mOsm/kg (285-295); Potassium 5.5 mmol/L (3.5-5.1); Sodium 142 mmol/L (136-145); Total Protein 5.9 g/dL (6.6-8.7)
[2025-04-13 07:00] LABS: Hematocrit 31.2 % (37-53); Hemoglobin 9.60 g/dL (11.27-16.99); Mean Corpuscular HGB Conc 30.8 g/dL (30-55); Mean Corpuscular Hemoglobin 28.9 pg (27-33); Mean Corpuscular Volume 94.0 fl (82-101); Nucleated Red Blood Cells % 0.3 %; Platelet Count 84 10^3/cmm (157-399); Red Blood Count 3.32 10^6/uL (3.85-5.65); White Blood Count 10.75 10^3/uL (3.29-11.43)
[2025-04-13] MEDS: octreotide 500 MCG in sodium chloride 0.9% (100 ml) 100 ML 10.1 MCG IV (09:13)
[2025-04-13] MEDS: albumin 25 G/100 ML BAG 60 G IV ×2 (10:19→22:23)
--- NOTE | 2025-04-13 10:33 | PM.CONSULT ---
Providers/Reason For Consult Consulting Physician/Specialty*: kommana /Nephrology Reason for Consult*: JOSSELYN on CKD Attending Physician: Dave Feliciano MD Primary Care Provider: Hu Fu MD History of Present Illness History of Present Illness Moiz Hernandez is a 89 year old male patient is 89-year-old male with past medical history of hypertension diabetes, history of TAVR, CHF and rheumatoid arthritis who was admitted to the hospital on 04/09/2025 due to generalized weakness persistent rash going on for few months and also abnormal labs. Patient also reported having multiple falls at home. He had biopsy of the skin rash which showed possible drug eruption. In Lasix was discontinued and switched to Bumex recently for suspicion for sulfa allergy. Lab data in the emergency department has showed creatinine of 1.9 and albumin of 2.9 he is admitted for further management over the course of last 3 to 4 days his creatinine has progressively gotten worse he is oliguric and creatinine worsened up to 3.0 today and hyperkalemia with potassium of 5.5. Review of Systems Narrative: negative Medications/Allergies Home Medications ?Medication ?Instructions ?Recorded ?Confirmed ?Last Taken ?Type blood sugar diagnostic (Contour #50 ea 05/18/22 04/09/25 Unknown Rx Next Test Strips) acetaminophen 325 mg tablet 325 mg PO QID PRN Pain 01/24/24 04/09/25 09/02/24 History (Tylenol) tamsulosin 0.4 mg capsule 0.4 mg PO DAILY 01/24/24 04/09/25 02/12/25 History Held on 03/31/25. Instructions: Home Medication placed on hold at Doctor's office clobetasol 0.05 % topical cream 1 applic topical BID 2 weeks #45 01/16/25 04/09/25 02/11/25 Rx grams furosemide 40 mg tablet (Lasix) 40 mg PO QAM #30 tabs 03/08/25 04/09/25 Unknown Rx Held on 03/31/25. Instructions: Home Medication placed on hold at Doctor's office losartan 25 mg tablet 25 mg PO QDAY 03/31/25 04/09/25 Unknown History Held on 03/31/25. Instructions: Home Medication placed on hold at Doctor's office metolazone 2.5 mg tablet 2.5 mg PO QDAY 03/31/25 04/09/25 Unknown History Held on 03/31/25. Instructions: Home Medication placed on hold at Doctor's office potassium chloride 20 mEq 20 meq PO QDAY #60 tabs 03/31/25 04/09/25 04/09/25 Rx tablet,extended release amoxicillin 500 mg-potassium 1 tab PO TID #30 tabs 04/05/25 04/09/25 04/09/25 Rx clavulanate 125 mg tablet (Augmentin) bumetanide 2 mg tablet 2 mg PO BID #30 tabs 04/05/25 04/09/25 04/09/25 Rx hydrocodone 5 mg-acetaminophen 325 1 tab PO Q8H PRN pain 2 weeks #30 04/08/25 04/09/25 Unknown Rx mg tablet tabs doxepin 10 mg capsule 10 mg PO BEDTIME 04/09/25 04/09/25 Unknown History dupilumab 300 mg/2 mL subcutaneous 300 mg SUBCUT Q7D 04/09/25 04/09/25 Unknown History pen injector ([email or web address] MDX) leflunomide 10 mg tablet 10 mg PO DAILY 04/09/25 04/09/25 Unknown History omeprazole 40 mg capsule,delayed 40 mg PO QAM 04/09/25 04/09/25 Unknown History release prednisone 5 mg tablet 5 mg PO DAILY 04/09/25 04/09/25 Unknown History tadalafil 5 mg tablet 5 mg PO DAILY 04/09/25 04/09/25 Unknown History trazodone 100 mg tablet 100 mg PO BEDTIME 04/09/25 04/09/25 Unknown History Allergies Allergy/AdvReac Type Severity Reaction Status Date / Time Sulfa (Sulfonamide Allergy rash Verified 04/12/25 12:51 Antibiotics) Current Medications Generic Name Dose Route Start Last Admin Trade Name Freq PRN Reason Stop Dose Admin Acetaminophen 650 mg 04/09/25 18:12 04/09/25 22:43 Acetaminophen 325 Mg Tablet PO 650 mg Q6H PRN Administration Mild/Mod Pain Or Temp >/= 101 Diphenhydramine HCl 50 mg 04/11/25 18:20 04/12/25 19:14 Diphenhydramine 50 Mg/Ml Sdv 1ml IVP Not Given Q24H BIRDIE Enoxaparin Sodium 30 mg 04/12/25 22:00 04/12/25 21:30 Enoxaparin 30 Mg/0.3 Ml Syringe SUBCUT 30 mg Q24H BIRDIE Administration Famotidine 20 mg 04/11/25 18:30 04/12/25 19:32 Famotidine 20 Mg/2 Ml Inj IVP 20 mg Q24H BIRDIE Administration Hydrocortisone Sodium Succinate 100 mg 04/12/25 20:45 04/13/25 09:12 Hydrocortisone 100 Mg/2 Ml Sdv IVP 100 mg Q6H BIRDIE Administration Norepinephrine Bitartrate 4 mg in 250 mls @ 0 mls/hr 04/12/25 08:30 04/12/25 13:30 Levophed IV 0 mcg/min .Q0M BIRDIE 0 mls/hr Protocol Titration Per Protocol Dextrose 1,000 mls @ 50 mls/hr 04/12/25 15:45 04/13/25 02:09 D10w IV 50 mls/hr .Q20H BIRDIE Infusion Albumin Human 25 g in 100 mls @ 60 mls/hr 04/13/25 09:30 04/13/25 10:19 Albumin IV 60 mls/hr Q12H BIRDIE Administration Ondansetron HCl 4 mg 04/09/25 18:12 04/11/25 13:42 Ondansetron 2 Mg/Ml Sdv 2 Ml IVP 4 mg Q8H PRN Administration vomiting, or N/V if npo Tamsulosin HCl 0.8 mg 04/12/25 05:00 04/13/25 04:27 Tamsulosin 0.4 Mg Capsule PO Not Given DAILY BIRDIE Trazodone HCl 100 mg 04/09/25 20:00 04/11/25 23:22 Trazodone 100 Mg Tablet PO 100 mg BEDTIME PRN Administration SLEEP PFSH Acute PFSH: Medical History (Updated 04/12/25 @ 07:47 by Basilio Quintero DO) Drug eruption Polyarthralgia Positive antinuclear antibody Primary Sjogren's syndrome History of transcatheter aortic valve replacement (TAVR) History of colon polyps Impairment of balance Sleeplessness Left inguinal hernia Urinary hesitancy Nocturia more than twice per night Change in stool habits Abdominal discomfort Hx of basal cell carcinoma Allergic rhinitis Chronic neck pain Type 2 diabetes mellitus Diet managed Chronic anticoagulation INR goal 2-3 Hx pulmonary embolism Hypertension Surgical History (Updated 04/12/25 @ 07:47 by Basilio Quintero DO) History of inguinal hernia repair History of mitral valve repair History of colonoscopy History of esophagogastroduodenoscopy Hx of cataract surgery Family History Other CAD (coronary artery disease) Cancer Diabetes Heart attack Hyperlipidemia Hypertension Rheumatoid arthritis Stroke Denies family history of Lupus Chronic kidney disease (CKD) Social History Smoking and tobacco/nicotine status: former use of tobacco/nicotine Quit status (tobacco/nicotine): has quit using Former quit date comment: over 40 years ago Alcohol intake: current Alcohol intake frequency: few times a week Substance/Drug Use: never Vitals/I&O/Wt Last Vital Signs Temp 98.2 F 04/13/25 07:15 Pulse 60 04/13/25 07:45 Resp 21 H 04/13/25 07:45 BP 113/64 04/13/25 07:45 Pulse Ox 98 04/13/25 07:45 O2 Del Method Room Air 04/13/25 07:15 04/12/25 04/13/25 04/13/25 22:59 06:59 14:59 Intake Total 1125 / 1786.313 635.567 / 2421.880 109.08 / 109.08 Output Total 50 / 70 0 / 70 Balance 1075 / 1716.313 635.567 / 2351.880 109.08 / 109.08 Weight last 48 hrs Weight 86.5 kg Weight 86.4 kg Weight 86.4 kg Physical Exam Narrative: Patient is awake alert, frail elderly male, no acute distress On room air No JVD PERRLA S1-S2 regular rate and rhythm Lungs with decreased breath sounds bilaterally Abdomen soft nontender Extremities no pedal edema has Skin rash Urinary Catheter Management: Rao: Cath Placed During This Visit: yes Reason for Continuing Indwelling Catheter: Acute Urinary Retention or Obstruction Urinary Catheter Date of Insertion: 04/11/25 Data 04/13/25 06:52 04/13/25 05:23 Micro: Microbiology 04/12/25 11:59 Blood Culture - Preliminary Blood SPECIMEN COLLECTED 04/12/25 11:54 Blood Culture - Preliminary Blood SPECIMEN COLLECTED A&P Assessment and plan 1. JOSSELYN (acute kidney injury): 1. Plan: 1. Acute on chronic kidney disease stage III: Baseline creatinine seems to be in the mid 1 range. Creatinine on presentation was 1.9 worsened to 3.0 currently, oliguric and has hyperkalemia. Etiology likely ATN in the setting of shock, suspected distributive shock. Initially UA was bland , repeat UA in the setting of ATN showed proteinuria and microscopic hematuria but will repeat UA once JOSSELYN improved. Serological workup pending - Will check renal ultrasound, IV albumin, switch IV fluids from D10>-D5 normal saline at 50 cc an hour - Repeat BMP later today - Urine output has picked up today continue to monitor - Discussed with patient's daughter at bedside 2. Anemia thrombocytopenia, : Due to association of worsened mentation and renal failure, TTP was suspected and Cardona 13 was sent, hemoglobin and platelet count improving, getting steroids. Monitor Urine output is also picked up 3. Probable adenal insufficiency, patient was on chronic steroids now on high-dose steroids-hydrocortisone 100 mg every 6 hours. 4. Skin rash, status post biopsy as outpatient which was consistent with drug reaction. Discontinued all potential meds. 5. status post TAVR 6. History of CHF 7. History of Sjogrens syndrome, with possible flare up, repeat serologies were pending Patient evaluated using audiovisual cart. Time spent 40 minutes PDMP PDMP Reviewed: Not Reviewed Consult Attestations Medical Necessity Statement: per georgiana Coding Level of Care Code Acute Code for g Fwd Diagnoses JOSSELYN (acute kidney injury) N17.9
[2025-04-13] MEDS: dextrose 5%-sod chloride 0.9% 1,000 ML 50 ML IV (10:55)
--- NOTE | 2025-04-13 11:50 | PC.NURSE ---
Spoke to patient about albumin to be given to included it being a blood product and possible risks, patient at time able to tell nurse who he is and what date it is. States understood risks of medication and reason of use. Daughter not in room at this time. Due to nature of patients waxing and wayning mental status and difficulty communicating due to muddled speech- this nurse ask daughter of patient if patients would be willing to sign consent for Albumin. Daughter agreed and took consent to mother( patient in hospital for consent). Daughter witness this and signed with mother. Patient also verbally agreed to use of albumin.
[2025-04-13 18:46] LABS: Anion Gap 25.4 (5-19); Blood Urea Nitrogen 65 mg/dL (8-23); Calcium 7.6 mg/dL (8.5-10.5); Carbon Dioxide 18 mmol/L (22-29); Chloride 103 mmol/L (98-107); Glucose 181 mg/dL (65-115); Osmolality Calculated 315 mOsm/kg (285-295); Potassium 5.4 mmol/L (3.5-5.1); Sodium 141 mmol/L (136-145)
--- NOTE | 2025-04-13 20:51 | PC.NURSE ---
Transfer: Patient and all belongings were transferred to Med Surg unit, receiving nurse at bedside.
--- NOTE | 2025-04-13 21:00 | P.PN_ITS ---
Subjective 2 Subjective: Patient awake alert, doing better today. Was able to move out of bed to chair, downgrade to floor pending. ? Was hypothermic overnight, improved with hypothermia protocol, rewarming blanket/Tristan hugger Discontinued antibiotics Patient alert, awake talkative. Discussed with pulmonary nephrology, continuing workup for autoimmune/hypersensitivity syndrome Marked clinical improvement today per nursing and family. No recurrent hypotension overnight. Rash significantly improved. Vitals/I&O/Wt Last Vital Signs Temp 98.6 F 04/13/25 20:00 Pulse 59 L 04/13/25 20:00 Resp 17 04/13/25 20:00 BP 128/79 04/13/25 20:00 Pulse Ox 98 04/13/25 20:00 O2 Del Method Room Air 04/13/25 20:00 04/13/25 04/13/25 04/13/25 06:59 14:59 22:59 Intake Total 635.567 / 2421.880 1147.413 / 1147.413 Output Total 0 / 70 75 / 75 Balance 635.567 / 2351.880 1072.413 / 1072.413 Weight last 48 hrs Weight 86.5 kg Weight 86.4 kg Weight 86.4 kg Physical Exam 2 Narrative: Patient is awake alert, frail elderly male, no acute distress On room air No JVD PERRLA S1-S2 regular rate and rhythm Lungs with decreased breath sounds bilaterally Abdomen soft nontender Extremities no pedal edema has Skin rash, improving Urinary Catheter Management: Rao: Cath Placed During This Visit: yes Reason for Continuing Indwelling Catheter: Acute Urinary Retention or Obstruction Urinary Catheter Date of Insertion: 04/11/25 Data 04/13/25 06:52 04/13/25 18:11 Micro: Microbiology 04/12/25 11:59 Blood Culture - Preliminary Blood NEGATIVE TO DATE 04/12/25 11:54 Blood Culture - Preliminary Blood NEGATIVE TO DATE A&P Assessment and plan 1. Rash: Vasoplegic shock?improving ? Off minimal pressor support Continue hemodynamic monitoring Gentle volume as needed Discontinue octreotide Immune-mediated drug hypersensitivity reaction ? Continue systemic steroids ? Avoid beta-lactam antibiotics ? Document severe penicillin/Augmentin allergy Acute kidney injury ? Likely secondary to shock and immune reaction Nephrology consulted, differential ATN versus AIN. Appreciate recommendations. Sediment sent ? Monitor creatinine and urine output, continue Rao catheter for now Avoid nephrotoxins Rash, improving, no evidence of vasculitis or purpura Thrombocytopenia/anemia Stable, no evidence of microangiopathic hemolysis, continue to trend CBC Disposition: Patient with significant clinical improvement following treatment for immune mediated drug hypersensitivity reaction causing vasoplegic/distributive shock. Initial presentation admit to septic shock. However, lack of infectious source, presence of eosinophilia and elevated IgE, preserved complements, diffuse blanching rash, hypothermia and strong response to steroids, rewarming and volume support favor drug-induced immune vasoplegia. Likely beta-lactam associated. No evidence at this time for TTP or Sjogren's flare as primary etiology Patient is stable for downgrade to MedSurg/telemetry. Family updated and in agreement with current plan PDMP PDMP Reviewed: Not Reviewed Attestations 2 Medical Necessity Statement*: Due to his comorbidities, acute vasoplegia, shock, recovered kidney function, patient requires likely hospitalization for 2 midnights or more Coding Level of Care Code Critical Care >/= 30 minutes Critical care time (in minutes): 65 The high probability of a clinically significant, sudden or life threatening deterioration, as referenced in this documentation, required my full and direct attention, intervention and personal management. The critical care time shown is in addition to time spent performing any reported separately billable procedures and includes the following: [x] Data and vital sign review and interpretation [x ] Patient assessment, examination and intervention [x] Medication orders and management [x] Patient/Family updates as able [x] Care Coordination and Documentation. Other Coding Information 65 minutes total of critical care time was spent evaluating patient, developing a diagnosis, monitoring treatment, use of vasopressors, discussions with nurse and family. Diagnoses Rash R21
--- NOTE | 2025-04-13 21:04 | USCV_ITS ---
Moiz Hernandez Age: 89 Gender: M : 1935 Exam Date: 04/13/2025 22:38 Ordering Phys: Tin Pace MD Technologist: RICHELLE Exam Location: [facility] [place] Indication: Shock, History of HTN, DM2, CAD s/p TAVR 2022, MVP, pacer BP: 107 / 54 HR: 59 Rhythm: Atrial Fibrillation Technical Quality: Adequate MEASUREMENTS (Male / Female) Normal Values 2D ECHO LV Diastolic Diameter PLAX 4.1 cm 4.2 - 5.9 / 3.9 - 5.3 cm IVS Diastolic Thickness 1.5 cm 0.6 - 1.0 / 0.6 - 0.9 cm IVS Systolic Thickness 1.5 cm LVPW Diastolic Thickness 1.7 cm 0.6 - 1.0 / 0.6 - 0.9 cm LVPW Systolic Thickness 1.6 cm LVOT Diameter 2.1 cm LV Ejection Fraction 2D Teich 55.2 % LV Ejection Fraction MOD 4C 56.9 % LV Ejection Fraction MOD 2C 62.9 % LV Ejection Fraction 2C AL 63.3 % LA Diameter 6.0 cm Aorta at Sinotubular Diameter 3.1 cm IVC Diameter 3.4 cm M-MODE LA Ao Ratio MM 1.9 AV Cusp Separation MM 1.7 cm DOPPLER AV Peak Velocity 149.0 cm/s LVOT Peak Velocity 77.0 cm/s AV Area Cont Eq vti 1.8 cm squared AV Area Cont Eq pk 1.7 cm squared MV Peak Velocity 183.0 cm/s MV Area PHT 1.8 cm squared Mitral E to A Ratio 0.0 TV Peak Velocity 258.7 cm/s TR Peak Velocity 270.0 cm/s TR Peak Gradient 29.2 mmHg TV Peak E Velocity 82.0 cm/s PV Peak Velocity 97.0 cm/s FINDINGS Left Ventricle Normal left ventricular cavity size. Left ventricular ejection fraction is estimated at 55 %. Flattened septum in diastole consistent with right ventricle volume overload. In the presence of atrial fibrillation diastolic function cannot be assessed accurately. Right Ventricle Severe increased right ventricular size. Moderate pulmonary hypertension, PA 45mmhg Right Atrium Moderately increased right atrial size. Left Atrium Moderately increased left atrial size. IA Septum not well visualized perhapse normal Mitral Valve Normal mitral valve structure. trace mitral valve stenosis or regurgitation. Aortic Valve There appeared to be a bioprosthetic aortic valve sitting in normal position without significatn paravalvularr leak, there is trace to milld valvular leak. Tricuspid Valve Severe tricuspid valve regurgitation. Pulmonic Valve Xhmc-cl-yfypdiha pulmonary valve regurgitation. Pericardium No pericardial effusion. Aorta Normal diameter of the aortic root and ascending thoracic aorta. IVC Moderately dilated IVC with decreased respiratory variation. CONCLUSIONS Normal left ventricular cavity size. Left ventricular ejection fraction is estimated at 55 %. Flattened septum in diastole consistent with right ventricle volume overload. In the presence of atrial fibrillation diastolic function cannot be assessed accurately. Severe increased right ventricular size. Moderate pulmonary hypertension, PA 45mmhg Moderately increased bi atrial size. There appeared to be a bioprosthetic aortic valve sitting in normal position without significatn paravalvularr leak, there is trace to milld valvular leak. Severe tricuspid valve regurgitation. Qkaz-lz-zylkndpy pulmonary valve regurgitation. There is no pericardial effusion. Right atrial pressure is around 20 mm of mercury. Cely Nguyễn MD (Electronically Signed) Final Date: 14 April 2025 10:41 S
[2025-04-14] VITALS (11 sets, daily range): BP systolic 104–137; BP diastolic 55–78; PULSE 60–71; RESP 16–24; TEMP 36.4–37.2; O2SAT 92–98
[2025-04-14] MEDS: hydrocortisone 100 mg/2 mL SDV IVP ×2 (02:46→07:58)
[2025-04-14 07:54] LABS: SS A Ro Sjogrens Antibody >8.0 POS AI (<1.0 NEG); SS-B/LA IGG >8.0 POS AI (<1.0 NEG)
--- NOTE | 2025-04-14 09:19 | PC.SOCIAL ---
IMM Updated Updated pt's family on IMM. No questions voiced. Provided pt a copy. Initialed, dated, & timed a copy & placed in chart.
[2025-04-14 11:28] LABS: Glucose Urine UA Negative (Normal); Nitrate Urine Negative (Negative); Specific Gravity, Urine 1.019 (1.005-1.030)
[2025-04-14 11:33] LABS: Add Urine Microscopic? YES
[2025-04-14] MEDS: dextrose 5%-sod chloride 0.9% 1,000 ML 50 ML IV (11:51)
[2025-04-14] MEDS: albumin 25 G/100 ML BAG 60 G IV (11:51)
[2025-04-14 12:24] LABS: UA Slide Review UA Slide Review Perf
--- NOTE | 2025-04-14 14:32 | P.PN_ITS ---
Subjective 2 Subjective: Patient seen at bedside today, family friends are with him. He is awake and alert, more talkative today than yesterday, making more verbal sense. Patient remains weak, and bedbound Patient appears more diffusely erythemic than yesterday, denies pruritus Patient is also wheezing Vitals/I&O/Wt Last Vital Signs Temp 98.4 F 04/14/25 12:00 Pulse 60 04/14/25 12:25 Resp 24 H 04/14/25 12:21 BP 104/55 04/14/25 12:00 Pulse Ox 98 04/14/25 12:21 O2 Del Method Room Air 04/14/25 12:21 04/13/25 04/14/25 04/14/25 22:59 06:59 14:59 Intake Total 100 / 5901.117 1961 / 1460 Output Total 100 / 175 150 / 325 Balance -100 / 972.413 -50 / 640.273 4696 / 1460 Weight last 48 hrs Weight 89.584 kg Weight 86.5 kg Physical Exam 2 Narrative: Patient is awake alert, frail elderly male, no acute distress On room air No JVD PERRLA S1-S2 regular rate and rhythm Lungs with decreased breath sounds bilaterally. Positive wheezes bilaterally expiratory Abdomen soft nontender Extremities no pedal edema has Skin rash, improving Urinary Catheter Management: Rao: Cath Placed During This Visit: yes Reason for Continuing Indwelling Catheter: Acute Urinary Retention or Obstruction Urinary Catheter Date of Insertion: 04/11/25 Data 04/13/25 06:52 04/13/25 18:11 Micro: Microbiology 04/12/25 21:39 Urine Culture - Preliminary Urine,Clean Catch 04/12/25 11:59 Blood Culture - Preliminary Blood NEGATIVE TO DATE 04/12/25 11:54 Blood Culture - Preliminary Blood NEGATIVE TO DATE A&P Assessment and plan 1. Rash: Vasoplegic shock?resolved ? Off minimal pressor support Continue hemodynamic monitoring with difficult blood pressure cuff intervals and vital signs Gentle volume as needed Discontinued octreotide Immune-mediated drug hypersensitivity reaction ? Continue systemic steroids. Switch to IV Solu-Medrol 40 mg daily ? Avoid beta-lactam antibiotics ? Document severe penicillin/Augmentin allergy Acute kidney injury ? Likely secondary to shock and immune reaction Nephrology consulted, differential ATN versus AIN. Appreciate recommendations. Sediment sent ? Monitor creatinine and urine output, continue Rao catheter for now Avoid nephrotoxins Rash, improving, no evidence of vasculitis or purpura Thrombocytopenia/anemia Stable, no evidence of microangiopathic hemolysis, continue to trend CBC Disposition: Patient with significant clinical improvement following treatment for immune mediated drug hypersensitivity reaction causing vasoplegic/distributive shock. Initial presentation admit to septic shock. However, lack of infectious source, presence of eosinophilia and elevated IgE, preserved complements, diffuse blanching rash, hypothermia and strong response to steroids, rewarming and volume support favor drug-induced immune vasoplegia. Likely beta-lactam associated. No evidence at this time for TTP or Sjogren's flare as primary etiology Patient is showing some signs of recurrent hypersensitivity, possibly residual? ? Resume Deannau-Livier Wallace Patient is stable to maintain on MedSurg/telemetry. Plan was originally to consider [facility] to [facility] facility today, but with recurrent erythema and wheezing, patient is not medically stable for discharge. Family updated and in agreement with current plan PDMP PDMP Reviewed: Not Reviewed Attestations 2 Medical Necessity Statement*: Due to his comorbidities, acute vasoplegia, shock, recovered kidney function, patient requires likely hospitalization for 2 midnights or more Diagnoses Rash R21
[2025-04-14 14:51] LABS: COMPLEMENT, TOTAL (CH50) 37 U/mL (31-60)
[2025-04-14 15:41] LABS: Hematocrit 34.2 % (37-53); Hemoglobin 9.90 g/dL (11.27-16.99); Mean Corpuscular HGB Conc 28.9 g/dL (30-55); Mean Corpuscular Hemoglobin 28.7 pg (27-33); Mean Corpuscular Volume 99.1 fl (82-101); Nucleated Red Blood Cells % 0.4 %; Platelet Count 60 10^3/cmm (157-399); Red Blood Count 3.45 10^6/uL (3.85-5.65); White Blood Count 11.25 10^3/uL (3.29-11.43)
[2025-04-14 16:02] LABS: Add RBC Morph Yes; Pathology Refferal No; Poikilocytosis 2+; RBC Morph Comp No; Slide Review Slide Review Perform
[2025-04-14 16:28] LABS: COMPLEMENT COMPONENT C3C 60 mg/dL; COMPLEMENT COMPONENT C4C 11 mg/dL
--- NOTE | 2025-04-14 19:09 | P.PN_ITS ---
Subjective 2 Subjective: delirious , pulled IV , UOP dropped Medications: Reviewed: Yes Vitals/I&O/Wt Last Vital Signs Temp 98.0 F 04/14/25 16:00 Pulse 62 04/14/25 16:00 Resp 16 04/14/25 16:00 BP 115/72 04/14/25 16:00 Pulse Ox 92 04/14/25 16:00 O2 Del Method Room Air 04/14/25 16:00 04/14/25 04/14/25 04/14/25 06:59 14:59 22:59 Intake Total 100 / 8124.049 2961.167 / 1604.167 Output Total 150 / 325 Balance -50 / 864.736 4918.167 / 1604.167 Weight last 48 hrs Weight 89.584 kg Weight 86.5 kg Physical Exam 2 Narrative: lethargic , frail elderly male, no acute distress On room air No JVD PERRLA S1-S2 regular rate and rhythm Lungs with decreased breath sounds bilaterally Abdomen soft nontender Extremities no pedal edema has Skin rash Urinary Catheter Management: Rao: Cath Placed During This Visit: yes Reason for Continuing Indwelling Catheter: Other Urinary Catheter Date of Insertion: 04/11/25 Data 04/14/25 15:25 04/13/25 18:11 Micro: Microbiology 04/12/25 21:39 Urine Culture - Preliminary Urine,Clean Catch A&P Assessment and plan 1. JOSSELYN (acute kidney injury): 1. Plan: 1. Acute on chronic kidney disease stage III: Baseline creatinine seems to be in the mid 1 range. Creatinine on presentation was 1.9 worsened to 3.0 currently, oliguric and has hyperkalemia. Etiology likely -Ddx - in the setting of shock, AIN suspected distributive shock. Initially UA was bland , repeat UA in the setting of ATN showed proteinuria and microscopic hematuria but will repeat UA once JOSSELYN improved. Serological workup pending - Will check renal ultrasound, on IV albumin, - Urine output dropped , Renal fxn worse and worsened mental status --> plan for temporary HD catheter placement - family wishes to consider temporary HD 2. Thrombocytopenia, : monitor , Hb stable - unlikely hemolysis , monitor 3. Probable adenal insufficiency, patient was on chronic steroids- now on high-dose steroids-hydrocortisone 100 mg every 6 hours. 4. Skin rash, status post biopsy as outpatient which was consistent with drug reaction. Discontinued all potential meds. on steroids 5. status post TAVR 6. History of CHF 7. History of Sjogrens syndrome, with possible flare up, repeat serologies were pending Patient evaluated using audiovisual cart. Time spent 40 minutes PDMP PDMP Reviewed: Not Reviewed Attestations 2 Medical Necessity Statement*: per mediicne team Coding Level of Care Code Acute Code for [facility] Diagnoses JOSSELYN (acute kidney injury) N17.9
--- NOTE | 2025-04-14 19:12 | US_ITS ---
WS: [id number] RENAL ULTRASOUND HISTORY: JOSSELYN COMPARISON: 02/05/2022 RIGHT upper quadrant ultrasound TECHNIQUE: 2-D and color Doppler imaging of the kidney submitted. Right kidney: 11.1 cm x 5.6 cm x 5.5 cm. Cortex: 0.7 cm Normal length kidney. There is now diffuse cortical thinning which is new since 2021. Reidentified is a cyst in the upper pole measuring 2.9 cm. No renal obstruction. Left kidney: 11.1 cm x 6.6 cm x 6.1 cm. Cortex: 1.2 cm Normal echogenicity with no hydronephrosis or mass. Aorta: Normal. Urinary Bladder: Nondistended. Rao catheter is present. Small amount of ascites adjacent to the liver. US/US renal BI* [id number] IMPRESSION: 1. No renal obstruction. 2. Normal size RIGHT kidney but there is diffuse cortical thinning and increas ed echogenicity. Chronic medical renal disease and cortical thinning are new si nce 02/05/2022.
[2025-04-14 19:16] LABS: Anion Gap 28.3 (5-19); Blood Urea Nitrogen 76 mg/dL (8-23); Calcium 7.3 mg/dL (8.5-10.5); Carbon Dioxide 15 mmol/L (22-29); Chloride 103 mmol/L (98-107); Glucose 151 mg/dL (65-115); Osmolality Calculated 318 mOsm/kg (285-295); Potassium 5.3 mmol/L (3.5-5.1); Sodium 141 mmol/L (136-145)
[2025-04-14 21:26] LABS: ABG PCO2 37.0 mmHg (35-45); ABG PH Result 7.28 (7.35-7.45); Alveolar-Arterial Oxygen Gradi 2.7 mmHg (5-10); Arterial Blood Gas Hematocrit 31.2 % (42-52); Blood Gas Sample Site Brachial, right; Blood Gas Sample Type Arterial; Carboxyhemoglobin 1.0 %THgb (0.4-20.1); Glucose Level-ABG 123.0 mg/dL (70-115); HCO3 ABG 17.3 mmol/L (22-26); Ionized Calcium Level - ABG 0.9 mmol/L (1.1-1.4); Methemoglobin 1.2 % (0.4-1.5); Oxygen Saturation ABG 95.2; PO2 ABG 82.4 mmHg (80.0-100.0); Potassium Level - ABG 5.1 mmol/L (3.5-5.0); Sodium Level - ABG 143.0 mmol/L (131-143)
[2025-04-15] VITALS (51 sets, daily range): BP systolic 80–123; BP diastolic 50–80; PULSE 0–125; RESP 7–105; TEMP 31.7–37.1; O2SAT 58–99; BMI 24.1
[2025-04-15] MEDS: albumin 25 G/100 ML BAG 60 G IV (00:27)
--- NOTE | 2025-04-15 01:57 | PC.NURSE ---
Addendum entered by WHITNEY Schrader 04/15/25 02:38: notified of patients continued thrashing gave orders to begin precedex laverne Original Note: Patient arrived to ICU 10 at 0053. Patient alert to self only. Unable to follow commands, large rash covering entirety of body, several skin tears from blood in outer corner of left eye. Patients rectal temp on arrival 89.1 and brian hugger was added to patient. notified and came to bedside. No new orders.
[2025-04-15 02:08] LABS: Reflex FDPQ test REFLEX FDP QUEST TES
[2025-04-15 02:19] LABS: INR 1.38 (0.8-1.2); Prothrombin Time 17.90 SECONDS (12.1-14.9)
[2025-04-15 02:20] LABS: Partial Thromboplastin Time 35.3 SECONDS (23.9-36.7)
[2025-04-15 02:24] LABS: Fibrinogen 158 mg/dL (174-498)
[2025-04-15] MEDS: dexmedeTOMIDine 0.9 % NaCL 400 MCG/100 ML PREMIX IV (02:25)
--- NOTE | 2025-04-15 03:30 | PC.NURSE ---
Due to condition of patients skin, telemetry monitoring is difficult to obtain regularly. Carotid monitored closely along with finger pulse oximetry to ensure patient has palpable pulse. Telemtry now reading properly.
[2025-04-15] MEDS: norepinephrine 4 MG/250 ML BAG 7.5 MG IV (03:48)
[2025-04-15 04:14] LABS: CENTROMERE B ANTIBODY <1.0 NEG AI (<1.0 NEG); JO-1 ANTIBODY <1.0 NEG AI (<1.0 NEG); RNP ANTIBODY 1.4 POS AI (<1.0 NEG); SCL-70 ANTIBODY <1.0 NEG AI (<1.0 NEG); SS-B >8.0 POS AI (<1.0 NEG)
--- NOTE | 2025-04-15 05:43 | PC.NURSE ---
Spoke with patients son, Kodak, at bedside and he stated he had spoken with his mother and they would like to withdraw care and transition to comfort measures. notified and said he would go speak with patients son and shortly.
--- NOTE | 2025-04-15 06:02 | W.PM.EVENTAC ---
Event Note Event Note: Notified by nursing that family would like to withdrawal care. I spoke with Sultana Hernandez(spouse) in-person and confirmed she would like to redirect goals of care to comfort only. Code status changed and orders placed to align with comfort measures only
[2025-04-15] MEDS: LORazepam 2 mg/mL INJ 1 mL IVP ×4 (06:17→18:56)
[2025-04-15] MEDS: morphine 4 mg/mL SDV 1 mL IVP ×6 (06:17→18:57)
--- NOTE | 2025-04-15 06:22 | PC.NURSE ---
Patient transitioned to comfort measures only, son at bedside.
[2025-04-15] MEDS: blistex lip oint 7 gm Tube 1 APPLIC TOPICAL (12:30)
[2025-04-15] MEDS: saliva stimulant spray 30 mL Btl 1 SPRAY MUCOUS MEM (12:31)
[2025-04-15] MEDS: artificial tears Op Soln 15 mL Btl 2 DROP EYE-BOTH (12:32)
--- NOTE | 2025-04-15 13:33 | PC.NURSE ---
Precedex off since shift change in room, MAR updated to reflect this.
[2025-04-16] MEDS: morphine 4 mg/mL SDV 1 mL IVP (00:03)
[2025-04-16] MEDS: LORazepam 2 mg/mL INJ 1 mL 1 MG IVP (00:37)
--- NOTE | 2025-04-16 02:55 | PC.NURSE ---
Addendum entered by Eloisa David RN 04/16/25 06:04: Patient noted to have gold colored ring to wedding finger. Original Note: Asystole noted on telemetry, patient assessed by two RNs (myself and Anuj) and found to have no pulse. Daughter and son Kodak at the bedside. Notified , time of 0249. station supervisor Natividad notified.
--- NOTE | 2025-04-16 04:30 | PC.NURSE ---
Patient transported to [facility] [place] accompanied by malt house kiln operator. Only belonging with self was hernandez covered ring band to left wedding ring finger.
--- NOTE | 2025-04-16 05:50 | PC.NURSE ---
pt transported to the [facility] [place] at [phone]
--- NOTE | 2025-04-16 05:57 | PC.NURSE ---
Asystole noted on telemetry, patient assessed by two RNs (myself and Anuj) and found to have no pulse. Daughter and son Kodak at the bedside. Notified , time of 0249. supervisor benzene refining Natividad notified.
--- NOTE | 2025-04-16 11:27 | PC.NURSE ---
Addendum entered by Sarahi Butler RN 04/16/25 11:40: [employer] sales representative has collected the pt. Addendum entered by Sarahi Butler RN 04/16/25 11:30: contacted [facility]. pt is [facility] from [facility] per Bobby. released to the home at this time. Original Note: contacted [facility] at 0900. [facility] states family call is scheduled at 1100 and will have update then regarding disposition status of pt. contacted [facility] again at 1126. [facility] manufacturing sales representative Nemesio stated that family refused donation. She then stated the body is released. Pending [facility] at this time.
[2025-04-17 11:40] LABS: THYROID PEROXIDASE ANTIBODIES <1 IU/mL (<9)
[2025-04-19 15:34] LABS: DNA AB (DS) CRITHIDIA,IFA NEGATIVE (NEGATIVE)
== END 2025-04-16 07:14 | disposition expired | DRG 682 ==
LOC: ER 16:29 → CSU 18:11 → ICU 04-12 09:30 → MEDSURG 04-13 20:34 → ICU 04-15 00:52 → MEDSURG 04-15 16:46
PROVIDERS: Family Medicine; Hospitalist; Internal Medicine; Admitting Provider Internal Medicine; Emergency Provider Family Medicine; PCP Family Medicine; Visit Provider Internal Medicine
DX: N17.9 Acute kidney failure, unspecified (principal); G93.41 Metabolic encephalopathy; J18.9 Pneumonia, unspecified organism; I50.32 Chronic diastolic (congestive) heart failure; I13.0 Hypertensive heart and chronic kidney disease with heart failure and stage 1 through stage 4 chronic kidney disease, or unspecified chronic kidney disease; R57.9 Shock, unspecified; Z95.4 Presence of other heart-valve replacement; R74.01 Elevation of levels of liver transaminase levels; R29.6 Repeated falls; R21 Rash and other nonspecific skin eruption; Z88.2 Allergy status to sulfonamides; K21.9 Gastro-esophageal reflux disease without esophagitis; Z87.891 Personal history of nicotine dependence; Z83.3 Family history of diabetes mellitus; Z83.438 Family history of other disorder of lipoprotein metabolism and other lipidemia; M35.00 Sjogren syndrome, unspecified; T68.XXXA Hypothermia, initial encounter; Y92.239 Unspecified place in hospital as the place of occurrence of the external cause; D69.6 Thrombocytopenia, unspecified; E11.649 Type 2 diabetes mellitus with hypoglycemia without coma; D64.9 Anemia, unspecified; N18.30 Chronic kidney disease, stage 3 unspecified; E87.5 Hyperkalemia; Z51.5 Encounter for palliative care; E11.22 Type 2 diabetes mellitus with diabetic chronic kidney disease
CPT/HCPCS: 36415; 36416; 36600; 51702; 51798; 70450; 71045; 76770; 80048; 80051; 80053; 80061; 80162; 80503; 81001; 82330; 82803; 82805; 82962; 83036; 83615; 83735; 83880; 84100; 85025; 85045; 85362; 85378; 85384; 85610; 85651; 85730; 86140; 86160; 86162; 86235; 86255; 86376; 86705; 86706; 86709; 86803; 86880; 87040; 87086; 87340; 87637; 92507; 92523; 92526; 92610; 93005; 93306; 93971; 94640; 96372; 97110; 97116; 97161; 97165; 97168; 97530; 97535; 99285; A4570; G0378; J0692; J1200; J1644; J1650; J1720; J2060; J2270; J2354; J2405; J2919; J3490; J7030; J7040; J7042; J7070; J7799; J9999; P9046